=== PATIENT | male | born 1970 | race Caucasian/White ===

== ENCOUNTER 2018-03-04 00:03 | Outpatient (CLI) | payer MEDICAID, SELFPAY ==
[2018-03-04 11:41] LABS: ALT 20 U/L (12-78); AST 16 U/L (15-37); Albumin 3.7 g/dL (3.4-5.0); Alkaline Phosphatase 93 U/L (46-116); Anion Gap 6.9 mmol/L (3-11); BUN 12 mg/dL (7-18); Bilirubin, Total 0.3 mg/dL (0.2-1.0); CO2 29.1 mmol/L (21.0-32.0); CREATININE 0.86 mg/dL (0.70-1.30); Calcium 9.4 mg/dL (8.5-10.1); Chloride 101 mmol/L (98-107); Glucose 123 mg/dL (70-100); Potassium 4.3 mmol/L (3.5-5.1); Sodium 137 mmol/L (136-145); Total Protein 7.6 g/dL (6.4-8.2)
[2018-03-06 15:03] LABS: HCV RNA Detection Quantitative Detected (UNDECT)
== END 2018-03-04 00:23 ==
PROVIDERS: Visit Provider Nurse Practitioner Adult Health
DX: B18.2 Chronic viral hepatitis C (principal)
CPT/HCPCS: 36415; 80053; 87522

== ENCOUNTER 2018-04-06 07:09 | Emergency (ER) | payer MEDICAID, SELFPAY ==
[2018-04-06 07:16] VITALS: BP 149/85; PULSE 77; RESP 20; TEMP 36.5; O2SAT 96
--- NOTE | 2018-04-06 07:32 | ED.GENADUL_ITS ---
Discharge Plan Disposition Patient Disposition: HOME Condition: Stable Discharge Details Chief Complaint: Orthopedic Clinical Impression: Thoracic myofascial strain Primary Care Provider: Hong Villeda ED Provider: Pari Davis Home Meds and New Rx's Prescriptions: No Action pravastatin 10 MG tablet 20 mg PO DAILY RF: 0 buprenorphine-naloxone 1 TAB tablet, sublingual 1 ea Sublingual DAILY RF: 0 multivitamin [Daily Multi-Vitamin] 1 EACH tablet 1 ea PO RF: 0 acetaminophen [Acetaminophen Extra Strength] 500 MG tablet 500 - 1,000 mg PO Q6H PRN RF: 0 metformin [Glucophage] 1,000 MG tablet 1,000 mg PO DAILY RF: 0 polyethylene glycol 3350 17 GM powder in packet 17 gm PO DAILY RF: 0 lisinopril-hydrochlorothiazide 1 EACH tablet 1 tab PO DAILY RF: 0 Discharge Instructions Instructions: Muscle Strain (ED), Thoracic Back Strain (ED) Additional Instructions: Alternate ice and heat to the affected area several times daily for 20 minutes at a time. Alternate Tylenol and Motrin as needed and directed for pain. Use the back stretching and spasm exercises we discussed to help with pain and muscle relaxation. Follow-up with your primary care doctor in 1 week for reevaluation. Return immediately to the emergency department any worsening or new concerning symptoms. Discharge Data Discharge Physician: Pari Davis Medical Decision Making 47-year-old male presents with right thoracic pain for the past 5 days. 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 Pain worse with movement of his head and right arm. Tenderness to palpation R paraspinal thoracic region. No evidence of trauma, infection or rash. Normal heart and lung exam. Pain worse with movement of his head and right arm. Neurovascularly intact. No focal deficits. Discussed with patient that his symptoms appear consistent with thoracic strain due to frequent lifting and movement of his upper body. I do not see an indication for x-ray patient is agreeable. We will give a dose of ibuprofen here. Patient states he is on Suboxone. Upon review of medications, most muscle relaxers including Flexeril and Soma have a risk of serotonin syndrome with Suboxone. Patient states he last took his Suboxone yesterday. I discussed with patient my concern for this serious medication reaction, and if he plans to hold his Suboxone for several days, he can discuss with his primary care doctor if he needs a muscle relaxer. Discussed that the most important treatment would be continual anti-inflammatories, ice and heat, and using a exercise or tennis ball against a wall to put pressure on the muscle strain and spasm. Patient expressed concern that he was not being treated properly due to him being on the Suboxone. I explained to him again that it was due to the risk of serotonin syndrome, and my concern that if he holds his Suboxone, and takes Flexeril, and feels discomfort without Suboxone, I would be concerned if he took his Suboxone and had a serious reaction. Patient states he is concerned with holding Suboxone. He states he is agreeable with the plan at this time, and will follow up with his primary care doctor for reevaluation if needed. He is instructed to return here at any time for reevaluation if symptoms worsening. HPI General Mode of arrival: ambulatory . Date/Time Provider Initiated Documentation: 04/06/18 07:16 . Limitations to Documentation: no limitations . Information obtained by: patient . HPI Narrative: Pt is a 47yo M who presents to the ED with a complaint of right upper back pain for the past 5 days. 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 He denies any fall or direct blunt injury. Patient states he has been taking ibuprofen, alternating ice and heat without relief. Patient states he is on Suboxone. He denies any fever, chest pain, shortness of breath, abdominal pain, extremity weakness or numbness. He is admitting to occasional pain radiating down his right arm into his right elbow worse with movement of his arm. He also admits to worsening pain with movement of his head. Related Data Home Medications Medication Instructions Recorded Confirmed buprenorphine-naloxone 1 ea SUBLINGUAL DAILY 06/03/12 04/06/18 pravastatin 20 mg PO DAILY 06/03/12 04/06/18 multivitamin [Multi Vitamin Daily] 1 ea PO 07/06/12 12/10/13 acetaminophen [Acetaminophen Extra 500 - 1,000 mg PO Q6H PRN 12/10/13 12/10/13 Strength] lisinopril-hydrochlorothiazide 1 tab PO DAILY 12/10/13 04/06/18 metformin [Glucophage] 1,000 mg PO DAILY 12/10/13 04/06/18 polyethylene glycol 3350 17 gm PO DAILY 12/10/13 04/06/18 Allergies Allergy/AdvReac Type Severity Reaction Status Date / Time iso Allergy Uncoded 12/10/13 09:41 General Stated Complaint: Orthopedic ARMANDO: 3 Review of Systems Review of Systems All systems reviewed & are unremarkable except as noted in HPI and below Constitutional Reports as per HPI, Denies chills and Denies fever(s) Eyes Denies blurry vision ENT Denies dizziness, Denies sore throat and Denies throat swelling Cardiovascular Denies chest pain and Denies dyspnea Respiratory Denies cough and Denies dyspnea Gastrointestinal Denies abdominal pain, Denies diarrhea and Denies vomiting Genitourinary Denies hematuria and Denies dysuria Musculoskeletal Reports back pain and Denies numbness Integumentary/Breasts Denies lesions and Denies rash Neurologic Denies dizziness, Denies focal weakness and Denies numbness Allergic/Immunologic Denies throat swelling [facility] Medical History Anxiety (Chronic) Depression (Chronic) Diabetes (Chronic) HTN (hypertension) (Chronic) Hepatitis C (Chronic) Surgical History History of hernia repair (Chronic) Social History Smoking and Tabacco status: Current every day alcohol intake: never substance use type: former substance user Exam Const General: cooperative, healthy appearing and no acute distress HENMT Head: normal to inspection Face and sinus: normal facial exam Eyes General: appearance normal, both eyes and all related structures Neck Neck: normal visual inspection and No submandibular swelling Lymphatic: no lymphadenopathy noted Chest Chest: normal inspection of the chest and no tenderness Resp Effort & Inspection: normal respiratory effort and able to speak in complete sentences Auscultation: clear to auscultation bilaterally Cardio Rate: regular rate Rhythm: regular rhythm GI Inspection: normal to inspection Palpation: soft, not firm, not rigid and nontender Auscultation: normal bowel sounds Back/Spine/Pelvis Thoracic/Lumbar Spine: thoracic and lumbar spine normal to inspection Back/spine/pelvis image: 1. Localized area of tenderness to palpation and worsening pain with movement o f head and right arm. No edema, erythema, ecchymosis, rash or trauma. 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.) Sensory Exam: no sensory deficits noted DTR's: Rt Biceps: 2+, Lt Biceps: 2+, Rt Brachioradialis: 2+ and Lt Brachioradialis: 2+ Extrem General: normal to inspection, full ROM, normal capillary refill and no edema Psych Appearance: grossly normal Mental Status: mental status grossly normal Speech and Movement: speech and movement normal Affect: normal affect Course Vital Signs Temperature 97.7 F 04/06/18 07:16 Pulse 77 04/06/18 07:16 Respiratory Rate 20 04/06/18 07:16 Blood Pressure 149/85 H 04/06/18 07:16 Pulse Oximetry 96 04/06/18 07:16 Temperature 97.7 F 04/06/18 07:16 Temperature Source Temporal Artery Scan 04/06/18 07:16 Pulse 77 04/06/18 07:16 Respiratory Rate 20 04/06/18 07:16 Respiratory Effort 04/06/18 07:21 Blood Pressure 149/85 H 04/06/18 07:16 Blood Pressure Position Sitting 04/06/18 07:16 Pulse Oximetry 96 04/06/18 07:16 Oxygen Delivery Method Room Air 04/06/18 07:16 Oxygen Flow Rate 0 04/06/18 07:16 Pain Level 8 04/06/18 07:16
[2018-04-06] MEDS: Ibuprofen 600 MG TAB (07:35)
== END 2018-04-06 08:04 | disposition home or self-care (01) ==
LOC: ER 07:37
PROVIDERS: Emergency Provider Physician Assistant; PCP Internal Medicine
DX: S29.012A Strain of muscle and tendon of back wall of thorax, initial encounter (principal); X50.3XXA Overexertion from repetitive movements, initial encounter; E11.9 Type 2 diabetes mellitus without complications; Z79.84 Long term (current) use of oral hypoglycemic drugs; I10 Essential (primary) hypertension
CPT/HCPCS: 99283

== ENCOUNTER 2018-04-06 08:05 | Outpatient (CLI) | payer MEDICAID, SELFPAY ==
[2018-04-06 09:23] LABS: ALT 19 U/L (12-78); AST 14 U/L (15-37); Albumin 3.5 g/dL (3.4-5.0); Alkaline Phosphatase 82 U/L (46-116); Anion Gap 9.4 mmol/L (3-11); BUN 10 mg/dL (7-18); Bilirubin, Total 0.2 mg/dL (0.2-1.0); CO2 25.6 mmol/L (21.0-32.0); CREATININE 0.86 mg/dL (0.70-1.30); Calcium 8.9 mg/dL (8.5-10.1); Chloride 102 mmol/L (98-107); Glucose 147 mg/dL (70-100); Potassium 4.4 mmol/L (3.5-5.1); Sodium 137 mmol/L (136-145); Total Protein 7.8 g/dL (6.4-8.2)
[2018-04-09 14:14] LABS: HCV RNA Detection Quantitative Undetected IU/mL (UNDECT)
== END 2018-04-06 08:25 ==
LOC: NCHCN 08:07 → LBO 08:16
PROVIDERS: PCP Internal Medicine; Visit Provider Nurse Practitioner Adult Health
DX: B18.2 Chronic viral hepatitis C (principal)
CPT/HCPCS: 36415; 80053; 87522

== ENCOUNTER 2018-11-11 01:33 | Outpatient (CLI) | payer MEDICAID, SELFPAY ==
[2018-11-11 10:13] LABS: ALT 23 U/L (16-63); AST 12 U/L (15-37); Albumin 3.7 g/dL (3.4-5.0); Alkaline Phosphatase 90 U/L (46-116); BUN 13 mg/dL (7-18); Bilirubin, Total 0.4 mg/dL (0.2-1.0); CREATININE 0.87 mg/dL (0.70-1.30); Calcium 9.2 mg/dL (8.5-10.1); Chloride 99 mmol/L (98-107); Glucose 166 mg/dL (70-100); Potassium 4.4 mmol/L (3.5-5.1); Sodium 137 mmol/L (136-145); Total Protein 7.6 g/dL (6.4-8.2)
[2018-11-13 15:57] LABS: HCV RNA Detection Quantitative Undetected IU/mL (UNDECT)
== END 2018-11-11 01:53 ==
PROVIDERS: PCP Internal Medicine; Visit Provider Nurse Practitioner Adult Health
DX: B18.2 Chronic viral hepatitis C (principal)
CPT/HCPCS: 36415; 80053; 87522

== ENCOUNTER 2018-11-15 08:10 | Day surgery (SDC) | payer MEDICAID, SELFPAY ==
[2018-11-15 08:24] VITALS: BP 136/71; PULSE 83; RESP 16; TEMP 35.9; O2SAT 94
[2018-11-15] MEDS: Lactated Ringers 1,000 ML 80 ML IV (08:41)
--- NOTE | 2018-11-15 09:43 | W.COLOREPORT ---
Date of service: 11/15/18 Time of Service: 09:44 Colonoscopy Report Date of procedure: 11/15/18 Pre-op diagnosis general: CRC screening Post-op diagnosis procedure note: same Procedure: CE Surgeon: Magalis Fitzgerald Anesthesia proc note operative: GETA Estimated blood loss (mL): 0 Pathology: none sent Complications: None Disposition: same day Prep: Miralax/Dulcolax Retraction Time: 12 mins Procedure Description: After informed consent was obtained the patient was taken to the procedure room and placed in a left decubitous position. Monitors were applied and a time out was done. The patients name, date of , procedure, allergies to medications and metal in their body was reviewed. The patient was then sedated. Once sedated and comfortable a rectal exam was done. External exam was normal. Internal exam revealed a normal sphincter tone and no palpable masses. The prostate nl. The scope was then introduced and retrofelexed. No internal hemorrhoids were identified. The scope was then advanced to the cecum without difficulty. The TI and appendiceal orifice were identified. The prep was poor. The scope was then slowly retracted over 10 minutes back into the rectum. Lesions less than 5mm may have been missed secondary to poor prepp. There are no polyps AVMs or diverticula apparent. The scope was removed and the patient was woken up and taken back to Same day surgery in stable condition. The patient tolerated the procedure well and there were no immediate complications. Follow up: The patient should follow up in 10 years unless they develop changes in bowel habits or other new gastrointestinal complaints. Pt is on chronic suboxone therapy, and has problems w/ chronic constipation and needs to start fiber supplement.
--- NOTE | 2018-11-15 09:45 | W.PM.DSUDISC ---
Discharge Plan Disposition Patient Disposition: HOME Condition: Good Discharge Details Attending Provider: Magalis Fitzgerald Primary Care Provider: Hong Villeda Home Meds and New Rx's Prescriptions: Continued celecoxib [Celebrex] 400 mg capsule 400 mg PO DAILY PRNRF: 0 lisinopril 20 mg tablet 20 mg PO DAILY RF: 0 aspirin 81 mg tablet,delayed release (DR/EC) 81 mg PO DAILY RF: 0 pravastatin 10 MG tablet 20 mg PO DAILY RF: 0 buprenorphine-naloxone 1 TAB tablet, sublingual 1 ea Sublingual DAILY RF: 0 multivitamin [Daily Multi-Vitamin] 1 EACH tablet 1 ea PO RF: 0 acetaminophen [Acetaminophen Extra Strength] 500 MG tablet 500 - 1,000 mg PO Q6H PRN RF: 0 metformin [Glucophage] 1,000 MG tablet 1,000 mg PO DAILY RF: 0 polyethylene glycol 3350 17 gram powder in packet 17 gm PO DAILY PRNRF: 0 Discontinued polyethylene glycol 3350 17 gram/dose powder 238 g PO ONCE Qty: 238 RF: 0 bisacodyl [Dulcolax (bisacodyl)] 5 mg tablet,delayed release (DR/EC) 5 mg PO ONCE Qty: 4 RF: 0 Discharge Instructions Additional Instructions: Findings:normal *Start Fiber product (benefiber/metamucil/citracel) daily Follow up:repeat in 10 yrs Next C Scope- 2 day prep Please call if you develop: fevers >101.5 Nausea or Vomiting Abdominal pain that is not transient DAY SURGERY UNIT POST COLONOSCOPY INSTRUCTIONS 1. Because there will be medication in your system for the next 24 hours, you may feel a little sleepy. Your coordination will be affected. Therefore: a. Do not drive or operate dangerous equipment for 24 hours. b. Do not drink alcohol beverages for 24 hours (not even beer). c. Plan to go home and rest for the day. 2. Generally there are no restrictions on your activity after a day or so has gone by, but you may feel a bit fatigued for a few days. 3 After you arrive home you may have a light meal and return to a normal diet as you can tolerate it without feeling sick to your stomach. 4. After surgery, you may feel pain or discomfort. This should be only transient, but if it persists please contact your doctor. 5. If there are any questions regarding the findings of your procedure, please feel free to contact your doctor. 6. If you are unable to contact your doctor with a problem, contact the hospital at [phone]. 7. Continue all your regular medications unless directed otherwise. I understand the above instructions and have no questions. Signature of Patient or Responsible Adult Escort Date/Time Name of Responsible Adult Escort Signature of Nurse Date/Time Discharge Orders Discharge Orders: Discharge Order (Routine); Ordered 11/15/18 Ordered By: Magalis Fitzgerald DS: Diagnosis Discharge Diagnosis (1) Colon cancer screening: Status: Acute
[2018-11-15 10:10] VITALS: BP 123/80; PULSE 73; RESP 18; TEMP 36; O2SAT 93
== END 2018-11-15 10:20 | disposition home or self-care (01) ==
LOC: SUR 11-16 07:18
PROVIDERS: PCP Internal Medicine; Visit Provider Surgery
PROC: 0DJD8ZZ Inspection of Lower Intestinal Tract, Via Natural or Artificial Opening Endoscopic (ICD-10-PCS; CPT 45378; principal; 2018-11-15 09:30)
DX: Z12.11 Encounter for screening for malignant neoplasm of colon (principal)
CPT/HCPCS: 45378

== ENCOUNTER 2020-06-12 16:47 | Outpatient (REF) | payer MEDICAID, SELFPAY ==
[2020-06-12 21:02] LABS: Anion Gap 9.8 mmol/L (3-11); BUN 12 mg/dL (7-18); CO2 27.2 mmol/L (21.0-32.0); CREATININE 0.8 mg/dL (0.70-1.30); Calcium 8.9 mg/dL (8.5-10.1); Chloride 102 mmol/L (98-107); Glucose 128 mg/dL (74-106); Potassium 4.1 mmol/L (3.5-5.1); Sodium 139 mmol/L (136-145)
== END 2020-06-12 16:48 | disposition home or self-care (01) ==
LOC: NCHCN 16:47
PROVIDERS: PCP Internal Medicine; Visit Provider Internal Medicine
DX: I10 Essential (primary) hypertension (principal)
CPT/HCPCS: 80048

== ENCOUNTER 2021-02-17 15:27 | Outpatient (REF) | payer MEDICAID, SELFPAY ==
[2021-02-24 03:27] LABS: Fentanyl Interpretation Negative.; Fentanyl by LC-MS/MS Negative; Norfentanyl by LC-MS/MS Negative
== END 2021-02-17 15:28 | disposition home or self-care (01) ==
LOC: NCHCN 15:27
PROVIDERS: PCP Internal Medicine; Visit Provider Internal Medicine
DX: F11.21 Opioid dependence, in remission (principal)
CPT/HCPCS: 80354

== ENCOUNTER 2021-06-08 18:58 | Outpatient (REF) | payer MEDICAID, SELFPAY ==
[2021-06-08 20:37] LABS: HCT 45.2 % (40.0-50.0); HGB 14.6 g/dL (13.5-17.5); MCH 29.2 pg (27.0-33.0); MCHC 32.3 % (32.0-36.0); MCV 90.4 fL (80-95); MPV 11.8 fL (8.0-11.0); Platelet Count 270 10^3/uL (130-400); RDW 12.3 % (11.8-14.1); RDW-SD 40.9 fL
[2021-06-08 20:48] LABS: ALT 22 U/L (16-63); AST 18 U/L (15-37); Albumin 3.7 g/dL (3.4-5.0); Alkaline Phosphatase 94 U/L (46-116); Anion Gap 7.9 mmol/L (3-11); BUN 15 mg/dL (7-18); Bilirubin, Total 0.2 mg/dL (0.2-1.0); CO2 31.1 mmol/L (21.0-32.0); CREATININE 1.1 mg/dL (0.70-1.30); Chloride 103 mmol/L (98-107); Glucose 147 mg/dL (74-106); Potassium 4.3 mmol/L (3.5-5.1); Sodium 142 mmol/L (136-145); Total Protein 7.5 g/dL (6.4-8.2)
== END 2021-06-08 18:59 | disposition home or self-care (01) ==
LOC: NCHCN 18:58
PROVIDERS: PCP Internal Medicine; Visit Provider Internal Medicine
DX: I10 Essential (primary) hypertension (principal); E11.9 Type 2 diabetes mellitus without complications
CPT/HCPCS: 80053; 85027

== ENCOUNTER 2021-09-21 16:44 | Outpatient (REF) | payer MEDICAID, SELFPAY ==
[2021-09-28 05:37] LABS: Benzoylecgonine 68 ng/mL (Cutoff: 50); Cocaine Negative ng/mL (Cutoff: 50); Cocaine Interpretation Positive.
== END 2021-09-21 16:45 | disposition home or self-care (01) ==
LOC: NCHCN 16:44
PROVIDERS: PCP Internal Medicine; Visit Provider Internal Medicine
DX: F14.10 Cocaine abuse, uncomplicated (principal)
CPT/HCPCS: 80353

== ENCOUNTER 2021-10-14 12:23 | Outpatient (REF) | payer MEDICAID, SELFPAY ==
--- NOTE | 2021-10-14 09:45 | SKI_PTH ---
PATIENT: Zack Langley LOC: [facility]#:[id number] AGE/SX: 51/M ROOM: RE10/14/[address]: Hong Villeda : 1970 BED: DIS: 10/14/2021 SPEC #: [id number] RECD: 10/14/21 16:51 STATUS: HELADIO RAVI #: [id number] BERE: 10/14/21 09:[address]: Hong Villeda DEPT: Surgical Specimen RECD BY: Shari Zaragoza Tissues: 1 - SKIN BIOPSY(SHAVE/PUNCH) 2 - SKIN BIOPSY(SHAVE/PUNCH) Procedures: SKIN LEVEL 4 Comments: [id number]
== END 2021-10-14 12:24 | disposition home or self-care (01) ==
LOC: NCHCN 12:23
PROVIDERS: PCP Internal Medicine; Visit Provider Internal Medicine
DX: L28.1 Prurigo nodularis (principal)
CPT/HCPCS: 88305

== ENCOUNTER 2022-06-16 12:53 | Outpatient (REF) | payer MEDICAID, SELFPAY ==
[2022-06-16 14:43] LABS: HCT 41.6 % (40.0-50.0); HGB 14.2 g/dL (13.5-17.5); MCH 29.6 pg (27.0-33.0); MCHC 34.1 % (32.0-36.0); MCV 87 fL (80-95); MPV 10.8 fL (8.0-11.0); Platelet Count 230 10^3/uL (130-400); RDW 12.1 % (11.8-14.1); RDW-SD 38.7 fL; WBC 7.69 10^3/uL (4.4-10.8)
[2022-06-16 16:15] LABS: ALT 27 U/L (16-63); AST 15 U/L (15-37); Alkaline Phosphatase 78 U/L (46-116); Anion Gap 10.4 mmol/L (3-11); BUN 12 mg/dL (7-18); Bilirubin, Total 0.1 mg/dL (0.2-1.0); CO2 27.6 mmol/L (21.0-32.0); CREATININE 0.7 mg/dL (0.70-1.30); Calcium 9.2 mg/dL (8.5-10.1); Chloride 100 mmol/L (98-107); Estimated GFR 110.18 (mL/min/1.73m2); Glucose 111 mg/dL (74-106); Potassium 4.2 mmol/L (3.5-5.1); Sodium 138 mmol/L (136-145); Total Protein 7.8 g/dL (6.4-8.2)
== END 2022-06-16 12:54 | disposition home or self-care (01) ==
LOC: NCHCN 12:53
PROVIDERS: PCP Internal Medicine; Visit Provider Internal Medicine
DX: E11.9 Type 2 diabetes mellitus without complications (principal); I10 Essential (primary) hypertension; K75.81 Nonalcoholic steatohepatitis (NASH); F11.21 Opioid dependence, in remission; J44.9 Chronic obstructive pulmonary disease, unspecified
CPT/HCPCS: 80053; 85027

== ENCOUNTER 2022-08-10 10:09 | Outpatient (REF) | payer MEDICAID, SELFPAY ==
--- OUTSIDE RECORDS SUMMARY | 2022-08-10 10:14 | XMS_ITS ---
Author Name Clem Arevalo Address [address] [place] [address] Organization [facility] Address [address] [place] [address] Care Team Providers Care Vice President Sales And Marketing Name Role Phone Clem Arevalo Unavailable [phone] PROBLEMS Type Condition ICD9-CM Code CYF96-CO Code Onset Dates Condition Status SNOMED Code Problem Diabetes E11.9 Active 101977441 Problem Onychomycosis B35.1 Active 223577548 ALLERGIES Substance Reaction Event Type Date Status Isoniazid Unknown Drug Allergy Dec, Active ENCOUNTERS Encounter Location Date Diagnosis [facility] [address] Dec, Ingrown toenail L60.0 ; Onychomycosis B35.1 and Diabetes E11.9 [facility] [address] Nov, Ingrown toenail L60.0 ; Onychomycosis B35.1 ; Diabetes E11.9 and Tinea pedis of both feet B35.3 [facility] [address] June, Ingrown toenail L60.0 ; Onychomycosis B35.1 and Diabetes E11.9 [facility] [address] May, IMMUNIZATIONS No Known Immunizations SOCIAL HISTORY Qualifiers Date Current Smoker REASON FOR REFERRAL FUNCTIONAL STATUS PLAN OF CARE Activity Details VITAL SIGNS Height 71 in 2017-01-17 Height 71 in 2016-11-29 Height 71 in 2016-06-28 Weight 276.0 lbs 2017-01-17 Weight 288 lbs 2016-06-28 BMI 38.49 kg/m2 2017-01-17 BMI 40.16 kg/m2 2016-06-28 Temperature 98.5 degrees Fahrenheit Temperature 98.2 degrees Fahrenheit Temperature 97.9 degrees Fahrenheit Heart Rate 88 /min 2017-01-17 Heart Rate 95 /min 2016-11-29 Heart Rate 96 /min 2016-06-28 Respiratory Rate 18 /min 2017-01-17 Respiratory Rate 18 /min 2016-11-29 Respiratory Rate 18 /min 2016-06-28 Oximetry 93 % 2017-01-17 Oximetry 97 % 2016-11-29 Oximetry 97 % 2016-06-28 Blood pressure systolic 112 mm Hg Blood pressure diastolic 70 mm Hg 2016-12 MEDICATIONS Medication Instructions Dosage Frequency Start Date End Date Duration Status METFORMIN 500 mg orally daily 4 tab(s) 24h Active Suboxone 4 mg-1 mg sublingually once a day 1 ea 24h Active Chantix Continuing Month Laron 1 mg orally 2 times a day 1 tab(s) 12h Active Pravastatin Sodium 20 mg orally once a day 1 tab(s) 24h Active Triamcinolone Acetonide 0.1% applied topically 2 times a day as needed 1 cesia Active Lisinopril 20 mg orally once a day 1 tab(s) 24h Active Aspirin 81 mg orally once a day 1 tab(s) 24h Active ALEVE sodium 220 mg orally every 12 hours 1 cap(s) 12h Active PROCEDURES Procedure Date Ordered Result Body Site COBAN TAPE (61557) Jan 17, 2017 CONFORM,2in sterile,(53736) Jan 17, 2017 [facility] (25487) Jan 17, 2017 [facility] (28558) Jan 17, 2017 REMOVAL OF NAIL BED Jan 17, 2017 REMOVAL INGROWN TOENAIL Nov 29, 2016 RESULTS No Results REASON FOR VISIT 2 week f/u , P&A Right Great toenail, Referral Done, 4 mo f/u , Pt is here for f/u on chronic ingrown L great toenail, Pt states he spoke to his liver doctor and they stated he shouldNOT take fungal medication at this time, Pt states he thinks a P&A would be a good idea for himnext visit, ingrown toenail referral done requested date, Pt states he had ingrown left big toe until several days ago when he was able to pick it out once the pain had decreased enough to touch the toe., Got antibiotic from PCP; completed., Updated information Insurance Providers Health Insurance Type Health Plan Insurance Address Health Plan Insurance Phone Health Plan Insurance Name Health Plan Coverage Dates Member ID Patient Relationship to Subscriber Patient Address Patient Phone Patient Name Patient Date of Subscriber ID Subscriber Name Subscriber Date of Group No [place] [facility] [id number] [place] KALEY SOUSA [id number] SELF PAY NO INSURANCE [address] [facility] [id number] SELF PAY NO INSURANCE self KALEY SOUSA [id number]
[2022-08-18 11:43] LABS: Benzoylecgonine 144 ng/mL (Cutoff: 50); Cocaine Negative ng/mL (Cutoff: 50); Cocaine Interpretation Positive.
== END 2022-08-10 10:10 | disposition home or self-care (01) ==
LOC: NCHCN 10:09
PROVIDERS: PCP Internal Medicine; Visit Provider Internal Medicine
DX: F14.10 Cocaine abuse, uncomplicated (principal)
CPT/HCPCS: 80353

== ENCOUNTER 2023-02-16 16:00 | Outpatient (REF) | payer MEDICAID, SELFPAY ==
[2023-02-23 07:33] LABS: Cocaine Negative ng/mL (Cutoff: 50)
== END 2023-02-16 16:01 | disposition home or self-care (01) ==
LOC: NCHCN 16:00
PROVIDERS: PCP Internal Medicine; Visit Provider Internal Medicine
DX: F90.0 Attention-deficit hyperactivity disorder, predominantly inattentive type (principal); F14.10 Cocaine abuse, uncomplicated
CPT/HCPCS: 80353

== ENCOUNTER 2023-09-07 12:18 | Outpatient (REF) | payer MEDICAID, SELFPAY ==
--- OUTSIDE RECORDS SUMMARY | 2023-09-07 12:22 | XMS_ITS | Clinical Summary ---
Author Organization [facility] Address [facility] [place] [address] Care Team Providers Care Gut Snatcher Name Role Phone Wendi Singh MD Primary Care Provider [phone] Allergies Active Allergy Reactions Criticality Noted Date Comments Isoniazid High 07/02/2012 ? Rash... Medications Medication Sig Dispensed Refills Start Date End Date Status pravastatin (PRAVACHOL) 20 mg tablet Take 20 mg by mouth daily. Active PRINZIDE 20-12.5 mg Tablet 1 tablet daily. 01/07/2014 Active SUBOXONE 2-0.5 mg Film 4 mg daily. 01/10/2014 Active aspirin 81 mg Tablet, Delayed Release (E.C.) 1 tablet daily. 0 02/25/2014 Active lisinopril (PRINIVIL;ZESTRIL) 20 mg Tablet 20 mg daily. 0 10/28/2014 Active metFORMIN (GLUCOPHAGE-XR) 500 mg Tablet Sustained Release 24 hr 2,000 mg 3 times daily. 0 10/23/2014 Active SUBOXONE 4-1 mg Film DISSOLVE 1 FILM UNDER THE TONGUE ONCE A DAY 0 12/18/2015 Active glimepiride (AMARYL) 4 mg Tablet Take 4 mg by mouth every morning (before breakfast). Active Active Problems Problem Noted Date Diagnosed Date S/P Left total knee arthroplasty, 12/02/13. Spar ks 12/03/2013 Osteoarthritis of knee 09/18/2013 Abnormal laboratory test 07/27/2012 Overview (07/27/2012): RF + secondary to Hep C infection and neg CCP. 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 cryos negative. Depression 11/07/2011 Hepatitis C 11/07/2011 Hyperlipidemia 11/07/2011 Diabetes mellitus 11/07/2011 Resolved Problems Problem Noted Date Diagnosed Date Resolved Date S/P total knee arthroplasty, left 12/05/2013 12/12/2014 Knee pain 11/01/2011 12/12/2014 Family History Medical History Relation Comments Heart Failure Brother 7 High Cholesterol Brother 8 Hypertension Brother 9 Heart Failure Father High Cholesterol Father Hypertension Father Cancer Mother Relation Status Comments Brother 1 Alive age 64 Brother 2 Alive age 55, HCV Brother 3 Alive age 53, CABG Brother 4 Alive age 48, ?HCV Brother 5 Alive premature Brother 6 Alive ?premature twins Brother 7 Brother 8 Brother 9 Father (Age 56) MS Mother (Age 54) cancer Sister 1 Alive age 61 Sister 2 Alive age 45 Sister 3 Alive age 40, psychiat la illness Sister 4 (Age 3) fire Son 1 Alive age 2, healthy Son 2 Alive born 09/26/12, he althy Social History Tobacco Use Types Packs/Day Years Used Date Smoking Tobacco: Every Day Cigarettes 0.5 25 Smokeless Tobacco: Never Tobacco Cessation:Ready to Q uit: No; Counseling Given: Yes Alcohol Use Standard Drinks/Week Comments Yes 4 (1 standard drink = 0.6 oz pur e alcohol) Sex and Gender Information Value Date Recorded Sex Assigned at Not on file Gender Identity Not on file Sexual Orientation Not on file Last Filed Vital Signs Vital Sign Reading Time Taken Comments Blood Pressure 105/58 10/18/2018 9:59 AM EDT Pulse 75 10/18/2018 9:59 AM EDT Temperature 37.1 ??C (98.7 ??F) 01/02/2014 10:[address] Respiratory Rate 16 12/05/2013 2:34 PM EDT Oxygen Saturation 95% 12/05/2013 5:35 AM EDT Inhaled Oxygen Concentration - - Weight 128.4 kg (283 lb) 10/18/2018 9:59 AM EDT Height 181 cm (5' 11.26) 10/18/2018 9:59 AM EDT Body Mass Index 39.18 10/18/2018 9:59 AM EDT Plan of Treatment Health Maintenance Due Date Last Done Comments CT Colonography 1968 Colonoscopy 1968 Colorectal Cancer Screening 1968 FIT DNA 1968 FIT 1968 Sigmoidoscopy (10 year) with FIT yearly 1968 Sigmoidoscopy 1968 DM Opthalmology Exam 1978 DM Urine Microalbumin yearly 1978 Tdap adult 07/23/1987 Tetanus vaccine 07/23/1987 DM Hemoglobin A1c 03/06/2014 12/04/2013 Zoster vaccine (1 of 2) 2018 DM Creatinine yearly 11/12/2019 11/11/2018, 11/11/2018, 04/06/2018, Additional history exists Covid-19 Vaccine (1 - 2022-2 4 season) 2022 Influenza (Flu) vaccine (1 o f 1 - Influenza standard series) 10/29/2023 HIV screen Completed 03/18/2013 Goals Goal Patient Goal Type Associated Problems Recent Progress Patient-Stated? Author DH Home Medication Compliance and Understanding Patient Facing Action Plan No Yaquelin Hutton, [facility] Note: SVR12 through treatment with Mavyret. Medical Devices Implanted Type Area Apparatus Engineering Technologist Device Identifier Shelf Expiration Date Model / Serial / Lot Cement,Bne,Cmw 1,Gnta,40gm ([id number]) - [id number] Implanted:Qty: 1 on 12/02/2013 by Mihir Herrera MD at [facility] IMPLANTS Left: Knee DO NOT USE Depuy Occupational Therapy Program Director - 3527 05/27/2016 0 / / [id number] Tray,Felipa,Rp ,Tib,Base,Sz7 ([id number]) (Autoreq) - [id number] Implanted:Qty: 1 on 12/02/2013 by Mihir Herrera MD at [facility] IMPLANTS Left: Knee DO NOT USE Depuy Occupational Therapy Program Director - 3527 04/26/2022 7 / / [id number] Inser,Felipa,P s,Fem,Sz7,Lt ([id number]) (Autoreq) - [id number] Implanted:Qty: 1 on 12/02/2013 by Mihir Herrera MD at [facility] IMPLANTS Left: Knee DO NOT USE Depuy Occupational Therapy Program Director - 3527 06/27/2023 1503-12-07 / [id number] Felipa Almanza M dl,Augustina,41mm ([id number]) (Autoreq) - [id number] Implanted:Qty: 1 on 12/02/2013 by Mihir Herrera MD at [facility] IMPLANTS Left: Knee DO NOT USE Depuy Occupational Therapy Program Director - 3527 08/26/2016 1517-11-30 / [id number] Felipa Roy P s,Rp,Sz7,7mm ([id number]) (Autoreq) - [id number] Implanted:Qty: 1 on 12/02/2013 by Mihir Herrera MD at [facility] IMPLANTS Left: Knee DO NOT USE Depuy Occupational Therapy Program Director - 3527 06/26/2018 / [id number] Procedures Procedure Name Priority Date/Time Associated Diagnosis Comments EXTERNAL LAB CBC CMP THYROID RESULTS PANEL Routine 11/11/2018 HEMOGLOBIN A1C Routine 12/04/2013 3:54 AM EDT HIV SCREEN, 4TH GENERATION ([facility]/APD/[facility]) Routine 03/18/2013 9:31 AM EST Chronic hepatitis C from Last 3 Months or Most Recently Relevant to Health Maintenance Results * CBC / CMP / Thyroid External Results (11/11/2018) Sodium 137 Potassium 4.4 Chloride 99 CO2 27 BUN 13 Creatinine 0.87 Estimated GFR >60 Glucose Lvl 166 Calcium 9.2 Total Protein 7.6 Albumin 3.7 Total Bilirubin 0.4 Alk Phos 90 AST 12 ALT 23 Historical Provider POINT OF CARE JUAN T ORDERABLES * (ABNORMAL) Hemoglobin A1c (12/04/2013 3:54 AM EDT) Hemoglobin A1C 6.7(H) <=5.6 % NICOLAS Bradley [facility] Comment: Reference Range: 4.3 - 5.6% 5.7 - 6.4% - Increased Risk of Developing Diabetes Mellitus 6.5% - Consistent with diagnosis of Diabetes Mellitus In the absence of hyperglycemia (i.e. plasma glucose > 200 mg/dL) or classic symptoms of hyperglycemia a repeat measurement of HbA1c should be performed on a separate sample to confirm the diagnosis. Diagnosis and Classification of Diabetes Mellitus, Diabetes Care 2013; 36: Suppl. 1, S67-74 Est Avg Gluc 146 mg/dL RANDY [facility] Comment: eAG equivalents for HbA1c percentages: HbA1c(%) ?eAG(mg/dL) 6.0 ?126 6.5 ?140 7.0 ?154 7.5 ?169 8.0 ?183 8.5 ?197 9.0 ?212 9.5 ?226 10.0 ? 240 Limitations: The eAG calculation has not been validated on women, individuals below 18 years old and above 70 years old, and individuals with hemoglobinopathies. Additional resources are available on the ADA website: http://Maxcyte.com/DHMCadacalc lBake KENNEY, Charley J, Gian R, et al. ??Translating the A1C assay into estimated average glucose values. ??Diabetes Care 2008:31(8):2698-5713. Blood specimen (specimen) 12/04/2013 3:54 AM EDT 12/04/2013 10:05 AM EDT Narrative Resulting Agency Comment Spec In Lab Mihir Herrera MD CHEMISTRY ORDERABLES RANDY [facility] * HIV (03/18/2013 9:31 AM EST) HIV 1/2 Ab Negative Negative RANDY MORALES Blood specimen (specimen) 03/18/2013 9:31 AM EST 03/18/2013 9:38 AM EST Narrative Resulting Agency Comment Spec In Lab Mendez Peralta MD IMMUNOLOGY ORDERABL ES RANDY MORALES from Last 3 Months or Most Recently Relevant to Health Maintenance Advance Directives Documents on File Type Date Recorded Patient Fancy Needleworker Expl anation Advance Directives and Livin g Will 07/17/2015 10:05 AM 09/30/13 * Full Code (Latest Code Status on File) Date Activated Date Inactivated Comments 12/02/2013 10:13 AM 12/05/2013 7:37 PM Question Answer Comments Does patient have decision m aking capacity? Yes, order is based on Patient wishes. Care Teams Gut Snatcher Relationship Specialty Start Date End Date Wendi Singh MD [address] [place] [address] PCP - General Family Medicine 12/11/14
--- OUTSIDE RECORDS SUMMARY | 2023-09-07 12:22 | XMS_ITS | Encounter Summary ---
Author Organization [facility] [place] [address] Care Team Providers Care Floating Derrick Operator Name Role Phone Wendi Singh MD Primary Care Provider [phone] Encounter Details Date Type Department Care Team (Late st Contact Info) Description 02/12/2019 External Results [place] [address] Vera Clark MEDICARE SALES EXECUTIVE [facility] [place] [address] Social History Tobacco Use Types Packs/Day Years Used Date Smoking Tobacco: Every Day Cigarettes 0.5 25 Smokeless Tobacco: Never Alcohol Use Standard Drinks/Week Comments Yes 4 (1 standard drink = 0.6 oz pur e alcohol) Sex and Gender Information Value Date Recorded Sex Assigned at Not on file Gender Identity Not on file Sexual Orientation Not on file documented as of this encounter Plan of Treatment Not on file documented as of this encounter Goals Goal Patient Goal Type Associated Problems Recent Progress Patient-Stated? Author [facility] Medication Compliance and Understanding Patient Facing Action Plan Yaquelin Lau, [facility] Note: SVR12 through treatment with Mavyret. documented as of this encounter Procedures Procedure Name Priority Date/Time Associated Diagnosis Comments EXTERNAL LAB CBC CMP THYROID RESULTS PANEL Routine 11/11/2018 EXTERNAL LAB GI RESULTS PANEL Routine 11/11/2018 documented in this encounter Results * GI External Results (11/11/2018) HCV Viral Load <15 Comment:undetected Historical Provider POINT OF CARE JUAN T ORDERABLES * CBC / CMP / Thyroid External Results (11/11/2018) Sodium 137 Potassium 4.4 Chloride 99 CO2 27 BUN 13 Creatinine 0.87 Estimated GFR >60 Glucose Lvl 166 Calcium 9.2 Total Protein 7.6 Albumin 3.7 Total Bilirubin 0.4 Alk Phos 90 AST 12 ALT 23 Historical Provider POINT OF CARE JUAN T ORDERABLES documented in this encounter Visit Diagnoses Not on filedocumented in this encounter Care Teams Floating Derrick Operator Relationship Specialty Start Date End Date Wendi Singh MD [address] [place] [address] PCP - General Family Medicine 12/11/14 documented as of this encounter
--- OUTSIDE RECORDS SUMMARY | 2023-09-07 12:23 | XMS_ITS | Encounter Summary ---
Author Organization [facility] [place] [address] Care Team Providers Care Canal Boat Captain Name Role Phone Ashley Calixto MD Primary Care Provider [phone] Reason for Referral * Occupational Therapy (Routine) - Closed Specialty Diagnoses / Procedures Referred By Casey reyes Referred To Contact Occupational Therapy Diagnoses S/P total knee arthroplasty, left Mihir Herrera MD [facility] [place] [address] [facility] [place] [address] Referral ID Status Reason Start Date Expiration Date V isits Requested Visits Authorized [id number] Closed Evaluate and Treat 04/04/2014 04/04/2015 1 1 Reason for Visit * Reason Onset Date Comments Other 04/04/2014 Encounter Details Date Type Department Care Team (Late st Contact Info) Description 04/04/2014 Telephone [place] [address] Mihir Herrera MD [facility] [place] [address] Other Social History Tobacco Use Types Packs/Day Years Used Date Smoking Tobacco: Every Day Cigarettes 0.5 25 Smokeless Tobacco: Never Comments:stopped on the 8th, using a patch Alcohol Use Standard Drinks/Week Comments Yes 0 (1 standard drink = 0.6 oz pure alcohol) Not drinking at this time. VERY OCCASIONAL Sex and Gender Information Value Date Recorded Sex Assigned at Not on file Gender Identity Not on file Sexual Orientation Not on file documented as of this encounter Miscellaneous Notes * Telephone Encounter - Meghana Gleason RN - 04/04/2014 2:09 PM EST Referral to OT with direction re return to work placed. * Telephone Encounter - Marcelina Pandey - 04/04/2014 11:30 AM EST We received a work capabilities form from [employer] to complete for this patient. In order to proceed, the patient will need to complete a WRAP. Please place the referral so we may review the patient's work capabilities. documented in this encounter Plan of Treatment Scheduled Referrals Name Type Priority Associated Diagnoses Order Schedule Referral to Occupational Therapy Outpatient Referral Routine S/P total knee arthroplasty, left Ordered: 04/04/2014 documented as of this encounter Visit Diagnoses Diagnosis S/P total knee arthroplasty, left- Primary documented in this encounter Care Teams Canal Boat Captain Relationship Specialty Start Date End Date Ashley Calixto MD [address] [place] [address] PCP - General 12/21/11 12/10/14 documented as of this encounter
--- OUTSIDE RECORDS SUMMARY | 2023-09-07 12:23 | XMS_ITS | Encounter Summary ---
Author Organization [facility] Address [facility] [place] [address] Care Team Providers Care Pantograph Operator Name Role Phone Ashley Calixto MD Primary Care Provider [phone] Encounter Details Date Type Department Care Team (Latest Contact Info) Description 05/14/2014 11:58 AM EDT - 05/14/2014 11:59 PM EDT [place] [address] Mendez Peralta MD [facility] DR GASTROENTER[place] [address] Chronic viral hepatitis C; Chronic hepatitis C Discharge Disposition: Home Social History Tobacco Use Types Packs/Day Years Used Date Smoking Tobacco: Every Day Cigarettes 0.5 25 Smokeless Tobacco: Never Comments:stopped on the , using a patch Alcohol Use Standard Drinks/Week Comments Yes 0 (1 standard drink = 0.6 oz pure alcohol) Not drinking at this time. VERY OCCASIONAL Sex and Gender Information Value Date Recorded Sex Assigned at Not on file Gender Identity Not on file Sexual Orientation Not on file documented as of this encounter Medications at Time of Discharge Medication Sig Dispensed Refills Start Date End Date PRINZIDE 20-12.5 mg Tablet 1 tablet daily. 01/07/2014 SUBOXONE 2-0.5 mg Film 4 mg daily. 01/10/2014 aspirin 81 mg Tablet, Delayed Release (E.C.) 1 tablet daily. 0 02/25/2014 pravastatin (PRAVACHOL) 20 mg tablet Take 20 mg by mouth daily. ammonium lactate (LAC-HYDRIN) 12 % Lotion 0 01/09/201412/2014 NAPROXEN SODIUM (ALEVE ORAL) Take by mouth nightly. Takes pm 08/07/2014 METFORMIN HCL (METFORMIN ORAL) Take 4 tablets by mouth daily. 500mg 12/11/2014 documented as of this encounter Plan of Treatment Scheduled Orders Name Type Priority Associated Diagnoses Orde r Schedule CBC (with Diff) Lab Routine Chronic hepatitis C 1 Occurrences starting 05/14/2014 until 05/14/2014 Comprehensive metabolic panel (non-fasting) Lab Routine Chronic hepatitis C 1 Occurrences starting 05/14/2014 until 05/14/2014 documented as of this encounter Procedures Procedure Name Priority Date/Time Associated Diagnosis Comments HCV QUANT Routine 05/14/2014 12:17 PM EDT Chronic hepatitis C SCAN, PERIPHERAL BLOOD Routine 5 12:17 PM EDT NUCLEATED RED BLOOD CELLS Routine 05/14/2014 12:17 PM EDT HEMOGRAM Routine 05/14/2014 12:17 PM EDT Chronic viral hepatitis C DIFFERENTIAL, AUTOMATED Routine 05/14/2014 12:17 PM EDT Chronic viral hepatitis C HEPATITIS C RNA, QUANTITATIVE, PCR Routine 05/14/2014 12:17 PM EDT Chronic hepatitis C CBC (WITH DIFF) Routine 05/14/2014 12:17 PM EDT Chronic viral hepatitis C COMPREHENSIVE METABOLIC PANEL (NON-FASTING) Routine 05/14/2014 12:17 PM EDT Chronic viral hepatitis C documented in this encounter Results * Nucleated Red Blood Cells (05/14/2014 12:17 PM EDT) nRBC % Auto 0.0 % [facility]UM nRBC Abs Auto 0.000 0.000 - 0.012 x10(3)/mcL [facility] [employer] Blood specimen (specimen) 05/14/2014 12:17 PM EDT 05/14/2014 12:27 PM EDT Narrative Resulting Agency Comment Spec In Lab Mendez Peralta MD HEMATOLOGY ORDERABL ES Performing Organization Address [facility] Co de Phone Number [facility] * Scan, Peripheral Blood (05/14/2014 12:17 PM EDT) Pathologist [facility] Plat Estimate Normal [facility] RBC Morphology Normal [facility] Blood specimen (specimen) 05/14/2014 12:17 PM EDT 05/14/2014 12:27 PM EDT Narrative Resulting Agency Comment Spec In Lab Mendez Peralta MD HEMATOLOGY ORDERABL ES Performing Organization Address [facility] Phone Number [facility] * HCV Quant Devonte (05/14/2014 12:17 PM EDT) [facility] HCV Viral Load 1,011,586 IU/mL [facility] HCV Viral Load Result: [id number] IU/mL Indication for Study: Hepatitis C Infection Analysis: A quantitiative real time reverse transcriptase PCR assay was performed on extracted viral RNA for the purpose of quantification. Sample: plasma (1 mL minimum volume) Method: Devonte Jose TaqMAN 48 HCV Linear Range: 15 IU/mL - 100,000,000IU/mL (95% CI) Note: This assay is being performed in the [facility] Molecular Pathology Laboratory. Bertin Beach, Ph.D. Director, Molecular Pathology [facility] Comment: [VERIFIED DATE]05.19.14 Verified By:Michelle Ayala I (Electronic Signature) Blood specimen (specimen) 05/14/2014 12:17 PM EDT 05/16/2014 10:59 AM EDT Narrative Resulting Agency Comment Spec In Lab Mendez Peralta MD HEMATOLOGY ORDERABL ES Performing Organization Address [facility] Co de Phone Number [facility] * (ABNORMAL) Differential, Automated (05/14/2014 12:17 PM EDT) [facility] Neutrophils % 54.4 % [facility] Neutr Abs (ANC) 6.84(H) 1.50 - 6.30 x10(3)/mc L [facility] Lymphocytes % 36.8 % [facility] Lymphocytes Abs 4.6(H) 1.0 - 3.6 x10(3)/mc L [facility] Monocytes % 5.0 % [facility] Monocyte Abs 0.6 0.2 - 1.0 x10(3)/mc L [facility] Eosinophils % 3.2 % [facility]ENNI[facility] Eosinophils Abs 0.4 0.0 - 0.5 x10(3)/mc L [facility] MILLENNIUM Basophils % 0.4 % [facility]ILLENNIUM Basophils Abs 0.0 0.0 - 0.2 x10(3)/mc L [facility] Immature Gran % 0.20 % [facility] Comment: Immature granulocytes(IG's)percentage and absolute count will include metamyelocytes, myelocytes, and promyelocytes. Blood smears from CBCs yielding IG's will be scanned manually for concordance. If this scan disagrees with the automated IG or if promyelocytes are noted, a manual differential will be performed. Alexa Gran Abs 0.02 0.00 - 0.05 x10(3)/mc L [facility]NI[facility] Blood specimen (specimen) 05/14/2014 12:17 PM EDT 05/14/2014 12:27 PM EDT Narrative Resulting Agency Comment Spec In Lab Mendez Peralta MD HEMATOLOGY ORDERABL ES [facility] * (ABNORMAL) Hemogram (05/14/2014 12:17 PM EDT) WBC 12.6(H) 4.0 - 10.0 x10(3)/mcL [facility]NI[facility] RBC 4.88 4.63 - 6.08 x10(6)/mcL [facility] Hemoglobin 14.3 13.7 - 17.5 gm/dL [facility] Hematocrit 41.3 40.0 - 51.0 % [facility] MILLENNIUM MCV 84.6 79.0 - 92.0 fL [facility] MILLENNIUM MCH 29.3 25.6 - 32.2 pg CERNER MILLENNIUM MCHC 34.6 32.0 - 36.5 gm/dL [facility] Platelets 285 145 - 370 x10(3)/mcL [facility]NI[facility] RDWSD 39.7 35.0 - 46.0 fL [facility] MILLENNIUM RDWCV 13.0 10.9 - 14.4 % [facility] MILLENNIUM MPV 11.4 9.0 - 12.0 fL [facility] Blood specimen (specimen) 05/14/2014 12:17 PM EDT 05/14/2014 12:27 PM EDT Narrative Resulting Agency Comment Spec In Lab Mendez Peralta MD HEMATOLOGY ORDERABL ES [facility] * (ABNORMAL) Comprehensive metabolic panel (non-fasting) (05/14/2014 12:17 PM EDT) Glucose Lvl 89 60 - 199 mg/dL [facility] MILLENNIUM Comment:Diabetes: >=200 mg/d L plus symptoms BUN 13 10 - 20 mg/dL [facility] MILLENNIUM Creatinine 0.77(L) 0.80 - 1.50 mg/dL [facility] MILLENNIUM Comment: Please note that the pediatric reference intervals supplied above were not validated at [facility]. Results from pediatric patients should be interpreted in conjunction to the patient's age, height and muscle mass. Sodium 138 135 - 145 mmol/L CERNER MILLENNIUM Potassium 4.5 3.5 - 5.0 mmol/L [facility] MILLENNIUM Comment: Please note: ??Patients with WBC >100,000 may have falsely elevated Potassium levels. ??For accurate Potassium quantification in these patients send serum separator tube (gold top) for subsequent determinations. ??Contact the Clinical Chemistry Laboratory if there are any questions. Chloride 97(L) 98 - 107 mmol/L CERNER MILLENNIUM CO2 25 22 - 31 mmol/L [facility] MILLENNIUM Anion Gap 16(H) 5 - 15 mmol/L [facility]ERN[facility] MILLENNIUM Calcium 9.4 8.5 - 10.5 mg/dL [facility] MILLENNIUM Total Protein 8.0 6.1 - 8.0 gm/dL [facility] MILLENNIUM Albumin 4.2 3.2 - 5.2 gm/dL [facility] MILLENNIUM AST 20 0 - 39 unit/L [facility] MILLENNIUM ALT 27 0 - 55 unit/L [facility] MILLENNIUM Alk Phos 79 40 - 120 unit/L [facility] MILLENNIUM Total Bilirubin 0.2 0.2 - 1.3 mg/dL CERN[facility] MILLENNIUM Bili, Direct 0.1 0.0 - 0.3 mg/dL [facility]ERN[facility] MILLENNIUM Estimated GFR >60 >=60 [facility] MILLENNIUM Comment: This estimated GFR (eGFR) value was calculated using the MDRD equation which has been validated on patients between the ages of 18 and 70. The MDRD should not be used to assess kidney function in patients < 18 years of age or in patients with extremes of body mass, or in patients with acute kidney failure. This value should be multiplied by 1.2 for patients. For further information please copy and paste the following links into your internet browser. http://Viddler/DHnkdep [email or web address]/[email or web address] Blood specimen (specimen) 05/14/2014 12:17 PM EDT 05/14/2014 12:27 PM EDT Narrative Resulting Agency Comment Spec In Lab Mendez Peralta MD CHEMISTRY ORDERABLE S RANDY MORALES documented in this encounter Visit Diagnoses Diagnosis Chronic viral hepatitis C Chronic hepatitis C without mention of hepatic coma Chronic hepatitis C Chronic hepatitis C without mention of hepatic coma documented in this encounter Care Teams Pantograph Operator Relationship Specialty Start Date End Date Ashley Calixto MD [address] [place] [address] PCP - General 12/21/11 12/10/14 documented as of this encounter
--- OUTSIDE RECORDS SUMMARY | 2023-09-07 12:23 | XMS_ITS | Encounter Summary ---
Author Organization [facility] [place] [address] Care Team Providers Care Hydrogen Power Plant Manager Name Role Phone Ashley Calixto MD Primary Care Provider [phone] Reason for Visit * Reason Comments Aftercare Of Tjr L TKA 12/02/13 Encounter Details Date Type Department Care Team (Late st Contact Info) Description 08/07/2014 3:45 PM EDT Office [place] [address] Mihir Herrera MD [facility] [place] [address] Status post left knee replacement (Primary Dx) Discharge Disposition: Home Social History Tobacco Use Types Packs/Day Years Used Date Smoking Tobacco: Every Day Cigarettes 0.5 25 Smokeless Tobacco: Never Tobacco Cessation:Ready to Q uit: No; Counseling Given: Yes Alcohol Use Standard Drinks/Week Comments Yes 0 (1 standard drink = 0.6 oz pure alcohol) Not drinking at this time. VERY OCCASIONAL Sex and Gender Information Value Date Recorded Sex Assigned at Not on file Gender Identity Not on file Sexual Orientation Not on file documented as of this encounter Last Filed Vital Signs Vital Sign Reading Time Taken Comments Blood Pressure 120/69 08/07/2014 4:05 PM EDT Pulse 91 08/07/2014 4:05 PM EDT Temperature - - Respiratory Rate - - Oxygen Saturation - - Inhaled Oxygen Concentration - - Weight 121.4 kg (267 lb 9.6 oz) 08/07/2014 4:05 PM EDT Height 180.3 cm (5' 11) 08/07/2014 4:05 PM EDT Body Mass Index 37.32 08/07/2014 4:05 PM EDT documented in this encounter Progress Notes * Mihir Herrera MD - 08/07/2014 4:45 PM EDT Subjective: Patient ID: Zack Langley is a 44 y.o. male. Case Date: 12/02/2013 Procedure(s): LEFT TOTAL KNEE ARTHROPLASTY MODIFIER: ATTUNE STABILIZED ROTATING PLATFORM DEPUY HPI The patient is doing well overall. He recently moved into a home which he thinks is better for his children. He feels like the knee has dramatically helped him with pain. 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 He does not have any other training. No fever or chills. Sugars have been well controlled. Allergies Allergen Reactions ??? Isoniazid ? Rash... Current Outpatient Prescriptions on File Prior to Visit Medication Sig Dispense Refill ??? PRINZIDE 20-12.5 mg Tablet 1 tablet daily. ??? SUBOXONE 2-0.5 mg Film 2 mg daily. ??? aspirin 81 mg Tablet, Delayed Release (E.C.) 1 tablet daily. 0 ??? METFORMIN HCL (METFORMIN ORAL) Take 4 tablets by mouth daily. 500mg ??? pravastatin (PRAVACHOL) 20 mg tablet Take 20 mg by mouth daily. No current facility-administered medications on file prior to visit. Patient Active Problem List Diagnosis Code ??? Knee pain 719.46 ??? Depression 311 ??? Hepatitis C 070.70 ??? Hyperlipidemia 272.4 ??? Diabetes mellitus 250.00 ??? Neurodermatitis 698.3 ??? Abnormal laboratory test 796.4 ??? Alcohol abuse, in remission 305.03 ??? Narcotic abuse in remission 305.43 ??? Osteoarthritis of knee 715.96 ??? S/P Left total knee arthroplasty, 12/02/13. Javier V43.65 ??? S/P total knee arthroplasty, left V43.65 Review of Systems Objective: Physical Exam Blood pressure 120/69, pulse 91, height 180.3 cm (5' 11), weight 121.383 kg (267 lb 9.6 oz). I have made the following determinations: Post Op Left Knee Exam: Gait Abnormality: Normal Knee ROM: Extension:0 Flexion: 125 Alignment: 0-4 degrees Neutral Stability: A/P Translation <5mm Varus (lateral stability) <5mm Valgus (medial stability) <5mm Extension La degrees or less Patella Tracking: Normal Pulses Palpable: Left PT:Yes Left DP:Yes Motor/Sensory: Distal Motor: Normal Distal Sensory: Normal Quadriceps Strength:5 Assessment and Plan: S/P L TKA Discussed the findings with the patient. Clinically he is doing well from his knee. Discussed vocational rehab as I agree with him that priscilla is certainly more dangerous for him with an arthroplasty. We will see him back at the one year anniversary of his surgery with x-ray. Discussed usual precautions, He knows to call with any questions or concerns. documented in this encounter Plan of Treatment Not on file documented as of this encounter Results * XR knee diagnostic 1 or 2 view (12/11/2014 2:47 PM EDT) Anatomical Region Laterality Modality Knee N/A Digital Radiogra phy Impressions 12/11/2014 4:29 PM EDT IMPRESSION: Left total knee arthroplasty without radiographic complication. I have personally reviewed the image(s) and the residents interpretation and agree with the findings, ELVA ZUNIGA MD at 12/11/2014 4:29 PM Narrative 12/11/2014 4:29 PM EDT EXAMINATION: XR KNEE DIAGNOSTIC 1 OR 2 VIEW/LEFT CLINICAL HISTORY: s/p tka follow up TECHNIQUE: AP view bilateral knees, lateral view left knee COMPARISON: 01/02/2014 FINDINGS: Left total knee arthroplasty remains stable in appearance and alignment. No periprosthetic fracture or lucency is seen. No knee joint effusion. An enthesophyte arises from the superior patellar pole. Single AP view of the right knee is notable for mild medial compartment joint space narrowing, unchanged. Procedure Note Elva Zuniga MD - 12/11/2014 EXAMINATION: XR KNEE DIAGNOSTIC 1 OR 2 VIEW/LEFT CLINICAL HISTORY: s/p tka follow up TECHNIQUE: AP view bilateral knees, lateral view left knee COMPARISON: 01/02/2014 FINDINGS: Left total knee arthroplasty remains stable in appearance and alignment.No periprosthetic fracture or lucency is seen. No knee joint effusion. An enthesophyte arises from the superior patellar pole. Single AP view of the right knee is notable for mild medial compartmentjoint space narrowing, unchanged. IMPRESSION IMPRESSION: Left total knee arthroplasty without radiographic complication. I have personally reviewed the image(s) and the residents interpretationand agree with the findings, ELVA ZUNIGA MD at 12/11/2014 4:29 PM Mihir Herrera MD IMG DX ORDERABLES documented in this encounter Visit Diagnoses Diagnosis Status post left knee replacement- Primary Status post left knee replacement documented in this encounter Care Teams Hydrogen Power Plant Manager Relationship Specialty Start Date End Date Ashley Calixto MD [address] [place] [address] PCP - General 12/21/11 12/10/14 documented as of this encounter
--- OUTSIDE RECORDS SUMMARY | 2023-09-07 12:23 | XMS_ITS | Encounter Summary ---
Author Organization [facility] [place] [address] Care Team Providers Care Group Leader Name Role Phone Wendi Singh MD Primary Care Provider [phone] Reason for Visit * Reason Comments Follow-up Encounter Details Date Type Department Care Team (Late st Contact Info) Description 01/12/2018 10:00 AM EST Office [place] [address] Vera Clark APRN [facility] [place] [address] Chronic hepatitis C without hepatic coma Social History Tobacco Use Types Packs/Day Years Used Date Smoking Tobacco: Every Day Cigarettes 0.5 25 Smokeless Tobacco: Never Alcohol Use Standard Drinks/Week Comments Yes 0 (1 standard drink = 0.6 oz pure alcohol) Not drinking at this time. VERY OCCASIONAL Sex and Gender Information Value Date Recorded Sex Assigned at Not on file Gender Identity Not on file Sexual Orientation Not on file documented as of this encounter Last Filed Vital Signs Vital Sign Reading Time Taken Comments Blood Pressure 113/78 01/12/2018 10:52 AM EST Pulse 85 01/12/2018 10:52 AM EST Temperature - - Respiratory Rate - - Oxygen Saturation - - Inhaled Oxygen Concentration - - Weight 129.7 kg (286 lb) 01/12/2018 10:52 AM EST Height 180.3 cm (5' 11) 01/12/2018 10:52 AM EST Body Mass Index 39.89 01/12/2018 10:52 AM EST documented in this encounter Progress Notes * Vera Clark, OVERHEAD CRANE OPERATOR - 01/12/2018 10:00 AM EST Hepatology Follow Up Note Patient: Zack Langley Gender: male : 1970 Provider: Vera Clark NP Referring Physician: Wendi Singh MD Zack Langley is a 47 y.o. man with COELHO and Hepatitis C, GT 2b who is naive to treatment. I lastsaw him 1 year ago and at that time we did not pursue treatment because his insurance did not covertreatment for low fibrosis. He returns today for consideration of treatment. He has been feeling well. He is very interested in having his Hepatitis C treated. He was taking Chantix and broke out in a rash. He stopped it 2 months ago. Once he stopped taking Chantix and Glimepride, his rash went away. He is concerned about an allergic reaction to the Hepatitis C medications. His blood sugar has been okay that he knows of. He has lost some weight and his diabetes has improved. He plans to quit smoking if he takes medication for Hepatitis C. No jaundice, no blood in stools, has some constipation. Problem List: 1. Hepatitis C, genotype 2b - Liver Biopsy - 11/22/11 Stage 0-1/4 Fibrosis - Liver fibrosis panel:0.07/ F0/ no fibrosis - Fibroscan 05/2015: 4.9 kPa, 13%, 83%, F0-F1 - Liver biopsy 11/22/11: Chronic hepatitis, consistent with hepatitis C. Mild steatohepatitis (see Note). NOTE: The biopsy shows portal/periportal, predominantly lymphocytic, inflammation, grade 2/4; lobular inflammation, grade 1/4. Portal fibrosis is stage 0-1/4. Mild mixed steatosis centering on zone 3 with scattered ballooned hepatocytes is present. Very focal inflammatory infiltrate with satellitosis pattern is associated with steatosis. Iron stain is negative; trichrome stain is evaluated for the final diagnosis. CR-0 - Treatment naive. 2. COELHO - Metabolic risk factors: obesity, diabetes, hyperlipidemia 2. Class III Obesity 3. DM2 4. Hyperlipidemia 5. 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 Tobacco Abuse 7. Left Knee Pain 8. Hx of Substance Abuse - clean since 02/2011 9. Hx of Alcohol Abuse 10. S/P Left Knee Arthroscopy Preventative Health: 1. Colonoscopy - due at age 48 2. HAV/HBV: (-)/(-). He believes he has completed vaccine series through PCP Outside Labs 09/05/11: HCV genotype 2 Viral load 266,000 Cryoglobulins negative Current Outpatient Medications Medication Sig Dispense Refill ??? SUBOXONE 4-1 mg Film DISSOLVE 1 FILM UNDER THE TONGUE ONCE A DAY 0 ??? PRINZIDE 20-12.5 mg Tablet 1 tablet daily. ??? aspirin 81 mg Tablet, Delayed Release (E.C.) 1 tablet daily. 0 ??? pravastatin (PRAVACHOL) 20 mg tablet Take 20 mg by mouth daily. ??? glimepiride (AMARYL) 4 mg Tablet Take 4 mg by mouth every morning (before breakfast). ??? lisinopril (PRINIVIL;ZESTRIL) 20 mg Tablet 0 ??? metFORMIN (GLUCOPHAGE-XR) 500 mg Tablet Sustained Release 24 hr 0 ??? SUBOXONE 2-0.5 mg Film 4 mg daily. No current facility-administered medications for this visit. Allergies Allergen Reactions ??? Isoniazid ? Rash... Objective: Vitals: 01/12/18 1052 BP: 113/78 Pulse: 85 Weight: 129.7 kg (286 lb) Height: 180.3 cm (5' 11) Body mass index is 39.89 kg/m??. Physical Exam Constitutional: He is oriented to person, place, and time. He appears well- developed and well-nourished. HENT: Head: Normocephalic and atraumatic. Eyes: Pupils are equal, round, and reactive to light. No scleral icterus. Neck: Normal range of motion. Neck supple. No thyromegaly present. Abdominal: Soft, obese. Bowel sounds are normal. He exhibits no distension and no mass. There is notenderness. There is no guarding. Neurological: He is alert and oriented to person, place, and time. Skin: Skin is warm and dry. No rash. No stigmata of liver disease (palmar erythema, spider angiomata). Psychiatric: He has a normal mood and affect. His behavior is normal. Lab Results Component Value Date WBC 9.4 06/15/2015 HGB 14.7 06/15/2015 HCT 41.9 06/15/2015 MCV 84.1 06/15/2015 PLATELET 227 06/15/2015 No results for input(s): INR in the last 168 hours. Chemistry Component Value Date/Time NA 136 08/19/2016 1055 K 4.3 08/19/2016 1055 CL 97 (L) 08/19/2016 1055 CO2 25 08/19/2016 1055 BUN 9 (L) 08/19/2016 1055 CREATININE 0.73 (L) 08/19/2016 1055 Component Value Date/Time CALCIUM 9.2 08/19/2016 1055 ALKPHOS 82 08/19/2016 1055 AST 24 08/19/2016 1055 ALT 48 08/19/2016 1055 BILITOT <0.2 (L) 08/19/2016 1055 Fibroscan Results 08/19/16: Mean kPa: 4.4 kPa Mean IQR: (goal is <30 %) 27% Success rate: (goal is >60%) 91% Predicted fibrosis stage: F0-F1 Fibroscan Results 01/12/18: Median kPa: 3.5 kPa Mean IQR: 11% (goal is <30 %) Number of valid measurements: 11 (at least 10 required) Number of invalid measurements: 13 Predicted fibrosis stage: F0 CAP (dB/m): 348 Estimated steatosis grade: 3/3 % hepatocytes affected: > 66 % Ultrasound 05/14/17: 1. Mild hepatomegaly (19 cm) with increased echogenicity consistent with mild fatty infiltration. No hepatic mass. 2. Small 5 mm. hepatic cyst, seen on CT, but not seen on today's exam. Assessment and Plan: Mr. Langley is a 47 y.o. man with Hepatitis C and COELHO and minimal fibrosis (F0- F1). His fibroscan today again shows no fibrosis. His treatment has previously been deferred because his insurance did not cover treatment, however insurance rules have changed and are now covering treatment of Hepatitis C for low fibrosis. I would recommend treatment of his Hepatitis C with 8 weeks of Mavyret. This has greater than 95% success rates. There is an interaction between Pravastatin and Mavyret, and I would recommend that hedecrease his Pravastatin dose to 10mg for the 8 week course of treatment with Mavyret. Instructed patient to inform us if he starts any new medications while on treatment. Plan: - Recommend treatment of his Hepatitis C with 8 weeks of Mavyret. - Decrease Pravastatin dose to 10mg while on treatment. - Blood work today - Once blood work returns, submit PA for treatment with Mavyret - Labs at week 4, end of treatment, and 3 and 6 months post-treatment - He does not need follow up in liver clinic post-treatment. - He does have risk factors and evidence of steatosis on ultrasound and fibroscan. I would recommend weight loss and glycemic control, and statin treatment, which can be done through primary care office. Can consider repeat fibroscan in 2-3 years to assess for progression of fibrosis due to COELHO Vera Clark APRN [facility] [place] [address] 25 minutes of this 30 minute visit in face to face discussion regarding disease, prognosis and treatment documented in this encounter Plan of Treatment Not on file documented as of this encounter Procedures Procedure Name Priority Date/Time Associated Diagnosis Comments HEMOGRAM Routine 01/12/2018 11:54 AM EST Chronic hepatitis C without hepatic coma DIFFERENTIAL, AUTOMATED Routine 01/12/2018 11:54 AM EST Chronic hepatitis C without hepatic coma HEPATITIS C RNA, QUANTITATIVE, PCR Routine 01/12/2018 11:54 AM EST Chronic hepatitis C without hepatic coma CBC (WITH DIFF) Routine 01/12/2018 11:54 AM EST Chronic hepatitis C without hepatic coma COMPREHENSIVE METABOLIC PANEL (NON-FASTING) Routine 01/12/2018 11:54 AM EST Chronic hepatitis C without hepatic coma documented in this encounter Results * (ABNORMAL) Differential, Automated (01/12/2018 11:54 AM EST) Neutrophils % 43.6 % [facility] Neutr Abs (ANC) 3.84 1.70 - 6.10 x10(3)/[facility] Lymphocytes % 45.8 % [facility] Lymphocytes Abs 4.0(H) 0.9 - 3.2 x10(3)/[facility] Monocytes % 6.7 % [facility] Monocyte Abs 0.6 0.3 - 0.9 x10(3)/[facility] Eosinophils % 2.9 % [facility] Eosinophils Abs 0.3 0.0 - 0.4 x10(3)/[facility] Basophils % 0.8 % [facility] Basophils Abs 0.1 0.0 - 0.1 x10(3)/[facility] Immature Gran % 0.20 % [facility] Comment: Immature granulocytes(IG's)percentage and absolute count will include metamyelocytes, myelocytes, and promyelocytes. Blood smears from CBCs yielding IG's will be scanned manually for concordance. If this scan disagrees with the automated IG or if promyelocytes are noted, a manual differential will be performed. Alexa Gran Abs 0.02 0.00 - 0.04 x10(3)/[facility] Blood specimen (specimen) 01/12/2018 11:54 AM EST 01/12/2018 12:18 PM EST Narrative Resulting Agency Comment Spec In Lab Vera Clark APRN HEMATOLOGY ORDERAB LES [facility] [place] [address] * Hemogram (01/12/2018 11:54 AM EST) WBC 8.8 4.0 - 9.5 x10(3)/[facility] RBC 4.78 4.58 - 5.54 x10(6)/[facility] Hemoglobin 14.1 13.7 - 16.5 gm/dL [facility] Hematocrit 41.3 40.5 - 48.5 % [facility] MCV 86.4 82.9 - 93.1 fL [facility] MCH 29.5 27.5 - 32.1 pg [facility] MCHC 34.1 32.0 - 35.7 gm/dL [facility] Platelets 220 145 - 357 x10(3)/[facility] RDWSD 38.4 36.0 - 45.0 [facility] RDWCV 12.0 11.4 - 13.8 % [facility] MPV 11.3 7.6 - 12.9 fL [facility] nRBC % Auto 0.0 % [facility] nRBC Abs Auto 0.000 0.000 - 0.000 x10(3)/[facility] Blood specimen (specimen) 01/12/2018 11:54 AM EST 01/12/2018 12:18 PM EST Narrative Resulting Agency Comment Spec In Lab Vera Clark APRN HEMATOLOGY ORDERAB LES [facility] [place] [address] * Hepatitis C RNA, quantitative, PCR (01/12/2018 11:54 AM EST) HCV Viral Load 1,072,106 IU/mL [facility] HCV Viral Load Result: [id number] IU/mL Indication for Study: Hepatitis C Infection Analysis: The [employer] RealTime HCV assay is an in vitro reverse toll relief operator polymerase chain reaction (RT-PCR)for the quantitation of hepatitis C viral (HCV) RNA in human serum or plasma (EDTA) from HCV-infected individuals. Sample: plasma (0.7 mL minimum volume) Method: [employer] RealTime HCV Assay Linear Range: 12 IU/mL - 100,000,000IU/mL Note: The [employer] RealTime HCV Assay has been approved by the U.S. Food and Drug Administration. [facility] Comment: [VERIFIED DATE]01.16.18 Verified By:Charissa Bennett (Electronic Signature) Blood specimen (specimen) 01/12/2018 11:54 AM EST 01/15/2018 3:01 PM EST Narrative Resulting Agency Comment Spec In Lab Vera Clark OVERHEAD CRANE OPERATOR IMMUNOLOGY ORDERAB LES [facility] [place] [address] * (ABNORMAL) Comprehensive metabolic panel (non-fasting) (01/12/2018 11:54 AM EST) Glucose Lvl 116 65 - 199 mg/dL [facility] Comment:Diabetes: >=200 mg/d L plus symptoms BUN 10 10 - 20 mg/dL [facility] Creatinine 0.75(L) 0.80 - 1.50 mg/dL [facility] Sodium 137 135 - 145 mmol/L [facility] Potassium 4.4 3.5 - 5.0 mmol/L [facility] Comment: Please note: ??Patients with WBC >100,000 may have falsely elevated Potassium levels. ??For accurate Potassium quantification in these patients send serum separator tube (gold top) for subsequent determinations. ??Contact the Clinical Chemistry Laboratory if there are any questions. Chloride 98 98 - 107 mmol/L [facility] CO2 22 22 - 31 mmol/L [facility] Anion Gap 17(H) 5 - 15 mmol/L [facility] Calcium 9.2 8.5 - 10.5 mg/dL [facility] Total Protein 7.8 6.1 - 8.0 gm/dL [facility] Albumin 4.1 3.2 - 5.2 gm/dL [facility] AST 22 0 - 39 unit/L [facility] ALT 32 0 - 55 unit/L [facility] Alk Phos 68 40 - 120 unit/L [facility] Total Bilirubin <0.2(L) 0.2 - 1.3 mg/dL [facility] Estimated GFR 108 >=60 mL/min/1. 73 m?? [facility] Comment: The eGFR was calculated using the CKD-EPI equation. As with all creatinine based estimates of kidney function, eGFR values calculated with the CKD-EPI equation are not accurate in patients with acute kidney failure, extremes of body mass or the acutely ill. [email or web address] eGFR 125 >=60 mL/min/1. 73 m?? [facility] Comment: The eGFR was calculated using the CKD-EPI equation. As with all creatinine based estimates of kidney function, eGFR values calculated with the CKD-EPI equation are not accurate in patients with acute kidney failure, extremes of body mass or the acutely ill. [email or web address] Blood specimen (specimen) 01/12/2018 11:54 AM EST 01/12/2018 12:18 PM EST Narrative Resulting Agency Comment Spec In Lab Vera Clark APRN CHEMISTRY ORDERABL ES [facility] [place] [address] documented in this encounter Visit Diagnoses Diagnosis Chronic hepatitis C without hepatic coma documented in this encounter Care Teams Group Leader Relationship Specialty Start Date End Date Wendi Singh MD [address] [place] [address] PCP - General Family Medicine 12/11/14 documented as of this encounter
--- OUTSIDE RECORDS SUMMARY | 2023-09-07 12:23 | XMS_ITS | Encounter Summary ---
Author Organization [facility] Address [facility] [address] Care Team Providers Care Lab Tech Name Role Phone Wendi Singh MD Primary Care Provider [phone] Encounter Details Date Type Department Care Team (Latest Contact Info) Description 12/11/2014 2:10 PM EDT - 12/11/2014 11:59 PM EDT Hospital Encounter XRay at [address] [place] [address] Mihir Herrera MD [facility] [place] [address] Status post left knee replacement Discharge Disposition: Home Social History Tobacco Use [...] Sig Dispensed Refills Start Date End Date lisinopril (PRINIVIL;ZESTRIL) 20 mg Tablet 20 mg daily. 0 10/28/2014 metFORMIN (GLUCOPHAGE-XR) 500 mg Tablet Sustained Release 24 hr 2,000 mg 3 times daily. 0 10/23/2014 PRINZIDE 20-12.5 mg Tablet 1 tablet daily. 01/07/2014 SUBOXONE 2-0.5 mg Film 4 mg daily. 01/10/2014 aspirin 81 mg Tablet, Delayed Release (E.C.) 1 tablet daily. 0 02/25/2014 pravastatin (PRAVACHOL) 20 mg tablet Take 20 mg by mouth daily. documented as of this encounter Plan of Treatment Not on file documented as of this encounter Procedures Procedure Name Priority Date/Time Associated Diagnosis Comments XR KNEE DIAGNOSTIC 1 OR 2 VIEW Routine 12/11/2014 2:47 PM EDT Status post left knee replacement documented in this encounter Results * XR knee diagnostic [...] Visit Diagnoses Diagnosis Status post left knee replacement documented in this encounter Care Teams Lab Tech Relationship Specialty Start Date End Date Wendi Singh MD [address] [place] [address] PCP - General Family Medicine 12/11/14 documented as of this encounter
--- OUTSIDE RECORDS SUMMARY | 2023-09-07 12:23 | XMS_ITS | Encounter Summary ---
Author Organization Formerly [facility], [facility] Address [facility] [place] [address] Care Team Providers Care Spanish Speaking Babysitter Name Role Phone Wendi Singh MD Primary Care Provider [phone] Encounter Details Date Type Department Care Team (Latest Contact Info) Description 10/18/2018 9:25 AM EDT - 10/18/2018 11:59 PM EDT Hospital Encounter XRay at [address] [place] [address] Nahomi Arechiga MD [facility] [place] [address] Status post total left knee replacement Discharge Disposition: Home Social [...] Sig Dispensed Refills Start Date End Date glimepiride (AMARYL) 4 mg Tablet Take 4 mg by mouth every morning (before breakfast). SUBOXONE 4-1 mg Film DISSOLVE 1 FILM UNDER THE TONGUE ONCE A DAY 0 12/18/2015 lisinopril (PRINIVIL;ZESTRIL) 20 mg Tablet 20 mg [...] Type Associated Problems Recent Progress Patient-Stated? Author Home Medication Compliance and Understanding Patient Facing Action Plan No Yaquelin Hutton, [facility] Note: SVR12 through treatment with Mavyret. documented as of this encounter Procedures Procedure Name Priority Date/Time Associated Diagnosis Comments XR KNEE AP & LAT LEFT Routine 10/18/2018 9:42 AM EDT Status post total left knee replacement documented in this encounter Results * XR Knee 1-2 Views Left (Generic) (10/18/2018 9:42 AM EDT) Anatomical Region Laterality Modality Knee Left Digital Radiogra phy Impressions 10/18/2018 10:38 AM EDT Knee joint effusion, increased since 2016. No interval change in the appearance of the left TKA, as described in greater detail above. Thank you for letting us participate in the care of this patient. For questions regarding this report, please contact the number below. ? Narrative 10/18/2018 10:38 AM EDT EXAMINATION: XR KNEE 1-2 VIEWS LEFT (GENERIC) CLINICAL HISTORY: Status post left total knee arthroplasty TECHNIQUE: Nonweightbearing frontal and lateral radiographs of the left knee were obtained COMPARISON: Left knee radiographs ranging from 11/07/2011 through 12/17/2015 FINDINGS: Again noted is a left total knee arthroplasty. Nonspecific 2 mm periprosthetic lucency at the posterior aspect of the femoral component appears unchanged from 2016 though increased from 2015. No periprosthetic fracture is identified. There is a knee joint effusion, increased since 2016. Procedure Note Maryana Abraham MD - 10/18/2018 EXAMINATION: XR KNEE 1-2 VIEWS LEFT (GENERIC) CLINICAL HISTORY: Status post left total knee arthroplasty TECHNIQUE: Nonweightbearing frontal and lateral radiographs of the left knee wereobtained COMPARISON: Left knee radiographs ranging from 11/07/2011 through 12/17/2015 FINDINGS: Again noted is a left total knee arthroplasty. Nonspecific 2 mmperiprosthetic lucency at the posterior aspect of the femoral component appears unchangedfrom 2016 though increased from 2015. No periprosthetic fracture is identified.There is a knee joint effusion, increased since 2016. IMPRESSION Knee joint effusion, increased since 2016. No interval change in theappearance of the left TKA, as described in greater detail above. Thank you for letting us participate in the care of this patient. Forquestions regarding this report, please contact the number below. Electronically signed by: Maryana Abraham [facility] ([phone]),at 10/18/2018 10:38 AM Nahomi Arechiga MD IMG DX ORDERABLES documented in this encounter Visit Diagnoses Diagnosis Status post total left knee replacement documented in this encounter Care Teams Spanish Speaking Babysitter Relationship Specialty Start Date End Date Wendi Singh MD [address] [place] [id number] PCP - General Family Medicine 12/11/14 documented as of this encounter
--- OUTSIDE RECORDS SUMMARY | 2023-09-07 12:23 | XMS_ITS | Encounter Summary ---
Author Organization [facility] [place] [address] Care Team Providers Care Squeegee Tender Name Role Phone Wendi Singh MD Primary Care Provider [phone] Encounter Details Date Type Department Care Team (Late st Contact Info) Description 02/12/2018 Orders Only [place] [address] Vera Clark APRN [facility] [place] [address] Chronic hepatitis C without hepatic coma Social [...] Type Associated Problems Recent Progress Patient-Stated? Author [facility] Medication Compliance and Understanding Patient Facing Action Plan Yaquelin Lau, [facility] Note: SVR12 through treatment with Mavyret. documented as of this encounter Visit Diagnoses Diagnosis Chronic hepatitis C without hepatic coma documented in this encounter Care Teams Squeegee Tender Relationship Specialty Start Date End Date Wendi Singh MD [address] [place] [address] PCP - General Family Medicine 12/11/14 documented as of this encounter
--- OUTSIDE RECORDS SUMMARY | 2023-09-07 12:23 | XMS_ITS | Encounter Summary ---
Author Organization [facility] [place] [address] Care Team Providers Care Hydrochloric Area Supervisor Name Role Phone Wendi Singh MD Primary Care Provider [phone] Reason for Visit * Reason Comments Follow-up Encounter Details Date Type Department Care Team (Late st Contact Info) Description 08/19/2016 10:00 AM EDT Office [place] [address] Vera Hong APRN [facility] [place] [address] Chronic hepatitis C without hepatic coma; Alcohol abuse, in remission Social History Tobacco Use Types Packs/Day Years [...] Sign Reading Time Taken Comments Blood Pressure 120/73 08/19/2016 10:00 AM EDT Pulse 82 08/19/2016 10:00 AM EDT Temperature - - Respiratory Rate - - Oxygen Saturation - - Inhaled Oxygen Concentration - - Weight 133.4 kg (294 lb) 08/19/2016 10:00 AM EDT Height 180.3 cm (5' 11) 08/19/2016 10:00 AM EDT Body Mass Index 41 08/19/2016 10:00 AM EDT documented in this encounter Progress Notes * Vera Hong APRN - 08/19/2016 10:00 AM EDT Hepatology Follow Up Note Patient: Zack Langley Gender: male : 1970 Provider: Vera Hong NP Referring Physician: Wendi Singh MD Zack Langley is a 46 y.o. man with COELHO and Hepatitis C, GT 2b who is naive to treatment. I lastsaw him in 04/2015 and his fibroscan at that time showed minimal fibrosis. His insurance would not cover Hepatitis C treatment so we decided to continue to monitor with follow up in 1 year. He returns today for follow up. He has dry elbows but otherwise feels well. He has been working on losing weight, trying to get weight down. Blood sugar has bee high and he was started on Glimerpide recently. He walks 2x/week. Just brought up his stationary bike last night No blood in stool, no abdominal pain, no jaundice. Problem List: 1. Hepatitis C, genotype 2b [...] Viral load 266,000 Cryoglobulins negative Current Outpatient Prescriptions Medication Sig Dispense Refill ??? SUBOXONE 4-1 mg Film DISSOLVE 1 FILM UNDER THE TONGUE ONCE A DAY 0 ??? lisinopril (PRINIVIL;ZESTRIL) 20 mg Tablet 0 ??? metFORMIN (GLUCOPHAGE-XR) 500 mg Tablet Sustained Release 24 hr 0 ??? PRINZIDE 20-12.5 mg Tablet 1 tablet daily. ??? SUBOXONE 2-0.5 mg Film 4 mg daily. ??? aspirin 81 mg Tablet, Delayed Release (E.C.) 1 tablet daily. 0 ??? pravastatin (PRAVACHOL) 20 mg tablet Take 20 mg by mouth daily. No current facility-administered medications for this visit. Allergies Allergen Reactions ??? Isoniazid ? Rash... Objective: Vitals: 08/19/16 1000 BP: 120/73 Pulse: 82 Weight: (!) 133.4 kg (294 lb) Height: 180.3 cm (5' 11) Body mass index is 41 kg/(m^2). Physical Exam Constitutional: He is oriented to [...] input(s): INR in the last 168 hours. Lab Results Component Value Date ALT 42 06/15/2015 AST 23 06/15/2015 ALKPHOS 69 06/15/2015 BILITOT 0.2 06/15/2015 Chemistry Component Value Date/Time NA 136 06/15/2015 1135 K 4.4 06/15/2015 1135 CL 98 06/15/2015 1135 CO2 23 06/15/2015 1135 BUN 8 (L) 06/15/2015 1135 CREATININE 0.78 (L) 06/15/2015 1135 Component Value Date/Time CALCIUM 9.3 06/15/2015 1135 ALKPHOS 69 06/15/2015 1135 AST 23 06/15/2015 1135 ALT 42 06/15/2015 1135 BILITOT 0.2 06/15/2015 1135 Fibroscan Results 08/19/16: Mean kPa: 4.4 kPa Mean IQR: (goal is <30 %) 27% Success rate: (goal is >60%) 91% Predicted fibrosis stage: F0-F1 Assessment and Plan: Mr. Langley is a 46 y.o. man with Hepatitis C and COELHO and minimal fibrosis (F0- F1). We repeated a fibroscan today which again shows no fibrosis of his liver. His insurance ([place] medicaid) will not cover treatment for under stage 2 fibrosis, so plan to defer treatment at this time and follow up in 1 year to monitor fibrosis and consider treatment if insurance formularies have changed. Regarding hisNASH, his blood sugar has been more elevated recently prompting his PCP to start new antihyperglycemics. He states he realizes he needs to lose weight and has started walking twice a week and plans to start using the exercise bicycle. Plan: - Encouraged low carbohydrate, low sugar diet and exercise - Follow up in 1 year with labs prior, repeat fibroscan at that time and consider treatment of Hepatitis C. 3. Preventative Health: Hepatitis A and B vaccine series. He tells me that he completed vaccine series through PCP, will check serologies today. He is interested in cutting down on cigarettes and will discuss Chantix use with his PCP which he believes will help him, although he does have a hx of depression and suicidal thoughts years ago. Vera Hong APRN Section of Gastroenterology [place] [address] 25 minutes of this 30 minute visit in face to face discussion regarding disease, prognosis and treatment documented in this encounter Procedure Notes * Vera Hong APRN - 08/19/2016 10:00 AM EDTAssociated Order(s): FIBROSCAN Procedure(s): FIBROSCAN Pre-Procedure Diagnose(s): Chronic hepatitis C without hepatic coma [facility] Liver Fibrosis Assessment Report Indication: Hepatitis C Performed by: VERA HONG APRN Procedure: Vibration Controlled Transient Elastography (VCTE) or Fibroscan [place] Protocol: Patient's identity, procedure and site were verified, confirmatory pause performed. Discussed procedure including risks and potential complications. Questions answered. Patient verbalizes understanding and wishes to proceed with Fibroscan assessment. Patient was placed in the supine position with right arm in maximum abduction to allow optimal exposure of right lateral abdomen. Patient was briefly assessed. Testing was performed in the mid-axillary location. 50Hz Shear Wave pulses were applied and the resulting Shear Wave and Propagation Speed was detected with a 3.5MHz ultrasonic signal, using the Fibroscan probe. Skin to liver capsule distance and liver parenchyma were accessed during the entire examination with the Fibroscan probe. Patient was instructed to breathe normally and abstain from sudden movements during the procedure. At least ten Sheer Waves were produced; individual measurements of each Shear Wave were calculated. Patient tolerated the procedure well with no complications. Fibroscan Results: Mean kPa: 4.4 kPa Mean IQR: (goal is <30 %) 27% Success rate: (goal is >60%) 91% Predicted fibrosis stage: F0-F1 Interpretation: Based on this Fibroscan result, history, clinical examination and review of laboratory and radiological data, this patient likely has stage 0-1 liver fibrosis. documented in this encounter Plan of Treatment Not on file documented as of this encounter Procedures Procedure Name Priority Date/Time Associated Diagnosis Comments [id number] Routine 08/19/2016 3:39 PM EDT Chronic hepatitis C without hepatic coma COMPREHENSIVE METABOLIC PANEL (NON-FASTING) Routine 08/19/2016 10:55 AM EDT Chronic hepatitis C without hepatic coma documented in this encounter Results * [id number] (08/19/2016 3:39 PM EDT) Narrative Vera Hong APRN - 08/19/2016 3:39 PM EDT Vera Hong APRN ? 08/19/2016 ??3:39 PM [facility] Liver Fibrosis Assessment Report Indication: ??Hepatitis C Performed by: ??VERA HONG APRN ?? Procedure: Vibration Controlled Transient Elastography (VCTE) or Fibroscan [place] Protocol: Patient's identity, procedure and site were verified, confirmatory pause performed. Discussed procedure including risks and potential complications. Questions answered. Patient verbalizes understanding and wishes to proceed with Fibroscan assessment. Patient was placed in the supine position with right arm in maximum abduction to allow optimal exposure of right lateral abdomen. Patient was briefly assessed. Testing was performed in the mid-axillary location. 50Hz Shear Wave pulses were applied and the resulting Shear Wave and Propagation Speed was detected with a 3.5MHz ultrasonic signal, using the Fibroscan probe. Skin to liver capsule distance and liver parenchyma were accessed during the entire examination with the Fibroscan probe. Patient was instructed to breathe normally and abstain from sudden movements during the procedure. At least ten Sheer Waves were produced; individual measurements of each Shear Wave were calculated. Patient tolerated the procedure well with no complications. Fibroscan Results: Mean kPa: 4.4 kPa Mean IQR: (goal is <30 %) 27% Success rate: (goal is >60%) 91% Predicted fibrosis stage: F0-F1 Interpretation: Based on this Fibroscan result, history, clinical examination and review of laboratory and radiological data, this patient likely has stage 0-1 liver fibrosis. Vera Hong APRN PROCEDURE/MINOR PINEDA RGICAL ORDERABLES * (ABNORMAL) Comprehensive metabolic panel (non-fasting) (08/19/2016 10:55 AM EDT) Glucose Lvl 238(H) 65 - 199 mg/dL [facility] Comment:Diabetes: >=200 mg/d L plus symptoms BUN 9(L) 10 - 20 mg/dL [facility] Creatinine 0.73(L) 0.80 - 1.50 mg/dL [facility] Comment: Please note that the pediatric reference intervals supplied above were not validated at [facility]. Results from pediatric patients should be interpreted in conjunction to the patient's age, height and muscle mass. Sodium 136 135 - 145 mmol/L [facility] Potassium 4.3 3.5 - 5.0 mmol/L [facility] Comment: Please note: ??Patients with WBC >100,000 may have falsely elevated Potassium levels. ??For accurate Potassium quantification in these patients send serum separator tube (gold top) for subsequent determinations. ??Contact the Clinical Chemistry Laboratory if there are any questions. Chloride 97(L) 98 - 107 mmol/L [facility] CO2 25 22 - 31 mmol/L [facility] Anion Gap 14 5 - 15 mmol/L [facility] Calcium 9.2 8.5 - 10.5 mg/dL [facility] Total Protein 7.7 6.1 - 8.0 gm/dL [facility] Albumin 4.0 3.2 - 5.2 gm/dL [facility] AST 24 0 - 39 unit/L [facility] ALT 48 0 - 55 unit/L [facility] Alk Phos 82 40 - 120 unit/L [facility] Total Bilirubin <0.2(L) 0.2 - 1.3 mg/dL [facility] Bili, Direct 0.1 0.0 - 0.3 mg/dL [facility] Estimated GFR >60 >=60 [facility] Comment: This estimated GFR (eGFR) value was [...] the following links into your internet browser. [email or web address] [email or web address] Blood specimen (specimen) 08/19/2016 10:55 AM EDT 08/19/2016 11:03 AM EDT Narrative Resulting Agency Comment Spec In Lab Vera Hong APRN CHEMISTRY ORDERABL ES Performing Organization Address City/State/[facility] Co de Phone Number [facility] [place] [address] documented in this encounter Visit Diagnoses Diagnosis Chronic hepatitis C without hepatic coma Alcohol abuse, in remission Nondependent alcohol abuse, in remission documented in this encounter Care Teams Hydrochloric Area Supervisor Relationship Specialty Start Date End Date Wendi Singh MD [address] [place] [address] PCP - General Family Medicine 12/11/14 documented as of this encounter
--- OUTSIDE RECORDS SUMMARY | 2023-09-07 12:23 | XMS_ITS | Encounter Summary ---
Author Organization [facility] [place] [address] Care Team Providers Care National Coverage Specialist Name Role Phone Ashley Calixto MD Primary Care Provider [phone] Encounter Details Date Type Department Care Team (Late st Contact Info) Description 01/24/2014 Orders [place] [address] Judy Holman APRN [facility] GASTROENTER[place] [address] Chronic hepatitis C Social History Tobacco Use Types Packs/Day Years [...] documented as of this encounter Results * US abdomen complete (05/14/2014 11:42 AM EDT) Anatomical Region Laterality Modality Abdomen, Vascular Ultrasound 05/14/2014 11:4 2 AM EDT Narrative 05/14/2014 11:52 AM EDT Abdominal ?(Signed Final 05/14/2014 11:52 ? am) Patient Info ID #: ? [id number] ?: ??[birth year] (43 yrs) Name: ? ZACK LANGLEY ?Visit Date: 05/14/2014 11:39 am Performed By Performed By: ?Ashley Hassan RDMS Attending: ? Chava WEBSTER, Pablo Angel Referred By: ? JUDY HOLMAN CURTAIN ROLLER ASSEMBLER Service(s) Provided ??[facility] - Abdominal Complete Survey - [id number] ? [id number] Indications ??hepatitis c, please eval for cirrhosis and hsm ----- Liver ----- Right Lobe Length: ?? 16.6 ?? cm Echogenicity/Echotexture: ?? Increased echogenicity Gallbladder Cholelithiasis: ?No stones visualized Focal Tenderness: ?Negative sonographic Chen's sign Biliary Tract Intrahepatic Ducts: ?? Normal Extrahepatic Ducts: ?? Normal Common Duct Size: ? 2.0 ? mm -------- Pancreas -------- Head: ? Normal Tail: ? Poorly visualized due to overlying bowel Body: ? Normal ------ Spleen ------ Size (cm) ?L: ??9.8 Comment: ?Normal size and appearance Right Kidney Size (cm) ?L: ??10.8 Cortical Thickness: ?Normal Cortical Echogenicity: ?? Normal Hydronephrosis: ?No sonographic evidence Left Kidney Size (cm) ?L: ??12.3 Cortical Thickness: ?Normal Cortical Echogenicity: ?? Normal Hydronephrosis: ?No sonographic evidence ----- Aorta ----- Measurements (cm): Proximal ? AP: ?? 2.4 Comment: ?Normal in caliber where visualized --- IVC --- Normal in caliber where visualized Impression Ultrasound - Abdomen Complete - Summary 1. Mild hepatomegaly (19 cm) with increased echogenicity consistent with mild fatty infiltration. ??No hepatic mass. 2. Small 5 mm. hepatic cyst, seen on CT, but not seen on today's exam. I ??viewed the images and agree with the above interpretation. ? Pablo Larsen MD Electronically Signed Final Report ?? 05/14/2014 11:52 am Procedure Note Pablo Larsen MD - 05/14/2014 Abdominal (Signed Final 05/14/2014 11:52 am) Patient Info ID #: [id number] : [birth year] (43 yrs) Name: ZACK LANGLEY Visit Date: 05/14/2014 11:39 am Performed By Performed By: Ashley Hassan RDMS Attending: Pablo Larsen MD Referred By: JUDY HOLMAN APRN Service(s) Provided [facility] - Abdominal Complete Survey - [id number] Indications hepatitis c, please eval for cirrhosis and hsm ----- Liver ----- Right Lobe Length: 16.6 cm Echogenicity/Echotexture: Increased echogenicity Gallbladder Cholelithiasis: No stones visualized Focal Tenderness: Negative sonographic Chen's sign Biliary Tract Intrahepatic Ducts: Normal Extrahepatic Ducts: Normal Common Duct Size: 2.0 mm -------- Pancreas -------- Head: Normal Tail: Poorly visualized due to overlying bowel Body: Normal ------ Spleen ------ Size (cm) L: 9.8 Comment: Normal size and appearance Right Kidney Size (cm) L: 10.8 Cortical Thickness: Normal Cortical Echogenicity: Normal Hydronephrosis: No sonographic evidence Left Kidney Size (cm) L: 12.3 Cortical Thickness: Normal Cortical Echogenicity: Normal Hydronephrosis: No sonographic evidence ----- Aorta ----- Measurements (cm): Proximal AP: 2.4 Comment: Normal in caliber where visualized --- IVC --- Normal in caliber where visualized Impression Ultrasound - Abdomen Complete - Summary 1. Mild hepatomegaly (19 cm) with increased echogenicity consistent with mild fatty infiltration. No hepatic mass. 2. Small 5 mm. hepatic cyst, seen on CT, but not seen on today's exam. I viewed the images and agree with the above interpretation. Pablo Larsen MD Electronically Signed Final Report 05/14/2014 11:52 am Mendez Peralta MD IMG US GEN ORDERABL ES documented in this encounter Visit Diagnoses Diagnosis Chronic hepatitis C Chronic hepatitis C without mention of hepatic coma Chronic hepatitis C Chronic hepatitis C without mention of hepatic coma documented in this encounter Care Teams National Coverage Specialist Relationship Specialty Start Date End Date Ashley Calixto MD [address] [place] [address] PCP - General 12/21/11 12/10/14 documented as of this encounter
--- OUTSIDE RECORDS SUMMARY | 2023-09-07 12:23 | XMS_ITS | Encounter Summary ---
Author Organization [facility] [place] [address] Care Team Providers Care Apparel Embroidery Digitizer Name Role Phone Wendi Singh MD Primary Care Provider [phone] Reason for Visit * Reason Comments Procedure Encounter Details Date Type Department Care Team (Latest Contact Info) Description 06/15/2015 10:30 AM EDT Procedure [place] [address] Vera Clark APRN [facility] [place] [address] Chronic hepatitis C without hepatic coma Social [...] Sign Reading Time Taken Comments Blood Pressure 130/78 06/15/2015 4:13 PM EDT Pulse 90 06/15/2015 4:13 PM EDT Temperature - - Respiratory Rate - - Oxygen Saturation - - Inhaled Oxygen Concentration - - Weight 124.7 kg (275 lb) 06/15/2015 4:13 PM EDT Height 180.3 cm (5' 11) 06/15/2015 4:13 PM EDT Body Mass Index 38.35 06/15/2015 4:13 PM EDT documented in this encounter Progress Notes * Vera Clark APRN - 06/16/2015 8:13 AM EDT Procedure: Vibration Controlled Transient Elastography (VCTE) or Fibroscan [place] Protocol: Patient's identity, procedure and site were [...] with no complications. Fibroscan Results: Mean kPa: 4.9 kPa Mean IQR: (goal is <30 %) 13% Success rate: (goal is >60%) 83% Predicted fibrosis stage: F0- F1 documented in this encounter Plan of Treatment Not on file documented as of this encounter Visit Diagnoses Diagnosis Chronic hepatitis C without hepatic coma documented in this encounter Care Teams Apparel Embroidery Digitizer Relationship Specialty Start Date End Date Wendi Singh MD [address] [place] [address] PCP - General Family Medicine 12/11/14 documented as of this encounter
--- OUTSIDE RECORDS SUMMARY | 2023-09-07 12:23 | XMS_ITS | Encounter Summary ---
Author Organization [facility] [place] [address] Care Team Providers Care Pick Up Attendant Name Role Phone Wendi Singh MD Primary Care Provider [phone] Reason for Visit * Reason Comments Right Knee Pain R TKA 12/02/14 Encounter Details Date Type Department Care Team (Late st Contact Info) Description 12/11/2014 3:50 PM EDT Office [place] [address] Mihir Herrera MD [facility] [place] [address] Status post total left knee replacement Social History Tobacco Use Types Packs/Day Years [...] Sign Reading Time Taken Comments Blood Pressure 105/65 12/11/2014 4:21 PM EDT Pulse 87 12/11/2014 4:21 PM EDT Temperature - - Respiratory Rate - - Oxygen Saturation - - Inhaled Oxygen Concentration - - Weight 124.2 kg (273 lb 12. 8 oz) 12/11/2014 4:21 PM EDT Fully clothed Height 180.3 cm (5' 11) 12/11/2014 4:2 1 PM EDT Verbal Body Mass Index 38.19 12/11/2014 4:21 PM EDT documented in this encounter Progress Notes * Brock Colin PA - 12/11/2014 5:00 PM EDT Date of Injury: 12/30/2010 Case Date: 12/02/2013 Surgeon: Surgeon(s) and Role: * Mihir Herrera MD - Primary Procedure(s): @TOTAL KNEE ARTHROPLASTY MODIFIER: ATTUNE STABILIZED ROTATING PLATFORM DEPUY HPI: 44 yo male returns 1 year from his knee replacement. He has done well. There is no pain at baseline; he had increased his work around the house and yard which has resulted in some increased swelling and discomfort. ROM and stability are not limiting. He is pleased with the results of the operation. No complaints at this point. PE: Ambulatory without assist or antalgia. There is small effusion. No pain or laxity with varus and valgus stress. ROM from 0-120 today without pain or apprehension. Excellent quad strength. Calves soft and nontender without edema; peripheral pulses intact and equal. X-rays: Left total knee arthroplasty remains stable in appearance and alignment. No periprosthetic fracture or lucency is seen. No knee joint effusion. An enthesophyte arises from the superior patellar pole. Assessment: S/P Left TKA Plan: His knee looks very good. We reviewed joint precautions and infection management. Antibiotic prophylaxis was recommended. We discussed appropriate activities to prevent premature implant failure. I encouraged continued joint specific rehab exercises. We'll plan to f/u in 1 year(s) or sooner as needed. documented in this encounter Plan of Treatment Not on file documented as of this encounter Visit Diagnoses Diagnosis Status post total left knee replacement documented in this encounter Care Teams Pick Up Attendant Relationship Specialty Start Date End Date Wendi Singh MD [address] [place] [address] PCP - General Family Medicine 12/11/14 documented as of this encounter
--- OUTSIDE RECORDS SUMMARY | 2023-09-07 12:23 | XMS_ITS | Encounter Summary ---
Author Organization [facility] [place] [address] Care Team Providers Care Fiberglass Fabricator Name Role Phone Ashley Calixto MD Primary Care Provider [phone] Reason for Visit * Reason Comments Follow-up Encounter Details Date Type Department Care Team (Late st Contact Info) Description 05/14/2014 1:30 PM EDT [place] [id number] CLINIC, Rebecca Mishra APRN [facility] [place]STRO[place] [address] Chronic hepatitis C Discharge Disposition: Home Social [...] Sign Reading Time Taken Comments Blood Pressure 110/66 05/14/2014 1:18 PM EDT Pulse 112 05/14/2014 1:18 PM EDT Temperature - - Respiratory Rate - - Oxygen Saturation - - Inhaled Oxygen Concentration - - Weight 125.6 kg (277 lb) 05/14/2014 1:18 PM EDT with boots Height - - Body Mass Index 38.63 01/02/2014 10:58 AM EST documented in this encounter Progress Notes * Rebecca Borrero, ENGINE INSTALLER - 05/14/2014 1:28 PM EDT Subjective: Patient ID: Zack Langley is a 43 y.o. male. HPIProblem List: 1. Hepatitis C, genotype 2b A. Treatment - naive B. Liver Biopsy - 11/22/11 Stage 0-1/[address] Fibrosis [address] IL28B [address] CT 2. Class III Obesity 3. DM2 4. Hyperlipidemia 5. 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 Tobacco Abuse 7. Left Knee Pain 8. Hx of Substance Abuse - clean since 02/2011 9. Hx of Alcohol Abuse 10. S/P Left Knee Arthroscopy Preventative Health: 1. Colonoscopy - due at age 48 2. HAV/HBV: (-)/(-). He believes he has completed vaccine series through PCP Zack is seen today in follow up, nosymptoms referable to his liver. [place] with mild fibrosis. ammonium lactate (LAC-HYDRIN) 12 % Lotion; PRINZIDE 20-12.5 mg Tablet; SUBOXONE 2-0.5 mg Film; aspirin 81 mg Tablet, Delayed Release (E.C.); NAPROXEN SODIUM (ALEVE ORAL); METFORMIN HCL (METFORMIN ORAL); pravastatin (PRAVACHOL) 20 mg tablet Allergies Allergen Reactions ??? Isoniazid ? Rash... Family Status Relation Status Age ??? Mother 54 cancer ??? Father 56 [place] ??? Sister Alive age 61 ??? Sister Alive age 45 ??? Sister Alive age 40, psychiatric illness ??? Sister 3 fire ??? Brother Alive age 64 ??? Brother Alive age 55, HCV ??? Brother Alive age 53, CABG ??? Brother Alive age 48, ?HCV ??? Brother Alive 1 month premature ??? Brother Alive 1 month ?premature twins ??? Son Alive age 2, healthy ??? Son Alive born 09/26/12, healthy Outside Labs 09/05/11: HCV genotype 2 Viral load 266,000 Cryoglobulins negative T. Bili 0.14 AST 32 ALT 70 HgA1c 6.2 Skin Biopsy 10/28/11: ---Comment--- The findings are consistent with the clinical history of excoriation. An etiology forthe lesion is not evident in these slides. The eosinophils raise the possiblity of a hypersensitivity component. Folliculitis and PLEVA are NOT identified. Transepidermal elimination of collagen is NOT identified to favor a perforating disorder in this biopsy. Skin Biopsy 04/23/12: ---Pathologic Diagnosis--- A - Skin, upper abdomen, shave biopsy: Lentiginous compound dysplastic nevus with mild atypia, congenital features, and associated dermal fibrosis suggestive of scar, transected at a peripheral margin and at the deep margin. See Comment. B - Skin, left upper abdomen, shave biopsy: Nonspecific ulcer with impetiginized serum crust; numerous step levels reviewed. See Comment. CR-0 04/24/12 VMS 04/26/12 Verified by: Jose Martin WEBSTER, Laron Hayes Dermatopathologist (Electronic Signature) The attending pathologist whose signature appears on this report has reviewed all diagnostic slides and has edited the gross and/or microscopic portion of the report in rendering the final pathologic diagnosis. ---Comment--- A - The fibrosis could represent prior trauma or treatment at this site. Clinical correlation is recommended. If there is a previous specimen from this site, we would be happy to review it and correlate it if it is submitted. If the lesion recurs, additional sampling may be considered. Drs. Ponce and Rashaad concur with the diagnosis. B - The findings are consistent withexcoriation. An etiology for the ulcer is not apparent in the specimen. A rare eosinophil is noted and suggests the possibility of a hypersensitivity reaction. Folliculitis and PLEVA are not seen. Liver Biopsy 11/22/11: ---Pathologic Diagnosis--- Liver, percutaneous biopsy: Chronic hepatitis, consistent with hepatitisC. Mild steatohepatitis (see Note). NOTE: The biopsy shows portal/periportal, predominantly lymphocytic, inflammation, grade 2/4; lobular inflammation, grade 1/4. Portal fibrosis is stage 0-1/4. Mildmixed steatosis centering on zone 3 with scattered ballooned hepatocytes is present. Very focal inflammatory infiltrate with satellitosis pattern is associated with steatosis. Iron stain is negative;trichrome stain is evaluated for the final diagnosis. CR-[address] Scan 07/27/12: Impression No evidence of cirrhosis by imaging. 5 mm nonenhancing hypodensity in the posterior aspect of the right lobe, too small to characterize, without aggressive features. Abdominal Ultrasound 03/18/13: Impression Ultrasound - Abdomen Complete - Summary 1. Mild hepatomegaly with increased echogenicity consistent with fatty infiltration. No hepatic mass. 2. Small 5 mm. hepatic cyst, unchanged compare to prior CT. I viewed the images and agree with the above interpretation. Review of Systems Constitutional: Negative for fever, chills, diaphoresis (resolved), fatigue (energy level improved)and unexpected weight change. HENT: Negative for trouble swallowing. Respiratory: Negative for cough (resolved), shortness of breath (resolved) and wheezing. Chest infection - has had 2 rounds of Augmentin. Stopped 2 weeks ago Cardiovascular: Negative for chest pain, palpitations and leg swelling (swelling in feet resolved). Gastrointestinal: Positive for constipation. Negative for nausea, vomiting, abdominal pain, diarrhea, blood in stool and abdominal distention. Denies heartburn. BM once daily. Some constipation due Suboxone. Genitourinary: Negative for hematuria. Dark urine x 3 months. This has improved since discontinuing Isoniazid Musculoskeletal: Positive for back pain (Back pain improved now), joint swelling (left knee will swell intermittently) and arthralgias (Left knee pain). Skin: Negative for color change and rash (Isoniazid rash resolved). Open sores are healing; started to heal 4 days after stopping Isonizid Rash is healing Neurological: Negative for dizziness, tremors, syncope, weakness and light-headedness. Hematological: Does not bruise/bleed easily. Psychiatric/Behavioral: Negative for suicidal ideas, confusion, sleep disturbance (sleeping welll) and dysphoric mood. The patient is not nervous/anxious. Objective: Physical Exam Constitutional: He is oriented to person, place, and time. He appears well- developed and well-nourished. Body mass index is 40.88 kg/(m^2). HENT: Head: Normocephalic and atraumatic. Eyes: Pupils are equal, round, and reactive to light. No scleral icterus. Neck: Normal range of motion. Neck supple. No thyromegaly present. Cardiovascular: Normal rate, regular rhythm and normal heart sounds. No murmur heard. Pulmonary/Chest: Effort normal. He has wheezes (inspir and expir wheeze right base). He has no rales. Abdominal: Soft. Bowel sounds are normal. He exhibits no distension and no mass. There is no tenderness. There is no guarding. Exam limited due to body habitus Musculoskeletal: He exhibits edema (trace pitting edema BLE). Lymphadenopathy: He has no cervical adenopathy. Neurological: He is alert and oriented to person, place, and time. No asterixis Skin: Skin is warm and dry. No rash (open sores, healing) noted. There is erythema (Palmar erythema. no spider angiomata on chest). Psychiatric: He has a normal mood and affect. His behavior is normal. Assessment and Plan: Mr. Langley is a pleasant 43 year old white male seen in follow-up for hepatitis C, genotype 2b, stage 0-1 fibrosis. He has risk factors for hepatitis C dating back 20-25 years. He has been clean since February 2011 at which time he was started on suboxone. 1. Hepatitis C, genotype 2b, stage 0-1. Would require 12 weeks of sofosbuvir and ribavirin treatment, however we know that his insurance will not cover the medications based on low fibrosis stage. He could consider enrolling into a drug treatment trial in May and he is interested in hearing more about this. Will give his name to our research RN. 3. Class III obesity. This is significant risk factor for COELHO. He was noted to have steatosis on ultrasound in February which increases my concern that his liver disease is progressing due to combination of HCV and OCELHO. 4. Hepatitis A and B vaccine series. He tells me that he completed vaccine series through PCP. He will consider the clinical trial if not treated will return to clinic in one year. Recent Results (from the past 24 hour(s)) COMPREHENSIVE METABOLIC PANEL (NON-FASTING) Result Value Ref Range Glucose Lvl 89 60 - 199 mg/dL BUN 13 10 - 20 mg/dL Creatinine 0.77 (*) 0.80 - 1.50 mg/dL Sodium 138 135 - 145 mmol/L Potassium 4.5 3.5 - 5.0 mmol/L Chloride 97 (*) 98 - 107 mmol/L CO2 25 22 - 31 mmol/L Anion Gap 16 (*) 5 - 15 mmol/L Calcium 9.4 8.5 - 10.5 mg/dL Total Protein 8.0 6.1 - 8.0 gm/dL Albumin 4.2 3.2 - 5.2 gm/dL AST 20 0 - 39 unit/L ALT 27 0 - 55 unit/L Alk Phos 79 40 - 120 unit/L Total Bilirubin 0.2 0.2 - 1.3 mg/dL Bili, Direct 0.1 0.0 - 0.3 mg/dL Estimated GFR >60 >=60 HEMOGRAM Result Value Ref Range WBC 12.6 (*) 4.0 - 10.0 x10(3)/mcL RBC 4.88 4.63 - 6.08 x10(6)/mcL Hemoglobin 14.3 13.7 - 17.5 gm/dL Hematocrit 41.3 40.0 - 51.0 % MCV 84.6 79.0 - 92.0 fL MCH 29.3 25.6 - 32.2 pg MCHC 34.6 32.0 - 36.5 gm/dL Platelets 285 145 - 370 x10(3)/mcL RDWSD 39.7 35.0 - 46.0 fL RDWCV 13.0 10.9 - 14.4 % MPV 11.4 9.0 - 12.0 fL DIFFERENTIAL, AUTOMATED Result Value Ref Range Neutrophils % 54.4 Neutr Abs (ANC) 6.84 (*) 1.50 - 6.30 x10(3)/mcL Lymphocytes % 36.8 Lymphocytes Abs 4.6 (*) 1.0 - 3.6 x10(3)/mcL Monocytes % 5.0 Monocyte Abs 0.6 0.2 - 1.0 x10(3)/mcL Eosinophils % 3.2 Eosinophils Abs 0.4 0.0 - 0.5 x10(3)/mcL Basophils % 0.4 Basophils Abs 0.0 0.0 - 0.2 x10(3)/mcL Immature Gran % 0.20 Alexa Gran Abs 0.02 0.00 - 0.05 x10(3)/mcL SCAN, PERIPHERAL BLOOD Result Value Ref Range Plat Estimate Normal RBC Morphology Normal NUCLEATED RED BLOOD CELLS Result Value Ref Range nRBC % Auto 0.0 nRBC Abs Auto 0.000 0.000 - 0.012 x10(3)/mcL documented in this encounter Plan of Treatment Not on file documented as of this encounter Visit Diagnoses Diagnosis Chronic hepatitis C Chronic hepatitis C without mention of hepatic coma documented in this encounter Care Teams Fiberglass Fabricator Relationship Specialty Start Date End Date Ashley Calixto MD [address] [place] [address] PCP - General 12/21/11 12/10/14 documented as of this encounter
--- OUTSIDE RECORDS SUMMARY | 2023-09-07 12:23 | XMS_ITS | Encounter Summary ---
Author Organization [facility] Address [facility] [place] [address] Care Team Providers Care Shoe Cleaner Name Role Phone Ashley Calixto MD Primary Care Provider [phone] Encounter Details Date Type Department Care Team (Latest Contact Info) Description 05/14/2014 11:58 AM EDT - 05/14/2014 11:59 PM EDT [place] [address] Subha Ross MD [facility] [place] [address] Chronic hepatitis C Discharge Disposition: Home Social [...] as of this encounter Plan of Treatment Pending Results Name Type Priority Associated Diagnoses Date /Time Hepatitis C RNA, quantitative, PCR Lab Routine Chronic hepatitis C 05/14/2014 12:03 PM EDT Scheduled Orders Name Type Priority Associated Diagnoses Orde r Schedule Hepatitis C RNA, quantitative, PCR Lab Routine Chronic hepatitis C 1 Occurrences starting 05/14/2014 until 05/14/2014 documented as of this encounter Visit Diagnoses Diagnosis Chronic hepatitis C Chronic hepatitis C without mention of hepatic coma documented in this encounter Care Teams Shoe Cleaner Relationship Specialty Start Date End Date Ashley Calixto MD [address] [place] [address] PCP - General 12/21/11 12/10/14 documented as of this encounter
--- OUTSIDE RECORDS SUMMARY | 2023-09-07 12:23 | XMS_ITS | Encounter Summary ---
Author Organization [facility] Address [facility] [place] [address] Care Team Providers Care R And D Lab Technician Name Role Phone Wendi Singh MD Primary Care Provider [phone] Encounter Details Date Type Department Care Team (Late st Contact Info) Description 10/08/2018 [place] [address] Nahomi Arechiga MD [facility] [place] [address] Status post total left knee replacement Social [...] Type Associated Problems Recent Progress Patient-Stated? Author [facility] Medication Compliance and Understanding Patient Facing Action Plan Yaquelin Lau, [facility] Note: SVR12 through treatment with Mavyret. documented as of this encounter Results * XR Knee 1-2 [...] number below. Electronically signed by: Maryana Abraham [facility] ([phone]),at 10/18/2018 10:38 AM Nahomi Arechiga MD IMG DX ORDERABLES documented in this encounter Visit Diagnoses Diagnosis Status post total left knee replacement Status post total left knee replacement documented in this encounter Care Teams R And D Lab Technician Relationship Specialty Start Date End Date Wendi Singh MD [address] [place] [id number] PCP - General Family Medicine 12/11/14 documented as of this encounter
--- OUTSIDE RECORDS SUMMARY | 2023-09-07 12:23 | XMS_ITS | Encounter Summary ---
[place] [address] Care Team Providers Care Tire Recapping Machine Operator Name Role Phone Wendi Singh MD Primary Care Provider [phone] Encounter Details Date Type Department Care Team (Late st Contact Info) Description 04/12/2018 Abstract [place] [address] Toya Gongora, RN Social History Tobacco Use Types Packs/Day Years [...] Type Associated Problems Recent Progress Patient-Stated? Author [facility] Medication Compliance and Understanding Patient Facing Action Plan No Yaquelin Hutton, [facility] Note: SVR12 through treatment with Mavyret. documented as of this encounter Visit Diagnoses Not on filedocumented in this encounter Care Teams Tire Recapping Machine Operator Relationship Specialty Start Date End Date Wendi Singh MD [address] [place] [address] PCP - General Family Medicine 12/11/14 documented as of this encounter
--- OUTSIDE RECORDS SUMMARY | 2023-09-07 12:23 | XMS_ITS | Encounter Summary ---
[place] [address] Care Team Providers Care Dairy Laboratory Technician Name Role Phone Wendi Singh MD Primary Care Provider Reason for Visit * Reason Comments Patient Education Encounter Details Date Type Department Care Team (Late st Contact Info) Description 02/21/2018 Specialty [place] [id number] Sujey Johnson Del Social History Tobacco Use Types Packs/Day Years [...] on file documented as of this encounter Progress Notes * Sujey Johnson RPH - 02/21/2018 10:39 AM EST Specialty Pharmacy Consultation; Sujey Johnson RPH Comprehensive Medication Management (CMM) Zack Langley Diagnosis: HCV Therapy Start Date: 02/02/2018 Mr. Zack Langley is a 47 y.o. (1970) male who was contacted in regard to specialty medication. Spoke with patient regarding Mavyret. A review of the medication therapy was performed. The medication was Refilled as scheduled, and all medication related questions and concerns were addressed. The specialty pharmacy staff will follow up with the patient 5-7 days before treatment is complete. Is the patient willing to proceed with the Clinical Assessment? Yes Summary and Recommendations: Zack was contacted for 18 day follow-up regarding initiation of treatment with Mavyret. He reportsthat he takes the medication daily at 6:30am with toast. He reports he is tolerating the medicationwell thus far although he does note his mouth is still somewhat dry, but he has increasing his water intake to compensate for that. Zack does not report any problems with adherence. He seems pleasedwith the treatment at this point. We will be calling him again for an end of therapy assessment. Norecommendations at this time. Clinic Follow-up needed: Lab work 4 weeks after beginning treatment Allergies and Drug intolerance: Allergies Allergen Reactions ??? Isoniazid ? Rash... Special Dietary Requirements: no There is no height or weight on file to calculate BMI. Medication Reconciliation Discrepancies (compared to [facility] med list) - None Medication Adherence Patient reported X missed doses in the last month: 0 Any gaps in refill history greater than 2 weeks in the last 3 months: no Demonstrates understanding of importance of adherence: yes Informant: patient Reliability of informant: reliable Provider-estimated medication adherence level: 90-100% Reasons for non-adherence: no problems identified Adherence tools used: directed education Support network for adherence: healthcare provider Confirmed plan for next specialty medication refill: delivery by pharmacy Refills needed for supportive medications: not needed Medication List: Current Outpatient Medications Medication Sig Note Dispense Refill ??? glecaprevir-pibrentasvir (MAVYRET) 100-40 mg Tablet Take 3 tablets by mouth daily. 84 tablet 1 ??? glimepiride (AMARYL) 4 mg Tablet Take 4 mg by mouth every morning (before breakfast). 01/26/2018: Patient not taking. ??? SUBOXONE 4-1 mg Film DISSOLVE 1 FILM UNDER THE TONGUE ONCE A DAY 12/25/2015: Received from: External Pharmacy 0 ??? lisinopril (PRINIVIL;ZESTRIL) 20 mg Tablet 20 mg daily. 12/11/2014: Received from: External Pharmacy 0 ??? metFORMIN (GLUCOPHAGE-XR) 500 mg Tablet Sustained Release 24 hr 2,000 mg daily. 12/11/2014: Received from: External Pharmacy 0 ??? PRINZIDE 20-12.5 mg Tablet 1 tablet daily. 01/26/2018: Patient not taking. ??? SUBOXONE 2-0.5 mg Film 4 mg daily. 01/26/2018: Patient not taking. ??? aspirin 81 mg Tablet, Delayed Release (E.C.) 1 tablet daily. 04/03/2014: Received from: External Pharmacy Received Si ??? pravastatin (PRAVACHOL) 20 mg tablet Take 20 mg by mouth daily. 01/26/2018: Patient will decrease to 1/2 tablet while on Mavyret. No current facility-administered medications for this visit. Most Recent Vitals: Ht Readings from Last 1 Encounters: 01/12/18 180.3 cm (5' 11) Wt Readings from Last 3 Encounters: 01/12/18 129.7 kg (286 lb) 08/19/16 (!) 133.4 kg (294 lb) 12/25/15 (!) 124.7 kg (275 lb) Temp Readings from Last 3 Encounters: 01/02/14 37.1 ??C (98.7 ??F) 12/05/13 37.1 ??C (98.8 ??F) (Oral) 11/27/12 36.5 ??C (97.7 ??F) BP Readings from Last 3 Encounters: 01/12/18 113/78 08/19/16 120/73 12/25/15 130/73 Pulse Readings from Last 3 Encounters: 01/12/18 85 08/19/16 82 12/25/15 88 Pertinent Lab values: Lab Results Component Value Date NA 137 01/12/2018 K 4.4 01/12/2018 CL 98 01/12/2018 CO2 22 01/12/2018 BUN 10 01/12/2018 CREATININE 0.75 (L) 01/12/2018 GLUCOSE 116 01/12/2018 CALCIUM 9.2 01/12/2018 Lab Results Component Value Date ALT 32 01/12/2018 AST 22 01/12/2018 ALKPHOS 68 01/12/2018 BILITOT <0.2 (L) 01/12/2018 BILIDIR 0.1 08/19/2016 ALBUMIN 4.1 01/12/2018 PROT 7.8 01/12/2018 Lab Results Component Value Date WBC 8.8 01/12/2018 HGB 14.1 01/12/2018 HCT 41.3 01/12/2018 MCV 86.4 01/12/2018 PLATELET 220 01/12/2018 Lab Results Component Value Date HA1C 6.7 (H) 12/04/2013 There is no immunization history on file for this patient. Assessment and Recommendations: Title Type of Medication Management: chronic disease management, targeted medication review Referred By: provider Recipient: beneficiary Provider: plan sponsor pharmacist Visit Type: [facility] [place] Method of Contact: by telephone Cognitive Ability: good Cognitive Impairment Status Verified this Year: no Patient Counseling Counseled the patient on the following: medication safety precautions education provided, doses and administration discussed, safe handling, storage, and disposal discussed, possible adverse effects and management discussed, possible drug and prescription drug interactions discussed, possible drug and OTC drug and food interactions discussed, lab monitoring and follow-up discussed, cost of medications and cost implications discussed, adherence and missed doses discussed, pharmacy contact information discussed, health goals discussed, over the counter products discussed, preventative care discussed, reminder to refill or fruit picker medication discussed, self-monitoring discussed, start medication discussed Drug Medication Management Summary Topics discussed: medication safety precautions education provided, doses and administration discussed, safe handling, storage, and disposal discussed, possible adverse effects and management discussed, possible drug and prescription drug interactions discussed, possible drug and OTC drug and food interactions discussed, lab monitoring and follow-up discussed, cost of medications and cost implications discussed, adherence and missed doses discussed, pharmacy contact information discussed, health goals discussed, over the counter products discussed, preventative care discussed, reminder to refill or fruit picker medication discussed, self-monitoring discussed, start medication discussed Time spent: 16-30 min Treatment Outcomes No data found. Reviewed in detail with patient: Dose appropriateness based on recommended standard dosing Current medication list including OTC medications Medication and disease problems Allergies Comorbid conditions/ Problem List Past adverse events if any Special needs of the patient including physical and cognitive limitations Goals of therapy and management strategies Warnings, precautions, and contraindications Side effects Drug-drug and drug-food interactions Administration instructions including dose, frequency and method Handling, storage, and disposal of the medication Relevant lab data Patient verbalizes understanding and is able to read-back instructions on self-administration/injection, proper storage, drug stability, importance of adherence and management strategies, side effectavoidance and mitigation strategies, and interruptions in therapy: Yes Physical Assessment: Functional limitations identified: no Cognitive limitations identified: no Concern regarding orientation/memory: no Concern with reasoning/judgement: no Is patient a fall risk: no Other needed information: no Social Assessment: Does the patient have a primary housekeeper caregiver? no Patient has emergency contact on file: Yes Does patient need referral to director of social media marketing: No Does patient need referral to advocacy group: No Physical and Home Health Assessment: Is the patient able to store their medication as directed? Yes Is the patient in a safe home environment? Yes Do you have a support network? Yes Reviewed potential home safety hazards: Yes Economic Assessment: Patient is agreeable to medication copay: Yes Copay Amount: $ 0.00 Day Supply: 28 Date Needed: 03/02/2017 Copay assistance required: no Patient's Problems/Needs: Treatment of Hepatitis C- Zack will need to be adherent to the medication regimen and lab schedule. ? Therapy Assessment: Current Medication Dosing/Route/Frequency: Mavyret 3 tablets by mouth once daily Appropriate Therapy: Yes Genotype: 2 ?Treatment Naive/Experienced:??naive ?Fibrosis Score:??F0 fibroscan from 01/12/18 ?HX of liver transplant:??no ?HBV Coinfection:??no ?HIV Coinfection:??no?? Lab schedule reviewed: Yes Upcoming Lab Reminder Given: Yes Personal Hygiene Device Disposal Reminder Given: Yes Side Effects From Medication: no Side Effect Mitigation Strategies Discussed: Yes Proper Hydration: Yes Missed Doses: no Barriers to Adherence: no Adherence Tools Used by Patient: no Number of Days Supply Remaining from Prior Fill: 7 Recent Changes to Supplemental Medications: no Effectiveness: yes - TBD Most Recent HCV Viral Load: TBD Undetectable RVR4 Labs: TBD Educational information or adherence tools provided? Yes HCV therapy adherence: Yes HCV treatment response: Yes Patient experienced change in condition that affects treatment: no Patient's goals: Patient's specific desired goal:??SVR12 Measured by:??HepC viral load 12 weeks post-treatment Time-frame to meet goal:??8 weeks of treatment + 12 weeks post-treatment to assess?? Is the patient on track to achieve goals of therapy? Yes Expected Outcome: SVR12 Plan of Care Reviewed and Approved by Patient: Yes Did Care Plan Change? No Interventions (if applicable): No Monitoring requirements for prescribed medication: Monitor HepC viral load at week 4, end of treatment, 3 and 6 months post-treatment Monitor adherence, tolerability, and efficacy Additional care/services needed: no Pharmacist Follow-up needed: Yes Informed patient of specialty pharmacy services: Yes -Patient received welcome packet: Yes Date received: 02/01/2018 Delivery Method: Mail -Patient received and returned Rights & Responsibiliites: Yes Date received: 02/01/2018, confirmed receipt 02/07 Delivery Method: Mail -Patient is aware a licensed pharmacist is available 24 hours a day, 7 days a week to discuss medication-related questions or concerns: Yes -Patient verbalizes understanding of the common side effect profile of their medication. The patient is able to call 911 or seek urgent care if signs/symptoms of allergy or harmful adverse reactions occur: Yes Patient Satisfaction with Therapy: yes - He is satisfied with therapy thus far Patient understands no changes to current drug regimen were made at the appointment and that [facility] (summary located at top of note) for provider review and follow up. Sujey Johnson RPH 02/21/18 11:24 AM documented in this encounter Plan of Treatment Not on file documented as of this encounter Goals Goal Patient Goal Type Associated Problems Recent Progress Patient-Stated? Author [facility] Medication Compliance and Understanding Patient Facing Action Plan No Yaquelin Hutton [facility] Note: SVR12 through treatment with Mavyret. documented as of this encounter Visit Diagnoses Not on filedocumented in this encounter Care Teams Dairy Laboratory Technician Relationship Specialty Start Date End Date Wendi Singh MD [address] [place] [address] PCP - General Family Medicine 12/11/14 documented as of this encounter
--- OUTSIDE RECORDS SUMMARY | 2023-09-07 12:23 | XMS_ITS | Encounter Summary ---
Author Organization [facility] [place] [address] Care Team Providers Care Power System Dispatcher Name Role Phone Wendi Singh MD Primary Care Provider [phone] Encounter Details Date Type Department Care Team (Late st Contact Info) Description 03/07/2018 External [place] [address] Vera Clark POTABLE WATER TREATMENT OPERATOR [facility] [place] [address] Social History Tobacco Use Types Packs/Day Years [...] Type Associated Problems Recent Progress Patient-Stated? Author [facility] Medication Compliance and Understanding Patient Facing Action Plan Yaquelin Lau, [facility] Note: SVR12 through treatment with Mavyret. documented as of this encounter Procedures Procedure Name Priority Date/Time Associated Diagnosis Comments EXTERNAL LAB GI RESULTS PANEL Routine 03/04/2018 documented in this encounter Results * GI External Results (03/04/2018) HCV Viral Load <15 Comment:but detected Historical Provider POINT OF CARE JUAN T ORDERABLES documented in this encounter Visit Diagnoses Not on filedocumented in this encounter Care Teams Power System Dispatcher Relationship Specialty Start Date End Date Wendi Singh MD [address] [place] [address] PCP - General Family Medicine 12/11/14 documented as of this encounter
--- OUTSIDE RECORDS SUMMARY | 2023-09-07 12:23 | XMS_ITS | Encounter Summary ---
Author Organization [facility] [place] [address] Care Team Providers Care Stitcher Special Machine Name Role Phone Wendi Singh MD Primary Care Provider [phone] Encounter Details Date Type Department Care Team (Late st Contact Info) Description 04/11/2018 External Results [place]astro[place] [address] Vera Clark CLAIMS SPECIALIST [facility] [place] [address] Social History Tobacco Use Types Packs/Day Years [...] Type Associated Problems Recent Progress Patient-Stated? Author [facility] Medication Compliance and Understanding Patient Facing Action Plan Yaquelin Lau, [facility] Note: SVR12 through treatment with Mavyret. documented as of this encounter Procedures Procedure Name Priority Date/Time Associated Diagnosis Comments EXTERNAL LAB CBC CMP THYROID RESULTS PANEL Routine 04/06/2018 documented in this encounter Results * CBC / CMP / Thyroid External Results (04/06/2018) Sodium 137 Potassium 4.4 Chloride 102 CO2 26 BUN 10 Creatinine 0.86 Estimated GFR >60 Glucose Lvl 147 Calcium 8.9 Total Protein 7.8 Albumin 3.5 Total Bilirubin 0.2 Alk Phos 82 AST 14 ALT 19 Historical Provider POINT OF CARE JUAN T ORDERABLES documented in this encounter Visit Diagnoses Not on filedocumented in this encounter Care Teams Stitcher Special Machine Relationship Specialty Start Date End Date Wendi Singh MD [address] [place] [address] PCP - General Family Medicine 12/11/14 documented as of this encounter
--- OUTSIDE RECORDS SUMMARY | 2023-09-07 12:23 | XMS_ITS | Encounter Summary ---
Author Organization [facility] [place] [address] Care Team Providers Care Echo Vascular Tech Name Role Phone Wendi Singh MD Primary Care Provider Encounter Details Date Type Department Care Team (Late st Contact Info) Description 04/12/2018 External Results [place] [address] Vera Clark TECHNICAL PLANNER [facility] [place] [address] Social History Tobacco Use Types Packs/Day Years [...] Type Associated Problems Recent Progress Patient-Stated? Author [facility] Medication Compliance and Understanding Patient Facing Action Plan Yaquelin Lau, [facility] Note: SVR12 through treatment with Mavyret. documented as of this encounter Procedures Procedure Name Priority Date/Time Associated Diagnosis Comments EXTERNAL LAB GI RESULTS PANEL Routine 04/06/2018 documented in this encounter Results * GI External Results (04/06/2018) HCV Viral Load <15 Comment:undetected Historical Provider POINT OF CARE JUAN T ORDERABLES documented in this encounter Visit Diagnoses Not on filedocumented in this encounter Care Teams Echo Vascular Tech Relationship Specialty Start Date End Date Wendi Singh MD [address] [place] [address] PCP - General Family Medicine 12/11/14 documented as of this encounter
--- OUTSIDE RECORDS SUMMARY | 2023-09-07 12:23 | XMS_ITS | Encounter Summary ---
Author Organization [facility] [place] [address] Care Team Providers Care Breakfast Supervisor Name Role Phone Wendi Singh MD Primary Care Provider [phone] Reason for Visit * Reason Onset Date Comments Medication Refill 01/22/2018 Encounter Details Date Type Department Care Team (Late st Contact Info) Description 01/22/2018 Refill [place] [address] [facility] [place] [address] Chronic hepatitis C without hepatic coma Social [...] encounter Miscellaneous Notes * Telephone Encounter - Toya Gongora RN - 01/22/2018 8:27 AM EST 8 weeks of Mavyret. ??He is GT 2, non-cirrhotic, treatment naive. He is getting updated blood work today. He needs to decrease his pravastatin to 10mg while on treatment. documented in this encounter Plan of Treatment Not on file documented as of this encounter Visit Diagnoses Diagnosis Chronic hepatitis C without hepatic coma documented in this encounter Care Teams Breakfast Supervisor Relationship Specialty Start Date End Date Wendi Singh MD [address] [place] [address] PCP - General Family Medicine 12/11/14 documented as of this encounter
--- OUTSIDE RECORDS SUMMARY | 2023-09-07 12:23 | XMS_ITS | Encounter Summary ---
[place] [address] Care Team Providers Care Clam Grower Name Role Phone Ashley Calixto MD Primary Care Provider [phone] Encounter Details Date Type Department Care Team (Late st Contact Info) Description 02/10/2014 Telephone [place] [phone] Hoda Asher Social History Tobacco Use Types Packs/Day Years [...] encounter Miscellaneous Notes * Telephone Encounter - Hoda Blunt - 02/10/2014 3:41 PM EST letter sent 12/26/2013 03:25PM GERARD waiting on US/Lab orders 01/17/2014 10:26AM GERARD left message with family member 01/24/2014 04:15PM GERARD final letter 02/06/2014 02:48PM G[facility]u with Marcia Whitman w/labs and US documented in this encounter Plan of Treatment Not on file documented as of this encounter Visit Diagnoses Not on filedocumented in this encounter Care Teams Clam Grower Relationship Specialty Start Date End Date Ashley Calixto MD [address] [facility] [address] [place] [address] PCP - General 12/21/11 12/10/14 documented as of this encounter
--- OUTSIDE RECORDS SUMMARY | 2023-09-07 12:23 | XMS_ITS | Encounter Summary ---
[place] [address] Care Team Providers Care Hot Stick Worker Name Role Phone Wendi Singh MD Primary Care Provider [phone] Encounter Details Date Type Department Care Team (Latest Contact Info) Description 06/15/2015 11:00 AM EDT Laboratory Appointment Lab [address] [place] [address] Chronic hepatitis C without hepatic coma Social [...] Procedure Name Priority Date/Time Associated Diagnosis Comments LIVER FIBROSIS PANEL Routine 06/15/2015 11:35 AM EDT Chronic hepatitis C without hepatic coma HEMOGRAM Routine 06/15/2015 11:35 AM EDT Chronic hepatitis C without hepatic coma DIFFERENTIAL, AUTOMATED Routine 06/15/2015 11:35 AM EDT Chronic hepatitis C without hepatic coma HEPATITIS A ANTIBODY, TOTAL Routine 06/15/2015 11:35 AM EDT Chronic hepatitis C without hepatic coma HEPATITIS C RNA, QUANTITATIVE, PCR Routine 06/15/2015 11:35 AM EDT Chronic hepatitis C without hepatic coma HEPATITIS B SURFACE ANTIBODY Routine 06/15/2015 11:35 AM EDT Chronic hepatitis C without hepatic coma HEPATITIS B SURFACE ANTIGEN Routine 06/15/2015 11:35 AM EDT Chronic hepatitis C without hepatic coma PROTHROMBIN TIME Routine 06/15/2015 11:3 5 AM EDT Chronic hepatitis C without hepatic coma CBC (WITH DIFF) Routine 06/15/2015 11:35 AM EDT Chronic hepatitis C without hepatic coma COMPREHENSIVE METABOLIC PANEL (NON-FASTING) Routine 06/15/2015 11:35 AM EDT Chronic hepatitis C without hepatic coma documented in this encounter Results * (ABNORMAL) Differential, Automated (06/15/2015 11:35 AM EDT) Neutrophils % 44.1 % [facility] Neutr Abs (ANC) 4.13 1.50 - 6.30 x10(3)/mc L [facility] Lymphocytes % 44.3 % [facility] Lymphocytes Abs 4.2(H) 1.0 - 3.6 x10(3)/mc L [facility] Monocytes % 6.6 % [facility] Monocyte Abs 0.6 0.2 - 1.0 x10(3)/mc L [facility] Eosinophils % 4.3 % [facility] Eosinophils Abs 0.4 0.0 - 0.5 x10(3)/mc L [facility] Basophils % 0.6 % [facility] Basophils Abs 0.1 0.0 - 0.2 x10(3)/mc L [facility] Immature Gran % 0.10 % [facility] Comment: Immature granulocytes(IG's)percentage and absolute count will include metamyelocytes, myelocytes, and promyelocytes. Blood smears from CBCs yielding IG's will be scanned manually for concordance. If this scan disagrees with the automated IG or if promyelocytes are noted, a manual differential will be performed. Alexa Gran Abs 0.01 0.00 - 0.05 x10(3)/mc L [facility] Blood specimen (specimen) 06/15/2015 11:35 AM EDT 06/15/2015 11:46 AM EDT Narrative Resulting Agency Comment Spec In Lab Natasha Garcia MD HEMATOLOGY ORDERABLE S [facility] [place] [address] * Hemogram (06/15/2015 11:35 AM EDT) WBC 9.4 4.0 - 10.0 x10(3)/[facility] RBC 4.98 4.63 - 6.08 x10(6)/[facility] Hemoglobin 14.7 13.7 - 17.5 gm/dL [facility] Hematocrit 41.9 40.0 - 51.0 % [facility] MCV 84.1 79.0 - 92.0 fL [facility] MCH 29.5 25.6 - 32.2 pg [facility] MCHC 35.1 32.0 - 36.5 gm/dL [facility] Platelets 227 145 - 370 x10(3)/[facility] RDWSD 38.9 35.0 - 46.0 [facility] RDWCV 12.9 10.9 - 14.4 % [facility] MPV 11.9 9.0 - 12.0 fL [facility] Blood specimen (specimen) 06/15/2015 11:35 AM EDT 06/15/2015 11:46 AM EDT Narrative Resulting Agency Comment Spec In Lab Natasha Garcia MD HEMATOLOGY ORDERABLE S [facility] [place] [address] * (ABNORMAL) Liver Fibrosis Panel (06/15/2015 11:35 AM EDT) Liver Fibrosis Panel FLEXITEST 3(A) [facility] Comment: FLEXITEST 3 TESTS RESULTS--------UNITS--REF. RANGE--- Fibrosis Score ? 0.07 Fibrosis Stage ? F0 Fibrosis Interpretation ? SEE NOTE no fibrosis Fibro Test Score ?? Metavir Score 0.00-0.21 ?F0 ? no fibrosis 0.22-0.27 ?F0-F1 0.28-0.31 ?F1 ? minimal fibrosis 0.32-0.48 ?F1-F2 0.49-0.58 ?F2 ? moderate fibrosis 0.59-0.72 ?F3 ? advanced fibrosis 0.73-0.74 ?F3-F4 0.75-1.00 ?F4 ? severe fibrosis Necroinflammat Act Score ? 0.16 Necroinflammat Act Grade ? A0 Necroinflammat Interp ? SEE NOTE no activity ActiTest Score ? Metavir Score 0.00-0.17 ?A0 ? no activity 0.18-0.29 ?A0-A1 0.30-0.36 ?A1 ? minimal activity 0.37-0.52 ?A1-A2 0.53-0.60 ?A2 ? significant activity 0.61-0.62 ?A2-A3 0.63-1.00 ?A3 ? severe activity Lqkjx-4-Tkspirjbjabos ? 144 ?mg/dL ??106-279 Haptoglobin ? 225 H ?mg/dL ??43-212 Apolipoprotein A1 ? 134 ?mg/dL ??94-176 Total Bilirubin ? 0.3 ?mg/dL ??0.2-1.2 GGT ?27 ?U/L ??3- 95 ALT ?40 ?U/L ??9- 46 Reference ID ?[id number] Footnote ?SEE NOTE The reliability of results is dependent on compliance with the preanalytical and analytical conditions recommended by [employer]. The tests have to be deferred for: acute hemolysis, acute hepatitis, acute inflammation, extra hepatic cholestasis. The advice of a specialist should be sought for interpretation in chronic hemolysis and Gilbert's syndrome. The test interpretation is not validated in liver transplant patients. Isolated extreme values of one of the components should lead to caution in interpreting the results. In case of discordance between a biopsy result and a test, it is recommended to seek the advice of a specialist. The causes of these discordances could be due to a flaw of the test or to a flaw in the biopsy: i.e. a liver biopsy has a 33% variability rate for one fibrosis stage. FibroTest is interpretable for chronic hepatitis B and C, alcoholic and non alcoholic steatosis. ActiTest is interpretable for chronic hepatitis B and C. The performance characteristics have been determined by [email or web address], [place]. It has not been cleared or approved by the U.S. Food and Drug Administration. Performance characteristics refer to the analytical performance of the test. Enkia, the associated logo, Empiribox and all associated [employer] lopez are the registered trademarks of [employer]. All third libertarian lopez - (R) and (TM) - are the property of their respective owners. (C) [id number] [employer]. All rights reserved. Test performed by: ? [email or web address] ? [address] ? [place] [address] ? Phone: ??[phone] Director: ??Yordan Ocampo M.D. Test Reported by [email or web address], [address] [place] [address] Jacob Michelle M.D., Ph.D., Director of Laboratories , [place] [id number] Blood specimen (specimen) 06/15/2015 11:35 AM EDT 06/15/2015 1:37 PM EDT Narrative Resulting Agency Comment Spec In Lab Natasha Garcia MD CHEMISTRY ORDERABLES Performing Organization Address [facility] Co de Phone Number [facility] [place] [address] * Hepatitis B Surface Antigen (06/15/2015 11:35 AM EDT) HepB Surface Ag Negative Negative [facility] Blood specimen (specimen) 06/15/2015 11:35 AM EDT 06/15/2015 11:46 AM EDT Narrative Resulting Agency Comment Spec In Lab Natasha Garcia MD CHEMISTRY ORDERABLES Performing Organization Address [facility] de Phone Number [facility] [place] [address] * Hepatitis B Surface Antibody (06/15/2015 11:35 AM EDT) HepB Surface Ab Positive [facility] Comment: Expected Results: Vaccinated: Positive Unvaccinated: Negative Please note: A positive result for this assay is consistent with a concentration of anti-HBs antibodies >10mIU/ml, which indicates that anti-HBs antibodies have been detected at levels consistent with protective immunity against HBV infection. Blood specimen (specimen) 06/15/2015 11:35 AM EDT 06/15/2015 11:46 AM EDT Narrative Resulting Agency Comment Spec In Lab Natasha Garcia MD IMMUNOLOGY ORDERABLE S Performing Organization Address [facility] Co de Phone Number [facility] [place] [address] * (ABNORMAL) Hepatitis A Antibody, Total (06/15/2015 11:35 AM EDT) Hepatitis A Ab Total Positive(A ) Negative [facility] Blood specimen (specimen) 06/15/2015 11:35 AM EDT 06/15/2015 11:46 AM EDT Narrative Resulting Agency Comment Spec In Lab Natasha Garcia MD IMMUNOLOGY ORDERABLE S Performing Organization Address City/[facility]/ZIP Co de Phone Number [facility] [place] [address] * Hepatitis C RNA, quantitative, PCR (06/15/2015 11:35 AM EDT) HCV Viral Load 910,856 IU/mL [facility] HCV Viral Load Result: [id number] IU/mL Indication for Study: Hepatitis C Infection Analysis: A quantitiative real time reverse transcriptase PCR assay was performed on extracted viral RNA for the purpose of quantification. Sample: plasma (1 mL minimum volume) Method: Devonte Jose TaqMAN 48 HCV Linear Range: 15 IU/mL - 100,000,000IU/mL (95% CI) Note: This assay is being performed in the [facility]. Bertin Beach, Ph.D. Director, Molecular Pathology [facility] Comment: [VERIFIED DATE]06.18.15 Verified By:Mary Murphy (Electronic Signature) Blood specimen (specimen) 06/15/2015 11:35 AM EDT 06/16/2015 8:51 AM EDT Narrative Resulting Agency Comment Spec In Lab Natasha Garcia MD IMMUNOLOGY ORDERABLE S [facility] [address] * Prothrombin Time (06/15/2015 11:35 AM EDT) PT 12.6 12.0 - 15.0 sec [facility] Comment: An INR <2.0 indicates adequate procoagulant activity for hemostasis in most patients without underlying bleeding disorders, though the INR may not adequately reflect hemostatic capacity in patients with liver disease and synthetic impairment. The recommended target INR range for therapeutic anticoagulation is 2.0 ? 3.0 for most applications, though lower and higher ranges may be appropriate depending on clinical circumstances. INR 0.9 0.9 - 1.1 [facility] Blood specimen (specimen) 06/15/2015 11:35 AM EDT 06/15/2015 11:46 AM EDT Narrative Resulting Agency Comment Spec In Lab Natasha Garcia MD HEMATOLOGY ORDERABLE S [facility] [address] * (ABNORMAL) Comprehensive metabolic panel (non-fasting) (06/15/2015 11:35 AM EDT) Glucose Lvl 97 65 - 199 mg/dL [facility] Comment:Diabetes: >=200 mg/d L plus symptoms BUN 8(L) 10 - 20 mg/dL [facility] Creatinine 0.78(L) 0.80 - 1.50 mg/dL [facility] Comment: Please note that the pediatric reference intervals supplied above were not validated at [facility]. Results from pediatric patients should be interpreted in conjunction to the patient's age, height and muscle mass. Sodium 136 135 - 145 mmol/L [facility] Potassium 4.4 3.5 - 5.0 mmol/L [facility] Comment: Please note: ??Patients with WBC >100,000 may have falsely elevated Potassium levels. ??For accurate Potassium quantification in these patients send serum separator tube (gold top) for subsequent determinations. ??Contact the Clinical Chemistry Laboratory if there are any questions. Chloride 98 98 - 107 mmol/L [facility] CO2 23 22 - 31 mmol/L [facility] Anion Gap 15 5 - 15 mmol/L [facility] Calcium 9.3 8.5 - 10.5 mg/dL [facility] Total Protein 7.6 6.1 - 8.0 gm/dL [facility] Albumin 4.3 3.2 - 5.2 gm/dL [facility] AST 23 0 - 39 unit/L [facility] ALT 42 0 - 55 unit/L [facility] Alk Phos 69 40 - 120 unit/L [facility] Total Bilirubin 0.2 0.2 - 1.3 mg/dL [facility] Bili, Direct <0.1 0.0 - 0.3 mg/dL [facility] Estimated GFR >60 >=60 [facility] Comment: This estimated GFR (eGFR) value [...] the following links into your internet browser. [email or web address] Blood specimen (specimen) 06/15/2015 11:35 AM EDT 06/15/2015 11:46 AM EDT Narrative Resulting Agency Comment Spec In Lab Natasha Garcia MD CHEMISTRY ORDERABLES Performing Organization Address City/State/[facility] Co de Phone Number [facility] [place] [address] documented in this encounter Visit Diagnoses Diagnosis Chronic hepatitis C without hepatic coma documented in this encounter Care Teams Hot Stick Worker Relationship Specialty Start Date End Date Wendi Singh MD [address] [place] [address] PCP - General Family Medicine 12/11/14 documented as of this encounter
--- OUTSIDE RECORDS SUMMARY | 2023-09-07 12:23 | XMS_ITS | Encounter Summary ---
Author Organization [facility] [address] Care Team Providers Care City Director Name Role Phone Wendi Singh MD Primary Care Provider [phone] Encounter Details Date Type Department Care Team (Late st Contact Info) Description 03/05/2018 External Results [place] [address] Vera Clark HYDROMETEOROLOGIST [facility] [place] [address] Social History Tobacco Use Types Packs/Day Years [...] Type Associated Problems Recent Progress Patient-Stated? Author [facility] Medication Compliance and Understanding Patient Facing Action Plan Yaquelin Lau, [facility] Note: SVR12 through treatment with Mavyret. documented as of this encounter Procedures Procedure Name Priority Date/Time Associated Diagnosis Comments EXTERNAL LAB CBC CMP THYROID RESULTS PANEL Routine 03/04/2018 documented in this encounter Results * CBC / CMP / Thyroid External Results (03/04/2018) Sodium 137 Potassium 4.3 Chloride 101 CO2 29 BUN 12 Creatinine 0.86 Estimated GFR >60 Glucose Lvl 123 Calcium 9.4 Total Protein 7.6 Albumin 3.7 Total Bilirubin 0.3 Alk Phos 93 AST 16 ALT 20 Historical Provider POINT OF CARE JUAN T ORDERABLES documented in this encounter Visit Diagnoses Not on filedocumented in this encounter Care Teams City Director Relationship Specialty Start Date End Date Wendi Singh MD [address] [place] [address] PCP - General Family Medicine 12/11/14 documented as of this encounter
--- OUTSIDE RECORDS SUMMARY | 2023-09-07 12:23 | XMS_ITS | Encounter Summary ---
[facility] [place] [address] Care Team Providers Care Electronics Teacher Name Role Phone Ashley Calixto MD Primary Care Provider [phone] Reason for Visit * Reason Comments [facility] s/p left tka dos 12/02/13 wc doi 12/30/10 Encounter Details Date Type Department Care Team (Late st Contact Info) Description 04/03/2014 3:40 PM EST Office [place] [address] Mihir Herrera MD [facility] [place] [address] S/P total knee arthroplasty, left Discharge Disposition: Home Social History Tobacco Use [...] Sign Reading Time Taken Comments Blood Pressure 125/68 04/03/2014 4:31 PM EST Pulse 86 04/03/2014 4:31 PM EST Temperature - - Respiratory Rate - - Oxygen Saturation - - Inhaled Oxygen Concentration - - Weight - - Height - - Body Mass Index - - documented in this encounter Progress Notes * Michelle Kim, CROP DUSTER HELPER - 04/03/2014 4:40 PM EST PATIENT NAME: Zack Langley AGE: 43 y.o. MR#: [id number] DATE OF VISIT: 04/03/2014 DATE OF INJURY/ONSET: Case Date: 12/02/2013 Surgeon: Surgeon(s) and Role: * Mihir Herrera MD - Primary * Florencio Davenport PA - Physician Blue Line Trimmer Preoperative diagnosis: Left DJD Postoperative diagnosis: Left DJD Procedure(s): @TOTAL KNEE ARTHROPLASTY MODIFIER: ATTUNE STABILIZED ROTATING PLATFORM DEPUY STAFF: Today's covering physician is Dr. Herrera. HISTORY OF PRESENT ILLNESS Mr. Langley a 43 y.o. year old male comes into clinic today for his 4 month f/u of a left knee TKA. He states he has been doing very well since his last visit and has only minimal pain-4/10-that is well controlled with Advil. He has been ambulating, unassisted and continues with home PT exercises. He also states his swelling has greatly decreased. ROS: Negative for fever, chills, SOB, chest pain, nausea, vomiting, and diarrhea. Physical Exam Blood pressure 125/68, pulse 86. Constitutional: oriented to person, place, and time, and in no distress. Skin: Skin is warm and dry. Well approximated incision present on Left knee and proximal tibia. No erythema, edema or drainage. I have made the following determinations: Post Op Left Knee Exam: Gait Abnormality: Normal Knee ROM: Extension:0 Flexion: 120 Alignment: 0-4 degrees Neutral Stability: A/P Translation <5mm Varus (lateral stability) <5mm Valgus (medial stability) <5mm Extension La degrees or less Patella Tracking: Normal Pulses Palpable: Left PT:Yes Left DP:Yes Motor/Sensory: Distal Motor: Normal Distal Sensory: Normal Quadriceps Strength: 1 RADIOLOGICAL STUDIES: 4 XR images of the Left knees from December 2013 show the following findings: Impression Status post left total knee replacement, no postop complications noted. No significant left joint effusion. Mild to moderate right medial compartment narrowing. ASSESSMENT/PLAN: 4 mo s/p Left TKA, doing well post-operatively. Zack Langley is a 43 y.o. male who presents to the clinic 4 months s/p left TKA. He is doing very well post-operatively and has had a dramatic reduction in his pain. We discussed continuation of his home PT regimen for continued strengthening and regaining of ROM. 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 Then he will f/u at the 1 year post-operative elizabeth with imaging. We discussed the appropriate precautions surrounding dental prophylaxis. I stressed that she should avoid elective dental procedures for the first 6 months after surgery and then call the office for a prescription prior to any further dental work for the lifetime of the joint replacement. We also discussed maintaining good foot care and giving prompt attention to any source of infection throughout the body including foot ulcers and urinary tract infections.The patient is in agreement with this plan that was formulated in conjunction with Dr. Herrera. documented in this encounter Plan of Treatment Not on file documented as of this encounter Visit Diagnoses Diagnosis S/P total knee arthroplasty, left documented in this encounter Care Teams Electronics Teacher Relationship Specialty Start Date End Date Ashley Calixto MD [address] [place] [address] PCP - General 12/21/11 12/10/14 documented as of this encounter
--- OUTSIDE RECORDS SUMMARY | 2023-09-07 12:23 | XMS_ITS | Encounter Summary ---
Author Organization [facility] [place] [address] Care Team Providers Care Manager Express Name Role Phone Wendi Singh MD Primary Care Provider [phone] Encounter Details Date Type Department Care Team (Late st Contact Info) Description 12/06/2018 External Results [place] [address] Vera Clark STOCK CLIPPER [facility] [place] [address] Social History Tobacco Use Types Packs/Day Years [...] Type Associated Problems Recent Progress Patient-Stated? Author [facility] Medication Compliance and Understanding Patient Facing [...] on filedocumented in this encounter Care Teams Manager Express Relationship Specialty Start Date End Date Wendi Singh MD [address] [place] [address] PCP - General Family Medicine 12/11/14 documented as of this encounter
--- OUTSIDE RECORDS SUMMARY | 2023-09-07 12:23 | XMS_ITS | Encounter Summary ---
[place] [address] Care Team Providers Care Terrazzo Finisher Name Role Phone Wendi Singh MD Primary Care Provider [phone] Reason for Visit * Reason Comments Medication Management Encounter Details Date Type Department Care Team (Late st Contact Info) Description 01/26/2018 Specialty [place] [address] Yaquelin Hutton Del Social History Tobacco Use Types Packs/Day [...] as of this encounter Progress Notes * Yaquelin Lagunas RPH - 01/26/2018 3:18 PM EST Specialty Pharmacy Consultation; Yaquelin Lagunas RPH Comprehensive Medication Management (CMM) Zack Del Shivam Diagnosis: Hepatitis C Therapy Start Date: TBD Contact in person or via telephone:telephone Mr. Zack Langley is a 47 y.o. (1970) male who was contacted in regard to specialty medication. Spoke with patient regarding Mavyret . A review of the medication therapy was performed. The medication was Filled as scheduled, and all medication related questions and concerns were addressed. The specialty pharmacy staff will follow up with the patient 7-10 days prior to next refill. Is the patient willing to proceed with the Clinical Assessment? Yes Summary and Recommendations: Zack was contacted for initial pharmacist consultation regarding treatment with Mavyret. We reviewed the medication in detail. Zack understood to take three tablets by mouth once daily with food atthe same time each day. He plans on taking the Mavyret along with his other medications in the morning. Zack will cut his pravastatin 20mg in half during the treatment to account for interaction with Mavyret. He notes that he occasionally drinks a couple of beers but he states he can definitely avoid this during treatment. He seems very excited to start the treatment. We reviewed lab schedule and Zack would like orders sent to [facility] in [place], [place]. We will follow-up with Zack a few daysafter he starts. The medication is currently being mailed to him. No recommendations at this time. Clinic Follow-up needed: no Allergies and Drug intolerance: Allergies Allergen Reactions ??? Isoniazid ? Rash... Special Dietary or Hydration Requirements: no There is no height or weight on file to calculate BMI. Medication Reconciliation Discrepancies (compared to [facility] med list) -none Medication Adherence Demonstrates understanding of importance of adherence: yes [...] disease management, targeted medication review Referred By: pharmacist Recipient: beneficiary Provider: plan sponsor pharmacist Visit Type: [facility] Follow-up Method of Contact: by telephone Cognitive Ability: good Drug Interactions Provided the patient with educational material regarding drug interactions: yes Patient Counseling Counseled the patient on the following: reviewed medication changes since last visit, medication safety precautions education provided, drug interaction education provided to patient, doses and administration discussed, safe handling, storage, and disposal discussed, possible adverse effects and management discussed, possible drug and prescription drug interactions discussed, lab monitoring and follow-up discussed, therapeutic rationale discussed, cost of medications and cost implications discussed, adherence and missed doses discussed, pharmacy contact information discussed, health goals discussed, monitoring medication discussed, over the counter products discussed, preventative care discussed, self-monitoring discussed, start medication discussed, timing of medications discussed, lifestyle modification education Drug Medication Management Summary Topics discussed: reviewed medication changes since last visit, medication safety precautions education provided, drug interaction education provided to patient, doses and administration discussed, safe handling, storage, and disposal discussed, possible adverse effects and management discussed, possible drug and prescription drug interactions discussed, lab monitoring and follow-up discussed, therapeutic rationale discussed, cost of medications and cost implications discussed, adherence and missed doses discussed, pharmacy contact information discussed, health goals discussed, monitoring medication discussed, over the counter products discussed, preventative care discussed, self-monitoring discussed, start medication discussed, timing of medications discussed, lifestyle modification education Time spent: 16-30 min Treatment Outcomes No [...] and mitigation strategies, and interruptions in therapy: yes Physical Assessment: Functional limitations identified: no Cognitive limitations identified: no Concern regarding orientation/memory: no Concern with reasoning/judgement: no Is patient a fall risk: no Other needed information: no Social Assessment: Does the patient have a primary child care aide? no Patient has emergency contact on file: Yes Does patient need referral to social worker:no Does patient need referral to advocacy group:no Physical and Home Health Assessment: Is the patient able to store their medication as directed? Yes Is the patient in a safe home environment? Yes Do you have a support network? Yes Reviewed potential home safety hazards: Yes Economic Assessment: Patient is agreeable to medication copay: Yes Copay Amount: $3 Day Supply: 28 Date Needed: as soon as possible- new start Copay assistance required: no Therapy Assessment: Current Medication Dosing/Route/Frequency: Mavyret 3 tablets by mouth once daily Appropriate Therapy: Yes Genotype: 2 Treatment Naive/Experienced: naive Fibrosis Score: F0 fibroscan from 01/12/18 HX of liver transplant: no HBV Coinfection: no HIV Coinfection: no Lab schedule reviewed: Yes Educational information or adherence tools provided? Yes HCV therapy adherence: Yes HCV treatment response: Yes Verbalized understanding to call office before start: Yes Patient experienced change in condition that affects treatment: no Patient's Problems/Needs: Treatment of Hepatitis C- Zack will need to be adherent to the medication regimen and lab schedule. He seems very motivated. Patient's goals: Patient's specific desired goal: SVR12 Measured by: HepC viral load 12 weeks post-treatment Time-frame to meet goal: 8 weeks of treatment + 12 weeks post-treatment to assess Expected Outcome: SVR12 Plan of Care Reviewed and Approved by Pharmacist and Patient: Yes Monitoring requirements for prescribed medication: Monitor HepC viral load at week 4, end of treatment, 3 and 6 months post-treatment Monitor adherence, tolerability, and efficacy Interventions (if applicable): No n/a Additional care/services needed: no Pharmacist Follow-up needed: Yes Informed patient of specialty pharmacy services: Yes -Patient will be provided with welcome packet: Yes Date provided: 01/26/18 Delivery Method: mail -Patient will be provided with Rights & Responsibiliites: Yes Date provided: 01/26/18 Delivery Method: mail -Patient is aware a licensed pharmacist is available 24 hours a day, 7 days a week to discuss medication-related questions or concerns: Yes -Patient verbalizes understanding of the common side effect profile of their medication. The patient is able to call 911 or seek urgent care if signs/symptoms of allergy or harmful adverse reactions occur: Yes Patient Satisfaction with Therapy: yes - Zack seems very motivated to start treatment with Mavyret. He seems like a great candidate for treatment. Patient understands no changes to current drug regimen were made at the appointment and that [facility] (summary located at top of note) for provider review and follow up. Yaquelin Lagunas RPH 01/26/18 4:00PM documented in this encounter Plan of Treatment Not on file documented as of this encounter Goals Goal Patient Goal Type Associated Problems Recent Progress Patient-Stated? Author DH Home Medication Compliance and Understanding Patient Facing Action Plan No Yaquelin Hutton [facility] Note: SVR12 through treatment with Mavyret. documented as of this encounter Visit Diagnoses Not on filedocumented in this encounter Care Teams Terrazzo Finisher Relationship Specialty Start Date End Date Wendi Singh MD [address] [place] [id number] PCP - General Family Medicine 12/11/14 documented as of this encounter
--- OUTSIDE RECORDS SUMMARY | 2023-09-07 12:23 | XMS_ITS | Encounter Summary ---
Author Organization [facility] Address [facility] [place] [address] Care Team Providers Care Ballroom Dancer Name Role Phone Ashley Calixto MD Primary Care Provider [phone] Encounter Details Date Type Department Care Team (Latest Contact Info) Description 01/02/2014 9:42 AM EST - 01/02/2014 11:59 PM [facility] Hospital Encounter XRay at [address] [place] [address] Osteoarthritis of knee Social History Tobacco Use Types Packs/Day Years [...] Sig Dispensed Refills Start Date End Date pravastatin (PRAVACHOL) 20 mg tablet Take 20 mg by mouth daily. buprenorphine HCl (SUBUTEX) 2 mg Tablet, Sublingual Place 4 mg under the tongue daily. 04/03/2014 cloNIDine HCl (CATAPRES) 0.1 mg TabletIndications:S/P total knee arthroplasty, left Take 1 tablet by mouth daily. 30 tablet 0 01/02/2014 04/03/2014 METFORMIN HCL (METFORMIN ORAL) Take 4 tablets by mouth daily. 500mg 12/11/2014 documented as of this encounter Plan of Treatment Not on file documented as of this encounter Procedures Procedure Name Priority Date/Time Associated Diagnosis Comments XR KNEE 4 OR MORE VIEWS Routine 01/02/2014 9:59 AM EST Osteoarthritis of knee documented in this encounter Results * XR knee 4 or more views (01/02/2014 9:59 AM EST) Anatomical Region Laterality Modality Knee Radiographic Pamela ging 01/02/2014 9:59 AM EST Narrative 01/02/2014 10:10 AM EST Examination KNEE 4 OR MORE VIEWS/LEFT Clinical History KNEE PAIN Comparison 09/23/2013. Technique 4 views of the left knee Findings the patient is status post left total knee prosthesis. ??No sign of postop complication, although this is the 1st postoperative film obtained. ??No significant joint effusion. ??Patellofemoral joints are unremarkable. ??There is mild to moderate right medial compartment narrowing. Impression Status post left total knee replacement, no postop complications noted. No significant left joint effusion. ??Mild to moderate right medial compartment narrowing. Procedure Note Pablo Larsen MD - 01/02/2014 Examination KNEE 4 OR MORE VIEWS/LEFT Clinical History KNEE PAIN Comparison 09/23/2013. Technique 4 views of the left knee Findings the patient is status post left total knee prosthesis. No sign of postop complication, although this is the 1st postoperative film obtained. No significant joint effusion. Patellofemoral joints are unremarkable.There is mild to moderate right medial compartment narrowing. Impression Status post left total knee replacement, no postop complications noted. No significant left joint effusion. Mild to moderate right medialcompartment narrowing. Mihir Herrera MD IMG DX ORDERABLES documented in this encounter Visit Diagnoses Diagnosis Osteoarthritis of knee Osteoarthrosis, unspecified whether generalized or localized, lower leg documented in this encounter Care Teams Ballroom Dancer Relationship Specialty Start Date End Date Ashley Calixto MD [facility] [address] [place] [address] PCP - General 12/21/11 12/10/14 documented as of this encounter
--- OUTSIDE RECORDS SUMMARY | 2023-09-07 12:23 | XMS_ITS | Encounter Summary ---
Author Organization [facility] [place] [address] Care Team Providers Care Balloon Sander Name Role Phone Ashley Calixto MD Primary Care Provider [phone] Encounter Details Date Type Department Care Team (Latest Contact Info) Description 05/14/2014 10:59 AM EDT - 05/14/2014 11:57 AM EDT Hospital En[place] [address] Chronic hepatitis C Social History Tobacco Use [...] Procedure Name Priority Date/Time Associated Diagnosis Comments US ABDOMEN COMPLETE Routine 05/14/2014 1 1:42 AM EDT Chronic hepatitis C documented in this encounter Results * US abdomen complete (05/14/2014 11:42 AM EDT) Anatomical Region Laterality Modality Abdomen, Vascular Ultrasound 05/14/2014 11:4 2 AM EDT Narrative 05/14/2014 11:52 AM EDT Abdominal ?(Signed Final 05/14/2014 11:52 ? am) Patient Info ID #: ? [id number] ?: ??[birth year] (43 yrs) Name: ? ZACK LANGLEY ?Visit Date: 05/14/2014 11:39 am Performed By Performed By: ?Ashley Hassan RDMS Attending: ? Chava WEBSTER, Pablo Angel Referred By: ? JUDY HOLMAN ROPE RIDER Service(s) Provided ??[facility] - Abdominal Complete Survey - [id number] ? [id number] Indications ??hepatitis c, please eval for cirrhosis [...] 05/14/2014 11:52 am) Patient Info ID #: [id number] : [birth year] (43 yrs) Name: ZACK ALNGLEY Visit Date: 05/14/2014 11:39 am Performed By Performed By: Ashley Hassan RDMS Attending: Pablo Larsen MD Referred By: JUDY HOLMAN APRN Service(s) Provided [facility] - Abdominal Complete Survey - [phone] [id number] Indications hepatitis c, please eval for cirrhosis [...] coma documented in this encounter Care Teams Balloon Sander Relationship Specialty Start Date End Date Ashley Calixto MD [facility] [address] [place] [address] PCP - General 12/21/11 12/10/14 documented as of this encounter
--- OUTSIDE RECORDS SUMMARY | 2023-09-07 12:23 | XMS_ITS | Encounter Summary ---
Author Organization [facility] [place] [address] Care Team Providers Care Word Processing Operator Name Role Phone Ashley Calixto MD Primary Care Provider [phone] Reason for Referral * Physical Therapy (Routine) - Complete - Patient Will Schedule External Appt Specialty Diagnoses / Procedures Referred By Casey reyes Referred To Contact Physical Therapy Diagnoses S/P total knee arthroplasty, left Michelle Elder APRN [facility] [place] [address] Referral ID Status Reason Start Date Expiration Date Visits Requested Visits Authorized [id number] Complete - Patient Will Schedule External Appt Evaluate and Treat 01/02/2014 07/01/2014 2 2 Reason for Visit * Reason Comments [facility] S/P DOS 12/02/13 LEFT TKA W/C 12/30/10 DOI Encounter Details Date Type Department Care Team (Late st Contact Info) Description 01/02/2014 10:10 AM EST Office [place] [address] Mihir Herrera MD [facility] [place] [address] Michelle Elder APRN [facility] [place] [address] S/P total knee arthroplasty, left (Primary Dx) Discharge Disposition: Home Social History [...] Sign Reading Time Taken Comments Blood Pressure 128/86 01/02/2014 10:58 AM EST Pulse 127 01/02/2014 10:58 AM EST Temperature 37.1 ??C (98.7 ??F) 01/02/2014 10:[address] Respiratory Rate - - Oxygen Saturation - - Inhaled Oxygen Concentration - - Weight 126.6 kg (279 lb) 01/02/2014 10:58 AM EST Height 180.3 cm (5' 11) 01/02/2014 10:58 AM EST Body Mass Index 38.91 01/02/2014 10:58 AM EST documented in this encounter Progress Notes * Michelle Kim, MANAGER NON PROFIT - 01/02/2014 11:20 AM EST PATIENT NAME: Zack Langley AGE: 43 y.o. MR#: [id number] DATE OF VISIT: 01/02/2014 DATE OF INJURY/ONSET: Case Date: 12/02/2013 Surgeon: Surgeon(s) and Role: * Mihir Herrera MD - Primary * Florencio Davenport PA - Physician Voip Engineer Preoperative diagnosis: Left DJD Postoperative diagnosis: Left DJD Procedure(s): @TOTAL KNEE ARTHROPLASTY MODIFIER: ATTUNE STABILIZED ROTATING PLATFORM Vers[employer]UY STAFF: Today's covering physician is Dr. Herrera. CHIEF COMPLAINT: Left knee pain 1 mo s/p L TKA HISTORY OF PRESENT ILLNESS Mr. Langley a 43 y.o. year old male, with a prior history of narcotics abuse, comes into clinic today for his 1 month f/u of a left knee TKA. He states he had been doing well until yesterday when he was dropped down to 1 tab Oxycodone Q 4 hours from 2 Q 6 hours. He stateshis pain is unmanageable with the current regimen, especially in the morning. He was discharged by the home physical therapist, though states he is now unable to completed his exercises because of pain. He began taking his suboxone again today, as he states he did not want to become dope sick in front of his kids. He states his pain is globally located and achy to sharp. He has been taking aleve and tylenol without good effect. He states he is very frustrated with his pain management plan. ROS: Negative for fever, chills, SOB, chest pain, nausea, vomiting, and diarrhea. Physical Exam Blood pressure 128/86, pulse 127, temperature 37.1 ??C (98.7 ??F), height 180.3 cm (5' 11), .554 kg (279 lb). Constitutional: oriented to person, place, and time, obese, and in no distress. Psych: Appears anxious and agitated, mildly tremulous Skin: Skin is warm and dry. Healing, well approximated incision present on Left knee and proximal tibia. No erythema, edema or drainage. Left Knee Exam Comments: Comes in out antalgia. 1+ effusion. ROM 120 deg flexion on L, 130 deg on R, lacks 5 deg extension in comparison to contralateral side. No medial joint line tenderness. No lateral joint line tenderness Normal sensation and motor function distally. Neurologic Exam Mental Status Oriented to person, place, and time. RADIOLOGICAL STUDIES: I reviewed 4 images of the Left knees taken today, which show intact TKA components and the following findings: Impression Status post left total knee replacement, no postop complications noted. No significant left joint effusion. Mild to moderate right medial compartment narrowing. ASSESSMENT/PLAN: Pain s/p L TKA Zack Langley is a 43 y.o. male presents to the clinic with pain secondary to a history of narcotic abuse and Left TKA completed 1 month ago. Globally, his TKA is doing very well per clinical exam and imaging. However, he is struggling with pain issues and is not tolerating his pain medication taper. It is concerning that he states he will not continue his home exercises because of the pain. Ashley contacted our pain management team at [facility] during the visit to assist with management of his case. We have also contacted his pain clinic doctor who has been managing his post-operative pain care, Dr. Jo Alves at [facility], to come up with a plan. Dr. Alves visited the patient in the clinic today and we were able to reach Dr. Singh, who will be following the patient for pain care/suboxone management. Per Dr. Singh, the patient was given a script for 0.1 mg Clonidine Q Day to help the patient transition off of the medications. He will f/u withthis clinic in 2-3 weeks or sooner for worsening symptoms. The patient is in agreement with this plan that was formulated in conjunction with Dr. Herrera. documented in this encounter Plan of Treatment Scheduled Referrals Name Type Priority Associated Diagnoses Orde r Schedule Referral to Physical Therapy Outpatient Referral Routine S/P total knee arthroplasty, left Ordered: 01/02/2014 documented as of this encounter Visit Diagnoses Diagnosis S/P total knee arthroplasty, left- Primary documented in this encounter Care Teams Word Processing Operator Relationship Specialty Start Date End Date Ashley Calixto MD [address] [place] [address] PCP - General 12/21/11 12/10/14 documented as of this encounter
--- OUTSIDE RECORDS SUMMARY | 2023-09-07 12:23 | XMS_ITS | Encounter Summary ---
Author Organization Formerly [facility] [place] [address] Care Team Providers Care Finisher [employer] Name Role Phone Wendi Singh MD Primary Care Provider [phone] Encounter Details Date Type Department Care Team (Late st Contact Info) Description 05/24/2015 Orders [place] [address] Natasha Garcia MD [facility] DR GASTROENTEROLOGY DEPT. [place] [id number] Chronic hepatitis C without hepatic coma Social [...] documented as of this encounter Results * (ABNORMAL) Liver Fibrosis Panel (06/15/2015 11:35 AM EDT) Liver Fibrosis Panel FLEXITEST 3(A) [facility] Comment: FLEXITEST 3 TESTS RESULTS--------UNITS--REF. [...] 0.61-0.62 ?A2-A3 0.63-1.00 ?A3 ? severe activity Cvidw-5-Rnlfxyhpopvnt ? 144 ?mg/dL ??106-279 Haptoglobin ? 225 H ?mg/dL ??43-212 Apolipoprotein A1 ? 134 ?mg/dL ??94-176 Total Bilirubin ? 0.3 ?mg/dL ??0.2-1.2 GGT ?27 ?U/L ??3- 95 ALT ?40 ?U/L ??9- 46 Reference ID ?[id number] Footnote ?SEE NOTE The reliability of results is dependent on compliance with the preanalytical and analytical conditions recommended by [employer]. The tests have to be deferred for: [...] The performance characteristics have been determined by [facility]. It has not been cleared or approved by the U.S. Food and Drug Administration. Performance characteristics refer to the analytical performance of the test. [employer], the associated logo, [employer] and all associated [employer] lopez are the registered trademarks of [employer]. All third constitution party lopez - (R) and (TM) - are the property of their respective owners. (C) [id number] [employer]. All rights reserved. Test performed by: ? [facility] ? [address] [facility] ? [place] [address] ? Phone: ??[phone] Director: ??Yordan Ocampo M.D. Test Reported by [employer], [employer], [address] [place] [address] Jacob Michelle M.D., Ph.D., Director of Laboratories , [facility] [id number] Blood specimen (specimen) 06/15/2015 11:35 AM EDT 06/15/2015 1:37 PM EDT Narrative Resulting Agency Comment Spec In Lab Natasha Garcia MD CHEMISTRY ORDERABLES [facility] [place] [address] * Hepatitis B Surface Antigen (06/15/2015 11:35 AM EDT) HepB Surface Ag Negative Negative [facility] Blood specimen (specimen) 06/15/2015 11:35 AM EDT 06/15/2015 11:46 AM EDT Narrative Resulting Agency Comment Spec In Lab Natasha Garcia MD CHEMISTRY ORDERABLES Performing Organization Address [facility] Co de Phone Number [facility] [place] [address] * Hepatitis B Surface Antibody (06/15/2015 11:35 AM EDT) Pathologist [facility] HepB Surface Ab Positive [facility] Comment: Expected Results: Vaccinated: Positive [...] MD IMMUNOLOGY ORDERABLE S Performing Organization Address [facility] Co de Phone Number [facility] [place] [address] * (ABNORMAL) Hepatitis A Antibody, Total (06/15/2015 11:35 AM EDT) Pathologist [facility] Hepatitis A Ab Total Positive(A ) Negative [facility] Blood specimen (specimen) 06/15/2015 11:35 AM EDT 06/15/2015 11:46 AM EDT Narrative Resulting Agency Comment Spec In Lab Natasha Garcia MD IMMUNOLOGY ORDERABLE S Performing Organization Address [facility] Co de Phone Number [facility] [place] [address] * Hepatitis C RNA, quantitative, PCR (06/15/2015 11:35 AM EDT) Pathologist [facility] HCV Viral Load 910,856 IU/mL [facility] HCV Viral Load Result: [id number] IU/mL Indication for Study: Hepatitis C Infection Analysis: A quantitiative real time reverse transcriptase PCR assay was performed on extracted viral RNA for the purpose of quantification. Sample: plasma (1 mL minimum volume) Method: Devonte Jose TaqMAN 48 HCV Linear Range: 15 IU/mL - 100,000,000IU/mL (95% CI) Note: This assay is being performed in the [facility] Molecular Pathology Laboratory. Bertin [place], Ph.D. Director, Molecular Pathology [facility] Comment: [VERIFIED DATE]06.18.15 Verified By:Mary Murphy (Electronic Signature) Blood specimen (specimen) 06/15/2015 11:35 AM EDT 06/16/2015 8:51 AM EDT Narrative Resulting Agency Comment Spec In Lab Natasha Garcia MD IMMUNOLOGY ORDERABLE S Performing Organization Address [facility] Co de Phone Number [facility] [place] [address] * Prothrombin Time (06/15/2015 11:35 AM EDT) PT 12.6 12.0 - 15.[address] [facility] Comment: An INR <2.0 indicates [...] clinical circumstances. INR 0.9 0.9 - 1.1 [facility] Blood specimen (specimen) 06/15/2015 11:35 AM EDT 06/15/2015 11:46 AM EDT Narrative Resulting Agency Comment Spec In Lab Natasha Garcia MD HEMATOLOGY ORDERABLE S Performing Organization Address [facility] Co de Phone Number [facility] [place] [address] * (ABNORMAL) Comprehensive metabolic panel (non-fasting) (06/15/2015 11:35 AM EDT) Glucose Lvl 97 65 - 199 mg/dL [facility] Comment:Diabetes: >=200 mg/d L plus symptoms BUN 8(L) 10 - 20 mg/dL [facility] Creatinine 0.78(L) 0.80 - 1.50 mg/dL [facility] Comment: Please note that the pediatric reference intervals supplied above were not validated at [facility]. Results from pediatric patients should be interpreted in conjunction to the patient's age, height and muscle mass. Sodium 136 135 - 145 mmol/L [facility] Potassium 4.4 3.5 - 5.0 mmol/L [facility] Comment: Please note: ??Patients with WBC >100,000 may have falsely elevated Potassium levels. ??For accurate Potassium quantification in these patients send serum separator tube (gold top) for subsequent determinations. ??Contact the Clinical Chemistry Laboratory if there are any questions. Chloride 98 98 - 107 mmol/L [facility] CO2 23 22 - 31 mmol/L [facility] Anion Gap 15 5 - 15 mmol/L [facility] Calcium 9.3 8.5 - 10.5 mg/dL [facility] Total Protein 7.6 6.1 - 8.0 gm/dL [facility] Albumin 4.3 3.2 - 5.2 gm/dL [facility] AST 23 0 - 39 unit/L [facility] ALT 42 0 - 55 unit/L [facility] Alk Phos 69 40 - 120 unit/L [facility] Total Bilirubin 0.2 0.2 - 1.3 mg/dL [facility] Bili, Direct <0.1 0.0 - 0.3 mg/dL [facility] Estimated GFR >60 >=60 [facility] Comment: This estimated GFR (eGFR) [...] the following links into your internet browser. [email or web address] [email or web address] Blood specimen (specimen) 06/15/2015 11:35 AM EDT 06/15/2015 11:46 AM EDT Narrative Resulting Agency Comment Spec In Lab Natasha Garcia MD CHEMISTRY ORDERABLES [facility] [place] [address] documented in this encounter Visit Diagnoses Diagnosis Chronic hepatitis C without hepatic coma documented in this encounter Care Teams [employer]isher [employer] Relationship Specialty Start Date End Date Wendi Singh MD [address] [place] [address] PCP - General Family Medicine 12/11/14 documented as of this encounter
--- OUTSIDE RECORDS SUMMARY | 2023-09-07 12:23 | XMS_ITS | Encounter Summary ---
Author Organization Formerly [facility], Later [facility] Address [facility] [place] [address] Care Team Providers Care Rotary Swaging Machine Operator Name Role Phone Wendi Singh MD Primary Care Provider [phone] Reason for Visit * Reason Comments Aftercare Of Tjr Left TKA 12/02/13 Encounter Details Date Type Department Care Team (Late st Contact Info) Description 12/25/2015 5:00 PM EDT Office [place] [address] Brock Colin PA [facility] [place] [address] Status post total left knee replacement Social [...] Sign Reading Time Taken Comments Blood Pressure 130/73 12/25/2015 4:05 PM EDT Pulse 88 12/25/2015 4:05 PM EDT Temperature - - Respiratory Rate - - Oxygen Saturation - - Inhaled Oxygen Concentration - - Weight 124.7 kg (275 lb) 12/25/2015 4:05 PM EDT stated Height 180.3 cm (5' 11) 12/25/2015 4:05 PM EDT stated Body Mass Index 38.35 12/25/2015 4:05 PM EDT documented in this encounter Progress Notes * Brock Colin PA - 12/25/2015 5:00 PM EDT Date of Injury: 12/30/2010 Case Date: 12/02/2013 Surgeon: Surgeon(s) and Role: * Mihir Herrera MD - Primary Procedure(s): @TOTAL KNEE ARTHROPLASTY MODIFIER: ATTUNE STABILIZED ROTATING PLATFORM DEPUY HPI: 45 yo male returns, he is now 2 years from his knee replacement. He has done well. There is nolimiting pain. ROM and stability are not limiting. He has no complaints in regard to the knee. 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 He is pleased with the results of the operation. No complaints at this point. [facility] Surgical Followup Visit 12/25/2015 PROMIS-10 General Health Good PROMIS-10 Quality of Life Very Good PROMIS-10 Physical Health Good PROMIS-10 Mental Health Very Good PROMIS-10 Social Activity Good PROMIS-10 Everyday Activities Mostly PROMIS-10 Pain 5 PROMIS-10 Fatigue Moderate PROMIS-10 Social Roles Good PROMIS-10 Anxious or Depressed Sometimes PROMIS PHYSICAL HEALTH SCORE (range 16-68) 42.3 PROMIS MENTAL HEALTH SCORE (range 21-68) 48.3 KOOS-PS Scores 42 Gone to ER since surgery No Admitted to hospital since recent ortho surgery No Additional surgery on same body part No [facility] Response 12/25/2015 KOOS-PS Scores 42 [facility]ine [facility] Response 12/25/2015 KOOS-PS Scores 42 PE: Ambulatory without assist or antalgia. There is no effusion to the knee. No pain or laxity withvarus and valgus stress. ROM from full extension to 125 today. Excellent quad strength. Calves softand nontender without edema. X-rays: Cemented implants; no sign of loosening or subsidence. No wear or osteolysis. No evidence of complication. Assessment: S/P Left TKA Plan: He has done well. We reviewed ongoing considerations for his replacement. We reviewed joint precautions and infection management. We discussed appropriate activities to prevent premature implant failure. I encouraged continued joint specific rehab exercises. We'll plan to f/u in 5 year(s) or sooner as needed. documented in this encounter Plan of Treatment Not on file documented as of this encounter Visit Diagnoses Diagnosis Status post total left knee replacement documented in this encounter Care Teams Rotary Swaging Machine Operator Relationship Specialty Start Date End Date Wendi Singh MD [address] [place] [address] PCP - General Family Medicine 12/11/14 documented as of this encounter
--- OUTSIDE RECORDS SUMMARY | 2023-09-07 12:23 | XMS_ITS | Encounter Summary ---
Author Organization [facility] Address [facility] [place] [address] Care Team Providers Care Courtroom Reporter Name Role Phone Wendi Singh MD Primary Care Provider [phone] Encounter Details Date Type Department Care Team (Latest Contact Info) Description 12/25/2015 3:48 PM EDT - 12/25/2015 11:59 PM EDT Hospital Encounter XRay at [address] [place] [address] Mihir Herrera MD [facility] [place] [address] Presence of left artificial knee joint Discharge Disposition: Home Social History Tobacco Use [...] Sig Dispensed Refills Start Date End Date SUBOXONE 4-1 mg Film DISSOLVE 1 FILM [...] XR KNEE AP & LAT LEFT Routine 12/25/2015 3:57 PM EDT Presence of left artificial knee joint documented in this encounter Results * XR Knee 1-2 Views Left (Generic) (12/25/2015 3:57 PM EDT) Anatomical Region Laterality Modality Knee Left Digital Radiogra phy Narrative 12/25/2015 4:01 PM EDT EXAMINATION: XR KNEE 1-2 VIEWS LEFT (GENERIC) CLINICAL HISTORY: LEFT TKA ANNUAL CHECK TECHNIQUE: ? COMPARISON: Multiple examinations since December 2013 FINDINGS: A LEFT total knee arthroplasty is present. Alignment: The prosthesis is unchanged in alignment. Complication: There is no loosening or fracture. No large effusion. Soft tissues: Normal Impression Unchanged and Uncomplicated LEFT Total ??knee arthroplasty Procedure Note Elise Levi MD - 12/25/2015 EXAMINATION: XR KNEE 1-2 VIEWS LEFT (GENERIC) CLINICAL HISTORY: LEFT TKA ANNUAL CHECK TECHNIQUE: COMPARISON: Multiple examinations since December 2013 FINDINGS: A LEFT total knee arthroplasty is present. Alignment: The prosthesis is unchanged in alignment. Complication: There is no loosening or fracture. No large effusion. Soft tissues: Normal Impression Unchanged and Uncomplicated LEFT Total knee arthroplasty Mihir Herrera MD IMG DX ORDERABLES documented in this encounter Visit Diagnoses Diagnosis Presence of left artificial knee joint Knee joint replacement by other means documented in this encounter Care Teams Courtroom Reporter Relationship Specialty Start Date End Date Wendi Singh MD [address] [place] [address] PCP - General Family Medicine 12/11/14 documented as of this encounter
--- OUTSIDE RECORDS SUMMARY | 2023-09-07 12:23 | XMS_ITS | Encounter Summary ---
Author Organization [facility] Address [facility] [place] [address] Care Team Providers Care [facility] Name Role Phone Wendi Singh MD Primary Care Provider Reason for Visit * Reason Comments Follow-up L TKA DOS 12/02/13 Encounter Details Date Type Department Care Team (Late st Contact Info) Description 10/18/2018 10:15 AM EDT Office [place] [id number] Emmett, MARKO Bean [facility] DR [place] [address] Status post total left knee replacement Social [...] Pulse 75 10/18/2018 9:59 AM EDT Temperature - - Respiratory Rate - - Oxygen Saturation - - Inhaled Oxygen Concentration - - Weight 128.4 kg (283 lb) 10/18/2018 9:59 AM EDT Height 181 cm (5' 11.26) 10/18/2018 9:59 AM EDT Body Mass Index 39.18 10/18/2018 9:59 AM EDT documented in this encounter Progress Notes * Emmett, MARKO Bean - 10/18/2018 10:15 AM EDT Arthroplasty/Orthopaedic History: 1. Left TKA, Javier, 12/12/13 HPI: Zack Langley is a very pleasant 48 y.o. year-old male and is now 5 years post left total knee replacement The patient has been doing very well. Patient has occasional, intermittent pain for which he uses OTC analgesics. No fevers, chills, nausea, vomiting, or symptoms of infection. Zack has been ambulating with no assistive device. He is not taking narcotic pain medicine. ROS: Denies: fever, chills, night sweats, nausea, or vomiting BP 105/58 Pulse 75 Ht 181 cm (5' 11.26) Wt 128.4 kg (283 lb) BMI 39.18 kg/m?? Physical Exam: Well-appearing male in no acute distress. Alert and Oriented x 3 and answers all questions appropriately. The incision is well healed, with no signs of infection. Knee Exam: Left Knee ROM: Extension:0 Flexion: 120 Alignment: 0-4 degrees Neutral Stability: A/P Translation <5mm Varus <5mm Valgus <5mm Extension La degrees or less Patella Tracking: Normal Pulses Palpable: Left PT:Yes Left DP:Yes Motor/Sensory: Distal Motor: Normal Distal Sensory: Normal Quadriceps Strength: 5 X-RAYS: Multiple radiographic views were obtained at my request and reviewed with the patient. X-rays show a well-placed prosthesis with no evidence of fracture, subsidence, loosening, or periprosthetic complication. Questionnaire Responses: [facility] Surgical Postop Visit 10/18/2018 PROMIS-10 General Health Good PROMIS-10 Quality of Life Very Good PROMIS-10 Physical Health Very Good PROMIS-10 Mental Health Excellent PROMIS-10 Social Activity Excellent PROMIS-10 Everyday Activities Completely PROMIS-10 Pain 7 PROMIS-10 Fatigue Mild PROMIS-10 Social Roles Very Good PROMIS-10 Anxious or Depressed Sometimes PROMIS PHYSICAL HEALTH SCORE 47.7 PROMIS MENTAL HEALTH SCORE 56 KOOS JR Scores 63.78 Problems with surgical incision/wound after surgery No Gone to ER since knee surgery No Admitted to hospital since recent ortho surgery No Additional surgery on same body part No TKA Grade 9 Pain in other KNEE Moderate Back pain at this moment Very mild Satisfaction with Treatment Satisfied Choose Same Treatment Again Definitely yes [facility] Response 10/18/2018 KOOS JR Scores 63.78 Spine [facility] Response 10/18/2018 KOOS JR Scores 63.78 ASSESSMENT/PLAN: Mr. Langley is a 48 y.o. year old male status post left total knee replacement. Doing well postoperatively. Continue weightbearing as tolerated and working on range of motion. We will see him back in 3 years for repeat examination. X-rays will be needed at that time. Patient may return to normal activities as his pain and function allow. We discussed the appropriate precautions surrounding dental prophylaxis; according to the AAOS Appropriate Use Criteria we do not recommend antibiotic use prior to dental procedures for Zack. If Zack has any changes in health status we recommend he contact our office prior to dental procedures for updated recommendations All questions were answered. Signed: MARKO Talavera 10/18/2018 documented in this encounter Plan of Treatment Not on file documented as of this encounter Goals Goal Patient Goal Type Associated Problems Recent Progress Patient-Stated? Author DH Home Medication Compliance and Understanding Patient Facing Action Plan No Yaquelin Hutton, [facility] Note: SVR12 through treatment with Mavyret. documented as of this encounter Visit Diagnoses Diagnosis Status post total left knee replacement documented in this encounter Care Teams Hospital Cna Relationship Specialty Start Date End Date Wendi Singh MD [address] [place] [id number] PCP - General Family Medicine 12/11/14 documented as of this encounter
--- OUTSIDE RECORDS SUMMARY | 2023-09-07 12:23 | XMS_ITS | Encounter Summary ---
Author Organization [facility] [place] [address] Care Team Providers Care Information Services Vice President Name Role Phone Juani Singh MD Primary Care Provider [phone] Encounter Details Date Type Department Care Team (Late st Contact Info) Description 06/15/2015 10:00 AM EDT Office [place] [address] Vera Clark APRN [facility] [place] [address] Chronic hepatitis C without hepatic coma Social [...] Sign Reading Time Taken Comments Blood Pressure 139/78 06/15/2015 9:31 AM EDT Pulse 90 06/15/2015 9:31 AM EDT Temperature - - Respiratory Rate - - Oxygen Saturation - - Inhaled Oxygen Concentration - - Weight 124.7 kg (275 lb) 06/15/2015 9:31 AM EDT Height 180.3 cm (5' 11) 06/15/2015 9:31 AM EDT Body Mass Index 38.35 06/15/2015 9:31 AM EDT documented in this encounter Progress Notes * Vera Clakr, SHELLFISH PROCESSING MACHINE TENDER - 06/15/2015 10:10 AM EDT Hepatology Follow Up Note Patient: Zack Langley Gender: male : 1970 Provider: Vera Clark NP Referring Physician: JUANI SINGH MD Zack Langley is a 44 y.o. man with Hepatitis C, GT 2b who is naive to treatment. He has been followed by Marcia Whitman and Rebecca Borrero and had never had treatment of his HCV because of low fibrosis (F0-F1 based on biopsy in 2011). His risk factors for acquisition include IVDU, first used 25 years ago and he has been clean since 2011. He was last seen 1 year ago. He has been feeling well in the past year. Has some fatigue, has been hard to get going for the past 3-4months His weeight fluxuates, has been trying to lose weight unsuccessfully. No blood in stool, no abdominal pain. He takes suboxone which makes him occasionally constipatied. HPIProblem List: 1. Hepatitis C, genotype 2b [...] genotype 2 Viral load 266,000 Cryoglobulins negative Liver Biopsy 11/22/11: ---Pathologic Diagnosis--- Liver, percutaneous [...] evaluated for the final diagnosis. CR-0 Abdominal Ultrasound 03/18/13: Impression Ultrasound - Abdomen Complete - Summary 1. Mild hepatomegaly with increased echogenicity consistent with fatty infiltration. No hepatic mass. 2. Small 5 mm. hepatic cyst, unchanged compare to prior CT. I viewed the images and agree with the above interpretation. Current Outpatient Prescriptions Medication Sig Dispense Refill ??? lisinopril (PRINIVIL;ZESTRIL) 20 mg Tablet 0 [...] Allergen Reactions ??? Isoniazid ? Rash... Objective: Filed Vitals: 06/15/15 0931 BP: 139/78 Pulse: 90 Height: 180.3 cm (5' 11) Weight: 124.739 kg (275 lb) Body mass index is 38.37 kg/(m^2). Physical Exam Constitutional: He is oriented to person, place, and time. He appears well- developed and well-nourished. HENT: Head: Normocephalic and atraumatic. Eyes: Pupils are equal, round, and reactive to light. No scleral icterus. Neck: Normal range of motion. Neck supple. No thyromegaly present. Cardiovascular: Normal rate, regular rhythm and normal heart sounds. No murmur heard. Pulmonary/Chest: Effort normal. Wheezes present. He has no rales. Abdominal: Soft, obese. Bowel sounds are normal. [...] normal. Lab Results Component Value Date WBC 12.6* 05/14/2014 HGB 14.3 05/14/2014 HCT 41.3 05/14/2014 MCV 84.6 05/14/2014 PLATELET 285 05/14/2014 No results for input(s): INR in the last 168 hours. Lab Results Component Value Date ALT 27 05/14/2014 AST 20 05/14/2014 ALKPHOS 79 05/14/2014 BILITOT 0.2 05/14/2014 Chemistry Component Value Date/Time NA 138 05/14/2014 1217 K 4.5 05/14/2014 1217 CL 97* 05/14/2014 1217 CO2 25 05/14/2014 1217 BUN 13 05/14/2014 1217 CREATININE 0.77* 05/14/2014 1217 Component Value Date/Time CALCIUM 9.4 05/14/2014 1217 ALKPHOS 79 05/14/2014 1217 AST 20 05/14/2014 1217 ALT 27 05/14/2014 1217 BILITOT 0.2 05/14/2014 1217 Procedure: Vibration Controlled Transient Elastography (VCTE) or Fibroscan [place] Protocol: Patient's identity, procedure and site were [...] >60%) 83% Predicted fibrosis stage: F0- F1 Assessment and Plan: Mr. Langley is a pleasant 44 y.o. man seen in follow-up for hepatitis C, genotype 2b, stage 0-1 fibrosis. He has risk factors for hepatitis C dating back 20-25 years. He has been clean since February 2011 at which time he was started on suboxone. 1. Hepatitis C, genotype 2b, stage 0-1. Would require 12 weeks of sofosbuvir and ribavirin treatment or 12 weeks of sofosbuvir and daclatasvir, however we know that his insurance ([place] Medicaid) will not cover the medications based on low fibrosis stage and typically cover medication only with people with stage 3-4 fibrosis. Plan to check liver fibrosis panel today as well as updated CBC, CMP. If fibrosure shows any more advanced fibrosis we will pursue treatment. His fatigue may be related to hepatitis C, although this is difficult tosay for sure and other sources should be investigated. He also believes it may be related to the seasons. 2. Class III obesity. This is significant risk factor for COELHO. He was noted to have steatosis on ultrasound in February which increases my concern that his liver disease is progressing due to combination of HCV and COELHO. 3. Preventative Health: Hepatitis A and B vaccine series. He tells me that he completed vaccine series through PCP, will check serologies today. He is interested in cutting down on cigarettes and will discuss Chantix use with his PCP which he believes will help him, although he does have a hx of depression and suicidal thoughts years ago. Plan to follow up in 1 year to monitor fibrosis and consideration of treatment, sooner if fibrosureshows more advanced fibrosis. Vera Clark APRN Section of Gastroenterology [place] [address] 20 minutes of this 30 minute visit in face to face discussion regarding disease, prognosis and treatment ADDENDUM 06/19/15: Results for ZACK LANGLEY ( ) as of 06/19/2015 09:47 06/15/2015 11:35 Liver Fibrosis Panel FLEXITEST 3 (A) Alk Phos 69 AST 23 ALT 42 HCV Viral Load 957287 Hepatitis A Ab Positive (A) HepB Surface Ab Positive HepB Surface Ag Negative Liver fibrosis panel: 0.07/ F0/ no fibrosis He has been vaccinated against Hepatitis A and B and has no fibrosis on fibrosure. Plan to continueannual monitoring. documented in this encounter Plan of Treatment Not on file documented as of this encounter Visit Diagnoses Diagnosis Chronic hepatitis C without hepatic coma documented in this encounter Care Teams Information Services Vice President Relationship Specialty Start Date End Date Juani Singh MD [address] [place] [address] PCP - General Family Medicine 12/11/14 documented as of this encounter
--- OUTSIDE RECORDS SUMMARY | 2023-09-07 12:23 | XMS_ITS | Encounter Summary ---
[place] [address] Care Team Providers Care Photovoltaic Fabrication Technician Name Role Phone Wendi Singh MD Primary Care Provider [phone] Reason for Visit * Reason Onset Date Comments Prior Authorization 01/24/2018 Erica Encounter Details Date Type Department Care Team (Late st Contact Info) Description 01/24/2018 [place] [address] Charissa Dotson, [facility] Prior Authorization (Erica) Social History Tobacco Use Types Packs/Day Years [...] encounter Miscellaneous Notes * Telephone Encounter - Charissa Dotson - 01/24/2018 3:22 PM EST [facility], Prior Authorization Approval APPROVAL DATES: 01/24/18 - 03/26/18 SPECIFIC INS REQUIREMENT: Patient may fill through the Pharmacy with a $3.00 co-pay CASE/REFERENCE # [id number] APPROVAL NOTIFICATION RECEIVED VIA: Fax * Telephone Encounter - Charissa Dotson - 01/24/2018 12:45 PM EST [facility], Medication Prior Authorization Patient: Zack Langley Patient : 1970 Patient Address: [address] [facility] [address] (home) Medication: Mavyret Subscriber Insurance: [place] Medicaid Physician: Vera Clark Sent Via: Fax Guidry: N/A Ref/Case/PA#: N/A Medication Strength Frequency Requested: Mavyret 100-40mg: Take 3 tablets daily Qty/Day Supply: days New Start: Yes Diagnosis & ICD-10 Code: Chronic hepatitis C without hepatic coma, B18.2 documented in this encounter Plan of Treatment Not on file documented as of this encounter Visit Diagnoses Not on filedocumented in this encounter Care Teams Photovoltaic Fabrication Technician Relationship Specialty Start Date End Date Wendi Singh MD [address] [place] [address] PCP - General Family Medicine 12/11/14 documented as of this encounter
--- OUTSIDE RECORDS SUMMARY | 2023-09-07 12:23 | XMS_ITS | Encounter Summary ---
[place] [address] Care Team Providers Care Construction Technology Instructor Name Role Phone Wendi Singh MD Primary Care Provider [phone] Reason for Visit * Reason Onset Date Comments Hepatitis C 04/05/2018 Encounter Details Date Type Department Care Team (Late st Contact Info) Description 04/05/2018 Telephone [place] [id number] Toya Gongora, RN Hepatitis C Social History Tobacco Use Types Packs/Day [...] Miscellaneous Notes * Telephone Encounter - Toya Gongora, RN - 04/05/2018 3:35 PM EST Called patient to check in. He plans to have EOT blood draw at [facility] this weekend. Will anticipate results in about one week. documented in this encounter Plan of Treatment Not on file documented as of this encounter Goals Goal Patient Goal Type Associated Problems Recent Progress Patient-Stated? Author [facility] Medication Compliance and Understanding Patient Facing Action Plan Yaquelin Lau, [facility] Note: SVR12 through treatment with Mavyret. documented as of this encounter Visit Diagnoses Not on filedocumented in this encounter Care Teams Construction Technology Instructor Relationship Specialty Start Date End Date Wendi Singh MD [address] [place] [address] PCP - General Family Medicine 12/11/14 documented as of this encounter
--- OUTSIDE RECORDS SUMMARY | 2023-09-07 12:23 | XMS_ITS | Encounter Summary ---
[place] [address] Care Team Providers Care Living Advisor Name Role Phone Wendi Singh MD Primary Care Provider [phone] Reason for Visit * Reason Comments Medication Management Encounter Details Date Type Department Care Team (Late st Contact Info) Description 02/07/2018 Specialty Pharm[place] [address] Yaquelin Hutton [facility] Social History Tobacco Use Types Packs/Day Years [...] Progress Notes * Yaquelin Lagunas RPH - 02/07/2018 4:30 PM EST Specialty Pharmacy Consultation; Yaquelin Lagunas RPH Comprehensive Medication Management (CMM) Zack Langley Diagnosis: Hepatitis C Therapy Start Date: patient states he started as soon as he received it - 02/02/18 Mr. Zack Langley is a 47 y.o. (1970) male who was contacted in regard to specialty medication. Spoke with patient regarding Mavyret. A review of the medication therapy was performed. All medication related questions and concerns were addressed. The specialty pharmacy staff will follow up with the patient 10 days prior to next refill. Is the patient willing to proceed with the Clinical Assessment? Yes Summary and Recommendations: Zack was contacted for early follow-up regarding initiation of treatment with Mavyret. He reports that he takes the medication daily at 6:30am with toast and he started as soon as he received it on 02/02/18. He reports he is tolerating the medication well thus far although he does note he feels a little dehydrated and his mouth is a little dry. He has been trying to stay well hydrated also. Zack does not report any problems with adherence. He seems pleased with the treatment at this point. We will be calling him again for a refill reminder about 10 days prior to when his first refill will bedue. No recommendations at this time. Clinic Follow-up needed: no Allergies and Drug intolerance: Allergies Allergen Reactions ??? Isoniazid ? Rash... Special Dietary Requirements: no There is no height or weight on file to calculate BMI. Medication Reconciliation Discrepancies (compared to [facility] med list) -none Medication Adherence Patient reported X missed doses [...] beneficiary Provider: plan sponsor pharmacist [place] [facility] [place] Method of Contact: by telephone Cognitive [...] medications discussed, lifestyle modification education Time spent: 1-15 min Treatment Outcomes No data found. Reviewed [...] Assessment: Does the patient have a primary customer care professional? no Patient has emergency contact on file: Yes Does patient need referral to social media intern: No Does patient need referral to advocacy [...] Amount: $3 Day Supply: 28 Date Needed: next refill will be needed for 03/02/17 Copay assistance required: no Patient's Problems/Needs: Treatment of Hepatitis C- Zack will need to be adherent to the medication regimen and lab schedule. Therapy Assessment: Current Medication Dosing/Route/Frequency: Mavyret 3 tablets by mouth once daily Appropriate Therapy: Yes Genotype: 2 Treatment Naive/Experienced: naive Fibrosis Score: F0 fibroscan from 01/12/18 HX of liver transplant: no HBV Coinfection: no HIV Coinfection: no Lab schedule reviewed: Yes Upcoming Lab Reminder Given: Yes Personal Hygiene Device Disposal Reminder Given: Yes Side Effects From Medication: no Side Effect Mitigation Strategies Discussed: Yes Proper Hydration: Yes Missed Doses: no Barriers to Adherence: no Adherence Tools Used by Patient: no Number of Days Supply Remaining from Prior Fill: 22 Recent Changes to Supplemental Medications: no Effectiveness: TBD Most Recent HCV Viral Load: TBD Undetectable RVR4 Labs: TBD Educational information or adherence tools provided? Yes HCV therapy adherence: Yes HCV treatment response: Yes Patient experienced change in condition that affects treatment: no Patient's goals: Patient's specific desired goal: SVR12 Measured by: HepC viral load 12 weeks post-treatment Time-frame to meet goal: 8 weeks of treatment + 12 weeks post-treatment to assess Is the patient on track to achieve goals of therapy? Yes Expected Outcome: SVR12 Plan of Care Reviewed and Approved by Patient: Yes Did Care Plan Change? No Monitoring requirements for prescribed medication: Monitor HepC viral load at week 4, end of treatment, 3 and 6 months post-treatment Monitor adherence, tolerability, and efficacy Interventions (if applicable): No n/a Additional care/services needed: no Pharmacist Follow-up needed: Yes Informed patient of specialty pharmacy services: Yes -Patient received welcome packet: Yes Date received: 02/01/18 Delivery Method: mail -Patient received and returned Rights & Responsibiliites: Yes received, not returned Date received: 02/01/18 pt received, he confirmed receipt on 02/07 Delivery Method: mail -Patient is aware a [...] Patient Satisfaction with Therapy: yes - Zack is satisfied with the treatment thus far. Patient understands no changes to current drug regimen were made at the appointment and that [facility] isproviding recommendations (summary located at top of note) for provider review and follow up. Yaquelin Lagunas RPH 02/07/18 4:33 PM documented in this encounter Plan of Treatment Not on file documented as of this encounter Goals Goal Patient Goal Type Associated Problems Recent Progress Patient-Stated? Author [facility] Medication Compliance and Understanding Patient Facing Action Plan No Yaquelin Hutton RPH Note: SVR12 through treatment with Mavyret. documented as of this encounter Visit Diagnoses Not on filedocumented in this encounter Care Teams Living Advisor Relationship Specialty Start Date End Date Wendi Singh MD [address] [place] [id number] PCP - General Family Medicine 12/11/14 documented as of this encounter
--- OUTSIDE RECORDS SUMMARY | 2023-09-07 12:23 | XMS_ITS | Encounter Summary ---
[place] [address] Care Team Providers Care Facilities Technician Name Role Phone Wendi Singh MD Primary Care Provider [phone] Reason for Visit * Reason Comments Medication Management Encounter Details Date Type Department Care Team (Late st Contact Info) Description 03/23/2018 Specialty [place] [address] Yaquelin Hutton Del Social History Tobacco Use [...] Progress Notes * Yaquelin Lagunas RPH - 03/23/2018 2:45 PM EST Clinical Management Plan: Transfer of Care/Discharge Specialty Services Specialty Pharmacy Consultation; Yaquelin Lagunas Del Comprehensive Medication Management (CMM) Zack Langley [address] [facility] [address] Telephone Information: Work Phone Not on file. Summary: Zack was contacted for end of treatment follow-up regarding treatment with Mavyret. He reports he has one week of doses left which corresponds with perfect adherence. He does not report any changes in medications, allergies, or medical conditions. He has been swapping out his razor, toothbrush, and nail clippers throughout the treatment. He was happy that his viral load had decreased to <15IU/ml although still detected. He knows to get labs drawn again after he takes his last dose and 3 and6 months post-treatment. This concludes the specialty pharmacy's clinical follow-up schedule with the patient. Is the patient transferring services to a different Specialty Pharmacy or discontinuing the medication? Discontinuing medication completion of treatment Medication: Mavyret Reason for discontinuation or transfer: completion of treatment Approximate date of discontinuation or transfer: 03/23/18 discontinued from Specialty Pharmacy services; Patient will finish treatment 03/30/18 Patient's response to therapy: detectable but <15IU/ml at week 4 labs; EOT labs to follow Summary of services provided by [facility]: initial pharmacist consult, day 3 follow-up, refill reminder and follow-up, end of treatment follow-up Summary of on-going needs: Patient will need to have labs repeated as directed by clinic. Referral for additional services (if applicable): no, n/a Instructions provided to patient about discharge/transfer: yes - patient aware this concludes our follow-up with him Provider aware of discontinuation or transfer: yes Patient understands no changes to current drug regimen were made at the appointment and that [facility] isproviding recommendations (summary located at top of note) for provider review and follow up. Yaquelin Lagunas RPH 03/23/18 2:45 PM documented in this encounter Plan of Treatment Not on file documented as of this encounter Goals Goal Patient Goal Type Associated Problems Recent Progress Patient-Stated? Author Home Medication Compliance and Understanding Patient Facing Action Plan No Yaquelin Hutton RPH Note: SVR12 through treatment with Mavyret. documented as of this encounter Visit Diagnoses Not on filedocumented in this encounter Care Teams Facilities Technician Relationship Specialty Start Date End Date Wendi Singh MD [address] [place] [id number] PCP - General Family Medicine 12/11/14 documented as of this encounter
--- OUTSIDE RECORDS SUMMARY | 2023-09-07 12:23 | XMS_ITS | Encounter Summary ---
[facility] Organization [facility] [place] [address] Care Team Providers Care Gaming Cage Cashier Name Role Phone Ashley Calixto MD Primary Care Provider [phone] Encounter Details Date Type Department Care Team (Late st Contact Info) Description 06/05/2014 12:30 PM EDT Follow-Up Occupational Therapy at [address] [id number] Bertin Gamez, [facility] [place] [address] Mihir Herrera MD [facility] ORTHOPAEDIC SURGERY [place] [address] S/P total knee arthroplasty, left Discharge Disposition: [...] as of this encounter Progress Notes * Bertin Gamez, OT - 06/06/2014 5:34 PM EDT Images from the original note were not included. FUNCTIONAL CAPACITY EVALUATION of Mr. Zack Langley REQUESTED BY Dr. Mihir Herrera [facility] department of o [address] [place] [address] PREPARED BY Bertin Gamez [id number] [place] [address] P: [phone] ASSESSED 06/05/2014 TABLE OF CONTENTS Summary Report 1 Client Profile 1 Standardized Testing 1 Physical Effort Testing 1 Reliability of Pain And Disability Reports Testing 1 Dexterity Testing 1 Recreation Clerk Strength and Handling Testing 1 Fitness Testing 1 Mobility Testing 1 Strength Testing 1 Sustained Activity and Positional Tolerances 1 Musculoskeletal Evaluation 1 Additional Information 1 FUNCTIONAL CAPACITY EVALUATION Summary ReportSUMMARY REPORT Client: Mr. Zack Langley Date of service: 06/05/2014 Evaluation Time 3 hours 54 minutes 16 units physical performance tests and measures Diagnosis: left knee osteoarthritic pain s/p arthroplasty ICD9 719.46 Age at time of evaluation: 43 Referred by: Dr. Mihir Herrera Reasons for Referral Mr. Langley was referred to this facility to answer the following questions about his current work/functional ability: 1. Did Mr. Langley provide high levels of physical effort through-out the testing day? 2. Are Mr. Antonios reports of pain and disability reliable? If not reliable, is there a pattern to lifj-ozvr-qnhvlnel reports? 3. What are Mr. Antonios physical work tolerances in Department of Labor terminology to assist with employment planning? Mr. Langley underwent a functional capacity evaluation on 06/05/2014. Following an intake interview, a series of standardized tests was conducted to ensure the client's safety for testing, to determine his level of participation in the testing process and to answer the referral questions. A summaryof the findings of this evaluation is presented here; details of the evaluation follow in the body of the report. Physical Effort Findings Overall test findings, in combination with clinical observations, suggest the presence of high levels of physical effort on Mr. Langley's behalf. Reliability of Pain and Disability Reports Findings Overall test findings, in combination with clinical observations, suggest that considerable question should be drawn to the reliability and accuracy of Mr. Langley's reports of disability. He underestimated all his abilities reporting later in the assessment I am surprised at how poorly I am doing. I thought I would have the ability to lift a full bundle of shingles. He was reliable in his reports of pain. Physical Abilities Demonstrated Functional Tolerance Position Static Standing 26 minutes at most Dynamic Standing 37 minutes at most Walking completed 7 minutes of walking at 1.7 MPH Sitting 1 hour 15 minutes consecutive Weight/Force Lifting Occasional floor to knuckle 43 lbs Lifting Occasional knuckle to shoulder 33 lbs Lifting occasional shoulder to overhead 43 lbs Carrying Occasional carry 30 feet 43 lbs Pushing Occasional initial push force 44 lbs with sustained force 38 lbs Pulling Occasional initial pull force 40 lbs with sustained force 37 lbs Agility Climbing climbed one flight of stairs but was fatigued by this point in the assessment such that heimmediately exceeded safe heart rate Balancing no balance deficits observed Stooping Initially tolerated 26 minutes but this declined to 5 minutes after multiple attempts Crouching can attain but unable to sustain this position Crawling Was able to get onto knees but unable to bear substantial weight through left knee enough to crawl or shift his weight Twisting/Spinal Rotation no deficits observed Prolonged Neck Positioning no deficits observed Dexterity Reaching Forward Limited to 26 minutes at most decreasing to 5 minutes after multiple attempts Handling functional as seen with material handling Fingering Below first percentile for all coordination testing Above-shoulder Work tolerated 6 minutes at most Potential: Mr. Dowell has the potential of increasing his endurance to a light physical demand level into the medium range with a work conditioning type program and guidance for increasing his home activities. Summary of Findings The below findings were based on an assessment of the level of physical activity Mr. Langley performed, the way he performed them, statements made during the evaluation, and observations made. It needs to be remembered that the evaluation occurs over a relatively short period of time and is a snapshot of the person's abilities. Mr. Langley's lifting performance is at a light demand level into the medium range occasionally lifting 43 lbs floor to knuckle, 33lbs knuckle to shoulder, 43 lbs overhead, and carrying 43 lbs 30 ft.His endurance was limited needing to pace all material handling activity to limit his heart rate from exceeding a safe maximum. The Modified Domenico Treadmill protocol was attempted for which predictions could not be made considering his heart rate again exceeded safe levels. Stairs needed to be stopped for this same reason. Positional tolerances were affected by endurance issues and back pain withstooping limited to 26 minutes declining to 5 minutes after multiple attempts. His coordination while attempting to sustain these positions was below first percentile. As future employment is considered he will need to be limited to sedentary into the light physical demand level range work where hecan ideally change positions as needed. 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 4 Mr. Langley would benefit from a work conditioning program similar to the one at [facility] two hours per day three days per week. 5 Mr. Langley would benefit from Vocational Rehabilitation services. The results of this evaluation were reviewed with Mr. Langley at the conclusion of the evaluation. This concludes a summary of the findings of the evaluation of Mr. Langley. Details of test results and other supporting documentation may be found on the following pages. Thank you for your referral of Mr. Langley. Signed, Bertin Gamez , OT/L [facility] [id number] [place] [address] P: [phone] FUNCTIONAL CAPACITY EVALUATION SUPPORTING DOCUMENTATION Client ProfileCLIENT PROFILE The client, Mr. Langley, signed the Consent to Evaluate form prior to participating in the evaluation. The following information was obtained during the interview: Date of 1970 Height 71 in Weight 277 lb Hand Dominance Right Mr. Langley's sitting resting heart rate was 108 beats per minute. Medical History Mr. Langley indicates the following medical history: ??? Wear Glasses: Reading ??? Joint Injury/Pain ??? Blood Diseases ??? Diabetes ??? Drink Alcohol: 1 Drinks Per Week ??? Trouble Sleeping ??? Smoker/Ex-Smoker: 1/2 Pack(s) of Cigarettes/Day Mr. Langley also provides the following medical history and medication information: Area Description Prescription Medications metformin, pravastatin, saboxone, prinzide Worker's Narrative average day He wakes up at 5:30 and gets to bed by 11PM He spends his day watching his one and three year old boys and playing with them. He spends 50% of his day sitting as he watches them. Home Environment Mr. Langley's home environment is as follows: Resides With Partner, 2 children Type of Residence Apartment, Multi Level Education Completed GED Mr. Langley enjoys/enjoyed the following hobbies: fishing and hunting He has worked alot of hours all his life my side jobs were my fun Reported Functional Tolerances Mr. Langley reports his functional tolerances as follows: Client's Estimate of Maximum Tolerance Limited By Position Static Standing None Reported No reported limitation Dynamic Standing 2 hours left knee pain Walking no deficits on flat ground I really have not done alot of walking because its winter now Weight/Force Lifting floor to knuckle 80 lbs swelling and low pain level in left knee Lifting no limitations with waist to overhead Carrying 80 lbs swelling and low pain level in left knee Pushing no limitations for a short period of time Pulling no limitations to be honest with you I have only been exercising and have not really done a lot functionally with my knee Agility Climbing can do 3-4 flights in a day When I do this much though my knee hurts at night Balancing None Reported No reported limitation Stooping None Reported No reported limitation Crouching can attain this position but unable to sustain it Knee pain and weakness Crawling can crawl but knee cap hurts so avoids this Knee pain and weakness Twisting/Spinal Rotation None Reported No reported limitation Low-Level Work limited if kneeling I would be slow and need knee pads. Unsure if he can bend to thefloor from standing for any length of time. Prolonged Neck Positioning None Reported No reported limitation Exposure Impact/Jarring has some difficulty tolerating car vibrations I road in the back seat on the way home from [place] because I needed to keep my knee straight and could not tolerate the bumps?? Client's Description of Injury He was carrying a metal plank with 4 other guys while at work and he heard a pop in his back and knee. Pain increased for a week???s period to the extent he could not walk. He kept working for a weekand then was out for a month as he worked with physical therapy. He returned to work, lasted two weeks, and he was unable to tolerate pain any longer with going up and down ladders. He has not been back to work since then. He had arthroscopic surgery on his left meniscal tear back in 2011 and a left total knee replacement 12/02/13. He had physical therapy after each surgery but is now continuing with his home exercise program on his own. He is here today for the purposes of assisting with employment planning. He reports injuring his back at the same time which has acted up some recently as he is trying to increase his activity level. Client's Work-Related Goals Mr. 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 This type of testing is used to evaluate whether or not evaluation results accurately represent a client's physical abilities. If a client does not partake in his testing day with high levels of physical effort, an frame and scrap crusher cannot be confident that observed performances represent current abilities. Five-Position Recreation Clerk Testing Mr. Langley underwent a formal screening procedure to query maximum voluntary effort during testing. This test uses the hand dynamometer to measure isometric force generated by the hand. The hand dynamometer is used to present ten maximum gripping measurements, each repeated three times. Studies indicate that out of 10 coefficients of variation calculated, no more than two will exceed experimentally derived cut-points if the individual is demonstrating maximum voluntary effort. The results (in pounds) of Mr. Langley's testing are presented below: Recreation Clerk Span Test 1 Test 2 Test 3 Dom Non Dom Non Dom Non 1 54 37 33 38 39 53 2 110 79 93 84 90 84 3 105 92 95 84 98 98 4 98 67 98 72 98 75 5 78 66 79 65 76 65 Recreation Clerk Span Coefficient of Variation Exceed Cut Point? Dom Non Dom Non 1 21.03 17.15 Yes Yes 2 9.02 2.86 No No 3 4.22 6.28 No No 4 0 4.63 No No 5 1.61 0.72 No No Un-Impaired Dominant Upper Extremity Chart Un-Impaired Non-Dominant Upper Extremity Chart Analysis of the client's scores demonstrates 2 coefficients of variation above the permissible cut-points. As a total of two scores are allowed above the cut- points, this is suggestive of maximum voluntary effort during testing. During the cargo tank mechanic strength test, the client was noted to show no signs of physical discomfort. Mr. Langley was observed to demonstrate the following signs of competitive test performance during cargo tank mechanic strength testing: Muscular recruitment; Requesting to continue when advised to stop; Increased compensatory postures to improve force Recreation Clerk Curve Analysis A second method of screening for the presence of maximum voluntary effort relates to the analysis of score distribution. If an evaluee is providing maximum effort on the hand dynamometer, a gonzalez curve pattern of score distribution is expected. Such a gonzalez curve pattern was observed in Mr. Langley'she case for his right hand and was present forhis left hand. This is suggestive of maximum voluntary effort on the right and of maximum voluntaryeffort on the left. A second method of using gonzalez curve analysis to gauge a client's level of physical effort relates to analysis of standard deviation. Clinical studies indicate that if a person is partaking in testingwith full physical effort, a specific pattern of score distribution is expected. Right Upper Extremity: Mr. Maurer right hand cargo tank mechanic scores, produced a well distributed gonzalez curve(S.D. = 21.98). Clinical studies suggest this standard deviation to be indicative of a high level of effort. Left Upper Extremity: Mr. Maurer left hand cargo tank mechanic scores, produced a well distributed gonzalez curve (S.D. = 16.59). Clinical studies suggest this standard deviation to be indicative of a high level of effort. Competitive Test Performance?? [place]-trained functional capacity evaluators are trained to look for examples of competitive test performance (CTP) in persons who participate in tests which entail high levels of physical effort.Such examples may include (but are not exclusive to): starting tests prior to the uttered START command, continuing to work after the uttered STOP command, asking for extra practice time, asking to repeat a slow trial, postural accommodation to improve performance, etc. In Mr. Langley'she case, such examples were abundant throughout his testing day. Heart Rate Analysis To further gauge Mr. Antonios overall level of physical effort, clinical heart rate analysis was used throughout his testing day. [place]-trained work capacity evaluators are trained to look for heart rate measures nearing or exceeding aerobic target levels in individuals providing high levels ofeffort on repetitive, large muscle group activity. Test Standing Resting HR Maximum HR % ? Isoinertial Lift 102 bpm 156 bpm 53% PILE Lumbar 102 bpm 155 bpm 52% Carrying 102 bpm 148 bpm 45% Pushing 102 bpm 156 bpm 53% Pulling 102 bpm 156 bpm 53% Modified Domenico Treadmill 102 bpm Overall heart rate analysis suggest full effort on Mr. Langley's behalf. Clinical Consistency Richelle-trained functional capacity evaluators are trained to look for high levels of clinical consistency in clients who partake in testing which entails full physical effort. Persons providing full physical effort should remain consistent in functional presentation despite multi-hour tests underdistraction- based clinical testing situations. During 3 hours 54 minutes 49 seconds of constant distraction-based clinical testing, Mr. Langley's performance remained clinically consistent, suggestive of good consistent effort on his behalf. Reliability of Pain And Disability Reports TestingRELIABILITY OF PAIN AND DISABILITY REPORTS TESTING Reliability of Pain and Disability Report testing is comprised of a battery of tests designed to better assess the dependability and accuracy of the client's subjective reports of pain and/or disability. The battery includes tests which evaluate the presence or absence of non-organic findings (findings that have more to do with illness behavior than underlying physical disease) as well as tests which compare a client's subjective reports to what he is actually capable of doing through the use of distraction based testing and observations of ability/disability. Pain Scales Various pain scales were implemented with Mr. Langley to evaluate both the consistency and reliability of his subjective (verbal) reports. Subjective ratings of pain matched well with distraction-based clinical observations. Subjective Pain Levels Mr. Langley states that he is experiencing pain in the areas indicated in the following table (these are based on the 0-10+ Functional Pain Rating Scale where 0 represents no pain and 10+ represents emergency pain warranting immediate emergency department care or hospitalization): Pre-Test Pain Post-Test Pain Left knee under the knee cap 2 3 lower back into sacrum 0 4 Pain Assessment/Questionnaires Mr. Langley completed a number of standard assessment questionnaires to assess the presence and impact of Chronic Pain Syndrome. These questionnaires have been published in peer-reviewed journals andare widely used in the industrial rehabilitation field. Questionnaire/Assessment Score Interpretation Oswestry Low Back Disability Questionnaire 26 % Moderate disability The Lower extremity Functional Scale He is performing at 66% of his maximum due to his lower extremity issue The Knee and Osteoarthritis Outcome Score pain 61, symptoms 64, ADLs 69, sports 35, quality of life31 percent of his maximum PACT Spinal Function Sort The PACT Spinal Function Sort is used to quantify an individual's perception of his ability to perform work tasks. The responses on this instrument can be used to test the reliability/accuracy of a client's subjective reports of ability and limitation. Mr. Antonios ratings on the Spinal Function Sort were as follows: Rating of Perceived Capacity (RPC) 155 Perceived DOL Rating Light Norm vs. Healthy Employed 25%, Below Average Norm vs. Injured Unemployed 85%, Superior Results of reliability check testing indicated a reliable profile. The client perceives himself as meeting the physical requirements for Light strength work, according to Department of Labor standards. Dexterity TestingDEXTERITY TESTING Purdue Pegboard Test The Purdue Pegboard Test was used to assess Mr. Antonios ability to use his hands in a coordinatedand efficient manner. The following results were found: Score Percentile Right Hand (30 Seconds) 11 1 Left Hand (30 Seconds) 11 1 Both Hands (30 Seconds) 8 < 1 Assembly (60 Seconds) 22 1 Mr. Langley demonstrated the following signs of competitive test performance during the Purdue Pegboard Test: Attempting to start prior to start command Khoury Small Parts Dexterity Test The [employer] Dexterity Test was used to measure Mr. Antonios fine eye-hand coordination and ability to use his hands to perform assembly tasks using small tools and small parts. The following results were found: Time in Seconds Percentile Part Two - Screws 537 40 The client exhibited the following signs of physical discomfort during the [employer] Dexterity Test: Shifting within chair Mr. Langley demonstrated the following signs of competitive test performance during the [employer] Dexterity Test: Quick correction following error; Voiced exasperation reported need to stand up due to knee stiffness. Complete [place] Dexterity Test The Complete [place] Dexterity Test was used to assess Mr. Antonios ability to use his hands in a coordinated and efficient manner and to assess medium arm and hand dexterity. The following results were found: Score Total Seconds Percentile Placing 219 1 Turning 169 3-5 One Hand Turning and Placing 293 1 Two Hand Turning and Placing 187 1 Non-Dominant Placing 223 Non-Dominant One Hand Turning and Placing 334 The client exhibited the following signs of physical discomfort during the Complete [place] Dexterity Test: Increased lean on table; Stretching low back after 21 minutes of stooping needed to sit due to back pain 7/10 sweating observed started the Valpar 8 Simulated assembly immediately after MRM to further challenge stooping with medium level dexterity 5 minutes: 43 pieces 10 minutes 81 pieces 15 minutes 108 pieces 20 minutes 147 pieces comments: stopped at 8 minutes in reporting lower back pain again and need to sit for about 1 minute. Needed to continue leaning on the Valpar with one hand intermittently while using the other hand for assembly. Stopped every 3-4 minutes and leaned forward with both arms supporting him for about a10 second period to manage back pain. By the end needing to intermittently stop every minute to straighten up He head sweat dripping off his nose by the end of this. At this point I thought I was doing better than I am. It makes me mad Results for Valpar 8: below first percentile compared to air force norms Recreation Clerk Strength and Handling TestingGRIP STRENGTH AND HANDLING TESTING Five-Position Recreation Clerk Testing As a function of hand dynamometer testing, information about the client's cargo tank mechanic strength was collected. Dominant Non-Dominant Client Norm Group Client Norm Group 97.67 109.9 82.33 100.8 Results are in pounds. As can be seen from this table, the client demonstrates the dominant hand asbeing similar to the normative group. His non-dominant hand demonstrates as being similar to the normative group. During the cargo tank mechanic strength test, the client was noted to show no signs of physical discomfort. Mr. Langley was observed to demonstrate the following signs of competitive test performance during cargo tank mechanic strength testing: Muscular recruitment; Requesting to continue when advised to stop; Increased compensatory postures to improve force Fitness TestingFITNESS TESTING Cardiovascular Testing Cardiovascular endurance is the ability of the heart, lungs and blood vessels to deliver oxygen to working muscles and tissues, as well as the ability of those muscles and tissues to utilize that oxygen. Cardiovascular endurance is also frequently called cardio-respiratory endurance, cardiovascularfitness, aerobic capacity, aerobic fitness or is sometimes more broadly termed endurance, although endurance may also refer to the ability of the muscle to do repeated work without fatigue. The following tests have been administered with the objective of finding Mr. Langley's full-day METlevel. A MET is the resting metabolic rate expressed in oxygen uptake or energy expenditure. If we say a physical activity has an equivalent of 6 METs, we mean that the energy demands of the activity are 6 times that of the resting state energy demands. The MET is very useful as it accounts for differences in body weight without special computations. Prior to testing, the client's maximum safe heart rate (220 - age x 85%) was calculated. Mr. Langley'she heart rate was closely monitored throughout cardio testing to ensure that he did not exceed thismaximum safe heart rate. Modified Domenico Treadmill Test Richelle-trained evaluators use the Modified Domenico protocol as a sub-max exercise test, meaning they do not take the client to the maximum point of exhaustion. The Modified Domenico protocol uses nine specific exercise levels that combine treadmill speed and incline to yield nine corresponding MET levels. The object of this exercise is to have the client achieve a steady state heart rate (SSHR) while exercising at a predetermined workload. (The moment a subject starts to work, the heart rate immediately increases. At the end of a minute of work, the heart rate is still increasing. Assuming that workload does not increase, it takes about 3 minutes of work before the heart rate stabilizes. This plateau is called the steady-state heart rate.) Prior to commencing the test, the client's standing resting heart rate was 102 beats per minute. His results are presented below: Performance Results: 1st Acceptable Administration 2nd Acceptable Administration Stage 0 0.5 Speed miles/hr 1.7 1.7 Grade (%) 0 5 Duration (minutes) 3 3 MET Level 1.7 2.9 VO2 (mL kg-1 min-1) 5.95 Two-Minute Heart Rate 148 151 Three-Minute Heart Rate 138 Four-Minute Heart Rate 138 Steady State Heart Rate? Yes Projected MET Level Results: needed to stop this test due to HR increasing beyond safe level after 7 minutes of treadmill mobility ending at 1.7 mph 5% grade. He did not complete .5 stage of this test. Mobility TestingMOBILITY TESTING Climbing and Descending Stairs Mr. Langley was observed to climb and descend 1 floor of 12 steps. He completed this without a break. The client demonstrated no signs of physical discomfort during the stairs test. Mr. Langley demonstrated the following signs of competitive test performance: Voiced frustration at poor performance, dyspnea, sweating At the top of first flight he was at 156 BPM and despite standing in place for 2 minutes leaning against the rail his heart rate decreased to 148 BPM so this activity was discontinued. Strength TestingSTRENGTH TESTING Pushing Mr. Langley was observed to push a sled with 100lbs over a level terrain. The results are presentedbelow: Handle Height Distance Force Percentile Rating Initial 37(in) 25(ft) 49(lbsf) <10 Below Average Sustained 37(in) 25(ft) 41(lbsf) 10 Below Average Mr. Langley's pain rating for this test was 3/ 10. The client was noted to show no signs of physical discomfort. The client exhibited the following signs of competitive test performance during the test: Requesting to continue when advised to stop, sweating Standing Resting Heart Rate 102 bpm Maximum Heart Rate 156 bpm The test was terminated due to: heart rate increased over safe level despite assisting him with pacing activity Pulling Mr. Langley was observed to pull a sled with 100lbs over a level terrain. The results are presentedbelow: Handle Height Distance Force Percentile Rating Initial 37(in) 25(ft) 42(lbsf) <10 Below Average Sustained 37(in) 25(ft) 39(lbsf) 10 Below Average Mr. Maurer pain rating for this test was 3/ 10. The client was noted to show no signs of physical discomfort. The client exhibited the following signs of competitive test performance during the test: Requesting to continue when advised to stop Standing Resting Heart Rate 102 bpm Maximum Heart Rate 156 bpm The test was terminated due to: limited cardiovascular status exceeding safe heart rate Carrying Mr. Langley was observed to carry a loaded box weighing 53lbs over a level terrain. The results arepresented below: Handle Height Distance Weight Percentile Rating 31(in) 28(ft) 53(lbs) 10 Below Average The client demonstrated the following signs of physical discomfort: Stretching low back; Facial grimace; slight antalgic gait with increased weight. He was observed tohave biomechanical changes hyperextending his back with carrying heavier weights Standing Resting Heart Rate 102 bpm Maximum Heart Rate 148 bpm Lifting Isoinertial Lifting Evaluation Mr. Langley completed the Maximum Isoinertial Lifting Evaluation during the evaluation process. Prior to testing, the client's heart rate was found to be 102 bpm and his blood pressure was / mm Hg. His functional pain rating was 3/10. The results for the 13 inch width (center of body to hands) of this evaluation are as follows: Test Max. Wt Safe Wt Heart Rate Pain Reason for Stopping Body Mechanics %ile Floor to Knuckle 53 43 156 4 left knee week coming out Good 10 Knuckle to Shoulder 43 33 148 4 upper extremity strength Good < 10 Shoulder to Overhead 53 43 148 4 lower back pain Good 18 Comments Knuckle to Shoulder: dyspnea and hyperextension of back The client's post-test heart rate was 120 bpm, his post-test blood pressure was 105/75 mm Hg and his post-test pain rating was 4/10. The client demonstrated the following signs of physical discomfort during the test: Holding and massaging low back; Stretching low back; Requesting to sit; Facial grimace The client exhibited the following signs of competitive test performance during the test: Requesting to continue when advised to stop; Holding breath; Wiping hands/requesting towel, dyspnea, sweating The test was terminated due to: Limited strength and pain and exceeding safe HR at some points Progressive Isoinertial Lifting Evaluation (P.I.L.E.) Mr. Maurer frequent lifting ability was tested by means of the Progressive Isoinertial Lifting Evaluation (PILE) (Jordan et al, 1988). The results of this evaluation are a reflection of the amount of weight the client will be able to lift on a frequent basis, that is between 34% and 66% of the work shift. The evaluation involves the lifting of a progressively weighted box through four lifts in a period of 20 seconds. There are two components to the test, namely Lumbar (lifting from 6 inches to 36 inches and back to 6 inches) and Cervical (lifting from 36 inches to 60 inches and back to 36 inches). The results are presented in three forms: Maximum acceptable weight that the client demonstrated he could lift. Total Work expended during the lift test (ft. lbs.). Total Power expended during the lift test (ft. lbs.sec-1). Lift Test Max. Wt(lbs.) Max. Accept. Wt (lbs.) Total Work (ft lbs.) Total Power (ft.lbs/sec-1) Max Heart Rate % Normal vs. Normal Workers % Normal vs. Injured Work Lumbar (6-36-6) 33 23 720 12.2 155 8.8 17.5 Cervical (36-60-36) 33 23 576 9.76 138 13 25.4 Lumbar Component The following observations were made regarding the client's body mechanics: Fair. The client demonstrated the following signs of physical discomfort during the test: Increased lean on nearby surfaces; Holding and massaging low back; Stretching low back; Facial grimace The test was terminated due to: Heart rate exceeds maximum allowable aerobic target Cervical Component The client demonstrated the following signs of physical discomfort during the test: Holding and massaging low back; Stretching low back The client exhibited the following signs of competitive test performance during the test: attempting using momentum at heaviest weight Sustained Activity and Positional TolerancesSUSTAINED ACTIVITY AND POSITIONAL TOLERANCES During a total evaluation time of 3 hours 54 minutes 49 seconds, Mr. Langley's total sitting, standing, walking, and other position and combinations of positions time was recorded. His results from this continuous observation and recording are presented as follows: Total Time (Hrs. and Min.) Longest Duration Sitting 01:55:16 01:15:40 Standing 01:53:06 00:37:15 Reaching Above Shoulder 00:06:49 00:06:49 Total Time for Evaluation 03:54:49 Musculoskeletal EvaluationMUSCULOSKELETAL EVALUATION Upper extremity, neck, and trunk mobility is WFL. He was able to complete a full squat with extensive need for external surface to weight bear on with his hand to stand back up. He was able to complete a straight knee bend 5 inches from floor, walk on heels and toes without deficit Lower Extremities Hip Flexion Left Side Right Side FPS Resisted Within Functional Limits Within Functional Limits Abduction Left Side Right Side FPS Resisted Within Functional Limits Within Functional Limits Knee Flexion Left Side Right Side FPS Active [id number] Limited Ability: 130 Limited Ability: 130 Left Side Right Side FPS Resisted Painful and Weak Ability: 4-/5 Within Functional Limits Extension Left Side Right Side FPS Active [id number] Limited Ability: -2 Limited Ability: 0 Left Side Right Side FPS Resisted Weak Ability: 4-/5 Within Functional Limits Spine A musculoskeletal spine assessment was performed on Mr. Langley prior to any functional testing. The assessment results are as follows: Trunk Distance (cm) Pain Present? Comment Trunk Flexion 10 cm Left Side Right Side Rotation Within Functional Limits Within Functional Limits Lumbar Backward Bending Results FPS Trunk Backward Bending Within Functional Limits Circumference/Volumetric Measurements Measurements were taken to assess swelling in the extremities. This was performed on Mr. Langley prior to any functional testing. The assessment results are as follows: Circumferential Measurements Knee Results Location Right Left 5 cm Above Knee Crease 48 46 At Knee Crease 47 42 5 cm Below Knee Crease 41 39 Comments: at end left knee same measurements as beginning. Additional InformationADDITIONAL INFORMATION The Physical Demand Characteristics of Work chart is appended here for your reference. PHYSICAL DEMAND CHARACTERISTICS OF WORK 1992 Selwyn Peoples, PhD PHYSICAL DEMAND LEVEL OCCASIONAL 0 - 33% of the workday FREQUENT 34 - 66% of the workday CONSTANT 67 - 100% of the workday Typical Energy Required SEDENTARY 10 lbs. Negligible Negligible 1.5 - 2.1 METS LIGHT 20lbs. 10 lbs Negligible 2.2 - 3.5 METS MEDIUM 20 to 50 lbs. 10 to 25 lbs. 10 lbs 3.6 - 6.3 METS HEAVY 50 to 100 lbs. 25 to 50 lbs. 10 to 20 lbs 6.4 - 7.5 METS VERY HEAVY Over 100 lbs. Over 50 lbs. Over 20 lbs Over 7.5 METS --- End Of Client Evaluation Report for Mr. Zack Langley --- Version 09/26/2013 - v3.5 Richelle [employer]GU[employer] Software Copyright?? 2013 documented in this encounter Plan of Treatment Not on file documented as of this encounter Visit Diagnoses Diagnosis S/P total knee arthroplasty, left documented in this encounter Care Teams Gaming Cage Cashier Relationship Specialty Start Date End Date Ashley Calixto MD [address] [place] [address] PCP - General 12/21/11 12/10/14 documented as of this encounter
--- OUTSIDE RECORDS SUMMARY | 2023-09-07 12:24 | XMS_ITS | Encounter Summary ---
Author Organization [facility] [place] [address] Care Team Providers Care Therapeutic Sales Specialist Name Role Phone Ashley Calixto MD Primary Care Provider [phone] Reason for Visit * Reason Onset Date Comments Medication Refill 12/10/2013 Encounter Details Date Type Department Care Team (Late st Contact Info) Description 12/10/2013 Refill [place] [address] Mihir Herrera MD [facility] [place] [address] Knee joint replacement by other means (Primary Dx) Social History Tobacco Use Types Packs/Day Years Used Date Smoking Tobacco: Former Cigarettes 0 11/04/1988 - 11/04/2013 Smokeless Tobacco: Never Comments:stopped on the , [...] Telephone Encounter - Meghana Gleason RN - 12/10/2013 1:14 PM EDT Prescription for first leg of Mr. Dowell's taper overnight mailed to him per request. * Telephone Encounter - Meghana Gleason RN - 12/10/2013 12:55 PM EDT Phone call for refill of pain medication oxycodone 10 mg tablets --he is currently using 3 tablets every four hours. He visited the pain clinic at [facility] to discuss pain management in this post operative period. Pain Management would like oxycodone 10 mg tablets - currently using three up to five times daily. She would like him to have a prescription for amitriptyline 10-20 mg po at for sleep. Continue for one week. Plan will be to then decrease to 20 mg five times daily x 7 days. Next taper is to 20 mg 4 times daily for 6 days. Following taper is to 10 mg 4x daily for 6 days. * Telephone Encounter - Meghana Gleason RN - 12/10/2013 12:30 PM EDT Phone call to Ms. Maurer - no answer at this time - message left requesting call back. * Telephone Encounter - Charla Rodarte - 12/10/2013 11:40 AM EDT Person calling? Kathya Ingram What medication are you refilling? Oxycodone and amitriptyline Would you like this called into a pharmacy? If so, which one? [facility] in [place] If not, are you coming to pick this up? Or, would you like this mailed to your home. Best number to reach person calling? [phone] patient went to pain management this am, there was confusion on whose to prescribe pain meds, heis in between drs right now, and wont meet new dr till 12/18/2013. Patient only has 8 hr supply left. The nurse will call you when your prescription is ready, please allow up to 72 hrs for processing. documented in this encounter Plan of Treatment Not on file documented as of this encounter Visit Diagnoses Diagnosis Knee joint replacement by other means- Primary documented in this encounter Care Teams Therapeutic Sales Specialist Relationship Specialty Start Date End Date Ashley Calixto MD [address] [place] [address] PCP - General 12/21/11 12/10/14 documented as of this encounter
--- OUTSIDE RECORDS SUMMARY | 2023-09-07 12:24 | XMS_ITS | Encounter Summary ---
[place] [address] Care Team Providers Care Construction Project Assistant Name Role Phone Ashley Calixto MD Primary Care Provider [phone] Encounter Details Date Type Department Care Team (Latest Contact Info) Description 12/16/2013 Anti-Coag Telephone Visit [place] [id number] Meghana Gleason, RN S/P total knee arthroplasty, left Social History Tobacco Use Types Packs/Day Years [...] as of this encounter Progress Notes * Meghana Gleason RN - 12/16/2013 10:54 AM EDT Anticoagulation Therapy Nurse Visit Zack Dowell 1970 Dr. Herrera Indication: DVT Prophylaxis S/P Joint Replacement Duration of Treatment: 28 days ends: 12/30/13 Therapeutic Range: 2.0-3.0 INR: 2.2 Drawn by: [facility] Patient presents with no signs of bleeding or bruising or signs of thromboembolic events related toprimary diagnosis above. Follow-up for re- evaluation and safety of continuing anticoagulation. Bleeding: Epistaxis Black tarry stools Gingival bleeding Increased bruising Hematuria Other: Hemoptysis x No bleeding / bruising noted Comments: Symptoms of recurring primary event: Chest pain Dyspnea Palpitations Headache Dizziness Edema Confusion Slurred speech Weakness Visual changes Tender/Red/Swollen extremities x No symptoms reported Other: Comments: Recent Medication Changes: no Comments: Have you missed any dose of Coumadin this past week? No Comments: Dietary Changes: No Comments: documented in this encounter Plan of Treatment Not on file documented as of this encounter Procedures Procedure Name Priority Date/Time Associated Diagnosis Comments EXTERNAL LAB RESULTS Routine 12/16/2013 documented in this encounter Results * (ABNORMAL) External Lab Results (12/16/2013) POC INR 2.2(Externa l Lab) 0.9 - 1.1 12/16/2013 Historical Provider CHEMISTRY ORDERAB LES documented in this encounter Visit Diagnoses Diagnosis S/P total knee arthroplasty, left documented in this encounter Care Teams Construction Project Assistant Relationship Specialty Start Date End Date Ashley Calixto MD [address] [place] [address] PCP - General 12/21/11 12/10/14 documented as of this encounter
--- OUTSIDE RECORDS SUMMARY | 2023-09-07 12:24 | XMS_ITS | Encounter Summary ---
Author Organization [facility] [place] [address] Care Team Providers Care Water Pump Operator Name Role Phone Ashley Calixto MD Primary Care Provider Reason for Visit * Reason Onset Date Comments Medication Refill 12/23/2013 Encounter Details Date Type Department Care Team (Late st Contact Info) Description 12/23/2013 Telephone [place] [address] Mihir Herrera MD [facility] [place] [address] Medication Refill Social History Tobacco Use Types Packs/Day Years [...] encounter Miscellaneous Notes * Telephone Encounter - Erica Castro RN - 12/25/2013 8:46 AM EDT To be addressed when he returns the call for the other open refill encounter related to his Oxycodone. * Telephone Encounter - Adrienne Grider - 12/23/2013 1:33 PM EDT Person calling? Ana Luisa - Patient's fiancee What medication are you refilling? WOULD LIKE TO GO BACK TO TAKING THE VALIUM, AND D/C THE AMITRIPTYLINE. SHE STATES THAT HE HAS HARDLY SLEPT IN SEVERAL DAYS, AND DID MUCH BETTER ON THE VALIUM. Would you like this called into a pharmacy? If so, which one? [facility] Best number to reach person calling? ANA LUISA IS AT WORK, BUT REQUESTED THAT WE CALL ZACK DIRECTLY [phone] The nurse will call you when your prescription is ready, please allow up to 72 hrs for processing. documented in this encounter Plan of Treatment Not on file documented as of this encounter Visit Diagnoses Not on filedocumented in this encounter Care Teams Water Pump Operator Relationship Specialty Start Date End Date Ashley Calixto MD [address] [place] [address] PCP - General 12/21/11 12/10/14 documented as of this encounter
--- OUTSIDE RECORDS SUMMARY | 2023-09-07 12:24 | XMS_ITS | Encounter Summary ---
[place] [address] Care Team Providers Care Corporate Wellness Coordinator Name Role Phone Ashley Calixto MD Primary Care Provider [phone] Encounter Details Date Type Department Care Team (Late st Contact Info) Description 12/11/2013 Orders Only [place] [address] Meghana Gleason, RN Knee joint replacement by other means (Primary [...] Primary documented in this encounter Care Teams Corporate Wellness Coordinator Relationship Specialty Start Date End Date Ashley Calixto MD [address] [place] [address] PCP - General 12/21/11 12/10/14 documented as of this encounter
--- OUTSIDE RECORDS SUMMARY | 2023-09-07 12:24 | XMS_ITS | Encounter Summary ---
Author Organization [facility] [place] [address] Care Team Providers Care Laborer Powerhouse Name Role Phone Ashley Calixto MD Primary Care Provider [phone] Encounter Details Date Type Department Care Team (Late st Contact Info) Description 11/21/2013 Orders [place] [address] Mihir Herrera MD [facility] [place] [address] Social History Tobacco Use Types Packs/Day Years [...] Procedure Name Priority Date/Time Associated Diagnosis Comments ABO/RH TYPING Routine 11/21/2013 11:50 AM EDT ANTIBODY SCREEN Routine 11/21/2013 11:50 AM EDT documented in this encounter Results * Antibody screen (11/21/2013 11:50 AM EDT) Ab Screen Interp Negative CERJERE KNAPPENNIUM Expires at [id number] on: [id number] CERJERE KNAPPENNIUM Blood specimen (specimen) 11/21/2013 11:50 AM EDT 11/21/2013 11:52 AM EDT Narrative Resulting Agency Comment Spec In Lab Mihir Herrera MD [facility]LO[facility]ANK LAB ORDER JACKIE RANDY LOVEIUM * ABO/Rh Typing (11/21/2013 11:50 AM EDT) ABORH Type O Neg RANDY LOVEIUM Blood specimen (specimen) 11/21/2013 11:50 AM EDT 11/21/2013 11:52 AM EDT Narrative Resulting Agency Comment Spec In Lab Mihir Herrera MD BLOOD BANK LAB ORDER JACKIE Performing Organization Address [facility] Co de Phone Number RANDY MORALES documented in this encounter Visit Diagnoses Not on filedocumented in this encounter Care Teams Laborer Powerhouse Relationship Specialty Start Date End Date Ashley Calixto MD [facility] [address] [place] [address] PCP - General 12/21/11 12/10/14 documented as of this encounter
--- OUTSIDE RECORDS SUMMARY | 2023-09-07 12:24 | XMS_ITS | Encounter Summary ---
Author Organization [facility] [place] [address] Care Team Providers Care Glass Lathe Operator Name Role Phone Ashley Calixto MD Primary Care Provider [phone] Reason for Visit * Reason Onset Date Comments Post Procedure Call 12/19/2013 Encounter Details Date Type Department Care Team (Late st Contact Info) Description 12/19/2013 Telephone [place] [address] Mihir Herrera MD [facility] [place] [address] Post Procedure Call Social History Tobacco Use Types Packs/Day Years [...] Telephone Encounter - Erica Castro RN - 12/19/2013 3:29 PM EDT Ok to start back on Celebrex. Discussed during anticoagulation encounter earlier today. * Telephone Encounter - Wendi Bustos - 12/19/2013 2:27 PM EDT When was your procedure? l tka Who was your surgeon? Dr Herrera What procedure did you have done? 12/02/13 What is the question you would like to ask the nurse? He has a medication question Best number to reach you # [phone] Kathya The nurse continuously monitors all messages and will return your call before the end of the day. The nurse may need to consult the surgeon about your question which may delay the return call by 24hrs. documented in this encounter Plan of Treatment Not on file documented as of this encounter Visit Diagnoses Not on filedocumented in this encounter Care Teams Glass Lathe Operator Relationship Specialty Start Date End Date Ashley Calixto MD [address] [place] [address] PCP - General 12/21/11 12/10/14 documented as of this encounter
--- OUTSIDE RECORDS SUMMARY | 2023-09-07 12:24 | XMS_ITS | Encounter Summary ---
[place] [address] Care Team Providers Care Store Stocker Name Role Phone Ashley Calixto MD Primary Care Provider [phone] Encounter Details Date Type Department Care Team (Latest Contact Info) Description 12/09/2013 Anti-Coag Telephone [place] [phone] Meghana Gleason, RN S/P total knee arthroplasty, [...] of this encounter Progress Notes * Meghana Gleason, RN - 12/09/2013 3:49 PM EDT Anticoagulation Therapy Nurse Visit Zack Dowell 1970 Dr[address] Herrera Indication: DVT Prophylaxis S/P Joint Replacement Duration of Treatment: 28 days ends: 12/30/13 Therapeutic Range: 2.0-3.0 INR: 2.1 Drawn by: [facility] Patient presents with no signs of bleeding [...] Associated Diagnosis Comments EXTERNAL LAB RESULTS Routine 12/09/2013 documented in this encounter Results * (ABNORMAL) External Lab Results (12/09/2013) POC INR 2.1(Externa l Lab) 0.9 - 1.1 12/09/2013 Historical Provider CHEMISTRY ORDERAB LES documented in this encounter Visit Diagnoses Diagnosis S/P total knee arthroplasty, left documented in this encounter Care Teams Store Stocker Relationship Specialty Start Date End Date Ashley Calixto MD [address] [place] [address] PCP - General 12/21/11 12/10/14 documented as of this encounter
--- OUTSIDE RECORDS SUMMARY | 2023-09-07 12:24 | XMS_ITS | Encounter Summary ---
[place] [address] Care Team Providers Care Caustic Strength Inspector Name Role Phone Ashley Calixto MD Primary Care Provider Encounter Details Date Type Department Care Team (Late st Contact Info) Description 11/21/2013 8:30 AM EDT Office Visit [place] [address] Social History Tobacco Use Types Packs/Day Years [...] on filedocumented in this encounter Care Teams Caustic Strength Inspector Relationship Specialty Start Date End Date Ashley Calixto MD [facility] [address] [place], [place] [id number] PCP - General 12/21/11 12/10/14 documented as of this encounter
--- OUTSIDE RECORDS SUMMARY | 2023-09-07 12:24 | XMS_ITS | Encounter Summary ---
[place] [address] Care Team Providers Care Product Controller Name Role Phone Ashley Calixto MD Primary Care Provider [phone] Encounter Details Date Type Department Care Team (Latest Contact Info) Description 12/23/2013 Anti-Coag Telephone [place] [phone] Meghana Gleason, RN S/P total knee arthroplasty, [...] Progress Notes * Meghana Gleason RN - 12/23/2013 2:01 PM EDT Anticoagulation Therapy Nurse Visit Zack Dowell 1970 Dr[address] Herrera Indication: DVT Prophylaxis S/P Joint Replacement Duration of Treatment: 28 days ends: 12/30/13 Therapeutic Range: 2.0-3.0 INR: 2.3 Drawn by: [facility] Patient presents with no signs of bleeding [...] symptoms reported Other: Comments: Recent Medication Changes: Yes Comments: Started back on his Celebrex Have you missed any dose of Coumadin this past week? No Comments: Dietary Changes: No Comments: documented in this encounter Plan of Treatment Not on file documented as of this encounter Procedures Procedure Name Priority Date/Time Associated Diagnosis Comments EXTERNAL LAB RESULTS Routine 12/23/2013 documented in this encounter Results * (ABNORMAL) External Lab Results (12/23/2013) POC INR 2.3(Externa l Lab) 0.9 - 1.1 12/23/2013 Historical Provider CHEMISTRY ORDERAB LES documented in this encounter Visit Diagnoses Diagnosis S/P total knee arthroplasty, left documented in this encounter Care Teams Product Controller Relationship Specialty Start Date End Date Ashley Calixto MD [address] [place] [address] PCP - General 12/21/11 12/10/14 documented as of this encounter
--- OUTSIDE RECORDS SUMMARY | 2023-09-07 12:24 | XMS_ITS | Encounter Summary ---
[place] [address] Care Team Providers Care Wool Washing Machine Operator Name Role Phone Ashley Calixto MD Primary Care Provider [phone] Encounter Details Date Type Department Care Team (Latest Contact Info) Description 12/06/2013 Anti-Coag Telephone [place] [phone] Erica Park RN S/P total knee arthroplasty, left Social [...] as of this encounter Progress Notes * Erica Castro RN - 12/06/2013 4:58 PM EDT Anticoagulation Therapy Nurse Visit Zack Langley 1970 Surgeon: Mihir Herrera MD Indication: DVT Prophylaxis S/P Joint Replacement Duration of Treatment: 28 days ends: 12/30/13 Therapeutic Range: 2.0-3.0 INR: 1.3 Continue Lovenox Drawn by: Renae Patient presents with no signs of bleeding [...] Associated Diagnosis Comments EXTERNAL LAB RESULTS Routine 12/06/2013 documented in this encounter Results * (ABNORMAL) External Lab Results (12/06/2013) POC INR 1.3([facility]) 0.9 - 1.1 Comment:Renae Historical Provider CHEMISTRY ORDERAB LES documented in this encounter Visit Diagnoses Diagnosis S/P total knee arthroplasty, left documented in this encounter Care Teams Wool Washing Machine Operator Relationship Specialty Start Date End Date Ashley Calixto MD [address] [place] [address] PCP - General 12/21/11 12/10/14 documented as of this encounter
--- OUTSIDE RECORDS SUMMARY | 2023-09-07 12:24 | XMS_ITS | Encounter Summary ---
[place] [address] Care Team Providers Care Director Nursing Service Name Role Phone Ashley Calixto MD Primary Care Provider [phone] Encounter Details Date Type Department Care Team (Latest Contact Info) Description 12/19/2013 Anti-Coag Telephone [place] [phone] Erica Park RN S/P total knee arthroplasty, [...] Progress Notes * Erica Castro RN - 12/19/2013 3:28 PM EDT Anticoagulation Therapy Nurse Visit Zack Dowell 1970 Dr[address] Herrera Indication: DVT Prophylaxis S/P Joint Replacement Duration of Treatment: 28 days ends: 12/30/13 Therapeutic Range: 2.0-3.0 INR: 2.0 Drawn by: [facility] Patient presents with no signs of bleeding [...] Associated Diagnosis Comments EXTERNAL LAB RESULTS Routine 12/19/2013 documented in this encounter Results * (ABNORMAL) External Lab Results (12/19/2013) POC INR 2.0([facility]) 0.9 - 1.1 Comment:Renae ROSE Historical Provider CHEMISTRY ORDERAB LES documented in this encounter Visit Diagnoses Diagnosis S/P total knee arthroplasty, left documented in this encounter Care Teams Director Nursing Service Relationship Specialty Start Date End Date Ashley Calixto MD [address] [place] [address] PCP - General 12/21/11 12/10/14 documented as of this encounter
--- OUTSIDE RECORDS SUMMARY | 2023-09-07 12:24 | XMS_ITS | Encounter Summary ---
Author Organization [facility] Address [facility] [place] [place] [address] Care Team Providers [facility] Consultant Name Role Phone Ashley Calixto MD Primary Care Provider [phone] Encounter Details Date Type Department Care Team (Late st Contact Info) Description 12/02/2013 7:31 AM EDT Anesthesia [place] [address] Sachi Fontanez MD [facility] [place] [address] Anesthesia Record Procedure Summary Procedure Name Responsible Anesthesiologist Anesthesia Start Time Anesthesia Stop Time TOTAL KNEE ARTHROPLASTY (WRVU 19.6) (Left: Knee) Sachi Fontanez MD 12/02/13 0731 12/02/13 1003 Events Date Time Event Comment 12/02/2013 0627 0731 Start 0732 AN Verify 0735 An Start Data 0740 Spinal Spinal anesthet ic + dexmedetomidine gtt. SAB 2mL 0.75% bupivacaine c dextrose +25mch fentanyl, see neuraxial procedure note. 0747 Anesthesia Ready 0810 Procedure Start Delay with f oley insertion 0810 An Tourn Inflated LLE @ 275m mHg 0850 Break/Relief In FOWLER C GREE NWAY, INSURANCE ACCOUNT ASSISTANT 0908 An Tourn Deflated 0913 Break/Relief Out 0940 Procedure Stop 0947 an stop data 1003 Stop Arrived to linda very, Monitors attached, VSS, O2 via FM, ventilating well, +snore. Reported SBAR to nurse. Pt awakes to voice but sleeping, denies discomfort. Meds Name Total Midazolam 1 mg fentaNYL 25 mcg propofol 20 mg propofol INF 169 mg Dexmedetomidine 50 mcg Dexmedetomidine INF 118.5 mcg ceFAZolin (ANCEF) 3g in dextrose 5% 100 mL 3 g dexAMETHasone 4 mg ondansetron 8 mg PHENYLephrine 160 mcg lactated ringers infusion 1,000 mL 2,000 mL * Agents Name O2 Air * Blood No blood administrations on file. Lines, Drains, and Airways Type Details Placement Removal Urethral Catheter 12/02/13; indwelling double lumen catheter; 100% silicone; 10; inserted at this facility (by Charisse Baer, [facility]); 3; 3; 5; none; drainage bag to dependent drainage; urethral catheter removed, tubing intact, per protocol/policy; resistance meet with 16 fr and 14 fr catheters; 12/03/13; 0602 12/02/13 0000 by Margaret Álvarez RN 12/03/13 0602 by Eli Adames RN Incision 12/02/13; knee; 09/28 11/18 (LDA cleanup utility RA#[id number]); 1715 (LDA cleanup utility RA#[id number]) 12/02/13 0000 by Margaret Álvarez RN 10/25/21 1715 by Shaye David Drain/Device Site 12/02/13; Left; knee ; autotransfusion system; 12/03/13; 0926 12/02/13 0000 by Margaret Álvarez RN 12/03/13 0926 by Devi Davis APRN (RETIRED) Peripheral IV Line - Single Lumen 12/02/13; 0634; metacarpal vein left (top of hand); iwnv-[id number]-pzrytm catheter system; 18 gauge, 1 in length; trinh johnson; distraction, intradermal injection, tolerated well, appears comfortable; 12/03/13; 2241 12/02/13 0634 by Trinh Johnson RN 12/03/13 224 by Janie Thornton RN (RETIRED) Peripheral IV Line - Single Lumen 12/02/13; 1015; metacarpal vein right (top of hand); 18 gauge; tolerated well; 12/03/13; 0725 12/02/13 1015 by Iraida De León RN 12/03/13 0725 by Deya Adames LNA documented in this encounter Social History Tobacco Use Types Packs/Day Years Used Date Smoking Tobacco: Former Cigarettes 0 11/04/1988 - 11/04/2013 Smokeless Tobacco: Never Comments:stopped on the 8th, using a patch Alcohol Use Standard Drinks/Week Comments Yes 0 (1 standard drink = 0.6 oz pure alcohol) Not drinking at this time. VERY OCCASIONAL Sex and Gender Information Value Date Recorded Sex Assigned at Not on file Gender Identity Not on file Sexual Orientation Not on file documented as of this encounter OR Notes * Anesthesia Postprocedure Evaluation - Sachi Fontanez MD - 12/02/2013 2:43 PM EDT Patient: Zack Langley Procedure(s) Performed: Procedure(s): @TOTAL KNEE ARTHROPLASTY MODIFIER: ATTUNE STABILIZED ROTATING PLATFORM DEPUY Actual Anesthetic: regional Patient location: PACU Post-op pain: Adequate analgesia Spinal still in place Post-op nausea: no nausea or vomiting Last Vitals: Filed Vitals: 12/02/13 1414 BP: 118/69 Pulse: 77 Temp: 36.7 ??C (98.1 ??F) Resp: 16 Post-op cardiovascular and respiratory status: is stable Level of consciousness: awake, alert and oriented Complications: no apparent complications and tolerated the procedure well Fluid Status: normal * Anesthesia Procedure Notes - Marcelina Rothman CRNA - 12/02/2013 7:34 AM EDT Associated Order(s): ANESTHESIA BLOCK; ANE NEURAXIAL UPDATED; ANE NEURAXIAL UPDATED Procedure: Anesthesia Block Block: Post-op Pain Control, femoral nerve block Post-op pain management at the request of surgeon. Start time: 12/02/2013 6:50 AM End time: 12/02/2013 7:00 AM This patient was greeted in the block room and the risks and benefits of the anesthetic block were reviewed. The risks of infection, bleeding, local anesthetic toxicity, and nerve injury were discussed. Specifically, the approximate risk of nerve injury (02/2999-02/4999) including neuropathy, loss of sensation and motor function, whether permanent or temporary, was discussed as well as the fact that post-surgical nerve injury can be unrelated to the actual injection and may be related to intra-operative issues such as positioning and tourniquet usage. The anesthetic consent was obtained. The timeout was performed prior to procedure start. Standard ASA monitors were applied. Indication/Prep Position: supine Prep: chlorhexidine Laterality: left Ultrasound Guidance: live and kbm-uh-fimnm Skin Medication lidocaine 1% 5 ml Injection Injection technique:continuous Needle Length: 5 cm Gauge: 18 Catheter threaded in: 18 cm Needle Type: tuohy Medication injection made incrementally with aspirations. Nerve infiltration solution through a catheter Ropivicaine 0.375% 20 mL Resident: Fellow: Lydia Attending Physician: Huseyin ~~~~~~~~~~~~~~~~~~~~~~~~~~~~~~~~~~~~~~~~~~~~~~~~~~~~~~~~~~~~ Procedure: Neuraxial Block Primary Anesthetic Type: Spinal The patient was greeted; the risks and benefits were reviewed. The anesthetic consent was obtained.The medical history and chart were reviewed. The timeout was performed. Start time: 12/02/2013 7:33 AM End time: 12/02/2013 7:44 AM Patient Location: Operating Room Patient Prep Position: Sitting Prep: Hand Hygiene, Hat, Mask, Sterile Gloves, Povidone-Iodine and Patient Draped Injection technique: single-shot Skin Anesthetic Lidocaine 1% 3 ml Procedure Technique Level of needle insertion: L2-3 Needle approach: midline Needle Type: Libbyottmalcolm Number of attempts: 1 Intrathecal Injection The patient received the following medication/s as an intrathecal injection: Bupivacaine 0.75% w dextrose 2 ml Fentanyl 25 mcg Events/Notes Events: None Additional Notes: +Clear CSF Resident/MINNA: Nataly Rothman Fellow: Attending Physician: Juli Fontanez ~~~~~~~~~~~~~~~~~~~~~~~~~~~~~~~~~~~~~~~~~~~~~~~~~~~~~~~~~~~~ * Anesthesia Preprocedure Evaluation - Jose Juan Freeman MD - 11/29/2013 2:14 PM EDT Pre-Anesthesia Evaluation for: Zack pereira 43 y.o. male. Procedure(s): @TOTAL KNEE ARTHROPLASTY MODIFIER: ATTUNE STABILIZED ROTATING PLATFORM DEPUY Patient Active Problem List Diagnosis ??? Osteoarthritis of knee ??? Abnormal laboratory test RF + secondary to Hep C infection and neg CCP. ??? Alcohol abuse, in remission ??? Narcotic abuse in remission ??? Neurodermatitis Multiple skin bx with lichen sclerosis chronicus and excoriations without other findings. cryos negative. ??? Depression ??? Hepatitis C ??? Hyperlipidemia ??? Diabetes mellitus ??? Knee pain morbid obesity Elevated Liver enzymes - normal platelets No coags ekg NSR Past Surgical History Procedure Date ??? Knee arthroscopy 02/27/11 left knee - work-related injury ??? Needle biopsy liver 11/22/2011 History Substance Use Topics ??? Smoking status: Former Smoker -- 25 years Types: Cigarettes Quit date: 11/04/2013 ??? Smokeless tobacco: Never Used Comment: stopped on the , using a patch ??? Alcohol Use: Yes Comment: Not drinking at this time. VERY OCCASIONAL History Drug Use No Comment: Clean and sober since 03/10. Hx IV drugs [id number]. Hx intranasal drugs [id number]. Allergies Allergen Reactions ??? Isoniazid ? Rash... Medications: MAR and/or home medications have been reviewed. Physical Exam: There were no vitals filed for this visit. There is no height or weight on file to calculate BMI. Airway Assessment: Mallampati: II TM distance: >3 FB Neck ROM: full Cardiovascular Assessment: cardiovascular exam normal Pulmonary Assessment: pulmonary exam normal Dental Assessment: (+) upper dentures Misc Assessment: Patient is wearing No contact(s). IV access: Peripheral line Anesthesia Plan: ASA 3 regional and general, with a(n) intravenous induction 43 y/o with OA Left knee here for TKA Left PMH: Obesity H/o of narcotic dependence (on suboxone- last dose 3 days ago) DM HLD DANIKA - unable to tolerate CPAP Denies cardiac symptoms Stress test 2013 normal per patient HGB 13.9 11/21/2013 PLATELET 199 11/21/2013 NA 136 11/21/2013 K 3.9 11/21/2013 CREATININE 0.71 11/21/2013 Plan : SAB Femoral nerve catheter ( chronic pain, on suboxone) Region - Other Informed Consent: Anesthetic plan and risks discussed with patient. Use of blood products discussed with patient whom. Plan discussed with INSURANCE ACCOUNT ASSISTANT. [facility] [place]. Assessment: documented in this encounter Plan of Treatment Not on file documented as of this encounter Procedures Procedure Name Priority Date/Time Associated Diagnosis Comments ANESTHESIA BLOCK Routine 12/02/2013 8:30 AM EDT documented in this encounter Results * ANE NEURAXIAL UPDATED (12/02/2013 8:30 AM EDT) Narrative Marcelina Rothman CRNA - 12/02/2013 8:30 AM EDT Marcelina Rothman CRNA ? 12/02/2013 ??8:30 AM Procedure: ??Anesthesia Block Block: Post-op Pain Control, femoral nerve block Post-op pain management at the request of surgeon. Start time: 12/02/2013 6:50 AM End time: 12/02/2013 7:00 AM This patient was greeted in the block room and the risks and benefits of the anesthetic block were reviewed. ??The risks of infection, bleeding, local anesthetic toxicity, and nerve injury were discussed. ??Specifically, the approximate risk of nerve injury (02/2999-02/4999) including neuropathy, loss of sensation and motor function, whether permanent or temporary, was discussed as well as the fact that post-surgical nerve injury can be unrelated to the actual injection and may be related to intra-operative issues such as positioning and tourniquet usage. ?? The anesthetic consent was obtained. The timeout was performed prior to procedure start. ??Standard ASA monitors were applied. Indication/Prep Position: supine Prep: chlorhexidine Laterality: left Ultrasound Guidance: live and erb-ek-airhg Skin Medication lidocaine 1% 5 ml Injection Injection technique:continuous Needle Length: 5 cm Gauge: 18 Catheter threaded in: 18 cm Needle Type: tuohy Medication injection made incrementally with aspirations. Nerve infiltration solution through a catheter Ropivicaine 0.375% 20 mL Resident: Fellow: Lydia Attending Physician: ??Huseyin ~~~~~~~~~~~~~~~~~~~~~~~~~~~~~~~~~~~~~~~~~~~~~~~~~~~~~~~~~~~~ Procedure: ?? Neuraxial Block Primary Anesthetic Type: Spinal The patient was greeted; the risks and benefits were reviewed. ?? The anesthetic consent was obtained. ??The medical history and chart were reviewed. ??The timeout was performed. Start time: 12/02/2013 7:33 AM End time: 12/02/2013 7:44 AM Patient Location: Operating Room Patient Prep Position: Sitting Prep: Hand Hygiene, Hat, Mask, Sterile Gloves, Povidone-Iodine and Patient Draped Injection technique: single-shot Skin Anesthetic Lidocaine 1% ??3 ml Procedure Technique Level of needle insertion: L2-3 Needle approach: midline Needle Type: Sprotte Number of attempts: 1 Intrathecal Injection The patient received the following medication/s as an intrathecal injection: Bupivacaine 0.75% w dextrose 2 ml Fentanyl ??25 mcg Events/Notes Events: ??None Additional Notes: ??+Clear CSF Resident/MINNA: Nataly Rothman Fellow: Attending Physician: ??Juli Fontanez ~~~~~~~~~~~~~~~~~~~~~~~~~~~~~~~~~~~~~~~~~~~~~~~~~~~~~~~~~~~~ Procedure Note Marcelina Rothman CRNA - 12/02/2013 7:34 AM EDT Procedure: Anesthesia Block Block: Post-op Pain Control, femoral nerve block Post-op pain management at the request of surgeon. Start time: 12/02/2013 6:50 AM End time: 12/02/2013 7:00 AM This patient was greeted in the block room and the risks and benefits ofthe anesthetic block were reviewed. The risks of infection, bleeding,local anesthetic toxicity, and nerve injury were discussed. Specifically,the approximate risk of nerve injury (02/2999-02/4999) including neuropathy,loss of sensation and motor function, whether permanent or temporary, wasdiscussed as well as the fact that post- surgical nerve injury can beunrelated to the actual injection and may be related to intra-operativeissues such as positioning and tourniquet usage. The anesthetic consentwas obtained. The timeout was performed prior to procedure start.Standard ASA monitors were applied. Indication/Prep Position: supine Prep: chlorhexidine Laterality: left Ultrasound Guidance: live and mbb-cq-yhtvz Skin Medication lidocaine 1% 5 ml Injection Injection technique:continuous Needle Length: 5 cm Gauge: 18 Catheter threaded in: 18 cm Needle Type: tuohy Medication injection made incrementally with aspirations. Nerve infiltration solution through a catheter Ropivicaine 0.375% 20 mL Resident: Fellow: Lydia Attending Physician: Huseyin ~~~~~~~~~~~~~~~~~~~~~~~~~~~~~~~~~~~~~~~~~~~~~~~~~~~~~~~~~~~~ Procedure: Neuraxial Block Primary Anesthetic Type: Spinal The patient was greeted; the risks and benefits were reviewed. Theanesthetic consent was obtained. The medical history and chart werereviewed. The timeout was performed. Start time: 12/02/2013 7:33 AM End time: 12/02/2013 7:44 AM Patient Location: Operating Room Patient Prep Position: Sitting Prep: Hand Hygiene, Hat, Mask, Sterile Gloves, Povidone-Iodine and PatientDraped Injection technique: single-shot Skin Anesthetic Lidocaine 1% 3 ml Procedure Technique Level of needle insertion: L2-3 Needle approach: midline Needle Type: Phil Number of attempts: 1 Intrathecal Injection The patient received the following medication/s as an intrathecalinjection: Bupivacaine 0.75% w dextrose 2 ml Fentanyl 25 mcg Events/Notes Events: None Additional Notes: +Clear CSF Resident/INSURANCE ACCOUNT ASSISTANT: Nataly Rothman Fellow: Attending Physician: Juli Fontanez ~~~~~~~~~~~~~~~~~~~~~~~~~~~~~~~~~~~~~~~~~~~~~~~~~~~~~~~~~~~~ Marcelina Rothman INSURANCE ACCOUNT ASSISTANT CONSTRUCTION ACCOUNTANT [facility] * ANE NEURAXIAL UPDATED (12/02/2013 8:30 AM EDT) Narrative Marcelina Rothman CRNA - 12/02/2013 8:30 AM EDT Marcelina Rothman CRNA ? 12/02/2013 ??8:30 AM Procedure: ??Anesthesia Block Block: Post-op Pain Control, femoral nerve block Post-op pain management at the request of surgeon. Start time: 12/02/2013 6:50 AM End time: 12/02/2013 7:00 AM This patient was greeted in the block room and the risks and benefits of the anesthetic block were reviewed. ??The risks of infection, bleeding, local anesthetic toxicity, and nerve injury were discussed. ??Specifically, the approximate risk of nerve injury (02/2999-02/4999) including neuropathy, loss of sensation and motor function, whether permanent or temporary, was discussed as well as the fact that post-surgical nerve injury can be unrelated to the actual injection and may be related to intra-operative issues such as positioning and tourniquet usage. ?? The anesthetic consent was obtained. The timeout was performed prior to procedure start. ??Standard ASA monitors were applied. Indication/Prep Position: supine Prep: chlorhexidine Laterality: left Ultrasound Guidance: live and yjn-cu-locqu Skin Medication lidocaine 1% 5 ml Injection Injection technique:continuous Needle Length: 5 cm Gauge: 18 Catheter threaded in: 18 cm Needle Type: tuohy Medication injection made incrementally with aspirations. Nerve infiltration solution through a catheter Ropivicaine 0.375% 20 mL Resident: Fellow: Lydia Attending Physician: ??Fontanez ~~~~~~~~~~~~~~~~~~~~~~~~~~~~~~~~~~~~~~~~~~~~~~~~~~~~~~~~~~~~ Procedure: ?? Neuraxial Block Primary Anesthetic Type: Spinal The patient was greeted; the risks and benefits were reviewed. ?? The anesthetic consent was obtained. ??The medical history and chart were reviewed. ??The timeout was performed. Start time: 12/02/2013 7:33 AM End time: 12/02/2013 7:44 AM Patient Location: Operating Room Patient Prep Position: Sitting Prep: Hand Hygiene, Hat, Mask, Sterile Gloves, Povidone-Iodine and Patient Draped Injection technique: single-shot Skin Anesthetic Lidocaine 1% ??3 ml Procedure Technique Level of needle insertion: L2-3 Needle approach: midline Needle Type: Phil Number of attempts: 1 Intrathecal Injection The patient received the following medication/s as an intrathecal injection: Bupivacaine 0.75% w dextrose 2 ml Fentanyl ??25 mcg Events/Notes Events: ??None Additional Notes: ??+Clear CSF Resident/INSURANCE ACCOUNT ASSISTANT: Nataly Rothman Fellow: Attending Physician: ??Juli Fontanez ~~~~~~~~~~~~~~~~~~~~~~~~~~~~~~~~~~~~~~~~~~~~~~~~~~~~~~~~~~~~ Procedure Note Marcelina Rothman CRNA - 12/02/2013 7:34 AM EDT Procedure: Anesthesia Block Block: Post-op Pain Control, femoral nerve block Post-op pain management at the request of surgeon. Start time: 12/02/2013 6:50 AM End time: 12/02/2013 7:00 AM This patient was greeted in the block room and the risks and benefits ofthe anesthetic block were reviewed. The risks of infection, bleeding,local anesthetic toxicity, and nerve injury were discussed. Specifically,the approximate risk of nerve injury (02/2999-02/4999) including neuropathy,loss of sensation and motor function, whether permanent or temporary, wasdiscussed as well as the fact that post- surgical nerve injury can beunrelated to the actual injection and may be related to intra-operativeissues such as positioning and tourniquet usage. The anesthetic consentwas obtained. The timeout was performed prior to procedure start.Standard ASA monitors were applied. Indication/Prep Position: supine Prep: chlorhexidine Laterality: left Ultrasound Guidance: live and moa-eu-hbvqj Skin Medication lidocaine 1% 5 ml Injection Injection technique:continuous Needle Length: 5 cm Gauge: 18 Catheter threaded in: 18 cm Needle Type: tuohy Medication injection made incrementally with aspirations. Nerve infiltration solution through a catheter Ropivicaine 0.375% 20 mL Resident: Fellow: Lydia Attending Physician: Huseyin ~~~~~~~~~~~~~~~~~~~~~~~~~~~~~~~~~~~~~~~~~~~~~~~~~~~~~~~~~~~~ Procedure: Neuraxial Block Primary Anesthetic Type: Spinal The patient was greeted; the risks and benefits were reviewed. Theanesthetic consent was obtained. The medical history and chart werereviewed. The timeout was performed. Start time: 12/02/2013 7:33 AM End time: 12/02/2013 7:44 AM Patient Location: Operating Room Patient Prep Position: Sitting Prep: Hand Hygiene, Hat, Mask, Sterile Gloves, Povidone-Iodine and PatientDraped Injection technique: single-shot Skin Anesthetic Lidocaine 1% 3 ml Procedure Technique Level of needle insertion: L2-3 Needle approach: midline Needle Type: Sprotte Number of attempts: 1 Intrathecal Injection The patient received the following medication/s as an intrathecalinjection: Bupivacaine 0.75% w dextrose 2 ml Fentanyl 25 mcg Events/Notes Events: None Additional Notes: +Clear CSF Resident/INSURANCE ACCOUNT ASSISTANT: Nataly Rothman Fellow: Attending Physician: Juli Fontanez ~~~~~~~~~~~~~~~~~~~~~~~~~~~~~~~~~~~~~~~~~~~~~~~~~~~~~~~~~~~~ Marcelina Rothman CRNA CONSTRUCTION ACCOUNTANT [facility] * Anesthesia Block (12/02/2013 8:30 AM EDT) Narrative Marcelina Rothman CRNA - 12/02/2013 8:30 AM EDT Marcelina Rothman CRNA ? 12/02/2013 ??8:30 AM Procedure: ??Anesthesia Block Block: Post-op Pain Control, femoral nerve block Post-op pain management at the request of surgeon. Start time: 12/02/2013 6:50 AM End time: 12/02/2013 7:00 AM This patient was greeted in the block room and the risks and benefits of the anesthetic block were reviewed. ??The risks of infection, bleeding, local anesthetic toxicity, and nerve injury were discussed. ??Specifically, the approximate risk of nerve injury (02/2999-02/4999) including neuropathy, loss of sensation and motor function, whether permanent or temporary, was discussed as well as the fact that post-surgical nerve injury can be unrelated to the actual injection and may be related to intra-operative issues such as positioning and tourniquet usage. ?? The anesthetic consent was obtained. The timeout was performed prior to procedure start. ??Standard ASA monitors were applied. Indication/Prep Position: supine Prep: chlorhexidine Laterality: left Ultrasound Guidance: live and azw-xi-hbdvo Skin Medication lidocaine 1% 5 ml Injection Injection technique:continuous Needle Length: 5 cm Gauge: 18 Catheter threaded in: 18 cm Needle Type: tuohy Medication injection made incrementally with aspirations. Nerve infiltration solution through a catheter Ropivicaine 0.375% 20 mL Resident: Fellow: Lydia Attending Physician: ??Huseyin ~~~~~~~~~~~~~~~~~~~~~~~~~~~~~~~~~~~~~~~~~~~~~~~~~~~~~~~~~~~~ Procedure: ?? Neuraxial Block Primary Anesthetic Type: Spinal The patient was greeted; the risks and benefits were reviewed. ?? The anesthetic consent was obtained. ??The medical history and chart were reviewed. ??The timeout was performed. Start time: 12/02/2013 7:33 AM End time: 12/02/2013 7:44 AM Patient Location: Operating Room Patient Prep Position: Sitting Prep: Hand Hygiene, Hat, Mask, Sterile Gloves, Povidone-Iodine and Patient Draped Injection technique: single-shot Skin Anesthetic Lidocaine 1% ??3 ml Procedure Technique Level of needle insertion: L2-3 Needle approach: midline Needle Type: Phil Number of attempts: 1 Intrathecal Injection The patient received the following medication/s as an intrathecal injection: Bupivacaine 0.75% w dextrose 2 ml Fentanyl ??25 mcg Events/Notes Events: ??None Additional Notes: ??+Clear CSF Resident/MINNA: Nataly Rothman Fellow: Attending Physician: ??Juli Fontanez ~~~~~~~~~~~~~~~~~~~~~~~~~~~~~~~~~~~~~~~~~~~~~~~~~~~~~~~~~~~~ Procedure Note Marcelina Rothman CRNA - 12/02/2013 7:34 AM EDT Procedure: Anesthesia Block Block: Post-op Pain Control, femoral nerve block Post-op pain management at the request of surgeon. Start time: 12/02/2013 6:50 AM End time: 12/02/2013 7:00 AM This patient was greeted in the block room and the risks and benefits ofthe anesthetic block were reviewed. The risks of infection, bleeding,local anesthetic toxicity, and nerve injury were discussed. Specifically,the approximate risk of nerve injury (02/2999-02/4999) including neuropathy,loss of sensation and motor function, whether permanent or temporary, wasdiscussed as well as the fact that post- surgical nerve injury can beunrelated to the actual injection and may be related to intra-operativeissues such as positioning and tourniquet usage. The anesthetic consentwas obtained. The timeout was performed prior to procedure start.Standard ASA monitors were applied. Indication/Prep Position: supine Prep: chlorhexidine Laterality: left Ultrasound Guidance: live and wqy-za-vjcdt Skin Medication lidocaine 1% 5 ml Injection Injection technique:continuous Needle Length: 5 cm Gauge: 18 Catheter threaded in: 18 cm Needle Type: tuohy Medication injection made incrementally with aspirations. Nerve infiltration solution through a catheter Ropivicaine 0.375% 20 mL Resident: Fellow: Lydia Attending Physician: Huseyin ~~~~~~~~~~~~~~~~~~~~~~~~~~~~~~~~~~~~~~~~~~~~~~~~~~~~~~~~~~~~ Procedure: Neuraxial Block Primary Anesthetic Type: Spinal The patient was greeted; the risks and benefits were reviewed. Theanesthetic consent was obtained. The medical history and chart werereviewed. The timeout was performed. Start time: 12/02/2013 7:33 AM End time: 12/02/2013 7:44 AM Patient Location: Operating Room Patient Prep Position: Sitting Prep: Hand Hygiene, Hat, Mask, Sterile Gloves, Povidone-Iodine and PatientDraped Injection technique: single-shot Skin Anesthetic Lidocaine 1% 3 ml Procedure Technique Level of needle insertion: L2-3 Needle approach: midline Needle Type: Libbyottmalcolm Number of attempts: 1 Intrathecal Injection The patient received the following medication/s as an intrathecalinjection: Bupivacaine 0.75% w dextrose 2 ml Fentanyl 25 mcg Events/Notes Events: None Additional Notes: +Clear CSF Resident/INSURANCE ACCOUNT ASSISTANT: Nataly Rothman Fellow: Attending Physician: Juli Fontanez ~~~~~~~~~~~~~~~~~~~~~~~~~~~~~~~~~~~~~~~~~~~~~~~~~~~~~~~~~~~~ Jose Juan Freeman MD CONSTRUCTION ACCOUNTANT [facility] documented in this encounter Visit Diagnoses Not on filedocumented in this encounter Administered Medications Inactive Administered Medications - up to 3 most recent administrations Medication Order MAR Action Action Date Dose Rate Site ceFAZolin (ANCEF) 3g in dextrose 5% 100 mL 3 g, Intravenous, EVERY 3 HOURS, 1 dose, First dose on Mon12/02/13 at 0800, Administer over 30 Minutes, Redose after 3 hours., Intra-Operative (Intra-Procedure), Indication for (Active or Suspected): Prophylaxis Given 12/02/2013 7:52 AM EDT 3 g dexamethasone (DECADRON) injection PRN, Starting on Mon12/02/13 at 0802, Until Mon12/02/13 at 1003, Anesthesia Intra-op, Routine Given 12/02/2013 8:02 AM EDT 4 mg dexmedetomidine (PRECEDEX) injection PRN, Starting on Mon12/02/13 at 0747, Until Mon12/02/13 at 1003, Anesthesia Intra-op, Routine Given 12/02/2013 7:47 AM EDT 50 mcg dexmedetomidine (PRECEDEX) IV infusion (Anesthesia CONTINUOUS PRN, Starting on Mon12/02/13 at 0745, Until Mon12/02/13 at 1003, Anesthesia Intra-op Rate/Dose Change 12/02/2013 8:48 AM EDT 0.7 mcg/kg/hr 17.5 mL/hr Rate/Dose Change 12/02/2013 8:35 AM EDT 0.8 mcg/kg/hr 20 m L/hr Rate/Dose Change 12/02/2013 8:26 AM EDT 0.7 mcg/kg/hr 17.5 mL/hr fentaNYL 50mcg/mL injection PRN, Starting on Mon12/02/13 at 0740, Until Mon12/02/13 at 1003, Pain, Anesthesia Intra-op, Routine Given 12/02/2013 7:40 AM EDT 25 mcg lactated ringers infusion 1,000 mL 1,000 mL, at 100 mL/hr, Intravenous, CONTINUOUS, Starting on Mon12/02/13 at 0615, Until Mon12/02/13 at 1409, PACU Recovery New Bag 12/02/2013 10:00 AM EDT mL New Bag 12/02/2013 8:30 AM EDT mL New Bag 12/02/2013 7:31 AM EDT mL midazolam (PF) (VERSED) 1 mg/mL injection PRN, Starting on Mon12/02/13 at 0737, Until Mon12/02/13 at 1003, Sleep, Anesthesia Intra-op, Routine Given 12/02/2013 7:37 AM EDT 1 mg ondansetron (ZOFRAN) injection PRN, Starting on Mon12/02/13 at 0815, Until Mon12/02/13 at 1003, Nausea, Anesthesia Intra-op, Routine Given 12/02/2013 8:15 AM EDT 8 mg PHENYLephrine HCl in NS (PF) (LISA-SYNEPHRINE) 0.8 mg/10 mL (80 mcg/mL) injection Syrg PRN, Starting on Mon12/02/13 at 0746, Until Mon12/02/13 at 1003, Anesthesia Intra-op, Routine Given 12/02/2013 9:27 AM EDT 80 mcg Given 12/02/2013 7:46 AM EDT 80 mcg propofol (DIPRIVAN) 10 mg/mL bolus injection (Anesthesia) PRN, Starting on Mon12/02/13 at 0835, Until Mon12/02/13 at 1003, Anesthesia Intra-op Given 12/02/2013 8:35 AM EDT 20 mg propofol (DIPRIVAN) infusion CONTINUOUS PRN, Starting on Mon12/02/13 at 0835, Until Mon12/02/13 at 1003, Anesthesia Intra-op, Routine New Bag 12/02/2013 8:35 AM EDT 20 mcg/kg/min 15.6 mL/hr documented in this encounter Care Teams [facility] Consultant Relationship Specialty Start Date End Date Ashley Calixto MD [facility] [address] [place] [address] PCP - General 12/21/11 12/10/14 documented as of this encounter
--- OUTSIDE RECORDS SUMMARY | 2023-09-07 12:24 | XMS_ITS | Encounter Summary ---
[place] [address] Care Team Providers Care Flame Channeler Name Role Phone Ashley Calixto MD Primary Care Provider [phone] Encounter Details Date Type Department Care Team (Latest Contact Info) Description 12/26/2013 Anti-Coag Telephone [place] [id number] Yajaira Angel RN S/P total knee arthroplasty, left Social [...] as of this encounter Progress Notes * Yajaira Angel RN - 12/26/2013 3:09 PM EDT Anticoagulation Therapy Nurse Visit Zack Dowell [address] Dr[address] Herrera Indication: DVT Prophylaxis S/P Joint Replacement Duration of Treatment: 28 days ends: 12/30/13, instructed to then start ASA 324 mg BID x 2 weeks. Therapeutic Range: 2.0-3.0 INR: 3.2 Drawn by: [facility] Patient presents with no signs of bleeding [...] Associated Diagnosis Comments EXTERNAL LAB RESULTS Routine 12/26/2013 documented in this encounter Results * (ABNORMAL) External Lab Results (12/26/2013) POC INR 3.2(Externa l Lab) 0.9 - 1.1 12/26/2013 Historical Provider CHEMISTRY ORDERAB LES documented in this encounter Visit Diagnoses Diagnosis S/P total knee arthroplasty, left documented in this encounter Care Teams Flame Channeler Relationship Specialty Start Date End Date Ashley Calixto MD [facility] [address] [place] [address] PCP - General 12/21/11 12/10/14 documented as of this encounter
--- OUTSIDE RECORDS SUMMARY | 2023-09-07 12:24 | XMS_ITS | Encounter Summary ---
Author Organization [facility] [place] [address] Care Team Providers Care Floor Trader Name Role Phone Reece Calixto MD Primary Care Provider [phone] Reason for Referral * Consultation (Routine) - Closed by system - Referral Specialty Diagnoses / Procedures Referred By Casey reyes Referred To Contact Orthopaedic Surgery Diagnoses S/P total knee arthroplasty, left Malika Marlow PA [facility] [place] [address] Referral ID Status Reason Start Date Expiration Date Visits Requested Visits Authorized [id number] Closed by system - Referral Assume Subset of Care 12/05/2013 06/03/2014 1 1 Encounter Details Date Type Department Care Team (Latest Contact Info) Description 12/02/2013 5:43 AM EDT - 12/05/2013 5:37 PM EDT Hospital Encounter [address] [place] [address] Charis Herrera MD [facility] [place] [address] S/P total knee arthroplasty, left Discharge Disposition: Home with VNA Social History Tobacco Use Types Packs/Day Years [...] Sign Reading Time Taken Comments Blood Pressure 129/65 12/05/2013 2:34 PM EDT Pulse 97 12/05/2013 2:34 PM EDT Temperature 37.1 ??C (98.8 ??F) 12/05/2013 2:34 PM ED T Respiratory Rate 16 12/05/2013 2:34 PM EDT Oxygen Saturation 95% 12/05/2013 5:35 AM EDT Inhaled Oxygen Concentration - - Weight 128.4 kg (283 lb) 12/02/2013 2:14 PM EDT Height 180.3 cm (5' 10.98) 12/02/2013 2:14 PM E DT Body Mass Index 39.49 12/02/2013 2:14 PM EDT documented in this encounter Discharge Instructions * Discharge Instructions* Malika Marlow PA - 12/05/2013 4:15 PM EDT Activity: You can weight bearing as tolerated on your Left leg remembering to use a walker or crutches at all times for balance and protection. Flexion AND extension are important to work on at home.You should NOT place a pillow under your knee. To help with extension you can place a pillow under your heel or lower leg or placed lengthwise along the leg. Again DO NOT place a pillow under the operated knee for comfort. You should wear the HALEY hose to knee bilaterally until you are seen in followup. Remove these at least once per day to inspect your skin. Coumadin flow sheet: Date Notes INR Coumadin dose (mg) 12/02 day of operation 0.9 5 12/03 POD 1 1.0 5 12/04 POD 2 0.9 7.5 12/05 D/C POD 3 1.1 Anti-coagulation follow up: (for home bound pts) 1. You should take 7.5 mg (one and one half of the 5mg pills) of Coumadin today. Take this medication at the same time each day - usually 5pm. 2. Your coumadin level or INR target range is 2-3 and this will need to be checked by the Visiting Nurse on the day after discharge and at least twice per week thereafter (usually every Monday and ). The INR should be reported to the [facility] Orth[facility] clinic at [phone], and you will be informed of any needed changes in your Coumadin dose. 3. If your INR level is ever above 3.5 you should not participate in aggressive Physical therapy exercises - you can mobilize/ambulate. This will decrease the possibility of more bleeding into your joint. Once your INR is less than 3.5 you can resume Physical therapy. One of the Orthopedic nurses will call you with further instructions as needed. 4. You will be on Coumadin for 4 weeks. On December 30, STOP the Coumadin and on December 31 begin enteric coated Aspirin 325mg twice a day until you are seen in followup with your orthopedic surgeon. Lovenox injections: Your INR level did not increase as much as expected after surgery so you have been discharged on Lovenox AND coumadin. You will be on the Lovenox injections (40mg daily) until your INR level is greater than 1.4. Once that happens, stop the Lovenox and continue just the coumadin as instructed above. Diet: Resume usual diet, but increase your intake of fluids and fiber while you are on narcotic pain meds to prevent constipation Driving: No, not until you are cleared to do so by your Orthopedic surgeon. Ideally you should not drive if you are on narcotic pain meds as these can affect your judgement and reaction time. Call your surgeon with any questions. Medication: 1. The pain medication that you are using can cause constipation, so make sure you increase your intake of fluids and fiber while you are on them. You should also take the stool softener that was ordered, sennakot, to factilitate a bowel movement. An uqoz-ngd-zccrfre medication, miralax can also beused if needed to combat constipation 2. If you need a renewal on your narcotic pain medication, you need to give the Orthopedic clinic enough time to process your request. This can take up to three days, so plan accordingly. Your renewal for pain medicine should be through your primary care doctor and Dr. Alves of pain management. You should also consult your physician who prescribes your suboxone 3. You have been discharged on a long (fentanyl patch) and short (Oxycodone) acting narcotic. You will be on these medications for a limited period of time only. Taper off these medications as indicated on your prescription. 4. Continue the tylenol 1000 mg every 8 hours around the clock for the next 10 days (December 12) - it can be effective in controlling pain along with your other medications. After December 12, youcan continue to take tylenol as needed. DO NOT EXCEED 3000 mg tylenol in a 24 hour period. Shower: 1. You can shower but remember your activity limitations and always have a chair available for balance and protection. DO NOT submerge the dressing/incision. 2. (Mepilex) Do not let water run over the operative dressing. If it becomes wet lightly pat the dressing dry. DO NOT submerge the incision. 3. If you have chance/sutures always cover them with a waterproof dressing or plastic bag when showering until they are removed. 4. After chance/sutures are removed you can let water run gently over the incision. Wound (Mepilex): 1. Sutures/chance: Staple/suture removal 11-14 days after surgery (approximately December 16). 2. Remove your operative dressing 7 days from your surgery (December 09). When it is removed you can leave the incision open to air or cover it with a light dressing. Do not peel dressing back to look at incision unless there is a problem. It will not re adhere to your skin. 3. If you have lots of drainage when you get home (and it is before December 09), remove this operative dressing and replace it with dry sterile gauze. Continue with daily dressing changes (and as needed) until the drainage stops, then remove the dressing and leave the incision open to air or lightly covered. FOLLOWUP APPOINTMENTS: 1. You will have followup appointments at [facility] as indicated in Future Appointments and Orders. You will have an xray prior to those appointments so please come to Radiology, desk 3T, 1 hour BEFORE your appointment for those x- rays. (at 9:10 am on Jan 02) Future Appointments Date Time [facility] Department Center 01/02/2014 10:10 AM Charis Herrera MD [facility] None If you have questions or concerns: Monday through Monday, 8 AM- 5 PM, please call Dr. Herrera's office at . If it is after 5 PM or on the weekend, please call and ask for orthopedic resident on-call to be paged. 2. You have an appointment with Dr. Alves on December 10 at 9:15 at [facility]. 3. Keep you appointment with you physician who prescribes your suboxone on December 16. He will direct your restart. documented in this encounter Medications at Time of Discharge Medication Sig Dispensed Refills Start Date End Date pravastatin (PRAVACHOL) 20 mg tablet Take 20 mg by mouth daily. fentaNYL (DURAGESIC) 25 mcg/hr Patch [address] 1 patch onto the skin once for 1 dose. Keep the 50 mcg patch on for one more day and then remove and place 25 mcg patch. Leave that in place for 3 days and then remove 1 patch 0 12/05/2013 12/05/2013 warfarin (COUMADIN) 5 mg Tablet Take 1.5 tablets by mouth daily for 25 days. Take the smallest dose possible to control your pain. As your pain improves, take smaller doses and increase the time between doses. You may break the tablet to achieve a smaller dose. 38 tablet 0 12/05/2013 12/30/2013 bisacodyl (DULCOLAX) [address] 1 suppository rectally daily as needed. 12/05/2013 01/02/2014 diaZEPam (VALIUM) 5 mg Tablet Take 1 tablet by mouth every 6 hours as needed (muscle spasms). 20 tablet 0 12/05/2013 01/02/2014 polyethylene glycol (MIRALAX) 17 gram Powder in Packet Take 17 g by mouth daily as needed. 12/05/2013 01/02/2014 senna-docusate (PERICOLACE) 8.6-50 mg Tablet Take 1-4 tablets by mouth 2 times daily. 60 tablet 2 12/05/2013 01/02/2014 enoxaparin (LOVENOX) 40 mg/0.4 mL Syringe Inject 0.4 mLs subcutaneously daily. Administer only if INR is less than 1.4 2 Syringe 1 12/05/2013 01/02/2014 oxyCODONE 10 mg Tablet Take 1-3 tablets by mouth every 4 hours. Take the smallest dose possible to control your pain. As your pain improves, take smaller doses and increase the time between doses. You may break the tablet to achieve a smaller dose. 84 tablet 0 12/05/2013 12/10/2013 lisinopril-hydrochlo rothiazide (PRINZIDE;ZESTORETIC ) 20-12.5 mg Tablet Take 2 tablets by mouth daily. 01/02/2014 glipiZIDE (GLUCOTROL) 10 mg Tablet Extended Rel 24 hr Take 10 mg by mouth daily. 01/02/2014 METFORMIN HCL (METFORMIN ORAL) Take 4 tablets by mouth daily. 500mg 12/11/2014 documented as of this encounter Progress Notes * Marcelina Sims, RN - 12/05/2013 5:21 PM EDT Patient discharged home with driving. IV removed, site benign. My assessment remains unchangedfrom my previous assessment. Patient denies chest pain and shortness of breath. RN discussed pain management with patient, pain tolerable. Patient medicated with 30mg of Oxycodone prior to discharge.Patient has all belongings. Patient received After Visit Summary. These were reviewed. All questions answered. Patient received Lovenox teaching via video, in person demonstration and return demonstration. Patient was encouraged to call with questions or concerns. Discharge packet and prescriptionsgiven to patient. Patient discharged home with A services from [facility]. Paperwork faxed to [facility]. * Chu Castro RN - 12/05/2013 3:19 PM EDT Chart reviewed and met with pt who is ready for d/c home. Pt requests [facility] for services. I explained to pt that his WC info was mad available by EVARISTO Ha in OCM at [facility] and I would give this info to [facility] to see if they can get payment but since he wants to d/c homenow his Medicaid should cover services. He is on Coumadin and will nee PT/INR Fri, then q M&TH,SR in - 14 days, and Home PT 3xwk. Pt has the DME he needs. * Abran Chun MD - 12/05/2013 1:50 PM EDT Acute Pain Service - Daily Visit Note Patient Name: Zack Sousa The pt was seen this AM sitting in a chair comfortably. 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 His pain is under better control. He stateshaving 4/10 pain and endorses having better control. He denies any changes with constipation, denies fever, chills, N/V or diarrhea. Problem List: Active Hospital Problems Diagnosis ??? S/P Left total knee arthroplasty, 12/02/13. Herrera Resolved Hospital Problems Diagnosis Date Resolved No resolved problems to display. Active Non-Hospital Problems Diagnosis ??? Osteoarthritis of knee ??? Abnormal laboratory test ??? Alcohol abuse, in remission ??? Narcotic abuse in remission ??? Neurodermatitis ??? Depression ??? Hepatitis C ??? Hyperlipidemia ??? Diabetes mellitus ??? Knee pain Review of Systems: Sedation Level: none Pruritis/Skin: none GI/Bowels/Nausea; See above Vital Signs: Last Set of Vitals BP 141/68 Pulse 106 Temp 37.3 ??C (99.1 ??F) (Oral) Resp 16 Ht 180.3 cm (5' 10.98) Wt 128.368 kg (283 lb) BMI 39.49 kg/m2 SpO2 95% Physical Exam: Affect: Brighter today Pain Behaviors: minimal Analgesics: Fentanyl duragesic patch 50mcg/hr 72 hrs Oxycodone 5-15mg Q3-4 hours Assessment: 43 yo M POD 3 left TKA on suboxone for narcotic abuse Plan: 1. The pt has one more day on the 50mcg fentanyl patch, please prescribe him a 25mcg/hr patch for the following 72 hours, and then discontinue the patch 2. Please prescribe the current oxycodone dose 5-15mg every 3-4 hours, once the pain begins to subside he can taper down on his own, please write for enough medication for the next two weeks 3. He has a follow up appointment with Dr. Jo Alves at [facility] on 12/10/13 at 0915 4. We will be signing off Plan was discussed with primary team. Please call with any questions or concerns. Consult service will continue to follow patient . Recommendations as above. Please page if further consultation required. HECTOR ATKINSON MD 12/05/2013 Acute Pain Service Pager: [phone] I have seen and examined the patient, providing arceo components as outlined below. I have reviewed the resident???s above note; my evaluation of the patient is below: I was presnt through the fellows evaluation and plans and agree with them. * Ihsan Islas, STEEL DIVISION SUPERVISOR - 12/05/2013 12:35 PM EDT Physical Therapy Note Total Knee Arthroplasty Treatment # 3 Patient Profile: Pt. is a 43 y.o. male admitted on 12/02/2013 by Charis Rodríguez MD for L TKA. PMH: Past Medical History Diagnosis Date ??? History of substance abuse ??? Insomnia ??? Depression ??? Diabetes mellitus PSH: Past Surgical History Procedure Date ??? Knee arthroscopy 02/27/11 left knee - work-related injury ??? Needle biopsy liver 11/22/2011 ??? Total knee arthroplasty 12/02/2013 @TOTAL KNEE ARTHROPLASTY performed by Charis Herrera MD at [facility] MAIN OR Social History: Patient lives with his GF and 2 young boys and 2 teenagers. 1 flight of stairs to enter. 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 Objective: Vitals: SpO2: WNL, HR WNL Most recent Hgb value: 11.1 Pain: 5/10 with activity, premedicated prior to PT. Strength: 3/5, LAQ Functional Mobility: Supine><Sit with HOB flat, independent. Sit><Stand to and from a FWW, independent. Gait: Ambulated approx 150 ft with FWW independent. Gait pattern: Step-to gait, slowly making progress towards step through. Pt. to utilize FWW. Stair training: Pt ascended/descended 16 seven inch steps with 1 hand rail and 1 crutch, independently following VC for technique. Today???s Treatment: 1. Therapeutic functional. 2. Performed 10 reps each ankle pumps, quad sets, short and long quads and seated heel slides. 3. Nu-Step UE & LE ROM exercise for 5 minutes. Education: patient educated on Transfers, Assistive device/technique, Exercise, Safety , Precautions/protocol,Gait , Role of therapy and Discharge planning and verbalizes understanding. Patient status, treatment, and mobility recommendations discussed with nursing staff. Assessment: Pt is POD#3 L TKA. Pt demonstrated increase progress with functional mobility transfers, gait, stair training and exercises. Pt has met hospital PT goals to home when medically ready for d/c. Range of Motion: AROM L knee extension = approx -5 deg, flexion = approx 95 deg Ambulation distance: 150 feet Goals: (to be achieved by 12/04/13) Goal met? Yes No Pt will be knowledgeable of prescribed exercises. x Pt will demonstrate AROM knee extension 0-15 degrees and flexion 80-90 degrees x Pt will move supine<>sit ind. x Pt will move sit<>stand ind. x Pt will ambulate 150 feet using FWW ind x Pt will negotiate 1 flight stairs using 1 railing and 1 crutch, ind. x Discharge Recommendations: Patient would benefit from continued therapeutic interventions 2-3 times a week as provided in a home environment to progress toward functional goals. Physical Therapist recommends: No other consults recommended at this time Plan: Pt has met hospital PT goals to home with family supervision assist and VNA/PT services when medically ready for d/c. Equipment needs: Patient has all necessary equipment. Activity plan w/nursing assist (discussed with nursing staff): PT goals met. Total treatment time: 30 minutes Total timed treatment: 30 minutes for therapeutic functional IHSAN ISLAS PTA Pager: [phone] * Florencio Davenport, PA - 12/05/2013 7:30 AM EDT Orthopaedic Surgery Inpatient Note Attending: Dr. Herrera Patient Name: Zack Sousa Age: 43 y.o. Surgery: Left Total Knee Arthroplasty Date of Surgery: 12/02/2013 Past Medical: Patient Active Problem List Diagnosis Code ??? Knee pain 719.46 ??? Depression 311 ??? Hepatitis C 070.70 ??? Hyperlipidemia 272.4 ??? Diabetes mellitus 250.00 ??? Neurodermatitis 698.3 ??? Abnormal laboratory test 796.4 ??? Alcohol abuse, in remission 305.03 ??? Narcotic abuse in remission 305.43 ??? Osteoarthritis of knee 715.96 ??? S/P Left total knee arthroplasty, 12/02/13. Herrera V43.65 Interim/Subjective: Pt. With improved with pain control, he was seen by Acute Pain Service yestedary. Denies cp/sob/n/v. Vitals: Temp: [36.7 ??C (98.1 ??F)-37.7 ??C (99.9 ??F)] Heart Rate: [85-105] Resp: [18-19] BP: (112-154)/(66-84) SpO2: [95 %-100 %] Gen: awake, alert and appr, NAD Left LE: SCDs, and cryocuff in place Dressing: clean, dry, and intact calves and thigh soft, appropriately tender Sensation intact SP/DP/T/S distr. Motor intact TA/GSC/EHL 5/5 2+DP pulse, regular rhythm Labs: Recent Results (from the past 24 hour(s)) POCT GLUCOSE Component Value Range POC Glucose 136 60 - 199 mg/dL POCT GLUCOSE Component Value Range POC Glucose 108 60 - 199 mg/dL POCT GLUCOSE Component Value Range POC Glucose 120 60 - 199 mg/dL POCT GLUCOSE Component Value Range POC Glucose 94 60 - 199 mg/dL POCT GLUCOSE Component Value Range POC Glucose 104 60 - 199 mg/dL BASIC METABOLIC PANEL (NON-FASTING) Component Value Range Glucose Lvl 96 60 - 199 mg/dL BUN 11 10 - 20 mg/dL Creatinine 0.72 (*) 0.80 - 1.50 mg/dL Sodium 135 135 - 145 mmol/L Potassium 3.9 3.5 - 5.0 mmol/L Chloride 93 (*) 98 - 107 mmol/L CO2 27 22 - 31 mmol/L Anion Gap 15 5 - 15 mmol/L Calcium 8.9 8.5 - 10.5 mg/dL Estimated GFR >60 >=60 PROTHROMBIN TIME Component Value Range PT 14.7 12.5 - 15.5 sec INR 1.1 0.9 - 1.1 HEMOGRAM Component Value Range WBC 13.3 (*) 4.0 - 10.0 x10(3)/mcL RBC 3.72 (*) 4.63 - 6.08 x10(6)/mcL Hemoglobin 11.1 (*) 13.7 - 17.5 gm/dL Hematocrit 32.2 (*) 40.0 - 51.0 % MCV 86.6 79.0 - 92.0 fL MCH 29.8 25.6 - 32.2 pg MCHC 34.5 32.0 - 36.5 gm/dL Platelets 221 145 - 370 x10(3)/mcL RDWSD 39.5 35.0 - 46.0 fL RDWCV 12.5 10.9 - 14.4 % MPV 11.2 9.0 - 12.0 fL DIFFERENTIAL, AUTOMATED Component Value Range Neutrophils % 54.5 Neutr Abs (ANC) 7.23 (*) 1.50 - 6.30 x10(3)/mcL Lymphocytes % 35.0 Lymphocytes Abs 4.6 (*) 1.0 - 3.6 x10(3)/mcL Monocytes % 8.2 Monocyte Abs 1.1 (*) 0.2 - 1.0 x10(3)/mcL Eosinophils % 1.6 Eosinophils Abs 0.2 0.0 - 0.5 x10(3)/mcL Basophils % 0.4 Basophils Abs 0.0 0.0 - 0.2 x10(3)/mcL Immature Gran % 0.30 Alexa Gran Abs 0.04 0.00 - 0.05 x10(3)/mcL POCT GLUCOSE Component Value Range POC Glucose 105 60 - 199 mg/dL x-rays: none new. Assessment: Zack Sousa 43 y.o. male, s/p Left TKA, post op day #2. He has a history of narcotic abuse on suboxone, and has had post-op pain control issues. He was seen by the Acute Pain Service yesterday, pain is better controlled. Anticipate d/c home today. Recommendations: Will follow APS recommendations Weight bearing status of operative extremity: Weight bearing as tolerated Wound closure: [place] (remove 10-14 days) Dressing changes: Mepilex Silver (Do not remove for 7 days. Dry Dressings PRN after that) Follow-up Plan: As scheduled prior to surgery Anticoagulation: Coumadin 28 days folllowed by 2 weeks of Aspirin 325mg twice daily Antibiotics x 24h felix-operatively Any possible barriers to discharge: None Plan for hospital stay: Standard Future Appointments Date Time Provider Department Center 01/02/2014 10:10 AM Charis Herrera MD [facility] None * Elfego Garcia RN - 12/04/2013 9:49 PM EDT I agree with previous assessment. See doc flow sheet for full assessment. * Saadia Henson MSW - 12/04/2013 3:33 PM EDT Workers??? Compensation Inpatient Demographics Name: Zack Sousa : 1970 DOI: 12/30/2010 To: L Knee/Low Back Employer: [employer] Ins. Co.: [place] Claim: [id number] Hydrometer Tester: Idalia Chauhan NCM: No NCM as of 12/04/2013 * Tri Briceño RN - 12/04/2013 2:44 PM EDT This is a 43 yo gentleman who underwent L TKA with Dr Herrera on 12/03/13. Pt has [place] [employer] insurance listed however pt explains this is workers comp thru [place]. CRC confirming information. Met with pt his SO and 2 young children this afternoon. He is OOB and has IV in place at this time. Pain reports mod at this time. Patient lives with his GF and 2 young boys and 2 teenagers. 1 flight of stairs to enter. 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 We discussed need for FWW for use at home and he has no preference for vendor although IF WC- they may have specific vendors they prefer. Will await confirmation of WC before completing VNA and DME orders. ADDENDUM: Received confirmation WC. Tel Call to brake adjuster Hydrometer Tester: Idalia Chauhan We discussed she has approved securing FWW and 3 in 1 commode from [facility] facility to avoid delay in d/c. She will confirm appropriate in network VNA services. Provided WC with contact info for Chu Castro RN who will be following pt tomorrow. Will secure DME VNA orders still need to be completed once agency finalized. * Ihsan Islas, STEEL DIVISION SUPERVISOR - 12/04/2013 1:18 PM EDT Physical Therapy Note Total Knee Arthroplasty Treatment # 2 Patient Profile: Pt. is a 43 y.o. male admitted on 12/02/2013 by Charis Rodríguez MD for L TKA. PMH: Past Medical History Diagnosis Date ??? History of substance abuse ??? Insomnia ??? Depression ??? Diabetes mellitus PSH: Past Surgical History Procedure Date ??? Knee arthroscopy 02/27/11 left knee - work-related injury ??? Needle biopsy liver 11/22/2011 ??? Total knee arthroplasty 12/02/2013 @TOTAL KNEE ARTHROPLASTY performed by Charis Herrera MD at [facility] MAIN OR Social History: Patient lives with his GF and 2 young boys and 2 teenagers. 1 flight of stairs to enter. 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 Objective: Vitals: SpO2: WNL, HR WNL Most recent Hgb value: 10.3 Pain: Moderate to severe with exercises, moderate with ambulation, SALES WAREHOUSE DRIVER x 2 Strength: 3/5, LAQ Functional Mobility: Supine->sit N/E, pt received in CC Sit->supine N/E Sit><Stand to and from a FWW, supervision assist, VC for technique. Gait: Ambulated approx 150 ft with FWW contact guard/supervision assist, VC for technique Gait pattern: Step-to gait. Pt. to utilize FWW and 1 to ambulate with nursing staff. Today???s Treatment: 1. Therapeutic functional. 2. Performed 10 reps each ankle pumps, quad sets, long quads and seated heel slides. Pt in possession of handout illustrating the exercises and was instructed to perform them as able 3x per day. Education: patient educated on Transfers, Assistive device/technique, Exercise, Safety , Precautions/protocol,Gait , Role of therapy and Discharge planning and verbalizes understanding. Patient status, treatment, and mobility recommendations discussed with nursing staff. Assessment: Pt is POD#2 L TKA. Pt demonstrated increase progress with functional mobility transfers, gait and exercises. Pt presents with pain, decreased ROM, strength, functional mobility, and gait skills. Pt will benefit from PT to address his/her functional deficits to restore prior level of function. Anticipate pt will progress well and be able to d/c to home. Range of Motion: AROM L knee extension = approx -10 deg, flexion = approx 90 deg Ambulation distance: 150 feet Goals: (to be achieved by 12/04/13) Goal met? Yes No Pt will be knowledgeable of prescribed exercises. x Pt will demonstrate AROM knee extension 0-15 degrees and flexion 80-90 degrees x Pt will move supine<>sit ind. Pt will move sit<>stand ind. Pt will ambulate 150 feet using FWW ind Pt will negotiate 1 flight stairs using 1 railing and 1 crutch, ind. Discharge Recommendations: Patient would benefit from continued therapeutic interventions 2-3 times a week as provided in a home environment to progress toward functional goals. Physical Therapist recommends: No other consults recommended at this time Plan: Patient to be seen daily for physical therapy to include Therapeutic exercises, Therapeutic functional activities and Gait training. Patient agrees to the plan as stated. Equipment needs: Patient has all necessary equipment. Activity plan w/nursing assist (discussed with nursing staff): amb with FWW and 1 assist. Total treatment time: 30 minutes Total timed treatment: 25 minutes for therapeutic functional IHSAN ISLAS PTA Pager: [phone] * Florencio Davenport, PA - 12/04/2013 6:56 AM EDT Orthopaedic Surgery Inpatient Note Attending: Dr. Herrera Patient Name: Zack Sousa Age: 43 y.o. Surgery: Left Total Knee Arthroplasty Date of Surgery: 12/02/2013 Past Medical: Patient Active Problem List Diagnosis Code ??? Knee pain 719.46 ??? Depression 311 ??? Hepatitis C 070.70 ??? Hyperlipidemia 272.4 ??? Diabetes mellitus 250.00 ??? Neurodermatitis 698.3 ??? Abnormal laboratory test 796.4 ??? Alcohol abuse, in remission 305.03 ??? Narcotic abuse in remission 305.43 ??? Osteoarthritis of knee 715.96 ??? S/P Left total knee arthroplasty, 12/02/13. Javier V43.65 Interim/Subjective: Pt. With difficulties with pain control overnight. He was given boluses of fentanyl and placed on a fentanyl SALES WAREHOUSE DRIVER with improved control. He has a history of narcotic abuse on suboxone, which he discontinued 3 days prior to surgery. Denies cp/sob/n/v. Vitals: Temp: [36.7 ??C (98.1 ??F)-37.6 ??C (99.7 ??F)] Heart Rate: [85-96] Resp: [17-18] BP: (114-148)/(61-85) SpO2: [95 %-97 %] Gen: awake, alert and appr, NAD Left LE: SCDs, and cryocuff in place Dressing: clean, dry, and intact calves and thigh soft, appropriately tender Sensation intact SP/DP/T/S distr. Motor intact TA/GSC/EHL 5/5 2+DP pulse, regular rhythm Labs: Recent Results (from the past 24 hour(s)) POCT GLUCOSE Component Value Range POC Glucose 139 60 - 199 mg/dL POCT GLUCOSE Component Value Range POC Glucose 119 60 - 199 mg/dL POCT GLUCOSE Component Value Range POC Glucose 70 60 - 199 mg/dL POCT GLUCOSE Component Value Range POC Glucose 81 60 - 199 mg/dL POCT GLUCOSE Component Value Range POC Glucose 115 60 - 199 mg/dL POCT GLUCOSE Component Value Range POC Glucose 102 60 - 199 mg/dL POCT GLUCOSE Component Value Range POC Glucose 115 60 - 199 mg/dL POCT GLUCOSE Component Value Range POC Glucose 115 60 - 199 mg/dL BASIC METABOLIC PANEL (NON-FASTING) Component Value Range Glucose Lvl 105 60 - 199 mg/dL BUN 10 10 - 20 mg/dL Creatinine 0.80 0.80 - 1.50 mg/dL Sodium 133 (*) 135 - 145 mmol/L Potassium 3.6 3.5 - 5.0 mmol/L Chloride 93 (*) 98 - 107 mmol/L CO2 30 22 - 31 mmol/L Anion Gap 10 5 - 15 mmol/L Calcium 8.6 8.5 - 10.5 mg/dL Estimated GFR >60 >=60 PROTHROMBIN TIME Component Value Range PT 13.2 12.5 - 15.5 sec INR 0.9 0.9 - 1.1 HEMOGRAM Component Value Range WBC 15.0 (*) 4.0 - 10.0 x10(3)/mcL RBC 3.50 (*) 4.63 - 6.08 x10(6)/mcL Hemoglobin 10.3 (*) 13.7 - 17.5 gm/dL Hematocrit 30.2 (*) 40.0 - 51.0 % MCV 86.3 79.0 - 92.0 fL MCH 29.4 25.6 - 32.2 pg MCHC 34.1 32.0 - 36.5 gm/dL Platelets 212 145 - 370 x10(3)/mcL RDWSD 39.2 35.0 - 46.0 fL RDWCV 12.5 10.9 - 14.4 % MPV 11.4 9.0 - 12.0 fL DIFFERENTIAL, AUTOMATED Component Value Range Neutrophils % 56.6 Neutr Abs (ANC) 8.51 (*) 1.50 - 6.30 x10(3)/mcL Lymphocytes % 35.0 Lymphocytes Abs 5.3 (*) 1.0 - 3.6 x10(3)/mcL Monocytes % 7.4 Monocyte Abs 1.1 (*) 0.2 - 1.0 x10(3)/mcL Eosinophils % 0.6 Eosinophils Abs 0.1 0.0 - 0.5 x10(3)/mcL Basophils % 0.2 Basophils Abs 0.0 0.0 - 0.2 x10(3)/mcL Immature Gran % 0.20 Alexa Gran Abs 0.03 0.00 - 0.05 x10(3)/mcL x-rays: none new. Assessment: Zack Sousa 43 y.o. male, s/p Left TKA, post op day #2. He has a history of narcotic abuse on suboxone, which he discontinued 3 days prior to surgery. Last night he had difficulties with pain control overnight. He was given boluses of fentanyl and placed on a fentanyl SALES WAREHOUSE DRIVER with improved control now. Recommendations: Pending APS consult Weight bearing status of operative extremity: Weight bearing as tolerated Wound closure: Chance (remove 10-14 days) Dressing changes: Mepilex Silver (Do not remove for 7 days. Dry Dressings PRN after that) Follow-up Plan: As scheduled prior to surgery Anticoagulation: Coumadin 28 days folllowed by 2 weeks of Aspirin 325mg twice daily Antibiotics x 24h felix-operatively Any possible barriers to discharge: None Plan for hospital stay: Standard Anticipated Length of Stay: 2-3 days Future Appointments Date Time Provider Department Center 01/02/2014 10:10 AM Charis Herrera MD [facility] None * Naresh Rojo RN - 12/04/2013 1:50 AM EDT Pt reported pain throughout shift as 10/10. MD notified and one time dose of fentanyl ordered around 1900 and dilaudid PO dose increased. MD notified later throughout shift and 2 doses of fentanyl 50mcg administered and SALES WAREHOUSE DRIVER of dilaudid started. Pt stated SALES WAREHOUSE DRIVER of dilaudid was ineffective. MD notified and SALES WAREHOUSE DRIVER switched to fentanyl and one time 75 mcg of fentanyl administered around 0100. Pt states pain is 6/10 and manageable. Will continue to monitor. * Orlando Acevedo MD - 12/04/2013 1:20 AM EDT ORTHOPEDIC SURGERY SERVICE OVERNIGHT COVERAGE INTERVAL PROGRESS NOTE Patient ID: Zack Sousa is a 43 y.o. male s/p L TKA. Interval Events: Difficulties with pain control overnight. In brief, this is a 43 yo M now POD#1 s/p L TKA with a history of chronic opioid use on suboxone maintenance for cocaine addiction who has had difficulty with post-operative pain control. The night of POD#0 he required multiple bolus doses of fentanyl and a dilaudid SALES WAREHOUSE DRIVER with essentially maximum settings for pain control. This morning his SALES WAREHOUSE DRIVER was d/c'd and his femoral nerve catheter was also removed. He did relatively well during the dayon oxycodone and was switched to PO dilaudid for reasons that are unclear. He mobilized with PT late in the afternoon and immediately afterwards had increasing pain, for which I was called around 7pm. His pain regimen was gradually escalated throughout the evening and was eventually controlled around 1am. Initially, his PO dosing of dilaudid was doubled to 4/8/12 q4h PRN with fentanyl boluses forbreakthrough, however, when it became clear that his pain was still not well controlled after 24mg oral dilaudid and multiple fentanyl boluses he was put back on the dilaudid SALES WAREHOUSE DRIVER. He continued to complain of extreme pain and appeared uncomfortable and his SALES WAREHOUSE DRIVER settings were adjusted multiple times until he was on maximum dilaudid SALES WAREHOUSE DRIVER settings. He received a 75mcg bolus of fentanyl, which provided some relief. His diluadid SALES WAREHOUSE DRIVER was d/c'd and he was placed on a fentanyl SALES WAREHOUSE DRIVER with a 25mcg demand dosewhich finally controlled his pain. Vitals: Last value Range last 8 hrs Temperature Temp: 37.1 ??C (98.8 ??F) Temp: [37.1 ??C (98.8 ??F)-37.6 ??C (99.7 ??F)] Heart Rate Heart Rate: 96 Heart Rate: [87-96] Blood Pressure BP: 147/85 mmHg BP: (147-148)/(73-85) Respiratory Rate Resp: 18 Resp: [17-18] SpO2 SpO2: 97 % SpO2: [97 %] I/O Current Shift: 12/03 1901 - 12/04 0700 In: - Out: 1150 [Urine:1150] Physical Exam: Wt: 128kg General: laying in bed in obvious distress. Neuro: Awake, alert, responds to questions appropriately, CN II-XII grossly intact, moving all fourextremities spontaneously. CV: RRR. Pulm: Normal effort. Abd: Non-distended. Skin: warm, diaphoretic. LLE: natalee bandage was taken down, mepelex over incision sites clean/dry/intact. Limb warm and well perfused, 2+ DP pulse palpable. 5/5 strength to FHL/EHL/TA, sensory intact no parathesias. Compartments soft throughout. Tenderness to palpation on anterior and medial knee. Natalee replaced. Assessment: Zack Sousa is a 43 y.o. male with a history of chronic opioid use now POD#1 s/p L TKA who has had difficulty with post-operative pain control and now having acute pain control issues this evening after working with PT. Physical exam was reassuring and there were no signs of compartment syndrome or other operative complication. Pain control was eventually achieved with a fentanyl SALES WAREHOUSE DRIVER with high settings. Plan: - APS consult in the morning - continue fentanyl SALES WAREHOUSE DRIVER until adequate PO regimen is established - discussed with orthopedic surgery senior resident Melany Acevedo MD PGY-1 Pager #[phone] 12/04/2013 1:21 AM * Jose Juan Moon MD - 12/03/2013 10:22 AM EDT Regional Anesthesia Catheter Progress Note Date of Encounter: 12/03/2013 Responsible Attending: Hernan Burnham Staff / Associate Provider: JOSE JUAN MOON MD ID: Patient is POD# 1 s/p knee arthroplasty for which the patient received a left femoral nerve catheter for post-operative pain control. Patient has not used bolus feature on Fem CPNB pump. Subjective: Today the patient has good pain control and at present states pain is 4 out of 10. Patient has been using the bolus feature. Patient has been able to tolerate PO analgesics and an oral diet without nausea or vomiting. Patient is without any complaints this morning. Objective: Temp: [36.2 ??C (97.2 ??F)-36.9 ??C (98.4 ??F)] Heart Rate: [68-103] Resp: [14-20] BP: (92-137)/(51-87) SpO2: [97 %-100 %] Gen: Patient resting comfortably Nerve catheter is running 0.2% ropivacaine at 6 ml/hr Patient controled bolus of 4 ml with a lockout of 60 min Catheter dressing is clean, dry, and intact. No bruising, erythema, swelling or discharge at insertion site. Sensory: Sensation is intact to cold over anterior thigh Motor: Patient is able to perform straight leg raise with mild weakness No evidence of local anesthetic toxicity Coags: Lab Results Component Value Date INR 1.0 12/03/2013 PT 13.8 12/03/2013 Meds: Medication list reviewed Assessment: Peripheral nerve catheter and SALES WAREHOUSE DRIVER for post-operative pain control, currently with good pain control. Patient being transitioned to oral pain medications. Patient requests d/c of FNC. Plan: ?? Peripheral nerve catheter was removed. Tip was intact. No bleeding, hematoma or erythema at the insertion site. ?? Patient was instructed to contact Regional Anesthesia Team ([id number]) for any unresolved sensory or motor deficits. ?? Thank you for the opportunity to have participated in the care of this patient. JOSE JUAN MOON MD Regional Team pager [phone] * Charis Herrera MD - 12/03/2013 6:54 AM EDT Orthopaedic Surgery Inpatient Note Attending: Dr. Herrera Patient Name: Zack Sousa Age: 43 y.o. Surgery: Left Total Knee Arthroplasty Date of Surgery: 12/02/2013 Past Medical: Patient Active Problem List Diagnosis Code ??? Knee pain 719.46 ??? Depression 311 ??? Hepatitis C 070.70 ??? Hyperlipidemia 272.4 ??? Diabetes mellitus 250.00 ??? Neurodermatitis 698.3 ??? Abnormal laboratory test 796.4 ??? Alcohol abuse, in remission 305.03 ??? Narcotic abuse in remission 305.43 ??? Osteoarthritis of knee 715.96 Interim/Subjective: Pt. doing well this morning. He had a rough day yesterday due to pain, but now improving. He has a history of narcotic abuse on suboxone, which he discontinued 3 days prior to surgery. Denies cp/sob/n/v. Vitals: Temp: [36.1 ??C (97 ??F)-36.9 ??C (98.4 ??F)] Heart Rate: [60-103] Resp: [14-20] BP: (77-159)/(41-87) SpO2: [96 %-100 %] Gen: awake, alert and appr, NAD Left LE: SCDs, and cryocuff in place Dressing: clean, dry, and intact calves and thigh soft, appropriately tender Sensation intact SP/DP/T/S distr. Motor intact TA/GSC/EHL 5/5 2+DP pulse, regular rhythm Drain removed intact to 10 holes at tip Labs: Recent Results (from the past 24 hour(s)) PROTHROMBIN TIME Component Value Range PT 12.7 12.5 - 15.5 sec INR 0.9 0.9 - 1.1 APTT Component Value Range PTT 29 25 - 35 sec POCT GLUCOSE Component Value Range POC Glucose 139 60 - 199 mg/dL POCT GLUCOSE Component Value Range POC Glucose 165 60 - 199 mg/dL POCT GLUCOSE Component Value Range POC Glucose 207 (*) 60 - 199 mg/dL PROTHROMBIN TIME Component Value Range PT 13.0 12.5 - 15.5 sec INR 0.9 0.9 - 1.1 POCT GLUCOSE Component Value Range POC Glucose 226 (*) 60 - 199 mg/dL POCT GLUCOSE Component Value Range POC Glucose 164 60 - 199 mg/dL POCT GLUCOSE Component Value Range POC Glucose 154 60 - 199 mg/dL POCT GLUCOSE Component Value Range POC Glucose 185 60 - 199 mg/dL BASIC METABOLIC PANEL (NON-FASTING) Component Value Range Glucose Lvl 169 60 - 199 mg/dL BUN 13 10 - 20 mg/dL Creatinine 0.81 0.80 - 1.50 mg/dL Sodium 135 135 - 145 mmol/L Potassium 4.5 3.5 - 5.0 mmol/L Chloride 97 (*) 98 - 107 mmol/L CO2 24 22 - 31 mmol/L Anion Gap 14 5 - 15 mmol/L Calcium 8.6 8.5 - 10.5 mg/dL Estimated GFR >60 >=60 PROTHROMBIN TIME Component Value Range PT 13.8 12.5 - 15.5 sec INR 1.0 0.9 - 1.1 HEMOGRAM Component Value Range WBC 13.0 (*) 4.0 - 10.0 x10(3)/mcL RBC 3.59 (*) 4.63 - 6.08 x10(6)/mcL Hemoglobin 10.5 (*) 13.7 - 17.5 gm/dL Hematocrit 30.7 (*) 40.0 - 51.0 % MCV 85.5 79.0 - 92.0 fL MCH 29.2 25.6 - 32.2 pg MCHC 34.2 32.0 - 36.5 gm/dL Platelets 232 145 - 370 x10(3)/mcL RDWSD 38.7 35.0 - 46.0 fL RDWCV 12.4 10.9 - 14.4 % MPV 10.9 9.0 - 12.0 fL DIFFERENTIAL, AUTOMATED Component Value Range Neutrophils % 72.1 (*) 34.0 - 71.0 % Neutr Abs (ANC) 9.42 (*) 1.50 - 6.30 x10(3)/mcL Lymphocytes % 21.5 19.0 - 53.0 % Lymphocytes Abs 2.8 1.0 - 3.6 x10(3)/mcL Monocytes % 6.1 4.0 - 13.0 % Monocyte Abs 0.8 0.2 - 1.0 x10(3)/mcL Eosinophils % 0.0 0.0 - 7.0 % Eosinophils Abs 0.0 0.0 - 0.5 x10(3)/mcL Basophils % 0.1 0.0 - 2.0 % Basophils Abs 0.0 0.0 - 0.2 x10(3)/mcL Immature Gran % 0.20 0.00 - 0.66 % Alexa Gran Abs 0.02 0.00 - 0.05 x10(3)/mcL x-rays: none new. Assessment: Zack Sousa 43 y.o. male, s/p Left TKA, post op day #1 He has a history of narcoticabuse on suboxone, which he discontinued 3 days prior to surgery, making immediate post-op pain control difficulty, the patient with improved pain control now. Will mobilize today. Recommendations: The patient may need switch from oral oxycodone to dilaudid and will maintain SALES WAREHOUSE DRIVER for now until good pain control achieved with oral meds. The patient may need switch from oral oxycodone to dilaudid and will maintain SALES WAREHOUSE DRIVER for now until good pain control achieved with oral meds. Drain was removed, with discontinue IVF and Laurent catheter Weight bearing status of operative extremity: Weight bearing as tolerated Wound closure: [place] (remove 10-14 days) Dressing changes: Mepilex Silver (Do not remove for 7 days. Dry Dressings PRN after that) Follow-up Plan: As scheduled prior to surgery Anticoagulation: Coumadin 28 days folllowed by 2 weeks of Aspirin 325mg twice daily Antibiotics x 24h felix-operatively Any possible barriers to discharge: None Plan for hospital stay: Standard Anticipated Length of Stay: 2-3 days Future Appointments Date Time Provider Department Center 01/02/2014 10:10 AM Charis Herrera MD [facility] None I saw and evaluated the patient. I was integral in formulating the plan as outlined. CHARIS HERRERA MD * Ric Newton James - 12/02/2013 4:33 PM EDT Orthopaedic Surgery Post-Operative Progress Note Patient: Zack Sousa s/p Surgery: 12/02/2013 [id number] Procedure(s) (LRB): @TOTAL KNEE ARTHROPLASTY (Left) MODIFIER: ATTUNE STABILIZED ROTATING PLATFORM DEPUY (Left) Surgeon(s) and Role: * Charis Herrera MD - Primary * Florencio Davenport PA - Physician Chain Builder: 2 Hr 16 Min 40 Sec * No complications entered in OR log * Short History: Awakened from anesthesia, extubated and taken to the recovery room in a stable condition, having suffered no apparent untoward event. Patient reports feeling well after his surgery with minimal pain.No acute concerns or complaints at this time. Patient location: Med/Surg floor Post-op Consciousness awake, alert and oriented Post-op pain: Adequate analgesia ROS: Patient denies chest pain, shortness of breath, dizziness, headache, abdominal pain, nausea, vomiting. Objective: Vitals: Temp: [36.1 ??C (97 ??F)-36.8 ??C (98.2 ??F)] Heart Rate: [60-79] Resp: [14-20] BP: (77-118)/(41-69) SpO2: [97 %-100 %] Intake/Output Summary (Last 24 hours) at 12/02/13 1634 Last data filed at 12/02/13 1517 Gross per 24 hour Intake 4286 ml Output 1460 ml Net 2826 ml Exam: General: NAD, awake/alert, responds to questions HEENT: Normocephalic, atraumatic Cardiac: RRR, S1/S2, No M/R/G Resp: Breathing comfortably, CTAB Ext: WWP. Moving all 4 spontaneously LLE: Knee Dressing c/d/i, NATALEE wrap, drain in place Sensory intact to light touch in: Lat fem cut (ant thigh - L2/L3) Femoral (ant thigh, medial leg, post foot - L2-L4), Sural (post/lat leg, lat ankle/foot - S1/S2) Sup peroneal (Dorsum foot - L4-S1) Deep peroneal (1st web space - L4/L5) Saphenous (medial leg - L3/L4) Motor intact to FHL/EHL/TA, knee extension/flexion, hip extension/flexion Brisk capillary refill distally, foot warm/well-perfused, DP and PT pulses palpable Neuro: No focal deficits. CN II-XII grossly intact. Radiology: No post-operative imaging available at this time. A/P: 43 y.o. year old male POD#0 s/p above procedure. he is having the following post op complications: none - Vitals stable. Pain controlled. - Continue all post-operative care. RIC NEWTON MD 12/02/2013 4:34 PM * Elfego Garcia RN - 12/02/2013 4:10 PM EDT Patient s/p L TKA. Patient AOx 4, HR regular, lung sounds clear, positive bs, lbm 12/02/13, laurent draining clear, yellow urine. +csmt to all extremities. Dressing clean dry and intact. Pain 5/10 at this time, dilaudid SALES WAREHOUSE DRIVER controlling pain. Pt has dangled on edge of bed. Patient oriented to room, call gonzalez to bedside. I agree with previous nurse assessment, please see flowsheet for full assessment.Will continue to monitor ELFEGO GARCIA RN * Shanice Spann RN - 12/02/2013 3:00 PM EDT Patient [facility] via bed from pacu s/p L TKA. Patient AOx 4, HRR, , lung sounds diminished, hypoactive bs, lbm 12/01/13, laurent draining clear yellow urine. +csmt to all extremities. Dressing clean dry and intact. Constavac infusing on arrival. Pain 7/10 at this time, 1x block and dilaudid SALES WAREHOUSE DRIVER controlling pain. Patient oriented to room, call gonzalez to bedside, please see flowsheet for full assessment. Orders were not reviewed on arrival- NAKITA Cameron notified. Will continue to monitor SHANICE SPANN RN * Shwetha Lopez RN - 12/02/2013 12:08 PM EDT 1205- Pt. vanessa sips of H2O. * Shwetha Lopez RN - 12/02/2013 11:47 AM EDT 1145- Break relief. * Iraida Noonan RN - 12/02/2013 10:06 AM EDT 0950) Into PACU from OR. Attached to monitors, alarms on and appropriate for patient. Blood pressure low. Doyle push given by anesthesia. No second site IV present. Anesthesia PACU resident assisting in settling patient. Pulses, dressing checks, spinal and block assessments done per PACU Protocol throughout entire PACU stay. Guille WILLS 1200) Meets PACU dc criteria, but no room available. Guille WILLS 1330) Handoff accepted. Constavac blood started per receiving RN request. Guille WILLS 1400) Transportation requested. Guille WILLS documented in this encounter H&P Notes * Charis Herrera MD - 12/02/2013 6:43 AM EDT SEE H&P DONE TODAY AND PCP'S FROM 11/18. The patient's history and physical exam have been reviewed and completed. There has been no interval change from that of the pre-operative history and physical exam done within the last 30 days. * Charis Herrera MD - 12/02/2013 6:40 AM EDT Patient Name: Zack Sousa Patient Age: 43 y.o. Birthdate: 1970 Admit date: 12/02/2013 Attending Physician: Charis Herrera MD See H&P from his primary done on 11/18/2013. No new illnesses. Feels well. Allergies Allergen Reactions ??? Isoniazid ? Rash... No current facility-administered medications on file prior to encounter. Current Outpatient Prescriptions on File Prior to Encounter Medication Sig Dispense Refill ??? BUPRENORPHINE HCL/NALOXONE HCL (SUBOXONE SL) Place 3 mg under the tongue daily. ??? METFORMIN HCL (METFORMIN ORAL) Take 4 tablets by mouth daily. 500mg ??? pravastatin (PRAVACHOL) 20 mg tablet Take 20 mg by mouth daily. EXAM: PULM: CTA WITH SOME CRACKLES ON THE RIGHT SIDE. CAR: RRR NECK: NO BRUITS ABD: NABS A/P: STABLE FOR SURGERY ACCORDING TO HIS PCP WITH RISKS ASSOCIATED WITH HIS DIABETES AND HEP C. WILL PROCEED WITH LEFT TKA. documented in this encounter Miscellaneous Notes * Miscellaneous - Provider, Scanning - 12/06/2013 8:48 AM EDT * Discharge Summary - Malika Marlow PA - 12/05/2013 4:03 PM EDT Discharge Summary Patient Name: Zack Sousa Patient Age: 43 y.o. Language: Romansh Race: White Ethnicity: Not nor Admit date: 12/02/2013 Discharge date and time: 12/05/2013 Attending Physician: Charis Herrera MD Discharge Physician: Charis Herrera MD Follow-up Recommendations for Providers: Please see patient discharge instructions for additional details. Future Appointments Date Time Provider Department Center 01/02/2014 10:10 AM Charis Herrera MD [facility] None Inpatient Provider Contact Information: Charis Herrera MD Joints: [phone] After hours and weekends, call [facility] [facility] Reporter, , and have Orthopedic resident paged. Discharge Diagnoses (Hospital Problems) and Secondary Diagnoses (Chronic Problems): Active Hospital Problems Diagnosis ??? S/P Left total knee arthroplasty, 12/02/13. Javier Resolved Hospital Problems Diagnosis Date Resolved No resolved problems to display. Active Non-Hospital Problems Diagnosis ??? S/P total knee arthroplasty, left ??? Osteoarthritis of knee ??? Abnormal laboratory test ??? Alcohol abuse, in remission ??? Narcotic abuse in remission ??? Neurodermatitis ??? Depression ??? Hepatitis C ??? Hyperlipidemia ??? Diabetes mellitus ??? Knee pain Operations/Major Procedures: 12/02/2013 LEFT TOTAL KNEE ARTHROPLASTY Surgeon(s) and Role: * Charis Herrera MD - Primary * Florencio Davenport PA - Physician Chain Builder History of Presentation: The patient presented to the orthopaedic surgery clinic with severe left knee pain. The x-ray and exam findings are consistent with osteoarthritis of theleft knee. The risks and benefits of operativetreatment including bleeding, infection, need for revision, fracture, damage to nerves and blood vessels, hematoma, DVT, PE, and cardiopulmonary complications, and the patient elected to proceed withsurgery. I met with the patient prior to surgery in the pre-op holding area and all questions were answered. Informed consent was signed in the clinic during the pre-op visit and the surgical site was marked with a green caddo in the pre-op area Hospital Course: The patient was admitted via Same Day Surgery for the above operation. DVT prophylaxis: Coumadin with Lovenox bridge. Patient began rehab on POD#1 w/ weight bearing as tolerated of left leg remembering to use protection at all times for balance and protection. Drains were removed POD# 1. Laurent was removed POD#1 and patient was voiding spontaneously. Mepilex dressing was inspectedPOD#3 and found to be benign. Patient did not have a bowel movement prior to discharge but was passing flatus . By POD#3 the patient was medically stable and was cleared for safe discharge to home. Of note: Patient is on Suboxone Prior to admission. He stopped the medication prior to surgery as directed by the prescribing doctor. He was seen in consultation by [facility] on 12/04. On dayof discharge patient he was seen by the service. Assessment: 43 yo M POD 3 left TKA on suboxone for narcotic abuse Plan: 1. The pt has one more day on the 50mcg fentanyl patch, please prescribe him a 25mcg/hr patch for the following 72 hours, and then discontinue the patch 2. Please prescribe the current oxycodone dose 5-15mg every 3-4 hours, once the pain begins to subside he can taper down on his own, please write for enough medication for the next two weeks 3. He has a follow up appointment with Dr. Jo Alves at [facility] on 12/10/13 at 0915 4. We will be signing off Plan was discussed with primary team Vital Signs at Discharge: Weight: Wt Readings from Last 1 Encounters: 12/02/13 128.368 kg (283 lb) Height: Ht Readings from Last 1 Encounters: 12/02/13 180.3 cm (5' 10.98) HC: HC Readings from Last 1 Encounters: No data found for HC BMI: Body mass index is 39.49 kg/(m^2). Last value Range last 24 hrs Temperature Temp: 37.1 ??C (98.8 ??F) Temp: [37.1 ??C (98.8 ??F)-37.4 ??C (99.3 ??F)] Heart Rate Heart Rate: 97 Heart Rate: [95-106] Blood Pressure BP: 129/65 mmHg @coofnvu90@ Respiratory Rate Resp: 16 Resp: [16-19] SpO2 SpO2: 95 % @ienlbnxi37@ Art BP BP (Arterial Line): -- Functional and Cognitive Status: Patient ambulating with assistive device. Cognitively intact. Important Studies and Lab Data: Labs: Last 3 wbc, hgb, hct plt Recent Labs Basename 12/05/1343412/04/134 12/03/13420 WBC 13.3* 15.0* 13.0* HGB 11.1* 10.3* 10.5* HCT 32.2* 30.2* 30.7* PLATELET 221 212 232 Last 3 Lytes Recent Labs Basename 12/05/1343412/04/1335312/03/13420 NA 135 133* 135 K 3.9 3.6 4.5 CL 93* 93* 97* CO2 27 30 24 BUN 11 10 13 CREATININE 0.72* 0.80 0.81 Last 3 Coags Recent Labs Basename 12/05/1343412/04/1335312/03/1342012/02/13 0725 PT 14.7 13.2 13.8 -- INR 1.1 0.9 1.0 -- PTT -- -- -- 29 Transfusions: No Studies: No results found. Discharge Conditions/Prognosis: Stable, awake, and alert. Mobilizing with walker/crutches, pain controlled on oral medications. Discharge to: Home with VNA. Updated Allergies/ADRs: Allergies Allergen Reactions ??? Isoniazid ? Rash... Immunizations Given this Hospitalization: There is no immunization history on file for this patient. Discharge Medications: Your Medications As of 12/05/2013 4:42 PM New Medications Dose Details bisacodyl 10 mg Supp Commonly known as: DULCOLAX Place 1 suppository rectally daily as needed. 10 mg Refills: 0 diaZEPam 5 mg Tab Commonly known as: VALIUM Take 1 tablet by mouth every 6 hours as needed (muscle spasms). 5 mg Quantity: 20 tablet Refills: 0 enoxaparin 40 mg/0.4 mL Syrg Commonly known as: LOVENOX Inject 0.4 mLs subcutaneously daily. Administer only if INR is less than 1.4 40 mg Quantity: 2 Syringe Refills: 1 fentaNYL 25 mcg/hr Pt72 Commonly known as: DURAGESIC Place 1 patch onto the skin once for 1 dose. Keep the 50 mcg patch on for one more day and then remove and place 25 mcg patch. Leave that in place for 3 days and then remove 1 patch Quantity: 1 patch Refills: 0 oxyCODONE 10 mg Tab Take 1-3 tablets by mouth every 4 hours. Take the smallest dose possible to control your pain. As your pain improves, take smaller doses and increase the time between doses. You may break the tablet to achieve a smaller dose. 10-30 mg Quantity: 84 tablet Refills: 0 polyethylene glycol 17 gram Pwpk Commonly known as: MIRALAX Take 17 g by mouth daily as needed. 17 g Refills: 0 senna-docusate 8.6-50 mg Tab Commonly known as: PERICOLACE Take 1-4 tablets by mouth 2 times daily. 1-4 tablet Quantity: 60 tablet Refills: 2 warfarin 5 mg Tab Commonly known as: COUMADIN Take 1.5 tablets by mouth daily for 25 days. Take the smallest dose possible to control your pain. As your pain improves, take smaller doses and increase the time between doses. You may break the tablet to achieve a smaller dose. 7.5 mg Quantity: 38 tablet Refills: 0 Continued medications, unchanged Dose Details glipiZIDE 10 mg Tr24 Commonly known as: GLUCOTROL Take 10 mg by mouth daily. 10 mg Refills: 0 lisinopril-hydrochlorothiazide 20-12.5 mg Tab Commonly known as: PRINZIDE;ZESTORETIC Take 2 tablets by mouth daily. 2 tablet Refills: 0 METFORMIN ORAL Take 4 tablets by mouth daily. 500mg 4 tablet Refills: 0 PRAVACHOL 20 mg Tab Take 20 mg by mouth daily. Generic drug: pravastatin 20 mg Refills: 0 STOPPED Medications aspirin 81 mg Tbec SUBOXONE SL Smoking Status at Discharge: History Smoking status ??? Former Smoker -- 25 years ??? Types: Cigarettes ??? Quit date: 11/04/2013 Smokeless tobacco ??? Never Used Comment: stopped on the 8th, using a patch Instructions Given to Patient at Discharge: There are no Patient Instructions on file for this visit. General Instructions Activity: You can weight bearing as tolerated on your Left leg remembering to use a walker or crutches at all times for balance and protection. Flexion AND extension are important to work on at home.You should NOT place a pillow under your knee. To help with extension you can place a pillow under your heel or lower leg or placed lengthwise along the leg. Again DO NOT place a pillow under the operated knee for comfort. You should wear the HALEY hose to knee bilaterally until you are seen in followup. Remove these at least once per day to inspect your skin. Coumadin flow sheet: Date Notes INR Coumadin dose (mg) 12/02 day of operation 0.9 5 12/03 POD 1 1.0 5 12/04 POD 2 0.9 7.5 12/05 D/C POD 3 1.1 7.5 Anti-coagulation follow up: (for home bound pts) 1. You should take 7.5 mg (one and one half of the 5mg pills) of Coumadin today. Take this medication at the same time each day - usually 5pm. 2. Your coumadin level or INR target range is 2-3 and this will need to be checked by the Visiting Nurse on the day after discharge and at least twice per week thereafter (usually every Monday and ). The INR should be reported to the [facility] Ortho clinic at [phone], and you will be informed of any needed changes in your Coumadin dose. 3. If your INR level is ever above 3.5 you should not participate in aggressive Physical therapy exercises - you can mobilize/ambulate. This will decrease the possibility of more bleeding into your joint. Once your INR is less than 3.5 you can resume Physical therapy. One of the Orthopedic nurses will call you with further instructions as needed. 4. You will be on Coumadin for 4 weeks. On December 30, STOP the Coumadin and on December 31 begin enteric coated Aspirin 325mg twice a day until you are seen in followup with your orthopedic surgeon. Lovenox injections: Your INR level did not increase as much as expected after surgery so you have been discharged on Lovenox AND coumadin. You will be on the Lovenox injections (40mg daily) until your INR level is greater than 1.4. Once that happens, stop the Lovenox and continue just the coumadin as instructed above. Diet: Resume usual diet, but increase your intake of fluids and fiber while you are on narcotic pain meds to prevent constipation Driving: No, not until you are cleared to do so by your Orthopedic surgeon. Ideally you should not drive if you are on narcotic pain meds as these can affect your judgement and reaction time. Call your surgeon with any questions. Medication: 1. The pain medication that you are using can cause constipation, so make sure you increase your intake of fluids and fiber while you are on them. You should also take the stool softener that was ordered, sennakot, to factilitate a bowel movement. An sijg-aaw-isjpjsg medication, miralax can also beused if needed to combat constipation 2. If you need a renewal on your narcotic pain medication, you need to give the Orthopedic clinic enough time to process your request. This can take up to three days, so plan accordingly. Your renewal for pain medicine should be through your primary care doctor and Dr. Alves of pain management. You should also consult your physician who prescribes your suboxone 3. You have been discharged on a long (fentanyl patch) and short (Oxycodone) acting narcotic. You will be on these medications for a limited period of time only. Taper off these medications as indicated on your prescription. 4. Continue the tylenol 1000 mg every 8 hours around the clock for the next 10 days (December 12) - it can be effective in controlling pain along with your other medications. After December 12, youcan continue to take tylenol as needed. DO NOT EXCEED 3000 mg tylenol in a 24 hour period. Shower: 1. You can shower but remember your activity limitations and always have a chair available for balance and protection. DO NOT submerge the dressing/incision. 2. (Mepilex) Do not let water run over the operative dressing. If it becomes wet lightly pat the dressing dry. DO NOT submerge the incision. 3. If you have chance/sutures always cover them with a waterproof dressing or plastic bag when showering until they are removed. 4. After chance/sutures are removed you can let water run gently over the incision. Wound (Mepilex): 1. Sutures/chance: Staple/suture removal 11-14 days after surgery (approximately December 16). 2. Remove your operative dressing 7 days from your surgery (December 09). When it is removed you can leave the incision open to air or cover it with a light dressing. Do not peel dressing back to look at incision unless there is a problem. It will not re adhere to your skin. 3. If you have lots of drainage when you get home (and it is before December 09), remove this operative dressing and replace it with dry sterile gauze. Continue with daily dressing changes (and as needed) until the drainage stops, then remove the dressing and leave the incision open to air or lightly covered. FOLLOWUP APPOINTMENTS: 1. You will have followup appointments at [facility] as indicated in Future Appointments and Orders. You will have an xray prior to those appointments so please come to Radiology, desk 3T, 1 hour BEFORE your appointment for those x- rays. (at 9:10 am on Jan 02) Future Appointments Date Time Provider Department Center 01/02/2014 10:10 AM Charis Herrera MD [facility] None If you have questions or concerns: Monday through Monday, 8 AM- 5 PM, please call Dr. Herrera's office at . If it is after 5 PM or on the weekend, please call and ask for orthopedic resident on-call to be paged. 2. You have an appointment with Dr. Alves on December 10 at 9:15 at [facility]. 3. Keep you appointment with you physician who prescribes your suboxone on December 16. He will direct your restart. Future Appointments and Orders Future Appointments: Provider: Department: Dept Phone: Center: 01/02/2014 10:10 AM Charis Herrera MD Orthopaedics [phone] None Joint Appt Questionnaire [facility] [phone] None Future Orders Please Complete By Expires Referral for Anticoagulation Monitoring [GSA933 Custom] Process Instructions: If no progress note charted, please enter Clinical details in comments. Scheduling Instructions: Comments: Questions: Responses: My question or request is: patient going with lovenox bridge. Risk Factors: Responsible Group [facility]TICO[facility] Next due INR 12/06/2013 INR Goal Target End Date 12/30/2013 Referral to Home Health - at DISCHARGE [EFB1849 CPT(R)] Process Instructions: Scheduling Instructions: Comments: [facility] PHONE: [phone] FAX: [phone] DISCHARGE DOCUMENTATION FOR VNA SERVICES (INCLUDING THOSE PATIENTS WITH MEDICARE COVERAGE BEING DISCHARGED HOME WITH VNA SERVICES AND THOSE PATIENTS WITH MEDICARE COVERAGE WHO ARE BEING DISCHARGED HOME WITH HOSPICE SERVICES) Zack Sousa [address] [facility] [phone] (home) Telephone Information: Framework Developer: In discussion with the attending physician, it is certified that this patient is under their care and that they, or a nurse practitioner, clinical nurse specialist or physician's elementary assistant teacher who is working directly with them, had a face to face encounter that meets the physician face to face encounter requirements with this patient on 12/05/2013 The encounter with the patient was in whole, or in part, for the following medical condition, whichis the primary reason for home health care services: [ Left Total Knee Arthroplasty ] In discussion with the primary medical team, it is certified that, based on their findings, the indicated services are medically necessary and appropriate for home health services. HOME HEALTH AGENCY: [facility] Home care orders for Total KneeArthroplasty: 1.RN: Draw PT/INR as follows: PER MD ORDERS. Please draw INR daily until INR is 1.4 or greater. Patient will need lovenox injection if INR is less than 1.4 Thereafter, PT/INR: every Monday and PT/INR results to be called and faxed as follows Mon-Mon Ortho anticoagulation (Coumadin) clinic @ [facility]: ; Sat/Sun: if the PT/INR is drawn on the weekend, call the results to the Orthopedic Resident on callat [phone] for Coumadin dose Point of care testing is acceptable Assess wound , med management, nutrition, and elimination Do not lift the edge of the mepilex dressing to observe the incision; this dressing needs to stay in place until 7 days after surgery. (December 09) Suture or Staple removal in 10-14 days - PER MD ORDERS (approx December 16) 2. PT: Continue PT rehab for balance, endurance, joint mobility, ROM, Strength, TKA protocol Please note that any additional orders needs or changes will need to be obtained from this patient's PCP: REECE CALIXTO MD [facility] [address] [place] [address] All A agencies which cover the area of patient's residence have been reviewed, either verbally tamir writing, and patient/family have chosen the indicated home health care agency for home services. Questions: Responses: Agency name and contact information [facility] Patient location post discharge home What services are requested Registered Nurse Physical Therapy Start date Responsible MD post discharge contact info Primary Care Provider: REECE CALIXTO MD [phone] * Initial Assessments - Omega Orellana, OT - 12/05/2013 12:20 PM EDT Occupational Therapy Evaluation Patient profile: Zack Sousa is a 43 y.o. male patient of Charis Rodríguez MD, admitted on 12/02/2013 for L TKA day of admission 2' OA. Pt with pain issues post op. Past Medical History Diagnosis Date ??? History of substance abuse ??? Insomnia ??? Depression ??? Diabetes mellitus Past Surgical History Procedure Date ??? Knee arthroscopy 02/27/11 left knee - work-related injury ??? Needle biopsy liver 11/22/2011 ??? Total knee arthroplasty 12/02/2013 @TOTAL KNEE ARTHROPLASTY performed by Charis Herrera MD at [facility] MAIN OR Social History: Social History: Patient lives with his GF and 2 young boys and 2 teenagers. Home Setup: 1 flight of stairs to enter home and then home one level DME: none; has walk in shower in the home. Regular height toilet with only leverage points on one side Baseline ADL/Mobility: Independent with ADL???s and IADL???s (shared with GF); hasn't worked in 2 years Code Status: Full Code Activity Orders:change activity as tolerated Precautions: WBAT Objective: Seen today for OT evaluation. Cognitive Status/Behavior: alert, oriented to person, place, and time and affect appropriate to mood Communication: Intact Vision & Perception: WFL Range of motion, strength, coordination: Hand dominance: right Bilateral UEs are within functional limitations Decreased L knee ROM- s/p TKA, and with decreased strength. Activities of Daily Living: Self-feeding: Independent Hygiene grooming: independent with set-up, standing inside the walker. Upper and lower body dressing and bathing: ?? Pt was able to don sock on R foot, but not L. Plans to have girlfriend assist him with task- including HALEY hose mgmt. ?? Pt was able to don shorts modified independent, and appropriately dressed operated leg 1st. ?? Pt has walk in shower and no seat. Discussed using 3 in 1 commode as shower seat, and over toilet as a safety frame. ?? Pt demonstrated ability to transfer in and out of walk in shower with supervision using walker (by back stepping in and then stepping out) /p instruction. Toileting: Toilet Transfer: modified independent using leverage points and from handicap height. (Discussed getting commode to use over toilet at home). Toilet Hygiene: Independent Functional Mobility: Supine to sit: already up in the chair. Sit to stand: modified independent, and appropriately pushing from chair. Ambulation: modified independent with ambulating in room for ADLs with walker. Discussed getting walker bag for walker to improve his ability for transport. Stand to sit: modified independent Balance: sitting independently, standing with support of walker, and able to let go with one hand for carry out ADL tasks with no LOB. IADL???s: Assistance available to patient. Endurance: Information taken from last recorded vitals in flowsheet. Last value Range last 8 hrs Heart Rate Heart Rate: 106 Heart Rate: [102-106] Blood Pressure BP: 141/68 mmHg BP: (108-141)/(68-77) SpO2 SpO2: 95 % SpO2: [95 %] Pt on room air. Pt without adverse effects while up. Pain: Tolerable today, but reports issues earlier in his stay. Skin: previous scars around knee dresssing Informed Consent: The patient agrees to and understands the OT treatment plan and goals. Education: patient educated on Role of occupational therapy/rehabilitation, Transfers, Assistive device/technique, ADL, Precautions/Protocol, Functional Mobility, Home Management, Recommendations, Discharge planning and DME needs and verbalizes and demonstrates understanding. Patient status, treatment, and mobility recommendations discussed with nursing. Assessment: Pt has been seen by OT for evaluation, and he presents with ability to perform daily activities with modifications or will have assistance from his . Pt is mobilizing on his own with use of a walker. Pt is working with [facility] on obtaining walker and 3 in 1 commode for home. has planned to take some time off and will be available at least through Monday. Anticipate d/c today with , and home safety check by VNA therapy. Recommendations: Equipment needs at discharge: Rolling walker and Commode (3 in 1) Discharge Recommendations: Home with , and home safety check by PT/OT Total time spent with patient: 17 minutes Total timed interventions: 0 minutes Pager: [phone] OMEGA ORELLANA OT 12/05/2013 Occupational Therapy Rehabilitation Department * Consult Note - Abran Chun MD - 12/04/2013 11:05 AM EDT Acute Pain Service Consultation Pt Age: 43 y.o. Date of Consultation: 12/04/2013 Consult Service: Orthopedics Place of Service: [facility] Responsible Attending: Javier Espinozataff/Associate Provider: Lamar Consultation Reason: I am seeing Zack Sousa in consultation at the requests of Dr. Herrera for my opinion regarding post-operative pain control. History of Present Illness: HPI: 43 yo M with a history of narcotic abuse (cocaine and opioid pills as stated by the patient) who is currently on suboxone therapy at 3mg per day. His suboxone was stopped 3 days prior to surgery. He is POD 2 from a left TKA and his pain has not been well controlled despite a femoral block (catheter removed 12/03) and oral pain meds along with a dilaudid SALES WAREHOUSE [employer]IVER. He was placed on a fentanyl SALES WAREHOUSE DRIVER the morning of 12/04 and has since stopped requesting oral dilaudid. He received 700mcg of fentanyl within 4 hours. He states that his pain is a constant aching pain located at the anterior left knee. Hehas been ambulating with PT. The intensity of the pain currently is 5/10 on VAS. He states that this is tolerable but that he had better pain control the previous day; his pain intensity then was 3/10. In the past he has had a knee arthroscopy and had adequate pain control with oxycodone. Review of Systems: Review of Systems denies CP, SOB, fever, chills, cough, diarrhea, nausea, vomiting, dizziness. He endorses constipation but this a chronic condition that has not changed since he was admitted. Past Medical and Surgical History: Past Medical History Diagnosis Date ??? History of substance abuse ??? Insomnia ??? Depression ??? Diabetes mellitus Past Surgical History Procedure Date ??? Knee arthroscopy 02/27/11 left knee - work-related injury ??? Needle biopsy liver 11/22/2011 ??? Total knee arthroplasty 12/02/2013 @TOTAL KNEE ARTHROPLASTY performed by Charis Herrera MD at [facility] MAIN OR ADR/Allergies: Allergies Allergen Reactions ??? Isoniazid ? Rash... Pertinent Medications: Current facility-administered medications:[COMPLETED] diaZEPam (VALIUM) tablet 5 mg, 5 mg, Oral, Once, Orlando Acevedo MD, 5 mg at 12/04/13 0019; diphenhydrAMINE (BENADRYL) injection 25 mg, 25 mg, Intravenous, Q30 Min PRN, Orlando Acevedo MD; prochlorperazine (COMPAZINE) injection 5 mg, 5 mg, Intr avenous, Q30 Min PRN, Orlando Acevedo MD; ondansetron (ZOFRAN) injection 4 mg, 4 mg, Intravenous, Q30 Min PRN, Orlando Acevedo MD nalOXone (NARCAN) injection 0.2 mg, 0.2 mg, Intravenous, Q1 Min PRN, Orlando Acveedo MD; SALES WAREHOUSE DRIVER arceo, , Intravenous, Continuous PRN, Orlando Acevedo MD; fentaNYL 50 mcg/mL SALES WAREHOUSE DRIVER 30 mL, , Intravenous, PCAOnly, Orlando Acevedo MD; warfarin (COUMADIN) tablet 7.5 mg, 7.5 mg, Oral, Once, Lis Cameron,AUTOMOBILE TRAVEL CLUB COUNSELOR; [COMPLETED] enoxaparin (LOVENOX) injection 40 mg, 40 mg, Subcutaneous, Once, Lis Cameron APRN, 40 mg at 12/04/13 1055 diaZEPam (VALIUM) tablet 5 mg, 5 mg, Oral, Q6H PRN, Lis Cameron APRN; [DISCONTINUED] HYDROmorphone (DILAUDID) 1 mg/mL SALES WAREHOUSE DRIVER 30 mL, , Intravenous, SALES WAREHOUSE DRIVER Only, Orlando Acevedo MD; [DISCONTINUED] fentaNYL 50 mcg/mL SALES WAREHOUSE DRIVER 30 mL, , Intravenous, SALES WAREHOUSE DRIVER Only, Orlando Acevedo MD, 1,500 mcg at 12/04/13 0050; [COMPLETED] warfarin (COUMADIN) tablet 5 mg, 5 mg, Oral, Once, Florencio Davenport PA, 5 mg at 12/03/13 1719 [COMPLETED] HYDROmorphone (DILAUDID) injection 0.5 mg, 0.5 mg, Intravenous, Once, Lis Cameron APRN, 0.5 mg at 12/03/13 1419; [COMPLETED] fentaNYL 50mcg/mL injection, 50 mcg, Intravenous, Once, Orlando Acevedo MD, 50 mcg at 12/03/13 1857; HYDROmorphone (DILAUDID) tablet 4 mg, 4 mg, Oral, Q3H PRN, Orlando Acevedo MD, 6 mg at 12/03/13 1908; HYDROmorphone (DILAUDID) tablet 8 mg, 8 mg, Oral, Q3H PRN, Orlando Acevedo MD HYDROmorphone (DILAUDID) tablet 12 mg, 12 mg, Oral, Q3H PRN, Orlando Acevedo MD, 12 mg at 247; [COMPLETED] fentaNYL 50mcg/mL injection, 50 mcg, Intravenous, Once, Orlando Acevedo MD, 50 mcg at 12/03/132001; [COMPLETED] fentaNYL 50mcg/mL injection, 50 mcg, Intravenous, Once, Orlando Acevedo MD, 50 mcg at 12/03/132116; [COMPLETED] fentaNYL 50mcg/mL injection, 75 mcg, Intravenous, Once, Orlando Acevedo MD, 75 mcg at 12/04/13 0011 [DISCONTINUED] oxyCODONE (ROXICODONE) immediate release tablet 5 mg, 5 mg, Oral, Q3H PRN, Nisha, Lis P, AUTOMOBILE TRAVEL CLUB COUNSELOR; [DISCONTINUED] oxyCODONE (ROXICODONE) immediate release tablet 10 mg, 10 mg, Oral, Q3H PRN, Nisha, Lis P, AUTOMOBILE TRAVEL CLUB COUNSELOR; [DISCONTINUED] oxyCODONE (ROXICODONE) immediate release tablet 15 mg,15 mg, Oral, Q3H PRN, Nisha, Lis P, AUTOMOBILE TRAVEL CLUB COUNSELOR, 15 mg at 12/03/13 1125 [DISCONTINUED] HYDROmorphone (DILAUDID) injection 0.5 mg, 0.5 mg, Intravenous, Once, Nisha, KarenP, AUTOMOBILE TRAVEL CLUB COUNSELOR; [DISCONTINUED] HYDROmorphone (DILAUDID) tablet 2-6 mg, 2-6 mg, Oral, Q3H PRN, Nisha, Lis P, AUTOMOBILE TRAVEL CLUB COUNSELOR, 6 mg at 12/03/13 1751; [DISCONTINUED] HYDROmorphone (DILAUDID) 1 mg/mL SALES WAREHOUSE DRIVER 30 mL, , Intravenous, SALES WAREHOUSE DRIVER Only, Orlando Acevedo MD, 30 mg at 12/03/13 2130 [DISCONTINUED] diphenhydrAMINE (BENADRYL) injection 25 mg, 25 mg, Intravenous, Q30 Min PRN, Orlando Acevedo MD; [DISCONTINUED] prochlorperazine (COMPAZINE) injection 5 mg, 5 mg, Intravenous, Q30 MinPRN, Orlando Acevedo MD; [DISCONTINUED] nalOXone (NARCAN) injection 0.2 mg, 0.2 mg, Intravenous, Q1 Min PRN, Orlando Acevedo MD; [DISCONTINUED] SALES WAREHOUSE DRIVER arceo, , Intravenous, Continuous PRN, Tiny Acevedo MD [DISCONTINUED] HYDROmorphone (DILAUDID) 1 mg/mL SALES WAREHOUSE DRIVER 30 mL, , Intravenous, SALES WAREHOUSE DRIVER Only, Orlando Acevedo MD; ROpivacaine (NAROPIN) 2 mg/mL for AmbIT, , Perineural, Continuous, Jose Juan Moon MD, Last Rate: 2 mL/hr at 12/02/13 1042, 2 mL at 12/02/13 1042; glipiZIDE (GLUCOTROL) CR tablet 10 mg, 10 mg, Oral, Daily, Florencio Davenport PA, 10 mg at 12/04/13818 metFORMIN (GLUCOPHAGE) tablet 1,000 mg, 1,000 mg, Oral, BID WC, EthelFlorencio, PA, 1,000 mg at 12/04/13818; lisinopril (PRINIVIL;ZESTRIL) tablet 40 mg, 40 mg, Oral, Daily, Ethel, Florencio Dobbins, PA, 40 mg at 12/04/13818; hydrochlorothiazide (HYDRODIURIL) tablet 25 mg, 25 mg, Oral, Daily, Ethel, Florencio Dobbins, PA, 25 mg at 12/04/13818; dextrose 50% injection 25-50 mL, 12.5-25 g, Intravenous, Q1H PRN, Florencio Davenport PA glucagon (human recombinant) injection 1 mg, 1 mg, Intramuscular, Q1H PRN, Florencio Davenport, PA; sodium chloride 0.9 % flush 5 mL, 5 mL, Intravenous, BID, Florencio Davenport, PA, 5 mL at 12/04/13819; sodium chloride 0.9 % flush 5-20 mL, 5-20 mL, Intravenous, Q1 Min PRN, Florencio Davenport PA; lidocaine (XYLOCAINE) 10 mg/mL (1 %) injection 3 mg, 0.3 mL, Subcutaneous, Once PRN, Florencio DavenportPA polyethylene glycol (MIRALAX) packet 17 g, 17 g, Oral, BID, Florencio Davenport, PA, 17 g at ; senna-docusate (PERICOLACE) 8.6-50 mg per tablet 1-4 tablet, 1-4 tablet, Oral, BID, Florencio Davenport, PA, 2 tablet at 12/04/13818; lactulose (CHRONULAC) 20 gram/30 mL oral solution 20-40 g, 30-60 mL, Oral, Daily PRN, Florencio Davenport PA; bisacodyl (DULCOLAX) EC tablet 10 mg, 10 mg, Oral,BID PRN, Florencio Davenport PA bisacodyl (DULCOLAX) suppository 10 mg, 10 mg, Rectal, Daily PRN, Florencio Davenport PA; multivitamin Rdns-Xd-IW-Min (THERAPEUTIC-M) 27-0.4 mg tablet 1 tablet, 1 tablet, Oral, Daily, Florencio Davenport, PA, 1 tablet at 12/04/13 0819; ondansetron (ZOFRAN) tablet 4 mg, 4 mg, Oral, Q8H PRN, Florencio Davenport PA; ondansetron (ZOFRAN) injection 4 mg, 4 mg, Intravenous, Q8H PRN, Florencio Davenport PA insulin aspart (novoLOG) VIAL injection 1-4 Units, 1-4 Units, Subcutaneous, Q4H RUBIA, Florencio Davenport, PA, 2 Units at 12/03/13 0424; esomeprazole (NexIUM) capsule 40 mg, 40 mg, Oral, Daily, Florencio Davenport, PA, 40 mg at 12/04/13 0819; warfarin (COUMADIN) daily order reminder, , Oral, Q24H, Florencio Davenport, PA; atorvastatin (LIPITOR) tablet 10 mg, 10 mg, Oral, QPM, Charis Herrera MD, 10 mg at 12/03/13 1719 [DISCONTINUED] acetaminophen (TYLENOL) tablet 1,000 mg, 1,000 mg, Oral, Q8H RUBIA, Florencio DavenportPA, 1,000 mg at 12/04/13 0605 Family History: Family History Problem Relation Age of Onset ??? Cancer Mother ??? Heart Failure Father ??? High Cholesterol Father ??? Hypertension Father ??? Heart Failure Brother ??? High Cholesterol Brother ??? Hypertension Brother Social History: History Social History ??? Marital Status: Single Spouse Name: N/A Number of Children: N/A ??? Years of Education: N/A Occupational History ??? Not on file. Social History Main Topics ??? Smoking status: Former Smoker -- 25 years Types: Cigarettes Quit date: 11/04/2013 ??? Smokeless tobacco: Never Used Comment: stopped on the , using a patch ??? Alcohol Use: Yes Comment: Not drinking at this time. VERY OCCASIONAL ??? Drug Use: No Comment: Clean and sober since 03/10. Hx IV drugs [id number]. Hx intranasal drugs [id number]. ??? Sexually Active: Yes -- Female, Male partner(s) Other Topics Concern ??? Service No ??? Blood Transfusions No Social History Narrative Pt is . Currently living with significant other, their 10-month old son and 14 year old (daughter of significant other). Together they have a 10 month old boy and is expecting their 2nd child.. 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 He injured left knee and underwent arthroscopy in February. Knee is not getting better. He continues to be out on worker's compensation.He has hx of IVDU [id number] 2012Hx of intranasal drug use 1986-1999Has 2 tat[place] in [facility] 1989 and 1999.Pierced ear in 1992 at home, shared needles.He sees psychiatrist, Dr. Baron, in [facility].He sees drug counselor Yanira Chahal x 7 years.He started suboxone x 7 months ago and has been cleanand sober since.Hx of heavy ETOH x 3 year drinking 12 pack daily when [age]. Now social drinker has2 beers once every 2 months.Working on cutting down with tobacco in attempt to quit. Incarcerated Never Drug-related offense Physical Exam: Last Set of Vitals: BP 127/76 Pulse 95 Temp 36.7 ??C (98.1 ??F) (Oral) Resp 18 Ht 180.3 cm (5' 10.98) Wt 128.368 kg (283 lb) BMI 39.49 kg/m2 SpO2 99% Physical Exam Gen: Pt is in NAD, appears comfortable HEENT: sclera non-icteric, NC/AT Resp: CTAB Cardio: RRR Musculoskel: motor strength 5/5 throughout on RLE, 4/5 quads on LLE Skin: no jaundice, surgical dressing intact, clean and dry Labs: Most recent labs viewed Assessment: 43 yo M on suboxone for narcotic abuse who is POD 2 from a left TKA with severe post-operative pain. Recommendation: Buprenorphine has a half life of 24-42 hours and can take a week to be cleared. It has a strong affinity to the mu opioid receptor which blocks the binding of other opioid medications. 1. Monitor patient for sedation as the buprenorphine continues to be cleared 2. Start a fentanyl patch 100mcg/hr (takes 12-15 hours to take full effect) 3. Stop the fentayl SALES WAREHOUSE DRIVER 6 hours after applying the patch 4. Start oxycodone 5-15mg every 3-4 hours I have discussed with the pt the risks and side effects of opioid medications that include, but arenot limited to: long term acute care registered nurse abuse potential, constipation and sexual dysfunction. Consult service will continue to follow patient. Recommendations are above, please page if further consultation required. HECTOR ATKINSON MD 12/04/2013 # [id number] beeper # [phone]- APS I have seen and examined the patient, providing arceo components as outlined below. I have reviewed the resident???s above note; my evaluation of the patient is below: Patient has better pain control today with equivalent 187 mcg/hr fentanyl. Will decrease the patch to 100 mcg/hr and use short acting oxycodone for breakthrough. Pharmacy uncomfortable and requestingonly 50 mcg/hr patch with extra oxycodone because suboxone effext / block will be wearing off in a few more days. Orders changed. * Plan of Care - Elfego Garcia RN - 12/04/2013 10:44 AM EDT Problem: Fall/Trauma/Injury Risk (Adult, Obstetrics) Goal: Absence of Trauma/Injury/Falls Patient will demonstrate the desired outcomes. Outcome: Absent and monitoring Patient ambulating with walker and 1 assist. Patient's bed in low position, call light/ phone within reach, side rails up x 2, and wearing non-slip socks on feet. Will continue to monitor. Problem: Skin Integrity Impairment, Risk/Actual (Adult, Obstetrics) Goal: Skin Integrity/Wound Healing Patient will demonstrate the desired outcomes. Outcome: Present (see interventions, notes) Patient has no apparent skin issues, except incision which is C/D/I. Patient is ambulating with walker and 1 assist. Will continue to monitor. Problem: Pain, Acute (Adult, Obstetrics) Goal: Acceptable Pain Control/Comfort Level Patient will demonstrate the desired outcomes. Outcome: Present (see interventions, notes) Patient states pain is a 6/10. Administered fentanyl SALES WAREHOUSE DRIVER. Will continue to monitor. * Plan of Care - Naresh Rojo RN - 12/04/2013 2:00 AM EDT Problem: Fall/Trauma/Injury Risk (Adult, Obstetrics) Goal: Identify Signs and Symptoms and Related Risk Factors Signs and symptoms and related risk factors are identified upon initiation of Human Response Clinical Practice Guideline (CPG) Patient ambulating with 1 assist with a walker. Patient remains free of falls during this hospitalization. Patient has a call gonzalez within reach, and aware to alert RN when they are wanting to mobilize. Problem: Skin Integrity Impairment, Risk/Actual (Adult, Obstetrics) Goal: Identify Signs and Symptoms and Related Risk Factors Signs and symptoms and related risk factors are identified upon initiation of Human Response Clinical Practice Guideline (CPG) Patients skin to be intact at this time. Patient aware to reposition themselves every 2 hours. RN will monitor patients skin. Problem: Pain, Acute (Adult, Obstetrics) Goal: Identify Signs and Symptoms and Related Risk Factors Signs and symptoms and related risk factors are identified upon initiation of Human Response Clinical Practice Guideline (CPG) Patient tolerating fentanyl SALES WAREHOUSE DRIVER well with settlings 25 mcg/7 min/1500 mcg. Patient states pain is 6/10. Patient aware to alert RN if pain is not well controlled with current pain medication. RN will monitor patient. * Initial Assessments - Bridgett Wu, PT - 12/03/2013 1:39 PM EDT Physical Therapy Evaluation Total Knee Arthroplasty Patient Profile: Pt. is a 43 y.o. male admitted on 12/02/2013 by Charis Rodríguez MD for L TKA. PMH: Past Medical History Diagnosis Date ??? History of substance abuse ??? Insomnia ??? Depression ??? Diabetes mellitus PSH: Past Surgical History Procedure Date ??? Knee arthroscopy 02/27/11 left knee - work-related injury ??? Needle biopsy liver 11/22/2011 ??? Total knee arthroplasty 12/02/2013 @TOTAL KNEE ARTHROPLASTY performed by Charis Herrera MD at [facility] MAIN OR Social History: Patient lives with his GF and 2 young boys and 2 teenagers. 1 flight of stairs to enter. 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 . The pain was terrible last night but it's better now?? Objective: Vitals: SpO2: WNL, HR WNL Most recent Hgb value: 10.5 Pain: 4/10 at rest , 5/10 with mobilizing Strength: 2/5 quads, -SAQ,-LAQ, -SLR Functional Mobility: Supine->sit N/E, pt received in CC Sit->supine N/E Sit->stand With 1 min assist to FWW Stand->sit With CG and VC s for technique Gait: Ambulated approx 60 ft with FWW and CG x2. Gait pattern: Step-to gait, VC s to keep knee locked in extension and PWB because the knee was buckling Pt. to utilize FWW and 2 to ambulate with nursing staff. Today???s Treatment: 1. Evaluation 2. Performed 10 reps each ankle pumps, quad sets, short arc quads and seated heel slides. Pt in possession of handout illustrating the exercises and was instructed to perform them as able 3x per day. Informed Consent: The patient agrees to and understands the PT treatment plan and goals. Education: patient educated on Transfers, Assistive device/technique, Exercise, Safety , Precautions/protocol,Gait , Role of therapy and Discharge planning and verbalizes understanding. Patient status, treatment, and mobility recommendations discussed with nursing staff. Assessment: Pt is POD#1 L TKA. Pt. tolerated today???s session well but is limited by weak quads. Pt presents with pain, decreased ROM, strength, functional mobility, and gait skills. Pt will benefit from PT to address his/her functional deficits to restore prior level of function. Anticipate pt will progress well and be able to d/c to home. Range of Motion: AROM L knee extension = approx -20 deg, flexion = approx 90 deg Ambulation distance: 60 feet Goals: (to be achieved by 12/04/13) Goal met? Yes No Pt will be knowledgeable of prescribed exercises. Pt will demonstrate AROM knee extension 0-15 degrees and flexion 80-90 degrees Pt will move supine<>sit ind. Pt will move sit<>stand ind. Pt will ambulate 150 feet using FWW ind Pt will negotiate 1 flight stairs using 1 railing and 1 crutch, ind. Discharge Recommendations: Patient would benefit from continued therapeutic interventions 2-3 times a week as provided in a home environment to progress toward functional goals. Physical Therapist recommends: No other consults recommended at this time Plan: Patient to be seen daily for physical therapy to include Therapeutic exercises, Therapeutic functional activities and Gait training. Patient agrees to the plan as stated. Equipment needs: Patient has all necessary equipment. Activity plan w/nursing assist (discussed with nursing staff): amb with FWW and 1-2 assist, cautiously given weak quads on the L Total treatment time: 32 minutes Total timed treatment: 0 minutes nathaliaal BRIDGETT WU, PT Pager: [phone] * Plan of Care - Elfego Garcia RN - 12/03/2013 9:31 AM EDT Problem: Fall/Trauma/Injury Risk (Adult, Obstetrics) Goal: Absence of Trauma/Injury/Falls Patient will demonstrate the desired outcomes. Outcome: Absent and monitoring Patient ambulating with walker and 1 assist. Patient's bed in low position, call light/ phone within reach, side rails up x 2, and wearing non-slip socks on feet. Will continue to monitor. Problem: Skin Integrity Impairment, Risk/Actual (Adult, Obstetrics) Goal: Skin Integrity/Wound Healing Patient will demonstrate the desired outcomes. Outcome: Present (see interventions, notes) Patient has no apparent skin issues, except incision which is is C/D/I. Patient is ambulating with walker and 1 assist. Will continue to monitor. Problem: Pain, Acute (Adult, Obstetrics) Goal: Acceptable Pain Control/Comfort Level Patient will demonstrate the desired outcomes. Outcome: Present (see interventions, notes) Patient states pain is a 3/10. Administered dilaudid SALES WAREHOUSE DRIVER and oral oxycodone. Will continue to monitor. * Plan of Care - Eli Adames RN - 12/03/2013 7:03 AM EDT Problem: Fall/Trauma/Injury Risk (Adult, Obstetrics) Goal: Absence of Trauma/Injury/Falls Patient will demonstrate the desired outcomes. Outcome: Absent and monitoring Patient safety physically maintained through environment. Call light in reach at all times. Pt rings appropriately for assistance. Bed in low position. Fall risk assessment completed during this shift. See Doc flow sheet for full intervention and prevention. Problem: Skin Integrity Impairment, Risk/Actual (Adult, Obstetrics) Goal: Skin Integrity/Wound Healing Patient will demonstrate the desired outcomes. Outcome: Present (see interventions, notes) Skin integrity maintained. Dressing to surgical site with natalee wrap remains c/d/i. Drain has minimaloutput. Laurent catheter discontinued at 0600 this am. No signs of skin breakdown noted this shift. See Doc Flow sheets for additional interventions. Problem: Pain, Acute (Adult, Obstetrics) Goal: Identify Signs and Symptoms and Related Risk Factors Signs and symptoms and related risk factors are identified upon initiation of Human Response Clinical Practice Guideline (CPG) Outcome: Present (see interventions, notes) Pt has uncontrolled pain 10/10 at start of the shift. He reports no relief from scheduled tylenol, dilaudid SALES WAREHOUSE DRIVER and oxycodone 15mg. paged, in to see pt and new orders given. Dilaudid SALES WAREHOUSE DRIVER dose increased and one time order for fentanyl 50mcg given with good effect. Pt is able to rest comfortably for a few hours. He continues on scheduled tylenol and requires oxycodone 15mg q4h in addition to thePCA but reports his pain to be between 3/10-5/10 for the remainder of the night. Will continue to monitor. * Miscellaneous - Hussein Bain - 12/02/2013 2:54 PM EDT * OR Attestation - Charis Herrera MD - 12/02/2013 9:42 AM EDT Attestation: Case Date: 12/02/2013 I performed this procedure without the involvement of a resident, no qualified resident was available. CHARIS HERRERA MD 12/02/2013 * Op Note - Charis Herrera MD - 12/02/2013 9:39 AM EDT [facility] [place] Patient Name: Zack Sousa : [id number] MR#: [id number] Case Date: 12/02/2013 Surgeon: Surgeon(s) and Role: * Charis Herrera MD - Primary * Florencio Davenport PA - Physician Chain Builder Preoperative diagnosis: Left DJD Postoperative diagnosis: Left DJD Procedure(s): @TOTAL KNEE ARTHROPLASTY MODIFIER: ATTUNE STABILIZED ROTATING PLATFORM DEPUY Spinal with FNB Estimated Blood Loss: 200 cc Fluids:1600 cc crystalloid Drains: constavac Urine Output: 240 mL Tourniquet Time: 57 minutes. Left TKR Post OP LT Intra Op Knee Flexion (degrees): 120 LT Intra Op Knee Extension (degrees): 0 LT Intra Op Stability Ap Translation: <5mm LT Intra Op Stability Varus: <5mm LT Intra Op Stability Valgus: <5mm LT Lateral Release Performed: No LT Intra Op Bone Cement : Antibiotic LT Intra Op Surgical Approach: Midvastus LT Intra Op FX at Index Surgery: No LT Patient Specific Instrument Used: No LT Computer Assisted Case: No Implant Name Type Inv. Item Serial No. Teacher Advisor Lot No. LRB No. Used Action CEMENT,BNE,CMW 1,GNTA,40GM ([id number]) - [id number] IMPLANTS CEMENT,BNE,CMW 1,GNTA,40GM ([id number]) Depuy Stroboroma Operator - [id number] Left 1 Implanted TRAY,ATTUNE,RP,TIB,BASE,SZ7 ([id number]) (AUTOREQ) - [id number] IMPLANTS TRAY,ATTUNE,RP,TIB,BASE,SZ7 ([id number]) (AUTOREQ) Depuy Stroboroma Operator - [id number] Left 1 Implanted INSER,ATTUNE,PS,FEM,SZ7,LT ([id number]) (AUTOREQ) - [id number] IMPLANTS INSER,ATTUNE,PS,FEM,SZ7,LT ([id number]) (AUTOREQ) Depuy Stroboroma Operator - [id number] Left 1 Implanted DIXON,ATTPIPER,MDL,KOKO,41MM ([id number]) (AUTOREQ) - [id number] IMPLANTS DIXON,ATTUNE,MDL,KOKO,41MM ([id number]) (AUTOREQ) Depuy Stroboroma Operator - [id number] Left 1 Implanted INSER,ATTUNE,PS,RP,SZ7,7MM ([id number]) (AUTOREQ) - [id number] IMPLANTS INSER,ATTUNE,PS,RP,SZ7,7MM ([id number]) (AUTOREQ) Depuy Stroboroma Operator - [id number] Left 1 Implanted COMPLICATIONS: None. SPECIMENS: Bone cuts were sent for gross pathology. INDICATIONS: The patient presented to the orthopaedic surgery clinic with severe left knee pain. The x-ray and exam findings are consistent with osteoarthritis of theleft knee. The risks and benefitsof operative treatment including bleeding, infection, need for revision, fracture, damage to nervesand blood vessels, hematoma, DVT, PE, and cardiopulmonary complications, and the patient elected toproceed with surgery. I met with the patient prior to surgery in the pre-op holding area and all questions were answered. Informed consent was signed in the clinic during the pre-op visit and the surgical site was marked with a green caddo in the pre-op area. DESCRIPTION OF PROCEDURE: After careful identification of the patient in the holding area and confirmation of the procedure, the patient was transferred to the operating room. General endotracheal anesthesia was administered by the anesthesiology staff. Femoral nerve blocks had previously been placed in the holding area. Antibiotic prophylaxis was given and a Laurent catheter was placed. The lower extremities were then prepped and draped in the usual sterile fashion. Time-out for safe surgery wasundertaken and all agreed that the site was correct and we should proceed. The limbs were exsanguinated and tourniquet inflated. Using a #10 blade, a midline skin incision was then carried out. Dissection was carried down to the level of the extensor mechanism. Using a medial parapatellar arthrotomy, the knee joint was then entered. The patient was found to have significant osteoarthritis of all three compartments. The anterior horn of the medial meniscus was divided. Amedial subperiosteal peel was then undertaken using Bovie electrocautery. A portion of the patellarfat pad was taken down. The lateral patellofemoral ligaments were released with scissors. The soft tissue was released circumferentially around the patella to allow for easier eversion. Care was taken to protect the extensor mechanism during this release. The knee was then carefully flexed up. Careful attention was paid to the tibial tubercle to be sure that there was no violation of the patellartendon insertion as we flexed. The anterior and posterior cruciate ligaments were then released as well as the anterior horn of the lateral meniscus. The tibia was subluxated forward using a blunt Hohmann and attention was turned to tibial cut. The extramedullary tibial alignment guide was placed and set for a 9 mm resection off the less involved compartment. The alignment noam was set in the center of the ankle joint. Appropriate posterior slope was then set. The guide was then pinned into position. Proximal tibial resection was undertaken using an oscillating saw. Care was taken to protect the medial and lateral collateral ligaments during the cut. The bone was removed and alignment guide was placed with a drop noam. We had excellent alignment. Attention was then turned to the femur. The femoral canal was opened using a starting drill just anterior to the PCL insertion. The canal was irrigated and suctioned prior to insertion of the intramedullary guide noam. This was then placed and set for the appropriate valgus angle of 5 degrees. The distal femoral cut guide was then placed and set for a 9 mm resection. This was then pinned into position. The cut depth was checked with an isreal wing. The oscillating saw was then used to perform thedistal femoral cut. The posterior referencing sizing guide was then placed and pins were set in 3 degrees of external rotation from posterior condyles in line with the transepicondylar axis. The sizing guide was placed and the size chosen that would provide the best fit and avoid anterior notching.Threaded pins were placed and the sizer removed. The cut block was then pinned into position. The anterior cut was performed followed by the posterior cuts. The anterior and posterior chamfer cuts were then performed. Appropriate soft tissue releases were used where necessary to balance them. The notch cutting guidewas then placed taking care to lateralize the femoral component appropriately. It was pinned into position. The notch cut was carried out with reciprocating saw. We then placed the trial femoral component followed by the trial tibia and polyethylene. The knee was brought up to full extension. It was found to have good stability to varus and valgus stresses in both flexion and extension. We then proceeded with the patellar preparation. The patellar thickness was then measured with caliper. We then used freehand technique to remove the articular surface. The patella was measured and the appropriate-sized jig used to prepare the drill holes. Patellar trial was placed and caliper measurement reconfirmed to assure that there was no over-stuffing of the patellofemoral joint. The patellar trial was placed and taken through range of motion. It was found to track well withoutany evidence of liftoff. The trial components were then removed and the final preparation of the tibia was undertaken. The tibia was exposed and the trial placed. It was pinned into position taking care to maintain the appropriate external rotation and adequate tibial coverage. This was then completed using the step drill and broach. All bony surfaces were then thoroughly irrigated using normal saline pulsatile lavage. The components were opened onto the field except for the final polyethylene. Cement mixing was begun on the backtable using vacuum technique. We then placed cement onto the tibial plateau and digitally pressurized it into the bone. We then placed the tibial component and impacted into position using an impactor and mallet. Excess cement was removed with a [place]. We then placed the cement onto the anterior and distal aspects of the femur. The cement was placed on the posterior aspect of the prosthetic condyles. The femoral component was then placed and impacted into position. Excess cement was removed with a [place]. The polyethylene trial was then placed and the knee brought out to full extension where it was held for the entire polymerization time. Cement was then pressurized into the patellar bone and the patellar component placed. The patella was clamped. Excess cement was removed with a [place]. After all cement had hardened, the knee was flexed up and the trial polyethylene removed. We checked the posterior femoral condyles for cement. We also subluxated the tibia forward and checked for any remaining cement. It was removed with an osteotome and rongeurs where necessary. The knee was thoroughly irrigated using normal saline pulsatile lavage. We then placed our trial polyethylene and went through ligament testing both in flexion and extension. We decided on the appropriate polyethylene, it was opened onto the field. It was then inserted and the knee brought out to full extension. It wastaken through a full range of motion and had excellent stability to varus and valgus testing in both flexion and extension. The final alignment was excellent. The patella tracked well without liftoffusing the no thumbs technique. The wound was irrigated once again. A drain was placed through a separate superolateral stab incision and hooked into the suction system. The arthrotomy was then closed using #2 Quill. The deep fat layer was closed with 0 Vicryl. The deep dermal layers were closed using 2-0 vicryl. The skin was then closed using chance. The wound was cleansed, dried, and dressing consisting of Mepilex silver wasapplied. This was then secured with Natalee bandages. The patient was awakened by the anesthesiology staff and transferred to the [facility]. Sequential compression devices were placed. The patient was taken to the postanesthesia care unit in stable condition. There appeared to be no intraoperative complications. Weight bearing status of operative extremity: Weight bearing as tolerated Wound closure: Macon (remove 10-14 days) Dressing changes: Mepilex Silver (Do not remove for 7 days. Dry Dressings PRN after that) Follow-up Plan: As scheduled prior to surgery Anticoagulation: Coumadin 28 days followed by 2 weeks of Aspirin 325mg twice daily Any possible barriers to discharge: Pain management Plan for hospital stay: Standard Anticipated Length of Stay: 2-3 days. Disposition: aroused from sedation, and taken to the recovery room in a stable condition Condition: doing well without problems documented in this encounter Plan of Treatment Scheduled Referrals Name Type Priority Associated Diagnoses Order Schedule Referral for Anticoagulation Monitoring Outpatient Referral Routine S/P total knee arthroplasty, left Ordered: 12/05/2013 documented as of this encounter Procedures Procedure Name Priority Date/Time Associated Diagnosis Comments POCT GLUCOSE Routine 12/05/2013 4:18 PM EDT POCT GLUCOSE Routine 12/05/2013 11:35 AM EDT POCT GLUCOSE Routine 12/05/2013 7:07 AM EDT HEMOGRAM Routine 12/05/2013 4:35 AM EDT DIFFERENTIAL, AUTOMATED Routine 12/05/2013 4:35 AM EDT PROTHROMBIN TIME Routine 12/05/2013 4:35 AM EDT CBC (WITH DIFF) Routine 12/05/2013 4:35 AM EDT BASIC METABOLIC PANEL (NON-FASTING) Routine 12/05/2013 4:35 AM EDT POCT GLUCOSE Routine 12/05/2013 3:55 AM EDT POCT GLUCOSE Routine 12/04/2013 11:43 PM EDT POCT GLUCOSE Routine 12/04/2013 7:29 PM EDT POCT GLUCOSE Routine 12/04/2013 4:12 PM EDT POCT GLUCOSE Routine 12/04/2013 11:41 AM EDT POCT GLUCOSE Routine 12/04/2013 7:07 AM EDT HEMOGRAM Routine 12/04/2013 3:54 AM EDT DIFFERENTIAL, AUTOMATED Routine 12/04/2013 3:54 AM EDT PROTHROMBIN TIME Routine 12/04/2013 3:54 AM EDT CBC (WITH DIFF) Routine 12/04/2013 3:54 AM EDT HEMOGLOBIN A1C Routine 12/04/2013 3:54 AM EDT BASIC METABOLIC PANEL (NON-FASTING) Routine 12/04/2013 3:54 AM EDT POCT GLUCOSE Routine 12/04/2013 3:45 AM EDT POCT GLUCOSE Routine 12/03/2013 11:42 PM EDT POCT GLUCOSE Routine 12/03/2013 7:22 PM EDT POCT GLUCOSE Routine 12/03/2013 5:20 PM EDT POCT GLUCOSE Routine 12/03/2013 4:37 PM EDT POCT GLUCOSE Routine 12/03/2013 4:21 PM EDT POCT GLUCOSE Routine 12/03/2013 11:58 AM EDT POCT GLUCOSE Routine 12/03/2013 7:19 AM EDT HEMOGRAM Routine 12/03/2013 4:21 AM EDT DIFFERENTIAL, AUTOMATED Routine 12/03/2013 4:21 AM EDT PROTHROMBIN TIME Routine 12/03/2013 4:21 AM EDT CBC (WITH DIFF) Routine 12/03/2013 4:21 AM EDT BASIC METABOLIC PANEL (NON-FASTING) Routine 12/03/2013 4:21 AM EDT POCT GLUCOSE Routine 12/03/2013 3:54 AM EDT POCT GLUCOSE Routine 12/03/2013 12:06 AM EDT POCT GLUCOSE Routine 12/02/2013 8:51 PM EDT POCT GLUCOSE Routine 12/02/2013 7:09 PM EDT PROTHROMBIN TIME Routine 12/02/2013 4:46 PM EDT POCT GLUCOSE Routine 12/02/2013 4:11 PM EDT POCT GLUCOSE Routine 12/02/2013 10:06 AM EDT SURGICAL PATHOLOGY REPORT Routine 12/02/2013 9:56 AM EDT SPECIMEN TO PATHOLOGY Routine 12/02/2013 9:31 AM EDT MODIFIER: ATTUNE STABILIZED ROTATING PLATFORM DEPUY 12/02/2013 7:31 AM EDT Osteoarthritis of knee TOTAL KNEE ARTHROPLASTY (WRVU 19.6) 12/02/2013 7:31 AM EDT Osteoarthritis of knee POCT GLUCOSE Routine 12/02/2013 7:26 AM EDT APTT STAT 12/02/2013 7:25 AM EDT PROTHROMBIN TIME STAT 12/02/2013 7:25 AM EDT documented in this encounter Results * POCT Glucose (12/05/2013 4:18 PM EDT) POC Glucose 89 60 - 199 mg/dL [facility] Comment: Supplemental ranges: <140 mg/dL before meals <180 mg/dL all other times of the day Blood specimen (specimen) 12/05/2013 4:18 PM EDT 12/05/2013 4:18 PM EDT Charis Herrera MD POINT OF CARE TEST O HARINDER Performing Organization Address [facility] de Phone Number [facility] * POCT Glucose (12/05/2013 11:35 AM EDT) POC Glucose 100 60 - 199 mg/dL [facility] Comment: Supplemental ranges: <140 mg/dL before meals <180 mg/dL all other times of the day Blood specimen (specimen) 12/05/2013 11:35 AM EDT 12/05/2013 11:35 AM EDT Charis Herrera MD POINT OF CARE TEST O HARINDER Performing Organization Address [facility] Co de Phone Number [facility] * POCT Glucose (12/05/2013 7:07 AM EDT) POC Glucose 105 60 - 199 mg/dL [facility] Comment: Supplemental ranges: <140 mg/dL before meals <180 mg/dL all other times of the day Blood specimen (specimen) 12/05/2013 7:07 AM EDT 12/05/2013 7:07 AM EDT Charis Herrera MD POINT OF CARE TEST O RDERABLES [facility] * (ABNORMAL) Differential, Automated (12/05/2013 4:35 AM EDT) Neutrophils % 54.5 % [facility]ILL[facility]NI[facility] Neutr Abs (ANC) 7.23(H) 1.50 - 6.30 x10(3)/mc L [facility] Lymphocytes % 35.0 % [facility]ILLENNI[facility] Lymphocytes Abs 4.6(H) 1.0 - 3.6 x10(3)/mc L [facility]ILLENNI[facility] Monocytes % 8.2 % [facility]ILLENNI[facility] Monocyte Abs 1.1(H) 0.2 - 1.0 x10(3)/mc L [facility]ILL[facility]NI[facility] Eosinophils % 1.6 % [facility]ILL[facility]NI[facility] Eosinophils Abs 0.2 0.0 - 0.5 x10(3)/mc L [facility]ILLENNI[facility] Basophils % 0.4 % [facility] MILLENNI[facility] Basophils Abs 0.0 0.0 - 0.2 x10(3)/mc L [facility]ILLENNI[facility] Immature Gran % 0.30 % [facility] Comment: Immature granulocytes(IG's)percentage and absolute count will include metamyelocytes, myelocytes, and promyelocytes. Blood smears from CBCs yielding IG's will be scanned manually for concordance. If this scan disagrees with the automated IG or if promyelocytes are noted, a manual differential will be performed. Alexa Gran Abs 0.04 0.00 - 0.05 x10(3)/mc L [facility] Blood specimen (specimen) 12/05/2013 4:35 AM EDT 12/05/2013 4:43 AM EDT Narrative Resulting Agency Comment Spec In Lab Charis Herrera MD HEMATOLOGY ORDERABLE S [facility] * (ABNORMAL) Hemogram (12/05/2013 4:35 AM EDT) WBC 13.3(H) 4.0 - 10.0 x10(3)/mcL [facility]ILLENNIUM RBC 3.72(L) 4.63 - 6.08 x10(6)/mcL [facility]ILLENNI[facility] Hemoglobin 11.1(L) 13.7 - 17.5 gm/dL [facility] Hematocrit 32.2(L) 40.0 - 51.0 % [facility] MILLENNIUM MCV 86.6 79.0 - 92.0 fL [facility]ILLENNI[facility] MCH 29.8 25.6 - 32.2 pg C[facility] MILLENNIUM MCHC 34.5 32.0 - 36.5 gm/dL [facility] Platelets 221 145 - 370 x10(3)/mcL [facility] MILLENNIUM RDWSD 39.5 35.0 - 46.0 fL [facility] MILLENNIUM RDWCV 12.5 10.9 - 14.4 % [facility] MILLENNIUM MPV 11.2 9.0 - 12.0 fL [facility]ILL[facility]NI[facility] Blood specimen (specimen) 12/05/2013 4:35 AM EDT 12/05/2013 4:43 AM EDT Narrative Resulting Agency Comment Spec In Lab Charis Herrera MD HEMATOLOGY ORDERABLE S [facility] * Prothrombin Time (12/05/2013 4:35 AM EDT) PT 14.7 12.5 - 15.5 sec [facility]ERN[facility] MILLENNIUM Comment: [facility] Transfusion Committee Guidelines: INR less than 2.0, PTT less than OR equal to 43.5 seconds, or Fibrinogen greater than or equal to 100 mg/dl indicate adequate procoagulant activity for hemostasis in patients without underlying bleeding disorders. INR 1.1 0.9 - 1.1 [facility] MILLENNIUM Blood specimen (specimen) 12/05/2013 4:35 AM EDT 12/05/2013 4:43 AM EDT Narrative Resulting Agency Comment Spec In Lab Charis Herrera MD HEMATOLOGY ORDERABLE S [facility] LOVEI[facility] * (ABNORMAL) Basic Metabolic Panel (non-fasting) (12/05/2013 4:35 AM EDT) Glucose Lvl 96 60 - 199 mg/dL [facility] Comment:Diabetes: >=200 mg/d L plus symptoms BUN 11 10 - 20 mg/dL [facility]ILLENNI[facility] Creatinine 0.72(L) 0.80 - 1.50 mg/dL [facility]ILLENNI[facility] Comment: Please note that the pediatric reference intervals supplied above were not validated at [facility]. Results from pediatric patients should be interpreted in conjunction to the patient's age, height and muscle mass. Sodium 135 135 - 145 mmol/L [facility] MILLENNIUM Potassium 3.9 3.5 - 5.0 mmol/L [facility] MILLENNIUM Comment: Please note: ??Patients with WBC >100,000 may have falsely elevated Potassium levels. ??For accurate Potassium quantification in these patients send serum separator tube (gold top) for subsequent determinations. ??Contact the Clinical Chemistry Laboratory if there are any questions. Chloride 93(L) 98 - 107 mmol/L [facility] MILLENNIUM CO2 27 22 - 31 mmol/L [facility] MILLENNI[facility] Anion Gap 15 5 - 15 mmol/L [facility] MILLENNIUM Calcium 8.9 8.5 - 10.5 mg/dL [facility] MILLENNIUM Estimated GFR >60 >=60 [...] the following links into your internet browser. [email or web address] Blood specimen (specimen) 12/05/2013 4:35 AM EDT 12/05/2013 4:43 AM EDT Narrative Resulting Agency Comment Spec In Lab Charis Herrera MD CHEMISTRY ORDERABLES Performing Organization Address [facility] de Phone Number [facility] * POCT Glucose (12/05/2013 3:55 AM EDT) POC Glucose 104 60 - 199 mg/dL [facility] Comment: Supplemental ranges: <140 mg/dL before meals <180 mg/dL all other times of the day Blood specimen (specimen) 12/05/2013 3:55 AM EDT 12/05/2013 3:55 AM EDT Charis Herrera MD POINT OF CARE TEST O RDERABLES Performing Organization Address [facility] Phone Number [facility] * POCT Glucose (12/04/2013 11:43 PM EDT) POC Glucose 94 60 - 199 mg/dL [facility] Comment: Supplemental ranges: <140 mg/dL before meals <180 mg/dL all other times of the day Blood specimen (specimen) 12/04/2013 11:43 PM EDT 12/04/2013 11:43 PM EDT Charis Herrera MD POINT OF CARE TEST O RDERABLES Performing Organization Address [facility] de Phone Number [facility] * POCT Glucose (12/04/2013 7:29 PM EDT) POC Glucose 120 60 - 199 mg/dL [facility] Comment: Supplemental ranges: <140 mg/dL before meals <180 mg/dL all other times of the day Blood specimen (specimen) 12/04/2013 7:29 PM EDT 12/04/2013 7:29 PM EDT Charis Herrera MD POINT OF CARE TEST O RDERABLES Performing Organization Address [facility] Co de Phone Number [facility] * POCT Glucose (12/04/2013 4:12 PM EDT) POC Glucose 108 60 - 199 mg/dL [facility] Comment: Supplemental ranges: <140 mg/dL before meals <180 mg/dL all other times of the day Blood specimen (specimen) 12/04/2013 4:12 PM EDT 12/04/2013 4:12 PM EDT Charis Herrera MD POINT OF CARE TEST O RDERATESSA Performing Organization Address [facility] de Phone Number [facility] * POCT Glucose (12/04/2013 11:41 AM EDT) POC Glucose 136 60 - 199 mg/dL [facility] Comment: Supplemental ranges: <140 mg/dL before meals <180 mg/dL all other times of the day Blood specimen (specimen) 12/04/2013 11:41 AM EDT 12/04/2013 11:41 AM EDT Narrative Authorizing Provider Result Daniela Herrera MD POINT OF CARE TEST O HARINDER Performing Organization Address [facility] de Phone Number [facility] * POCT Glucose (12/04/2013 7:07 AM EDT) POC Glucose 126 60 - 199 mg/dL [facility] Comment: Supplemental ranges: <140 mg/dL before meals <180 mg/dL all other times of the day Blood specimen (specimen) 12/04/2013 7:07 AM EDT 12/04/2013 7:07 AM EDT Narrative Authorizing Provider Result Daniela Herrera MD POINT OF CARE TEST O RDERATESSA Performing Organization Address [facility] de Phone Number [facility] * (ABNORMAL) Hemoglobin A1c (12/04/2013 3:54 AM EDT) Hemoglobin A1C 6.7(H) <=5.6 % NICOLAS Bradley [facility] Comment: Reference Range: 4.3 - 5.6% 5.7 [...] Mellitus, Diabetes Care 2013; 36: Suppl. 1, S67-58 Est Avg Gluc 146 mg/dL [facility] Comment: eAG equivalents for HbA1c percentages: HbA1c(%) ?eAG(mg/dL) 6.0 ?126 6.5 ?140 7.0 ?154 7.5 ?169 8.0 ?183 8.5 ?197 9.0 ?212 9.5 ?226 10.0 ? 240 Limitations: The eAG calculation has not been validated on women, individuals below 18 years old and above 70 years old, and individuals with hemoglobinopathies. Additional resources are available on the ADA website: [email or web address] Blake KENNEY, Charley J, Gian R, et al. ??Translating the A1C assay into estimated average glucose values. ??Diabetes Care 2008:31(8):8167-5350. Blood specimen (specimen) 12/04/2013 3:54 AM EDT 12/04/2013 10:05 AM EDT Narrative Resulting Agency Comment Spec In Lab Charis Herrera MD CHEMISTRY ORDERABLES [facility] * (ABNORMAL) Differential, Automated (12/04/2013 3:54 AM EDT) Neutrophils % 56.6 % CERNER MILLENNIUM Neutr Abs (ANC) 8.51(H) 1.50 - 6.30 x10(3)/mc L [facility] MILLENNIUM Lymphocytes % 35.0 % [facility] MILLENNIUM Lymphocytes Abs 5.3(H) 1.0 - 3.6 x10(3)/mc L [facility] MILLENNIUM Monocytes % 7.4 % [facility] MILLENNIUM Monocyte Abs 1.1(H) 0.2 - 1.0 x10(3)/mc L [facility] MILLENNIUM Eosinophils % 0.6 % [facility] MILLENNIUM Eosinophils Abs 0.1 0.0 - 0.5 x10(3)/mc L [facility] MILLENNIUM Basophils % 0.2 % [facility]ERN[facility] MILLENNIUM Basophils Abs 0.0 0.0 [...] differential will be performed. Alexa Gran Abs 0.03 0.00 - 0.05 x10(3)/mc L [facility] MILLENNIUM Blood specimen (specimen) 12/04/2013 3:54 AM EDT 12/04/2013 4:27 AM EDT Narrative Resulting Agency Comment Spec In Lab Charis Herrera MD HEMATOLOGY ORDERABLE S [facility]ILLENNIUM * (ABNORMAL) Hemogram (12/04/2013 3:54 AM EDT) WBC 15.0(H) 4.0 - 10.0 x10(3)/mcL [facility] MILLENNIUM RBC 3.50(L) 4.63 - 6.08 x10(6)/mcL [facility] MILLENNIUM Hemoglobin 10.3(L) 13.7 - 17.5 gm/dL [facility] MILLENNIUM Hematocrit 30.2(L) 40.0 - 51.0 % [facility] MILLENNIUM MCV 86.3 79.0 - 92.0 fL [facility] MILLENNIUM MCH 29.4 25.6 - 32.2 pg CERNER MILLENNIUM MCHC 34.1 32.0 - 36.5 gm/dL [facility]ERN[facility] MILLENNIUM Platelets 212 145 - 370 x10(3)/mcL CERNER MILLENNIUM RDWSD 39.2 35.0 - 46.0 fL [facility] MILLENNIUM RDWCV 12.5 10.9 - 14.4 % CERNER MILLENNIUM MPV 11.4 9.0 - 12.0 fL [facility] Blood specimen (specimen) 12/04/2013 3:54 AM EDT 12/04/2013 4:27 AM EDT Narrative Resulting Agency Comment Spec In Lab Charis Herrera MD HEMATOLOGY ORDERABLE S Performing Organization Address [facility] de Phone Number [facility] RAENNIUM * Prothrombin Time (12/04/2013 3:54 AM EDT) PT 13.2 12.5 - 15.5 sec [facility] MILLENNIUM Comment: [facility] Transfusion Committee Guidelines: INR less than 2.0, PTT less than OR equal to 43.5 seconds, or Fibrinogen greater than or equal to 100 mg/dl indicate adequate procoagulant activity for hemostasis in patients without underlying bleeding disorders. INR 0.9 0.9 - 1.1 [facility] MILLENNIUM Blood specimen (specimen) 12/04/2013 3:54 AM EDT 12/04/2013 4:27 AM EDT Narrative Resulting Agency Comment Spec In Lab Charis Herrera MD HEMATOLOGY ORDERABLE S Performing Organization Address [facility] Co de Phone Number [facility] * (ABNORMAL) Basic Metabolic Panel (non-fasting) (12/04/2013 3:54 AM EDT) Glucose Lvl 105 60 - 199 mg/dL [facility] MILLENNIUM Comment:Diabetes: >=200 mg/d L plus symptoms BUN 10 10 - 20 mg/dL [facility] MILLENNIUM Creatinine 0.80 0.80 - 1.50 mg/dL [facility] MILLENNIUM Comment: Please note that the pediatric reference intervals supplied above were not validated at [facility]. Results from pediatric patients should be interpreted in conjunction to the patient's age, height and muscle mass. Sodium 133(L) 135 - 145 mmol/L C[facility] MILLENNIUM Potassium 3.6 3.5 - 5.0 mmol/L [facility] MILLENNIUM Comment: Please note: ??Patients with WBC >100,000 may have falsely elevated Potassium levels. ??For accurate Potassium quantification in these patients send serum separator tube (gold top) for subsequent determinations. ??Contact the Clinical Chemistry Laboratory if there are any questions. Chloride 93(L) 98 - 107 mmol/L [facility] MILLENNIUM CO2 30 22 - 31 mmol/L [facility] MILLENNIUM Anion Gap 10 5 - 15 mmol/L [facility] MILLENNIUM Calcium 8.6 8.5 - 10.5 mg/dL [facility] MILLENNIUM Estimated GFR >60 >=60 [...] the following links into your internet browser. [email or web address] Blood specimen (specimen) 12/04/2013 3:54 AM EDT 12/04/2013 4:27 AM EDT Narrative Resulting Agency Comment Spec In Lab Charis Herrera MD CHEMISTRY ORDERABLES [facility] * POCT Glucose (12/04/2013 3:45 AM EDT) POC Glucose 115 60 - 199 mg/dL [facility] MILLENNIUM Comment: Supplemental ranges: <140 mg/dL before meals <180 mg/dL all other times of the day Blood specimen (specimen) 12/04/2013 3:45 AM EDT 12/04/2013 3:45 AM EDT Charis Herrera MD POINT OF CARE TEST O RDERATESSA Performing Organization Address [facility] Co de Phone Number [facility] * POCT Glucose (12/03/2013 11:42 PM EDT) POC Glucose 115 60 - 199 mg/dL [facility] Comment: Supplemental ranges: <140 mg/dL before meals <180 mg/dL all other times of the day Blood specimen (specimen) 12/03/2013 11:42 PM EDT 12/03/2013 11:42 PM EDT Charis Herrera MD POINT OF CARE TEST O RDERATESSA Performing Organization Address [facility] de Phone Number [facility] * POCT Glucose (12/03/2013 7:22 PM EDT) POC Glucose 102 60 - 199 mg/dL [facility] Comment: Supplemental ranges: <140 mg/dL before meals <180 mg/dL all other times of the day Blood specimen (specimen) 12/03/2013 7:22 PM EDT 12/03/2013 7:22 PM EDT Charis Herrera MD POINT OF CARE TEST O RDERATESSA Performing Organization Address [facility] de Phone Number [facility] * POCT Glucose (12/03/2013 5:20 PM EDT) POC Glucose 115 60 - 199 mg/dL [facility] Comment: Supplemental ranges: <140 mg/dL before meals <180 mg/dL all other times of the day Blood specimen (specimen) 12/03/2013 5:20 PM EDT 12/03/2013 5:20 PM EDT Charis Herrera MD POINT OF CARE TEST O RDERABLES Performing Organization Address [facility] Co de Phone Number [facility] * POCT Glucose (12/03/2013 4:37 PM EDT) POC Glucose 81 60 - 199 mg/dL [facility] Comment: Supplemental ranges: <140 mg/dL before meals <180 mg/dL all other times of the day Blood specimen (specimen) 12/03/2013 4:37 PM EDT 12/03/2013 4:37 PM EDT Charis Herrera MD POINT OF CARE TEST O HARINDER Performing Organization Address [facility] de Phone Number [facility] * POCT Glucose (12/03/2013 4:21 PM EDT) POC Glucose 70 60 - 199 mg/dL [facility] Comment: Supplemental ranges: <140 mg/dL before meals <180 mg/dL all other times of the day Blood specimen (specimen) 12/03/2013 4:21 PM EDT 12/03/2013 4:21 PM EDT Charis Herrera MD POINT OF CARE TEST O HARINDER Performing Organization Address [facility] de Phone Number [facility] * POCT Glucose (12/03/2013 11:58 AM EDT) POC Glucose 119 60 - 199 mg/dL [facility] Comment: Supplemental ranges: <140 mg/dL before meals <180 mg/dL all other times of the day Blood specimen (specimen) 12/03/2013 11:58 AM EDT 12/03/2013 11:58 AM EDT Charis Herrera MD POINT OF CARE TEST O RDERATESSA Performing Organization Address [facility] de Phone Number [facility] * POCT Glucose (12/03/2013 7:19 AM EDT) POC Glucose 139 60 - 199 mg/dL [facility] Comment: Supplemental ranges: <140 mg/dL before meals <180 mg/dL all other times of the day Blood specimen (specimen) 12/03/2013 7:19 AM EDT 12/03/2013 7:19 AM EDT Charis Herrera MD POINT OF CARE TEST O RDERABLES [facility] * (ABNORMAL) Differential, Automated (12/03/2013 4:21 AM EDT) Neutrophils % 72.1(H) 34.0 - 71.0 % [facility] MILLENNIUM Neutr Abs (ANC) 9.42(H) 1.50 - 6.30 x10(3)/mc L [facility] MILLENNIUM Lymphocytes % 21.5 19.0 - 53.0 % C[facility]ER MILLENNIUM Lymphocytes Abs 2.8 1.0 - 3.6 x10(3)/mc L [facility] MILLENNIUM Monocytes % 6.1 4.0 - 13.0 % CERNER MILLENNIUM Monocyte Abs 0.8 0.2 - 1.0 x10(3)/mc L [facility] MILLENNIUM Eosinophils % 0.0 0.0 - 7.0 % C[facility]ER MILLENNIUM Eosinophils Abs 0.0 0.0 - 0.5 x10(3)/mc L [facility] MILLENNIUM Basophils % 0.1 0.0 - 2.0 % [facility]ERNER MILLENNIUM Basophils Abs 0.0 0.0 - 0.2 x10(3)/mc L [facility] MILLENNIUM Immature Gran % 0.20 0.00 - 0.66 % [facility] MILLENNIUM Comment: Immature granulocytes(IG's)percentage and absolute count will include metamyelocytes, myelocytes, and promyelocytes. Blood smears from CBCs yielding IG's will be scanned manually for concordance. If this scan disagrees with the automated IG or if promyelocytes are noted, a manual differential will be performed. Alexa Gran Abs 0.02 0.00 - 0.05 x10(3)/mc L [facility] MILLENNIUM Blood specimen (specimen) 12/03/2013 4:21 AM EDT 12/03/2013 4:27 AM EDT Narrative Resulting Agency Comment Spec In Lab Chairs Herrera MD HEMATOLOGY ORDERABLE S Performing Organization Address [facility]/ZIP Co de Phone Number [facility] * (ABNORMAL) Hemogram (12/03/2013 4:21 AM EDT) WBC 13.0(H) 4.0 - 10.0 x10(3)/mcL [facility]ERNER MILLENNIUM RBC 3.59(L) 4.63 - 6.08 x10(6)/mcL [facility] MILLENNIUM Hemoglobin 10.5(L) 13.7 - 17.5 gm/dL [facility] MILLENNIUM Hematocrit 30.7(L) 40.0 - 51.0 % CERNER MILLENNIUM MCV 85.5 79.0 - 92.0 fL CERNER MILLENNIUM MCH 29.2 25.6 - 32.2 pg CERNER MILLENNIUM MCHC 34.2 32.0 - 36.5 gm/dL [facility] MILLENNIUM Platelets 232 145 - 370 x10(3)/mcL CERNER MILLENNIUM RDWSD 38.7 35.0 - 46.0 fL CERNER MILLENNIUM RDWCV 12.4 10.9 - 14.4 % CERNER MILLENNIUM MPV 10.9 9.0 - 12.0 fL [facility] MILLENNIUM Blood specimen (specimen) 12/03/2013 4:21 AM EDT 12/03/2013 4:27 AM EDT Narrative Resulting Agency Comment Spec In Lab Charis Herrera MD HEMATOLOGY ORDERABLE S Performing Organization Address [facility] Co de Phone Number [facility] * Prothrombin Time (12/03/2013 4:21 AM EDT) PT 13.8 12.5 - 15.5 sec CERNER MILLENNIUM Comment: [facility] Transfusion Committee Guidelines: INR less than 2.0, PTT less than OR equal to 43.5 seconds, or Fibrinogen greater than or equal to 100 mg/dl indicate adequate procoagulant activity for hemostasis in patients without underlying bleeding disorders. INR 1.0 0.9 - 1.1 CERNER MILLENNIUM Blood specimen (specimen) 12/03/2013 4:21 AM EDT 12/03/2013 4:27 AM EDT Narrative Resulting Agency Comment Spec In Lab Charis Herrera MD HEMATOLOGY ORDERABLE S CERJERE LOVEIUM * (ABNORMAL) Basic Metabolic Panel (non-fasting) (12/03/2013 4:21 AM EDT) Glucose Lvl 169 60 - 199 mg/dL CERNER MILLENNIUM Comment:Diabetes: >=200 mg/d L plus symptoms BUN 13 10 - 20 mg/dL CERNER MILLENNIUM Creatinine 0.81 0.80 - 1.50 mg/dL CERNER MILLENNIUM Comment: Please note that the pediatric reference intervals supplied above were not validated at [facility] [place]. Results from pediatric patients should be interpreted in conjunction to the patient's age, height and muscle mass. Sodium 135 135 - 145 mmol/L CERNER MILLENNIUM Potassium 4.5 3.5 - 5.0 mmol/L CERNER MILLENNIUM Comment: Please note: ??Patients with WBC >100,000 may have falsely elevated Potassium levels. ??For accurate Potassium quantification in these patients send serum separator tube (gold top) for subsequent determinations. ??Contact the Clinical Chemistry Laboratory if there are any questions. Chloride 97(L) 98 - 107 mmol/L CERNER MILLENNIUM CO2 24 22 - 31 mmol/L CERNER MILLENNIUM Anion Gap 14 5 - 15 mmol/L CERNER MILLENNIUM Calcium 8.6 8.5 - 10.5 mg/dL CERNER MILLENNIUM Estimated GFR >60 >=60 [...] the following links into your internet browser. [email or web address] Blood specimen (specimen) 12/03/2013 4:21 AM EDT 12/03/2013 4:27 AM EDT Narrative Resulting Agency Comment Spec In Lab Charis Herrera MD CHEMISTRY ORDERABLES Performing Organization Address [facility] de Phone Number [facility] * POCT Glucose (12/03/2013 3:54 AM EDT) POC Glucose 185 60 - 199 mg/dL [facility] Comment: Supplemental ranges: <140 mg/dL before meals <180 mg/dL all other times of the day Blood specimen (specimen) 12/03/2013 3:54 AM EDT 12/03/2013 3:54 AM EDT Charis Herrera MD POINT OF CARE TEST O RDERABLES Performing Organization Address [facility] [place] Phone Number [facility] * POCT Glucose (12/03/2013 12:06 AM EDT) POC Glucose 154 60 - 199 mg/dL [facility] Comment: Supplemental ranges: <140 mg/dL before meals <180 mg/dL all other times of the day Blood specimen (specimen) 12/03/2013 12:06 AM EDT 12/03/2013 12:06 AM EDT Charis Herrera MD POINT OF CARE TEST O RDERABLES Performing Organization Address [facility] de Phone Number [facility] * POCT Glucose (12/02/2013 8:51 PM EDT) POC Glucose 164 60 - 199 mg/dL [facility] Comment: Supplemental ranges: <140 mg/dL before meals <180 mg/dL all other times of the day Blood specimen (specimen) 12/02/2013 8:51 PM EDT 12/02/2013 8:51 PM EDT Charis Herrera MD POINT OF CARE TEST O RDERABLES Performing Organization Address [facility] Co de Phone Number [facility] * (ABNORMAL) POCT Glucose (12/02/2013 7:09 PM EDT) POC Glucose 226(H) 60 - 199 mg/dL [facility] Comment: Supplemental ranges: <140 mg/dL before meals <180 mg/dL all other times of the day Blood specimen (specimen) 12/02/2013 7:09 PM EDT 12/02/2013 7:09 PM EDT Charis Herrera MD POINT OF CARE TEST O HARINDER Performing Organization Address [facility] de Phone Number [facility] * Prothrombin Time (12/02/2013 4:46 PM EDT) PT 13.0 12.5 - 15.5 sec [facility] Comment: [facility] Transfusion Committee Guidelines: INR less than 2.0, PTT less than OR equal to 43.5 seconds, or Fibrinogen greater than or equal to 100 mg/dl indicate adequate procoagulant activity for hemostasis in patients without underlying bleeding disorders. INR 0.9 0.9 - 1.1 [facility] Blood specimen (specimen) 12/02/2013 4:46 PM EDT 12/02/2013 4:53 PM EDT Narrative Resulting Agency Comment Spec In Lab Charis Herrera MD HEMATOLOGY ORDERABLE S Performing Organization Address [facility] de Phone Number [facility] * (ABNORMAL) POCT Glucose (12/02/2013 4:11 PM EDT) POC Glucose 207(H) 60 - 199 mg/dL [facility] Comment: Supplemental ranges: <140 mg/dL before meals <180 mg/dL all other times of the day Blood specimen (specimen) 12/02/2013 4:11 PM EDT 12/02/2013 4:11 PM EDT Charis Herrera MD POINT OF CARE TEST O RDERATESSA Performing Organization Address [facility] de Phone Number [facility] * POCT Glucose (12/02/2013 10:06 AM EDT) POC Glucose 165 60 - 199 mg/dL [facility] Comment: Supplemental ranges: <140 mg/dL before meals <180 mg/dL all other times of the day Blood specimen (specimen) 12/02/2013 10:06 AM EDT 12/02/2013 10:06 AM EDT Charis Herrera MD POINT OF CARE TEST O RDERABLES [facility] * Surgical Pathology Report (12/02/2013 9:56 AM EDT) Pathologist [facility] Surgical Pathology Report ? [facility] ? Provider: ?? CHARIS HERRERA ?? Pt. Name: ?? ZACK SOUSA ? Acc #: ?[id number] ?Pt. ? Col Date: ?? 12/02/2013 ? /Sex: ?1970,(43 years),Male ? Rec Date: ?? 12/02/2013 ? LOC: ?3WST ? SURGICAL PATHOLOGY ? ---Pathologic Diagnosis--- ? A - Articular bone and soft tissue consistent with osteoarthritis, left ? knee bone and soft tissue. ?Gross surgical pathology examination. ? CR-0 ? 12/02/13 ? PPS ? 12/03/13 Verified by: ? Aleida Bonilla DO ? Pathologist ? (Electronic Signature) ? The attending pathologist whose signature appears on this report has ? reviewed all diagnostic slides and has edited the gross and/or ? microscopic portion of the report in rendering the final pathologic ? diagnosis. ? ---Gross Description--- ? A - Labeled/Fixativ e: Left knee bone and tissue, fresh. ? Quantity/Size: Multiple, 10.3 x 9.3 x 3.7 cm in aggregate. ? Tissue Description: Fragments of yellow-white, hard, irregular bone, ? cartilage and soft tissue. ? Articular Surface: Granular, hodge-pink. ? Eburnation: Present. ? Osteophytes: Present. ? Sections/Proces sing: No sections are submitted. ??pps ? ---Clinical Information--- ? Specimen Submitted: ? A - Left knee bone and tissue ? Clinical History: ? Left DJD ? Clinical Diagnosis: ? Left DJD RANDY RARIP 12/02/2013 9:56 AM EDT Charis Herrera MD PATHOLOGY/CYTOLOGY O HARINDER Performing Organization Address [facility] de Phone Number [facility] * Specimen to Pathology (surgical or derm) (12/02/2013 9:31 AM EDT) AP Specimen 12/02/2013 9:31 AM EDT 12/02/2013 9:31 AM EDT Narrative RANDY RACLARICEIUM - 12/02/2013 9:31 AM EDT Specimen requisition ordered. ??Separate Pathology report to follow Charis Herrera MD PATHOLOGY/CYTOLOGY O HARINDER Performing Organization Address [facility] de Phone Number [facility] * POCT Glucose (12/02/2013 7:26 AM EDT) POC Glucose 139 60 - 199 mg/dL RANDY MORALES Comment: Supplemental ranges: <140 mg/dL before meals <180 mg/dL all other times of the day Blood specimen (specimen) 12/02/2013 7:26 AM EDT 12/02/2013 7:26 AM EDT Charsi Herrera MD POINT OF CARE TEST O RDERABLES Performing Organization Address [facility] Co de Phone Number RANDY MORALES * APTT (12/02/2013 7:25 AM EDT) PTT 29 25 - 35 sec CERJERE KNAPPENNIUM Comment: Recommended therapeutic PTT range for full dose unfractionated heparin is 80-114 seconds. Blood specimen (specimen) 12/02/2013 7:25 AM EDT 12/02/2013 7:27 AM EDT Narrative Resulting Agency Comment Spec In Lab Sachi Fontanez MD HEMATOLOGY ORDERABLE S Performing Organization Address [facility] Co de Phone Number RANDY MORALES * Prothrombin Time (12/02/2013 7:25 AM EDT) PT 12.7 12.5 - 15.5 sec RANDY MILLENNIUM Comment: [facility] Transfusion Committee Guidelines: INR less than 2.0, PTT less than OR equal to 43.5 seconds, or Fibrinogen greater than or equal to 100 mg/dl indicate adequate procoagulant activity for hemostasis in patients without underlying bleeding disorders. INR 0.9 0.9 - 1.1 RANDY RAENNIUM Blood specimen (specimen) 12/02/2013 7:25 AM EDT 12/02/2013 7:27 AM EDT Narrative Resulting Agency Comment Spec In Lab Sachi Fontanez MD HEMATOLOGY ORDERABLE S Performing Organization Address [facility] Co de Phone Number RANDY MORALES documented in this encounter Visit Diagnoses Diagnosis S/P Left total knee arthroplasty, 12/02/13. Javier- Primary Knee joint replacement by other means S/P total knee arthroplasty, left documented in this encounter Administered Medications Inactive Administered Medications - up to 3 most recent administrations Medication Order MAR Action Action Date Dose Rate Site acetaminophen (TYLENOL) tablet 1,000 mg 1,000 mg, Oral, EVERY 8 HOURS SCHEDULED, First dose on Mon12/02/13 at 1400, Until Discontinued, Maximum dose of acetaminophen is 4000 mg from all sources in 24 hours., Routine Given 12/04/2013 6:05 AM EDT 1,000 mg Given 12/03/2013 9:18 PM EDT 1,000 mg Given 12/03/2013 1:22 PM EDT 1,000 mg atorvastatin (LIPITOR) tablet 10 mg 10 mg, Oral, EVERY EVENING, First dose on Mon12/02/13 at 1900, Until Discontinued, Interchanged for pravastatin 20mg daily per Pharmacy and Therapeutics (P&T) Committee therapeutic interchange policy., Routine Given 12/05/2013 5:03 PM EDT 10 mg Given 12/04/2013 4:55 PM EDT 10 mg Given 12/03/2013 5:19 PM EDT 10 mg bisacodyl (DULCOLAX) EC tablet 10 mg 10 mg, Oral, 2 TIMES DAILY PRN, Starting on Mon12/02/13 at 1613, Until Mon12/05/13 at 1937, Constipation, Administer if needed per patient's routine or if no bowel movement within 48 hours, Routine Given 12/05/2013 11:47 AM EDT 10 mg ceFAZolin (ANCEF) 1g in dextrose 5% 50mL 1,000 mg (1 g), Intravenous, EVERY 8 HOURS, 3 doses, First dose on Mon12/02/13 at 1030, Last dose on Mon12/03/13 at 0230, Administer over 30 Minutes, Adjust to 4 hours from intraoperative dose. * Beta-lactam based antibiotics (eg. Ampicillin, Cefazolin, Aztreonam) should be administered within 4 hours of the preceding intraoperative dose. * Vancomycin, Flouroquinolones, Clindamycin, Gentamicin, and Metronidazole should be administered within 8 hours of the preceding intraoperative dose., Recovery (Recovery-Hospital Unit), Indication for (Active or Suspected): Prophylaxis Given 12/03/2013 2:28 AM EDT 1,000 mg 100 mL/ hr Given 12/02/2013 6:10 PM EDT 1,000 mg 100 mL/hr Given 12/02/2013 10:51 AM EDT 1,000 mg 100 mL/hr diaZEPam (VALIUM) tablet 5 mg 5 mg, Oral, ONCE, 1 dose, On Mon12/04/13 at 0030, Routine Given 12/04/2013 12:19 AM EDT 5 mg diaZEPam (VALIUM) tablet 5 mg 5 mg, Oral, EVERY 6 HOURS PRN, Starting on Mon12/04/13 at 0940, Until Henny 12/05/13 at 1937, Anxiety, muscle spasms, Routine Given 12/05/2013 8:08 AM EDT 5 mg Given 12/04/2013 6:22 PM EDT 5 mg enoxaparin (LOVENOX) injection 40 mg 40 mg, Subcutaneous, ONCE, 1 dose, On Mon12/04/13 at 1000, Routine Given 12/04/2013 10:55 AM EDT 40 mg enoxaparin (LOVENOX) injection 40 mg 40 mg, Subcutaneous, ONCE, 1 dose, On Mon12/05/13 at 1000, Routine Given 12/05/2013 10:40 AM EDT 40 mg esomeprazole (NexIUM) capsule 40 mg 40 mg, Oral, DAILY, First dose on Mon12/02/13 at 1630, Until Discontinued, Routine Given 12/05/2013 8:07 AM EDT 40 mg Given 12/04/2013 8:19 AM EDT 40 mg Given 12/03/2013 8:19 AM EDT 40 mg fentaNYL (DURAGESIC) 50 mcg/hr patch 1 patch 1 patch, Transdermal, EVERY 72 HOURS, First dose on Mon12/04/13 at 1500, Until Discontinued, Place fentaNYL patch, Routine Patch Applied 12/04/2013 2:34 PM EDT 1 patch 15- Thigh Anterior (Left) fentaNYL (PF) 50 mcg/mL injection 1 dose, Starting on Mon12/04/13 at 0001, Until Mon12/04/13 at 0011, NARESH COER: cabinet override fentaNYL 50 mcg/mL [employer] 30 mL Intravenous, [employer] ONLY, Starting on Mon12/04/13 at 0045, Until Mon12/04/13 at 0200 New Syringe/Cartridge 12/04/2013 12:50 AM EDT 1,500 mcg fentaNYL 50 mcg/mL [employer] 30 mL Intravenous, [employer] ONLY, Starting on Mon12/04/13 at 0230, Until Henny 12/05/13 at 0759 New Syringe/Cartridge 12/04/2013 10:00 PM EDT 1,500 mcg New Syringe/Cartridge 12/04/2013 11:29 AM EDT 1,500 mcg Rate/Dose Change 12/04/2013 11:25 AM EDT 1,500 mcg fentaNYL 50mcg/mL injection 50 mcg, Intravenous, ONCE, 1 dose, On Mon12/02/13 at 2200, Routine Given 12/02/2013 9:51 PM EDT 50 mcg fentaNYL 50mcg/mL injection 50 mcg, Intravenous, ONCE, 1 dose, On Mon12/03/13 at 1915, Routine Given 12/03/2013 6:57 PM EDT 50 mcg fentaNYL 50mcg/mL injection 50 mcg, Intravenous, ONCE, 1 dose, On Mon12/03/13 at 2015, Routine Given 12/03/2013 8:02 PM EDT 50 mcg fentaNYL 50mcg/mL injection 50 mcg, Intravenous, ONCE, 1 dose, On Mon12/03/13 at 2130, Routine Given 12/03/2013 9:17 PM EDT 50 mcg fentaNYL 50mcg/mL injection 75 mcg, Intravenous, ONCE, 1 dose, On Mon12/04/13 at 0015, Routine Given 12/04/2013 12:11 AM EDT 75 mcg glipiZIDE (GLUCOTROL) CR tablet 10 mg 10 mg, Oral, DAILY, First dose on Mon12/02/13 at 1900, Until Discontinued, Routine Given 12/05/2013 8:07 AM EDT 10 mg Given 12/04/2013 8:19 AM EDT 10 mg Given 12/03/2013 8:21 AM EDT 10 mg hydrochlorothiazide (HYDRODIURIL) tablet 25 mg 25 mg, Oral, DAILY, First dose on Mon12/03/13 at 0900, Until Discontinued, Routine Given 12/05/2013 8:07 AM EDT 25 mg Given 12/04/2013 8:19 AM EDT 25 mg Given 12/03/2013 8:19 AM EDT 25 mg HYDROmorphone (DILAUDID) 1 mg/mL [employer] 30 mL Intravenous, SAL[employer] ONLY, Starting on Mon12/02/13 at 1030, Until Mon12/02/13 at 2038, Recovery (Recovery-Hospital Unit) New Syringe/Cartridge 12/02/2013 10:20 AM EDT 30 mg HYDROmorphone (DILAUDID) 1 mg/mL [employer] 30 mL Intravenous, SAL[employer] ONLY, Starting on Mon12/02/13 at 2100, Until Mon12/02/13 at 2149, Recovery (Recovery-Hospital Unit) Rate/Dose Change 12/02/2013 8:48 PM EDT 30 mg HYDROmorphone (DILAUDID) 1 mg/mL [employer] 30 mL Intravenous, SALES [employer] ONLY, Starting on Mon12/02/13 at 2215, Until Mon12/03/13 at 1013, Recovery (Recovery-Hospital Unit) Rate/Dose Change 12/02/2013 9:56 PM EDT 30 mg HYDROmorphone (DILAUDID) 1 mg/mL [employer] 30 mL Intravenous, SAL[employer] ONLY, Starting on Mon12/03/13 at 2100, Until Mon12/03/13 at 2321 New Syringe/Cartridge 12/03/2013 9:30 PM EDT 30 mg HYDROmorphone (DILAUDID) 1 mg/mL [employer] 30 mL Intravenous, SALES [employer] ONLY, Starting on Mon12/03/13 at 2345, Until Mon12/04/13 at 0004 Rate/Dose Change 12/03/2013 11:45 PM EDT HYDROmorphone (DILAUDID) injection 0.5 mg 0.5 mg, Intravenous, ONCE, 1 dose, On Mon12/03/13 at 1430, STAT Given 12/03/2013 2:19 PM EDT 0.5 mg HYDROmorphone (DILAUDID) tablet 12 mg 12 mg, Oral, EVERY 3 HOURS PRN, Starting on Mon12/03/13 at 1849, Until Mon12/04/13 at 1121, Pain, for severe pain, May give an additional 4 mg one time if pain not relieved in 30-60 minutes., Routine Given 12/03/2013 10:47 PM EDT 12 mg HYDROmorphone (DILAUDID) tablet 2-6 mg 2-6 mg, Oral, EVERY 3 HOURS PRN, Starting on Mon12/03/13 at 1440, Until Mon12/03/13 at 1848, Pain, Routine Given 12/03/2013 5:51 PM EDT 6 mg Given 12/03/2013 2:50 PM EDT 4 mg HYDROmorphone (DILAUDID) tablet 4 mg 4 mg, Oral, EVERY 3 HOURS PRN, Starting on Mon12/03/13 at 1849, Until Mon12/04/13 at 1121, Pain, for mild pain, May give an additional 4 mg one time if pain not relieved in 30-60 minutes., Routine Given 12/03/2013 7:08 PM EDT 6 mg insulin aspart (novoLOG) VIAL injection 1-4 Units 1-4 Units, Subcutaneous, EVERY 4 HOURS SCHEDULED, First dose on Mon12/02/13 at 1900, Until Discontinued, CORRECTION BOLUS Sensitive to insulin lean patient or total daily dose of all insulin needed to achieve glycemic control less than 30 units BG 140 - 160 Give 1 unit BG 161 - 200 Give 2 units BG 201 - 240 Give 3 units BG greater than 240, give 4 units and recheck BG in 2 hours. If BG remains greater than 240, repeat 4 units (no more than three times) & call for new basal insulin orders. If less than 240 after two hours, give no insulin and resume prior schedule. Given 12/03/2013 4:24 AM EDT 2 Units Given 12/03/2013 12:08 AM EDT 1 Units lactated ringers infusion 100 mL/hr, Intravenous, CONTINUOUS, Starting on Mon12/02/13 at 0615, Until Mon12/02/13 at 1409, PACU Recovery New Bag 12/02/2013 6:35 AM EDT 100 mL/hr 100 mL/hr lactated ringers infusion 100 mL/hr, Intravenous, CONTINUOUS, Starting on Mon12/02/13 at 1030, Until Mon12/03/13 at 1014, Recovery (Recovery-Hospital Unit) New Bag 12/02/2013 10:04 PM EDT 100 mL/hr 100 m L/hr New Bag 12/02/2013 10:25 AM EDT 100 mL/hr 100 mL/hr lisinopril (PRINIVIL;ZESTRIL) tablet 40 mg 40 mg, Oral, DAILY, First dose on Mon12/03/13 at 0900, Until Discontinued, Routine Given 12/05/2013 8:11 AM EDT 40 mg Given 12/04/2013 8:19 AM EDT 40 mg Given 12/03/2013 8:19 AM EDT 40 mg metFORMIN (GLUCOPHAGE) tablet 1,000 mg 1,000 mg, Oral, 2 TIMES DAILY WITH MEALS, First dose on Mon12/02/13 at 1900, Until Discontinued Given 12/05/2013 5:03 PM EDT 1,000 mg Given 12/05/2013 8:07 AM EDT 1,000 mg Given 12/04/2013 8:19 AM EDT 1,000 mg multivitamin Vzxx-Cy-FC-Min (THERAPEUTIC-M) 27-0.4 mg tablet 1 tablet 1 tablet, Oral, DAILY, First dose on Mon12/02/13 at 1630, Until Discontinued Given 12/05/2013 8:07 AM EDT 1 tablet Given 12/04/2013 8:19 AM EDT 1 tablet Given 12/03/2013 8:19 AM EDT 1 tablet oxyCODONE (ROXICODONE) immediate release tablet 10 mg 10 mg, Oral, EVERY 4 HOURS PRN, Starting on Mon12/02/13 at 1014, Until Mon12/03/13 at 1013, Pain, moderate pain, For Moderate pain. Do not exceed 15 mg in 4 hours. If pain not relieved, call provider., Routine Given 12/02/2013 6:15 PM EDT 10 mg oxyCODONE (ROXICODONE) immediate release tablet 10 mg 10 mg, Oral, EVERY 3 HOURS PRN, Starting on Mon12/04/13 at 2003, Until Hneny 12/05/13 at 1937, Pain, mild pain, May give additional 5 mg in 30 minutes times 1 if pain not relieved., Routine Given 12/05/2013 12:56 PM EDT 10 mg oxyCODONE (ROXICODONE) immediate release tablet 15 mg 15 mg, Oral, EVERY 4 HOURS PRN, Starting on Mon12/02/13 at 1014, Until Mon12/03/13 at 1013, Pain, severe pain, For severe pain. Do not exceed 15 mg in 4 hours. If pain not relieved, call provider., Routine Given 12/03/2013 8:32 AM EDT 15 mg Given 12/03/2013 4:27 AM EDT 15 mg Given 12/03/2013 12:05 AM EDT 15 mg oxyCODONE (ROXICODONE) immediate release tablet 15 mg 15 mg, Oral, EVERY 3 HOURS PRN, Starting on Mon12/03/13 at 1015, Until Mon12/03/13 at 1439, Pain, severe pain, For severe pain. If pain not relieved, call provider., Routine Given 12/03/2013 11:25 AM EDT 15 mg oxyCODONE (ROXICODONE) immediate release tablet 15 mg 15 mg, Oral, EVERY 3 HOURS PRN, Starting on Mon12/04/13 at 1120, Until Mon12/04/13 at 2004, Pain, severe pain or opiate tolerant patient, Do not start patient with 15 mg dose. Do not give if patient is opiate niave., Routine Given 12/04/2013 5:34 PM EDT 15 mg Given 12/04/2013 2:34 PM EDT 15 mg Given 12/04/2013 11:35 AM EDT 15 mg oxyCODONE (ROXICODONE) immediate release tablet 20 mg 20 mg, Oral, EVERY 3 HOURS PRN, Starting on Mon12/04/13 at 2003, Until Mon12/05/13 at 1937, Pain, moderate pain, May give additional 5 mg in 30 minutes times 1 if pain not relieved., Routine Given 12/05/2013 11:55 AM EDT 20 mg Given 12/05/2013 8:55 AM EDT 20 mg Given 12/05/2013 5:55 AM EDT 20 mg oxyCODONE (ROXICODONE) immediate release tablet 30 mg 30 mg, Oral, EVERY 3 HOURS PRN, Starting on Mon12/04/13 at 2003, Until Henny 12/05/13 at 1937, Pain, severe pain or opiate tolerant patient, Do not start patient with 15 mg dose. Do not give if patient is opiate niave., Routine Given 12/05/2013 4:33 PM EDT 30 mg Given 12/05/2013 2:53 AM EDT 20 mg oxyCODONE (ROXICODONE) immediate release tablet 5 mg 5 mg, Oral, EVERY 4 HOURS PRN, Starting on Mon12/02/13 at 1014, Until Mon12/03/13 at 1013, Pain, mild pain, For Mild pain. Do not exceed 15 mg in 4 hours. If pain not relieved, call provider, Routine Given 12/02/2013 7:39 PM EDT 5 mg PHENYLephrine HCl in NS (PF) (DOYLE-SYNEPHRINE) 0.8 mg/10 mL (80 mcg/mL) injection Syrg 1 dose, Starting on Mon12/02/13 at 0949, Until Mon12/02/13 at 1040, IRAIDA NOONAN: cabinet override Given 12/02/2013 10:40 AM EDT 0.16 mg polyethylene glycol (MIRALAX) packet 17 g 17 g, Oral, 2 TIMES DAILY, First dose on Mon12/02/13 at 2100, Until Discontinued, Administer if needed per patient's routine or if no bowel movement within 48 hours, Routine Given 12/05/2013 8:07 AM EDT 17 g Given 12/04/2013 8:38 PM EDT 17 g Given 12/04/2013 8:19 AM EDT 17 g ROpivacaine (NAROPIN) 2 mg/mL for AmbIT Perineural, CONTINUOUS, Starting on Mon12/02/13 at 0900, Until Henny 12/05/13 at 1937 New Bag 12/02/2013 10:42 AM EDT 2 mLs 2 mL/hr senna-docusate (PERICOLACE) 8.6-50 mg per tablet 1-4 tablet 1-4 tablet, Oral, 2 TIMES DAILY, First dose on Mon12/02/13 at 2100, Until Discontinued, Start with 1 tablet or liquid equivalent orally twice daily and titrate up to achieve: 1. One bowel movement at least every 48 hours, AND 2. Without straining, Routine Given 12/05/2013 8:08 AM EDT 3 tablets Given 12/04/2013 8:38 PM EDT 4 tablets Given 12/04/2013 8:19 AM EDT 2 tablets sodium chloride 0.9 % flush 5 mL 5 mL, Intravenous, 2 TIMES DAILY, First dose on Mon12/02/13 at 1030, Until Discontinued, Recovery (Recovery-Hospital Unit), Routine Given 12/05/2013 8:08 AM EDT 5 mLs Given 12/04/2013 8:39 PM EDT 5 mLs Given 12/04/2013 8:20 AM EDT 5 mLs warfarin (COUMADIN) tablet 5 mg 5 mg, Oral, ONCE, 1 dose, On Mon12/02/13 at 1700, Routine Given 12/02/2013 6:53 PM EDT 5 mg warfarin (COUMADIN) tablet 5 mg 5 mg, Oral, ONCE, 1 dose, On Mon12/03/13 at 1700, Routine Given 12/03/2013 5:19 PM EDT 5 mg warfarin (COUMADIN) tablet 7.5 mg 7.5 mg, Oral, ONCE, 1 dose, On Mon12/04/13 at 1700, Routine Given 12/04/2013 4:56 PM EDT 7.5 mg warfarin (COUMADIN) tablet 7.5 mg 7.5 mg, Oral, ONCE, 1 dose, On Henny 12/05/13 at 1700, Routine Given 12/05/2013 5:04 PM EDT 7.5 mg documented in this encounter Active and Recently Administered Medications Times are shown in EDT. Scheduled Medication Order 12/03/2013 12/04/2013 12/05/2013 acetaminophen (TYLENOL) tablet 1,000 mg (CANCELED) 1,000 mg, Oral, EVERY 8 HOURS SCHEDULED, First dose on Mon12/02/13 at 1400, Until Discontinued, Maximum dose of acetaminophen is 4000 mg from all sources in 24 hours., Routine 0556 (Given - Provider: Eli Adames RN)1322 (Given - Provider: Elfego Garcia RN)2118 (Given - Provider: Naresh Rojo RN) 0605 (Given - Provider: Naresh Rojo RN) atorvastatin (LIPITOR) tablet 10 mg (CANCELED) 10 mg, Oral, EVERY EVENING, First dose on Mon12/02/13 at 1900, Until Discontinued, Interchanged for pravastatin 20mg daily per Pharmacy and Therapeutics (P&T) Committee therapeutic interchange policy., Routine 1719 (Given - Provider: Elfego Garcia RN) 1655 (Given - Provider: Elfego Garcia RN) 1703 (Given - Provider: Marcelina Sims RN) ceFAZolin (ANCEF) 1g in dextrose 5% 50mL (COMPLETED) 1,000 mg (1 g), Intravenous, EVERY 8 HOURS, 3 doses, First dose on Mon12/02/13 at 1030, Last dose on Mon12/03/13 at 0230, Administer over 30 Minutes, Adjust to 4 hours from intraoperative dose. * Beta-lactam based antibiotics (eg. Ampicillin, Cefazolin, Aztreonam) should be administered within 4 hours of the preceding intraoperative dose. * Vancomycin, Flouroquinolones, Clindamycin, Gentamicin, and Metronidazole should be administered within 8 hours of the preceding intraoperative dose., Recovery (Recovery-Hospital Unit), Indication for (Active or Suspected): Prophylaxis 227 (Given - Provider: Eli Adames RN) diaZEPam (VALIUM) tablet 5 mg (COMPLETED) 5 mg, Oral, ONCE, 1 dose, On Mon12/04/13 at 0030, Routine 0019 (Given - Provider: Naresh Rojo, ELMA) enoxaparin (LOVENOX) injection 40 mg (COMPLETED) 40 mg, Subcutaneous, ONCE, 1 dose, On Mon12/04/13 at 1000, Routine 1055 (Given - Provider: Elfego Garcia RN) enoxaparin (LOVENOX) injection 40 mg (COMPLETED) 40 mg, Subcutaneous, ONCE, 1 dose, On Henny 12/05/13 at 1000, Routine 1040 (Given - Provid er: Marcelina Sims, ELMA) esomeprazole (NexIUM) capsule 40 mg (CANCELED) 40 mg, Oral, DAILY, First dose on 12/02/13 at 1630, Until Discontinued, Routine 0819 (Given - Provider: Elfego Garcia RN) 0819 (Given - Provider: Elfego Garcia RN) 0807 (Given - Provider: Marcelina Sims, ELMA) fentaNYL (DURAGESIC) 50 mcg/hr patch 1 patch (CANCELED)(Linked Group 1) 1 patch, Transdermal, EVERY 72 HOURS, First dose on Mon12/04/13 at 1500, Until Discontinued, Place fentaNYL patch, Routine 1434 (Patch Applied - Provider: Elfego Garcia RN) fentaNYL 50mcg/mL injection (COMPLETED) 50 mcg, Intravenous, ONCE, 1 dose, On Mon12/03/13 at 1915, Routine 1857 (Given - Provider: Elfego Garcia RN) fentaNYL 50mcg/mL injection (COMPLETED) 50 mcg, Intravenous, ONCE, 1 dose, On Mon12/03/13 at 2015, Routine 2002 (Given - Provider: Naresh Rojo, RN) fentaNYL 50mcg/mL injection (COMPLETED) 50 mcg, Intravenous, ONCE, 1 dose, On Mon12/03/13 at 2130, Routine 2117 (Given - Provider: Naresh Rojo, RN) fentaNYL 50mcg/mL injection (COMPLETED) 75 mcg, Intravenous, ONCE, 1 dose, On Mon12/04/13 at 0015, Routine 0011 (Given - Provider: Naresh Rojo, RN) glipiZIDE (GLUCOTROL) CR tablet 10 mg (CANCELED) 10 mg, Oral, DAILY, First dose on Mon12/02/13 at 1900, Until Discontinued, Routine 0821 (Given - Provider: Elfego Garcia RN) 08 (Given - Provider: Elfego Garcia RN) 08 (Given - Provider: Marcelina Sims, ELMA) hydrochlorothiazide (HYDRODIURIL) tablet 25 mg (CANCELED) 25 mg, Oral, DAILY, First dose on Mon12/03/13 at 0900, Until Discontinued, Routine 08 (Given - Provider: Elfego Garcia RN) 08 (Given - Provider: Elfego Garcia RN) 08 (Given - Provider: Marcelina Sims, ELMA) HYDROmorphone (DILAUDID) injection 0.5 mg (COMPLETED) 0.5 mg, Intravenous, ONCE, 1 dose, On Mon12/03/13 at 1430, STAT 1419 (Given - Provider: Elfego Garcia RN) insulin aspart (novoLOG) VIAL injection 1-4 Units (CANCELED) 1-4 Units, Subcutaneous, EVERY 4 HOURS SCHEDULED, First dose on Mon12/02/13 at 1900, Until Discontinued, CORRECTION BOLUS Sensitive to insulin lean patient or total daily dose of all insulin needed to achieve glycemic control less than 30 units BG 140 - 160 Give 1 unit BG 161 - 200 Give 2 units BG 201 - 240 Give 3 units BG greater than 240, give 4 units and recheck BG in 2 hours. If BG remains greater than 240, repeat 4 units (no more than three times) & call for new basal insulin orders. If less than 240 after two hours, give no insulin and resume prior schedule. 0008 (Given - Provider: Eli Adames RN)0424 (Given - Provider: Eli Adames RN)0800 (Not Given - Provider: Eli Adames RN - Reason: Order parameters not met)1155 (Not Given - Provider: Elfego Garcia RN - Reason: Order parameters not met - Comment: BG [phone] (Not Given - Provider: Elfego Garcia RN - Reason: Order parameters not met)1999 (Not Given - Provider: Naresh Rojo RN - Reason: Order parameters not met) 0000 (Not Given - Provider: Naresh Rojo RN - Reason: Order parameters not met)0400 (Not Given - Provider: Naresh Rojo RN - Reason: Order parameters not met)0800 (Not Given - Provider: Naresh Rojo RN - Reason: Order parameters not met)1202 (Not Given - Provider: Elfego Garcia RN - Reason: See comment - Comment: BG 136)1622 (Not Given - Provider: Elfego Garcia RN - Reason: Order parameters not met)1938 (Not Given - Provider: Elfego Garcia RN - Reason: Order parameters not met) 0000 (Not Given - Provider: Yaquelin Martines RN - Reason: Contraindicated)0356 (Not Given - Provider: Yaquelin Martines RN - Reason: Contraindicated - Comment: BG [phone] (Not Given - Provider: Marcelina Sims RN - Reason: Order parameters not met)1137 (Not Given - Provider: Marcelina Sims RN - Reason: Order parameters not met)1600 (Not Given - Provider: Marcelina Sims RN - Reason: Order parameters not met) lisinopril (PRINIVIL;ZESTRIL) tablet 40 mg (CANCELED) 40 mg, Oral, DAILY, First dose on Mon12/03/13 at 0900, Until Discontinued, Routine 0819 (Given - Provider: Elfego Garcia RN) 0819 (Given - Provider: Elfego Garcia RN) 0811 (Given - Provider: Marcelina Sims RN) metFORMIN (GLUCOPHAGE) tablet 1,000 mg (CANCELED) 1,000 mg, Oral, 2 TIMES DAILY WITH MEALS, First dose on Mon12/02/13 at 1900, Until Discontinued 0819 (Given - Provider: Elfego Garcia RN)1712 (Not Given - Provider: Elfego Garcia RN - Reason: See comment - Comment: BG 81) 0819 (Given - Provider: Elfego Garcia RN)1655 (Not Given - Provider: Elfego Garcia RN - Reason: Order parameters not met - Comment: BG 108) 0807 (Given - Provider: Marcelina Sims RN)1703 (Given - Provider: Marcelina Sims RN) multivitamin Uzik-Bl-QK-Min (THERAPEUTIC-M) 27-0.4 mg tablet 1 tablet (CANCELED) 1 tablet, Oral, DAILY, First dose on Mon12/02/13 at 1630, Until Discontinued 08 (Given - Provider: Elfego Garcia RN) 818 (Given - Provider: Elfego Garcia RN) 0807 (Given - Provider: Marcelina Sims RN) polyethylene glycol (MIRALAX) packet 17 g 17 g, Oral, 2 TIMES DAILY, First dose on Mon12/02/13 at 2100, Until Discontinued, Administer if needed per patient's routine or if no bowel movement within 48 hours, Routine 820 (Given - Provider: Elfego Garcia RN)2117 (Given - Provider: Naresh Rojo RN) 818 (Given - Provider: Elfego Garcia RN)2037 (Given - Provider: Elfego Garcia RN) 0807 (Given - Provider: Marcelina Sims RN) senna-docusate (PERICOLACE) 8.6-50 mg per tablet 1-4 tablet 1-4 tablet, Oral, 2 TIMES DAILY, First dose on Mon12/02/13 at 2100, Until Discontinued, Start with 1 tablet or liquid equivalent orally twice daily and titrate up to achieve: 1. One bowel movement at least every 48 hours, AND 2. Without straining, Routine 818 (Given - Provider: Elfego Garcia RN)2117 (Given - Provider: Naresh Rojo RN) 818 (Given - Provider: Elfego Garcia RN)2037 (Given - Provider: Elfego Garcia RN) 0808 (Given - Provider: Marcelina Sims RN) sodium chloride 0.9 % flush 5 mL (CANCELED) 5 mL, Intravenous, 2 TIMES DAILY, First dose on Mon12/02/13 at 1030, Until Discontinued, Recovery (Recovery-Hospital Unit), Routine 0823 (Given - Provider: Elfego Garcia RN)2005 (Given - Provider: Naresh Rojo, ELMA) 819 (Given - Provider: Elfego Garcia RN)2038 (Given - Provider: Elfego Garcia RN) 0808 (Given - Provider: Marcelina Sims RN) warfarin (COUMADIN) tablet 5 mg (COMPLETED) 5 mg, Oral, ONCE, 1 dose, On Mon12/03/13 at 1700, Routine 1719 (Given - Provider: Elfego Garcia RN) warfarin (COUMADIN) tablet 7.5 mg (COMPLETED) 7.5 mg, Oral, ONCE, 1 dose, On Mon12/04/13 at 1700, Routine 1656 (Given - Provider: Elfego Garcia RN) warfarin (COUMADIN) tablet 7.5 mg 7.5 mg, Oral, ONCE, 1 dose, On Henny 12/05/13 at 1700, Routine 1704 (Given - Provid er: Marcelina Sims RN) Continuous Medication Order 12/03/2013 12/04/2013 12/05/2013 fentaNYL 50 mcg/mL [employer]ES WAREHOUSE [employer]IVER 30 mL (CANCELED) Intravenous, SALES WAREHOUSE DRIVER ONLY, Starting on Mon12/04/13 at 0045, Until Mon12/04/13 at 0200 0050 (New Syringe/Cartridge - Provider: Naresh Rojo RN) fentaNYL 50 mcg/mL SALES W[employer]HOUSE DRIVER 30 mL (CANCELED) Intravenous, SALES WAREHOUSE DRIVER ONLY, Starting on Mon12/04/13 at 0230, Until Mon12/05/13 at 0759 0230 (Rate/Dose Change - Provider: Naresh Rojo RN)1125 (Rate/Dose Change - Provider: Elfego Garcia RN)1129 (New Syringe/Cartridge - Provider: Elfego Garcia RN)2200 (New Syringe/Cartridge - Provider: Elfego Garcia RN) 0850 (Stopped - Provider: Marcelina Sims RN) HYDROmorphone (DILAUDID) 1 mg/mL SALES WAREHOUSE DRIVER 30 mL (CANCELED) Intravenous, SALES WAREHOUSE DRIVER ONLY, Starting on Mon12/03/13 at 2100, Until Mon12/03/13 at 2321 2130 (New Syringe/Cartridge - Provider: Naresh Rojo, ELMA) HYDROmorphone (DILAUDID) 1 mg/mL SALES WAREHOUSE DRIVER 30 mL (CANCELED) Intravenous, SALES WAREHOUSE DRIVER ONLY, Starting on Mon12/03/13 at 2345, Until Mon12/04/13 at 0004 2345 (Rate/Dose Change - Provider: Naresh Rojo, ELMA) PRN Medication Order 12/03/2013 12/04/2013 12/05/2013 bisacodyl (DULCOLAX) EC tablet 10 mg (CANCELED) 10 mg, Oral, 2 TIMES DAILY PRN, Starting on Mon12/02/13 at 1613, Until Henny 12/05/13 at 1937, Constipation, Administer if needed per patient's routine or if no bowel movement within 48 hours, Routine 1147 (Given - Provider: Marcelina Sims, ELMA) bisacodyl (DULCOLAX) suppository 10 mg 10 mg, Rectal, DAILY PRN, Starting on Mon12/02/13 at 1613, Until Henny 12/05/13 at 1937, Constipation, Administer if needed per patient's routine or if no bowel movement within 48 hours, Routine diaZEPam (VALIUM) tablet 5 mg 5 mg, Oral, EVERY 6 HOURS PRN, Starting on Mon12/04/13 at 0940, Until Henny 12/05/13 at 1937, Anxiety, muscle spasms, Routine 1822 (Given - Provider: Elfego Garcia RN) 0808 (Given - Provider: Marcelian Sims, ELMA) HYDROmorphone (DILAUDID) tablet 12 mg (CANCELED)(Linked Group 2) 12 mg, Oral, EVERY 3 HOURS PRN, Starting on Mon12/03/13 at 1849, Until Mon12/04/13 at 1121, Pain, for severe pain, May give an additional 4 mg one time if pain not relieved in 30-60 minutes., Routine 1908 (See Alternative - Provider: Elfego Garcia RN)2247 (Given - Provider: Naresh Rojo, RN) HYDROmorphone (DILAUDID) tablet 2-6 mg (CANCELED) 2-6 mg, Oral, EVERY 3 HOURS PRN, Starting on Mon12/03/13 at 1440, Until Mon12/03/13 at 1848, Pain, Routine 1450 (Given - Provider: Elfego Garcia RN)1751 (Given - Provider: Elfego Garcia RN) HYDROmorphone (DILAUDID) tablet 4 mg (CANCELED)(Linked Group 2) 4 mg, Oral, EVERY 3 HOURS PRN, Starting on Mon12/03/13 at 1849, Until Mon12/04/13 at 1121, Pain, for mild pain, May give an additional 4 mg one time if pain not relieved in 30-60 minutes., Routine 1908 (Given - Provider: Elfego Garcia RN - Comment: 6mg per MD)2247 (See Alternative - Provider: Naresh Rojo RN) oxyCODONE (ROXICODONE) immediate release tablet 10 mg 10 mg, Oral, EVERY 3 HOURS PRN, Starting on Mon12/04/13 at 2003, Until Henny 12/05/13 at 1937, Pain, mild pain, May give additional 5 mg in 30 minutes times 1 if pain not relieved., Routine 2037 (See Alternative - Provider: Elfego Garcia RN)2345 (See Alternative - Provider: Yaquelin Martines RN) 0253 (See Alternative - Provider: Yaquelin Martines RN)0555 (See Alternative - Provider: Yaquelin Martines RN)0855 (See Alternative - Provider: Marcelina Sims RN)1155 (See Alternative - Provider: Marcelina Sims RN)1256 (Given - Provider: Marcelina Sims RN)1633 (See Alternative - Provider: Marcelina Sims RN) oxyCODONE (ROXICODONE) immediate release tablet 15 mg (CANCELED) 15 mg, Oral, EVERY 4 HOURS PRN, Starting on Mon12/02/13 at 1014, Until Mon12/03/13 at 1013, Pain, severe pain, For severe pain. Do not exceed 15 mg in 4 hours. If pain not relieved, call provider., Routine 0005 (Given - Provider: Eli Adames RN)0427 (Given - Provider: Eli Adames RN)0832 (Given - Provider: Elfego Garcia RN) oxyCODONE (ROXICODONE) immediate release tablet 15 mg (CANCELED)(Linked Group 3) 15 mg, Oral, EVERY 3 HOURS PRN, Starting on Mon12/03/13 at 1015, Until Mon12/03/13 at 1439, Pain, severe pain, For severe pain. If pain not relieved, call provider., Routine 1125 (Given - Provider: Elfego Garcia RN) oxyCODONE (ROXICODONE) immediate release tablet 15 mg (CANCELED)(Linked Group 4) 15 mg, Oral, EVERY 3 HOURS PRN, Starting on Mon12/04/13 at 1120, Until Mon12/04/13 at 2004, Pain, severe pain or opiate tolerant patient, Do not start patient with 15 mg dose. Do not give if patient is opiate niave., Routine 1135 (Given - Provider: Elfego Garcia RN)1434 (Given - Provider: Elfego Garcia RN)1734 (Given - Provider: Elfego Garcia RN) oxyCODONE (ROXICODONE) immediate release tablet 20 mg (CANCELED) 20 mg, Oral, EVERY 3 HOURS PRN, Starting on Mon12/04/13 at 2002, Until Henny 12/05/13 at 1937, Pain, moderate pain, May give additional 5 mg in 30 minutes times 1 if pain not relieved., Routine 2037 (Given - Provider: Elfego Garcia RN)2345 (Given - Provider: Yaquelin Martines RN) 0253 (See Alternative - Provider: Yaquelin Martines RN)0555 (Given - Provider: Yaquelin Martines RN)0855 (Given - Provider: Marcelina Sims RN)1155 (Given - Provider: Marcelina Sims RN)1256 (See Alternative - Provider: Marcelina Sims RN)1633 (See Alternative - Provider: Marcelina Sims, ELMA) oxyCODONE (ROXICODONE) immediate release tablet 30 mg (CANCELED) 30 mg, Oral, EVERY 3 HOURS PRN, Starting on Mon12/04/13 at 2002, Until Henny 12/05/13 at 1937, Pain, severe pain or opiate tolerant patient, Do not start patient with 15 mg dose. Do not give if patient is opiate niave., Routine 2037 (See Alternative - Provider: Elfego Garcia RN)2345 (See Alternative - Provider: Yaquelin Martines RN) 0253 (Given - Provider: Yaquelin Martines RN)0555 (See Alternative - Provider: Yaquelin Martines RN)0855 (See Alternative - Provider: Marcelina Sims, RN)1155 (See Alternative - Provider: Marcelina Sims, RN)1256 (See Alternative - Provider: Marcelina Sims, RN)1633 (Given - Provider: Marcelina Sims RN) Linked Groups Order Group 1: fentaNYL (DURAGESIC) 50 mcg/hr patch 1 patch (CANCELED)Jump to med 1 patch, Transdermal, EVERY 72 HOURS, First dose on Mon12/04/13 at 1500, Until Discontinued, Place fentaNYL patch, Routine And fentaNYL (DURAGESIC) patch REMOVAL (CANCELED) Transdermal, EVERY 72 HOURS, First dose on 12/07/13 at 1500, Until Discontinued, Remove Fentanyl Patch And Patch Verification (CANCELED) Transdermal, EVERY 12 HOURS, First dose on Henny 12/05/13 at 0000, Until Discontinued, Verify patch Group 2: HYDROmorphone (DILAUDID) tablet 4 mg (CANCELED)Jump to med 4 mg, Oral, EVERY 3 HOURS PRN, Starting on Mon12/03/13 at 1849, Until Mon12/04/13 at 1121, Pain, for mild pain, May give an additional 4 mg one time if pain not relieved in 30-60 minutes., Routine Or HYDROmorphone (DILAUDID) tablet 8 mg (CANCELED) 8 mg, Oral, EVERY 3 HOURS PRN, Starting on Mon12/03/13 at 1849, Until Mon12/04/13 at 1121, Pain, for moderate pain, May give an additional 4 mg one time if pain not relieved in 30-60 minutes., Routine Or HYDROmorphone (DILAUDID) tablet 12 mg (CANCELED)Jump to med 12 mg, Oral, EVERY 3 HOURS PRN, Starting on Mon12/03/13 at 1849, Until Mon12/04/13 at 1121, Pain, for severe pain, May give an additional 4 mg one time if pain not relieved in 30-60 minutes., Routine Group 3: oxyCODONE (ROXICODONE) immediate release tablet 5 mg (CANCELED) 5 mg, Oral, EVERY 3 HOURS PRN, Starting on Mon12/03/13 at 1015, Until Mon12/03/13 at 1439, Pain, mild pain, For Mild pain. If pain not relieved, call provider, Routine Or oxyCODONE (ROXICODONE) immediate release tablet 10 mg (CANCELED) 10 mg, Oral, EVERY 3 HOURS PRN, Starting on Mon12/03/13 at 1015, Until Mon12/03/13 at 1439, Pain, moderate pain, For Moderate pain. If pain not relieved, call provider., Routine Or oxyCODONE (ROXICODONE) immediate release tablet 15 mg (CANCELED)Jump to med 15 mg, Oral, EVERY 3 HOURS PRN, Starting on Mon12/03/13 at 1015, Until Mon12/03/13 at 1439, Pain, severe pain, For severe pain. If pain not relieved, call provider., Routine Group 4: oxyCODONE (ROXICODONE) immediate release tablet 5 mg (CANCELED) 5 mg, Oral, EVERY 3 HOURS PRN, Starting on Mon12/04/13 at 1120, Until Mon12/04/13 at 2003, Pain, mild pain, May give additional 5 mg in 30 minutes times 1 if pain not relieved., Routine Or oxyCODONE (ROXICODONE) immediate release tablet 10 mg (CANCELED) 10 mg, Oral, EVERY 3 HOURS PRN, Starting on Mon12/04/13 at 1120, Until Mon12/04/13 at 2003, Pain, moderate pain, May give additional 5 mg in 30 minutes times 1 if pain not relieved., Routine Or oxyCODONE (ROXICODONE) immediate release tablet 15 mg (CANCELED)Jump to med 15 mg, Oral, EVERY 3 HOURS PRN, Starting on Mon12/04/13 at 1120, Until Mon12/04/13 at 2003, Pain, severe pain or opiate tolerant patient, Do not start patient with 15 mg dose. Do not give if patient is opiate niave., Routine documented in this encounter Care Teams Floor Trader Relationship Specialty Start Date End Date Reece Calixto MD [address] [place] [address] PCP - General 12/21/11 12/10/14 documented as of this encounter
--- OUTSIDE RECORDS SUMMARY | 2023-09-07 12:24 | XMS_ITS | Encounter Summary ---
[place] [address] Care Team Providers Care Youtuber Name Role Phone Ashley Calixto MD Primary Care Provider [phone] Encounter Details Date Type Department Care Team (Latest Contact Info) Description 12/12/2013 Anti-Coag [place]phone [place] [id number] Yajaira Angel RN S/P total knee arthroplasty, [...] Progress Notes * Yajaira Angel RN - 12/12/2013 11:35 AM EDT Anticoagulation Therapy Nurse Visit Zack Dowell [address] Dr. Herrera Indication: DVT Prophylaxis S/P Joint Replacement Duration of Treatment: 28 days ends: 12/30/13 Therapeutic Range: 2.0-3.0 INR: 2.6 Drawn by: [facility] Patient presents with no signs of [...] Associated Diagnosis Comments EXTERNAL LAB RESULTS Routine 12/12/2013 documented in this encounter Results * (ABNORMAL) External Lab Results (12/12/2013) POC INR 2.6(Externa l Lab) 0.9 - 1.1 12/12/2013 Historical Provider CHEMISTRY ORDERAB LES documented in this encounter Visit Diagnoses Diagnosis S/P total knee arthroplasty, left documented in this encounter Care Teams Youtuber Relationship Specialty Start Date End Date Ashley Calixto MD [facility] [address] [place] [address] PCP - General 12/21/11 12/10/14 documented as of this encounter
--- OUTSIDE RECORDS SUMMARY | 2023-09-07 12:24 | XMS_ITS | Encounter Summary ---
Author Organization [facility] [place] [address] Care Team Providers Care News Producer Name Role Phone Reece Calixto MD Primary Care Provider [phone] Encounter Details Date Type Department Care Team (Late st Contact Info) Description 12/02/2013 7:30 AM EDT - 12/02/2013 9:58 AM EDT Surgery [place] [id number] Charis Herrera MD [facility] [address] [place] [address] TOTAL KNEE ARTHROPLASTY (WRVU 19.6) Social History Tobacco Use Types Packs/Day Years [...] The INR should be reported to the [facility] Ortho clinic at [phone], and you will be informed of any [...] sennakot, to factilitate a bowel movement. An fqvh-rrs-acoybzs medication, miralax can also beused if needed [...] 1. You will have followup appointments at [facility] as indicated in Future Appointments and Orders. You will have an xray prior to those appointments so please come to Radiology, desk 3T, 1 hour BEFORE your appointment for those x- rays. (at 9:10 am on Jan 02) Future Appointments Date Time [facility] Department Center 01/02/2014 10:10 AM Charis Herrera [...] Alves on December 10 at 9:15 at [facility]. 3. Keep you appointment with you [...] of this encounter Progress Notes * Marcelina Sims RN - 12/05/2013 5:21 PM EDT Patient [...] prescriptionsgiven to patient. Patient discharged home with VNA services from [facility]. Paperwork faxed to [facility]. * Chu Castro RN - 12/05/2013 3:19 PM EDT Chart reviewed and met with pt who is ready for d/c home. Pt requests [facility] for services. I explained to pt that his WC info was mad available by EVARISTO Ha in OCM at [facility] and I would give this info to [facility] to see if they can get payment but since he wants to d/c homenow his Medicaid should cover services. He is on Coumadin and will nee PT/INR Mon, then q M&TH,SR in 10- 14 days, and Home PT 3xwk. Pt has the DME he needs. * Abran Chun MD - 12/05/2013 1:50 PM EDT Acute Pain Service - Daily Visit Note Patient Name: Zack Langley The pt was seen this AM sitting in a chair comfortably. His fentanyl GUARD ENTRANCE REGISTRAR was discontinued and he had been wearing [...] up appointment with Dr. Jo Alves at [facility] on 12/10/13 at 0915 4. We will be signing off Plan was discussed with primary team. Please call with any questions or concerns. Consult service will continue to follow patient . Recommendations as above. Please page if further consultation required. HECTOR ATKINSON MD 12/05/2013 Acute Pain Service Pager: [phone] I have seen and examined the patient, providing arceo components as outlined below. I have reviewed the resident???s above note; my evaluation of the patient is below: I was presnt through the fellows evaluation and plans and agree with them. * Ihsan Islas, ESCALATOR CONSTRUCTOR - 12/05/2013 12:35 PM EDT Physical Therapy [...] ARTHROPLASTY performed by Charis Herrera MD at [facility] MAIN OR Social History: Patient lives with his GF and 2 young boys and 2 teenagers. 1 flight of stairs to enter. 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 Herrera Patient Name: Zack Langley Age: 43 y.o. Surgery: Left Total Knee [...] 715.96 ??? S/P Left total knee arthroplasty, 10/06/14. Herrera V43.65 Interim/Subjective: Pt. With improved with [...] 199 mg/dL x-rays: none new. Assessment: Zack Langley 43 y.o. male, s/p Left TKA, post op day #2. He has a history of narcotic abuse on suboxone, and has had post-op pain control issues. He was seen by the Acute Pain Service yesterday, pain is better controlled. Anticipate d/c home today. Recommendations: Will follow APS recommendations Weight bearing status of operative extremity: Weight bearing as tolerated Wound closure: Vidalia (remove 10-14 days) Dressing changes: Mepilex Silver [...] EDT Workers??? Compensation Inpatient Demographics Name: Zack Langley : 1970 DOI: 12/30/2010 To: L Knee/Low Back Employer: [employer] Ins. Co.: [employer] Claim: [id number] Parking Lot Attendant And Cashier: Idalia Chauhan NCM: No NCM as of 12/04/2013 * Tri Briceño RN - 12/04/2013 2:44 PM EDT This is a 43 yo gentleman who underwent L TKA with Dr Herrera on 12/03/13. Pt has [place] [employer] insurance listed however pt explains this is workers comp thru [employer]. CRC confirming information. Met with pt his SO and 2 young children this afternoon. He is OOB and has IV in place at this time. Pain reports mod at this time. Patient lives with his GF and 2 young boys and 2 teenagers. 1 flight of stairs to enter. Ind amb ESCALATOR CONSTRUCTOR Pt is motivated and has made good progress with PT. We discussed need for FWW for use at home and he has no preference for vendor although IF WC- they may have specific vendors they prefer. Will await confirmation of WC before completing VNA and DME orders. ADDENDUM: Received confirmation WC. Tel Call to envelope folding machine adjuster Parking Lot Attendant And Cashier: Idalia Chauhan We discussed she has approved securing FWW and 3 in 1 commode from [facility] facility to avoid delay in d/c. She will confirm appropriate in network VNA services. Provided WC with contact info for Chu Castro RN who will be following pt tomorrow. Will secure DME VNA orders still need to be completed once agency finalized. * Ihsan Islas, ESCALATOR CONSTRUCTOR - 12/04/2013 1:18 PM EDT Physical Therapy [...] ARTHROPLASTY performed by Charis Herrera MD at [facility] MAIN OR Social History: Patient lives with his GF and 2 young boys and 2 teenagers. 1 flight of stairs to enter. Ind amb ESCALATOR CONSTRUCTOR Precautions/Special Considerations: WBAT R L/E Post-operative course: Uneventful Subjective: Patient states ???I want to keep up with my exercises and walks even though the pain ishigh at times!?? Objective: Vitals: SpO2: WNL, HR WNL Most recent Hgb value: 10.3 Pain: Moderate to severe with exercises, moderate with ambulation, GUARD ENTRANCE REGISTRAR x 2 Strength: 3/5, LAQ Functional Mobility: [...] for therapeutic functional IHSAN ISLAS PTA Pager: [phone] * Florencio Davenport PA - 12/04/2013 6:56 AM EDT Orthopaedic Surgery Inpatient Note Attending: Dr. Herrera Patient Name: Zack Langley Age: 43 y.o. Surgery: Left Total Knee [...] arthroplasty, 12/02/13. Herrera V43.65 Interim/Subjective: Pt. With difficulties with pain control overnight. He was given boluses of fentanyl and placed on a fentanyl GUARD ENTRANCE REGISTRAR with improved control. He has a history [...] 0.05 x10(3)/mcL x-rays: none new. Assessment: Zack Langley 43 y.o. male, s/p Left TKA, post op day #2. He has a history of narcotic abuse on suboxone, which he discontinued 3 days prior to surgery. Last night he had difficulties with pain control overnight. He was given boluses of fentanyl and placed on a fentanyl GUARD ENTRANCE REGISTRAR with improved control now. Recommendations: Pending APS consult Weight bearing status of operative extremity: Weight bearing as tolerated Wound closure: Vidalia (remove 10-14 days) Dressing changes: Mepilex Silver [...] 2 doses of fentanyl 50mcg administered and GUARD ENTRANCE REGISTRAR of dilaudid started. Pt stated GUARD ENTRANCE REGISTRAR of dilaudid was ineffective. MD notified and GUARD ENTRANCE REGISTRAR switched to fentanyl and one time 75 mcg of fentanyl administered around 0100. Pt states pain is 6/10 and manageable. Will continue to monitor. * Orlando Acevedo MD - 12/04/2013 1:20 AM EDT ORTHOPEDIC SURGERY SERVICE OVERNIGHT COVERAGE INTERVAL PROGRESS NOTE Patient ID: Zack Langley is a 43 y.o. male s/p L TKA. Interval Events: Difficulties with pain control overnight. In brief, this is a 43 yo M now POD#1 s/p L TKA with a history of chronic opioid use on suboxone maintenance for cocaine addiction who has had difficulty with post-operative pain control. The night of POD#0 he required multiple bolus doses of fentanyl and a dilaudid GUARD ENTRANCE REGISTRAR with essentially maximum settings for pain control. This morning his GUARD ENTRANCE REGISTRAR was d/c'd and his femoral nerve catheter [...] PO dosing of dilaudid was doubled to 06/05/11 q4h PRN with fentanyl boluses forbreakthrough, however, when it became clear that his pain was still not well controlled after 24mg oral dilaudid and multiple fentanyl boluses he was put back on the dilaudid GUARD ENTRANCE REGISTRAR. He continued to complain of extreme pain and appeared uncomfortable and his GUARD ENTRANCE REGISTRAR settings were adjusted multiple times until he was on maximum dilaudid GUARD ENTRANCE REGISTRAR settings. He received a 75mcg bolus of fentanyl, which provided some relief. His diluadid GUARD ENTRANCE REGISTRAR was d/c'd and he was placed on a fentanyl GUARD ENTRANCE REGISTRAR with a 25mcg demand dosewhich finally controlled [...] and medial knee. Natalee replaced. Assessment: Zack Langley is a 43 y.o. male with a history of chronic opioid use now POD#1 s/p L TKA who has had difficulty with post-operative pain control and now having acute pain control issues this evening after working with PT. Physical exam was reassuring and there were no signs of compartment syndrome or other operative complication. Pain control was eventually achieved with a fentanyl GUARD ENTRANCE REGISTRAR with high settings. Plan: - APS consult in the morning - continue fentanyl GUARD ENTRANCE REGISTRAR until adequate PO regimen is established - discussed with orthopedic surgery senior resident Melany Acevedo MD PGY-1 Pager #[phone] 12/04/2013 1:21 AM * Jose Juan Moon [...] list reviewed Assessment: Peripheral nerve catheter and GUARD ENTRANCE REGISTRAR for post-operative pain control, currently with good pain control. Patient being transitioned to oral pain medications. Patient requests d/c of FNC. Plan: ?? Peripheral nerve catheter was removed. Tip was intact. No bleeding, hematoma or erythema at the insertion site. ?? Patient was instructed to contact Regional Anesthesia Team ([phone]) for any unresolved sensory or motor deficits. ?? Thank you for the opportunity to have participated in the care of this patient. JOSE JUAN MOON MD Regional Team pager [phone] * Charis Herrera MD - 12/03/2013 6:54 AM EDT Orthopaedic Surgery Inpatient Note Attending: Dr. Herrera Patient Name: Zack Langley Age: 43 y.o. Surgery: Left Total Knee [...] 0.05 x10(3)/mcL x-rays: none new. Assessment: Zack Langley 43 y.o. male, s/p Left TKA, post op day #1 He has a history of narcoticabuse on suboxone, which he discontinued 3 days prior to surgery, making immediate post-op pain control difficulty, the patient with improved pain control now. Will mobilize today. Recommendations: The patient may need switch from oral oxycodone to dilaudid and will maintain GUARD ENTRANCE REGISTRAR for now until good pain control achieved with oral meds. The patient may need switch from oral oxycodone to dilaudid and will maintain GUARD ENTRANCE REGISTRAR for now until good pain control achieved with oral meds. Drain was removed, with discontinue IVF and Laurent catheter Weight bearing status of operative extremity: Weight bearing as tolerated Wound closure: Vidalia (remove 10-14 days) Dressing changes: Mepilex Silver [...] outlined. CHARIS HERRERA MD * Ric Newton - 12/02/2013 4:33 PM EDT Orthopaedic Surgery Post-Operative Progress Note Patient: Zack Langley s/p Surgery: 12/02/2013 540030 Procedure(s) (LRB): @TOTAL KNEE ARTHROPLASTY (Left) MODIFIER: ATTUNE STABILIZED ROTATING PLATFORM DEPUY (Left) Surgeon(s) and Role: * Charis Herrera MD - Primary * Florencio Davenport PA - Physician Round Cutter Operator: 2 Hr 16 Min 40 Sec * [...] intact. Pain 5/10 at this time, dilaudid GUARD ENTRANCE REGISTRAR controlling pain. Pt has dangled on edge of bed. Patient oriented to room, call gonzalez to bedside. I agree with previous nurse assessment, please see flowsheet for full assessment.Will continue to monitor ELFEGO GARCIA RN * Shanice Spann RN - 12/02/2013 3:00 PM EDT Patient arrived [facility] via bed from pacu s/p L TKA. Patient AOx 4, HRR, , lung sounds diminished, hypoactive bs, lbm 12/01/13, laurent draining clear yellow urine. +csmt to all extremities. Dressing clean dry and intact. Constavac infusing on arrival. Pain 7/10 at this time, 1x block and dilaudid GUARD ENTRANCE REGISTRAR controlling pain. Patient oriented to room, call gonzalez to bedside, please see flowsheet for full assessment. Orders were not reviewed on arrival- NAKITA Cameron notified. Will continue to monitor SHANICE SPANN RN * Shwetha Lopez RN - 12/02/2013 12:08 PM EDT 1205- Pt. vanessa sips of H2O. * Shwetha Lopez RN - 12/02/2013 11:47 AM EDT 1145- Break relief. * Iraida De León RN - 12/02/2013 10:06 AM EDT 0950) Into PACU from OR. Attached to monitors, alarms on and appropriate for patient. Blood pressure low. Doyle push given by anesthesia. No second site IV present. Anesthesia PACU resident assisting in settling patient. Pulses, dressing checks, spinal and block assessments done per PACU Protocol throughout entire PACU stay. Guille RN 1200) Meets PACU dc criteria, but no room available. Guille RN 1330) Handoff accepted. Constavac blood started per receiving RN request. Guille WILLS 1400) Transportation requested. Guille RN documented in this encounter H&P Notes * [...] 12/02/2013 6:40 AM EDT Patient Name: Zack Langley Patient Age: 43 y.o. Birthdate: 1970 Admit [...] encounter Miscellaneous Notes * Miscellaneous - Provider, Hussein - 12/06/2013 8:48 AM EDT * Discharge Summary - Malika Marlow PA - 12/05/2013 4:03 PM EDT Discharge Summary Patient Name: Zack Langley Patient Age: 43 y.o. Language: Saudi Arabian Race: White Ethnicity: Not nor Admit date: 12/02/2013 Discharge date and time: 12/05/2013 Attending Physician: Charis Herrera MD Discharge Physician: Charis Herrera MD Follow-up Recommendations for Providers: Please see patient discharge instructions for additional details. Future Appointments Date Time Provider Department Center 01/02/2014 10:10 AM Charis Herrera MD [facility] None Inpatient Provider Contact Information: Charis Herrera MD Joints: [phone] After hours and weekends, call [facility] Last [place], , and have Orthopedic resident paged. Discharge [...] Primary * Florencio Davenport PA - Physician Round Cutter Operator History of Presentation: The patient presented to [...] surgical site was marked with a green [place] in the pre-op area Hospital Course: The [...] up appointment with Dr. Jo Alves at [facility] on 12/10/13 at 0915 4. We [...] Rate: [95-106] Blood Pressure BP: 129/65 mmHg @akxypkv34@ Respiratory Rate Resp: 16 Resp: [16-19] SpO2 SpO2: 95 % @mjpzrgiu07@ Art BP BP (Arterial Line): -- Functional and Cognitive Status: Patient ambulating with assistive device. Cognitively intact. Important Studies and Lab Data: Labs: Last 3 wbc, hgb, hct plt Recent Labs Basename 12/05/13 0435 12/04/13 0354 12/03/13 0421 WBC 13.3* 15.0* 13.0* HGB 11.1* 10.3* 10.5* HCT 32.2* 30.2* 30.7* PLATELET 221 212 232 Last 3 Lytes Recent Labs Basename 12/05/1343412/04/134 12/03/13420 NA 135 133* 135 K 3.9 3.6 [...] ??? Never Used Comment: stopped on the , using a patch Instructions Given to Patient [...] 0.9 5 12/03 POD 1 1.0 5 108 POD 2 0.9 7.5 10 D/C POD 3 1.1 7.5 Anti-coagulation follow [...] The INR should be reported to the [facility] Ortho clinic at [phone], and you will be informed of any [...] sennakot, to factilitate a bowel movement. An ugkj-fhz-ipgqjoi medication, miralax can also beused if needed [...] 1. You will have followup appointments at [facility] as indicated in Future Appointments and Orders. [...] Alves on December 10 at 9:15 at [facility]. 3. Keep you appointment with you physician who prescribes your suboxone on December 16. He will direct your restart. Future Appointments and Orders Future Appointments: Provider: Department: Dept Phone: Center: 01/02/2014 10:10 AM Charis Herrera MD Orthopaedics [phone] None Joint Appt Questionnaire [facility] Orthopaedics [phone] None Future Orders Please Complete By Expires Referral for Anticoagulation Monitoring [SOM429 Custom] Process Instructions: If no progress note charted, please enter Clinical details in comments. Scheduling Instructions: Comments: Questions: Responses: My question or request is: patient going with lovenox bridge. Risk Factors: Responsible Group [facility] Next due INR 12/06/2013 INR Goal Target End Date 12/30/2013 Referral to Home Health - at DISCHARGE [NIO4798 CPT(R)] Process Instructions: Scheduling Instructions: Comments: [facility]. PHONE: [phone] FAX: [phone] DISCHARGE DOCUMENTATION FOR VNA SERVICES (INCLUDING THOSE PATIENTS WITH MEDICARE COVERAGE BEING DISCHARGED HOME WITH VNA SERVICES AND THOSE PATIENTS WITH MEDICARE COVERAGE WHO ARE BEING DISCHARGED HOME WITH HOSPICE SERVICES) Zack Langley [address] [facility] [phone] (home) Telephone Information: Cut Off Saw Set Up Operator: In discussion with the attending physician, it is certified that this patient is under their care and that they, or a nurse practitioner, clinical nurse specialist or physician's medical receptionist medical assistant who is working directly with them, had [...] for home health services. HOME HEALTH AGENCY: [facility] Home care orders for Total KneeArthroplasty: 1.RN: Draw PT/INR as follows: PER MD ORDERS. Please draw INR daily until INR is 1.4 or greater. Patient will need lovenox injection if INR is less than 1.4 Thereafter, PT/INR: every Monday and PT/INR results to be called and faxed as follows Mon-Mon Ortho anticoagulation (Coumadin) clinic @ [facility]: ; Sat/Sun: if the PT/INR is drawn on the weekend, call the results to the Orthopedic Resident on callat [phone] for Coumadin dose Point of care testing [...] from this patient's PCP: REECE CALIXTO MD [facility] [address] [place] [address] All A agencies which cover the area of patient's residence have been reviewed, either verbally tamir writing, and patient/family have chosen the indicated home health care agency for home services. Questions: Responses: Agency name and contact information [facility] Patient location post discharge home What services are requested Registered Nurse Physical Therapy Start date Responsible MD post discharge contact info Primary Care Provider: REECE CALIXTO MD [phone] * Initial Assessments - Omega Orellana, OT - 12/05/2013 12:20 PM EDT Occupational Therapy Evaluation Patient profile: Zack Langley is a 43 y.o. male patient of [...] ARTHROPLASTY performed by Charis Herrera MD at [facility] MA[facility] OR Social History: Social History: [...] girlfriend assist him with task- including HALEY beth mgmt. ?? Pt was able to don [...] minutes Total timed interventions: 0 minutes Pager: [phone] OMEGA ORELLANA OT 12/05/2013 Occupational Therapy Rehabilitation Department * Consult Note - Abran Chun MD - 12/04/2013 11:05 AM EDT Acute Pain Service Consultation Pt Age: 43 y.o. Date of Consultation: 12/04/2013 Consult Service: Orthopedics Place of Service: [facility] Responsible Attending: Javier Hayden/Associate Provider: Lamar Consultation Reason: I am seeing Zack Langley in consultation at the requests of Dr. [...] oral pain meds along with a dilaudid GUARD ENTRANCE REGISTRAR. He was placed on a fentanyl GUARD ENTRANCE REGISTRAR the morning of 12/04 and has since [...] ARTHROPLASTY performed by Charis Herrera MD at [facility] MA[facility] OR ADR/Allergies: Allergies Allergen Reactions [...] Intravenous, Q1 Min PRN, Orlando Acevedo MD; GUARD ENTRANCE REGISTRAR arceo, , Intravenous, Continuous PRN, Orlando Acevedo MD; fentaNYL 50 mcg/mL GUARD ENTRANCE REGISTRAR 30 mL, , Intravenous, PCAOnly, Orlando Acevedo MD; warfarin (COUMADIN) tablet 7.5 mg, 7.5 mg, Oral, Once, Lis Cameron,DIVERSIFIED CROPS FARMER; [COMPLETED] enoxaparin (LOVENOX) injection 40 mg, 40 mg, Subcutaneous, Once, Lis Cameron, DIVERSIFIED CROPS FARMER, 40 mg at 12/04/13 1055 diaZEPam (VALIUM) tablet 5 mg, 5 mg, Oral, Q6H PRN, Lis Cameron, DIVERSIFIED CROPS FARMER; [DISCONTINUED] HYDROmorphone (DILAUDID) 1 mg/mL GUARD ENTRANCE REGISTRAR 30 mL, , Intravenous, GUARD ENTRANCE REGISTRAR Only, Orlando Acevedo MD; [DISCONTINUED] fentaNYL 50 mcg/mL GUARD ENTRANCE REGISTRAR 30 mL, , Intravenous, GUARD ENTRANCE REGISTRAR Only, Orlando Acevedo MD, 1,500 mcg at 12/04/13 0050; [COMPLETED] warfarin (COUMADIN) tablet 5 mg, 5 mg, Oral, Once, Ethel, Florencio D, PA, 5 mg at 12/03/13 1719 [COMPLETED] HYDROmorphone (DILAUDID) injection 0.5 mg, 0.5 mg, Intravenous, Once, Lis Cameron,DIVERSIFIED CROPS FARMER, 0.5 mg at 12/03/13 1419; [COMPLETED] fentaNYL [...] Once, Orlando Acevedo MD, 50 mcg at 12/03/137; [COMPLETED] fentaNYL 50mcg/mL injection, 75 mcg, Intravenous, Once, Orlando Acevedo MD, 75 mcg at 12/04/13 0011 [DISCONTINUED] oxyCODONE (ROXICODONE) immediate release tablet 5 mg, 5 mg, Oral, Q3H PRN, Lis Cameron, DIVERSIFIED CROPS FARMER; [DISCONTINUED] oxyCODONE (ROXICODONE) immediate release tablet 10 mg, 10 mg, Oral, Q3H PRN, Lis Cameron P, DIVERSIFIED CROPS FARMER; [DISCONTINUED] oxyCODONE (ROXICODONE) immediate release tablet 15 mg,15 mg, Oral, Q3H PRN, Lis Cameron P, DIVERSIFIED CROPS FARMER, 15 mg at 12/03/13 1125 [DISCONTINUED] HYDROmorphone (DILAUDID) injection 0.5 mg, 0.5 mg, Intravenous, Once, Alva Cameron, DIVERSIFIED CROPS FARMER; [DISCONTINUED] HYDROmorphone (DILAUDID) tablet 2-6 mg, 2-6 mg, Oral, Q3H PRN, Lis Cameron, DIVERSIFIED CROPS FARMER, 6 mg at 12/03/13 1751; [DISCONTINUED] HYDROmorphone (DILAUDID) 1 mg/mL GUARD ENTRANCE REGISTRAR 30 mL, , Intravenous, GUARD ENTRANCE REGISTRAR Only, Orlando Acevedo MD, 30 mg at 12/03/13 2130 [DISCONTINUED] diphenhydrAMINE (BENADRYL) injection 25 mg, 25 mg, Intravenous, Q30 Min PRN, Orlando Acevedo MD; [DISCONTINUED] prochlorperazine (COMPAZINE) injection 5 mg, 5 mg, Intravenous, Q30 MinPRN, Orlando Acevedo MD; [DISCONTINUED] nalOXone (NARCAN) injection 0.2 mg, 0.2 mg, Intravenous, Q1 Min PRN, Orlando Acevedo MD; [DISCONTINUED] GUARD ENTRANCE REGISTRAR arceo, , Intravenous, Continuous PRN, Tiny Acevedo MD [DISCONTINUED] HYDROmorphone (DILAUDID) 1 mg/mL GUARD ENTRANCE REGISTRAR 30 mL, , Intravenous, GUARD ENTRANCE REGISTRAR Only, Orlando Acevedo MD; ROpivacaine (NAROPIN) 2 mg/mL for AmbIT, , Perineural, Continuous, Jose Juan Moon MD, Last Rate: 2 mL/hr at 12/02/13 1042, 2 mL at 12/02/13 1042; glipiZIDE (GLUCOTROL) CR tablet 10 mg, 10 mg, Oral, Daily, EthelFlorencio snowden, PA, 10 mg at 12/04/13818 metFORMIN (GLUCOPHAGE) tablet 1,000 mg, 1,000 mg, Oral, BID WC, EthelAlessioFlorencio D, PA, 1,000 mg at 12/04/13818; lisinopril (PRINIVIL;ZESTRIL) tablet 40 mg, 40 mg, Oral, Daily, EthelAlessioFlorencio D, PA, 40 mg at 12/04/13818; hydrochlorothiazide (HYDRODIURIL) tablet 25 mg, 25 mg, Oral, Daily, EthelFlorencio D, PA, 25 mg at 12/04/13818; dextrose 50% injection 25-50 mL, 12.5-25 g, Intravenous, Q1H PRN, Florencio Davenport PA glucagon (human recombinant) injection 1 mg, 1 mg, Intramuscular, Q1H PRN, Florencio Davenport, PA; sodium chloride 0.9 % flush 5 mL, 5 mL, Intravenous, BID, EthelFlorencio snowden, PA, 5 mL at 12/04/13819; sodium chloride 0.9 % flush 5-20 mL, 5-20 mL, Intravenous, Q1 Min PRN, Florencio Davenport, PA; lidocaine (XYLOCAINE) 10 mg/mL (1 %) injection 3 mg, 0.3 mL, Subcutaneous, Once PRN, Florencio Davenport,PA polyethylene glycol (MIRALAX) packet 17 g, 17 g, Oral, BID, Florencio Davenport, PA, 17 g at ; senna-docusate (PERICOLACE) 8.6-50 mg per tablet 1-4 tablet, 1-4 tablet, Oral, BID, Florencio Davenport, PA, 2 tablet at 12/04/13818; lactulose (CHRONULAC) 20 gram/30 mL oral solution 20-40 g, 30-60 mL, Oral, Daily PRN, Florencio Davenport, PA; bisacodyl (DULCOLAX) EC tablet 10 mg, 10 mg, Oral,BID PRN, Florencio Davenport, PA bisacodyl (DULCOLAX) suppository 10 mg, 10 mg, Rectal, Daily PRN, Florencio Davenport, PA; multivitamin Jqjv-Yv-AT-Min (THERAPEUTIC-M) 27-0.4 mg tablet 1 tablet, 1 tablet, Oral, Daily, Florencio Davenport, PA, 1 tablet at 12/04/13818; ondansetron (ZOFRAN) tablet 4 mg, 4 mg, Oral, Q8H PRN, Florencio Davenport, PA; ondansetron (ZOFRAN) injection 4 mg, 4 mg, Intravenous, Q8H PRN, Florencio Davenport PA insulin aspart (novoLOG) VIAL injection 1-4 Units, 1-4 Units, Subcutaneous, Q4H RUBIA, Florencio Davenport PA, 2 Units at 12/03/13 0424; esomeprazole (NexIUM) capsule 40 mg, 40 mg, Oral, Daily, Florencio Davenport, PA, 40 mg at 12/04/13 0819; warfarin (COUMADIN) daily order reminder, , Oral, Q24H, Florencio Davenport PA; atorvastatin (LIPITOR) tablet 10 mg, 10 mg, Oral, QPM, Charis Herrera MD, 10 mg at 12/03/13 1719 [DISCONTINUED] acetaminophen (TYLENOL) tablet 1,000 mg, 1,000 mg, Oral, Q8H RUBIA, Florencio Davenport PA, 1,000 mg at 12/04/13 0605 Family History: [...] and sober since 03/10. Hx IV drugs 8025-6557. Hx intranasal drugs 7518-3162. ??? 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 He injured left knee and underwent arthroscopy in February. Knee is not getting better. He continues to be out on worker's compensation.He has hx of IVDU [id number] 2012Hx of intranasal drug use 1986-1999Has 2 tattoos he received in correction in 1989 and 1999.Pierced ear in 1992 at home, shared needles.He sees psychiatrist, Dr. Baron, in [facility].He sees drug counselor Yanira Chahal x 7 [...] take full effect) 3. Stop the fentayl GUARD ENTRANCE REGISTRAR 6 hours after applying the patch 4. Start oxycodone 5-15mg every 3-4 hours I have discussed with the pt the risks and side effects of opioid medications that include, but arenot limited to: correction abuse potential, constipation and sexual dysfunction. Consult service will continue to follow patient. Recommendations are above, please page if further consultation required. HECTOR ATKINSON MD 12/04/2013 # [id number] beeper # [phone]- APS I have seen and examined the [...] states pain is a 6/10. Administered fentanyl GUARD ENTRANCE REGISTRAR. Will continue to monitor. * Plan of [...] Clinical Practice Guideline (CPG) Patient tolerating fentanyl GUARD ENTRANCE REGISTRAR well with settlings 25 mcg/7 min/1500 mcg. [...] ARTHROPLASTY performed by Charis Herrera MD at [facility] MAIN OR Social History: Patient lives with his GF and 2 young boys and 2 teenagers. 1 flight of stairs to enter. 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 Administered dilaudid GUARD ENTRANCE REGISTRAR and oral oxycodone. Will continue to monitor. [...] reports no relief from scheduled tylenol, dilaudid GUARD ENTRANCE REGISTRAR and oxycodone 15mg. paged, in to see pt and new orders given. Dilaudid GUARD ENTRANCE REGISTRAR dose increased and one time order for fentanyl 50mcg given with good effect. Pt is able to rest comfortably for a few hours. He continues on scheduled tylenol and requires oxycodone 15mg q4h in addition to thePCA but reports his pain to be between 3/10-5/10 for the remainder of the night. Will continue to monitor. * Miscellaneous - Provider, Hussein - 12/02/2013 2:54 PM EDT * OR Attestation - Charis Herrera MD - 12/02/2013 9:42 AM EDT Attestation: Case Date: 12/02/2013 I performed this procedure without the involvement of a resident, no qualified resident was available. CHARIS HERRERA MD 12/02/2013 * Op Note - Charis Herrera MD - 12/02/2013 9:39 AM EDT [facility] [place] Patient Name: Zack Langley : [id number] MR#: [id number] Case Date: 12/02/2013 Surgeon: Surgeon(s) and Role: * Charis Herrera MD - Primary * Florencio Davenport PA - Physician Round Cutter Operator Preoperative diagnosis: Left DJD Postoperative diagnosis: Left [...] Implant Name Type Inv. Item Serial No. Spreader Operator Automatic Lot No. LRB No. Used Action CEMENT,BNE,CMW 1,GNTA,40GM [id number]) - [id number] IMPLANTS CEMENT,BNE,CMW 1,GNTA,40GM ([id number]) Depuy Dye Stand Loader - [id number] Left 1 Implanted TRAY,ATTUNE,RP,TIB,BASE,SZ7 ([id number]) (AUTOREQ) - [id number] IMPLANTS TRAY,ATTUNE,RP,TIB,BASE,SZ7 ([id number]) (AUTOREQ) Depuy Dye Stand Loader - [id number] Left 1 Implanted INSER,ATTUNE,PS,FEM,SZ7,LT ([id number]) (AUTOREQ) - [id number] IMPLANTS INSER,ATTUNE,PS,FEM,SZ7,LT ([id number]) (AUTOREQ) Depuy Dye Stand Loader - [id number] Left 1 Implanted DIXON,KIRILL ARCHER,KOKO,41MM ([id number]) (AUTOREQ) - [id number] IMPLANTS DIXON,KIRILL ARCHER,KOKO,41MM ([id number]) (AUTOREQ) Depuy Dye Stand Loader - [id number] Left 1 Implanted INSER,ATTUNE,PS,RP,SZ7,7MM ([id number]) (AUTOREQ) - [id number] IMPLANTS INSER,ATTUNE,PS,RP,SZ7,7MM ([id number]) (AUTOREQ) Melanie [employer] Tech - [id number] Left 1 Implanted COMPLICATIONS: None. SPECIMENS: Bone [...] surgical site was marked with a green [place] in the pre-op area. DESCRIPTION OF PROCEDURE: [...] mallet. Excess cement was removed with a [place]. We then placed the cement onto the anterior and distal aspects of the femur. The cement was placed on the posterior aspect of the prosthetic condyles. The femoral component was then placed and impacted into position. Excess cement was removed with a Cleveland. The polyethylene trial was then placed and the knee brought out to full extension where it was held for the entire polymerization time. Cement was then pressurized into the patellar bone and the patellar component placed. The patella was clamped. Excess cement was removed with a Cleveland. After all cement had hardened, the knee [...] the anesthesiology staff and transferred to the [facility]. Sequential compression devices were placed. [...] POC Glucose 89 60 - 199 mg/dL [facility] Comment: Supplemental ranges: <140 mg/dL before meals <180 mg/dL all other times of the day Blood specimen (specimen) 12/05/2013 4:18 PM EDT 12/05/2013 4:18 PM EDT Charis Herrera MD POINT OF CARE TEST O HARINDER Performing Organization Address City/[facility]/ZIP Co de Phone Number [facility] * POCT Glucose (12/05/2013 11:35 AM EDT) POC Glucose 100 60 - 199 mg/dL [facility] Comment: Supplemental ranges: <140 mg/dL before meals <180 mg/dL all other times of the day Blood specimen (specimen) 12/05/2013 11:35 AM EDT 12/05/2013 11:35 AM EDT Narrative Authorizing Provider Result Daniela Herrera MD POINT OF CARE TEST O JAYLONERATESSA Performing Organization Address [facility] Co de Phone Number [facility] * POCT Glucose (12/05/2013 7:07 AM EDT) POC Glucose 105 60 - 199 mg/dL [facility] Comment: Supplemental ranges: <140 mg/dL before meals <180 mg/dL all other times of the day Blood specimen (specimen) 12/05/2013 7:07 AM EDT 12/05/2013 7:07 AM EDT Charis Herrera MD POINT OF CARE TEST O RDERATESSA [facility] * (ABNORMAL) Differential, Automated (12/05/2013 4:35 AM [...] ORDERABLE S CERNER MILLENNIUM * (ABNORMAL) Hemogram (12/05/2013 4:35 AM EDT) WBC 13.3(H) 4.0 - 10.0 x10(3)/mcL CERNER MILLENNIUM RBC 3.72(L) 4.63 - 6.08 x10(6)/mcL CERNER MILLENNIUM Hemoglobin 11.1(L) 13.7 - 17.5 gm/dL CERNER MILLENNIUM Hematocrit 32.2(L) 40.0 - 51.0 % CERNER MILLENNIUM MCV 86.6 79.0 - 92.0 fL CERNER MILLENNIUM MCH 29.8 25.6 - 32.2 pg CERNER MILLENNIUM MCHC 34.5 32.0 - 36.5 gm/dL [facility] MILLENNIUM Platelets 221 145 - 370 x10(3)/mcL CERNER MILLENNIUM RDWSD 39.5 35.0 - 46.0 fL CERNER MILLENNIUM RDWCV 12.5 10.9 - 14.4 % CERNER MILLENNIUM MPV 11.2 9.0 - 12.[address] [facility] [facility] MILLENNIUM Blood specimen (specimen) 12/05/2013 4:35 AM EDT 12/05/2013 4:43 AM EDT Narrative Resulting Agency Comment Spec In Lab Charis Herrera MD HEMATOLOGY ORDERABLE S Performing Organization Address [facility] de Phone Number [facility] * Prothrombin Time (12/05/2013 4:35 AM EDT) PT 14.7 12.5 - 15.5 sec [facility] MILLENNIUM Comment: [facility] Transfusion Committee Guidelines: INR less than 2.0, PTT less than OR equal to 43.5 seconds, or Fibrinogen greater than or equal to 100 mg/dl indicate adequate procoagulant activity for hemostasis in patients without underlying bleeding disorders. INR 1.1 0.9 - 1.1 [facility] MILLENNIUM Blood specimen (specimen) 12/05/2013 4:35 AM EDT 12/05/2013 4:43 AM EDT Narrative Resulting Agency Comment Spec In Lab Charis Herrera MD HEMATOLOGY ORDERABLE S Performing Organization Address [facility] Co de Phone Number [facility] * (ABNORMAL) Basic Metabolic Panel (non-fasting) (12/05/2013 4:35 AM EDT) Glucose Lvl 96 60 - 199 mg/dL [facility] MILLENNIUM Comment:Diabetes: >=200 mg/d L plus symptoms BUN 11 10 - 20 mg/dL [facility] MILLENNIUM Creatinine 0.72(L) 0.80 - 1.50 mg/dL CERNER MILLENNIUM Comment: Please note that the pediatric reference intervals supplied above were not validated at [facility]. Results from pediatric patients should be interpreted [...] the following links into your internet browser. [email or web address] Blood specimen (specimen) 12/05/2013 4:35 AM EDT 12/05/2013 4:43 AM EDT Narrative Resulting Agency Comment Spec In Lab Charis Herrera MD CHEMISTRY ORDERABLES TOROJERE KNAPPRIP * POCT Glucose (12/05/2013 3:55 AM EDT) POC Glucose 104 60 - 199 mg/dL CERNER MILLENNIUM Comment: Supplemental ranges: <140 mg/dL before meals <180 mg/dL all other times of the day Blood specimen (specimen) 12/05/2013 3:55 AM EDT 12/05/2013 3:55 AM EDT Charis Herrera MD POINT OF CARE TEST O RDERABLES Performing Organization Address [facility] Co de Phone Number [facility] * POCT Glucose (12/04/2013 11:43 PM EDT) POC Glucose 94 60 - 199 mg/dL [facility] Comment: Supplemental ranges: <140 mg/dL before meals <180 mg/dL all other times of the day Blood specimen (specimen) 12/04/2013 11:43 PM EDT 12/04/2013 11:43 PM EDT Charis Herrera MD POINT OF CARE TEST O RDERATESSA Performing Organization Address [facility] de Phone Number [facility] * POCT Glucose (12/04/2013 7:29 PM EDT) POC Glucose 120 60 - 199 mg/dL [facility] Comment: Supplemental ranges: <140 mg/dL before meals <180 mg/dL all other times of the day Blood specimen (specimen) 12/04/2013 7:29 PM EDT 12/04/2013 7:29 PM EDT Charis Herrera MD POINT OF CARE TEST O RDERATESSA Performing Organization Address [facility] de Phone Number [facility] * POCT Glucose (12/04/2013 4:12 PM EDT) POC Glucose 108 60 - 199 mg/dL [facility] Comment: Supplemental ranges: <140 mg/dL before meals <180 mg/dL all other times of the day Blood specimen (specimen) 12/04/2013 4:12 PM EDT 12/04/2013 4:12 PM EDT Charis Herrera MD POINT OF CARE TEST O RDERABLES Performing Organization Address [facility] Co de Phone Number [facility] * POCT Glucose (12/04/2013 11:41 AM EDT) POC Glucose 136 60 - 199 mg/dL [facility] Comment: Supplemental ranges: <140 mg/dL before meals <180 mg/dL all other times of the day Blood specimen (specimen) 12/04/2013 11:41 AM EDT 12/04/2013 11:41 AM EDT Charis Herrera MD POINT OF CARE TEST O HARINDER Performing Organization Address [facility] de Phone Number [facility] * POCT Glucose (12/04/2013 7:07 AM EDT) POC Glucose 126 60 - 199 mg/dL [facility] Comment: Supplemental ranges: <140 mg/dL before meals <180 mg/dL all other times of the day Blood specimen (specimen) 12/04/2013 7:07 AM EDT 12/04/2013 7:07 AM EDT Charis Herrera MD POINT OF CARE TEST O HARINDER Performing Organization Address [facility] de Phone Number [facility] * (ABNORMAL) Hemoglobin A1c (12/04/2013 3:54 AM EDT) Hemoglobin A1C 6.7(H) <=5.6 % [facility] Comment: Reference Range: 4.3 - 5.6% 5.7 [...] Mellitus, Diabetes Care 2013; 36: Suppl. 1, H17-71 Est Avg Gluc 146 mg/dL [facility] Comment: eAG equivalents for HbA1c percentages: HbA1c(%) ?eAG(mg/dL) 6.0 ?126 6.5 ?140 7.0 ?154 7.5 ?169 8.0 ?183 8.5 ?197 9.0 ?212 9.5 ?226 10.0 ? 240 Limitations: The eAG calculation has not been validated on women, individuals below 18 years old and above 70 years old, and individuals with hemoglobinopathies. Additional resources are available on the ADA website: [email or web address] Blake KENNEY, Charley J, Gian R, et al. ??Translating the A1C assay into estimated average glucose values. ??Diabetes Care 2008:31(8):4872-9121. Blood specimen (specimen) 12/04/2013 3:54 AM EDT 12/04/2013 10:05 AM EDT Narrative Resulting Agency Comment Spec In Lab Charis Herrera MD CHEMISTRY ORDERABLES CERNER RAENNIUM * (ABNORMAL) Differential, Automated (12/04/2013 3:54 AM [...] 12.0 fL [facility] MILLENNIUM Blood specimen (specimen) 12/04/2013 3:54 AM EDT 12/04/2013 4:27 AM EDT Narrative Resulting Agency Comment Spec In Lab Charis Herrera MD HEMATOLOGY ORDERABLE S Performing Organization Address [facility] de Phone Number RANDY MORALES * Prothrombin Time (12/04/2013 3:54 AM EDT) PT 13.2 12.5 - 15.5 sec CERNER MILLENNIUM Comment: [facility] Transfusion Committee Guidelines: INR less than 2.0, PTT less than OR equal to 43.5 seconds, or Fibrinogen greater than or equal to 100 mg/dl indicate adequate procoagulant activity for hemostasis in patients without underlying bleeding disorders. INR 0.9 0.9 - 1.1 CERN[facility] MILLENNIUM Blood specimen (specimen) 12/04/2013 3:54 AM EDT 12/04/2013 4:27 AM EDT Narrative Resulting Agency Comment Spec In Lab Charis Herrera MD HEMATOLOGY ORDERABLE S Performing Organization Address [facility] de Phone Number RANDY MORALES * (ABNORMAL) Basic Metabolic Panel (non-fasting) (12/04/2013 3:54 AM EDT) Glucose Lvl 105 60 - 199 mg/dL [facility] MILLENNIUM Comment:Diabetes: >=200 mg/d L plus symptoms BUN 10 10 - 20 mg/dL [facility] MILLENNIUM Creatinine 0.80 0.80 - 1.50 mg/dL CERN[facility] MILLENNIUM Comment: Please note that the pediatric reference intervals supplied above were not validated at [facility]. Results from pediatric patients should be interpreted [...] the following links into your internet browser. [email or web address] Blood specimen (specimen) 12/04/2013 3:54 AM EDT 12/04/2013 4:27 AM EDT Narrative Resulting Agency Comment Spec In Lab Charis Herrera MD CHEMISTRY ORDERABLES Performing Organization Address [facility] Co de Phone Number [facility] * POCT Glucose (12/04/2013 3:45 AM EDT) POC Glucose 115 60 - 199 mg/dL [facility] Comment: Supplemental ranges: <140 mg/dL before meals <180 mg/dL all other times of the day Blood specimen (specimen) 12/04/2013 3:45 AM EDT 12/04/2013 3:45 AM EDT Charis Herrera MD POINT OF CARE TEST O RDERABLES Performing Organization Address [facility] Co de Phone Number [facility] * POCT Glucose (12/03/2013 11:42 PM EDT) POC Glucose 115 60 - 199 mg/dL [facility] Comment: Supplemental ranges: <140 mg/dL before meals <180 mg/dL all other times of the day Blood specimen (specimen) 12/03/2013 11:42 PM EDT 12/03/2013 11:42 PM EDT Charis Herrera MD POINT OF CARE TEST O RDERATESSA Performing Organization Address [facility] de Phone Number [facility] * POCT Glucose (12/03/2013 7:22 PM EDT) POC Glucose 102 60 - 199 mg/dL [facility] Comment: Supplemental ranges: <140 mg/dL before meals <180 mg/dL all other times of the day Blood specimen (specimen) 12/03/2013 7:22 PM EDT 12/03/2013 7:22 PM EDT Charis Herrera MD POINT OF CARE TEST O RDERATESSA Performing Organization Address [facility] de Phone Number [facility] * POCT Glucose (12/03/2013 5:20 PM EDT) POC Glucose 115 60 - 199 mg/dL [facility] Comment: Supplemental ranges: <140 mg/dL before meals <180 mg/dL all other times of the day Blood specimen (specimen) 12/03/2013 5:20 PM EDT 12/03/2013 5:20 PM EDT Charis Herrera MD POINT OF CARE TEST O RDERATESSA Performing Organization Address [facility] de Phone Number [facility] KNAPPBANNER [facility] * POCT Glucose (12/03/2013 4:37 PM EDT) POC Glucose 81 60 - 199 mg/dL [facility] Comment: Supplemental ranges: <140 mg/dL before meals <180 mg/dL all other times of the day Blood specimen (specimen) 12/03/2013 4:37 PM EDT 12/03/2013 4:37 PM EDT Charis Herrera MD POINT OF CARE TEST O RDERATESSA Performing Organization Address [facility] Co de Phone Number [facility] * POCT Glucose (12/03/2013 4:21 PM EDT) POC Glucose 70 60 - 199 mg/dL [facility] Comment: Supplemental ranges: <140 mg/dL before meals <180 mg/dL all other times of the day Blood specimen (specimen) 12/03/2013 4:21 PM EDT 12/03/2013 4:21 PM EDT Charis Herrera MD POINT OF CARE TEST O HARINDER Performing Organization Address [facility] de Phone Number [facility] * POCT Glucose (12/03/2013 11:58 AM EDT) POC Glucose 119 60 - 199 mg/dL [facility] Comment: Supplemental ranges: <140 mg/dL before meals <180 mg/dL all other times of the day Blood specimen (specimen) 12/03/2013 11:58 AM EDT 12/03/2013 11:58 AM EDT Charis Herrera MD POINT OF CARE TEST O HARINDER Performing Organization Address [facility] de Phone Number [facility] * POCT Glucose (12/03/2013 7:19 AM EDT) POC Glucose 139 60 - 199 mg/dL [facility] Comment: Supplemental ranges: <140 mg/dL before meals <180 mg/dL all other times of the day Blood specimen (specimen) 12/03/2013 7:19 AM EDT 12/03/2013 7:19 AM EDT Charis Herrera MD POINT OF CARE TEST O HARINDER Performing Organization Address [facility] de Phone Number [facility] * (ABNORMAL) Differential, Automated (12/03/2013 4:21 AM EDT) Neutrophils % 72.1(H) 34.0 - 71.0 % [facility] Neutr Abs (ANC) 9.42(H) 1.50 - 6.30 [...] ORDERABLE S CERNER MILLENNIUM * (ABNORMAL) Hemogram (12/03/2013 4:21 AM [...] MD HEMATOLOGY ORDERABLE S Performing Organization Address [facility] de Phone Number [facility] RAENNIUM * Prothrombin Time (12/03/2013 4:21 AM EDT) PT 13.8 12.5 - 15.[address] [facility] MILLENNIUM Comment: [facility] Transfusion Committee Guidelines: INR less than 2.0, PTT less than OR equal to 43.5 seconds, or Fibrinogen greater than or equal to 100 mg/dl indicate adequate procoagulant activity for hemostasis in patients without underlying bleeding disorders. INR 1.0 0.9 - 1.1 [facility] MILLENNIUM Blood specimen (specimen) 12/03/2013 4:21 AM EDT 12/03/2013 4:27 AM EDT Narrative Resulting Agency Comment Spec In Lab Charis Herrera MD HEMATOLOGY ORDERABLE S Performing Organization Address City/State/[facility] Co de Phone Number [facility] * (ABNORMAL) Basic Metabolic Panel (non-fasting) (12/03/2013 4:21 AM EDT) Glucose Lvl 169 60 - 199 mg/dL [facility] MILLENNIUM Comment:Diabetes: >=200 mg/d L plus symptoms BUN 13 10 - 20 mg/dL [facility]ILL[facility] Creatinine 0.81 0.80 - 1.50 mg/dL [facility] MILLENNIUM Comment: Please note that the pediatric reference intervals supplied above were not validated at [facility]. Results from pediatric patients should be interpreted [...] the following links into your internet browser. [email or web address] Blood specimen (specimen) 12/03/2013 4:21 AM EDT 12/03/2013 4:27 AM EDT Narrative Resulting Agency Comment Spec In Lab Charis Herrera MD CHEMISTRY ORDERABLES RANDY MORALES * POCT Glucose (12/03/2013 3:54 AM EDT) POC Glucose 185 60 - 199 mg/dL [facility] MILLENNIUM Comment: Supplemental ranges: <140 mg/dL before meals <180 mg/dL all other times of the day Blood specimen (specimen) 12/03/2013 3:54 AM EDT 12/03/2013 3:54 AM EDT Charis Herrera MD POINT OF CARE TEST O RDERATESSA Performing Organization Address [facility] de Phone Number [facility] * POCT Glucose (12/03/2013 12:06 AM EDT) POC Glucose 154 60 - 199 mg/dL [facility] Comment: Supplemental ranges: <140 mg/dL before meals <180 mg/dL all other times of the day Blood specimen (specimen) 12/03/2013 12:06 AM EDT 12/03/2013 12:06 AM EDT Charis Herrera MD POINT OF CARE TEST O HARINDER Performing Organization Address [facility] de Phone Number [facility]ENTERJERE KNAPPBANNER [facility] * POCT Glucose (12/02/2013 8:51 PM EDT) POC Glucose 164 60 - 199 mg/dL [facility] Comment: Supplemental ranges: <140 mg/dL before meals <180 mg/dL all other times of the day Blood specimen (specimen) 12/02/2013 8:51 PM EDT 12/02/2013 8:51 PM EDT Charis Herrera MD POINT OF CARE TEST O HARINDER Performing Organization Address [facility] de Phone Number CERJERE LOVEIUM * (ABNORMAL) POCT Glucose (12/02/2013 7:09 PM EDT) POC Glucose 226(H) 60 - 199 mg/dL [facility] MILLENNIUM Comment: Supplemental ranges: <140 mg/dL before meals <180 mg/dL all other times of the day Blood specimen (specimen) 12/02/2013 7:09 PM EDT 12/02/2013 7:09 PM EDT Charis Herrera MD POINT OF CARE TEST O RDERATESSA Performing Organization Address [facility] de Phone Number RANDY KNAPPENNIUM * Prothrombin Time (12/02/2013 4:46 PM EDT) PT 13.0 12.5 - 15.5 sec RANDY [facility] Comment: [facility] Transfusion Committee Guidelines: INR less than 2.0, PTT less than OR equal to 43.5 seconds, or Fibrinogen greater than or equal to 100 mg/dl indicate adequate procoagulant activity for hemostasis in patients without underlying bleeding disorders. INR 0.9 0.9 - 1.1 RANDY MORALES Blood specimen (specimen) 12/02/2013 4:46 PM EDT 12/02/2013 4:53 PM EDT Narrative Resulting Agency Comment Spec In Lab Charis Herrera MD HEMATOLOGY ORDERABLE S Performing Organization Address [facility] de Phone Number RANDY [facility] * (ABNORMAL) POCT Glucose (12/02/2013 4:11 PM EDT) POC Glucose 207(H) 60 - 199 mg/dL [facility] Comment: Supplemental ranges: <140 mg/dL before meals <180 mg/dL all other times of the day Blood specimen (specimen) 12/02/2013 4:11 PM EDT 12/02/2013 4:11 PM EDT Charis Herrera MD POINT OF CARE TEST O RDERABLES Performing Organization Address [facility] de Phone Number RANDY [facility] * POCT Glucose (12/02/2013 10:06 AM EDT) POC Glucose 165 60 - 199 mg/dL RANDY [facility] Comment: Supplemental ranges: <140 mg/dL before meals <180 mg/dL all other times of the day Blood specimen (specimen) 12/02/2013 10:06 AM EDT 12/02/2013 10:06 AM EDT Charis Herrera MD POINT OF CARE TEST O RDERABLES Performing Organization Address [facility] Co de Phone Number [facility] * Surgical Pathology Report (12/02/2013 9:56 AM EDT) Surgical Pathology Report ? [facility] ? Provider: ?? CHARIS HERRERA ?? Pt. Name: ?? MERRYZACK VINCENT ? Acc #: ?[id number] ?Pt. ? Col Date: ?? 12/02/2013 ? [...] ? Clinical Diagnosis: ? Left DJD RANDY MORALES 12/02/2013 9:56 AM EDT Charis Herrera MD PATHOLOGY/CYTOLOGY O HARINDER Performing Organization Address [facility] de Phone Number [facility] * Specimen to Pathology (surgical or derm) (12/02/2013 9:31 AM EDT) AP Specimen 12/02/2013 9:31 AM EDT 12/02/2013 9:31 AM EDT Narrative [facility] - 12/02/2013 9:31 AM EDT Specimen requisition ordered. ??Separate Pathology report to follow Charis Herrera MD PATHOLOGY/CYTOLOGY O HARINDER Performing Organization Address [facility] de Phone Number [facility] * POCT Glucose (12/02/2013 7:26 AM EDT) POC Glucose 139 60 - 199 mg/dL [facility] Comment: Supplemental ranges: <140 mg/dL before meals <180 mg/dL all other times of the day Blood specimen (specimen) 12/02/2013 7:26 AM EDT 12/02/2013 7:26 AM EDT Charis Herrera MD POINT OF CARE TEST O HARINDER Performing Organization Address [facility] de Phone Number [facility] * APTT (12/02/2013 7:25 AM EDT) PTT 29 25 - 35 sec [facility] Comment: Recommended therapeutic PTT range for full dose unfractionated heparin is 80-114 seconds. Blood specimen (specimen) 12/02/2013 7:25 AM EDT 12/02/2013 7:27 AM EDT Narrative Resulting Agency Comment Spec In Lab Sachi Fontanez MD HEMATOLOGY ORDERABLE S Performing Organization Address [facility] Co de Phone Number RANDY MORALES * Prothrombin Time (12/02/2013 7:25 AM EDT) PT 12.7 12.5 - 15.5 sec CERNER [facility] Comment: [facility] Transfusion Committee Guidelines: INR less than 2.0, PTT less than OR equal to 43.5 seconds, or Fibrinogen greater than or equal to 100 mg/dl indicate adequate procoagulant activity for hemostasis in patients without underlying bleeding disorders. INR 0.9 0.9 - 1.1 CERNER [employer] Blood specimen (specimen) 12/02/2013 7:25 AM EDT 12/02/2013 7:27 AM EDT Narrative Resulting Agency Comment Spec In Lab Sachi Fontanez MD HEMATOLOGY ORDERABLE S Performing Organization Address [facility] Co de Phone Number RANDY MORALES documented in this encounter Visit Diagnoses Diagnosis S/P Left total knee arthroplasty, 12/02/13. Herrera- Primary Knee joint replacement by other means S/P total knee arthroplasty, left Osteoarthritis of knee Osteoarthrosis, unspecified whether generalized or localized, lower leg documented in this encounter Administered Medications Inactive Administered Medications - up to 3 most recent administrations Medication Order MAR Action Action Date Dose Rate Site bacitracin injection ONCE PRN, Starting on Mon12/02/13 at 0810, Until Mon12/02/13 at 1409, Intra-Operative (Intra-Procedure), Routine Given 12/02/2013 8:10 AM EDT 50,000 Units 19- Surgical Site documented in this encounter Active and Recently [...] Elfego Garcia RN)2118 (Given - Provider: Naresh Rojo, ELMA) 0605 (Given - Provider: Naresh Rojo, ELMA) atorvastatin (LIPITOR) tablet 10 mg (CANCELED) 10 mg, Oral, EVERY EVENING, First dose on Mon12/02/13 at 1900, Until Discontinued, Interchanged for pravastatin 20mg daily per Pharmacy and Therapeutics (P&T) Committee therapeutic interchange policy., Routine 1719 (Given - Provider: Elfego Garcia RN) 1655 (Given - Provider: Elfego Garcia RN) 1703 (Given - Provider: Marcelina Sims, ELMA) ceFAZolin (ANCEF) 1g in dextrose 5% 50mL [...] Unit), Indication for (Active or Suspected): Prophylaxis 0228 (Given - Provider: Eli Adames RN) diaZEPam (VALIUM) tablet 5 mg (COMPLETED) 5 mg, Oral, ONCE, 1 dose, On Mon12/04/13 at 0030, Routine 0019 (Given - Provider: Naresh Rojo RN) enoxaparin (LOVENOX) injection 40 mg (COMPLETED) 40 mg, Subcutaneous, ONCE, 1 dose, On Mon12/04/13 at 1000, Routine 1055 (Given - Provider: Elfego Garcia RN) enoxaparin (LOVENOX) injection 40 mg (COMPLETED) 40 mg, Subcutaneous, ONCE, 1 dose, On Henny 12/05/13 at 1000, Routine 1040 (Given - Provid er: Marcelina Sims RN) esomeprazole (NexIUM) capsule 40 mg (CANCELED) 40 mg, Oral, DAILY, First dose on Mon12/02/13 at 1630, Until Discontinued, Routine 0819 (Given [...] 2015, Routine 2002 (Given - Provider: Naresh Rojo RN) fentaNYL 50mcg/mL injection (COMPLETED) 50 mcg, Intravenous, ONCE, 1 dose, On Mon12/03/13 at 2130, Routine 2117 (Given - Provider: Naresh Rojo, ELMA) fentaNYL 50mcg/mL injection (COMPLETED) 75 mcg, Intravenous, ONCE, 1 dose, On Mon12/04/13 at 0015, Routine 0011 (Given - Provider: Naresh Rojo, ELMA) glipiZIDE (GLUCOTROL) CR tablet 10 mg (CANCELED) 10 mg, Oral, DAILY, First dose on Mon12/02/13 at 1900, Until Discontinued, Routine 0821 (Given - Provider: Elfego Garcia RN) 0819 (Given - Provider: Elfego Garcia RN) 0807 (Given - Provider: Marcelina Sims, ELMA) hydrochlorothiazide (HYDRODIURIL) tablet 25 mg (CANCELED) 25 mg, Oral, DAILY, First dose on Mon12/03/13 at 0900, Until Discontinued, Routine 0819 (Given - Provider: Elfego Garcia RN) 08 (Given - Provider: Elfego Garcia RN) 0807 (Given - Provider: Marcelina Sims RN) HYDROmorphone (DILAUDID) injection 0.5 mg (COMPLETED) 0.5 [...] Garcia RN - Reason: Order parameters not met)2000 (Not Given - Provider: Naresh Rojo RN [...] (Given - Provider: Marcelina Sims RN) multivitamin Kwey-Ru-YU-Min (THERAPEUTIC-M) 27-0.4 mg tablet 1 tablet (CANCELED) 1 tablet, Oral, DAILY, First dose on Mon12/02/13 at 1630, Until Discontinued 0819 (Given - Provider: Elfego Garcia RN) 0819 (Given - Provider: Elfego Garcia RN) 0807 (Given - Provider: Marcelina Sims RN) polyethylene glycol (MIRALAX) packet 17 g 17 g, Oral, 2 TIMES DAILY, First dose on Mon12/02/13 at 2100, Until Discontinued, Administer if needed per patient's routine or if no bowel movement within 48 hours, Routine 0821 (Given - Provider: Elfego Garcia RN)2117 (Given - Provider: Naresh Rojo, ELMA) 0819 (Given - Provider: Elfego Garcia RN)2037 (Given [...] 1030, Until Discontinued, Recovery (Recovery-Hospital Unit), Routine 08 (Given - Provider: Elfego Garcia RN)2005 (Given - Provider: Naresh Rojo RN) 08 (Given - Provider: Elfego Garcia RN)2038 (Given [...] Order 12/03/2013 12/04/2013 12/05/2013 fentaNYL 50 mcg/mL GUARD ENTRANCE REGISTRAR 30 mL (CANCELED) Intravenous, GUARD ENTRANCE REGISTRAR ONLY, Starting on Mon12/04/13 at 0045, Until Mon12/04/13 at 0200 0050 (New Syringe/Cartridge - Provider: Naresh Rojo, RN) fentaNYL 50 mcg/mL GUARD ENTRANCE REGISTRAR 30 mL (CANCELED) Intravenous, GUARD ENTRANCE REGISTRAR ONLY, Starting on Mon12/04/13 at 0230, Until Mon12/05/13 at 0759 0230 (Rate/Dose Change - Provider: Naresh Rojo RN)1125 (Rate/Dose Change - Provider: Elfego Garcia RN)1129 (New Syringe/Cartridge - Provider: Elfego Garcia RN)2200 (New Syringe/Cartridge - Provider: Elfego Garcia RN) 0850 (Stopped - Provider: Marcelina Sims RN) HYDROmorphone (DILAUDID) 1 mg/mL GUARD ENTRANCE REGISTRAR 30 mL (CANCELED) Intravenous, GUARD ENTRANCE REGISTRAR ONLY, Starting on Mon12/03/13 at 2100, Until Mon12/03/13 at 2321 2130 (New Syringe/Cartridge - Provider: Naresh Rojo, ELMA) HYDROmorphone (DILAUDID) 1 mg/mL GUARD ENTRANCE REGISTRAR 30 mL (CANCELED) Intravenous, GUARD ENTRANCE REGISTRAR ONLY, Starting on Mon12/03/13 at 2345, Until [...] Starting on Mon12/02/13 at 1613, Until Henny 10/9/14 at 1937, Constipation, Administer if needed per patient's routine or if no bowel movement within 48 hours, Routine diaZEPam (VALIUM) tablet 5 mg 5 mg, Oral, EVERY 6 HOURS PRN, Starting on Mon12/04/13 at 0940, Until Henny 12/05/13 at 1937, Anxiety, muscle spasms, Routine 1822 (Given - Provider: Elfego Garcia RN) 0808 (Given - Provider: Marcelina Sims RN) HYDROmorphone (DILAUDID) tablet 12 mg (CANCELED)(Linked Group 2) 12 mg, Oral, EVERY 3 HOURS PRN, Starting on Mon12/03/13 at 1849, Until Mon12/04/13 at 1121, Pain, for severe pain, May give an additional 4 mg one time if pain not relieved in 30-60 minutes., Routine 190 (See Alternative - Provider: Elfego Garcia RN)2246 (Given - Provider: Naresh Rojo RN) HYDROmorphone (DILAUDID) tablet 2-6 mg (CANCELED) [...] pain not relieved in 30-60 minutes., Routine 190 (Given - Provider: Elfego Garcia RN - Comment: 6mg per MD)2246 (See Alternative - Provider: Naresh Rojo RN) oxyCODONE (ROXICODONE) immediate release tablet 10 mg(Linked Group 3) 10 mg, Oral, EVERY 3 HOURS PRN, Starting on Mon12/04/13 at 2003, Until Henny 12/05/13 at 1937, Pain, mild pain, May give additional 5 mg in 30 minutes times 1 if pain not relieved., Routine 2038 (See Alternative - Provider: Elfego Garcia RN)2345 (See Alternative - Provider: Yaquelin Martines, ELMA) 0253 (See Alternative - Provider: Yaquelin Martines RN)0555 (See Alternative - Provider: Yaquelin Martines RN)0855 (See Alternative - Provider: Marcelina Sims, RN)1155 (See Alternative - Provider: Marcelina Sims, RN)1256 (Given - Provider: Marcelina Sims, RN)1633 (See Alternative - Provider: Marcelina Sims, RN) oxyCODONE (ROXICODONE) immediate release tablet 15 [...] 15 mg (CANCELED) 15 mg, Oral, EVERY 3 HOURS PRN, [...] oxyCODONE (ROXICODONE) immediate release tablet 20 mg (CANCELED)(Linked Group 3) 20 mg, Oral, EVERY 3 HOURS PRN, [...] Yaquelin Martines RN)0855 (Given - Provider: Marcelina Sims, ELMA)1155 (Given - Provider: Mracelina Sims, ELMA)1256 (See Alternative - Provider: Marcelina Sims RN)1633 (See Alternative - Provider: Marcelina Sims RN) oxyCODONE (ROXICODONE) immediate release tablet 30 mg (CANCELED)(Linked Group 3) 30 mg, Oral, EVERY 3 HOURS PRN, [...] Sims RN)1155 (See Alternative - Provider: Marcelina Sims, ELMA)1256 (See Alternative - Provider: Marcelina Sims, ELMA)1633 (Given - Provider: Marcelina Sims, ELMA) Linked Groups Order Group 1: fentaNYL (DURAGESIC) 50 mcg/hr patch 1 patch (CANCELED)Jump to med 1 patch, Transdermal, EVERY 72 HOURS, First dose on Mon12/04/13 at 1500, Until Discontinued, Place fentaNYL patch, Routine And fentaNYL (DURAGESIC) patch REMOVAL (CANCELED) Transdermal, EVERY 72 HOURS, First dose on Mon12/07/13 at 1500, Until Discontinued, Remove Fentanyl Patch And Patch Verification (CANCELED) Transdermal, EVERY 12 HOURS, First dose on Mon12/05/13 at 0000, Until Discontinued, Verify patch Group [...] Group 3: oxyCODONE (ROXICODONE) immediate release tablet 10 mgJump to med 10 mg, Oral, EVERY 3 HOURS PRN, Starting on Mon12/04/13 at 2002, Until Henny 12/05/13 at 1937, Pain, mild pain, May give additional 5 mg in 30 minutes times 1 if pain not relieved., Routine Or oxyCODONE (ROXICODONE) immediate release tablet 20 mg (CANCELED)Jump to med 20 mg, Oral, EVERY 3 HOURS PRN, Starting on Mon12/04/13 at 2002, Until Henny 12/05/13 at 1937, Pain, moderate pain, May give additional 5 mg in 30 minutes times 1 if pain not relieved., Routine Or oxyCODONE (ROXICODONE) immediate release tablet 30 mg (CANCELED)Jump to med 30 mg, Oral, EVERY 3 HOURS PRN, Starting on Mon12/04/13 at 2002, Until Henny 12/05/13 at 1937, Pain, severe pain or opiate tolerant patient, Do not start patient with 15 mg dose. Do not give if patient is opiate niave., Routine Group 4: oxyCODONE (ROXICODONE) immediate release [...] If pain not relieved, call provider., Routine documented in this encounter Care Teams News Producer Relationship Specialty Start Date End Date Reece Calixto MD [address] [place] [address] PCP - General 12/21/11 12/10/14 documented as of this encounter
--- OUTSIDE RECORDS SUMMARY | 2023-09-07 12:24 | XMS_ITS | Encounter Summary ---
Author Organization [facility] [place] [address] Care Team Providers Care Mason Apprentice Name Role Phone Ashley Calixto MD Primary Care Provider [phone] Reason for Visit * Reason Onset Date Comments Medication Refill 12/20/2013 Encounter Details Date Type Department Care Team (Late st Contact Info) Description 12/20/2013 Refill [place] [address] Mihir Herrera MD [facility] [place] [address] Knee joint replacement by other means (Primary [...] Telephone Encounter - Meghana Gleason RN - 12/20/2013 11:07 AM EDT Patient Name: Zack Beeiott : [id number] MR#: [id number] Case Date: 12/02/2013 Surgeon: Surgeon(s) and Role: * Mihir Herrera MD - Primary * Florencio Davenport PA - Physician Commercial Appraiser Preoperative diagnosis: Left DJD Postoperative diagnosis: Left DJD Procedure(s): @TOTAL KNEE ARTHROPLASTY MODIFIER: ATTUNE STABILIZED ROTATING PLATFORM DEPUY Taper continued - one tablet up to 5 times daily - prescription mailed per request. * Telephone Encounter - Clarissa Hunt - 12/20/2013 10:34 AM EDT Person calling? PATIENT'S FIANCE (ANA LUISA) What medication are you refilling? OXYCODONE 10MG 5 TIMES DAILY Would you like this called into a pharmacy? If so, which one? N/A If not, are you coming to pick this up? N/A Or, would you like this mailed to your home YES. Best number to reach person calling? [phone] The nurse will call you when your prescription is ready, please allow up to 72 hrs for processing. documented in this encounter Plan of Treatment Not on file documented as of this encounter Visit Diagnoses Diagnosis Knee joint replacement by other means- Primary documented in this encounter Care Teams Mason Apprentice Relationship Specialty Start Date End Date Ashley Calixto MD [address] [place] [address] PCP - General 12/21/11 12/10/14 documented as of this encounter
--- OUTSIDE RECORDS SUMMARY | 2023-09-07 12:24 | XMS_ITS | Encounter Summary ---
[place] [address] Care Team Providers Care Youth Ministry Director Name Role Phone Ashley Calixto MD Primary Care Provider [phone] Reason for Visit * Reason Onset Date Comments Medication Refill 12/27/2013 Encounter Details Date Type Department Care Team (Late st Contact Info) Description 12/27/2013 [place] [address] Erica Park RN Knee joint replacement by other means [...] Telephone Encounter - Erica Castro RN - 12/27/2013 10:37 AM EDT Next taper to start on 12/30. 10 mg four times a day. We will mail out that prescription today. documented in this encounter Plan of Treatment Not on file documented as of this encounter Visit Diagnoses Diagnosis Knee joint replacement by other means- Primary documented in this encounter Care Teams Youth Ministry Director Relationship Specialty Start Date End Date Ashley Calixto MD [facility] [address] [facility] [address] [place] [address] PCP - General 12/21/11 12/10/14 documented as of this encounter
--- OUTSIDE RECORDS SUMMARY | 2023-09-07 12:24 | XMS_ITS | Encounter Summary ---
[place] [address] Care Team Providers Care Harness Placer Name Role Phone Ashley Calixto MD Primary Care Provider [phone] Reason for Visit * Reason Onset Date Comments Referral 11/22/2013 Encounter Details Date Type Department Care Team (Late st Contact Info) Description 11/22/2013 Telephone [place] [id number] Charla Parker Referral Social History Tobacco Use Types Packs/Day Years [...] encounter Miscellaneous Notes * Telephone Encounter - Charla Rodarte - 11/22/2013 2:01 PM EDT ERROR documented in this encounter Plan of Treatment Not on file documented as of this encounter Visit Diagnoses Not on filedocumented in this encounter Care Teams Harness Placer Relationship Specialty Start Date End Date Ashley Calixto MD [address] [place] [address] PCP - General 12/21/11 12/10/14 documented as of this encounter
--- OUTSIDE RECORDS SUMMARY | 2023-09-07 12:24 | XMS_ITS | Encounter Summary ---
Author Organization [facility] [place] [address] Care Team Providers Care Personal Vehicle Advisor Name Role Phone Ashley Calixto MD Primary Care Provider [phone] Reason for Visit * Reason Onset Date Comments New Medication Request 12/25/2013 Encounter Details Date Type Department Care Team (Late st Contact Info) Description 12/25/2013 Telephone [place] [address] Mihir Herrera MD [facility] [place] [address] New Medication Request Social History Tobacco Use Types Packs/Day Years [...] Encounter - Erica Castro RN - 12/25/2013 10:52 AM EDT Spoke with Mr Langley. He states that he started the 20 mg 4 times a day, today. We will mail him the prescription for the extra 13 tablets with the correct dosing today. His next refill should be for 10 mg 4 times a day for 6 days. * Telephone Encounter - Erica Castro RN - 12/25/2013 8:43 AM EDT The prescription sent on the was incorrect. It should have been 20 mg 4 times a day for 6 daysand a quantity of 48. He was sen 35 which is 13 tablets short. [facility] will need [facility] correct it with the next prescription. No answer when the call was returned. He will Need to call back to let us know which day he started the wean so we can figure out when to get him more medication. * Telephone Encounter - Ryan Seay - 12/25/2013 8:27 AM EDT Ana Luisa calling stating that the prescription that was sent was wrong. Person calling? Ana Luisa - Patient's fiancee What medication are you refilling? Oxycodone - it was sent in wrong, when she called it in she readthe pain clinic information wrong. The medication should be for twice the amount due to her misreading of the prescription recommendedfrom Pain Clinic note from [facility]. It reads: This week 20mg 4x per day for 6 days. Next week is suppose to be the 10 mg 4x per day. Would you like this called into a pharmacy? If so, which one? [facility] Best number to reach person calling? ANA LUISA IS AT WORK, BUT REQUESTED THAT WE CALL ZACK DIRECTLY [phone] The nurse will call you when your prescription is ready, please allow up to 72 hrs for processing. documented in this encounter Plan of Treatment Not on file documented as of this encounter Visit Diagnoses Diagnosis Knee joint replacement by other means- Primary documented in this encounter Care Teams Personal Vehicle Advisor Relationship Specialty Start Date End Date Ashley Calixto MD [address] [place] [address] PCP - General 12/21/11 12/10/14 documented as of this encounter
--- OUTSIDE RECORDS SUMMARY | 2023-09-07 12:24 | XMS_ITS | Encounter Summary ---
Author Organization [facility] [place] [address] Care Team Providers Care Electronics Research Engineer Name Role Phone Ashley Calixto MD Primary Care Provider [phone] Reason for Visit * Reason Onset Date Comments Medication Refill 12/16/2013 Encounter Details Date Type Department Care Team (Late st Contact Info) Description 12/16/2013 [place] [address] Mihir Herrera MD [facility] [place] [address] Knee joint replacement by other means (Primary [...] Telephone Encounter - Meghana Gleason RN - 12/16/2013 8:40 AM EDT Patient Name: Zack Beeiott : [id number] MR#: [id number] Case Date: 12/02/2013 Surgeon: Surgeon(s) and Role: * Mihir Herrera MD - Primary * Florencio Davenport PA - Physician Food And Beverage Lead Preoperative diagnosis: Left DJD Postoperative diagnosis: Left DJD Procedure(s): @TOTAL KNEE ARTHROPLASTY MODIFIER: ATTUNE STABILIZED ROTATING PLATFORM DEPUY Spinal with FNB Review of pain management plan by Pain Center indicates that next prescription for oxycodone 10 mg tablets will be decreased to two tablets up to 5 times daily x 7 days. Prescription generated for mailing according to plan. * Telephone Encounter - Eleanor Esparza - 12/16/2013 8:06 AM EDT Person calling? ANA LUISA BLANK What medication are you refilling? OXYCODONE 10 MG TAB 2 TABS 5 X ADAY 7 DAYS Would you like this called into a pharmacy?NO If so, which one? NO If not, are you coming to pick this up? NO Or, would you like this mailed to your home. TO BE MAILED OVERNIGHT Best number to reach person calling?[phone] The nurse will call you when your prescription is ready, please allow up to 72 hrs for processing. documented in this encounter Plan of Treatment Not on file documented as of this encounter Visit Diagnoses Diagnosis Knee joint replacement by other means- Primary documented in this encounter Care Teams Electronics Research Engineer Relationship Specialty Start Date End Date Ashley Calixto MD [facility] [address] [facility] [address] [place] [address] PCP - General 12/21/11 12/10/14 documented as of this encounter
--- OUTSIDE RECORDS SUMMARY | 2023-09-07 12:25 | XMS_ITS | Encounter Summary ---
Author Organization [facility] [place] [address] Care Team Providers Care Disc Jockey Name Role Phone Ashley Calixto MD Primary Care Provider [phone] Reason for Visit * Reason Comments Follow-up Encounter Details Date Type Department Care Team (Late st Contact Info) Description 06/06/2013 3:00 PM EDT [place] [address] Patience Whitman APRN [facility] [address] [place] [address] Chronic hepatitis C; Fatigue Social History Tobacco Use Types Packs/Day Years Used Date Smoking Tobacco: Every Day Cigarettes 1 25 Comments:working on quitting ; currently down to 3/4 ppd Alcohol Use Standard Drinks/Week Comments Yes 0 (1 standard drink = 0.6 oz pur e alcohol) Not drinking at this time. Sex and Gender Information Value Date Recorded Sex Assigned at Not on file Gender Identity Not on file Sexual Orientation Not on file documented as of this encounter Last Filed Vital Signs Vital Sign Reading Time Taken Comments Blood Pressure 144/79 06/06/2013 2:53 PM EDT Pulse 110 06/06/2013 2:53 PM EDT Temperature - - Respiratory Rate - - Oxygen Saturation - - Inhaled Oxygen Concentration - - Weight 132.9 kg (293 lb) 06/06/2013 2:53 PM EDT Height 180.3 cm (5' 11) 06/06/2013 2:53 PM EDT Body Mass Index 40.87 06/06/2013 2:53 PM EDT documented in this encounter Progress Notes * Patience Whitman, ROOFING SUPERVISOR - 06/06/2013 3:22 PM EDT Subjective: Patient ID: Zack Langley is a 42 y.o. male. HPI Problem List: 1. Hepatitis C, genotype 2b A. [...] he has completed vaccine series through PCP Initial Consult 09/02/11: Mr. Langley is a pleasant 41 year old white male who was seen today at [facility] in follow-up for hepatitis C. He was only recently told that he had hepatitis C, but he tells me today that apparently he tested positive in 2007. He has risk factors for HCV dating back to to 1986 when hestarted using intranasal drugs. 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 He had 2 tattoos placed in group home in 1989 then in 1999. He has his ear pierced which was done in 1992 at home. He denies experiencing icteric illness. He drank ETOH heavily (12 pack beer daily) x 3 years from [age]. His last beer was about one month ago. He has been seeing a substance abuse counselor x 7 years but only be came sober after starting suboxone in February. He has not relapsed. He has no complaints with the exception of the ongoing rash which was evaluated by dermatology. It remains of unclear etiology. He denies fever, chills, diaphoresis, abdominal pain, abdominal distention, N, V, D, melena, hematochezia, confusion, arthralgias. He was recently told he was diabetic and started on metformin. Interval History 05/24/12: Mr. Langley returns today in follow-up for Hepatitis C genotype 2, stage 0-1 fibrosis. He was evaluated by dermatology for persistent rash of one year. He has had two skin biopsies which were non-diagnostic. Dermatology suggested that hepatitis C is likely the cause of the rash. He is cryoglobulin negative. His is 5 months , due in September which is a contraindication for treating patient with ribavirin. For the rash, he has tried several medications including Zyrtec, Atarax, Doxycycline, topical steroid cream. Nothing has helped. The lesions start as small pinpoint erythematous papules. Although thelesions are pruritic he makes an effort to avoid scratching. The lesions then become hyperpigmentedand ulcerated. He tells me that they will start to heal then flare. The lesions are very tender to touch. The rash started at the same time he was started on Luvox and Suboxone. He has noted a question of foot fungus with thick, yellowed, cracking skin on soles of feet and yellowed, thick toenails. His feet are very painful which prevent him from exercising. He has an appt with podiatry pending. He notes that he has dramatically improved his diet. He has cut out all soda consumption. He is noteating after 8 pm. Unfortunately he cannot exercise due to pain in feet and painful skin lesions. He has unfortunately gained 16 lbs since his last visit. Interval History 07/27/12: Mr. Langley returns today in follow-up for hepatitis C genotype 2. He tells me that he was on Isoniazid for latent TB for 8 months. I was not aware pt had been on this medication as it has never been on his medication list. He developed double vision, swelling in joints, swelling/fluid in his abdomen, dark urine, black stools. His PCP checked labs and stool studies about 8 weeks ago then abruptly discontinued this medication. It is not clear if his LFT's were monitored while on this medication. His symptoms are certainly concerning. He tells me that since discontinuing this medication about 8 weeks ago he has been feeling significantly better. His joint pain and swelling is resolving. His sores started to heal within 4 days. Interval History 11/12/12: Mr. Langley returns today in follow-up. He tells me that since discontinuing the Isoniazid he has been feeling great. His son was born on 09/26/12, both mom and baby are doing well. He continues to smoke 1/2-1 ppd. He has not started exercising although over the weekend he cleaned out the exerciseroom in anticipation of starting to exercise. He tells me his weight fluctuates significantly by 10lbs. He denies fever, chills, sweats, chest pain, dyspnea, melena, hematochezia, N, V, confusion. He is suffering from constipation despite Colace daily. Interval History 06/06/13: Mr. Langley returns today in follow-up. He tells me that the Isoniazid rash has completely resolved. He is working on weight loss through diet and exercise. He and his purchased a recumbent bikeabout one month ago. He rides the bike for about an hour daily. He tells me that his weight was 310lbs prior to purchasing exercise bike. If that is the case, he has lost 17 lbs in past month. He continues to smoke 1 ppd. His constipation is intermittent but is not taking anything for this currently. He denies fever, chills, sweats, chest pain, dyspnea, melena, hematochezia, N, V, confusion BUPRENORPHINE HCL/NALOXONE HCL (SUBOXONE SL); METFORMIN HCL (METFORMIN ORAL); pravastatin (PRAVACHOL) 20 mg tablet; aspirin 325 mg tablet; [DISCONTINUED] buprenorphine-naloxone (SUBOXONE) 8-2 mg Subl Allergies Allergen Reactions ??? Isoniazid ? Rash... Family Status Relation Status Age ??? Mother 54 [place] ??? Father 56 [place] ??? Sister Alive age 61 ??? Sister [...] Comment. CR-0 04/24/12 VMS 04/26/12 Verified by: Laron Philippe MD Dermatopathologist (Electronic Signature) The attending pathologist whose [...] and Plan: Mr. Langley is a pleasant 42 year old white male seen in follow-up for hepatitis C, genotype 2b, stage 0-1 fibrosis. He has risk factors for hepatitis C dating back 20-25 years. He has been clean since February 2011 at which time he was started on suboxone. 1. Rash, due to Isoniazid. Rash now completely resolved. 2. Hepatitis C, genotype 2b, stage 0-1. Explained that that the new HCV medication (sofosbuvir) was FDA approved in January. At this time [place] Medicaid is not approving HCV treatment pending state meeting which ideally will take place this month. He will require sofosbuvir 400 mg once daily + ribavirin 1400 mg (div doses) x 12 weeks. Sideeffects with sofosbuvir include fatigue, SNOW, mild nausea, but in general is well-tolerated. Ribavirin can cause anemia and rash. Will plan to obtain baseline labs and EKG today and attempt to get treatment approved. I will need to see him at week 2,4,8,12 of treatment with labs same day. 3. Class III obesity. This is significant risk factor for COELHO. He was noted to have steatosis on ultrasound in February which increases my concern that his liver disease is progressing due to combination of HCV and COELHO. He has been working on weight loss through diet and exercise. He is riding recumbent bike daily x > 1 hr. He tells me he has lost 17 lbs in past month with exercise. Encouraged continued weight loss efforts. 4. Hepatitis A and B vaccine series. He tells me that he completed vaccine series through PCP. 5. Tobacco use. I have strongly advised smoking cessation. 6. Latent TB. He is being followed by Infectious Disease specialist. 7. Constipation, improved. OK to use Miralax PRN. All of his questions were answered. He verbalized understanding and agreement to the plan of care. I will plan to see him back in February with labs and ultrasound. -Baseline labs today -EKG today -Attempt to get [place] Medicaid to approve Tx -F/U at weeks 2, 4, 8, 12 of treatment. documented in this encounter Plan of Treatment Not on file documented as of this encounter Procedures Procedure Name Priority Date/Time Associated Diagnosis Comments EKG 12-LEAD Routine 06/06/2013 4:01 PM EDT Chronic hepatitis C Fatigue documented in this encounter Results * TSH (06/06/2013 4:27 PM EDT) TSH 2.15 0.27 - 4.20 mcIU/mL RANDY RARIP Blood specimen (specimen) 06/06/2013 4:27 PM EDT 06/06/2013 4:33 PM EDT Narrative Resulting Agency Comment Spec In Lab Subha Ross MD CHEMISTRY ORDERABLES [facility] * EKG 12 Lead (06/06/2013 4:01 PM EDT) Ventricular rate 93 BPM MUSE SYSTEM Atrial Rate 93 BPM MUSE SYSTEM P-R Interval 158 ms MUSE SYSTEM QRS Duration 94 ms MUSE SYSTEM Q-T Interval 356 ms MUSE SYSTEM QTC Calculated (Bezet) 442 ms MUSE SYSTEM Calculated P [place] 65 degrees MUSE SYSTEM Calculated R [place] -4 degrees MUSE SYSTEM Calculated T [place] 38 degrees MUSE SYSTEM INTERPRETATION Normal sinus rhythm Normal ECG No previous ECGs available I personally reviewed the tracing and edited the fellows interpretation Confirmed by fellow MD Froilan, Brock Rasmussen ([id number]) on 06/07/2013 11:44:21 AM Confirmed by MD MASOUD, CHIP ([id number]) on 06/07/2013 2:02:03 PM MUSE SYSTEM 06/06/2013 4:01 PM EDT 06/07/2013 2:02 PM EDT Subha Ross MD ECG ORDERABLES [employer] SYSTEM documented in this encounter Visit Diagnoses Diagnosis Chronic hepatitis C Chronic hepatitis C without mention of hepatic coma Fatigue Other malaise and fatigue documented in this encounter Care Teams Disc Jockey Relationship Specialty Start Date End Date Ashley Calixto MD [address] [place] [address] PCP - General 12/21/11 12/10/14 documented as of this encounter
--- OUTSIDE RECORDS SUMMARY | 2023-09-07 12:25 | XMS_ITS | Encounter Summary ---
Author Organization [facility] Address [facility] [place] [address] Care Team Providers Care Chair Frame Builder Name Role Phone Ashley Calixto MD Primary Care Provider [phone] Encounter Details Date Type Department Care Team (Latest Contact Info) Description 06/06/2013 4:15 PM EDT - 06/06/2013 11:59 PM EDT Hospital [place] [address] Subha Ross MD [facility] [place] [address] Chronic hepatitis C; Fatigue Discharge Disposition: Home Social History Tobacco Use [...] tablet Take 20 mg by mouth daily. BUPRENORPHINE HCL/NALOXONE HCL (SUBOXONE SL) Place 3 mg under the tongue daily. 12/05/2013 METFORMIN HCL (METFORMIN ORAL) Take 4 tablets by mouth daily. 500mg 12/11/2014 aspirin 325 mg tablet Take 81 mg by mouth daily. 11/21/2013 documented as of this encounter Plan of Treatment Not on file documented as of this encounter Procedures Procedure Name Priority Date/Time Associated Diagnosis Comments HCV QUANT Routine 06/06/2013 4:27 PM EDT Chronic hepatitis C DIFFERENTIAL, AUTOMATED Routine 06/06/2013 4:27 PM EDT HEPATITIS C RNA, QUANTITATIVE, PCR Routine 06/06/2013 4:27 PM EDT Chronic hepatitis C CBC (WITH DIFF) Routine 06/06/2013 4:27 PM EDT Chronic hepatitis C TSH Routine 06/06/2013 4:27 PM EDT Chronic hepatitis C Fatigue COMPREHENSIVE METABOLIC PANEL (NON-FASTING) Routine 06/06/2013 4:27 PM EDT Chronic hepatitis C documented in this encounter Results * Differential, Automated (06/06/2013 4:27 PM EDT) Neutrophils % 52.7 34.0 - 71.0 % CERNER MILLENNIUM Neutr Abs (ANC) 5.15 1.50 - 6.30 x10(3)/mcL CERNER MILLENNIUM Lymphocytes % 36.8 19.0 - 53.0 % CERNER MILLENNIUM Lymphocytes Abs 3.6 1.0 - 3.6 x10(3)/mcL CERNER MILLENNIUM Monocytes % 6.3 4.0 - 13.0 % CERNER MILLENNIUM Monocyte Abs 0.6 0.2 - 1.0 x10(3)/mcL CERNER MILLENNIUM Eosinophils % 3.7 0.0 - 7.0 % CERNER MILLENNIUM Eosinophils Abs 0.4 0.0 - 0.5 x10(3)/mcL CERNER MILLENNIUM Basophils % 0.4 0.0 - 2.0 % CERNER MILLENNIUM Basophils Abs 0.0 0.0 - 0.2 x10(3)/mcL CERNER MILLENNIUM Immature Gran % 0.10 0.00 - 0.66 % CERNER MILLENNIUM Comment: Immature granulocytes(IG's)percentage and absolute count will include metamyelocytes, myelocytes, and promyelocytes. Blood smears from CBCs yielding IG's will be scanned manually for concordance. If this scan disagrees with the automated IG or if promyelocytes are noted, a manual differential will be performed. Alexa Gran Abs 0.01 0.00 - 0.05 x10(3)/mcL [facility] Blood specimen (specimen) 06/06/2013 4:27 PM EDT 06/06/2013 4:33 PM EDT Subha Ross MD HEMATOLOGY ORDERABLE S Performing Organization Address [facility] Co de Phone Number [facility] * HCV Quant Devonte (06/06/2013 4:27 PM EDT) [facility] HCV Viral Load [id number] IU/mL [facility] HCV Viral Load Result: [id number] Indication for Study: Hepatitis C Infection Analysis: A quantitiative real time reverse transcriptase PCR assay was performed on extracted viral RNA for the purpose of quantification. Sample: plasma (1 mL minimum volume) Method: Devonte Jose TaqMAN 48 HCV Linear Range: 43IU/mL - 69,000,000IU/mL (95% CI) Interpretation: The result of this analysis is within the limits of detection of the assay. Note: This assay is being performed in the [facility] Molecular Pathology Laboratory. Bertin Beach, Ph.D. Director, Molecular Pathology [facility] Comment: [VERIFIED DATE]06.11.13 Verified By:Michelle Ayala I (Electronic Signature) Blood specimen (specimen) 06/06/2013 4:27 PM EDT 06/10/2013 8:12 AM EDT Narrative Resulting Agency Comment Spec In Lab Subha Ross MD HEMATOLOGY ORDERABLE S Performing Organization Address [facility] de Phone Number [facility] * (ABNORMAL) Comprehensive metabolic panel (non-fasting) (06/06/2013 4:27 PM EDT) [facility] Glucose Lvl 244(H) 60 - 199 mg/dL [facility] Comment:Diabetes: >=200 mg/d L plus symptoms BUN 10 10 - 20 mg/dL CERNER MILLENNIUM Creatinine 0.72(L) 0.80 - 1.50 mg/dL CERNER MILLENNIUM Comment: Please note that the pediatric reference intervals supplied above were not validated at [facility]. Results from pediatric patients should be interpreted [...] Laboratory if there are any questions. Chloride 96(L) 98 - 107 mmol/L CERNER MILLENNIUM CO2 25 22 - 31 mmol/L CERNER MILLENNIUM Anion Gap 12 5 - 15 mmol/L CERNER MILLENNIUM Calcium 9.4 8.5 - 10.5 mg/dL CERNER MILLENNIUM Total Protein 7.2 6.4 - 8.3 gm/dL CERNER MILLENNIUM Albumin 3.7 3.2 - 5.2 gm/dL CERNER MILLENNIUM AST 24 0 - 39 unit/L CERNER MILLENNIUM ALT 38 0 - 55 unit/L CERNER MILLENNIUM Alk Phos 78 40 - 120 unit/L CERNER MILLENNIUM Total Bilirubin 0.1(L) 0.2 - 1.3 mg/dL CERNER MILLENNIUM Bili, [...] the following links into your internet browser. http://www.nkdep.nih.gov/lab-evaluation.shtml http://www.kidney.org/professionals/ Blood specimen (specimen) 06/06/2013 4:27 PM EDT 06/06/2013 4:33 PM EDT Narrative Resulting Agency Comment Spec In Lab Subha Ross MD CHEMISTRY ORDERABLES Performing Organization Address [facility] de Phone Number CERNER RAENNIUM * (ABNORMAL) CBC (with Diff) (06/06/2013 4:27 PM EDT) WBC 9.8 4.0 - 10.0 x10(3)/mcL CERNER MILLENNIUM RBC 4.68 4.63 - 6.08 x10(6)/mcL CERNER MILLENNIUM Hemoglobin 13.7 13.7 - 17.5 gm/dL CERNER MILLENNIUM Hematocrit 39.6(L) 40.0 - 51.0 % CERNER MILLENNIUM MCV 84.6 79.0 - 92.0 fL CERNER MILLENNIUM MCH 29.3 25.6 - 32.2 pg CERNER MILLENNIUM MCHC 34.6 32.0 - 36.5 gm/dL CERNER MILLENNIUM Platelets 243 145 - 370 x10(3)/mcL CERNER MILLENNIUM RDWSD 38.1 35.0 - 46.0 fL CERNER MILLENNIUM RDWCV 12.5 10.9 - 14.4 % CERNER MILLENNIUM MPV 11.7 9.0 - 12.0 fL CERNER MILLENNIUM Blood specimen (specimen) 06/06/2013 4:27 PM EDT 06/06/2013 4:33 PM EDT Narrative Resulting Agency Comment Spec In Lab Subha Ross MD HEMATOLOGY ORDERABLE S Performing Organization Address [facility] de Phone Number RANDY KNAPPENNIUM * TSH (06/06/2013 4:27 PM EDT) TSH 2.15 0.27 - 4.20 mcIU/mL CERNER MILLENNIUM Blood specimen (specimen) 06/06/2013 4:27 PM EDT 06/06/2013 4:33 PM EDT Narrative Resulting Agency Comment Spec In Lab Subha Ross MD CHEMISTRY ORDERABLES [facility] documented in this encounter Visit Diagnoses Diagnosis Chronic hepatitis C Chronic hepatitis C without mention of hepatic coma Fatigue Other malaise and fatigue documented in this encounter Care Teams Chair Frame Builder Relationship Specialty Start Date End Date Ashley Calixto MD [address] [place] [address] PCP - General 12/21/11 12/10/14 documented as of this encounter
--- OUTSIDE RECORDS SUMMARY | 2023-09-07 12:25 | XMS_ITS | Encounter Summary ---
Author Organization [facility] [place] [address] Care Team Providers Care Inside Account Representative Name Role Phone Ashley Calixto MD Primary Care Provider [phone] Reason for Visit * Reason Onset Date Comments Follow-up 07/30/2013 Encounter Details Date Type Department Care Team (Late st Contact Info) Description 07/30/2013 Telephone [place] [address] Lj Braden MD [facility] [address] [place] [address] Follow-up Social History Tobacco Use Types Packs/Day Years [...] encounter Miscellaneous Notes * Telephone Encounter - Yajaira Dyer - 07/30/2013 9:42 AM EDT LM#1, per Meghana, to set up another appointment for this patient with Dr. Braden. Last seen in Mar 2013. Meghana has ordered new xrays. documented in this encounter Plan of Treatment Not on file documented as of this encounter Visit Diagnoses Not on filedocumented in this encounter Care Teams Inside Account Representative Relationship Specialty Start Date End Date Ashley Calixto MD [address] [place] [address] PCP - General 12/21/11 12/10/14 documented as of this encounter
--- OUTSIDE RECORDS SUMMARY | 2023-09-07 12:25 | XMS_ITS | Encounter Summary ---
Author Organization [facility] [place] [address] Care Team Providers Care Central Supply Supervisor Name Role Phone Ashley Calixto MD Primary Care Provider [phone] Reason for Visit * Reason Comments Follow-up Encounter Details Date Type Department Care Team (Late st Contact Info) Description 05/24/2012 10:00 AM EDT [place] [address] Patience Whitman APRN [facility] [place] [address] Hepatitis C (Primary Dx); Rash Discharge Disposition: Home Social History Tobacco Use [...] Sign Reading Time Taken Comments Blood Pressure 149/78 05/24/2012 10:03 AM EDT Pulse 70 05/24/2012 10:03 AM EDT Temperature - - Respiratory Rate - - Oxygen Saturation - - Inhaled Oxygen Concentration - - Weight 134.3 kg (296 lb) 05/24/2012 10:03 AM EDT Height 180.3 cm (5' 11) 05/24/2012 10:03 AM EDT Body Mass Index 41.28 05/24/2012 10:03 AM EDT documented in this encounter Progress Notes * Patience Whitman, PRINTER'S ASSISTANT - 05/24/2012 10:55 AM EDT Subjective: Patient ID: Zack Langley is a 41 y.o. male. GI Problem The primary symptoms include rash (hyperpigmented lesions with erythematous base on BLE). Primary symptoms do not include fever, fatigue, abdominal pain, nausea, vomiting, diarrhea or arthralgias. The illness does not include chills or constipation. Mr. Langley is a pleasant 41 year old white male who was seen today at [facility] in follow-up for hepatitis C. He was only recently told that he had hepatitis C, but he tells me today that apparently he tested positive in 2007. He has risk factors for HCV dating back to to 1986 when hestarted using intranasal drugs. 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 He had 2 tattoos placed in [facility] in 1989 then in 1999. He has [...] gained 16 lbs since his last visit. pyridoxine (VITAMIN B6) 50 mg tablet; Triamcinolone Acetonide-L.S.B. 0.1 % Oint; cetirizine (ZYRTEC) 10 mg tablet; fluticasone (FLOVENT) 220 mcg/actuation inhaler; pravastatin (PRAVACHOL) 20 mg tablet; buprenorphine-naloxone (SUBOXONE) 8-2 mg Subl; fluvoxamine (LUVOX) 100 mg tablet; traZODone (DESYREL) 50 mg tablet; FLUoxetine (PROZAC) 10 mg capsule; hydrOXYzine (ATARAX) 50 mg tablet; doxycycline(VIBRAMYCIN) 100 mg capsule DISCONTD: ipratropium-albuterol (DUONEB) 0.5 mg-3 mg(2.5 mg base)/3 mL nebulizer solution; DISCONTD: nicotine (NICODERM CQ) 21 mg/24 hr; metFORMIN (GLUCOPHAGE) 500 mg tablet No Known Allergies Outside Labs 09/05/11: HCV genotype 2 Viral [...] is evaluated for the final diagnosis. CR-0 Review of Systems Constitutional: Negative for fever, chills, diaphoresis, appetite change and fatigue. Respiratory: Positive for shortness of breath. Negative for cough, chest tightness and wheezing. Cardiovascular: Positive for leg swelling. Negative for chest pain and palpitations. Gastrointestinal: Negative for nausea, vomiting, abdominal pain, diarrhea, constipation, blood in stool and abdominal distention. Genitourinary: Negative for hematuria. Musculoskeletal: Positive for joint swelling (left knee s/p injury). Negative for arthralgias. Skin: Positive for rash (hyperpigmented lesions with erythematous base on BLE). Negative for color change. Neurological: Negative for dizziness, tremors, syncope, weakness and light-headedness. Hematological: Negative for adenopathy. Does not bruise/bleed easily. Psychiatric/Behavioral: Negative for confusion and dysphoric mood. Objective: Physical Exam Constitutional: He is oriented to person, place, and time. He appears well- developed and well-nourished. Body mass index is 41.28 kg/(m^2). Class III obesity HENT: Head: Normocephalic and atraumatic. Eyes: Pupils are equal, round, and reactive to light. No scleral icterus. Neurological: He is alert and oriented to person, place, and time. Skin: Skin is warm and dry. Rash (diffuse rash which appear ulcerated) noted. Toenails thickened, yellowed. Soles of feet with thick, cracking yellowed skin Psychiatric: He has a normal mood and affect. His behavior is normal. Assessment and Plan: Mr. Langley is a pleasant 41 year old white male seen in follow-up for hepatitis C, genotype 2, stage 0-1 fibrosis. He has risk factors for hepatitis C dating back 20-25 years. He has been clean since February 2011 at which time he was started on suboxone. 1. Rash of unclear etiology. Dermatology has suggested that the rash may be due to hepatitis C. Thebiopsies are not consistent with hepatitis C related cutaneous changes, although this cannot be excluded entirely. The rash started the same time he was started on Luvox and Suboxone. At this time wecannot treat him with ribavirin as his is 5 months (ribavirin has significant teratogenicity). It would be reasonable to trial him off of his Luvox for a minimum of 2 months to see if this has any effect on rash. If not, will consider transitioning him off suboxone and onto Methadone.He was amenable to this plan. He will contact provider and discuss alternatives to Luvox. 2. Hepatitis C, genotype 2, stage 0-1. Because he has minimal fibrosis (rash aside), it would be inpatient's best interest to await the new non-Interferon HCV regimens which are expected to become available for genotype 2 within the next year. These new medications are showing significantly improved efficacy, shorter duration of treatment and significantly fewer side effects. However, if the rash has not resolved with eliminating medications (first Luvox, then suboxone), itwould be reasonable to initiate HCV treatment in September after his has delivered the baby. 3. Class III obesity. He has changed his diet but despite this has gained 16 lbs. He is not able toexercise to pain in feet and painful lesions. I have encouraged him to get as much physical activity as possible. He has a referral to podiatry pending. 4. Hepatitis A and B vaccine series. He tells me he is receiving series through his PCP. All of his questions were answered. He verbalized understanding and agreement to the plan of care. I will plan to see him back in 2 months. documented in this encounter Plan of Treatment Not on file documented as of this encounter Visit Diagnoses Diagnosis Hepatitis C- Primary Unspecified viral hepatitis C without hepatic coma Rash Rash and other nonspecific skin eruption documented in this encounter Care Teams Central Supply Supervisor Relationship Specialty Start Date End Date Ashley Calixto MD [address] [place] [address] PCP - General 12/21/11 12/10/14 documented as of this encounter
--- OUTSIDE RECORDS SUMMARY | 2023-09-07 12:25 | XMS_ITS | Encounter Summary ---
Author Organization [facility] [place] [address] Care Team Providers Care Dramatic Reader Name Role Phone Ashley Calixto MD Primary Care Provider Reason for Visit * Reason Comments Follow-up Encounter Details Date Type Department Care Team (Late st Contact Info) Description 06/22/2012 3:05 PM EDT Follow-Up Dermatology at [facility] [address] [place] [address] Geri Styles MD [facility] DR LAKSHMI [place] [address] Rash (Primary Dx) Discharge Disposition: Home Social History Tobacco Use Types Packs/Day Years Used Date Smoking Tobacco: Every Day Cigarettes 1 Comments:working on quitting ; currently down to 3/4 ppd Alcohol Use Standard Drinks/Week Comments Yes 0 (1 standard drink = 0.6 oz pur e alcohol) Not drinking at this time. Sex and Gender Information Value Date Recorded Sex Assigned at Not on file Gender Identity Not on file Sexual Orientation Not on file documented as of this encounter Progress Notes * Ivon Higuera MD - 07/05/2012 9:55 AM EDT Provider IVON HIGUERA MD I saw and evaluated the patient. I have reviewed the patient's history during the visit and I agreewith details as written. My physical examination confirms Dr. Styles's findings. The assessment and plan were formulated in discussion with me at the time of visit and I agree with them as documented. IVON HIGUERA MD Section of Dermatology * Geri Styles MD - 06/22/2012 3:09 PM EDT DERMATOLOGY - ESTABLISHED PATIENT FOLLOW-UP Date of service: 06/22/2012 Zack Langley : 1970 Dermatology Resident Note: Geri Styles MD Chief Problem: Rash Mr. Zack Langley is a 41 y.o. male. This is an established patient, last seen by me on 10/28/11. HPI: Mr. Langley presents for follow-up of a rash. It is mostly unchanged from when I saw him last. He was told by his PCP to discontinue Triamcinolone due to its interactions Isoniazid, which he has now completed 8.5 months of for treatment of latent TB. He was also treated for scabies by his PCP. He saw Dr. Moore who did not think light treatments would be of help, and he was prescribed pimozide (orap) to take 1 mg BID. However, when the patient realized this was a psych medication, he did not understand the rationale for use in dermatology, so he therefore has not yet taken the medication. Theonly thing that has helped recently is a course of Augmentin, which he is still on, for an ear infection. It seemed to help symptoms in his chest as well as prevent new skin lesions from coming up. He wonders if his rash could be due to mold that he was exposed to at his past job or lyme disease from tick bites when this first started. He also wonders if there could be worms in some of the lesions as he sees small black strands in many of his lesions. He is overall not extremely pruritic but rather the skin lesions are painful. His tentative plan for hepatitis C treatment would be late summer/early fall after his has their baby. Skin History: Past biopsies reviewed from OSH: Sparse perivacsular dermatitis with epidermal hyperplasia and ulceration, consistent with LSC Epidermal hyperplasia with hyperkeratosis and erythrocyte extravasation Biopsy from 09/2011: Skin, left inner lateral knee, punch biopsy: Excoriation and crust with acute inflammation with scattered eosinophils (see Comment). ---Comment--- The findings are consistent with the clinical history of excoriation. An etiology for the lesion is not evident in these slides. The eosinophils raise the possiblity of a hypersensitivity component. Folliculitis and PLEVA are NOT identified. Transepidermal elimination of collagen is NOT identified to favor a perforating disorder in this biopsy. Biopsy from 03/2012: A - Skin, upper abdomen, shave biopsy: Lentiginous compound dysplastic nevus with mild atypia, congenital features, and associated dermal fibrosis suggestive of scar, transected at a peripheral margin and at the deep margin. See Comment. B - Skin, left upper abdomen, shave biopsy: Nonspecific ulcer with impetiginized serum crust; numerous step levels reviewed. See Comment. ---Comment--- A - The fibrosis could represent [...] diagnosis. B - The findings are consistent with excoriation. An etiology for the ulcer is not apparent in the specimen. A rare eosinophil is noted and suggests the possibility of a hypersensitivity reaction. Folliculitis and PLEVA are not seen. Medical History: Patient Active Problem List Diagnoses Code ??? Knee pain 719.46 ??? Depression 311 ??? Hepatitis C 070.70 ??? Hyperlipidemia 272.4 ??? Diabetes mellitus 250.00 ??? 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 pyridoxine (VITAMIN B6) 50 mg tablet Take 50 mg by mouth daily. ??? fluticasone (FLOVENT) 220 mcg/actuation inhaler Inhale 1 puff into the lungs 2 times daily as needed. ??? pravastatin (PRAVACHOL) 20 mg tablet Take 20 mg by mouth daily. ??? buprenorphine-naloxone (SUBOXONE) 8-[address] 2 tablets under the tongue daily. ??? fluvoxamine (LUVOX) 100 mg tablet Take 100 mg by mouth 2 times daily. ??? cetirizine (ZYRTEC) 10 mg tablet Take 1 tablet by mouth daily. 60 tablet 5 ??? DISCONTD: Triamcinolone Acetonide-L.S.B. 0.1 % Oint Use to skin lesions 2-3 times daily as needed 80 g 5 ??? DISCONTD: FLUoxetine (PROZAC) 10 mg capsule Take 10 mg by mouth daily. ??? DISCONTD: hydrOXYzine (ATARAX) 50 mg tablet Take 50 mg by mouth 3 times daily as needed. ??? DISCONTD: doxycycline (VIBRAMYCIN) 100 mg capsule Take 1 capsule by mouth 2 times daily. Take with food, avoid calcium within 1 hour of taking, may cause sunburn 60 capsule 2 ??? DISCONTD: metFORMIN (GLUCOPHAGE) 500 mg tablet Take 500 mg by mouth 2 times daily (with meals). ??? DISCONTD: traZODone (DESYREL) 50 mg tablet Take 50 mg by mouth nightly. 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 - Skin: As per HPI; no other skin concerns. Examination: - Constitutional: Patient was alert, well-appearing and in no noticeable distress. A total body skin exam was performed. This includes examination of the skin of the face, ears, neck, chest, axillae, left and right upper and lower extremities, hands, feet, abdomen, and back. Genitalia were not examined. Specific skin findings: 1. Multiple ulcerated papules and plaques, some linear, many with overlying heme crust Diagnosis/Assessment/Treatment Plan: 1. Rash: provided reassurance that with examination and biopsy there is no evidence for infection or infestation, and we discussed that this would not be typical of lyme disease or hypersensitivity to a mold that he is no longer exposed to. At this point, our leading diagnosis is skin dysesthesia with secondary change possibly related to underlying HCV, and our hope is that he may improve with hepatitis treatment planned for late summer/early fall. As Dr. Moore did not believe light treatmentswere appropriate, we discussed Orap in more detail with the patient. Counseled that often we use psychiatric medications for other uses, such as to help with the sensation in the skin caused by nerves (pain, itch, etc). Reassured that he has not been diagnosed with Tourette's as he had thought. We did discuss significant side effects with pimozide including extrapyramidal side effects. Therefore,we will start the dosing slowly, at 1 mg per day for the first week, and work up to 4-6 mg per day if tolerated. Discussed that if he experiences stiffness, rigidity, or other neurologic symptoms, heshould stop the medication immediately and call. Also discussed that Sarna lotion may be soothing to the skin, and he can use this multiple times a day without fear of side effects. 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 Follow-up: RTC in 1 month. Will f/u by phone in 1 week and increase to 1 mg BID if tolerated. Instructed to call for questions or concerns. Geri Styles MD Resident in Dermatology [facility] Patient seen and evaluated with staff titrator: Ivon Higuera MD Section of Dermatology [facility] documented in this encounter Plan of Treatment Not on file documented as of this encounter Visit Diagnoses Diagnosis Rash- Primary Rash and other nonspecific skin eruption documented in this encounter Care Teams Dramatic Reader Relationship Specialty Start Date End Date Ashley Calixto MD [address] [place] [address] PCP - General 12/21/11 12/10/14 documented as of this encounter
--- OUTSIDE RECORDS SUMMARY | 2023-09-07 12:25 | XMS_ITS | Encounter Summary ---
Author Organization [facility] [place] [address] Care Team Providers Care Punch Machine Hand Name Role Phone Ashley Calixto MD Primary Care Provider [phone] Encounter Details Date Type Department Care Team (Latest Contact Info) Description 06/27/2012 4:00 PM EDT Ancillary Appointment Dermatology at [address] [address] Geri Styles MD [facility] DR LAK[address]MI [place] [address] Rash (Primary Dx) Social History Tobacco Use Types [...] of this encounter Progress Notes * Marcelina Berg MD - 06/28/2012 2:45 PM EDT I was the supervising physician working with dermatology resident Dr. Geri Styles in the dermatology clinic during this patient visit. The level of Resident supervision for this patient visit was indirect supervision with direct supervision immediately available. (definition: [facility] Policy Statement on Graduate Medical Education, Supervision of Graduate Medical Trainees) I was immediately available to Dr. Styles for questions and discussion regarding this visit. I have reviewed her encounter note details and level of service. * Geri Styles MD - 06/26/2012 8:32 PM EDT DERMATOLOGY [facility] NOTE 06/26/2012 Zack Mathis Shivam [id number] Geri Styles MD Chief Resident in Dermatology HPI: 41 year old man with diffuse rash consisting of ulcerated plaques worst on arms and legs present since March 2011. He complains of pain rather than pruritus. He has had many theories of the trigger including: chemical exposures at work (no longer exposed to) such as methylene chloride, exposure to molds at work (no longer exposed), Lyme disease as he had tick bites before his symptoms began, and Infestation of worms. Denies picking at the lesions. Previous treatments: topical and IL steroids, oral antibiotics (doxycycline, Augmentin), oral antihistamines, topical antifungals, prednisone, referred to Dr. Moore for nbUVB however he thought thiswould be of limited benefit and recommended pimozide (patient currently taking x 1 week), scabies treatments Past biopsies: 03/2012: Skin, left upper abdomen, shave biopsy: Nonspecific ulcer with impetiginized serum crust; numerous step levels reviewed. The findings are consistent with excoriation. An etiology for the ulcer is notapparent in the specimen. A rare eosinophil is noted and suggests the possibility of a hypersensitivity reaction. Folliculitis and PLEVA are not seen. Biopsy from 09/2011: Skin, left inner lateral knee, punch biopsy: Excoriation and crust with acute inflammation with scattered eosinophils. The findings are consistent with the clinical history of excoriation. An etiology for the lesion is not evident in these slides. The eosinophils raise the possiblity of a hypersensitivity component. Folliculitis and PLEVA are NOT identified. Transepidermal elimination of collagen is NOT identified to favor a perforating disorder in this biopsy. Past biopsy reviewed from OSH 2011: Sparse perivacsular dermatitis with epidermal hyperplasia and ulceration, consistent with LSC. Epidermal hyperplasia with hyperkeratosis and erythrocyte extravasation PMH: chronic hepatitis C (treatment planned for September 2012), latent TB (recently completed 8.5 months of isoniazid), depression/anxiety, hyperlipidemia Pertinent Labs: 03/2012: WBC 7.9, Hgb 13.8, Plt 172, Na 139, K 4.4, CO2 102, Cr 0.87, BUN 9, Bili 0.1, Alk Phos 101, ALT 49 Meds: pyridoxine, fluticasone, pravastatin, buprenorphine-naloxone, fluvoxamine, cetirizine, pimozide 1 mg daily (recently added) All: NKDA Reason for presentation: Treatment Treatment and Workup: ?? nbUVB - could come to [facility] ?? Pimozide or other (seroquel, zyprexa, etc) ?? Consult with primary provider and/or psychiatry for management of medications Geri Styles MD PGY-3 documented in this encounter Plan of Treatment Not on file documented as of this encounter Visit Diagnoses Diagnosis Rash- Primary Rash and other nonspecific skin eruption documented in this encounter Care Teams Punch Machine Hand Relationship Specialty Start Date End Date Ashley Calixto MD [address] [place] [address] PCP - General 12/21/11 12/10/14 documented as of this encounter
--- OUTSIDE RECORDS SUMMARY | 2023-09-07 12:25 | XMS_ITS | Encounter Summary ---
Author Organization [facility] [place] [address] Care Team Providers Care Lockstitch Topstitcher Name Role Phone Ashley Calixto MD Primary Care Provider Encounter Details Date Type Department Care Team (Late st Contact Info) Description 06/25/2012 Telephone Dermatology at [facility] [address] [place] [address] Geri Styles MD [facility] DR [address]AKSHMI [place] [address] Social History Tobacco Use Types Packs/Day Years [...] encounter Miscellaneous Notes * Telephone Encounter - Omi Self - 06/25/2012 11:15 AM EDT Mr. Langley called to advise that he will be attending [place] [facility] on Monday. Omi Juárez documented in this encounter Plan of Treatment Not on file documented as of this encounter Visit Diagnoses Not on filedocumented in this encounter Care Teams Lockstitch Topstitcher Relationship Specialty Start Date End Date Ashley Calixto MD [facility] [address] [facility] [address] [place] [address] PCP - General 12/21/11 12/10/14 documented as of this encounter
--- OUTSIDE RECORDS SUMMARY | 2023-09-07 12:25 | XMS_ITS | Encounter Summary ---
Author Organization [facility] [place] [address] Care Team Providers Care Exit Booth Agent Name Role Phone Ashley Calixto MD Primary Care Provider [phone] Reason for Visit * Reason Onset Date Comments Bumped Appointment 08/23/2013 Encounter Details Date Type Department Care Team (Late st Contact Info) Description 08/23/2013 Telephone [place] [address] Lj Braden MD [facility] [place] [address] Bumped Appointment Social History Tobacco Use Types Packs/Day Years [...] encounter Miscellaneous Notes * Telephone Encounter - Angie Fonseca - 08/23/2013 2:11 PM EDT Left msg for patient to call and reschedule 09/24 bumped appt documented in this encounter Plan of Treatment Not on file documented as of this encounter Visit Diagnoses Not on filedocumented in this encounter Care Teams Exit Booth Agent Relationship Specialty Start Date End Date Ashley Calixto MD [facility] [address] [facility] [address] [place] [address] PCP - General 12/21/11 12/10/14 documented as of this encounter
--- OUTSIDE RECORDS SUMMARY | 2023-09-07 12:25 | XMS_ITS | Encounter Summary ---
Author Organization [facility] [place] [address] Care Team Providers Care Entry Level Accounting Clerk Name Role Phone Ashley Calixto MD Primary Care Provider [phone] Reason for Visit * Reason Comments Follow-up Encounter Details Date Type Department Care Team (Late st Contact Info) Description 07/27/2012 10:00 AM EDT Follow-[place] [address] Patience Whitman APRN [facility] [place] [address] Chronic hepatitis C (Primary Dx) Discharge Disposition: Home Social History [...] Sign Reading Time Taken Comments Blood Pressure 147/77 07/27/2012 9:56 AM EDT Pulse 87 07/27/2012 9:56 AM EDT Temperature - - Respiratory Rate - - Oxygen Saturation - - Inhaled Oxygen Concentration - - Weight 134.3 kg (296 lb) 07/27/2012 9:56 AM EDT Height 180.3 cm (5' 11) 07/27/2012 9:56 AM EDT Body Mass Index 41.28 07/27/2012 9:56 AM EDT documented in this encounter Progress Notes * Patience Whitman, ELIGIBILITY CONSULTANT - 07/27/2012 10:16 AM EDT Subjective: Patient ID: Zack Langley is a 42 y.o. male. HPI Mr. Langley is a pleasant 41 year old white male who was seen today at [facility] in follow-up for hepatitis C. He was only recently told that he had hepatitis C, but he tells me today that apparently he tested positive in 2007. He has risk factors for HCV dating back to to 1986 when hestarted using intranasal drugs. 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 He had 2 tattoos placed in retirement in 1989 then in 1999. He has [...] sores started to heal within 4 days. fluticasone (FLOVENT) 220 mcg/actuation inhaler; pravastatin (PRAVACHOL) 20 mg tablet; buprenorphine-naloxone (SUBOXONE) 8-2 mg Subl; fluvoxamine (LUVOX) 100 mg tablet; DISCONTD: pyridoxine (VITAMIN B6) 50 mg tablet No Known Allergies Outside Labs [...] final diagnosis. CR-0 Review of Systems Constitutional: Positive for diaphoresis (night sweats resolved since discontinuing Isoniazid). Negative for fever, chills, fatigue (Improved since discontinuing medication) and unexpected weight change. Respiratory: Positive for cough (Coughing - green sputum - small amt), shortness of breath (Improved since stopping Augmentin) and wheezing. Chest infection - has had 2 rounds of Augmentin. Stopped 2 weeks ago Cardiovascular: Positive for leg swelling (R>L). Negative for chest pain and palpitations. Gastrointestinal: Positive for abdominal pain (flank pain - attributed to fluid in abd), constipation, blood in stool (Black, tarry stools x 8 weeks ago. Stools now normal) and abdominal distention (abdomen filled with fluid x 3-4 months ago. Fluid improving.). Negative for nausea, vomiting and diarrhea. Genitourinary: Negative for hematuria. Dark urine x 3 months. This has improved since discontinuing Isoniazid Musculoskeletal: Positive for back pain (Back pain improved now), joint swelling (Improved with discontinuing Isoniazid) and arthralgias (Significant arthralgias now resolved since discontinuing Isoniazid). Skin: Positive for rash. Negative for color change. Open sores are healing; started to heal 4 days after stopping Isonizid Red rash around chest is returning; got similar rash with URI prior to being on abx. Augmentin helped clear rash Neurological: Negative for syncope. Psychiatric/Behavioral: Positive for sleep disturbance (Can't sleep). Negative for confusion. Objective: Physical Exam Constitutional: He is oriented to person, place, and time. He appears well- developed and well-nourished. HENT: Head: Normocephalic and atraumatic. Eyes: Pupils are equal, round, and reactive to light. No scleral icterus. Neck: Normal range of motion. Neck supple. No thyromegaly present. Cardiovascular: Normal rate, regular rhythm and normal heart sounds. No murmur heard. Pulmonary/Chest: Effort normal. He has wheezes (Intermittent right-sided inspiratory/expiratory wheeze). He has no rales. Abdominal: Soft. Bowel sounds are normal. He exhibits distension. He exhibits no mass. There is tenderness (RUQ). There is no guarding. Exam limited due to body habitus Musculoskeletal: He exhibits edema (Right 2+ pitting edema; Left 1+ pitting edema). Lymphadenopathy: He has no cervical adenopathy. Neurological: He is alert and oriented to person, place, and time. No asterixis Skin: Skin is warm and dry. Rash (Sores now healing. ) noted. There is erythema (Palmar erythema. Spider angiomata on chest). Psychiatric: He has a [...] on suboxone. 1. Rash, due to Isoniazid. Dermatology had suggested that the rash may be due to hepatitis C. The biopsies were not consistent with hepatitis C related cutaneous changes, although this could not be excluded entirely. The Isoniazid was discontinued about 8 weeks ago and within 4 days the sores started to heal. 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 2. Hepatitis C, genotype 2, stage 0-1. Because he has minimal fibrosis (rash aside), it would be inpatient's best interest to await the new non-Interferon HCV regimens which are expected to become available for genotype 2 before the end of this calendar year. These new medications are showing significantly improved efficacy, shorter duration of treatment and significantly fewer side effects. 3. Class III obesity. He had not been able to exercise due to arthralgias and sores on feet. Thingsare now improving and he plans to start exercising. 4. Hepatitis A and B vaccine series. He tells me he is receiving series through his PCP. 5. Wheezing. I have strongly advised smoking cessation. I have asked that he follow-up with PCP as he may require albuterol inhaler. All of his questions were answered. He verbalized understanding and agreement to the plan of care. I will plan to see him back in 3 months. Will obtain labs and CT scan today as his symptoms of abdominal distention/fluid are concerning for ascites and liver failure due to Isoniazid. documented in this encounter Miscellaneous Notes * Addendum Note - Stephane Marshall - 07/27/2012 2:00 PM EDTAddended by: STEPHANE MARSHALL on: 07/27/2012 02:00 PM Modules accepted: Orders documented in this encounter Plan of Treatment Not on file documented as of this encounter Procedures Procedure Name Priority Date/Time Associated Diagnosis Comments DIFFERENTIAL, AUTOMATED Routine 07/27/2012 2:09 PM EDT PROTHROMBIN TIME Routine 07/27/2012 2:09 PM EDT Chronic hepatitis C CBC (WITH DIFF) Routine 07/27/2012 2:09 PM EDT Chronic hepatitis C COMPREHENSIVE METABOLIC PANEL (NON-FASTING) Routine 07/27/2012 2:09 PM EDT Chronic hepatitis C documented in this encounter Results * Differential, Automated (07/27/2012 2:09 PM EDT) Neutrophils % 56.3 34.0 - 71.0 % CERNER MILLENNIUM Neutr Abs (ANC) 4.85 1.50 - 6.30 x10(3)/mcL CERNER MILLENNIUM Lymphocytes % 33.4 19.0 - 53.0 % CERNER MILLENNIUM Lymphocytes Abs 2.9 1.0 - 3.6 x10(3)/mcL CERNER MILLENNIUM Monocytes % 6.2 4.0 - 13.0 % CERNER MILLENNIUM Monocyte Abs 0.5 0.2 - 1.0 x10(3)/mcL CERNER MILLENNIUM Eosinophils % 3.5 0.0 - 7.0 % CERNER MILLENNIUM Eosinophils Abs 0.3 0.0 - 0.5 x10(3)/mcL CERNER MILLENNIUM Basophils % 0.5 0.0 - 2.0 % CERNER MILLENNIUM Basophils [...] Gran Abs 0.01 0.00 - 0.05 x10(3)/mcL CERNER MILLENNIUM Blood specimen (specimen) 07/27/2012 2:09 PM EDT 07/27/2012 2:13 PM EDT Mendez Peralta MD HEMATOLOGY ORDERABL ES Performing Organization Address [facility] Co de Phone Number CERJERE KNAPPENNIUM * Prothrombin Time (07/27/2012 2:09 PM EDT) PT 12.0 12.0 - 15.0 sec CERNER MILLENNIUM Comment: [facility] Transfusion Committee Guidelines: INR less than 2.0, PTT less than OR equal to 43.5 seconds, or Fibrinogen greater than or equal to 100 mg/dl indicate adequate procoagulant activity for hemostasis in patients without underlying bleeding disorders. INR 0.9 0.9 - 1.1 CERNER MILLENNIUM Blood specimen (specimen) 07/27/2012 2:09 PM EDT 07/27/2012 2:13 PM EDT Narrative Resulting Agency Comment Spec In Lab Mendez Peralta MD HEMATOLOGY ORDERABL ES Performing Organization Address [facility] Co de Phone Number CERJERE KNAPPENNIUM * (ABNORMAL) Comprehensive metabolic panel (non-fasting) (07/27/2012 2:09 PM EDT) Glucose Lvl 218(H) 60 - 199 mg/dL CERNER MILLENNIUM Comment:Diabetes: >=200 mg/d L plus symptoms BUN 9(L) 10 - 20 mg/dL CERNER MILLENNIUM Creatinine 0.63(L) 0.80 - 1.50 mg/dL CERNER MILLENNIUM Comment: Please note that the pediatric reference intervals supplied above were not validated at [facility]. Results from pediatric patients should be interpreted in conjunction to the patient's age, height and muscle mass. Sodium 138 135 - 145 mmol/L CERNER MILLENNIUM Potassium 3.8 3.5 - 5.0 mmol/L CERNER MILLENNIUM Comment: Please note: ??Patients with WBC >100,000 may have falsely elevated Potassium levels. ??For accurate Potassium quantification in these patients send serum separator tube (gold top) for subsequent determinations. ??Contact the Clinical Chemistry Laboratory if there are any questions. Chloride 99 98 - 107 mmol/L CERNER MILLENNIUM CO2 28 22 - 31 mmol/L CERNER MILLENNIUM Anion Gap 11 5 - 15 mmol/L CERNER MILLENNIUM Calcium 9.0 8.5 - 10.5 mg/dL CERNER MILLENNIUM Total Protein 7.2 6.4 - 8.3 gm/dL CERNER MILLENNIUM Albumin 3.9 3.2 - 5.2 gm/dL CERNER MILLENNIUM AST 31 0 - 39 unit/L CERNER MILLENNIUM ALT 47 0 - 55 unit/L CERNER MILLENNIUM Alk Phos 82 40 - 120 unit/L CERNER MILLENNIUM Total [...] internet browser. http://www.nkdep.nih.gov/lab-evaluation.shtml http://www.kidney.org/professionals/ Blood specimen (specimen) 07/27/2012 2:09 PM EDT 07/27/2012 2:13 PM EDT Narrative Resulting Agency Comment Spec In Lab Mendez Peralta MD CHEMISTRY ORDERABLE S CERJERE LOVEIUM * (ABNORMAL) CBC (with Diff) (07/27/2012 2:09 PM EDT) WBC 8.6 4.0 - 10.0 x10(3)/mcL CERNER MILLENNIUM RBC 4.61(L) 4.63 - 6.08 x10(6)/mcL CERNER MILLENNIUM Hemoglobin 14.1 13.7 - 17.5 gm/dL CERNER MILLENNIUM Hematocrit 40.1 40.0 - 51.0 % CERNER MILLENNIUM MCV 87.0 79.0 - 92.0 fL CERNER MILLENNIUM MCH 30.6 25.6 - 32.2 pg CERNER MILLENNIUM MCHC 35.2 32.0 - 36.5 gm/dL CERNER MILLENNIUM Platelets 238 145 - 370 x10(3)/mcL CERNER MILLENNIUM RDWSD 40.7 35.0 - 46.0 fL CERNER MILLENNIUM RDWCV 12.7 10.9 - 14.4 % CERNER MILLENNIUM MPV 11.6 9.0 - 12.0 fL CERNER MILLENNIUM Blood specimen (specimen) 07/27/2012 2:09 PM EDT 07/27/2012 2:13 PM EDT Narrative Resulting Agency Comment Spec In Lab Mendez Peralta MD HEMATOLOGY ORDERABL ES RANDY MORALES documented in this encounter Visit Diagnoses Diagnosis Chronic hepatitis C- Primary Chronic hepatitis C without mention of hepatic coma documented in this encounter Care Teams Entry Level Accounting Clerk Relationship Specialty Start Date End Date Ashley Calixto MD [facility] [address] [place] [address] PCP - General 12/21/11 12/10/14 documented as of this encounter
--- OUTSIDE RECORDS SUMMARY | 2023-09-07 12:25 | XMS_ITS | Encounter Summary ---
Author Organization [facility] [place] [address] Care Team Providers Care Fire Prevention Inspector Name Role Phone Ashley Calixto MD Primary Care Provider [phone] Reason for Visit * Reason Comments Left Knee Pain Encounter Details Date Type Department Care Team (Late st Contact Info) Description 10/15/2012 4:15 PM EDT [place] [address] Lj Braden MD [facility] [place] [address] Knee pain (Primary Dx) Discharge Disposition: Home Social History [...] Sign Reading Time Taken Comments Blood Pressure 141/88 10/15/2012 4:13 PM EDT Pulse 104 10/15/2012 4:13 PM EDT Temperature - - Respiratory Rate - - Oxygen Saturation - - Inhaled Oxygen Concentration - - Weight 125.2 kg (276 lb) 10/15/2012 4:13 PM EDT Height 180.3 cm (5' 11) 10/15/2012 4:13 PM EDT Body Mass Index 38.49 10/15/2012 4:13 PM EDT documented in this encounter Progress Notes * Lj Braden MD - 10/15/2012 4:32 PM EDT Mr. 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 He has previously had a partial medial meniscectomy and medial femoral condyle chondroplasty by Dr. Fagan performed approximately a year ago. He has also had two intraarticular steroid injections, the first from which he got three months relief and the second about six weeks relief. He is for another injection as he has had wearing off of the second intraarticular steroid injection. PHYSICAL EXAMINATION: Physical exam demonstrates tenderness along his joint line as well as in the peripatellar region. He has full range of motion and only minimal effusion. DIAGNOSTIC DATA: Review of his previous x-rays best show the mild medial compartment narrowing. I discussed with Mr. Langley that the most important part of his treatment will be weight loss, though he does state he has lost 15 pounds over the last few years. He would like to pursue one final injection and this would be the third one within years, so we have gone ahead and injected his intraarticular space after sterilely prepping the skin and draping it with a sterile fenestrated drape. The skin was anesthetized with 4 mL of 1% lidocaine and then the knee was injected with a combination of 4 mL of 1% lidocaine and 40 mg of Kenalog. He tolerated the injection well. He will plan on following up with Dr. 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 I will be seeing him back on an as-needed basis. documented in this encounter Plan of Treatment Not on file documented as of this encounter Visit Diagnoses Diagnosis Knee pain- Primary Pain in joint, lower leg documented in this encounter Administered Medications Inactive Administered Medications - up to 3 most recent administrations Medication Order MAR Action Action Date Dose Rate Site triamcinolone acetonide (KENALOG-40) injection 40 mg 40 mg, Intra-articular, ONCE, 1 dose, On 10/15/12 at 1645, Routine Given 10/15/2012 4:24 PM EDT 40 mg documented in this encounter Care Teams Fire Prevention Inspector Relationship Specialty Start Date End Date Ashley Calixto MD [address] [place] [address] PCP - General 12/21/11 12/10/14 documented as of this encounter
--- OUTSIDE RECORDS SUMMARY | 2023-09-07 12:25 | XMS_ITS | Encounter Summary ---
Author Organization [facility] [place] [address] Care Team Providers Care Molasses Preparer Name Role Phone Ashley Calixto MD Primary Care Provider [phone] Encounter Details Date Type Department Care Team (Late st Contact Info) Description 07/12/2012 Telephone Dermatology at [facility] [address] [place] [address] Geri Styles MD [facility] DR [place] [address] Social History Tobacco Use Types Packs/Day Years [...] encounter Miscellaneous Notes * Telephone Encounter - Geri Styles MD - 07/12/2012 10:30 AM EDT I called patient to f/u Pimozide treatment. Patient has discontinued it at this time because his skin lesions are resolving. He thinks it may be secondary to discontinuation of INH which he was taking for latent TB. Discussed that this is good news, and we will see him in f/u on July 27. Geri Styles MD PGY-3 documented in this encounter Plan of Treatment Not on file documented as of this encounter Visit Diagnoses Not on filedocumented in this encounter Care Teams Molasses Preparer Relationship Specialty Start Date End Date Ashley Calixto MD [address] [facility] [address] [place] [address] PCP - General 12/21/11 12/10/14 documented as of this encounter
--- OUTSIDE RECORDS SUMMARY | 2023-09-07 12:25 | XMS_ITS | Encounter Summary ---
Author Organization [facility] [place] [address] Care Team Providers Care Drafter Topographical Name Role Phone Ashley Calixto MD Primary Care Provider [phone] Reason for Referral * Consultation (Routine) - Complete-Ref Provider Notified Specialty Diagnoses / Procedures Referred By Casey reyes Referred To Contact Dermatology Diagnoses Pruritus Geri Trevino MD [facility] [address] [place] [address] Lj Moore MD [address] [place] [id number] Referral ID Status Reason Start Date Expiration Date Visits Requested Visits Authorized [id number] Complete-Ref Provider Notified Consult, Test & Treat 04/23/2012 10/20/2012 1 1 Reason for Visit * Reason Comments Dermatitis Encounter Details Date Type Department Care Team (Late st Contact Info) Description 04/23/2012 2:40 PM EST Follow-Up Dermatology at [facility] [address] [place] [id number] Geri Trevino MD [facility] [address] [place] [address] Pruritus (Primary Dx); Neoplasm of unspecified nature of bone, soft tissue, and skin Discharge Disposition: Home Social History Tobacco Use Types Packs/Day Years Used Date Smoking Tobacco: Every Day Cigarettes 03 23 Comments:working on quitting ; currently down to [...] Progress Notes * Marcelina Berg MD - 05/01/2012 9:03 AM EST I directly supervised Dr. Trevino during this office visit. Dr. Trevino presented the history and physical exam to me. I then saw and examined this patient with Dr. Trevino. We reviewed the history and pertinent details and I confirmed the physical findings. I agree with the details of the history and physical exam as documented in Dr. Trevino's note. * Geri Trevino MD - 04/23/2012 3:08 PM EST DERMATOLOGY - ESTABLISHED PATIENT FOLLOW-UP Date of service: 04/23/2012 Kaley Sousa : 1970 Dermatology Resident Note: Geri Trevino MD Chief Problem: Rash Mr. Kaley Sousa is a 41 y.o. male. This is an established patient, last seen by me on 10/28/11. HPI: Mr. Sousa presents for follow-up of a rash. It is mostly unchanged but maybe worse than when I saw him last. The doxycycline did not make a difference in his symptoms. He has many scabbed nodules over his arms, legs, abdomen, and chest. He complains of burning pain as well as pruritis; the pain keeps him awake at night. He tries not to pick at the lesions, but his notices that he does pickthem at night. He has tried many different topical and oral antibiotics which only help slightly. He does have untreated HCV and is planning to have treatment later in the year, after his child is born. His most bothersome lesions are on his left forearm and right leg. Skin History: Past biopsies reviewed from OSH: [...] favor a perforating disorder in this biopsy. Medical History: Patient Active Problem List Diagnoses Code ??? Knee pain 719.46 ??? Depression 311 ??? Hepatitis C 070.70 ??? Hyperlipidemia 272.4 ??? Diabetes mellitus 250.00 Medications: Current Outpatient Prescriptions Medication Sig Dispense Refill ??? ipratropium-albuterol (DUONEB) 0.5 mg-3 mg(2.5 mg base)/3 mL nebulizer solution Take 3 mLs by nebulization 4 times daily. ??? fluticasone (FLOVENT) 220 mcg/actuation inhaler Inhale 1 puff into the lungs 2 times daily. ??? FLUoxetine (PROZAC) 10 mg capsule Take 10 mg by mouth daily. ??? nicotine (NICODERM CQ) 21 mg/[address] 1 patch onto the skin every 24 hours. ??? pravastatin (PRAVACHOL) 20 mg tablet Take 20 mg by mouth daily. ??? hydrOXYzine (ATARAX) 50 mg tablet Take 50 mg by mouth 3 times daily as needed. ??? doxycycline (VIBRAMYCIN) 100 mg capsule Take 1 capsule by mouth 2 times daily. Take with food, avoid calcium within 1 hour of taking, may cause sunburn 60 capsule 2 ??? buprenorphine-naloxone (SUBOXONE) 8-[address] 2 tablets under the tongue daily. ??? metFORMIN (GLUCOPHAGE) 500 mg tablet Take 500 mg by mouth 2 times daily (with meals). ??? fluvoxamine (LUVOX) 100 mg tablet Take 100 mg by mouth 2 times daily. ??? traZODone (DESYREL) 50 mg tablet Take 50 mg by mouth nightly. 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 Specific skin findings: 1. Multiple excoriated erythematous papules and nodules, many with heme crust 2. 4 mm dark brown irregular macule upper mid abdomen with pigment globules on dermoscopy Diagnosis/Assessment/Treatment Plan: 1. Rash: discussed that the highest on the differential is pruritus secondary to underlying Hepatitis, and that there is a chance his skin may improve after he receives treatment for the HCV (planning on this after his baby is born). In the meantime, discussed performing another biopsy to see if any other etiology can be elucidated. For treatment, recommend referral to Dr. Moore in [facility] (closer for patient) to discuss starting nbUVB therapy to help with symptoms. Will continue triamcinolone and add cetirizine as well. Procedure: Skin biopsy. Location: left upper abdomen (B) Discussed indications for procedure and expectations including risks and benefits. Verbal consent obtained. Skin prep with alcohol. Local anesthesia with 1% xylocaine, 1/100,000 epinephrine, 0.1 mEq/mL bicarbonate. A sample of the lesion was removed by shave technique to the level of the dermis andsubmitted to Pathology. Hemostasis obtained (AlCl and/or electrocautery). There were no complications; the pt. tolerated the procedure well. The wound was dressed. Post-procedure expectations, wound care and activity restrictions were reviewed. Follow-up based on pathology results. For symptomatic relief, also discussed a trial of intralesional Kenalog to most bothersome lesions.Patient identified 3: 2 on left forearm, one on right leg. The patient agreed to the procedure after discussing risks/benefits/alternatives. Kenalog 10 mg/mL injected intralesionally, total 0.4 mL. Discussed indication for this procedure and potential side effects including ulceration and skin atrophy. 2. Neoplasm of unknown behavior, mid upper abdomen (A): due to atypical features grossly and on dermoscopy, recommended shave biopsy of lesion to exclude dysplasia or MM. The patient agreed to the procedure after discussing risks/benefits/alternatives. Procedure: Skin biopsy. Location: mid upper abdomen Discussed indications for procedure and expectations including risks and benefits. Verbal consent obtained. Skin prep with alcohol. Local anesthesia with 1% xylocaine, 1/100,000 epinephrine, 0.1 mEq/mL bicarbonate. A sample of the lesion was removed by shave technique to the level of the dermis andsubmitted to Pathology. Hemostasis obtained (AlCl and/or electrocautery). There were no complications; the pt. tolerated the procedure well. The wound was dressed. Post-procedure expectations, wound care and activity restrictions were reviewed. Follow-up based on pathology results. Follow-up: RTC in 2-3 months. Instructed to call for questions or concerns. Geri Trevino MD Resident in Dermatology [facility] Patient seen and evaluated with staff category director: Marcelina Berg MD Section of Dermatology [facility] documented in this encounter Plan of Treatment Scheduled Referrals Name Type Priority Associated Diagnoses Order Schedule Referral to Dermatology Outpatient Referral Routine Pruritus Ordered: 04/23/2012 documented as of this encounter Procedures Procedure Name Priority Date/Time Associated Diagnosis Comments SURGICAL PATHOLOGY REPORT Routine 04/23/2012 6:22 PM EST DIFFERENTIAL, AUTOMATED Routine 04/23/2012 4:28 PM EST CBC (WITH DIFF) Routine 04/23/2012 4:28 PM EST Pruritus COMPREHENSIVE METABOLIC PANEL (NON-FASTING) Routine 04/23/2012 4:28 PM EST Pruritus SPECIMEN TO PATHOLOGY (NON-OR) Routine 04/23/2012 4:17 PM EST Neoplasm of unspecified nature of bone, soft tissue, and skin documented in this encounter Results * Surgical Pathology Report (04/23/2012 6:22 PM EST) Surgical Pathology Report ? [facility] ? Provider: ?? GERI TREVINO ? Pt. Name: ?? MERRY KALEY Mathis ? Acc #: ?[id number] ? Pt. ? Col Date: ?? 04/23/2012 ? /Sex: ?1970,(41 years),Male ? Rec Date: ?? 04/23/2012 ? LOC: ?[facility] ? SURGICAL PATHOLOGY ? ---Pathologic Diagnosis--- ? A - Skin, upper abdomen, shave biopsy: ?Lentiginous compound dysplastic nevus with mild atypia, congenital ? features, and associated dermal fibrosis suggestive of scar, transected at ? a peripheral margin and at the deep margin. ??See Comment. ? B - Skin, left upper abdomen, shave biopsy: ?Nonspecific ulcer with impetiginized serum crust; numerous step levels ? reviewed. ??See Comment. ? CR-0 ? 04/24/12 ? VMS ? 04/26/12 Verified by: ? Laron Philippe MD ? Dermatopathologist ? (Electronic Signature) ? The attending pathologist whose signature appears on this report has ? reviewed all diagnostic slides and has edited the gross and/or ? microscopic portion of the report in rendering the final pathologic ? diagnosis. ? ---Comment--- ? A - The fibrosis could represent prior trauma or treatment at this site. ? Clinical correlation is recommended. ??If there is a previous specimen from ? this site, we would be happy to review it and correlate it if it is ? submitted. ??If the lesion recurs, additional sampling may be considered. ? Drs. Ponce and Rashaad concur with the diagnosis. ? B - The findings are consistent with excoriation. ??An etiology for the ? ulcer is not apparent in the specimen. ??A rare eosinophil is noted and ? suggests the possibility of a hypersensitivity reaction. ??Folliculitis and ? PLEVA are not seen. ? ---Microscopic Description--- ? Slides reviewed, microscopic description not recorded. ? ---Gross Description--- ? A - Labeled/Fixative: A Mid upper abdomen, formalin. ? Qty/Size/Weight: ?Single shave, 0.9 x 0.6 x 0.1 cm, hodge skin ? with a 0.4-cm brown macule. ? Sections/Processing: ??Inked. ??Trisected. ??(T1) ? [facility] ? Provider: ?? GERI TREVINO ? Pt. Name: ?? KALEY SOUSA ? Acc #: ?[id number] ? Pt. ? Col Date: ?? 04/23/2012 ? /Sex: ?1970,(41 years),Male ? Rec Date: ?? 04/23/2012 ? LOC: ?[facility] ? SURGICAL PATHOLOGY ? B - Labeled/Fixative: B Left upper abdomen, formalin. ? Qty/Size/Weight: ?Single shave, 1.0 cm, white with a 0.3-cm ? pink crust. ? Sections/Processing: ??Inked. ??Trisected. ??(T1) vms/SNS ? ---Clinical Information--- ? Specimen Submitted: ? A - Skin, upper abdomen, shave (1) ? B - Skin, left upper abdomen, shave (1) ? Clinical History/Diagnosis: ? A - 4-mm irregular brown macule with pigment globules on dermoscopy and ? ahuja hue / dysplastic nevus rule out MM ? B - Patient with long history of excoriated lesions and hepatitis C / ? pruritus with excoriation vs PLEVA vs folliculitis [facility] 04/23/2012 6:22 PM EST Geri Trevino MD PATHOLOGY/CYTOLOGY O RDERABLES [facility] * (ABNORMAL) Differential, Automated (04/23/2012 4:28 PM EST) Neutrophils % 59.7 34.0 - 71.0 % [facility] Neutr Abs (ANC) 4.71 1.50 - 6.30 x10(3)/mc L [facility] Lymphocytes % 32.4 19.0 - 53.0 % [facility] Lymphocytes Abs 2.6 1.0 - 3.6 x10(3)/mc L [facility] Monocytes % 4.3 4.0 - 13.0 % [facility] Monocyte Abs 0.3 0.2 - 1.0 x10(3)/mc L [facility] Eosinophils % 2.4 0.0 - 7.0 % [facility] Eosinophils Abs 0.2 0.0 - 0.5 x10(3)/mc L [facility] Basophils % 0.3 0.0 - 2.0 % [facility] Basophils Abs 0.0 0.0 - 0.2 x10(3)/mc L [facility]ILL[facility] Immature Gran % 0.90(H) 0.00 - 0.66 % [facility]ILL[facility]NI[facility] Comment: Immature granulocytes(IG's)percentage and absolute count will include metamyelocytes, myelocytes, and promyelocytes. Blood smears from CBCs yielding IG's will be scanned manually for concordance. If this scan disagrees with the automated IG or if promyelocytes are noted, a manual differential will be performed. Alexa Gran Abs 0.07(H) 0.00 - 0.05 x10(3)/mc L [facility] Blood specimen (specimen) 04/23/2012 4:28 PM EST 04/23/2012 6:11 PM EST Marcelina Berg MD HEMATOLOGY ORDERABLE S [facility] * (ABNORMAL) Comprehensive metabolic panel (non-fasting) (04/23/2012 4:28 PM EST) Glucose Lvl 128 60 - 199 mg/dL [facility] Comment:Diabetes: >=200 mg/d L plus symptoms BUN 9(L) 10 - 20 mg/dL [facility] Creatinine 0.87 0.80 - 1.50 mg/dL [facility]ILLENNI[facility] Comment: Please note that the pediatric reference intervals supplied above were not validated at [facility]. Results from pediatric patients should be interpreted in conjunction to the patient's age, height and muscle mass. Sodium 139 135 - 145 mmol/L [facility]ILL[facility] Potassium 4.4 3.5 - 5.0 mmol/L [facility]ILLENNI[facility] Comment: Please note: ??Patients with WBC >100,000 may have falsely elevated Potassium levels. ??For accurate Potassium quantification in these patients send serum separator tube (gold top) for subsequent determinations. ??Contact the Clinical Chemistry Laboratory if there are any questions. Chloride 102 98 - 107 mmol/L [facility]ILLENNI[facility] CO2 27 22 - 31 mmol/L [facility]ILLEN[facility] Anion Gap 10 5 - 15 mmol/L [facility]ILLENNI[facility] Calcium 8.7 8.5 - 10.5 mg/dL [facility]ILL[facility] Total Protein 7.3 6.4 - 8.3 gm/dL [facility]ILL[facility] Albumin 3.8 3.2 - 5.2 gm/dL [facility]ILLENNI[facility] AST Not Perf 0 - 39 unit/L [facility]ILL[facility]NI[facility] Comment: Specimen hemolyzed MTF ALT 49 0 - 55 unit/L [facility]ILLEN[facility] Alk Phos 101 40 - 120 unit/L [facility]ILL[facility]NI[facility] Total Bilirubin 0.1(L) 0.2 - 1.3 mg/dL [facility]ILLENNIUM Bili, Direct <0.1 0.0 - 0.3 mg/dL [facility]ILLENNIUM Estimated GFR >60 >=60 [facility] MILLENNIUM Comment: The National Kidney Disease Education Program (NKDEP) has recommended all laboratories report estimated GFR (eGFR) along with plasma creatinine measurements to assist you with recognition of early kidney disease. Caveats: ??Plasma creatinine should be at steady-state (unchanged within the past week). For patients multiply eGFR by 1.2. The MDRD equation was developed using patients between the ages of 18 and 70 years. ?? The MDRD equation has not been validated for patients < 18 years of age and should not be used to assess renal function in the pediatric population. ??The MDRD eGFR equation will also overestimate the true GFR of patients above the age of 70. ??This overestimation is variable but increases with age. At present, NKDEP does NOT recommend using the MDRD equation for drug dosing purposes and pharmacists should continue to use their current dosing methods. In addition, numerical eGFR values greater than 60 ml/min/1.73 square meters should be treated as > 60, and not an exact number due to greater inaccuracies at these higher values. Per NKDEP, they classify normal renal function as any GFR >60ml/min/1.73 square meters; chronic kidney disease when GFR <60, and renal failure when GFR <15. ??This calculation may not be valid for patients with atypical muscle mass (very lean or obese), acute renal failure, and in patients with diabetic kidney disease. References: http://nkdep.nih.gov/resources/NKDEP_Suggestn4Labs_0606_508.pdf http://www.kidney.org/professionals/kls/pdf/faq_gfr.pdf Cinthya K, Francesco NA, Jaleel AK, Yuriy TS, Mary AD, Yashira NAOMI. Relative performance of the MDRD and CKD-EPI equations for estimating glomerular filtration rate among patients with varied clinical presentations. Clin J Am Soc Nephrol;6:1963-72. Blood specimen (specimen) 04/23/2012 4:28 PM EST 04/23/2012 6:10 PM EST Narrative Resulting Agency Comment Spec In Lab Marcelina Berg MD [facility]ABLES [facility] * CBC (with Diff) (04/23/2012 4:28 PM EST) WBC 7.9 4.0 - 10.0 x10(3)/mcL [facility]ILL[facility] RBC 4.69 4.63 - 6.08 x10(6)/mcL [facility]ILL[facility] Hemoglobin 13.8 13.7 - 17.5 gm/dL [facility] MILLENNIUM Hematocrit 41.7 40.0 - 51.0 % [facility] MILLENNIUM MCV 88.9 79.0 - 92.0 fL [facility] MILLENNIUM MCH 29.4 25.6 - 32.2 pg [facility]ER MILLENNIUM MCHC 33.1 32.0 - 36.5 gm/dL [facility]ILLENNI[facility] Platelets 172 145 - 370 x10(3)/mcL CERNER MILLENNIUM RDWSD 41.5 35.0 - 46.0 fL [facility]ER MILLENNIUM RDWCV 13.0 10.9 - 14.4 % [facility] MILLENNIUM MPV 11.3 9.0 - 12.0 fL [facility]ILL[facility] Blood specimen (specimen) 04/23/2012 4:28 PM EST 04/23/2012 6:11 PM EST Narrative Resulting Agency Comment Spec In Lab Marcelina Berg MD HEMATOLOGY ORDERABLE S Performing Organization Address City/[facility]/ZIP Co de Phone Number [employer] [facility] * Specimen to Pathology (NON-OR) (04/23/2012 4:17 PM EST) AP Specimen 04/23/2012 4:17 PM EST 04/23/2012 4:16 PM EST Narrative [facility] - 04/23/2012 4:17 PM EST Specimen requisition ordered. ??Separate Pathology report to follow Marcelina Berg MD PATHOLOGY/CYTOLOGY O RDERABLES Performing Organization Address [facility] Co de Phone Number [facility] documented in this encounter Visit Diagnoses Diagnosis Pruritus- Primary Unspecified pruritic disorder Neoplasm of unspecified nature of bone, soft tissue, and skin documented in this encounter Care Teams Drafter Topographical Relationship Specialty Start Date End Date Ashley Calixto MD [facility] [address] [place] [address] PCP - General 12/21/11 12/10/14 documented as of this encounter
--- OUTSIDE RECORDS SUMMARY | 2023-09-07 12:25 | XMS_ITS | Encounter Summary ---
Author Organization [facility] [place] [place] [address] Care Team Providers Care Videographer Name Role Phone Ashley Calixto MD Primary Care Provider [phone] Reason for Visit * Reason Comments Left Knee Pain knee pain Encounter Details Date Type Department Care Team (Late st Contact Info) Description 04/02/2013 4:15 PM EST Office [place] [address] Lj Braden MD [facility] [place] [address] Knee pain, left (Primary Dx) Discharge Disposition: Home Social [...] Sign Reading Time Taken Comments Blood Pressure 128/67 04/02/2013 4:10 PM EST Pulse 83 04/02/2013 4:10 PM EST Temperature - - Respiratory Rate - - Oxygen Saturation - - Inhaled Oxygen Concentration - - Weight 133.4 kg (294 lb) 04/02/2013 4:10 PM EST Height 180.3 cm (5' 11) 04/02/2013 4:10 PM EST Body Mass Index 41 04/02/2013 4:10 PM EST documented in this encounter Progress Notes * Lj Braden MD - 04/02/2013 4:36 PM EST Zack is a patient well-known to me who I have followed for medial compartment arthrosis. He is a patient who has undergone a previous arthroscopy by Dr. Fagan about 18 months ago for a degenerative tear of his medial meniscus. He has received numerous injections in his knee over the years with two Synvisc injections by Dr. Fagan and three intraarticular steroid injections by myself. He states he got good relief for several months following the last injection, but I have told him that I do not want him to continue to get these injections if at all possible. He continues to state that he has pain, primarily over that medial joint line. Physical exam again demonstrates tenderness along his medial joint line as well as the peripatellar region. He has full range of motion and no significant effusion. Radiographs again were reviewed and do show the mild medial compartment narrowing. ASSESSMENT AND PLAN: Medial compartment arthrosis, right knee. I have told Zack I would be willing to give him one more intraarticular steroid injection into that intraarticular compartment to treat his degenerative disease. Therefore, we again prepped his knee with DuraPrep and then draped it sterilely with a fenestrated drape and injected the intraarticular space with a combination of 4 mL of 1% lidocaine and 40 mg of Kenalog after anesthetizing the skin with 5 mL of 1% lidocaine. He tolerated the procedure and injection well. If he does have any further problems, he will call back and I would be glad to see him, but he should obtain x-rays prior to that visit. He also will continue to remain out of work, which he has been doing so for the past year. documented in this encounter Plan of Treatment Not on file documented as of this encounter Visit Diagnoses Diagnosis Knee pain, left- Primary Pain in joint, lower leg documented in this encounter Administered Medications Inactive Administered Medications - up to 3 most recent administrations Medication Order MAR Action Action Date Dose Rate Site triamcinolone acetonide (KENALOG-40) injection 40 mg 40 mg, Intra-articular, ONCE, 1 dose, On Tu04/02/13 at 1645, Routine Given 04/02/2013 4:28 PM EST 40 mg documented in this encounter Care Teams Videographer Relationship Specialty Start Date End Date Ashley Calixto MD [address] [place] [address] PCP - General 12/21/11 12/10/14 documented as of this encounter
--- OUTSIDE RECORDS SUMMARY | 2023-09-07 12:25 | XMS_ITS | Encounter Summary ---
Author Organization [facility] [place] [address] Care Team Providers Care Fuel Quality Tech Name Role Phone Ashley Calixto MD Primary Care Provider [phone] Reason for Visit * Reason Comments Illness Encounter Details Date Type Department Care Team (Late st Contact Info) Description 11/27/2012 1:30 PM EDT Office [place] [address] Michelle Cobian MD [facility] [place] [address] LTBI (latent tuberculosis infection) (Primary Dx) Discharge Disposition: Home Social History [...] Sign Reading Time Taken Comments Blood Pressure 117/77 11/27/2012 1:44 PM EDT Pulse 78 11/27/2012 1:44 PM EDT Temperature 36.5 ??C (97.7 ??F) 11/27/2012 1:44 PM ED T Respiratory Rate 20 11/27/2012 1:44 PM EDT Oxygen Saturation - - Inhaled Oxygen Concentration - - Weight - - Height - - Body Mass Index - - documented in this encounter Progress Notes * Michelle Cobian MD - 11/27/2012 1:52 PM EDT Latent TB Infection ID CLINIC CONSULT CC: Latent TB Infection HPI: Zack Langley is a 42 y.o. old male who has had the following history of testing for latent TB infection. He has had at least 5 TSTs done on alf/fdc intake, all of which have been at [facility]. 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 They did a QFTG which was reportedly positive. He was ruled out for TB via sputa, and was referred to outpatient setting for treatment of latent TB infection. He started INH and had marked exacerbation of his skin lesions (thought due to hep C), but continued to take it. He also said he had neuropsych effects, and was fatigued so that all together, the 9 months (minus 10 days through July 2012) he was on it were the worse of his life. I note that a 07-27-2012 QFTG was 0.56- just barely positive. 11-12 CHEST ROUTINE PA+LAT Findings Lungs are well expanded without focal consolidation, cavitary lesion, vascular congestion, or pleural effusion. Punctate densities in the right lung base represent vessels en face. No pneumothorax. Cardiomediastinal contour within normal limits. Normal bony thorax. Impression No evidence for tuberculosis. His/her risk factors for LTBI include: High TB incidence country - no Close contact with a case - none known Healthcare work - none Snf or homeless longterm experience - alf up to a year 5 times International travel - none ROS is negative for any symptoms of active TB including cough, hemoptysis, unintentional weight loss, shortness of breath or chest pain. PMH is significant for hep C. He is planning to start therapy in gi clinic soon. Reports HIV tests have been negative. SOC: The patient has history of alcohol abuse but now only drinks on special occasions. He has beennarcotic addicted , including use of IDU, but now on suboxone. He has been a heavy smoker and is now weaned down to 18 cigarettes a day. He has a girlfriend, and a 3 month old, 2 year old and 18 yo. 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 PE Afebrile. The patient is obese, with no cough during our encounter. I find no lymphadenopathy, or stigmata of hepatic disease. The patient-s lungs have expiratory wheeze on right midlung field but are otherwise clear to auscultation. Heart is regular in rate and rhythm with no murmur, rub or gallop. Abd benign. He has 1-2+ FILEMON that he reports is getting worse over last 6 weeks. He has large (2-4cm) macular annual sharply demarcated lesions scattered all over his body, sparing face. These are crusted in some areas, with only one or two with active scab. No surrounding edema suggestive of cellulitis. Non fluctuant. Neuro grossly intact. Labs Lab Results Component Value Date WBC 8.6 07/27/2012 RBC 4.61* 07/27/2012 HGB 14.1 07/27/2012 HCT 40.1 07/27/2012 MCV 87.0 07/27/2012 MCH 30.6 07/27/2012 MCHC 35.2 07/27/2012 PLATELET 238 07/27/2012 RDWCV 12.7 07/27/2012 Lab Results Component Value Date NA 138 07/27/2012 K 3.8 07/27/2012 CL 99 07/27/2012 CO2 28 07/27/2012 Lab Results Component Value Date BUN 9* 07/27/2012 CREATININE 0.63* 07/27/2012 Lab Results Component Value Date ALT 47 07/27/2012 AST 31 07/27/2012 ALKPHOS 82 07/27/2012 BILITOT 0.2 07/27/2012 Impression: We discussed the differences between active TB and latent TB infection (LTBI), and that the IGRA atthe cutoff of positive may have been false positive, given his lack of previously positive testing and clear risk factors. But even if true positive, the 9 months minus 10 days that he reports is likely adequate to treat. I told him that there remains some very small risk for active TB, so any unexplained cough illness should be presented to medical attention with this history reported. I have not seen a rash like this associated with INH, but wonder if hep C has played a role (especially since he freely admits it was present before he started INH). Plan: ?? Consider this treated LTBI ?? Patient was advised to contact the clinic with any questions Michelle Cobian MD Infectious Diseases Attending Pager [phone] minutes were spent in this [id number] encounter, during which 30 was spent counseling. documented in this encounter Plan of Treatment Not on file documented as of this encounter Visit Diagnoses Diagnosis LTBI (latent tuberculosis infection)- Primary Nonspecific reaction to tuberculin skin test without active tuberculosis documented in this encounter Care Teams Fuel Quality Tech Relationship Specialty Start Date End Date Ashley Calixto MD [address] [facility] [address] [place] [address] PCP - General 12/21/11 12/10/14 documented as of this encounter
--- OUTSIDE RECORDS SUMMARY | 2023-09-07 12:25 | XMS_ITS | Encounter Summary ---
[place] [address] Care Team Providers Care Mold Engraver Name Role Phone Ashley Calixto MD Primary Care Provider [phone] Encounter Details Date Type Department Care Team (Late st Contact Info) Description 07/30/2013 Orders [place] [address] Meghana Gleason, RN Right knee pain (Primary Dx) Social History Tobacco Use Types [...] as of this encounter Visit Diagnoses Diagnosis Right knee pain- Primary Pain in joint, lower leg documented in this encounter Care Teams Mold Engraver Relationship Specialty Start Date End Date Ashley Calixto MD [address] [place], [place] [id number] PCP - General 12/21/11 12/10/14 documented as of this encounter
--- OUTSIDE RECORDS SUMMARY | 2023-09-07 12:25 | XMS_ITS | Encounter Summary ---
Author Organization [facility] Address [facility] [place] [address] Care Team Providers Care Materials Inspector Name Role Phone Ashley Calixto MD Primary Care Provider [phone] Encounter Details Date Type Department Care Team (Late st Contact Info) Description 10/11/2012 Orders [place] [address] Michelle Cobian MD [facility] [place] [address] LTBI (latent tuberculosis infection) (Primary Dx) Social History Tobacco Use Types [...] as of this encounter Results * XR chest routine PA & lateral (11/12/2012 3:24 PM EDT) Anatomical Region Laterality Modality Chest N/A Radiographic Pamela ging 11/12/2012 3:24 PM EDT Narrative 11/12/2012 3:45 PM EDT Examination CHEST ROUTINE PA+LAT Clinical History LTBI - rulte out active TB Comparison None Technique Two-views of the chest. ?? Findings Lungs are well expanded without focal consolidation, cavitary lesion, vascular congestion, or pleural effusion. Punctate densities in the right lung base represent vessels en face. No pneumothorax. Cardiomediastinal contour within normal limits. Normal bony thorax. ?? Impression No evidence for tuberculosis. Film and interpretation reviewed by the attending Procedure Note Kevin Bonilla MD - 11/12/2012 Examination CHEST ROUTINE PA+LAT Clinical History LTBI - rulte out active TB Comparison None Technique Two-views of the chest. Findings Lungs are well expanded without focal consolidation, cavitary lesion,vascular congestion, or pleural effusion. Punctate densities in the right lung base represent vessels en face. No pneumothorax. Cardiomediastinal contourwithin normal limits. Normal bony thorax. Impression No evidence for tuberculosis. Film and interpretation reviewed by the attending Michelle Cobian MD IMG DX ORDERABLES documented in this encounter Visit Diagnoses Diagnosis LTBI (latent tuberculosis infection)- Primary Nonspecific reaction to tuberculin skin test without active tuberculosis LTBI (latent tuberculosis infection) Nonspecific reaction to tuberculin skin test without active tuberculosis documented in this encounter Care Teams Materials Inspector Relationship Specialty Start Date End Date Ashley Calixto MD [facility] [address] [place] [address] PCP - General 12/21/11 12/10/14 documented as of this encounter
--- OUTSIDE RECORDS SUMMARY | 2023-09-07 12:25 | XMS_ITS | Encounter Summary ---
[place] [address] Care Team Providers Care Dollyman Name Role Phone Ashley Calixto MD Primary Care Provider [phone] Encounter Details Date Type Department Care Team (Latest Contact Info) Description 06/06/2013 3:54 PM EDT - 06/06/2013 11:59 PM EDT Hospital Encounter [place] [address] CLINIC, Ashley Michaels MD [address] [place] [address] Discharge Disposition: Home Social History Tobacco Use [...] on filedocumented in this encounter Care Teams Dollyman Relationship Specialty Start Date End Date Ashley Calixto MD [address] [place] [address] PCP - General 12/21/11 12/10/14 documented as of this encounter
--- OUTSIDE RECORDS SUMMARY | 2023-09-07 12:25 | XMS_ITS | Encounter Summary ---
[place] [address] Care Team Providers Care Agitator Operator Name Role Phone Ashley Calixto MD Primary Care Provider [phone] Encounter Details Date Type Department Care Team (Late st Contact Info) Description 08/14/2013 Telephone [place] [phone] Lu Nicole RN Social History Tobacco Use Types Packs/Day [...] encounter Miscellaneous Notes * Telephone Encounter - Lu Nicole RN - 08/14/2013 11:22 AM EDT [place] sovaldi and ribavirin per phone call from Michael Wilde [phone] [place] [facility], who stated that patient had minimal liver involvement and that it was reasonable to wait for treatment. Will forward to Hayley Whitman NP. documented in this encounter Plan of Treatment Not on file documented as of this encounter Visit Diagnoses Not on filedocumented in this encounter Care Teams Agitator Operator Relationship Specialty Start Date End Date Ashley Calixto MD [facility] [address] [facility] 1 [place] [address] PCP - General 12/21/11 12/10/14 documented as of this encounter
--- OUTSIDE RECORDS SUMMARY | 2023-09-07 12:25 | XMS_ITS | Encounter Summary ---
[place] [address] Care Team Providers Care Hospital Coordinator Name Role Phone Ashley Calixto MD Primary Care Provider [phone] Reason for Visit * Reason Comments Pruritus Encounter Details Date Type Department Care Team (Late st Contact Info) Description 06/11/2012 4:00 PM EDT Office Visit Dermatology [address] [place] [address] [address] [place] [address] Lj Moore MD [address] [facility] [address] [place] [address] Neurodermatitis (Primary Dx) Social History Tobacco Use Types [...] as of this encounter Progress Notes * Lj Moore MD - 06/11/2012 5:14 PM EDT Problem is dermatitis. Zack is a 41-year-old gentleman who for the last 18 months has had pruritic and very painful sores on his arms, legs, and abdomen. He has a four-year history of hepatitis C but was told by his facilities management executive that he has very, very low titers and in fact desires to withhold initiation of treatment for the moment. The patient states that no one else at home has any dermatitis. He has an 18-year-old son and his significant other has no dermatitis. 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 He was seen at [facility] and treated with prednisone, doxycycline without significant improvement. 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 There is no evidence of a vasculitis. One option presented to the patient by Dr. Geri Styles at [facility] was for light treatment for this, and so he is being referred to my practice. However, the patient states that he is unable to tolerate sun exposure/light exposure; it makes him dizzy and almost pass out. The patient is no longer working now due to knee and back injuries. The main issue for the patient is the pain associated with these. They are also somewhat itchy. The patient has a history of depression and anxiety and is on trazodone and fluoxetine. Physical examination today reveals a pleasant 41-year-old who has open excoriations (although the patient denies picking at them) widely over the easily accessible areas over the volar arms and forearms, the extensor thighs and shins, and also on his abdomen. He has complete sparing of his back and the posterior legs. He has tinea unguium present in all 10 toenails of his feet. Assessment and Plan: Neurodermatitis/neurotic excoriations. a. Although the patient states he does not pick at these, apparently his significant other has told Dr. Styles that the patient does pick at them at night. b. The patient denies any insect bites or seeing bugs in his skin. I do think, however, a trial of Orap would be potentially quite beneficial for him, given the clinical appearance of neurodermatitis with hyperpigmentation peripherally around the excoriation and the deep excoriated nature of these. c. Begin Orap 1 mg p.o. b.i.d.; #60 dispensed with one refill. Return to clinic in one month for repeat check. d. We will hold off on utilization of UVB light therapy for this and I think would be probably of limited benefit. Return to clinic in one month for repeat check. COPY: Ashley Calixto M.D. documented in this encounter Plan of Treatment Not on file documented as of this encounter Visit Diagnoses Diagnosis Neurodermatitis- Primary Lichenification and lichen simplex chronicus documented in this encounter Care Teams Hospital Coordinator Relationship Specialty Start Date End Date Ashley Calixto MD [address] [place] [address] [facility] 1 [place] [address] PCP - General 12/21/11 12/10/14 documented as of this encounter
--- OUTSIDE RECORDS SUMMARY | 2023-09-07 12:25 | XMS_ITS | Encounter Summary ---
Author Organization [facility] [place] [address] Care Team Providers Care Residential Coordinator Name Role Phone Ashley Calixto MD Primary Care Provider [phone] Reason for Visit * Reason Onset Date Comments Bumped Appointment 08/27/2013 Encounter Details Date Type Department Care Team (Late st Contact Info) Description 08/27/2013 Telephone [place] [address] Lj Braden MD [facility] [address] [place] [address] Bumped Appointment Social History Tobacco Use Types [...] encounter Miscellaneous Notes * Telephone Encounter - Arlene Kaufman - 08/27/2013 1:50 PM EDT PATIENT RESCHEDULED. * Telephone Encounter - Shanice Romano - 08/27/2013 1:14 PM EDT Called patient LMOM #1 to rescheduled 09/24/[address] Braden. documented in this encounter Plan of Treatment Not on file documented as of this encounter Visit Diagnoses Not on filedocumented in this encounter Care Teams Residential Coordinator Relationship Specialty Start Date End Date Ashley Calixto MD [facility] [address] [facility] [place] [address] PCP - General 12/21/11 12/10/14 documented as of this encounter
--- OUTSIDE RECORDS SUMMARY | 2023-09-07 12:25 | XMS_ITS | Encounter Summary ---
Author Organization [facility] [place] [address] Care Team Providers Care Denture Technician Name Role Phone Ashley Calixto MD Primary Care Provider [phone] Reason for Visit * Reason Comments Follow-up Encounter Details Date Type Department Care Team (Late st Contact Info) Description 07/27/2012 3:30 PM EDT Follow-Up Dermatology at [address] [address] Geri Styles MD [facility] [address] [address] Rash (Primary Dx) Discharge Disposition: Home Social [...] as of this encounter Progress Notes * Gray Brewer III, MD - 07/27/2012 6:41 PM EDT I was the supervising physician working with dermatology resident Dr. Geri Styles in the dermatology clinic during this patient visit. The level of Resident supervision for this patient visit was indirect supervision with direct supervision immediately available. (definition: [facility] Policy Statement on Graduate Medical Education, Supervision of Graduate Medical Trainees) I was immediately available to Dr. Styles for questions and discussion regarding this visit. I have reviewed her encounter note details and level of service. * Geri Styles MD - 07/27/2012 3:26 PM EDT DERMATOLOGY - ESTABLISHED PATIENT FOLLOW-UP Zack aLngley Date of service: 07/27/2012 : 1970 Dermatology Resident Note: Geri Styles MD Chief Problem: Chief Complaint Patient presents with ??? Follow-up Mr. Zack Langley is a 42 y.o. male. This is an established patient, last seen by me on 07/12/2012. HPI: Mr. Langley presents for follow-up of diffuse rash. He is happy to state that he is much better. All of his open sores are healing in. He is quite certain his rash was secondary to isoniazid. Has some scarring but otherwise is happy with his improvement. Medical History: Patient Active Problem List Diagnoses Code ??? Knee pain 719.46 ??? Depression 311 ??? Hepatitis C 070.70 ??? Hyperlipidemia 272.4 ??? Diabetes mellitus 250.00 ??? Neurodermatitis 698.3 ??? Abnormal laboratory test 796.4 ??? Alcohol abuse, in remission 305.03 ??? Narcotic abuse in remission 305.43 Medications: fluticasone (FLOVENT) 220 mcg/actuation inhaler; pravastatin (PRAVACHOL) 20 mg tablet; buprenorphine-naloxone (SUBOXONE) 8-2 mg Subl; fluvoxamine (LUVOX) 100 mg tablet; DISCONTD: pyridoxine (VITAMIN B6) 50 mg tablet iohexol (OMNIPAQUE) 350 mg iodine/mL injection 38,500 mg Allergies: Allergies Allergen Reactions ??? Isoniazid ? Rash... 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 - Skin: As per HPI; no other skin concerns. Examination: - Constitutional: Patient was alert, well-appearing and in no noticeable distress. - Skin: focused exam of arms, legs. Specific skin findings: 1. Healing nodules and ulcerations, diffuse scarring Diagnosis/Assessment/Treatment Plan: 1. Rash: happy that rash is resolving, likely secondary to hypersensitivity to INH. Discussed adamant sun protection for prevention of darkening of scars. Discussed that in the future we could see him to discuss scar revision if desired (re-excision vs laser). Instructed patient to call us if we can be of any further help. RTC PRN. Instructed to call for questions/concerns. Geri Styles MD Resident in Dermatology [facility] Staff blocker and sewer: Gray Brewer MD Section of Dermatology [facility] I performed the above scribed service and agree with the accuracy of the documentation in this encounter. documented in this encounter Plan of Treatment Not on file documented as of this encounter Visit Diagnoses Diagnosis Rash- Primary Rash and other nonspecific skin eruption documented in this encounter Care Teams Denture Technician Relationship Specialty Start Date End Date Ashley Calixto MD [facility] [address] [place] [address] PCP - General 12/21/11 12/10/14 documented as of this encounter
--- OUTSIDE RECORDS SUMMARY | 2023-09-07 12:25 | XMS_ITS | Encounter Summary ---
Author Organization [facility] [place] [address] Care Team Providers Care Field Education Director Name Role Phone Ashley Calixto MD Primary Care Provider [phone] Encounter Details Date Type Department Care Team (Late st Contact Info) Description 08/15/2013 Telephone [place] [address] Patience Whitman GAS APPLIANCE MECHANIC [facility] [place] [address] Social History Tobacco Use Types Packs/Day Years [...] encounter Miscellaneous Notes * Telephone Encounter - Patience Whitman APRN - 08/15/2013 4:20 PM EDT I attempted to call pt by went to voicemail I called and spoke with pt's . I explained that [place] Medicaid is denying coverage of HCV treatment because bx 11/22/11 revealed only minimal scarring stage 0-1. He has gained nearly 30 lbs since hisbx in 2011. Explained that in next 6 months new HCV medications will be available. We could repeat labs and ultrasound in February. At that time we would have more information about [place] Medicaid coverage of treatment regimens. If needed, we could also repeat liver bx as his fibrosis has likely progressed with weight gain due to [place]. She was amenable to waiting until February for f/u appt with labs and ultrasound. documented in this encounter Plan of Treatment Not on file documented as of this encounter Visit Diagnoses Diagnosis Chronic viral hepatitis C- Primary Chronic hepatitis C without mention of hepatic coma documented in this encounter Care Teams Field Education Director Relationship Specialty Start Date End Date Ashley Calixto MD [facility] [address] [place] [address] PCP - General 12/21/11 12/10/14 documented as of this encounter
--- OUTSIDE RECORDS SUMMARY | 2023-09-07 12:25 | XMS_ITS | Encounter Summary ---
Author Organization Formerly [facility] [place] [address] Care Team Providers Care Internal Communications Writer Name Role Phone Ashley Calixto MD Primary Care Provider [phone] Reason for Visit * Reason Comments Left Knee Pain Encounter Details Date Type Department Care Team (Latest Contact Info) Description 09/18/2013 3:15 PM EDT [place] [address] Lj Braden MD [facility] [address] [place] [address] Osteoarthritis of knee (Primary Dx) Discharge Disposition: Home Social History Tobacco Use Types Packs/Day Years Used Date Smoking Tobacco: Every Day Cigarettes 1 25 Smokeless Tobacco: Never Comments:working on quitting ; currently down to [...] Sign Reading Time Taken Comments Blood Pressure 145/74 09/18/2013 3:11 PM EDT Pulse 118 09/18/2013 3:11 PM EDT Temperature - - Respiratory Rate - - Oxygen Saturation - - Inhaled Oxygen Concentration - - Weight 129.4 kg (285 lb 3.2 oz) 09/18/2013 3:11 PM EDT Height 180.3 cm (5' 11) 09/18/2013 3:11 PM EDT Body Mass Index 39.78 09/18/2013 3:11 PM EDT documented in this encounter Progress Notes * Dayton Guzman PA - 09/18/2013 3:52 PM EDT Mr. Langley is a very pleasant 43-year-old gentleman who is here to discuss surgical options for his left knee. In brief, the patient has had multiple intraarticular cortisone injections performed by Dr. Braden along with his primary care physician. The patient states that he has been receiving little to no relief from his subsequent injections. He would like something done surgically and is here to discuss those options. He locates the majority of his pain over the anterior and medial aspect of the left knee. He denies any mechanical symptoms. He does have significant pain with going up and down stairs. He reports that he has been unable to perform activities that he enjoys doing like playing with his kids. He has difficulty sleeping and has not been able to work secondary to his chronic pain. PAST MEDICAL HISTORY: The patient is significant for diabetes. His most recent hemoglobin A1c was 10, we do not have that lab value in our records. He was seen by a physician in [facility]. He also has hepatitis C and history of narcotic abuse in remission as well as alcohol abuse in remission. Remainder reviewed in [facility]. Medications include Suboxone, metformin, aspirin, and pravastatin. ALLERGIES INCLUDE ISONIAZID. SOCIAL HISTORY: The patient is a current everyday smoker. He smokes a pack a day. He states he drinks socially. He denies illicit drug use. REVIEW OF SYSTEMS: The patient specifically denies any fevers, chills, chest pain, shortness of breath, nausea, vomiting, diarrhea, headache, or loss of consciousness. PHYSICAL EXAM: The patient is alert and oriented x3, sitting comfortably on the exam table. He appears to be in no acute distress. Inspection of the patient's left knee reveals no joint effusion. He has very mild medial joint line tenderness, no lateral joint line tenderness. His knee is stable to valgus and varus stress. He has a negative anterior drawer and Phil. He has no tenderness over the patella with mobilization. IMAGING: I reviewed the patient's plain films from today, which show no acute osseous injury or large joint effusion. He has interval progression into the medial compartment osteoarthropathy with left knee in genu varus. ASSESSMENT: This is a 43-year-old gentleman with severe medial compartment degenerative arthropathy with a significant past medical history of uncontrolled diabetes, narcotic abuse, and positive tobacco use. PLAN: I spoke with Mr. Langley regarding his current physical exam findings as well as imaging. I explained to the patient that he in all likelihood will need a total joint replacement; however, based on his most recent hemoglobin A1c as well as current smoking status, he is not a surgical candidate at this time. He will need to discontinue smoking as well as get his hemoglobin A1c below 7.3. The patient states that he is scheduled to have a repeat draw soon and will discuss it with his primary care physician. The patient given a referral to see one of the joint arthroplasty surgeons here in clinic. The patient will discuss management with one of them. All of the patient's questions were solicited and answered. He knows to contact us should he have any further questions or concerns. documented in this encounter Plan of Treatment Not on file documented as of this encounter Visit Diagnoses Diagnosis Osteoarthritis of knee- Primary Osteoarthrosis, unspecified whether generalized or localized, lower leg documented in this encounter Care Teams Internal Communications Writer Relationship Specialty Start Date End Date Ashley Calixto MD [address] [place] [address] PCP - General 12/21/11 12/10/14 documented as of this encounter
--- OUTSIDE RECORDS SUMMARY | 2023-09-07 12:25 | XMS_ITS | Encounter Summary ---
Author Organization [facility] [place] [address] Care Team Providers Care Polisher Brass Name Role Phone Ashley Calixto MD Primary Care Provider [phone] Encounter Details Date Type Department Care Team (Latest Contact Info) Description 07/27/2012 10:45 AM EDT - 07/27/2012 11:59 PM EDT Hospital [place] [id number] Chronic hepatitis C Social History Tobacco Use [...] tablet Take 20 mg by mouth daily. fluticasone (FLOVENT) 220 mcg/actuation inhaler Inhale 1 puff into the lungs 2 times daily as needed. 04/02/2013 buprenorphine-naloxone (SUBOXONE) 8-[address] 2 tablets under the tongue daily. 06/06/2013 fluvoxamine (LUVOX) 100 mg tablet Take 50 mg by mouth daily. 10/15/2012 documented as of this encounter Miscellaneous Notes * Miscellaneous - Provider, Scanning - 08/01/2012 9:13 AM EDT documented in this encounter Plan of Treatment Not on file documented as of this encounter Procedures Procedure Name Priority Date/Time Associated Diagnosis Comments CT ABDOMEN W CONTRAST Routine 07/27/2012 11:31 AM EDT Chronic hepatitis C without mention of hepatic coma documented in this encounter Results * CT abdomen with contrast (07/27/2012 11:31 AM EDT) Anatomical Region Laterality Modality Abdomen Computed Tomogra phy 07/27/2012 11:3 1 AM EDT Narrative 07/27/2012 12:[address] Abdomen With Contrast Clinical History Hepatitis C/abdominal distention/pain ?? ? cirrhosis Comparison Ultrasound performed November 11, 2011. ?? Technique CT of the abdomen and pelvis dual phase obtained following intravenous administration of 110 mL of Omnipaque 350. Findings Lung bases are clear. ??No pericardial or pleural effusions are seen. ??No suspicious pulmonary masses or nodules detected. ??Liver demonstrates normal enhancement without mass lesions with exception of a 5 mm hypodensity, nonenhancing, too small to characterize. ??Caudate to right lobe ratio is normal at 0.56. ??No nodularity is seen to the liver contour. ??Spleen, pancreas, adrenal glands and kidneys are unremarkable. ??No retroperitoneal or mesenteric lymphadenopathy is seen. ??Evaluation of bone windows demonstrates no suspicious osseous lesions. Impression No evidence of cirrhosis by imaging. ??5 mm nonenhancing hypodensity in the posterior aspect of the right lobe, too small to characterize, without aggressive features. Procedure Note Florencio Lopez MD - 07/27/[address] Abdomen With Contrast Clinical History Hepatitis C/abdominal distention/pain ? cirrhosis Comparison Ultrasound performed November 11, 2011. Technique CT of the abdomen and pelvis dual phase obtained following intravenous administration of 110 mL of Omnipaque 350. Findings Lung bases are clear. No pericardial or pleural effusions are seen. No suspicious pulmonary masses or nodules detected. Liver demonstratesnormal enhancement without mass lesions with exception of a 5 mm hypodensity, nonenhancing, too small to characterize. Caudate to right lobe ratio isnormal at 0.56. No nodularity is seen to the liver contour. Spleen, pancreas, adrenal glands and kidneys are unremarkable. No retroperitoneal ormesenteric lymphadenopathy is seen. Evaluation of bone windows demonstrates nosuspicious osseous lesions. Impression No evidence of cirrhosis by imaging. 5 mm nonenhancing hypodensity in the posterior aspect of the right lobe, too small to characterize, without aggressive features. Mendez Peralta MD IMG CT ORDERABLES documented in this encounter Visit Diagnoses Diagnosis Chronic hepatitis C Chronic hepatitis C without mention of hepatic coma documented in this encounter Administered Medications Inactive Administered Medications - up to 3 most recent administrations Medication Order MAR Action Action Date Dose Rate Site iohexol (OMNIPAQUE) 350 mg iodine/mL injection 38,500 mg 38,500 mg (110 mL), Intravenous, ONCE PRN, 1 dose, Starting on Mon07/27/12 at 1124, Until Mon07/27/12 at 1130, Per Protocol, Routine Given 07/27/2012 11:30 AM EDT 38,500 mg documented in this encounter Care Teams Polisher Brass Relationship Specialty Start Date End Date Ashley Calixto MD [address] [place] [address] PCP - General 12/21/11 12/10/14 documented as of this encounter
--- OUTSIDE RECORDS SUMMARY | 2023-09-07 12:25 | XMS_ITS | Encounter Summary ---
Author Organization [facility] [place] [address] Care Team Providers Care Line Puller Name Role Phone Ashley Calixto MD Primary Care Provider [phone] Encounter Details Date Type Department Care Team (Late st Contact Info) Description 07/02/2012 1:15 PM EDT [place] [address] Lj Braden MD [facility] DR [place]OP[place] [address] Knee pain (Primary Dx) Discharge Disposition: Home [...] Sign Reading Time Taken Comments Blood Pressure 130/90 07/02/2012 1:20 PM EDT Pulse 77 07/02/2012 1:20 PM EDT Temperature - - Respiratory Rate - - Oxygen Saturation - - Inhaled Oxygen Concentration - - Weight 130.2 kg (287 lb) 07/02/2012 1:20 PM EDT Height 180.3 cm (5' 11) 07/02/2012 1:20 PM EDT Body Mass Index 40.03 07/02/2012 1:20 PM EDT documented in this encounter Progress Notes * Lj Braden MD - 07/02/2012 1:45 PM EDT DATE OF VISIT: 07/02/2012 Mr. Langley is a 41-year-old patient who was most recently seen approximately six months ago in the orthopedic clinic for mild degenerative disease with his left knee. He has previously been arthroscoped in [place] by Dr. Fagan, at which time he was found to have some chondral changes of his medial femoral condyle as well as a small meniscal tear of his medial meniscus, which was debrided. He has had two prior Synvisc injections by Dr. Fagan without any significant relief of discomfort, but in 01/2012, underwent a steroid injection by MARKO Mix. That injection was very helpful, and he states his knee felt considerably better for nearly six months as his pain has been gradually returning only over the past two weeks. He is now here for consideration of a second steroid injection because of the long-term relief he got following his first one. PHYSICAL EXAMINATION: Physical exam of the left knee demonstrates very minimal effusion. He sits with the knee in a slightly flexed position, which is most comfortable for him, and it is difficult for him to get to full extension because of the pain. He flexes to approximately 110 degrees. He has a very stable knee to Phil's and drawer testing and no instability to varus or valgus stress. His tenderness is felt primarily over his medial joint line with no significant tenderness laterally. ASSESSMENT: Medial compartment arthrosis, left knee. Mr. Langley wanted to pursue an intraarticular steroid injection as he got such good long-term relief with his first one. We therefore chose to do so. So, we identified the correct left knee. We then prepped the lateral aspect of the knee with DuraPrep and draped the area with a fenestrated drape. His skin was insufflated and anesthetized with 5 mL of 1% lidocaine, and then the knee was injected intraarticularly with a combination of 4 mL of 1% lidocaine and 40 mg of Kenalog. He tolerated the injection well. We will be seeing him back on an [...] 40 mg, Intra-articular, ONCE, 1 dose, On Mon07/02/12 at 1400, Routine Given 07/02/2012 1:37 PM EDT 40 mg documented in this encounter Care Teams Line Puller Relationship Specialty Start Date End Date Ashley Calixto MD [address] [facility] [address] [place] [address] PCP - General 12/21/11 12/10/14 documented as of this encounter
--- OUTSIDE RECORDS SUMMARY | 2023-09-07 12:25 | XMS_ITS | Encounter Summary ---
Author Organization [facility] [place] [address] Care Team Providers Care Nematology Teacher Name Role Phone Ashley Calixto MD Primary Care Provider [phone] Reason for Visit * Reason Comments Left Knee Pain knee pain Encounter Details Date Type Department Care Team (Latest Contact Info) Description 11/21/2013 12:40 PM EDT Office [place] [address] Mihir Herrera MD [facility] [place] [address] Osteoarthritis of knee Discharge Disposition: Home Social History Tobacco Use [...] Sign Reading Time Taken Comments Blood Pressure 127/81 11/21/2013 1:13 PM EDT Pulse 88 11/21/2013 1:13 PM EDT Temperature - - Respiratory Rate - - Oxygen Saturation - - Inhaled Oxygen Concentration - - Weight 133.4 kg (294 lb) 11/21/2013 1:13 PM EDT Height 180.3 cm (5' 11) 11/21/2013 1:13 PM EDT Body Mass Index 41 11/21/2013 1:13 PM EDT documented in this encounter Progress Notes * Ellis Lindsey MD - 11/21/2013 5:16 PM EDT I reviewed the patient's history with him in the presence of his nurse. His functional status is >4METs - was using the recumbent bike regularly until the knee botheredhim too much, he hopes to get pain control with the surgery ie Left knee replacement and then get back to prior and perhaps even higher exercise level. He has 13 steps in the home and he was able to get up and down them though notes increasing pain in the knee has affected this which he hopes will improve after he recovers from his surgery. He confirms abstinence from smoking and desires to lose weight. He acknowledges a 6lb weight gain off the smoking. His A1c he notes was 6.1 recently and prior to that he had addition of glipizide to his metformin. He has not received authorization from [facility] for his Hep C treatment but notes his liver provider has told him about improvement in the virus numbers and also plans to repeat a liver biopsy after recovery from this surgery. He notes no GI bleeding, no h/o EGD. He has received instructions regarding his med use on the day of his surgery. He has no identified risk factors per the RCRI (he has DM2 but not on insulin) and given that his estimated risk is low for major adverse cardiovascular events. An EKG from May 2013 was reviewed and his creatinine today is 0.71 with a random glucose that is lower than prior 3 levels in the lab viewer and less than 180. He has a transition plan per his provider for his Suboxone around surgery. He states he has been on oxycodone in recent past and then gets back to Suboxone when his postoperative pain is better. * Mihir Herrera MD - 11/21/2013 1:45 PM EDT In the presence of Dr. Herrera, Meghana Gleason RN is documenting in this note as a scribe: HISTORY OF PRESENT ILLNESS: Very pleasant 43 y.o. year-old male with severe osteoarthritis of the knee. Given the severe nature of the arthritis and disability, aswell as the failure of conservative treatment measures, the patient has decided to proceed with left total knee arthroplasty. Please refer to my previous note for the full history. The patient reports that the pain has not changed and has actually gotten a bit worse. He reviewed the shared decision making video and is confident in the decision to go forward with total joint arthroplasty. He attended the [facility] Preop Education class and has received the TKA binder and reviewed the contents. His goals following total knee arthroplasty are: PHYSICAL EXAMINATION: Exam is previously documented in my note and is unchanged. Preop History and Physical completed by PCP. RELEVANT LAB STUDIES: Lab Results Component Value Date WBC 9.4 11/21/2013 HGB 13.9 11/21/2013 HCT 40.0 11/21/2013 PLATELET 199 11/21/2013 CREATININE 0.71* 11/21/2013 BUN 9* 11/21/2013 NA 136 11/21/2013 K 3.9 11/21/2013 INR 0.9 07/27/2012 Estimated Creatinine Clearance: 183 ml/min (based on Cr of 0.71). Urine: Culture pending type and screen done. DVT Risk Assessment Screening (TKR Doc flowsheet )reviewed: - Hx of DVT/ PE ? [x} No - Hypercoagulable State? [x} No - Genetic predisposition for DVT/PE? [x} No - Hx. Of Bleeding disorder?[x} No - Hx of GIB? [x} No - Hx of Hemorrhagic stroke? [x} No - Currently on lifelong coumadin?[x} No - Unable to tolerate coumadin? [x} No ASSESSMENT/PLAN: A 43 y.o. year-old male who presents for preoperative appointment today. The risksand benefits of the procedure were outlined in detail including but not limited to bleeding ,infection ,blood clots, scar formation, patellar dislocation, persistent pain, stiffness, failure, wear or loosening of components, fracture, nerve palsy, injury to blood vessel, skin numbness, anesthetic risks or medical complications and need for additional surgery. I used total knee implants to demonstrate how we perform the procedure and all questions were answered. I did review the history and physical today which says the patient is cleared for surgery and has no specific recommendations for further testing. I reviewed the labs and there were no issues with those. Informed consent was signed in the clinic today. We discussed DNR status and the patient is a full code. We will plan to use for coumadin for 28 days postoperatively for DVT prophylaxis. We discussed the possible discharge scenarios including going home versus needing to go to a rehab facility. We will make that determination after seeing how well mobilization is progressing. documented in this encounter Miscellaneous Notes * Addendum Note - Ellis Lindsey MD - 11/21/2013 5:32 PM EDTAddended by: ELLIS LINDSEY on: 11/21/2013 05:32 PM Modules accepted: Orders documented in this encounter Plan of Treatment Not on file documented as of this encounter Procedures Procedure Name Priority Date/Time Associated Diagnosis Comments HEMOGRAM STAT 11/21/2013 11:50 AM EDT Osteoarthritis of knee DIFFERENTIAL, AUTOMATED STAT 11/21/2013 11:50 AM EDT Osteoarthritis of knee CBC (WITH DIFF) STAT 11/21/2013 11:50 AM EDT Osteoarthritis of knee BASIC METABOLIC PANEL (NON-FASTING) Routine 11/21/2013 11:50 AM EDT Osteoarthritis of knee documented in this encounter Results * Differential, Automated (11/21/2013 11:50 AM EDT) Neutrophils % 55.4 34.0 - 71.0 % CERNER MILLENNIUM Neutr Abs (ANC) 5.21 1.50 - 6.30 x10(3)/mcL CERNER MILLENNIUM Lymphocytes % 34.5 19.0 - 53.0 % CERNER MILLENNIUM Lymphocytes Abs 3.2 1.0 - 3.6 x10(3)/mcL CERNER MILLENNIUM Monocytes % 4.4 4.0 - 13.0 % CERNER MILLENNIUM Monocyte Abs 0.4 0.2 - 1.0 x10(3)/mcL CERNER MILLENNIUM Eosinophils % 4.9 0.0 - 7.0 % CERNER MILLENNIUM Eosinophils Abs 0.5 0.0 - 0.5 x10(3)/mcL CERNER MILLENNIUM Basophils % 0.4 0.0 - 2.0 % CERNER MILLENNIUM Basophils Abs 0.0 0.0 - 0.2 x10(3)/mcL CERNER MILLENNIUM Immature Gran % 0.40 0.00 - 0.66 % CERNER MILLENNIUM Comment: Immature granulocytes(IG's)percentage and absolute count will include metamyelocytes, myelocytes, and promyelocytes. Blood smears from CBCs yielding IG's will be scanned manually for concordance. If this scan disagrees with the automated IG or if promyelocytes are noted, a manual differential will be performed. Alexa Gran Abs 0.04 0.00 - 0.05 x10(3)/mcL CERNER MILLENNIUM Blood specimen (specimen) 11/21/2013 11:50 AM EDT 11/21/2013 12:00 PM EDT Narrative Resulting Agency Comment Spec In Lab Mihir Herrera MD HEMATOLOGY ORDERABLE S CERJERE KNAPPENNIUM * (ABNORMAL) Hemogram (11/21/2013 11:50 AM EDT) WBC 9.4 4.0 - 10.0 x10(3)/mcL CERNER MILLENNIUM RBC 4.61(L) 4.63 - 6.08 x10(6)/mcL CERNER MILLENNIUM Hemoglobin 13.9 13.7 - 17.5 gm/dL CERNER MILLENNIUM Hematocrit 40.0 40.0 - 51.0 % CERNER MILLENNIUM MCV 86.8 79.0 - 92.0 fL CERNER MILLENNIUM MCH 30.2 25.6 - 32.2 pg CERNER MILLENNIUM MCHC 34.8 32.0 - 36.5 gm/dL CERNER MILLENNIUM Platelets 199 145 - 370 x10(3)/mcL CERNER MILLENNIUM RDWSD 40.0 35.0 - 46.0 fL CERNER MILLENNIUM RDWCV 12.6 10.9 - 14.4 % CERNER MILLENNIUM MPV 11.7 9.0 - 12.0 fL CERNER MILLENNIUM Blood specimen (specimen) 11/21/2013 11:50 AM EDT 11/21/2013 12:00 PM EDT Narrative Resulting Agency Comment Spec In Lab Mihir Herrera MD HEMATOLOGY ORDERABLE S CERNER MILLENNIUM * (ABNORMAL) Basic Metabolic Panel (non-fasting) (11/21/2013 11:50 AM EDT) Glucose Lvl 159 60 - 199 mg/dL CERNER MILLENNIUM Comment:Diabetes: >=200 mg/d L plus symptoms BUN 9(L) 10 - 20 mg/dL CERNER MILLENNIUM Creatinine 0.71(L) 0.80 - 1.50 mg/dL CERNER MILLENNIUM Comment: Please note that the pediatric reference intervals supplied above were not validated [place] [facility] [place] Results from pediatric patients should be interpreted in conjunction to the patient's age, height and muscle mass. Sodium 136 135 - 145 mmol/L CERNER MILLENNIUM Potassium 3.9 3.5 - 5.0 mmol/L CERNER MILLENNIUM Comment: Please note: ??Patients with WBC >100,000 may have falsely elevated Potassium levels. ??For accurate Potassium quantification in these patients send serum separator tube (gold top) for subsequent determinations. ??Contact the Clinical Chemistry Laboratory if there are any questions. Chloride 97(L) 98 - 107 mmol/L CERNER MILLENNIUM CO2 26 22 - 31 mmol/L CERNER MILLENNIUM Anion Gap 13 5 - 15 mmol/L CERNER MILLENNIUM Calcium 9.4 8.5 - 10.5 mg/dL CERNER MILLENNIUM Estimated [...] the following links into your internet browser. [email or web address] Blood specimen (specimen) 11/21/2013 11:50 AM EDT 11/21/2013 12:00 PM EDT Narrative Resulting Agency Comment Spec In Lab Mihir Herrera MD CHEMISTRY ORDERABLES Performing Organization Address City/State/[facility] Co de Phone Number [facility] documented in this encounter Visit Diagnoses Diagnosis Osteoarthritis of knee Osteoarthrosis, unspecified whether generalized or localized, lower leg documented in this encounter Care Teams Nematology Teacher Relationship Specialty Start Date End Date Ashley Calixto MD [address] [place] [address] PCP - General 12/21/11 12/10/14 documented as of this encounter
--- OUTSIDE RECORDS SUMMARY | 2023-09-07 12:25 | XMS_ITS | Encounter Summary ---
Author Organization [facility] Address [facility] [place] [address] Care Team Providers Care Vocational Case Manager Name Role Phone Ashley Calixto MD Primary Care Provider [phone] Encounter Details Date Type Department Care Team (Latest Contact Info) Description 05/24/2012 1:42 PM EDT - 05/24/2012 11:59 PM EDT Hospital Encounter XRay at [address] [place] [address] Work related injury; Right ankle sprain Social History Tobacco Use Types Packs/Day Years [...] tablet Take 20 mg by mouth daily. pyridoxine (VITAMIN B6) 50 mg tablet Take 50 mg by mouth daily. 07/27/2012 Triamcinolone Acetonide-L.S.B. 0.1 % OintIndications:Pruritu s Use to skin lesions 2-3 times daily as needed 80 g 5 04/23/2012 06/22/2012 fluticasone (FLOVENT) 220 mcg/actuation inhaler Inhale 1 puff into the lungs 2 times daily as needed. 04/02/2013 FLUoxetine (PROZAC) 10 mg capsule Take 10 mg by mouth daily. 06/22/2012 hydrOXYzine (ATARAX) 50 mg tablet Take 50 mg by mouth 3 times daily as needed. 06/22/2012 doxycycline (VIBRAMYCIN) 100 mg capsuleIndications:Foll iculitis Take 1 capsule by mouth 2 times daily. Take with food, avoid calcium within 1 hour of taking, may cause sunburn 60 capsule 2 10/28/2011 06/22/2012 buprenorphine-naloxone (SUBOXONE) 8-[address] 2 tablets under the tongue daily. 06/06/2013 metFORMIN (GLUCOPHAGE) 500 mg tablet Take 500 mg by mouth 2 times daily (with meals). 06/22/2012 fluvoxamine (LUVOX) 100 mg tablet Take 50 mg by mouth daily. 10/15/2012 traZODone (DESYREL) 50 mg tablet Take 50 mg by mouth nightly. 06/22/2012 documented as of this encounter Plan of Treatment Not on file documented as of this encounter Procedures Procedure Name Priority Date/Time Associated Diagnosis Comments XR ANKLE BILAT Routine 05/24/2012 2:05 PM EDT Work related injury Right ankle sprain documented in this encounter Results * XR ankles bilateral (05/24/2012 2:05 PM EDT) Anatomical Region Laterality Modality Foot Bilateral Radiographic Pamela ging 05/24/2012 2:05 PM EDT Narrative 05/24/2012 5:27 PM EDT Examination BILATERAL ANKLES Clinical History ATTN Dr. Zuniga and Dr. Maxwell: Three views of each ankle weight bearing to compare cartilage interval in mm bewteen L and R ankle of each joint (ankle, talonavicular, subtalar, and calcaneocuboid) for WC impairment rating Comparison None. Technique 3 views of the bilateral ankles. Findings Right ankle: No acute fracture dislocation is identified. ??Ankle mortise is congruent. ?? Tibiotalar joint space measures between the 3 to 3.5 mm. ?? Posterior subtalar joint space measures approximately 3.5 mm. ?? Calcaneocuboid joint space measures approximately 3 mm. ?? Talocalcaneal joint space measures approximately 2 mm grade Left ankle: No fracture dislocation. ??Ankle mortise is congruent. ?? Tibiotalar joint space measures between 3.5 to 4 mm. ?? Posterior subtalar joint space measures approximately 3 mm. ?? Calcaneocuboid joint space measure approximately 2.5 mm. ?? Talonavicular joint is there is approximately 2 mm. ?? Film and interpretation reviewed by the attending Procedure Note Viktor Zuniga MD - 05/24/2012 Examination BILATERAL ANKLES Clinical History ATTN Dr. Zuniga and Dr. Maxwell: Three views of each ankle weight bearingto compare cartilage interval in mm bewteen L and R ankle of each joint(ankle, talonavicular, subtalar, and calcaneocuboid) for WC impairment rating Comparison None. Technique 3 views of the bilateral ankles. Findings Right ankle: No acute fracture dislocation is identified. Ankle mortiseis congruent. Tibiotalar joint space measures between the 3 to 3.5 mm. Posterior subtalar joint space measures approximately 3.5 mm. Calcaneocuboid joint space measures approximately 3 mm. Talocalcaneal joint space measures approximately 2 mm grade Left ankle: No fracture dislocation. Ankle mortise is congruent. Tibiotalar joint space measures between 3.5 to 4 mm. Posterior subtalar joint space measures approximately 3 mm. Calcaneocuboid joint space measure approximately 2.5 mm. Talonavicular joint is there is approximately 2 mm. Film and interpretation reviewed by the attending Lis Marsh MD IMG DX ORDERABLES documented in this encounter Visit Diagnoses Diagnosis Work related injury Injury, other and unspecified, unspecified site Right ankle sprain Sprain of ankle, unspecified site documented in this encounter Care Teams Vocational Case Manager Relationship Specialty Start Date End Date Ashley Calixto MD [address] [place] [address] PCP - General 12/21/11 12/10/14 documented as of this encounter
--- OUTSIDE RECORDS SUMMARY | 2023-09-07 12:25 | XMS_ITS | Encounter Summary ---
Author Organization [facility] [place] [address] Care Team Providers Care Grid Molder Name Role Phone Ashley Calixto MD Primary Care Provider [phone] Reason for Visit * Reason Comments Follow-up Encounter Details Date Type Department Care Team (Late st Contact Info) Description 11/12/2012 3:30 PM EDT [place] [address] Judy Whitman APRN [facility] DR GASTROENTER[place]Y [place] [address] Chronic hepatitis C (Primary Dx) Discharge Disposition: [...] Sign Reading Time Taken Comments Blood Pressure 138/80 11/12/2012 3:33 PM EDT Pulse 94 11/12/2012 3:33 PM EDT Temperature - - Respiratory Rate - - Oxygen Saturation - - Inhaled Oxygen Concentration - - Weight 131.5 kg (290 lb) 11/12/2012 3:33 PM EDT Height 180.3 cm (5' 11) 11/12/2012 3:33 PM EDT Body Mass Index 40.45 11/12/2012 3:33 PM EDT documented in this encounter Patient Instructions * Patient Instructions* Judy Whitman APRN - 11/12/2012 4:08 PM EDT For your constipation: Miralax (generic is OK), please take 1 capful mixed in 8 oz of water once daily. You may adjust this dose, however, it may take up to 4 weeks to become fully effective. In the interim, it is safe to continue with Colace as needed. documented in this encounter Progress Notes * Judy Whitman APRN - 11/12/2012 3:45 PM EDT Subjective: Patient ID: Kaley Sousa is a 42 y.o. male. HPI Problem List: 1. Hepatitis C, genotype 2 A. Treatment - naive B. Liver Biopsy - 11/22/11 Stage 0-1/4 Fibrosis C. IL28B pending 2. Class III Obesity 3. DM2 4. [...] series through PCP Initial Consult 09/02/11: Mr. Sousa is a pleasant 41 year old white male who was seen today at [facility] in [...] 2011. He had 2 tattoos placed in alf in 1989 then in 1999. He has [...] started on metformin. Interval History 05/24/12: Mr. Sousa returns today in follow-up for Hepatitis C [...] his last visit. Interval History 07/27/12: Mr. Sousa returns today in follow-up for hepatitis C [...] within 4 days. Interval History 11/12/12: Mr. Sousa returns today in follow-up. He tells me [...] is suffering from constipation despite Colace daily. METFORMIN HCL (METFORMIN ORAL), Active; aspirin 325 mg tablet, Active; fluticasone (FLOVENT) 220 mcg/actuation inhaler, Active; pravastatin (PRAVACHOL) 20 mg tablet, Active; buprenorphine-naloxone (SUBOXONE) 8-2 mg Subl, Active Allergies Allergen Reactions ??? Isoniazid ? Rash... Family Status Relation Status Age ??? Mother 54 [place] ??? Father 56 [place] ??? Sister Alive age 61 ??? Sister [...] 32 ALT 70 HgA1c 6.2 Skin Biopsy 8/31/12: ---Comment--- The findings are consistent with the [...] too small to characterize, without aggressive features. Labs 07/27/12: Results for KALEY SOUSA ( ) as of 11/12/2012 15:55 Ref. Range 07/27/2012 14:09 WBC Latest Range: 4.0-10.0 x10(3)/mcL 8.6 RBC Latest Range: 4.63-6.08 x10(6)/mcL 4.61 (L) Hemoglobin Latest Range: 13.7-17.5 gm/dL 14.1 Hematocrit Latest Range: 40.0-51.0 % 40.1 MCV Latest Range: 79.0-92.0 fL 87.0 MCH Latest Range: 25.6-32.2 pg 30.6 MCHC Latest Range: 32.0-36.5 gm/dL 35.2 RDWSD Latest Range: 35.0-46.0 fL 40.7 RDWCV Latest Range: 10.9-14.4 % 12.7 Platelets Latest Range: 145-370 x10(3)/mcL 238 MPV Latest Range: 9.0-12.0 fL 11.6 Neutr Abs (ANC) Latest Range: 1.50-6.30 x10(3)/mcL 4.85 Neutrophils % Latest Range: 34.0-71.0 % 56.3 Immature Gran % Latest Range: 0.00-0.66 % 0.10 Lymphocytes % Latest Range: 19.0-53.0 % 33.4 Monocytes % Latest Range: 4.0-13.0 % 6.2 Eosinophils % Latest Range: 0.0-7.0 % 3.5 Basophils % Latest Range: 0.0-2.0 % 0.5 Alexa Gran Abs Latest Range: 0.00-0.05 x10(3)/mcL 0.01 Lymphocytes Abs Latest Range: 1.0-3.6 x10(3)/mcL 2.9 Monocyte Abs Latest Range: 0.2-1.0 x10(3)/mcL 0.5 Eosinophils Abs Latest Range: 0.0-0.5 x10(3)/mcL 0.3 Basophils Abs Latest Range: 0.0-0.2 x10(3)/mcL 0.0 PT Latest Range: 12.0-15.0 sec 12.0 INR Latest Range: 0.9-1.1 0.9 Sodium Latest Range: 135-145 mmol/L 138 Potassium Latest Range: 3.5-5.0 mmol/L 3.8 Chloride Latest Range: 98-107 mmol/L 99 CO2 Latest Range: 22-31 mmol/L 28 Anion Gap Latest Range: 5-15 mmol/L 11 BUN Latest Range: 10-20 mg/dL 9 (L) Creatinine Latest Range: 0.80-1.50 mg/dL 0.63 (L) Estimated GFR Latest Range: >=60 >60 Glucose Lvl Latest Range: 60-199 mg/dL 218 (H) Calcium Latest Range: 8.5-10.5 mg/dL 9.0 Total Protein Latest Range: 6.4-8.3 gm/dL 7.2 Albumin Latest Range: 3.2-5.2 gm/dL 3.9 Total Bilirubin Latest Range: 0.2-1.3 mg/dL 0.2 Bili, Direct Latest Range: 0.0-0.3 mg/dL 0.1 Alk Phos Latest Range: 40-120 unit/L 82 AST Latest Range: 0-39 unit/L 31 ALT Latest Range: 0-55 unit/L 47 MONTY Latest Range: Neg Neg Quantiferon-TB Latest Range: Negative Positive Review of Systems Constitutional: Negative for fever, chills, diaphoresis (resolved), fatigue (energy level improved)and unexpected weight change. Respiratory: Negative for cough (resolved), shortness of breath (resolved) and wheezing. Chest infection - has had 2 rounds of Augmentin. Stopped 2 weeks ago Cardiovascular: Positive for leg swelling (left LE will swell intermittently). Negative for chest pain and palpitations. Gastrointestinal: Positive for abdominal pain (mild constipation due to constipation) and constipation. Negative for nausea, vomiting, diarrhea, blood in stool and abdominal distention. Denies heartburn. BM once daily. Some constipation due Suboxone. Taking stool softener (Colace) Genitourinary: Negative for hematuria. Dark urine x 3 months. This has improved since discontinuing Isoniazid Musculoskeletal: Positive for back pain (Back pain improved now) and arthralgias (Left knee pain). Negative for joint swelling. Skin: Positive for rash (resolving since d/c'ing Isoniazid). Negative for color change. Open sores are [...] developed and well-nourished. Body mass index is 40.45 kg/(m^2). HENT: Head: Normocephalic and atraumatic. Eyes: Pupils are equal, round, and reactive to light. No scleral icterus. Neck: Normal range of motion. Neck supple. No thyromegaly present. Cardiovascular: Normal rate, regular rhythm and normal heart sounds. No murmur heard. Pulmonary/Chest: Effort normal and breath sounds normal. He has no wheezes. He has no rales. Abdominal: Soft. Bowel sounds are normal. He exhibits distension. He exhibits no mass. There is no tenderness. There is no guarding. Exam limited due to body habitus Musculoskeletal: He exhibits edema (trace pitting edema BLE). Lymphadenopathy: He has no cervical adenopathy. Neurological: He is alert and oriented to person, place, and time. No asterixis Skin: Skin is warm and dry. No rash (open sores, healing) noted. There is erythema (Palmar erythema. Spider angiomata on chest). Psychiatric: He has a normal mood and affect. His behavior is normal. Assessment and Plan: Mr. Sousa is a pleasant 42 year old white male seen in follow-up for hepatitis C, genotype 2, stage 0-1 fibrosis. He has risk factors for hepatitis C dating back 20-25 years. He has been clean since February 2011 at which time he was started on suboxone. 1. Rash, due to Isoniazid. Rash continues to heal. 2. Hepatitis C, genotype 2, stage 0-1. Because he has minimal fibrosis, it would be in patient's best interest to await the new non-Interferon HCV regimens which are expected to become available for genotype 2 before the end of this calendar year. These new medications are showing significantly improved efficacy, shorter duration of treatment and significantly fewer side effects. Will initiate [place] atment in February. 3. Class III obesity. He had not been exercising due to left knee pain. Things are now improving and he plans to start exercising. He tells me that he has cleaned out exercise room at his house. I explained that obesity increases risk of progression of liver fibrosis due to COELHO in combination withHCV. Additionally, obese pts have poorer response to HCV medications. Strongly advised weight loss through diet and exercise. 4. Hepatitis A and B vaccine series. He believes that he completed vaccine series through PCP. He agreed to follow-up to ensure that he has had all three in series. 5. Tobacco use. I have strongly advised smoking cessation. 6. Latent TB. He is seeing Infectious Disease specialist on 11/27/12. 7. Constipation. Rec Miralax 1 capful daily mixed in 8 oz water. Explained that this may take up to4 weeks to become fully effective. All of his questions were answered. He verbalized understanding and agreement to the plan of care. I will plan to see him back in February with labs and ultrasound. documented in this encounter Miscellaneous Notes * Addendum Note - Judy Whitman APRN - 11/12/2012 4:53 PM EDTAddended by: JUDY WHITMAN on: 11/12/2012 04:53 PM Modules accepted: Orders documented in this encounter Plan of Treatment Not on file documented as of this encounter Results * HIV (03/18/2013 9:31 AM EST) Pathologist [facility] HIV 1/2 Ab Negative Negative [facility] Blood specimen (specimen) 03/18/2013 9:31 AM EST 03/18/2013 9:38 AM EST Narrative Resulting Agency Comment Spec In Lab Taran Peralta MD IMMUNOLOGY ORDERABL ES [facility] * (ABNORMAL) TSH (03/18/2013 9:31 AM EST) TSH 6.06(H) 0.27 - 4.20 mcIU/mL [facility] Blood specimen (specimen) 03/18/2013 9:31 AM EST 03/18/2013 9:38 AM EST Narrative Resulting Agency Comment Spec In Lab Taran Peralta MD CHEMISTRY ORDERABLE S [facility] * (ABNORMAL) Comprehensive metabolic panel (non-fasting) (03/18/2013 9:31 AM EST) Glucose Lvl 210(H) 60 - 199 mg/dL [facility] Comment:Diabetes: >=200 mg/d L plus symptoms BUN 9(L) 10 - 20 mg/dL [facility] Creatinine 0.65(L) 0.80 - 1.50 mg/dL [facility] Comment: Please note that the pediatric reference intervals supplied above were not validated at [facility]. Results from pediatric patients should be interpreted in conjunction to the patient's age, height and muscle mass. Sodium 134(L) 135 - 145 mmol/L [facility] Potassium [...] 8.9 8.5 - 10.5 mg/dL [facility] Total Protein 7.5 6.4 - 8.3 gm/dL [facility] Albumin 3.8 3.2 - 5.2 gm/dL [facility] AST 23 0 - 39 unit/L [facility] ALT 40 0 - 55 unit/L [facility] Alk [...] internet browser. http://www.nkdep.nih.gov/lab-evaluation.shtml http://www.kidney.org/professionals/ Blood specimen (specimen) 03/18/2013 9:31 AM EST 03/18/2013 9:38 AM EST Narrative Resulting Agency Comment Spec In Lab Taran Peralta MD CHEMISTRY ORDERABLE S [facility] * (ABNORMAL) CBC (with Diff) (03/18/2013 9:31 AM EST) WBC 10.7(H) 4.0 - 10.0 x10(3)/mcL [facility] RBC 4.79 4.63 - 6.08 x10(6)/mcL [facility] Hemoglobin 14.2 13.7 - 17.5 gm/dL [facility] Hematocrit 41.0 40.0 - 51.0 % [facility] MCV 85.6 79.0 - 92.0 fL [facility] MCH 29.6 25.6 - 32.2 pg [facility] MCHC 34.6 32.0 - 36.5 gm/dL [facility] Platelets 225 145 - 370 x10(3)/mcL [facility] RDWSD 38.7 35.0 - 46.0 fL [facility] RDWCV 12.5 10.9 - 14.4 % [facility] MPV 11.6 9.0 - 12.0 fL [facility] Blood specimen (specimen) 03/18/2013 9:31 AM EST 03/18/2013 9:38 AM EST Narrative Resulting Agency Comment Spec In Lab Traan Peralta MD [facility] * abdomen complete (03/18/2013 8:49 AM EST) Anatomical Region Laterality Modality Abdomen, Vascular Ultrasound 03/18/2013 8:49 AM EST Narrative 03/18/2013 9:16 AM EST ?Abdominal ? (Signed Final 03/18/2013 09:13 am) Patient Info ID: ? [id number] ? : [birth year] (42 yrs) Name: ? KALEY SOUSA ? Visit Date: 03/18/2013 08:43 am Performed By Performed By: ?Malika Calderón RDMS Associate: ? Yaritza Bahena MD Attending: ? Chava WEBSTER, Pablo Angel Referred By: ? TARAN PERALTA MD Service(s) Provided [facility] - Abdominal Complete Survey - [id number] ? [id number] Indications Hepatitis C Comparison CT abd and pelvis 07/27/12 ----- Liver ----- Right Lobe Length: ?? 20 ? cm Echogenicity/Echotexture: ?? Increased echogenicity Comment: ?Hepatomegaly. Rt lobe liver cyst measuring 5 mm, ? unchanged compare to prior CT. Gallbladder Cholelithiasis: ?No stones visualized Wall Thickness: ?2 mm Focal Tenderness: ?Negative sonographic Chen's sign Biliary Tract Intrahepatic Ducts: ?? Normal Extrahepatic Ducts: ?? Normal Common Duct Size: ? 3 ? mm -------- Pancreas -------- Head: ? Poorly visualized due to overlying bowel Tail: ? Poorly visualized due to overlying bowel Body: ? Poorly visualized due to overlying bowel ------ Spleen ------ Size (cm) ?L: ??9.9 Comment: ?Normal appearance Right Kidney Size (cm) ?L: ??12.4 Cortical Thickness: ?Normal Cortical Echogenicity: ?? Normal Hydronephrosis: ?No sonographic evidence Left Kidney Size (cm) ?L: ??12.4 Cortical Thickness: ?Normal Cortical Echogenicity: ?? Normal Hydronephrosis: ?No sonographic evidence ----- Aorta ----- Measurements (cm): Proximal ? AP: ?? 2.1 Mid ?AP: ?? 1.9 Distal ? AP: ?? 1.9 Rt Iliac ? AP: ?? 1 Lt Iliac ? AP: ?? 1.1 Comment: ?Normal in caliber where visualized --- IVC --- Normal in caliber where visualized Impression Ultrasound - Abdomen Complete - Summary 1. Mild hepatomegaly with increased echogenicity consistent with fatty infiltration. ??No hepatic mass. 2. Small 5 mm. hepatic cyst, unchanged compare to prior CT. I ??viewed the images and agree with the above interpretation. Thank you for allowing us to participate in the care of KALEY SOUSA. Please do not hesitate to call if you have any questions. ? Pablo Larsen MD Electronically Signed Final Report ?? 03/18/2013 09:13 am Film and interpretation reviewed by the attending Procedure Note Pablo Larsen MD - 03/18/2013 Abdominal (Signed Final 03/18/2013 09:13 am) Patient Info ID: [id number] : [birth year] (42 yrs) Name: KALEY SOUSA Visit Date: 03/18/2013 08:43 am Performed By Performed By: Malika Calderón RDMS Associate: Yaritza Bahena MD Attending: Pablo Larsen MD Referred By: TARAN PERALTA MD Service(s) Provided [facility] - Abdominal Complete Survey - [id number] Indications Hepatitis C Comparison CT abd and pelvis 5/31/13 ----- Liver ----- Right Lobe Length: 20 cm Echogenicity/Echotexture: Increased echogenicity Comment: Hepatomegaly. Rt lobe liver cyst measuring 5 mm, unchanged compare to prior CT. Gallbladder Cholelithiasis: No stones visualized Wall Thickness: 2 mm Focal Tenderness: Negative sonographic Chen's sign Biliary Tract Intrahepatic Ducts: Normal Extrahepatic Ducts: Normal Common Duct Size: 3 mm -------- Pancreas -------- Head: Poorly visualized due to overlying bowel Tail: Poorly visualized due to overlying bowel Body: Poorly visualized due to overlying bowel ------ Spleen ------ Size (cm) L: 9.9 Comment: Normal appearance Right Kidney Size (cm) L: 12.4 Cortical Thickness: Normal Cortical Echogenicity: Normal Hydronephrosis: No sonographic evidence Left Kidney Size (cm) L: 12.4 Cortical Thickness: Normal Cortical Echogenicity: Normal Hydronephrosis: No sonographic evidence ----- Aorta ----- Measurements (cm): Proximal AP: 2.1 Mid AP: 1.9 Distal AP: 1.9 Rt Iliac AP: 1 Lt Iliac AP: 1.1 Comment: Normal in caliber where visualized --- IVC --- Normal in caliber where visualized Impression Ultrasound - Abdomen Complete - Summary 1. Mild hepatomegaly with increased echogenicity consistent with fatty infiltration. No hepatic mass. 2. Small 5 mm. hepatic cyst, unchanged compare to prior CT. I viewed the images and agree with the above interpretation. Thank you for allowing us to participate in the care of KALEY SOUSA. Please do not hesitate to call if you have any questions. Pablo Larsen MD Electronically Signed Final Report 03/18/2013 09:13 am Film and interpretation reviewed by the attending Taran Peralta MD IMG GEN ORDERABL ES documented in this encounter Visit Diagnoses Diagnosis Chronic hepatitis C- Primary Chronic hepatitis C without mention of hepatic coma Chronic hepatitis C Chronic hepatitis C without mention of hepatic coma documented in this encounter Care Teams Grid Molder Relationship Specialty Start Date End Date Ashley Calixto MD [address] [place] [address] PCP - General 12/21/11 12/10/14 documented as of this encounter
--- OUTSIDE RECORDS SUMMARY | 2023-09-07 12:25 | XMS_ITS | Encounter Summary ---
Author Organization [facility] Address [facility] [place] [address] Care Team Providers Care Fish Bin Tender Name Role Phone Ashley Calixto MD Primary Care Provider [phone] Encounter Details Date Type Department Care Team (Latest Contact Info) Description 03/18/2013 8:00 AM EST - 03/18/2013 11:59 PM [facility] Hospital [place] [address] Patience Whitman, [facility] [place] [address] Chronic hepatitis C Discharge Disposition: Home Social [...] tablet Take 20 mg by mouth daily. METFORMIN HCL (METFORMIN ORAL) Take 4 tablets by mouth daily. 500mg 12/11/2014 aspirin 325 mg tablet Take 81 mg by mouth daily. 11/21/2013 fluticasone (FLOVENT) 220 mcg/actuation inhaler Inhale 1 puff into the lungs 2 times daily as needed. 04/02/2013 buprenorphine-naloxone (SUBOXONE) 8-[address] 2 tablets under the tongue daily. 06/06/2013 documented as of this encounter Plan of Treatment Not on file documented as of this encounter Procedures Procedure Name Priority Date/Time Associated Diagnosis Comments US ABDOMEN COMPLETE Routine 03/18/2013 8 :49 AM EST Chronic hepatitis C documented in this encounter Results * US abdomen complete (03/18/2013 8:49 AM EST) Anatomical Region Laterality Modality Abdomen, Vascular Ultrasound 03/18/2013 8:49 AM EST Narrative 03/18/2013 9:16 AM EST ?Abdominal ? (Signed Final 03/18/2013 09:13 am) Patient Info ID: ? [id number] ? : [birth year] (42 yrs) Name: ? ZACK Mathis MERRY ? Visit Date: 03/18/2013 08:43 am Performed By Performed By: ?Malika Calderón RDMS Associate: ? Josef WEBSTER, Yaritza Attending: ? Pablo Larsen MD Referred By: ? MENDEZ CUENCA MD Service(s) Provided [facility] - Abdominal Complete Survey - [id number] ? [id number] Indications Hepatitis C Comparison CT abd and [...] us to participate in the care of ZACK LANGLEY. Please do not hesitate to call if you have any questions. ? Pablo Larsen MD Electronically Signed Final Report ?? 03/18/2013 09:13 am Film and interpretation reviewed by the attending Procedure Note Pablo Larsen MD - 03/18/2013 Abdominal (Signed Final 03/18/2013 09:13 am) Patient Info ID: [id number] : [birth year] (42 yrs) Name: ZACK LANGLEY Visit Date: 03/18/2013 08:43 am Performed By Performed By: Malika Calderón RDMS Associate: Yaritza Bahena MD Attending: Pablo Larsen MD Referred By: MENDEZ CUENCA MD Service(s) Provided [facility] - Abdominal Complete Survey - [phone] [id number] Indications Hepatitis C Comparison CT abd and pelvis 07/27/12 ----- Liver ----- Right Lobe Length: 20 [...] us to participate in the care of ZACK LANGLEY. Please do not hesitate to call if you have any questions. Pablo Larsen MD Electronically Signed Final Report 03/18/2013 09:13 am Film and interpretation reviewed by the attending Mendez Cuenca MD IMG US GEN ORDERABL ES documented in this encounter Visit Diagnoses Diagnosis Chronic hepatitis C Chronic hepatitis C without mention of hepatic coma documented in this encounter Care Teams Fish Bin Tender Relationship Specialty Start Date End Date Ashley Calixto MD [address] [place] [address] [facility] [address] [place] [address] PCP - General 12/21/11 12/10/14 documented as of this encounter
--- OUTSIDE RECORDS SUMMARY | 2023-09-07 12:25 | XMS_ITS | Encounter Summary ---
Author [facility] [place] [address] Care Team Providers Care Chief Librarian Branch Name Role Phone Ashley Calixto MD Primary Care Provider [phone] Reason for Visit * Reason Onset Date Comments Pre Procedure Call 10/03/2013 Encounter Details Date Type Department Care Team (Late st Contact Info) Description 10/03/2013 Telephone [place] [address] Mihir Herrera MD [facility] [address] [place] [address] Pre Procedure Call Social History Tobacco Use Types [...] encounter Miscellaneous Notes * Telephone Encounter - Marcia Calderon - 10/03/2013 1:16 PM EDT Patient returned my call and I have scheduled him for a LEFT TKA on 12/02/[address] Herrera. Thank you. * Telephone Encounter - Marcia Calderon - 10/03/2013 1:04 PM EDT I called and left patient a message to call me back directly to schedule surgery. documented in this encounter Plan of Treatment Not on file documented as of this encounter Visit Diagnoses Not on filedocumented in this encounter Care Teams Chief Librarian Branch Relationship Specialty Start Date End Date Ashley Calixto MD [address] [place] [address] PCP - General 12/21/11 12/10/14 documented as of this encounter
--- OUTSIDE RECORDS SUMMARY | 2023-09-07 12:25 | XMS_ITS | Encounter Summary ---
Author Organization [facility] [place] [address] Care Team Providers Care Datastage Developer Name Role Phone Ashley Calixto MD Primary Care Provider [phone] Reason for Visit * Reason Comments Left Knee Pain knee pain Encounter Details Date Type Department Care Team (Latest Contact Info) Description 10/03/2013 9:50 AM EDT Office [place] [address] Mihir Herrera MD [facility] DR [place] [address] Osteoarthritis of knee (Primary Dx) Discharge Disposition: [...] Sign Reading Time Taken Comments Blood Pressure 132/87 10/03/2013 10:07 AM EDT Pulse 112 10/03/2013 10:07 AM EDT Temperature - - Respiratory Rate - - Oxygen Saturation - - Inhaled Oxygen Concentration - - Weight 128.6 kg (283 lb 8 oz) 10/03/2013 10:07 A M EDT Height 180.3 cm (5' 11) 10/03/2013 10:07 AM EDT Body Mass Index 39.54 10/03/2013 10:07 AM EDT documented in this encounter Progress Notes * Steve Rojas R - 10/03/2013 11:05 AM EDT Zack Langley is a 43-year-old gentleman who is known to the department with left knee degenerative joint disease. He reports that he had originally been at work lifting heavy pipe when he felt a pop in his left knee. He underwent a left knee arthroscopy with partial meniscectomy in [address] Fagan in [facility]. He has continued to have left knee pain and disability following that procedure. He is not able to work for the last two years due to his left knee. He reports a diffuse anterior and medial-sided pain. He does not have any clicking or popping. He does feel that he has occasional swelling of the knee. He has been on Suboxone as a recovery for narcotic abuse in the past, but he has been very good with that. He has been able to decrease his smoking to about 10 cigarettes a day. His last hemoglobin A1c was 6.3 with his primary care physician. He has tried Synvisc and cortisone injections. The cortisone gave him significant relief at first, but has been giving him diminishing returns. The last injection was approximately three months ago. He says it did not help at all. His hepatitis C is under adequate control at this point and his liver function is excellent. He has not been approved for treatment for his hepatitis C because of how good his liver function is. At this point, he is very interested in pursuing total knee arthroplasty as a solution to his knee pain and a way for him to get back to work. He is certainly willing. He reports that he is willing to give up all tobacco use and is willing to be tested for nicotine prior to surgery. He has made adjustments to his diabetes control, which has resulted in dramatic improvement in his A1c. His past medical history was reviewed today. 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 He has diabetes mellitus type 2, hepatitis C, hyperlipidemia, and depression. His medications and allergies were reviewed today. HE DOES HAVE A LISTED ALLERGY TO ISONIAZID. His review of systems is otherwise negative today. Physical examination of the left knee Is documented below. IMAGING: X-rays taken in 2012 and repeated approximately four weeks ago were reviewed demonstrating medial compartment degeneration of the right knee. There is some osteophyte formation in the lateral compartment as well as patellofemoral compartment. There is certainly progression of the disease between 2012 and 2014 in the medial compartment. ASSESSMENT AND PLAN: Zack Langley is a 43-year-old gentleman with left knee degenerative joint disease following meniscectomy in 2011. At this point, he feels that he is needing to proceed with a total knee replacement to be able to return to work in his quality of life. He is seen today with his and their two young sons and he seems to have an excellent support system at home. We discussed with him that due to his age and his diabetes that he is certainly at high-risk for developing an infection at some point over the life with implant and that we want to stress to him the importance of strict blood glucose control at all times. We have also told him that his smoking needs to be completely stopped prior to proceeding to surgery. We would also need to make arrangements regarding his Suboxone therapy and weaning him off the Suboxone so that we can use perioperative pain management techniques. At this point, we would begin the scheduling for surgery process. We plan to use an Attune cruciate retaining rotating-platform total knee in this gentleman to try and preserve adequate bone. We have told him that we will test him for nicotine prior to any surgery and that we will cancel the surgery should there be any trace of nicotine in the system. We also require that his hemoglobin A1c remain less than 7.3. He will see his primary care physician and have his records faxed to our surgical schedulers. He will certainly need a preop H and P and we may need to consider a pain clinic referral to work with him on the Suboxone and they have a plan in place for that prior to surgery. We will see him back after these items are taken care of and we will begin working towards getting him a left total knee replacement. documented in this encounter Plan of Treatment Not on file documented as of this encounter Procedures Procedure Name Priority Date/Time Associated Diagnosis Comments TOTAL KNEE ARTHROPLASTY Routine 10/04/19 14 11:04 AM EDT Osteoarthritis of knee documented in [...] narrowing. Mihir Herrera MD IMG DX ORDERABLES * (ABNORMAL) Basic Metabolic Panel (non-fasting) (11/21/2013 11:50 AM EDT) [facility] Signature Glucose Lvl 159 60 - 199 mg/dL CERNER MILLENNIUM Comment:Diabetes: >=200 mg/d L plus symptoms BUN 9(L) 10 - 20 mg/dL CERNER MILLENNIUM Creatinine 0.71(L) 0.80 - 1.50 mg/dL CERNER MILLENNIUM Comment: Please note that the pediatric reference intervals supplied above were not validated at [facility]. Results from pediatric patients should be interpreted [...] the following links into your internet browser. [email or web address] Blood specimen (specimen) 11/21/2013 11:50 AM EDT 11/21/2013 12:00 PM EDT Narrative Resulting Agency Comment Spec In Lab Mihir Herrera MD CHEMISTRY ORDERABLES RANDY MORALES documented in this encounter Visit Diagnoses Diagnosis Osteoarthritis of knee- Primary Osteoarthrosis, unspecified whether generalized or localized, lower leg Osteoarthritis of knee Osteoarthrosis, unspecified whether generalized or localized, lower leg documented in this encounter Care Teams Datastage Developer Relationship Specialty Start Date End Date Ashley Calixto MD [address] [place] [address] PCP - General 12/21/11 12/10/14 documented as of this encounter
--- OUTSIDE RECORDS SUMMARY | 2023-09-07 12:25 | XMS_ITS | Encounter Summary ---
[place] [address] Care Team Providers Care Red Leader Name Role Phone Ashley Calixto MD Primary Care Provider [phone] Encounter Details Date Type Department Care Team (Late st Contact Info) Description 11/21/2013 11:20 AM EDT Clinical [place] [id number] Social History Tobacco Use Types Packs/Day Years [...] Sign Reading Time Taken Comments Blood Pressure - - Pulse 90 11/21/2013 10:59 AM EDT Temperature - - Respiratory Rate - - Oxygen Saturation 96% 11/21/2013 10:59 AM EDT Inhaled Oxygen Concentration - - Weight 133.4 kg (294 lb) 11/21/2013 10:59 AM EDT Height 180.3 cm (5' 11) 11/21/2013 10:59 AM EDT Body Mass Index 41 11/21/2013 10:59 AM EDT documented in this encounter Progress Notes * Shanice Olivares RN - 11/21/2013 11:42 AM EDT PAT questionnaire reviewed with patient while in Pre Admission testing. No problems with anesthesiain the past. DM and HTN both well controlled with medications. Hep.C+ - followed here for that. Sleep study done - unable to tolerate CPAP machine. Pre-operative instruction booklet reviewed. Patient verbalizes a good understanding of all information reviewed. On Suboxone: was told to stop one day ahead of surgery. PLAN: Testing: Labs Special medication instructions: Stop Suboxone on 12/01; ortho will advise about ASA Procedure date: 12/02/13 documented in this encounter Plan of Treatment Not on file documented as of this encounter Visit Diagnoses Not on filedocumented in this encounter Care Teams Red Leader Relationship Specialty Start Date End Date Ashley Calixto MD [facility] [address] [place] [address] PCP - General 12/21/11 12/10/14 documented as of this encounter
--- OUTSIDE RECORDS SUMMARY | 2023-09-07 12:25 | XMS_ITS | Encounter Summary ---
Author Organization [facility] [place] [address] Care Team Providers Care Typing Pool Supervisor Name Role Phone Ashley Calixto MD Primary Care Provider [phone] Encounter Details Date Type Department Care Team (Late st Contact Info) Description 05/24/2012 Orders [place] [address] Lis Marsh MD [facility] [place] [address] Work related injury (Primary Dx); Right ankle sprain Social History Tobacco Use [...] as of this encounter Results * XR ankles bilateral [...] this encounter Visit Diagnoses Diagnosis Work related injury- Primary Injury, other and unspecified, unspecified site Right ankle sprain Sprain of ankle, unspecified site Work related injury Injury, other and unspecified, unspecified site Right ankle sprain Sprain of ankle, unspecified site documented in this encounter Care Teams Typing Pool Supervisor Relationship Specialty Start Date End Date Ashley Calixto MD [address] [place] [address] PCP - General 12/21/11 12/10/14 documented as of this encounter
--- OUTSIDE RECORDS SUMMARY | 2023-09-07 12:25 | XMS_ITS | Encounter Summary ---
Author Organization [facility] [place] [address] Care Team Providers Care Educational Aide Name Role Phone Ashley Calixto MD Primary Care Provider [phone] Encounter Details Date Type Department Care Team (Late st Contact Info) Description 09/18/2013 Orders [place] [address] Lj Braden MD [facility] [place] [address] Left knee pain (Primary Dx) Social History Tobacco [...] XR knee diagnostic 1 or 2 view (09/18/2013 2:22 PM EDT) Anatomical Region Laterality Modality Knee N/A Radiographic Pamela ging 09/18/2013 2:22 PM EDT Narrative 09/18/2013 3:06 PM EDT Examination KNEE 1 OR 2 VIEWS/LEFT Clinical History left knee pain s/p scope x 2 years ago Comparison 11/07/2011. Technique 2 views of the left knee. Findings Since prior 2011, there has been interval worsening in now severe medial compartment joint space narrowing with enlarging medial compartment marginal osteophytes and accompanying subchondral sclerosis. ??Tiny patellar osteophytes are unchanged. ??Probable small amount of knee joint fluid. ??No large joint effusion. ??No fracture seen. ??Mild medial compartment joint space narrowing at the right knee is unchanged. ??Genu varus also noted bilaterally. Impression No acute osseous injury large joint effusion. Interval progression in medial compartment osteoarthropathy of the left knee with genu varus. Unchanged mild medial compartment joint space narrowing at the right knee. Procedure Note Viktor Zuniga MD - 09/18/2013 Examination KNEE 1 OR 2 VIEWS/LEFT Clinical History left knee pain s/p scope x 2 years ago Comparison 11/07/2011. Technique 2 views of the left knee. Findings Since prior 2011, there has been interval worsening in now severe medial compartment joint space narrowing with enlarging medial compartmentmarginal osteophytes and accompanying subchondral sclerosis. Tiny patellarosteophytes are unchanged. Probable small amount of knee joint fluid. No large joint effusion. No fracture seen. Mild medial compartment joint spacenarrowing at the right knee is unchanged. Genu varus also noted bilaterally. Impression No acute osseous injury large joint effusion. Interval progression in medial compartment osteoarthropathy of the leftknee with genu varus. Unchanged mild medial compartment joint space narrowing at the rightknee. Lj Braden MD IMG DX ORDERABLES documented in this encounter Visit Diagnoses Diagnosis Left knee pain- Primary Pain in joint, lower leg Left knee pain Pain in joint, lower leg documented in this encounter Care Teams Educational Aide Relationship Specialty Start Date End Date Ashley Calixto MD [facility] [address] [place] [address] PCP - General 12/21/11 12/10/14 documented as of this encounter
--- OUTSIDE RECORDS SUMMARY | 2023-09-07 12:25 | XMS_ITS | Encounter Summary ---
Author Organization [facility] [place] [address] Care Team Providers Care Overnight Associate Name Role Phone Ashley Calixto MD Primary Care Provider [phone] Encounter Details Date Type Department Care Team (Late st Contact Info) Description 09/18/2013 Telephone [place] [id number] Mihir Herrera MD [facility] [place] [address] Social History Tobacco Use Types Packs/Day Years [...] Notes * Telephone Encounter - Yajaira Dyer Shirley - 09/18/2013 3:39 PM EDT Ask patient to verify the following: Full name: Zack Langley : 1970 Phone number: [phone] (home) Mailing address: [address] [facility] [address] AGE: 43 y.o. REASON FOR APPOINTMENT: KNEE PAIN o REFERRED BY DR. PUTNAM AT HIS 09/18 APPOINTMENT. COMPLETE. documented in this encounter Plan of Treatment Not on file documented as of this encounter Visit Diagnoses Not on filedocumented in this encounter Care Teams Overnight Associate Relationship Specialty Start Date End Date Ashley Calixto MD [facility] [address] [facility] [address] [place] [address] PCP - General 12/21/11 12/10/14 documented as of this encounter
--- OUTSIDE RECORDS SUMMARY | 2023-09-07 12:25 | XMS_ITS | Encounter Summary ---
[place] [address] Care Team Providers Care Log Scaler Name Role Phone Ashley Calixto MD Primary Care Provider [phone] Reason for Visit * Reason Onset Date Comments Prior Authorization 07/09/2013 hep c treatm ent Encounter Details Date Type Department Care Team (Late st Contact Info) Description 07/09/2013 Telephone [place] [address] Haley Mora project engineer chemicals (hep c treatment ) Social History Tobacco Use Types Packs/Day Years [...] encounter Miscellaneous Notes * Telephone Encounter - Haley Mora RMA - 07/09/2013 10:45 AM EDT Medication: sovaldi Dosage: 400 mg Frequency & Route: 1 po qd Medication: ribavirin Dosage: 200 mg tablet Frequency & Route: 1400 mg per day 12 week Pharmacy & Phone#: [facility] Insurance & Phone #: [place] [phone] ID #: [id number] Notes: waiting on response documented in this encounter Plan of Treatment Not on file documented as of this encounter Visit Diagnoses Not on filedocumented in this encounter Care Teams Log Scaler Relationship Specialty Start Date End Date Ashley Calixto MD [address] [place] [address] PCP - General 12/21/11 12/10/14 documented as of this encounter
--- OUTSIDE RECORDS SUMMARY | 2023-09-07 12:25 | XMS_ITS | Encounter Summary ---
Author Organization [facility] [place] [address] Care Team Providers Care Software Technician Name Role Phone Ashley Calixto MD Primary Care Provider [phone] Reason for Visit * Reason Comments Left Knee Pain Encounter Details Date Type Department Care Team (Late st Contact Info) Description 01/31/2012 8:40 AM EST [place] [address] Lj Braden MD [facility] [place] [address] Knee pain; Degenerative arthritis of knee Discharge Disposition: Home Social History [...] Sign Reading Time Taken Comments Blood Pressure 120/72 01/31/2012 8:35 AM EST Pulse 68 01/31/2012 8:35 AM EST Temperature - - Respiratory Rate 18 01/31/2012 8:35 AM EST Oxygen Saturation - - Inhaled Oxygen Concentration - - Weight 131.1 kg (289 lb 1.6 oz) 01/31/2012 8:35 AM EST Height 180.3 cm (5' 11) 01/31/2012 8:35 AM EST Body Mass Index 40.32 01/31/2012 8:35 AM EST documented in this encounter Progress Notes * Florencio Davenport PA - 01/31/2012 8:39 AM EST PATIENT NAME: Zack Langley AGE: 41 y.o. MR#: [id number] DATE OF VISIT: 01/31/2012 DATE OF SURGERY: 04/27/2011: LEFT KNEE ARTHROSCOPY/ MENISECTOMY AND MFC CHONDROPLASTY DATE OF INITIAL INJURY: DEC 2010 ( LIFTING 400LB PLANK ON UNEVEN GROUND AND FELT POP TO KNEE) STAFF: The patient was seen and the plan was formulated in conjunction with Dr. Braden. CHIEF COMPLAINT: left knee pain HISTORY OF PRESENT ILLNESS Mr. Langley a 41 y.o. year old male comes into clinic today for left knee pain. 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 He had persistent pain and swelling for months and then had an MRI of the knee showing a meniscal tear and underwent Menisectomy and MFC chondroplasty on 04/27/2011, by Dr. Fagan at [place]. He reports that the surgery helped a little, being able to kneel on the knee without pain. Now he reports constant behind the knee cap, which is different from prior to surgery. He has pain upon waking in the morning, and after sitting for and trying to get. Ifhe walks for a little while it improves the pain. He continues to have swelling, worse over the past 2 weeks, following increased activity with Thanksgiving. He does not have any locking or giving way. He is taking Celebrex 100 mg twice daily for the past 1.5 weeks which seems to help. He reports pain with walking down stairs and uneven ground or putting a lot weight on it. He has been going to PT twice a week for the past 4 months without much improvement of his pain. He has also had Synvisc injection twice with minimal improvement. He was seen by Angel Hardwick PA-C in October and is back for re-evaluation, due to ongoing pain. ROS: negative for fever, chills, chest pain, shortness of breath, nausea or vomiting. Physical Exam Blood pressure 120/72, pulse 68, resp. rate 18, height 180.3 cm (5' 11), weight 131.135 kg (289 lb1.6 oz). Constitutional: oriented to person, place, and time and well-developed, well- nourished, and in no distress. Skin: Skin is warm and dry. Right Knee Exam Comments: Comes in without antalgia. Mild effusion. The patient is tender over the medial and inferior pole of the patella as well as over the patellar tendon. ROM 120 deg flexion, 0 deg extension. Medial joint line tenderness. No lateral joint line tenderness Stable to varus/valgus stress. Negative Anterior/posterior drawer Neg Lachmans with a firm endpoint. Able to do a straight leg raise without lag. Normal sensation and motor function distally. Pain with a full squat and a single leg squat. RADIOLOGICAL STUDIES: I reviewed images of the left knee taken today, which included, Standing alignment, AP, Lateral, Schuss, [place] images, which showed Impression 1. Medial deviation mechanical axis bilaterally. 2. Mild osteoarthritis involving the medial compartment left knee and mild medial compartment joint space narrowing of the right knee. ASSESSMENT/PLAN: The patient was seen and the plan was formulated in conjunction with Dr. Braden. Zack Langley is a 41 y.o. male presents to the clinic with left knee with evidence of mild degenerativearthritic changes of the medial compartment and suspected synovitis of the knee. We reviewed with him his X-ray and exam findings. We discussed the ladder of therapy for knee pain, and where they are currently. We discussed starting with increased low-impact activity and continued home Physical Therapy for strengthening. We also discussed use of cortiscosteroid injections and hyaluronic acid. He has had Synvisc twice in the past with minimal relief. Lastly we discussed knee replacement surgery, and it indications, risks and benefits, but given his age and mild arthritis we agreed it would best that he try conservative measures prior to entertaining the thought of replacement surgery. He was agreeable to have a corticosteroid injection given which was done today in the office. Please see my procedure note below. Discussed with patient indications for prompt return or to call the clinic if they have any questions, otherwise they will follow-up PRN and with their PCP as scheduled. Procedure Note: I discussed the situation with the patient as well as the benefits and risks of intra-articular injection. We discussed infection, possible suppression of the adrenocortical axis, bleeding and pain. Zack Langley voiced understanding and male has given a consent for left knee injection. After sterile preparation of the skin with Hibiclens and DuraPrep, I injected 40 mg of Kenalog and 40 mL of 1% lidocaine without epinephrine into the patient's left knee joint via a lateral approach.No difficulty was encountered. A sterile dressing was applied. The patient will remove the dressing tomorrow morning and will hold off on any vigorous activity this afternoon. documented in this encounter Plan of Treatment Not on file documented as of this encounter Visit Diagnoses Diagnosis Knee pain Pain in joint, lower leg Degenerative arthritis of knee Osteoarthrosis, unspecified whether generalized or localized, lower leg documented in this encounter Administered Medications Inactive Administered Medications - up to 3 most recent administrations Medication Order MAR Action Action Date Dose Rate Site lidocaine (XYLOCAINE) 10 mg/mL (1 %) injection 40 mg 40 mg, Subcutaneous, ONCE, 1 dose, On Mon01/31/12 at 0945, Routine Given 01/31/2012 9:27 AM EST 40 mg triamcinolone acetonide (KENALOG-40) injection 40 mg 40 mg, Intra-articular, ONCE, 1 dose, On Mon01/31/12 at 0945, Routine Given 01/31/2012 9:28 AM EST 40 mg documented in this encounter Care Teams Software Technician Relationship Specialty Start Date End Date Ashley Calixto MD [facility] [address] [place] [address] PCP - General 12/21/11 12/10/14 documented as of this encounter
--- OUTSIDE RECORDS SUMMARY | 2023-09-07 12:25 | XMS_ITS | Encounter Summary ---
Author Organization [facility] Address [facility] [place] [address] Care Team Providers Care Combatant Diver Qualified Name Role Phone Ashley Calixto MD Primary Care Provider [phone] Encounter Details Date Type Department Care Team (Late st Contact Info) Description 09/18/2013 2:15 PM EDT - 09/18/2013 11:59 PM EDT Hospital Encounter XRay at [address] [place] [address] Left knee pain Social History Tobacco Use Types Packs/Day Years [...] KNEE DIAGNOSTIC 1 OR 2 VIEW Routine 09/18/2013 2:22 PM EDT Left knee pain documented in this encounter Results * XR [...] this encounter Visit Diagnoses Diagnosis Left knee pain Pain in joint, lower leg documented in this encounter Care Teams Combatant Diver Qualified Relationship Specialty Start Date End Date Ashley Calixto MD [address] [place] [address] PCP - General 12/21/11 12/10/14 documented as of this encounter
--- OUTSIDE RECORDS SUMMARY | 2023-09-07 12:25 | XMS_ITS | Encounter Summary ---
[place] [address] Care Team Providers Care Industry Consultant Name Role Phone Ashley Calixto MD Primary Care Provider [phone] Reason for Visit * Reason Comments Advice Only new pt work up Encounter Details Date Type Department Care Team (Late st Contact Info) Description 07/27/2012 12:45 PM EDT Office [place] [address] Danica Lopez MD [address] [place] [address] [place] [address] Hepatitis C (Primary Dx); Neurodermatitis; Abnormal laboratory test; Joint pain Discharge Disposition: Home Social History Tobacco Use [...] Sign Reading Time Taken Comments Blood Pressure 130/74 07/27/2012 12:58 PM EDT Pulse 106 07/27/2012 12:58 PM EDT Temperature 36.6 ??C (97.8 ??F) 07/27/2012 12:58 PM E DT Respiratory Rate - - Oxygen Saturation 98% 07/27/2012 12:58 PM EDT Inhaled Oxygen Concentration - - Weight 134.3 kg (296 lb) 07/27/2012 12:58 PM EDT Height 180.3 cm (5' 11) 07/27/2012 12:58 PM EDT Body Mass Index 41.28 07/27/2012 12:58 PM EDT documented in this encounter Progress Notes * Danica Lopez MD - 07/27/2012 1:58 PM EDT Zack Langley was seen in consultation at the request of Awilda Prakash, nurse practitioner, because of an abnormal lab test. The materials reviewed for this appointment include note in electronic medical record as well as notes and labs sent by Mr. Prakash. Zack Langley is a 42-year-old who reports that while in [employer] last year, during the summer, he developed a pneumonia. Although he had several negative PPDs, there was a suspicion either on his chest x-ray or because of the pneumonia that he may have tuberculosis and he was started on isoniazid in 08/2011. Three to four weeks into the course of treatment, he developed skin lesions that began as small, red pimples and expanded into shallow ulcers, then more deep ulcers with rolled borders. There were even some stellate-appearing lesions and those that were necrotic looking. He saw several dermatologists for this problem. Biopsies revealed, at first, lichen sclerosus chronicus and the second biopsy, done at [facility], showed only excoriation. Note is made that there were minimal eosinophils in the first biopsy. 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 Also associated with the skin rash, he began having joint pain primarily in the low back, but also the ankles, elbows, shoulders, and knees, though he has had arthroscopic surgery for a torn meniscus on the left. His ankle pain was associated with swelling. He denies fever, although he believes he did have a fever when he was given Augmentin for superinfection of his skin lesions. He has had nightly drenching sweats. He reports blurry vision as well as injection of the eyes and puffiness around the eyes. He did see ophthalmology pre-isoniazid, but did not see them after that. He denies mouth sores, but does note angular cheilitis. He had ear pain for 3-1/2 months which felt to him like he had a sore in the ear, but was treated for otitis media. He reports dark stools, dark urine, abdominal pain in the right upper quadrant, and peripheral edema. The patient's past medical history is notable for chronic hepatitis C. He had a liver biopsy demonstrating chronic hepatitis. He was treated with isoniazid for latent tuberculosis, though I am not certain of the details of that diagnosis. 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 He has a body mass index of 41. He has prediabetes. The patient's social history reveals that he lives with his girlfriend. She is expecting their second child. Family history reveals that his mother and father are . There is no relevant history. None of his siblings have tuberculosis or have been treated for latent TB. There is a history of alcoholism in his brothers and sisters, and cancer in his parents. Review of systems, except as noted above, are negative. BP 130/74 Pulse 106 Temp(Src) 36.6 ??C (97.8 ??F) (Oral) Ht 180.3 cm (5' 11) Wt 134.265 kg(296 lb) BMI 41.28 kg/m2 SpO2 98% PHYSICAL EXAMINATION: Zack Langley is a healthy-appearing large man, in no acute distress. His eyes are not injected, though he brings with him photos of his injected eyes. He has no oral lesions. He does have a husky, smoker's voice. He has no cervical or supraclavicular adenopathy. He does have fat deposition in the upper back and supraclavicular area as well as striae. He has no thyromegaly. His lungs are clear to auscultation. Cardiac exam reveals regular rate and rhythm without murmur. His abdomen is large with a liver that percusses less than 10 cm in the midclavicular line. He does not have percussible spleen. His abdomen is nontender including the right upper quadrant. He does have peripheral edema to the knees. Joint exam of the upper and lower extremities bilaterally reveals full range of motion without synovitis, deformity or tenderness with the exception of the left knee which has a small effusion and both ankles which do seem symmetrically swollen, though not tender. He has good peripheral pulses. His skin outside of the bland striae shows healing lesions on the arms, legs, abdomen, and face. There is a hyperpigmented area around a depigmented scar on most of them. His deep tendon reflexes are symmetrical. LABORATORY DATA: Laboratory tests sent from Mr. Prakash include a vitamin D low at 18.8, B12 of 845, rheumatoid factor of 41 with a negative CCP, sed rate of 20, negative Lyme titer, white blood count of 9.27 without eosinophilia, platelet count of 198,000, and a hemoglobin of 13.9. These were done on June 11. Note is made of negative cryoglobulins in the past, but I do not have confirmation of that. Liver function tests are included. He did see hepatology today and does have liver function tests as well as other labs ordered for today. My impression that Mr. Langley did indeed have an adverse drug reaction to isoniazid. There are certainly a number of adverse reactions that can occur with this drug including joint pain and a number of different skin lesions. At this point, there seems nothing further to do regarding his symptoms. In regards to his positive rheumatoid factor with negative CCP, this is classic for hepatitis C infection and is not concerning for rheumatoid arthritis. I did take the liberty of ordering an MONTY as isoniazid can cause a lupus-like reaction and I also ordered a QuantiFERON Gold. The patient was seen again on a p.r.n. Basis. Results for ZACK LANGLEY ( ) as of 08/05/2012 09:13 Ref. Range 07/27/2012 14:09 WBC Latest Range: [...] Neg Neg Quantiferon-TB Latest Range: Negative Positive documented in this encounter Plan of Treatment Not on file documented as of this encounter Procedures Procedure Name Priority Date/Time Associated Diagnosis Comments QUANTIFERON-TB GOLD Routine 07/27/2012 2 :09 PM EDT Joint pain MONTY ANTIBODY SCREEN Routine 07/27/2012 2 :09 PM EDT Joint pain documented in this encounter Results * QuantiFERON-TB Gold (07/27/2012 2:09 PM EDT) Quantiferon TB Positive Negative [facility] Comment: Nil (IU/mL)= 0.02 TB Ag minus Nil (IU/mL)= ??0.56 Mitogen minus Nil (IU/mL)= ??>10 M. tuberculosis (TB) infection likely ? A positive specimen should have a TB Ag minus Nil value greater than or equal to 0.35 IU/mL and in addition the TB Ag minus Nil value must be greater than or equal to 25% of the Nil value. ? A positive QuantiFERON-TB Gold IT result should be followed by further medical evaluation for active tuberculosis disease, (e.g., acid fast bacilli (AFB) smear and culture, chest x-ray). ? A positive QuantiFERON-TB Gold IT result can suggest and support the diagnosis of tuberculosis disease. ESAT-6, CFP-10 and TB7.7 are present in M. tuberculosis, but infections by other mycobacteria, including M. kansasii, M. szulgai, and M. marinum may also cause positive results. ?The performance of the QuantiFERON-TB Gold IT test has not been extensively evaluated with specimens from the following groups of individuals: ?1. Individuals who have impaired or altered immune function such as those who have HIV infection or AIDS, those who have transplantation managed with immunosuppressive treatment or others who receive immunosuppressive drugs (e.g., corticosteroids, methotrexate, azathioprine, cancer chemotherapy), and those who have other clinical conditions: diabetes, silicosis, chronic renal failure, hematological disorders (e.g., leukemia and lymphomas), and other specific malignancies (e.g., carcinoma of the head or neck and lung). ?2. Individuals younger than age 17 years. ?3. women. Note: Diagnosing or excluding tuberculosis disease, and assessing the probability of LTBI, require a combination of epidemiological, historical, medical, and diagnostic findings that should be taken into account when interpreting QuantiFERON-TB Gold results. Reference (http://www.cdc.gov/nchstp/tb/) Blood specimen (specimen) 07/27/2012 2:09 PM EDT 07/30/2012 8:26 AM EDT Narrative Resulting Agency Comment Spec In Lab Danica Lopez MD CHEMISTRY ORDERABLES Performing Organization Address [facility] de Phone Number CERJERE KNAPPENNIUM * MONTY (07/27/2012 2:09 PM EDT) MONTY Neg Neg CERNER MILLENNIUM Blood specimen (specimen) 07/27/2012 2:09 PM EDT 07/30/2012 8:26 AM EDT Narrative Resulting Agency Comment Spec In Lab Danica Lopez MD IMMUNOLOGY ORDERABLE S Performing Organization Address [facility] Co de Phone Number RANDY MORALES documented in this encounter Visit Diagnoses Diagnosis Hepatitis C- Primary Unspecified viral hepatitis C without hepatic coma Neurodermatitis Lichenification and lichen simplex chronicus Abnormal laboratory test Other abnormal clinical finding Joint pain Pain in joint, site unspecified documented in this encounter Care Teams Industry Consultant Relationship Specialty Start Date End Date Ashley Calixto MD [address] [place] [address] PCP - General 12/21/11 12/10/14 documented as of this encounter
--- OUTSIDE RECORDS SUMMARY | 2023-09-07 12:25 | XMS_ITS | Encounter Summary ---
Author Organization [facility] Address [facility] [place] [address] Care Team Providers Care Gift Wrapper Name Role Phone Ashley Calixto MD Primary Care Provider [phone] Encounter Details Date Type Department Care Team (Late st Contact Info) Description 11/12/2012 2:48 PM EDT - 11/12/2012 11:59 PM EDT Hospital Encounter XRay at [address] [place] [address] CLINIC, Michelle Montalvo MD [facility] [place] [address] LTBI (latent tuberculosis infection) Discharge Disposition: Home Social History Tobacco Use [...] Name Priority Date/Time Associated Diagnosis Comments XR CHEST PA AND LATERAL Routine 11/12/2012 3:24 PM EDT LTBI (latent tuberculosis infection) documented in this encounter Results * XR chest routine [...] encounter Visit Diagnoses Diagnosis LTBI (latent tuberculosis infection) Nonspecific reaction to tuberculin skin test without active tuberculosis documented in this encounter Care Teams Gift Wrapper Relationship Specialty Start Date End Date Ashley Calixto MD [facility] [address] [place] [address] PCP - General 12/21/11 12/10/14 documented as of this encounter
--- OUTSIDE RECORDS SUMMARY | 2023-09-07 12:26 | XMS_ITS | Encounter Summary ---
Author Organization [facility] [place] [address] Care Team Providers Care Coating Mixer Supervisor Name Role Phone Awilda Prakash APRN Primary Care Provider [phone] Encounter Details Date Type Department Care Team (Late st Contact Info) Description 01/03/2011 [place] [address] Lj Braden MD [facility] [place] [address] Social History Tobacco Use Types Packs/Day Years Used Date Smoking Tobacco: Never Assessed Sex and Gender Information Value Date Recorded Sex Assigned at Not on file Gender Identity Not on file Sexual Orientation Not on file documented as of this encounter Plan of Treatment Not on file documented as of this encounter Procedures Procedure Name Priority Date/Time Associated Diagnosis Comments FILM LIBRARY STORAGE ONLY DX KNEE Routine 01/03/2011 2:40 PM EST documented in this encounter Results * FILM LIBRARY- STORAGE ONLY DX KNEE (01/03/2011 2:40 PM EST) 01/03/2011 2:40 PM EST Narrative RAD - 09/10/2013 10:34 AM EDT This is a non-reportable exam. Procedure Note Florencio Pereira - 09/10/2013 This is a non-reportable exam. Lj Braden MD IM FILM LIBRARY ORD ERABLES RAD [address] [place] [address] documented in this encounter Visit Diagnoses Not on filedocumented in this encounter Care Teams Coating Mixer Supervisor Relationship Specialty Start Date End Date Awilda Prakash APRN PCP - General 08/25/11 12/20/11 documented as of this encounter
--- OUTSIDE RECORDS SUMMARY | 2023-09-07 12:26 | XMS_ITS | Encounter Summary ---
Author Organization [facility] Address [facility] [place] [address] Care Team Providers Care Nurse Practitioner Manager Name Role Phone Awilda Prakash APRN Primary Care Provider [phone] Encounter Details Date Type Department Care Team (Late st Contact Info) Description 11/07/2011 9:40 AM EDT - 11/07/2011 11:59 PM EDT Hospital Encounter XRay at [address] [place] [address] Social History Tobacco Use Types Packs/Day Years Used Date Smoking Tobacco: Every Day Cigarettes 1 25 Comments:working on quitting ; currently down to 3/4 ppd Alcohol Use Standard Drinks/Week Comments Yes 0 (1 standard drink = 0.6 oz pure alcohol) 2 beers q 2 months. Hx of heavy ETOH x 3 years 12 pack daily. Sex and Gender Information Value Date Recorded Sex Assigned at Not on file Gender Identity Not on file Sexual Orientation Not on file documented as of this encounter Medications at Time of Discharge Medication Sig Dispensed Refills Start Date End Date pravastatin (PRAVACHOL) 20 mg tablet Take 20 mg by mouth daily. ipratropium-albutero l (DUONEB) 0.5 mg-3 mg(2.5 mg base)/3 mL nebulizer solution Take 3 mLs by nebulization 4 times daily. 05/24/2012 fluticasone (FLOVENT) 220 mcg/actuation inhaler Inhale 1 puff into the lungs 2 times daily as needed. 04/02/2013 FLUoxetine (PROZAC) 10 mg capsule Take 10 mg by mouth daily. 06/22/2012 nicotine (NICODERM CQ) 21 mg/[address] 1 patch onto the skin every 24 hours. 05/24/2012 hydrOXYzine (ATARAX) 50 mg tablet Take 50 mg by mouth 3 times daily as needed. 3 doxycycline (VIBRAMYCIN) 100 mg capsuleIndications:F olliculitis Take 1 capsule by mouth 2 times daily. Take with food, avoid calcium within 1 hour of taking, may cause sunburn 60 capsule 2 10/28/2011 06/22/2012 buprenorphine-naloxo ne (SUBOXONE) 8-[address] 2 tablets [...] on filedocumented in this encounter Care Teams Nurse Practitioner Manager Relationship Specialty Start Date End Date Awilda Prakash APRN PCP - General 08/25/11 12/20/11 documented as of this encounter
--- OUTSIDE RECORDS SUMMARY | 2023-09-07 12:26 | XMS_ITS | Encounter Summary ---
Author Organization [facility] Address [facility] [place] [address] Care Team Providers Care Rodeo Clown Name Role Phone Awilda Prakash APRN Primary Care Provider [phone] Encounter Details Date Type Department Care Team (Late st Contact Info) Description 11/07/2011 9:39 AM EDT Hospital Encounter XRay at [address] [place] [address] Knee pain Social History Tobacco Use Types Packs/Day [...] Name Priority Date/Time Associated Diagnosis Comments XR JOINT TEAM ALIGNMENT AP LAT SCHUSS SKYLINE Routine 11/07/2011 10:05 AM EDT Knee pain documented in this encounter Results * XR JOINT TEAM ALIGNMENT AP LAT SCHUSS SKYLINE (11/07/2011 10:05 AM EDT) Anatomical Region Laterality Modality N/A Radiographic Pamela ging 11/07/2011 10:0 5 AM EDT Narrative 11/07/2011 4:33 PM EDT Examination JOINT TEAM STANDING ALIGNMENT AP LAT SCHUSS SKYLINE/LEFT Clinical History S/P MENISC REP 03/2011,LT KNEE Comparison Left knee x-rays 01/03/2011, left knee MRI 03/02/2011. Technique Separate images of the pelvis, knees and feet were acquired in the AP projection with the patient standing. In addition to routine views of the knee, these images were stitched together to form a composite image of the pelvis and legs allowing for evaluation of lower extremity alignment in the weight bearing position. AP standing alignment, 4 views left knee, 3 views right knee. Findings AP standing alignment: ??Approximately 3.1 cm medial deviation of the mechanical axis bilaterally. Bilateral knees: ??Moderate medial compartment joint space narrowing on the left which is accentuated on the standing flexion view. Mild medial compartment joint space narrowing of the right. There are tiny marginal osteophytes at the medial compartment of the left knee. No significant left knee joint effusion. ?? No fracture is identified. ??No significant patellar tilt or subluxation on the sunrise view. Impression ? 1. Medial deviation mechanical axis bilaterally. ? 2. Mild osteoarthritis involving the medial compartment left knee and mild medial compartment joint space narrowing of the right knee. Procedure Note Viktor Zuniga MD - 11/07/2011 Examination JOINT TEAM STANDING ALIGNMENT AP LAT SCHUSS SKYLINE/LEFT Clinical History S/P MENISC REP 03/2011,LT KNEE Comparison Left knee x-rays 01/03/2011, left knee MRI 03/02/2011. Technique Separate images of the pelvis, knees and feet were acquired in the AP projection with the patient standing. In addition to routine views of theknee, these images were stitched together to form a composite image of thepelvis and legs allowing for evaluation of lower extremity alignment in the weightbearing position. AP standing alignment, 4 views left knee, 3 views right knee. Findings AP standing alignment: Approximately 3.1 cm medial deviation of themechanical axis bilaterally. Bilateral knees: Moderate medial compartment joint space narrowing on theleft which is accentuated on the standing flexion view. Mild medial compartment joint space narrowing of the right. There are tiny marginal osteophytes atthe medial compartment of the left knee. No significant left knee jointeffusion. No fracture is identified. No significant patellar tilt or subluxation onthe sunrise view. Impression 1. Medial deviation mechanical axis bilaterally. 2. Mild osteoarthritis involving the medial compartment left knee andmild medial compartment joint space narrowing of the right knee. Lj Braden MD IMG DX ORDERABLES documented in this encounter Visit Diagnoses Diagnosis Knee pain Pain in joint, lower leg documented in this encounter Care Teams Rodeo Clown Relationship Specialty Start Date End Date Awilda Prakash APRN PCP - General 08/25/11 12/20/11 documented as of this encounter
--- OUTSIDE RECORDS SUMMARY | 2023-09-07 12:26 | XMS_ITS | Encounter Summary ---
Author Organization [facility] Address [facility] [place] [address] Care Team Providers Care Remediation Bioanalytics Consultant Name Role Phone Awilda Prakash APRN Primary Care Provider [phone] Encounter Details Date Type Department Care Team (Late st Contact Info) Description 10/29/2011 External Results XRay at [address] [place] [address] Mihir Dee APRN [address] [place] [address] Social History Tobacco Use Types Packs/Day Years Used Date Smoking Tobacco: Every Day Cigarettes 2 25 Comments:working on quitting ; currently down [...] Procedure Name Priority Date/Time Associated Diagnosis Comments MRI/MRA SCAN Routine 03/02/2011 DIAGNOSTIC RADIOLOGY SCAN Routine 01/03/2011 documented in this encounter Results * Scan Doc: MRI/MRA (03/02/2011) Anatomical Region Laterality Modality Other Mihir Dee APRN MEDIA MGR SCAN EX T ORDR/RSLT * Scan Doc: Diagnostic Radiology (01/03/2011) Anatomical Region Laterality Modality Other Dmitriy Youssef MD MEDIA MGR SCAN EXT O RDR/RSLT documented in this encounter Visit Diagnoses Not on filedocumented in this encounter Care Teams Remediation Bioanalytics Consultant Relationship Specialty Start Date End Date Awilda Prakash, ROSAURA PCP - General 08/25/11 12/20/11 documented as of this encounter
--- OUTSIDE RECORDS SUMMARY | 2023-09-07 12:26 | XMS_ITS | Encounter Summary ---
Author Organization [facility] [place] [address] Care Team Providers Care Shear Grinder Operator Name Role Phone DwainAwilda Mo KAPLAN Primary Care Provider [phone] Reason for Visit * Reason Comments GI Problem Encounter Details Date Type Department Care Team (Late st Contact Info) Description 11/11/2011 1:00 PM EDT [place] [id number] CLINIC, Patience Garzon [facility] [place] [address] Chronic hepatitis C without mention of hepatic coma (Primary Dx) Discharge Disposition: Home Social History [...] Sign Reading Time Taken Comments Blood Pressure 139/71 11/11/2011 1:14 PM EDT Pulse 77 11/11/2011 1:14 PM EDT Temperature - - Respiratory Rate - - Oxygen Saturation - - Inhaled Oxygen Concentration - - Weight 122.5 kg (270 lb) 11/11/2011 1:14 PM EDT Height 180.3 cm (5' 11) 11/11/2011 1:14 PM EDT Body Mass Index 37.66 11/11/2011 1:14 PM EDT documented in this encounter Progress Notes * Patience Whitman, PRODUCT SAFETY OFFICER - 11/11/2011 4:22 PM EDT Subjective: Patient ID: Zack Langley is a 41 y.o. male. GI Problem The primary symptoms include rash (hyperpigmented lesions with erythematous base on BLE). Primary symptoms do not include fever, fatigue, abdominal pain, nausea, vomiting, diarrhea or arthralgias. The illness does not include chills or constipation. Mr. Langley is a pleasant 41 year old white male who was seen today at [facility] in follow-up for hepatitis C. He was only recently told that he had hepatitis C, but he tells me today that apparently he tested positive in 2007. He has risk factors for HCV dating back to to 1986 when hestarted using intranasal drugs. 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 He had 2 tattoos placed in custodial in 1989 then in 1999. He has [...] he was diabetic and started on metformin. ipratropium-albuterol (DUONEB) 0.5 mg-3 mg(2.5 mg base)/3 mL nebulizer solution; fluticasone (FLOVENT) 220 mcg/actuation inhaler; FLUoxetine (PROZAC) 10 mg capsule; nicotine (NICODERM CQ) 21 mg/24 hr; pravastatin (PRAVACHOL) 20 mg tablet; hydrOXYzine (ATARAX) 50 mg tablet; doxycycline (VIBRAMYCIN) 100 mg capsule; buprenorphine-naloxone (SUBOXONE) 8-2 mg Subl; metFORMIN (GLUCOPHAGE) 500 mg tablet;fluvoxamine (LUVOX) 100 mg tablet traZODone (DESYREL) 50 mg tablet No Known Allergies Outside Labs 09/05/11: HCV genotype 2 Viral load 266,000 Cryoglobulins negative T. Bili 0.14 AST 32 ALT 70 HgA1c 6.2 Review of Systems Constitutional: Negative for fever, [...] rales. Abdominal: Soft. Bowel sounds are normal. No tenderness. Musculoskeletal: He exhibits edema (1+ pitting). Lymphadenopathy: He has no cervical adenopathy. Neurological: He is alert and oriented to person, place, and time. Skin: Skin is warm and dry. Rash (hyperpigmented lesions on BLE with erythematous base; mild erytematous papules on forearm) noted. Palmar erythema Single spider angioma on chest Psychiatric: He has a normal mood and affect. His behavior is normal. Assessment and Plan: Mr. Langley is a pleasant 41 year old white male seen in consultation today for hepatitis C, genotype 2. He has risk factors for hepatitis C dating back 20-25 years. He has been clean since February 2011 at which time he was started on suboxone. He has newly diagnosed borderline diabetes and recently started on metformin. I advised that diabetes and obesity can contribute to steatohepatitis and fibrosis of liver. Explained that it would bein his best interest to lose 10% of his body weight, which might be enough for him to be able to discontinue the metformin. In order to optimize HCV treatment he should be at a healthier weight and BMI. I also explained that he should abstain from ETOH as there is no known safe limit in the settingof HCV, especially since we do not know the staging of liver fibrosis. I encouraged him to finish the Hepatitis A and B vaccine series through his PCP's office. Because he has risk factors for viral acquisition dating back at least 20 years, will proceed with liver biopsy to determine extent of liver fibrosis. Will initiate referral to Bing Borrero APRN for education and treatment of hepatitis C. In the meantime he will have a dilated eye exam locally. He will also have his substance abuse counselor provide written documentation that pt is safe and stableto proceed with HCV treatment. All of his questions were answered. He verbalized understanding and agreement to the plan of care. documented in this encounter Plan of Treatment Not on file documented as of this encounter Visit Diagnoses Diagnosis Chronic hepatitis C without mention of hepatic coma- Primary documented in this encounter Care Teams Shear Grinder Operator Relationship Specialty Start Date End Date Awilda Prakash APRN PCP - General 08/25/11 12/20/11 documented as of this encounter
--- OUTSIDE RECORDS SUMMARY | 2023-09-07 12:26 | XMS_ITS | Encounter Summary ---
Author Organization [facility] Address [facility] [place] [address] Care Team Providers Care Cell Pourer Name Role Phone DwainAwilda pina Mo KAPLAN Primary Care Provider [phone] Encounter Details Date Type Department Care Team (Late st Contact Info) Description 11/15/2011 [place] [address] Bridgett Gar MD [facility] [place] [address] Hep C w/o coma, chronic (Primary Dx) Social History Tobacco Use Types [...] documented as of this encounter Results * IR all biopsy procedures (11/22/2011 11:19 AM EDT) Anatomical Region Laterality Modality X-Ray Angiograph y 11/22/2011 11:1 9 AM EDT Narrative 11/23/2011 7:48 PM EDT ?VIR ?? PROCEDURE NOTE ?Procedure: ?? Ultrasound guided liver biopsy. ? ACC#: ?? [id number] ?Indication ?? for Procedure: Hepatitis C, tissue sample ?? needed for viral load. ?Procedure ?? events and findings:After ?? obtaining informed consent, patient was positionedsupine. ?? Initial localizing scan obtained. A site for bx was ?? chosen and identified on the skin. The skin was marked, prepped, and local ?? anesthesia provided with 1% lidocaine. Maximum ?? sterile barrier technique was used throughout. Due to the painful nature of ?? the procedure, patient received split doses of intravenous fentanyl and ?? versed from the IR nurse while pulse, pressure, and oxygen saturation were ?? continuously monitored. ?A16ga ?? coaxial needle was directed into the liver with U/S guidance from a right ?? lateral approach. Six 18ga core bxs were obtained. ?Post ?? biopsy scan was performed with no evidence of hematoma or (with color ?? Doppler) active hemorrhage. ?Medications: ?? Fentanyl 150 mcg IV, Versed 3 mg IV ?Contrast: ?? None. ?Fluoro ?? Dose: None. ?Est Blood Loss: ?? <10cc. ?Complications: ?? No immediate ?Impression: ?1. ?? Ultrasound guided liver biopsy obtained with five 18 Ga cores sent to ?? Pathology. ?2. ?? Post biopsy scan with no evidence of hematoma or (with color Doppler) active ?? hemorrhage. ?Fellow:Lili, ?? Ashok WEBSTER ?Attending: ?? Dr. César Yancey, I was present throughout this procedure. ? ; ?? {CR} ? ; ?? {CR} ? ; ?? {CR} ? ; ?? {CR} ? ; ?? {CR} ? Film and interpretation reviewed by the attending Procedure Note César Yancey MD - 11/23/2011 VIR PROCEDURE NOTE Procedure: Ultrasound guided liverbiopsy. ACC#: [id number] Indication for Procedure: Hepatitis C, tissue sample needed for viral load. Procedure events and findings:Afterobtaining informed consent, patient was positionedsupine. Initial localizing scan obtained. A site for bx was chosen and identified on the skin. The skinwas marked, prepped, and local anesthesia provided with 1% lidocaine.Maximum sterile barrier technique was used throughout. Due to the painful natureof the procedure, patient received split doses of intravenous fentanyl and versed from the IR nurse while pulse, pressure, and oxygen saturation were continuously monitored. A16ga coaxial needle was directed into theliver with U/S guidance from a right lateral approach. Six 18ga core bxs were obtained. Post biopsy scan was performed with no evidence of hematomaor (with color Doppler) active hemorrhage. Medications: Fentanyl 150mcg IV, Versed 3 mg IV Contrast: None. Fluoro Dose: None. EstBlood Loss: <10cc. Complications: No immediate Impression: 1. Ultrasound guided liver biopsy obtained with five 18 Ga cores sent to Pathology. 2. Post biopsy scan with no evidence of hematoma or (withcolor Doppler) active hemorrhage. Fellow:Ashok Pearson MD Attending:Dr. César Yancey, I was present throughout this procedure. ; {CR} ; {CR} ; {CR} ; {CR} ; {CR} Film and interpretation reviewed by the attending Bridgett Gar MD IMG IR ORDERABLES documented in this encounter Visit Diagnoses Diagnosis Hep C w/o coma, chronic- Primary Chronic hepatitis C without mention of hepatic coma Hepatitis C Unspecified viral hepatitis C without hepatic coma Hep C w/o coma, chronic Chronic hepatitis C without mention of hepatic coma documented in this encounter Care Teams Cell Pourer Relationship Specialty Start Date End Date Awilda Prakash APRN PCP - General 08/25/11 12/20/11 documented as of this encounter
--- OUTSIDE RECORDS SUMMARY | 2023-09-07 12:26 | XMS_ITS | Encounter Summary ---
Author Organization [facility] [place] [address] Care Team Providers Care Patient Biller Name Role Phone Dwain Yeyoalyce Mo KAPLAN Primary Care Provider [phone] Encounter Details Date Type Department Care Team (Late st Contact Info) Description 10/28/2011 Orders [place] [address] Lj Braden MD [facility] [place] [address] Knee pain (Primary Dx) Social History Tobacco Use [...] as of this encounter Results * XR JOINT TEAM [...] in this encounter Visit Diagnoses Diagnosis Knee pain- Primary Pain in joint, lower leg Knee pain Pain in joint, lower leg documented in this encounter Care Teams Patient Biller Relationship Specialty Start Date End Date Awilda Prakash, ROSAURA PCP - General 08/25/11 12/20/11 documented as of this encounter
--- OUTSIDE RECORDS SUMMARY | 2023-09-07 12:26 | XMS_ITS | Encounter Summary ---
Author Organization [facility] [place] [address] Care Team Providers Care Net Developer With Wcf Name Role Phone Ashley Calixto MD Primary Care Provider [phone] Reason for Visit * Reason Comments Hepatitis C Encounter Details Date Type Department Care Team ([facility] st Contact Info) Description 12/23/2011 3:30 PM EDT [place] [address] Rebecca Borrero, ROSAURA [facility] [place] [address] Chronic hepatitis C (Primary Dx) Discharge Disposition: [...] Sign Reading Time Taken Comments Blood Pressure 146/70 12/23/2011 3:28 PM EDT Pulse 93 12/23/2011 3:28 PM EDT Temperature - - Respiratory Rate 20 12/23/2011 3:28 PM EDT Oxygen Saturation - - Inhaled Oxygen Concentration - - Weight - - Height 180.3 cm (5' 11) 12/23/2011 3:28 PM EDT Body Mass Index - - documented in this encounter Progress Notes * Rebecca Borrero APRN - 12/23/2011 3:51 PM EDT Subjective: Patient ID: Zack Langley is a 41 y.o. male. HPI CURRENT PROBLEM LIST: 1.) Chronic Hepatitis C Genotype: 2 Liver biopsy:(10/2011) G1-2 S 0-1 Prior treatment history: naive PREVENTATIVE HEALTH: Hepatitis A: in process Hepatitis B: in process EGD: n/a Colonoscopy:n/a HIV status: last checked 2010 neg PRETREATMENT ASSESSMENTS: Eye exam: 11/2011 neg EKG: not done yet Drug interactions: na Psych: seeing treatment associates on suboxone control method: CURRENT HCV TREATMENT: Start Date: Initial medications: Pegasys mcg / mg Ribavirin Dose reductions/ escalations: Completed tx week/ planned duration of tx:0/48 IFN dose day: Significant side effects: / baseline / week 4 / week 8 / week 12 / week 24 Review of Systems Objective: Physical Exam Assessment and Plan: Mr. Langley is a 41 year old male with hepatitis C genotype 2 with very mild disease on liver biopsy. He and his are currently trying to get , due to the ribavirin classification he cannot be treated while attempting to have another child. However I have reassured Zack and his that his disease is quite treatable and he has mild disease and waiting another year before treatment will not have an impact on his disease state. He is encouraged to try and loose some weight in preparation for the treatment. 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 documented in this encounter Plan of Treatment Not on file documented as of this encounter Visit Diagnoses Diagnosis Chronic hepatitis C- Primary Chronic hepatitis C without mention of hepatic coma documented in this encounter Care Teams Net Developer With Wcf Relationship Specialty Start Date End Date Ashley Calixto MD [address] [place] [address] PCP - General 12/21/11 12/10/14 documented as of this encounter
--- OUTSIDE RECORDS SUMMARY | 2023-09-07 12:26 | XMS_ITS | Encounter Summary ---
Author Organization [facility] [place] [address] Care Team Providers Care Manager Call Center Name Role Phone Awilda Prakash Mo KAPLAN Primary Care Provider [phone] Reason for Referral * Physical Therapy (Routine) - Complete - Patient Will Schedule External Appt Specialty Diagnoses / Procedures Referred By Casey t Referred To Contact Physical Therapy Diagnoses Knee pain Lj Braden MD [facility] [place]OPAED[place] [address] Referral ID Status Reason Start Date Expiration Date Visits Requested Visits Authorized [id number] Complete - Patient Will Schedule External Appt Evaluate and Treat 11/07/2011 05/05/2012 15 15 Reason for Visit * Reason Comments Left Knee Pain second opinion worke rs comp DOI 12/30/10 Encounter Details Date Type Department Care Team (Late st Contact Info) Description 11/07/2011 10:40 AM EDT Office [place] [address] Lj Braden MD [facility] ORTHOPAED[place] [address] Knee pain (Primary Dx) Discharge Disposition: Home [...] Sign Reading Time Taken Comments Blood Pressure 144/98 11/07/2011 10:59 AM EDT Pulse - - Temperature - - Respiratory Rate - - Oxygen Saturation - - Inhaled Oxygen Concentration - - Weight 124.3 kg (274 lb 1.6 oz) 012 10:59 AM EDT Height 180.3 cm (5' 11) 11/07/2011 10: 59 AM EDT Body Mass Index 38.23 11/07/2011 10:59 AM EDT documented in this encounter Progress Notes * Oscar Montenegro - 11/07/2011 11:16 AM EDT Subjective: DATE OF SURGERY: 04/27/2011: LEFT KNEE ARTHROSCOPY/ MENISECTOMY AND C CHONDROPLASTY DATE OF INITIAL INJURY: DEC 2010 ( LIFTING 400LB PLANK ON UNEVEN GROUND AND FELT POP TO KNEE) Patient ID: Zack Langley is a 41 y.o. male. HPI This is a 41yo male here for left knee pain. Patient is now 6 months post surgery. Patient is referred from Dr. Avelar. Has noticed pain with walking stairs, kneeling and squatting. Kneeling issome better. But now there is sharp pain after walking more than one block. The pain is more localized to medial side. Sleep is difficulty at times. Walking over 5-10 minutes over uneven ground is painfull. Stationary bike feels fine. Had some therapy initially. Started on Celebrex last week. The knee cap tenderness has improved. 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 ETOH/ some with 4 children. FMHx: Cancer and heart disease ROS Objective: Physical Exam Ortho Exam Neurologic Exam XRAYS; MEDIAL COMPARTMENT NARROWING OUTSIDE MRI; MEDIAL NARROWING, MENISCAL TEAR AND BONE EDEMA Assessment and Plan: Left knee pain/osteoarthritis Size nine shoe. documented in this encounter Procedure Notes * Provider, Scanning - 12/02/2013 10:17 AM EDTAssociated Order(s): SCAN DOC: LAB documented in this encounter Miscellaneous Notes * Miscellaneous - Carlos Enrique, Equine Manager - 11/09/2011 11:48 AM EDT documented in this encounter Plan of Treatment Scheduled Referrals Name Type Priority Associated Diagnoses Orde r Schedule REFERRAL TO PHYSICAL THERAPY Outpatient Referral Routine Knee pain Ordered: 11/07/2011 documented as of this encounter Procedures Procedure Name Priority Date/Time Associated Diagnosis Comments LAB SCAN 12/02/2013 10:17 AM EDT documented in this encounter Results * SCAN DOC: LAB (12/02/2013 10:17 AM EDT) Narrative 12/02/2013 10:17 AM EDT Procedure Note Provider, Scanning - 12/02/2013 10:17 AM EDT Scanning Provider MEDIA MGR SCAN EXT O RDR/RSLT documented in this encounter Visit Diagnoses Diagnosis Knee pain- Primary Pain in joint, lower leg documented in this encounter Care Teams Manager Call Center Relationship Specialty Start Date End Date Awilda Prakash APRN PCP - General 08/25/11 12/20/11 documented as of this encounter
--- OUTSIDE RECORDS SUMMARY | 2023-09-07 12:26 | XMS_ITS | Encounter Summary ---
Author Organization [facility] [place] [address] Care Team Providers Care Pharmacy Customer Care Specialist Name Role Phone Awilad Prakash APRN Primary Care Provider [phone] Encounter Details Date Type Department Care Team (Late st Contact Info) Description 10/28/2011 Orders Only [place] [address] Lj Braden MD [facility] [place] [address] Social History Tobacco Use Types Packs/Day Years [...] on filedocumented in this encounter Care Teams Pharmacy Customer Care Specialist Relationship Specialty Start Date End Date Awilda Prakash APRN PCP - General 08/25/11 12/20/11 documented as of this encounter
--- OUTSIDE RECORDS SUMMARY | 2023-09-07 12:26 | XMS_ITS | Encounter Summary ---
Author Organization [facility] Address [facility] [place] [place] [address] Care Team Providers Care Recycling Program Manager Name Role Phone Awilda Prakash ROSAURA Primary Care Provider [phone] Reason for Visit * Reason Comments Dermatitis Encounter Details Date Type Department Care Team (Late st Contact Info) Description 10/28/2011 2:10 PM EDT [place] [address] Geri Trevino MD [facility] DR L[place] [address] Folliculitis (Primary Dx); Rash Discharge Disposition: Home Social [...] as of this encounter Progress Notes * Mihir Zapata MD - 10/29/2011 7:32 AM EDT I directly supervised Dr. Trevino during this [...] Trevino's note. * Geri Trevino MD - 10/28/2011 2:28 PM EDT DERMATOLOGY - NEW PATIENT NOTE Kaley Langley Date of service: 10/28/2011 : 1970 Dermatology Resident Note: Geri Trevino MD Chief Problem: Rash Mr. Kaley Langley is a 41 y.o. male. This is a new patient to me. Seen in consultation at the request of Awilda Prakash specifically for the evaluation and management of the above problem. HPI: Mr. Langley presents for a chronic pruritic rash since last March. It consists of red ithcy spots that started on his legs and has progressed to involve his entire body. He thinks this relates to working with chemicals. Methylene chloride was the main chemical that was around an open flame - he t hinks the gas was also exposed to as he has had trouble with his lungs. They start out looking likesmall red bumps with bubbles and pus and they eventually turn to black crusted papules. They bleed when he scratches them and admits that he frequently scratches them. His head neck, upper chest, groin, and back are mostly spared. Steroid creams, oral antihistamines,and topical antifungals without much help. He also had 5 days of an oral antibiotic, he is unsure which one. He is currently on oral prednisone, day 3. He did 60 mg for 3 days, and now he is on 40 mgdaily. This has helped his itchiness but not the rash much. Denies personal or family history of allergies/hayfever. Denies childhood eczema. Many documents of past notes from PCP and treatments tried reviewed, will scan into [facility]. 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 buprenorphine-naloxone (SUBOXONE) 8-[address] 2 tablets under the tongue daily. ??? metFORMIN (GLUCOPHAGE) 500 mg tablet Take 500 mg by mouth 2 times daily (with meals). ??? fluvoxamine (LUVOX) 100 mg tablet Take 100 mg by mouth nightly. ??? traZODone (DESYREL) 50 mg tablet Take 50 mg by mouth nightly. 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 Skin: A full skin examination was performed. This includes the head, neck, face and scalp includingbehind the ears. The chest, abdomen, back, and axillae, as well as the arms, hands, palms, fingers.Legs, feet, toes and soles were also examined. [facility] and [facility] Genitalia were not examined. Specific skin findings: 1. Multiple excoriated erythematous papules and nodules, many with heme crust Past [facility] Sparse perivacsular dermatitis with epidermal hyperplasia and ulceration, consistent with LSC Epidermal hyperplasia with hyperkeratosis and erythrocyte extravasation Diagnosis/Assessment/Treatment Plan: 1. Rash: differential includes folliculitis vs perforating dermatosis vs PLEVA. Discussed most likely diagnosis with patient and counseled that there is no definitive test to prove or dispel an association with methylene chloride. Counseled that skin findings with exposures to solvents are usually irritant dermatitides which would have resolved at this time. Will try a trial of oral doxycycline 100 mg po BID for one month and assess response to therapy. Recommended finishing out current prednisone taper in the meantime. Discussed importance of trying not to pick at the lesions, which makes inflammation worse. As PLEVA is in the differential, will consider checking CBC in one month if not improved clinically. Patient voiced understanding and agrees with plan. Recommended punch biopsy to better define diagnosis. The patient agreed to the procedure after discussing risks/benefits/alternatives. Procedure: Skin biopsy by punch technique. Location: left inner thigh/medial knee Discussed indications for the procedure and expectations including risks and benefits. Verbal consent obtained. Skin prep with alcohol. Local anesthesia: buffered 1% lidocaine with 1/100,000 epinephrine. A 4 mm punch biopsy to the level of the subcutis was performed. Wound closed with monofilament suture. There were no complications; the patient tolerated the procedure well. The wound was dressed. Post-procedure expectations (including discomfort management), wound care and activity restrictions were reviewed. Follow-up based on pathology results. Suture removal: 10-14 days Rx: doxycycline 100 mg po BID. Take with food, avoid calcium or iron supplements within 1 hour of taking medication, may cause RTC in 4-6 weeks. Instructed to call for questions, concerns. Geri Trevino MD Resident in Dermatology [facility] Patient seen and evaluated with staff project landscape architect: Mihir Zapata MD Section of Dermatology [facility] Copy of note faxed to PCP, Dr. Awilda Prakash documented in this encounter Plan of Treatment Not on file documented as of this encounter Procedures Procedure Name Priority Date/Time Associated Diagnosis Comments SURGICAL PATHOLOGY REPORT Routine 10/28/2011 4:18 PM EDT SPECIMEN TO PATHOLOGY (NON-OR) Routine 10/28/2011 2:36 PM EDT Folliculitis documented in this encounter Results * SURGICAL PATHOLOGY REPORT (10/28/2011 4:18 PM EDT) Surgical Pathology Report ? [facility] ? Provider: ?? GERI TREVINO ? Pt. Name: ?? KALEY LANGLEY ? Acc #: ?[id number] ? Pt. ? Col Date: ?? 10/28/2011 ? /Sex: ?1970,(41 years),Male ? Rec Date: ?? 10/28/2011 ? LOC: ?4M ? SURGICAL PATHOLOGY ? ---Pathologic Diagnosis--- ? Skin, left inner lateral knee, punch biopsy: ? Excoriation and crust with acute inflammation with scattered ? eosinophils (see Comment). ? Dictated by: ??Toya Ovalle MD ? Dermatopathology Fellow ? As the attending physician, I attest that I examined the histologic slides, ? and confirm Dr. Toya Ovalle's diagnosis. ? 11/01/11 ? [facility] ? 11/02/11 Verified by: ? Eron WEBSTER, Naye B ? Dermatopathologist ? (Electronic Signature) ? The attending pathologist whose signature appears on this report has ? reviewed all diagnostic slides and has edited the gross and/or ? microscopic portion of the report in rendering the final pathologic ? diagnosis. ? ---Comment--- ? The findings are consistent with the clinical history of excoriation. An ? etiology for the lesion is not evident in these slides. ??The eosinophils ? raise the possiblity of a hypersensitivity component. Folliculitis and ? PLEVA are NOT identified. Transepidermal elimination of collagen is NOT ? identified to favor a perforating disorder in this biopsy. ? ---Microscopic Description--- ? Slides reviewed, microscopic description not recorded. ? Special stains are performed. ? Block ? Stain ? Result ( Positive / Negative ) ? A1 ? PAS/F ? negative ? ---Gross Description--- ? Labeled/Fixative: ? Labeled with the patient's name and medical ? record number, formalin. ? Qty/Size/Weight: ?Single punch, 0.5 cm, there is a central, crusted, ? hodge macule, 0.2-cm in diameter. ? [facility] ? Provider: ?? GERI TREVINO ? Pt. Name: ?? KALEY LANGLEY ? Acc #: ?[id number] ? Pt. ? Col Date: ?? 10/28/2011 ? /Sex: ?1970,(41 years),Male ? Rec Date: ?? 10/28/2011 ? LOC: ?4M ? SURGICAL PATHOLOGY ? Sections/Processing: ??Inked. ??Bisected. ??(T1) ??bjm/PPS ? ---Clinical Information--- ? Specimen Submitted: ? A - Skin, left inner lateral knee, punch (1) ? Clinical History/Diagnosis: ? Excoriated 3 mm red papule, new lesion of a 6-month rash consisting of ? excoriated erythematous papules and nodules; folliculitis vs perforating ? dermatosis vs PLEVA CERNER MILLENNIUM 10/28/2011 4:18 PM EDT Geri Trevino MD PATHOLOGY/CYTOLOGY O RDERABLES Performing Organization Address [facility] Co de Phone Number RANDY KNAPPMeilimeiLORENZA * Specimen to Pathology (NON-OR) (10/28/2011 2:36 PM EDT) AP Specimen 10/28/2011 2:36 PM EDT 10/28/2011 2:43 PM EDT Narrative CERNER MILLENNIUM - 10/28/2011 2:43 PM EDT Specimen requisition ordered. ??Separate Pathology report to follow Mihir Zapata MD PATHOLOGY/CYTOL OGY ORDERABLES Performing Organization Address [facility] Co de Phone Number RANDY KNAPPMeilimeiLORENZA documented in this encounter Visit Diagnoses Diagnosis Folliculitis- Primary Other specified disease of hair and hair follicles Rash Rash and other nonspecific skin eruption documented in this encounter Care Teams Recycling Program Manager Relationship Specialty Start Date End Date Awilda Prakash APRN PCP - General 08/25/11 12/20/11 documented as of this encounter
--- OUTSIDE RECORDS SUMMARY | 2023-09-07 12:26 | XMS_ITS | Encounter Summary ---
Author Organization [facility] [place] [address] Care Team Providers Care Motor Equipment Sergeant Name Role Phone Awilda Pelayo ROSAURA Primary Care Provider [phone] Reason for Visit * Reason Comments Rash Encounter Details Date Type Department Care Team (Late st Contact Info) Description 11/18/2011 1:00 PM EDT Office Visit Hematology [place] [address] Saurabh Malhotra MD [facility] [place] [address] Toxin exposure (Primary Dx) Discharge Disposition: Home Social History [...] Sign Reading Time Taken Comments Blood Pressure 120/84 11/18/2011 12:55 PM EDT Pulse 74 11/18/2011 12:55 PM EDT Temperature 36.9 ??C (98.4 ??F) 11/18/2011 12:55 PM E DT Respiratory Rate 20 11/18/2011 12:55 PM EDT Oxygen Saturation 96% 11/18/2011 12:55 PM EDT Inhaled Oxygen Concentration - - Weight 124 kg (273 lb 5.9 oz) 11/18/2011 12:55 P M EDT Height 177.9 cm (5' 10.04) 11/18/2011 12:55 PM EDT Body Mass Index 39.18 11/18/2011 12:55 PM EDT documented in this encounter Progress Notes * Chuy Solis Anton - 11/18/2011 4:14 PM EDT Clinical Pharmacology Consult with Dr Saurabh Malhotra Patient Name: Zack Dowell :1970 Referring Provider: AWILDA PELAYO APRN Reason for referral:Persistent rash, 'scarred lung' and liver injury thought to be from exposure tomethylene chloride HPI: obtained from patient and review of records sent along for consultation. Patient is accompanied to clinic today by his and toddler son Patient is a 41 yo male with medical history including chronic Hep C infection, depression, ?? 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 The process involved dipping the window panes in methylene chloride vats to dissolve the paint (which are reported to also contain lead). The panes where then dipped in a bleach/ whitening chemical to treat the wood and subsequently dipped in a 3rd chemical to 'neutralize' the second chemical. The names of chemical 2 and 3 are not known at this time. Till around June 2010, the work was done in an enclosed barn with little ventilation and the use of a propane heater. Subsequent work was done from June to 2010 in a proper work area that was juancarlos tilated and without the use of chemicals 2 and 3. Only protective gloves (?? Type) were worn. No respirators or other PPEs were worn. Soon after beginning the work, the patient began noticing fatigue, shortness of breath and 'wet breathing'. He also developed a rash. Rash started in the lower extremity and spread to involve the abdomen, chest and upper extremity. Some lesions were also reported in the lower back. The lesions would be red, painful and itchy and had fluid initially until they are denuded from itching. He denies fever with these lesions. The symptoms were persisted throughout the duration of the contract. The only other co-worker also complained of breathing difficulty and fatigue. Patient also complained of increased somnolence. No headaches reported. No RUQ abdominal pain. No jaundice. Patients had complaints of dyspnea at rest and exertion. He also complained of wet breathing he could fully describe. At some point, he said he 'fell' into the vat containing the methylene chloride. Symptoms of dyspnea have mostly resolved since exposure was discontinued but he occasionally wheezes and has needed inhalers and bronchodilators. He has been informed he has scarred lungs and latent TB which have resulted in treatment with INH. CXR and other lab work done are not available to us at this time. He has also suffered a torn meniscus that has been operated on. He has had 2 punch biopsies or the skin lesions at his primary care provider's office and also hereat [facility]. The pathology report here states the tissue was consistent with excoriation, active inflammation and presence of eosinophils. Review of systems As in HPI Past Medical Hx from Depression Lt knee injury H/o Opiate dependency H/o EtOH abuse Reactive airway disease Hep C Metabolic syndrome Medication Hx Medication Sig ??? fluticasone (FLOVENT) 220 mcg/actuation inhaler Inhale 1 puff into the lungs 2 times daily. ??? pravastatin (PRAVACHOL) 20 mg tablet Take 20 mg by mouth daily. ??? doxycycline (VIBRAMYCIN) 100 mg capsule Take 1 capsule by mouth 2 times daily. Take with food, avoid calcium within 1 hour of taking, may cause sunburn ??? buprenorphine-naloxone (SUBOXONE) 8-[address] 2 tablets under the tongue daily. ??? metFORMIN (GLUCOPHAGE) 500 mg tablet Take 500 mg by mouth 2 times daily (with meals). ??? fluvoxamine (LUVOX) 100 mg tablet Take 100 mg by mouth 2 times daily. ??? traZODone (DESYREL) 50 mg tablet Take 50 mg by mouth nightly. ??? nicotine (NICODERM CQ) 21 mg/[address] 1 patch onto the skin every 24 hours. Allergies No known drug allergies Family Hx No history of dermatological disease No liver disease or lung disease Social Hx Smokes 1ppd for 25yrs Very seldom EtOH use (1 beer per month) Denies illicit drug use On examination (limited) Filed Vitals: 11/18/11 1255 BP: 120/84 Pulse: 74 Temp: 36.9 ??C (98.4 ??F) TempSrc: Oral Resp: 20 Height: 177.9 cm (5' 10.04) Weight: 124 kg (273 lb 5.9 oz) SpO2: 96% General: Middle aged male, obese. Not in distress. Comfortable in chair. Skin: Generalized erythematous raised papular lesions, some flores from healing. Most lesions sub-centimeter in size. Visible signs of excoriation. Some crusted over. No vesicles or pustules evident . Chest: Normal air entry bilaterally.Vesicular sounds throughout. No rales or rhonchi. CVS: S1 and S2. No murmurs, rubs or gallops. Abdomen: Obese, soft, moves with respiration. No tenderness. Normal bowel sounds FACILITIES CUSTODIAN: Awake and alert. Moves all extremities. Gait normal Labs Recent Results (from the past 24 hour(s)) CBC (WITH DIFF) Component Value Range ??? WBC 7.3 4.0 - 10.0 (x10(3)/mcL) ??? RBC 4.55 (*) 4.63 - 6.08 (x10(6)/mcL) ??? Hemoglobin 13.5 (*) 13.7 - 17.5 (gm/dL) ??? Hematocrit 39.7 (*) 40.0 - 51.0 (%) ??? MCV 87.3 79.0 - 92.0 (fL) ??? MCH 29.7 25.6 - 32.2 (pg) ??? MCHC 34.0 32.0 - 36.5 (gm/dL) ??? Platelets 188 145 - 370 (x10(3)/mcL) ??? RDWSD 40.0 35.0 - 46.0 (fL) ??? RDWCV 12.5 10.9 - 14.4 (%) ??? MPV 11.0 9.0 - 12.0 (fL) COMPREHENSIVE METABOLIC PANEL (NON-FASTING) Component Value Range ??? Glucose Lvl 76 60 - 199 (mg/dL) ??? BUN 9 (*) 10 - 20 (mg/dL) ??? Creatinine 0.61 (*) 0.80 - 1.50 (mg/dL) ??? Sodium 140 135 - 145 (mmol/L) ??? Potassium 3.9 3.5 - 5.0 (mmol/L) ??? Chloride 102 98 - 107 (mmol/L) ??? CO2 27 22 - 31 (mmol/L) ??? Anion Gap 11 5 - 15 (mmol/L) ??? Calcium 9.0 8.5 - 10.5 (mg/dL) ??? Total Protein 7.2 6.4 - 8.3 (gm/dL) ??? Albumin 3.9 3.2 - 5.2 (gm/dL) ??? AST 32 0 - 39 (unit/L) ??? ALT 36 0 - 55 (unit/L) ??? Alk Phos 83 40 - 120 (unit/L) ??? Total Bilirubin 0.2 0.2 - 1.3 (mg/dL) ??? Bili, Direct 0.1 0.0 - 0.3 (mg/dL) ? ? Estimated GFR >60 >=60 DIFFERENTIAL, AUTOMATED Component Value Range ??? Neutrophils % 44.0 34.0 - 71.0 (%) ??? Neutr Abs (ANC) 3.20 1.50 - 6.30 (x10(3)/mcL) ??? Lymphocytes % 44.6 19.0 - 53.0 (%) ??? Lymphocytes Abs 3.2 1.0 - 3.6 (x10(3)/mcL) ??? Monocytes % 6.9 4.0 - 13.0 (%) ??? Monocyte Abs 0.5 0.2 - 1.0 (x10(3)/mcL) ??? Eosinophils % 4.0 0.0 - 7.0 (%) ??? Eosinophils Abs 0.3 0.0 - 0.5 (x10(3)/mcL) ??? Basophils % 0.4 0.0 - 2.0 (%) ??? Basophils Abs 0.0 0.0 - 0.2 (x10(3)/mcL) ??? Immature Gran % 0.10 0.00 - 0.66 (%) ??? Alexa Gran Abs 0.01 0.00 - 0.05 (x10(3)/mcL) Assessment and Recommendations Mr Dowell is a 41 yo male with occupational exposure to methylene chloride for almost 1 year. Last exposure in Dec 2010. Respiratory symptoms, fatigue are improving however the rash he has developed has persisted and exact etiology not known. He also has a fatty liver that is scheduled to be biopsied. Current blood work mostly normal except for a mild normocytic,normochromic anemia. LFTs are within normal limits. We are unable to see a CXR or CXR report of 'scarred lungs'. Methylene chloride is a volatile hydrocarbon that is toxic when inhaled,ingested or comes into contact with human skin. Manifestations are varied and include liver damage, fatigue, coma, seizures, respiratory difficulties. Exposure to skin lead in paint, burning and hyperalgesia. These varied manifestations however resolve on eliminating exposure altogether. We are unaware of reports of methylene chloride causing the rash pattern seen in Mr Dowell. While acute toxic exposure can lead to fatty liver, we are unaware of this being irreversible after exposure is stopped. Of note the patient has other risk factors that may explain fatty liver. Given the limited information we have, we have asked Mr Dowell for a copy of the CXR that reports scared lungs and also to supply the names of the other chemicals he was exposed to. We asked for a CBC+diff and CMP that have been resulted above. We await a whole blood lead level given the exposure to old paint that likely contain lead. However we do note his MCV is normal and renal function is also normal. We will await the requested information with which we would use to continue our research in an attempt at arriving at a diagnosis. At that time, we would update our notes. Chuy Solis MD Fellow, Clinical Pharmacology Patient seen along with Dr. Malhotra who will cosign this note and write an addendum. Addendum/Follow-Up Note MSDS for the all chemicals the patient was exposed to were sent to us by the patient himself and the christian education director of the chemicals. The main constituents of the chemicals include methylene chloride, toluene, methanol, potassium hydroxide, sodium hydroxide and sodium silicate. A review of the above chemicals was conducted in the current literature and we have not been able to associate his skin findings with chemical exposure. Immediate burning, pain and hyperalgesia wouldbe the main clinical effects of skin contact to these chemicals -especially methylene chloride, sodium hydroxide and potassium hydroxide. They would not be expected to be present 9 months after exposure. Also, the distribution of these lesions on most parts of the body, including where protected byclothing, suggests a systemic process, rather than a localized or topical dermatitis. We were able to discuss with Dermatopathology the findings of his skin biopsy taken 10/28/11. The Pathologist noted the the excoriation of the skin lesions may have precluded finding a more specific diagnostic features on the pathology specimens. The eosinophils noted would suggest a number of different etiologies including hypersensitivity reaction, drugs, parasite infestation. The finding of eosinophils is non-specific. Suggested was the benefit of a referral to Dr Iraida Olivo in [place], [facility] where skin/ patch testing could be done to determine etiology of any hypersensitivity the patient may have. Also suggestedwas the patient to present for a new skin biopsy when new lesions develop and before they become exc oriated. A copy of this note will be sent to the referring provider. Chuy Solis MD Fellow, Clinical Pharmacology Addenum added by Dr. Malhotra on November 24 I saw patient in clinic with Dr. Solis for more than one hour on his visit, discussed the skin biopsy with the pathologist, and also reviewed literature with Dr. Solis. I performed my own focused history and physical exam. I agree with his note above, with the recent addendum written after the lab results returned. I would add the following observations. 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 Patient reports that he did wear gloves, but not protection for the rest of his skin, eyes, or lungs. He may also have been exposed to carbon monoxide fumes when heworked in a large barn with a heater. While such exposures can cause irritation of the lungs, airway, eyes, and skin, this irritation is usually immediate, and diminishes when the toxin is washed off. We could not find reports from theseagen of a chronic skin condition persisting for 9 months after exposure has ended. We wondered about a vasculitis that persists, but no vasculitis was seen on biopsy, and these agents have not beenreported to do that. The skin biopsy results--while made somewhat less precise due to the excoriatijon changes--do suggest some type of ongoing hypersensitivity reaction, with the itching, inflammation, eosinophil, and distribution of lesions. We wondered about a hypersensitivity reaction to one of his other meds (e.g. Doxycycline, statin), or perhaps some environmental ongoing exposure. WE suggest it may be valuable to perform another skin biopsy on a fresh lesion that has not been scratched, and/or refer patient to Dr. Iraida Olivo for skin testing. Finally, the whole blood lead level was in the low normal range, and thus at this point it appears there is no evidence of dangerous exposure to lead dust in this window dipping/stripping process. We will send brief letters to patient and referring physician with these findings and suggestions. I spent more than one hour with patient, and also reviewing his data and the literature. Saurabh Malhotra MD documented in this encounter Plan of Treatment Scheduled Orders Name Type Priority Associated Diagnoses Orde r Schedule Miscellaneous Lab request Lab Routine Toxin exposure Expected: 11/18/2011, Expires: 11/17/2012 documented as of this encounter Procedures Procedure Name Priority Date/Time Associated Diagnosis Comments DIFFERENTIAL, AUTOMATED Routine 11/18/2011 2:40 PM EDT CBC (WITH DIFF) Routine 11/18/2011 2:40 PM EDT Toxin exposure LEAD, VENOUS (BEAN STATION) Routine 11/18/2011 2 :40 PM EDT COMPREHENSIVE METABOLIC PANEL (NON-FASTING) Routine 11/18/2011 2:40 PM EDT Toxin exposure documented in this encounter Results * DIFFERENTIAL, AUTOMATED (11/18/2011 2:40 PM EDT) Neutrophils % 44.0 34.0 - 71.0 % CERNER MILLENNIUM Neutr Abs (ANC) 3.20 1.50 - 6.30 x10(3)/mcL CERNER MILLENNIUM Lymphocytes % 44.6 19.0 - 53.0 % CERNER MILLENNIUM Lymphocytes Abs 3.2 1.0 - 3.6 x10(3)/mcL CERNER MILLENNIUM Monocytes % 6.9 4.0 - 13.0 % CERNER MILLENNIUM Monocyte Abs 0.5 0.2 - 1.0 x10(3)/mcL CERNER MILLENNIUM Eosinophils % 4.0 0.0 - 7.0 % CERNER MILLENNIUM Eosinophils [...] 0.05 x10(3)/mcL CERNER MILLENNIUM Blood specimen (specimen) 11/18/2011 2:40 PM EDT 11/18/2011 2:51 PM EDT Saurabh Malhotra MD HEMATOLOGY ORDERAB LES CERNER RAENNIUM * LEAD (ADULT) (11/18/2011 2:40 PM EDT) Lead 3 0 - 9 mcg/dL CERNER MILLENNIUM Comment: Test Performed by: [employer] [address], [place], [place] [address] Aerospace Stress Engineer: Shari Willson, Ph.D. Blood specimen (specimen) 11/18/2011 2:40 PM EDT 11/18/2011 2:53 PM EDT Narrative Resulting Agency Comment Spec In Lab Saurabh Malhotra MD CHEMISTRY ORDERABL ES CERNER MILLENNIUM * (ABNORMAL) Comprehensive metabolic panel (non-fasting) (11/18/2011 2:40 PM EDT) [facility] Signature Glucose Lvl 76 60 - 199 mg/dL CERNER MILLENNIUM Comment:Diabetes: >=200 mg/d L plus symptoms BUN 9(L) 10 - 20 mg/dL CERNER MILLENNIUM Creatinine 0.61(L) 0.80 - 1.50 mg/dL CERNER MILLENNIUM Comment: Please note that the pediatric reference intervals supplied above were not validated at [facility]. Results from pediatric patients should be interpreted in conjunction to the patient's age, height and muscle mass. Sodium 140 135 - 145 mmol/L CERNER MILLENNIUM Potassium [...] 3.2 - 5.2 gm/dL CERNER MILLENNIUM AST 32 0 - 39 unit/L CERNER MILLENNIUM ALT 36 0 - 55 unit/L CERNER MILLENNIUM Alk Phos 83 40 - 120 unit/L CERNER MILLENNIUM Total [...] J Am Soc Nephrol;6:1963-72. Blood specimen (specimen) 11/18/2011 2:40 PM EDT 11/18/2011 2:51 PM EDT Narrative Resulting Agency Comment Spec In Lab Saurabh Malhotra MD CHEMISTRY ORDERABL ES [facility] * (ABNORMAL) CBC (with Diff) (11/18/2011 2:40 PM EDT) WBC 7.3 4.0 - 10.0 x10(3)/mcL [facility] RBC 4.55(L) 4.63 - 6.08 x10(6)/mcL CERNER MILLENNIUM Hemoglobin 13.5(L) 13.7 - 17.5 gm/dL CERNER MILLENNIUM Hematocrit 39.7(L) 40.0 - 51.0 % CERNER MILLENNIUM MCV 87.3 79.0 - 92.0 fL CERNER MILLENNIUM MCH 29.7 25.6 - 32.2 pg CERNER MILLENNIUM MCHC 34.0 32.0 - 36.5 gm/dL CERNER MILLENNIUM Platelets 188 145 - 370 x10(3)/mcL CERNER MILLENNIUM RDWSD 40.0 35.0 - 46.0 fL CERNER MILLENNIUM RDWCV 12.5 10.9 - 14.4 % CERNER MILLENNIUM MPV 11.0 9.0 - 12.0 fL CERNER MILLENNIUM Blood specimen (specimen) 11/18/2011 2:40 PM EDT 11/18/2011 2:51 PM EDT Narrative Resulting Agency Comment Spec In Lab Saurabh Malhotra MD HEMATOLOGY ORDERAB LES [facility] M[facility]ALES documented in this encounter Visit Diagnoses Diagnosis Toxin exposure- Primary Contact with and (suspected) exposure to other potentially hazardous substances documented in this encounter Care Teams Motor Equipment Sergeant Relationship Specialty Start Date End Date Awilda Pelayo APRN PCP - General 08/25/11 12/20/11 documented as of this encounter
--- OUTSIDE RECORDS SUMMARY | 2023-09-07 12:26 | XMS_ITS | Encounter Summary ---
Author Organization [facility] [place] [address] Care Team Providers Care Boat Designer Name Role Phone Awilda Prakash APRN Primary Care Provider [phone] Encounter Details Date Type Department Care Team (Late st Contact Info) Description 03/05/2010 Orders [place] [address] Lj Braden MD [facility] [place] [address] Social History Tobacco Use Types Packs/Day Years Used Date Smoking Tobacco: Never Assessed Sex and Gender Information Value Date Recorded Sex Assigned at Not on file Gender Identity Not on file Sexual Orientation Not on file documented as of this encounter Plan of Treatment Not on file documented as of this encounter Visit Diagnoses Not on filedocumented in this encounter Care Teams Boat Designer Relationship Specialty Start Date End Date Awilda Prakash APRN PCP - General 08/25/11 12/20/11 documented as of this encounter
--- OUTSIDE RECORDS SUMMARY | 2023-09-07 12:26 | XMS_ITS | Encounter Summary ---
[place] [address] Care Team Providers Care Lab Support Technician Name Role Phone Awilda Prakash APRN Primary Care Provider [phone] Encounter Details Date Type Department Care Team (Late st Contact Info) Description 10/28/2011 External Results [place] [id number] Provider, Scanning Social History Tobacco Use Types Packs/Day Years [...] Date/Time Associated Diagnosis Comments MRI/MRA SCAN Routine 10/28/2011 documented in this encounter Results * Scan Doc: MRI/MRA (10/28/2011) Anatomical Region Laterality Modality Other Scanning Provider MEDIA MGR SCAN EXT O RDR/RSLT documented in this encounter Visit Diagnoses Not on filedocumented in this encounter Care Teams Lab Support Technician Relationship Specialty Start Date End Date Awilda Prakash APRN PCP - General 08/25/11 12/20/11 documented as of this encounter
--- OUTSIDE RECORDS SUMMARY | 2023-09-07 12:26 | XMS_ITS | Encounter Summary ---
Author Organization [facility] [place] [address] Care Team Providers Care It Support Manager Name Role Phone Awilda Prakash APRN Primary Care Provider [phone] Encounter Details Date Type Department Care Team (Late st Contact Info) Description 03/02/2011 Orders Only [place] [address] Lj Braden MD [facility] [place] [address] Social History Tobacco Use Types Packs/Day Years [...] Associated Diagnosis Comments FILM LIBRARY STORAGE ONLY MR LOWER EXTREMITY Routine 03/02/2011 2:30 PM EST documented in this encounter Results * FILM LIBRARY- STORAGE ONLY MR LOWER EXTREMITY (03/02/2011 2:30 PM EST) 03/02/2011 2:30 PM EST Narrative [facility] - 09/10/2013 10:34 AM EDT This is a non-reportable exam. Procedure Note Florencio Pereira - 09/10/2013 This is a non-reportable exam. Lj Braden MD IM FILM LIBRARY ORD ERABLES RAD [address] [place] [address] documented in this encounter Visit Diagnoses Not on filedocumented in this encounter Care Teams It Support Manager Relationship Specialty Start Date End Date Awilda Prakash APRN PCP - General 08/25/11 12/20/11 documented as of this encounter
--- OUTSIDE RECORDS SUMMARY | 2023-09-07 12:26 | XMS_ITS | Encounter Summary ---
Author Organization [facility] [place] [address] Care Team Providers Care Franchise Sales Manager Name Role Phone Awilda Prakash Mo KAPLAN Primary Care Provider [phone] Reason for Visit * Reason Comments GI Problem Encounter Details Date Type Department Care Team (Late st Contact Info) Description 09/02/2011 3:30 PM EDT Office [place] [address] Patience Whitman, [facility] [address] [place] [address] Chronic hepatitis C without mention of hepatic [...] Sign Reading Time Taken Comments Blood Pressure 110/75 09/02/2011 3:07 PM EDT Pulse 75 09/02/2011 3:07 PM EDT Temperature - - Respiratory Rate - - Oxygen Saturation - - Inhaled Oxygen Concentration - - Weight 122 kg (269 lb) 09/02/2011 3:07 PM EDT Height 180.3 cm (5' 11) 09/02/2011 3:07 PM EDT Body Mass Index 37.52 09/02/2011 3:07 PM EDT documented in this encounter Progress Notes * IvetMarcia ramsayPatience [place], EVENTS SPECIALIST - 09/02/2011 6:09 PM EDT Subjective: Patient ID: Kaley Langley is a 41 y.o. male. HPI Mr. Langley is a pleasant 41 year old white male who was seen today at [facility] in consultation for hepatitis C which was recently diagnosed by his PCP about 2 weeks ago. He has risk factors for HCV dating back to to 1986 when he started using intranasal drugs. 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 He had 2 tattoos placed in [facility] in 1989 then in 1999. He has his ear piercedwhich was done in 1992 at home. He denies experiencing icteric illness. He drank ETOH heavily (12 pack beer daily) x 3 years from [age]; he now drinks 2 beers occasionally approximately every other month. He has been seeing a substance abuse counselor x 7 years but only became sober after starting s uboxone in February. He has no complaints with the exception of a rash which started recently. The rash on his legs appears hyperpigmented with erythematous base. He has erythematous papules on arms which are pruritic. He denies fever, chills, diaphoresis, abdominal pain, abdominal distention, N, V, D, melena, hematoche nicole, confusion, arthralgias. He was recently told he was borderline diabetic however we do not have a copy of recent labs. Past Medical History Diagnosis Date ??? History of substance abuse ??? Insomnia ??? Depression ??? Diabetes mellitus Past Surgical History Procedure Date ??? Knee arthroscopy 02/27/11 left knee - work-related injury buprenorphine-naloxone (SUBOXONE) 8-2 mg Subl; metFORMIN (GLUCOPHAGE) 500 mg tablet; fluvoxamine (LUVOX) 100 mg tablet; traZODone (DESYREL) 50 mg tablet No Known Allergies Family History Problem Relation Age of Onset ??? Cancer Mother ??? Heart Failure Father ??? High Cholesterol Father ??? Hypertension Father ??? Heart Failure Brother ??? High Cholesterol Brother ??? Hypertension Brother History Social History ??? Marital Status: Single Spouse Name: N/A Number of Children: N/A ??? Years of Education: N/A Occupational History ??? Not on file. Social History Main Topics ??? Smoking status: Current Everyday Smoker -- 2.0 packs/day for 25 years Types: Cigarettes ??? Smokeless tobacco: Not on file Comment: working on quitting; currently down to 3/4 ppd ??? Alcohol Use: Yes 2 beers q 2 months. Hx of heavy ETOH x 3 years 12 pack daily. ??? Drug Use: No Clean and sober since 03/10. Hx IV drugs [id number]. Hx intranasal drugs [id number]. ??? 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 He injured left knee and underwent arthroscopy in February. Knee is not getting better. He continues to be out on worker's compensation.He has hx of IVDU [id number] of intranasal drug use 1986-1999Has 2 tattoos he received in [facility] in 1989 and 1999.Pierced ear in 1992 at home, shared needles.He sees psychiatrist, Dr. Baron, in [facility].He sees drug counselor Yanira Chahal x 7 years.He started suboxone x 7 months ago and has been cleanand sober since.Hx of heavy ETOH x 3 year drinking 12 pack daily when [age]. Now social drinker has2 beers once every 2 months.Working on cutting down with tobacco in attempt to quit. Review of Systems Constitutional: Negative for fever, [...] base; mild erytematous papules on forearm) noted. Psychiatric: He has a normal mood and affect. His behavior is normal. Assessment and Plan: Mr. Langley is a pleasant 41 year old white male seen in consultation today for hepatitis C which was recently diagnosed. He has risk factors for hepatitis C dating back 25 years. He has been clean since February 2011 at which time he was started on suboxone. I had a long discussion with patient andhis significant other, Kathya, about hepatitis C, risk of transmission, treatment. I explained that the risk of HCV transmission through heterosexual intercourse is very rare and they, therefore, do not need to change their sexual practices. I had a long discussion with him regarding his drug use. Explained that in order to be considered a candidate for HCV treatment he would need to have been clean and sober for a minimum of 6 months. Furthermore he would need clearance from his drug abuse counselor and psychiatrist. He will need to have an EKG and dilated eye exam prior to starting treatment. He has newly diagnosed borderline diabetes and [...] not know the staging of liver fibrosis. He received his first Hepatitis A/B vaccine last week. I encouraged him to finish the series through his PCP's office. Today will obtain labs. I have ordered an abdominal ultrasound which he can have done here. He willfollow-up with me in 2 months. I did advise that we may need to consider obtaining a liver biopsy in order to stage his liver disease. Depending on his lab and ultrasound results. All of his questions were answered. He verbalized understanding and agreement to the plan of care. documented in this encounter Plan of Treatment Not on file documented as of this encounter Results * US abdomen complete (11/11/2011 11:13 AM EDT) Anatomical Region Laterality Modality Abdomen, Vascular Ultrasound 11/11/2011 11:1 3 AM EDT Narrative 11/12/2011 9:09 AM EDT ?Abdominal ? (Signed Final 11/11/2011 11:12 am) Patient Info ID: ?[id number] ?: ??[birth year] (41 yrs) Name: ?KALEY LANGLEY ?Visit Date: 11/11/2011 10:40 am Performed By Performed By: ?Yanira Everett RDMS Attending: ? Fermin WEBSTER, Arnulfo Sosa Referred By: ? TARAN CUENCA MD Service(s) Provided [facility] - Abdominal Complete Survey - [id number] ? [id number] Indications HCV Comparison None ----- Liver ----- Right Lobe Length: ?? 20 ? cm Echogenicity/Echotexture: ?? Increased diffusely Comment: ?Hepatomegaly Gallbladder Cholelithiasis: ?No stones visualized Wall Thickness: ?Normal wall thickness Biliary Tract Intrahepatic Ducts: ?? Normal Extrahepatic Ducts: ?? Normal Common Duct Size: ? 4.5 ?mm -------- Pancreas -------- Head: ? Poorly visualized due to overlying bowel Tail: ? Poorly visualized due to overlying bowel Body: ? Poorly visualized due to overlying bowel ------ Spleen ------ Size (cm) ?L: ??10.4 Comment: ?Normal appearance Right Kidney Size (cm) ?L: ??11.4 Cortical Thickness: ? Normal Cortical Echogenicity: ??Normal Hydronephrosis: ? No sonographic evidence Left Kidney Size (cm) ?L: ??10.7 Cortical Thickness: ? Normal Cortical Echogenicity: ??Normal Hydronephrosis: ? No sonographic evidence ----- Aorta ----- Comment: ?Normal in caliber --- IVC --- Normal in caliber, where visualized Fluid Collections No ascites seen. Impression Ultrasound - Abdomen Complete - Summary Diffusely enlarged and echogenic liver most c/w fatty infiltration. No focal hepatic mass seen. Spleen normal in size and no ascites. I ??viewed the images and agree with the above interpretation. Thank you for allowing us to participate in the care of KALEY LANGLEY. Please do not hesitate to call if you have any questions. ? Arnulfo Christensen MD Electronically Signed Final Report ?? 11/11/2011 11:12 am Procedure Note Arnulfo Christensen MD - 11/12/2011 Abdominal (Signed Final 11/11/2011 11:12 am) Patient Info ID: [id number] : [birth year] (41 yrs) Name: KALEY LANGLEY Visit Date: 11/11/2011 10:40 am Performed By Performed By: Yanira Everett [facility] Attending: Arnulfo Christensen MD Referred By: TARAN CUENCA MD Service(s) Provided [facility] - Abdominal Complete Survey - [id number] Indications HCV Comparison None ----- Liver ----- Right Lobe Length: 20 cm Echogenicity/Echotexture: Increased diffusely Comment: Hepatomegaly Gallbladder Cholelithiasis: No stones visualized Wall Thickness: Normal wall thickness Biliary Tract Intrahepatic Ducts: Normal Extrahepatic Ducts: Normal Common Duct Size: 4.5 mm -------- Pancreas -------- Head: Poorly visualized due to overlying bowel Tail: Poorly visualized due to overlying bowel Body: Poorly visualized due to overlying bowel ------ Spleen ------ Size (cm) L: 10.4 Comment: Normal appearance Right Kidney Size (cm) L: 11.4 Cortical Thickness: Normal Cortical Echogenicity: Normal Hydronephrosis: No sonographic evidence Left Kidney Size (cm) L: 10.7 Cortical Thickness: Normal Cortical Echogenicity: Normal Hydronephrosis: No sonographic evidence ----- Aorta ----- Comment: Normal in caliber --- IVC --- Normal in caliber, where visualized Fluid Collections No ascites seen. Impression Ultrasound - Abdomen Complete - Summary Diffusely enlarged and echogenic liver most c/w fatty infiltration. No focal hepatic mass seen. Spleen normal in size and no ascites. I viewed the images and agree with the above interpretation. Thank you for allowing us to participate in the care of KALEY LANGLEY. Please do not hesitate to call if you have any questions. Arnulfo Christensen MD Electronically Signed Final Report 11/11/2011 11:12 am Taran Cuenca MD IMG GEN ORDERABL ES documented in this encounter Visit Diagnoses Diagnosis Chronic hepatitis C without mention of hepatic coma- Primary Chronic hepatitis C without mention of hepatic coma documented in this encounter Care Teams Franchise Sales Manager Relationship Specialty Start Date End Date Awilda Prakash, ROSAURA PCP - General 08/25/11 12/20/11 documented as of this encounter
--- OUTSIDE RECORDS SUMMARY | 2023-09-07 12:26 | XMS_ITS | Encounter Summary ---
[place] [address] Care Team Providers Care Women'S Swim Coach Name Role Phone Awilda Prakash APRN Primary Care Provider [phone] Encounter Details Date Type Department Care Team (Late st Contact Info) Description 11/16/2011 [place] [phone] Lu Nicole, RN Social History Tobacco Use Types Packs/Day [...] Telephone Encounter - Lu Nicole RN - 11/16/2011 3:02 PM EDT Attempted to call patient and general message left on unidentified VM asking patient to call back. * Telephone Encounter - Patience [place] APRN - 11/16/2011 2:31 PM EDT No signs of cirrhosis on ultrasound. Fatty liver seen on ultrasound. Encourage weight loss. He should consider liver biopsy as discussed at his last appointment. Marcia Juárez * Telephone Encounter - Lu Nicole RN - 11/16/2011 11:15 AM EDT Patient requesting results of U/S: Diffusely enlarged and echogenic liver most c/w fatty infiltration. No focal hepatic mass seen. Spleen normal in size and no ascites. Attempted to call patient back and general message left on unidentified VM documented in this encounter Plan of Treatment Not on file documented as of this encounter Visit Diagnoses Not on filedocumented in this encounter Care Teams Women'S Swim Coach Relationship Specialty Start Date End Date Awilda Prakash APRN PCP - General 08/25/11 12/20/11 documented as of this encounter
--- OUTSIDE RECORDS SUMMARY | 2023-09-07 12:26 | XMS_ITS | Encounter Summary ---
[place] [address] Care Team Providers Care Pharmaceutical Service Representative Name Role Phone Awilda Prakash APRN Primary Care Provider [phone] Encounter Details Date Type Department Care Team (Latest Contact Info) Description 11/11/2011 10:39 AM EDT - 11/11/2011 11:59 PM EDT Hospital [place] [phone] Chronic hepatitis C without mention of hepatic coma Social History Tobacco Use Types [...] Associated Diagnosis Comments US ABDOMEN COMPLETE Routine 11/11/2011 1 1:13 AM EDT Chronic hepatitis C without mention of hepatic coma documented in this encounter Results * US abdomen complete (11/11/2011 11:13 AM EDT) Anatomical Region Laterality Modality Abdomen, Vascular Ultrasound 11/11/2011 11:1 3 AM EDT Narrative 11/12/2011 9:09 AM EDT ?Abdominal ? (Signed Final 11/11/2011 11:12 am) Patient Info ID: ?[id number] ?: ??[birth year] (41 yrs) Name: ?ZACK LANGLEY ?Visit Date: 11/11/2011 10:40 am Performed By Performed By: ?Yanira Everett RDMS Attending: ? Fermin WEBSTER, Arnulfo Sosa Referred By: ? MENDEZ CUENCA MD Service(s) Provided [facility] - Abdominal Complete Survey - [id number] ? [id number] Indications HCV Comparison None ----- Liver ----- [...] if you have any questions. ? Arnulfo Chirstensen MD Electronically Signed Final Report ?? 11/11/2011 11:12 am Procedure Note Arnulfo Christensen MD - 11/12/2011 Abdominal (Signed Final 11/11/2011 11:12 am) Patient Info ID: [id number] : [birth year] (41 yrs) Name: ZACK LANGLEY Visit Date: 11/11/2011 10:40 am Performed By Performed By: Yanira Everett [facility] Attending: Arnulfo Christensen MD Referred By: MENDEZ CUENCA MD Service(s) Provided [facility] - Abdominal Complete Survey - [phone] [id number] Indications HCV Comparison None ----- Liver ----- [...] Electronically Signed Final Report 11/11/2011 11:12 am Mendez Cuenca MD IMG GEN ORDERABL ES documented in this encounter Visit Diagnoses Diagnosis Chronic hepatitis C without mention of hepatic coma documented in this encounter Care Teams Pharmaceutical Service Representative Relationship Specialty Start Date End Date Awilda Prakash, ROSAURA PCP - General 08/25/11 12/20/11 documented as of this encounter
--- OUTSIDE RECORDS SUMMARY | 2023-09-07 12:26 | XMS_ITS | Encounter Summary ---
Author Organization [facility] Address [facility] [place] [address] Care Team Providers Care Router Machine Operator Name Role Phone Awilda Pelayo ROSAURA Primary Care Provider [phone] Encounter Details Date Type Department Care Team (Latest Contact Info) Description 11/22/2011 9:52 AM EDT - 11/22/2011 11:59 PM EDT Hospital [place] [id number] CLINIC, DR PAMELA Peralta, Mendez Duggan MD [facility] [place] [address] Hepatitis C; Hep C w/o coma, chronic Discharge Disposition: Home Social History Tobacco Use [...] Sign Reading Time Taken Comments Blood Pressure 120/64 11/22/2011 1:22 PM EDT Pulse 74 11/22/2011 1:22 PM EDT Temperature 36.5 ??C (97.7 ??F) 11/22/2011 11:00 AM E DT Respiratory Rate 18 11/22/2011 1:22 PM EDT Oxygen Saturation 94% 11/22/2011 1:22 PM EDT Inhaled Oxygen Concentration - - Weight - - Height - - Body Mass Index - - documented in this encounter Discharge Instructions * Discharge Instructions* Sylvia Carcamo RN - 11/22/2011 1:27 PM EDT [facility] Vascular and Interventional Radiology Biopsy Discharge Instructions Liver, biopsy: call your doctor immediately if you develop a sudden onset of weakness, increased pain or swelling at the biopsy site or heavy bleeding at the biopsy site. Activity And Diet: Go home and rest quietly for the remainder of the day. You may resume your normal activities tomorrow. Resume your usual diet after the procedure. Do not drive, sign any important/legal documents, or make any important decisions for 24 hours following sedation medications. When to call your healthcare provider: If you see any redness, swelling or drainage at the biopsy site. If you develop chills. If you have a fever greater than or equal to 101 degrees Fahrenheit. If you develop pain around the biopsy site. Bandage: Check the dressing/bandaid throughout the day for an increase in drainage. Keep the biopsy site dryfor 24 hours. Replace the bandaid as needed. You may shower 24 hours after the biopsy. Medication: DO NOT take aspirin-containing products, ibuprofen, or blood-thinning medication for the next 24 hours unless your doctor says you may do so. Generally you may use acetaminophen as needed for discomfort unless you have liver disease and are instructed not to take acetaminophen. Biopsy Results The results of your biopsy should be available within 5 business days and will be reported to you by your primary medicare contact specialist or the clinician who ordered the biopsy. Please do not call us for results as we will not have them. If you have not been contacted by your clinician within 5 business days you should call that officefor further information. When to call the Interventional Radiology Department: Please call with any questions or concerns. If it is during regular office hours, please call [phone]. If it is after regular office hours, or on weekends or holidays, please call [phone] and ask to speak to the Business Technology Architect almond grinder for Interventional Radiology. x You have received medication during your procedure to help lesson anxiety and keep you comfortable. These medications affect judgement and reaction time. We recommend that you do not drive, operateequipment, sign any important documents, or smoke unattended for 24 hours following your procedure. Because of the sedation, be careful on stairs, as you may be unsteady on your feet. You may resume your regular diet as tolerated. IV site -- slight redness, or tenderness is normal, you can use a warm compress. If tenderness and redness increases or foul drainage occurs, please contact your M. D. Revised 03/11/11 documented in this encounter Medications at Time [...] nightly. 06/22/2012 documented as of this encounter Progress Notes * Otto Carlos RN - 11/23/2011 11:26 AM EDT Interventional and Vascular Radiology Post-Procedure Call Name: Kaley Sousa Age: 41 y.o. Sex; Male Date of : 1970 (home) PCP AWILAD PELAYO APRN [phone] Date/Time of call: November 23, 2011/11:26 AM/ Procedure: US guided liver bx Contact with patient If not patient, whom? Message left on answering machine: yes Call attempted - unable to contact patient: Are you having pain related to your procedure now? How are you managing your pain? Are you having any other problems related to you procedure? Comments: How would you rate your pain management during the procedure? Comments: Did you have anxiety during your procedure? Comments: Did the discharge instructions you received answer your questions Comments: Did you feel you were given adequate instructions prior to your procedure? Comments: On a scale of 0 to 10, how well were you satisfied with the care you received in Interventional Radiology? Comments: Is there anything we could have done differently? Comments: Nurse Comments: * Bridgett Hamilton PA - 11/22/2011 1:39 PM EDT VIR Note Patient requested note detailing meds given during the procedure (fentanyl and versed IV) and in the recovery room (one dose of percocet) for the practice that manages his suboxone as he is scheduledfor follow up / UA later this week. * Bridgett Hamilton PA - 11/21/2011 1:05 PM EDT PRE-PROCEDURE VIR NOTE Date of : 1970 Age: 41 y.o. 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 US guided liver biopsy requested to evaluate viral load. Pertinent Past Medical/Surgical History: Patient Active Problem List Diagnoses Code ??? Knee pain 719.46J ??? Depression 311L ??? Hepatitis C 070.70A ??? Hyperlipidemia 272.4S ??? Diabetes mellitus 250.00A No Known Allergies Current outpatient prescriptions ordered prior to encounter Medication Sig Dispense Refill ??? ipratropium-albuterol (DUONEB) [...] tablet Take 50 mg by mouth nightly. Pertinent ROS: as per HPI Pertinent Family History: non contributory Social History: n/a Labs: Lab Results Component Value Date WBC 7.3 11/18/2011 HCT 39.7* 11/18/2011 PLATELET 188 11/18/2011 BUN 9* 11/18/2011 Lab Results Component Value Date ALKPHOS 83 11/18/2011 AST 32 11/18/2011 ALBUMIN 3.9 11/18/2011 BILIDIR 0.1 11/18/2011 BILITOT 0.2 11/18/2011 ALT 36 11/18/2011 Imaging: US 11/11/11 Physical Exam: pending ASA: Mallampati Class: Assessment / Plan: US guided liver biopsy Medications to discontinue: none Prophylactic antibiotic: none Planned access site / position: supine 11/22/11 Addendum: The patient's history and physical exam have been reviewed and completed. There has been no interval change from that of the pre-operative history and physical exam done within the last 30 days. Risks and benefits discussed and patient consented to the procedure. Physical Exam Heart: RRR Lungs: clear ASA Classification: 2 Mallampati Classification: II (soft palate, uvula, fauces visible) * Juanita Araujo RN - 11/17/2011 4:51 PM EDT [facility] NURSING DATABASE Name: KALEY SOUSA Date of : 1970 AGE 41 y.o. Address: [address] [address] (home) Mobile: No relevant phone numbers on file. Referring Provider: Bridgett Gar Reason for Visit: Liver biopsy/ architecture HCV load No Known Allergies Pertinent PMH: Patient Active Problem List Diagnoses Code ??? Knee pain 719.46J ??? Depression 311L ??? Hepatitis C 070.70A ??? Hyperlipidemia 272.4S ??? Diabetes mellitus 250.00A Pertinent PSH: Past Surgical History Procedure Date ??? Knee arthroscopy 02/27/11 left knee - work-related injury Date/Procedure Comments: 11/22/11 U/s-guided liver bx OPD [id number] vanessa well Laboratory Results: No results found for this basename: inr No results found for this basename: PT, PTT No results found for this basename: BUN No results found for this basename: creatinine No results found for this basename: k No results found for this basename: PLATELET Medications: Prior to Admission medications Medication Sig Start Date End Date Taking? Authorizing Provider ipratropium-albuterol (DUONEB) 0.5 mg-3 mg(2.5 mg base)/3 mL nebulizer solution Take 3 mLs by nebulization 4 times daily. Historical ProviderMD fluticasone (FLOVENT) 220 mcg/actuation inhaler Inhale 1 puff into the lungs 2 times daily. Historical Provider, FLUoxetine (PROZAC) 10 mg capsule Take 10 mg by mouth daily. Historical ProviderMD nicotine (NICODERM CQ) 21 mg/[address] 1 patch onto the skin every 24 hours. Historical ProviderMD pravastatin (PRAVACHOL) 20 mg tablet Take 20 mg by mouth daily. Historical Provider, hydrOXYzine (ATARAX) 50 mg tablet Take 50 mg by mouth 3 times daily as needed. Historical Provider, doxycycline (VIBRAMYCIN) 100 mg capsule Take 1 capsule by mouth 2 times daily. Take with food, avoid calcium within 1 hour of taking, may cause sunburn 10/28/11 Geri Styles MD buprenorphine-naloxone (SUBOXONE) 8-[address] 2 tablets under the tongue daily. Historical ProviderMD metFORMIN (GLUCOPHAGE) 500 mg tablet Take 500 mg by mouth 2 times daily (with meals). Historical Provider, fluvoxamine (LUVOX) 100 mg tablet Take 100 mg by mouth nightly. Historical Provider, traZODone (DESYREL) 50 mg tablet Take 50 mg by mouth nightly. Historical MD Taya documented in this encounter Procedure Notes * César Yancey MD - 11/22/2011 11:22 AM EDTProcedure(s): PRO NEEDLE BIOPSY LIVER VIR PROCEDURE NOTE Procedure: Ultrasound guided liver biopsy. ACC#: [id number] Indication for Procedure: Hepatitis C, tissue sample needed for viral load. Procedure events and findings:After obtaining informed consent, patient was positionedsupine. Initial localizing scan obtained. A site for bx was chosen and identified on the skin. The skin was marked, prepped, and local anesthesia provided with 1% lidocaine. Maximum sterile barrier technique was used throughout. Due to the painful nature of the procedure, patient received split doses of intravenous fentanyl and versed from the IR nurse while pulse, pressure, and oxygen saturation were continuously monitored. A16ga coaxial needle was directed into the liver with U/S guidance from a right lateral approach. Six 18ga core bxs were obtained. Post biopsy scan was performed with no evidence of hematoma or (with color Doppler) active hemorrhage. Medications: Fentanyl 150 mcg IV, Versed 3 mg IV Contrast: None. Fluoro Dose: None. Est Blood Loss: <10cc. Complications: No immediate Impression: 1. Ultrasound guided liver biopsy obtained with five 18 Ga cores sent to Pathology. 2. Post biopsy scan with no evidence of hematoma or (with color Doppler) active hemorrhage. Fellow:Ashok Pearson MD Attending: Dr. César Yancey, I was present throughout this procedure. documented in this encounter Miscellaneous Notes * Miscellaneous - Provider, Scanning - 11/27/2011 5:17 AM EDT * Miscellaneous - Provider, Scanning - 11/27/2011 5:07 AM EDT documented in this encounter Plan of Treatment Not on file documented as of this encounter Procedures Procedure Name Priority Date/Time Associated Diagnosis Comments SURGICAL PATHOLOGY REPORT Routine 11/22/2011 11:30 AM EDT IR ALL BIOPSY PROCEDURES Routine 11/22/2011 11:19 AM EDT Hep C w/o coma, chronic POCT GLUCOSE Routine 11/22/2011 10:25 AM EDT PLATELET COUNT Routine 11/22/2011 10:15 AM EDT SPECIMEN TO PATHOLOGY (NON-OR) Routine 11/22/2011 10:00 AM EDT documented in this encounter Results * SURGICAL PATHOLOGY REPORT (11/22/2011 11:30 AM EDT) Surgical Pathology Report ? [facility] ? Provider: ?? SABAS TEAGUE ?? Pt. Name: ?? KALEY SOUSA ? Acc #: ?[id number] ?Pt. ? Col Date: ?? 11/22/2011 ? /Sex: ?1970,(41 years),Male ? Rec Date: ?? 11/22/2011 ? LOC: ?3W ? SURGICAL PATHOLOGY ? ---Pathologic Diagnosis--- ? Liver, percutaneous biopsy: ?Chronic hepatitis, consistent with hepatitis C. ?Mild steatohepatitis (see Note). ? NOTE: ??The biopsy shows portal/periportal, predominantly lymphocytic, ? inflammation, grade 2/4; lobular inflammation, grade 1/4. ??Portal fibrosis ? is stage 0-1/4. ?Mild mixed steatosis centering on zone 3 with scattered ballooned ? hepatocytes is present. ??Very focal inflammatory infiltrate ??with ? satellitosis pattern is associated with steatosis. ??Iron stain is negative; ? trichrome stain is evaluated for the final diagnosis. ? CR-0 ? 11/24/11 ? BJM ? 11/25/11 Verified by: ? Scot Pineda MD ? Pathologist ? (Electronic Signature) ? The attending pathologist whose signature appears on this report has ? reviewed all diagnostic slides and has edited the gross and/or ? microscopic portion of the report in rendering the final pathologic ? diagnosis. ? ---Microscopic Description--- ? Slides reviewed, microscopic description not recorded. ? Special stains are performed. ? Block ? Stain ? Result ( Positive / Negative ) ?A1 ? Iron ? See Note. ?A1 ? Trichrome ?See Note. ? ---Gross Description--- ? Labeled/Fixative: ? Labeled with the patient's name, formalin. ? Qty/Size/Weight: ?Seven pink needle core biopsies, ranging ? from 0.3 x 0.1 cm to 1.7 x 0.1 cm. ? Sections/Processin g: ??(T1) ??vms/SNS ? ---Clinical Information--- ? Specimen Submitted: ? A - Percutaneous liver biopsy ? [facility] ? Provider: ?? SABAS TEAGUE ?? Pt. Name: ?? KALEY SOUSA ? Acc #: ?[id number] ?Pt. ? Col Date: ?? 11/22/2011 ? /Sex: ?1970,(41 years),Male ? Rec Date: ?? 11/22/2011 ? LOC: ?3W ? SURGICAL PATHOLOGY ? Clinical History/Diagnosis: ? HCV load / liver biopsy for [facility] 11/22/2011 11:3 0 AM EDT Sabas Teague MD PATHOLOGY/CYTOLOGY O HARINDER RANDY MORALES * IR all biopsy procedures (11/22/2011 11:19 AM EDT) Anatomical Region Laterality Modality X-Ray Angiograph y 11/22/2011 11:1 9 AM EDT Narrative 11/23/2011 7:48 PM EDT ?VIR ?? PROCEDURE NOTE ?Procedure: ?? Ultrasound guided liver biopsy. ? ACC#: ?? [id number] ?Indication ?? for Procedure: Hepatitis C, tissue [...] PROCEDURE NOTE Procedure: Ultrasound guided liverbiopsy. ACC#: [id number] Indication for Procedure: Hepatitis C, tissue sample [...] reviewed by the attending Bridgett Gar MD G IR ORDERABLES * POCT GLUCOSE (11/22/2011 10:25 AM EDT) POC Glucose 103 60 - 199 mg/dL CERNER MILLENNIUM Comment: Supplemental ranges: <110 mg/dL before meals <200 mg/dL all other times of the day Blood specimen (specimen) 11/22/2011 10:25 AM EDT 11/22/2011 10:25 AM EDT Mendez Peralta MD POINT OF CARE TEST ORDERABLES Performing Organization Address [facility] Co de Phone Number RANDY MORALES * Platelet count (11/22/2011 10:15 AM EDT) Platelets 202 145 - 370 x10(3)/mcL RANDY MORALES Blood specimen (specimen) 11/22/2011 10:15 AM EDT 11/22/2011 10:41 AM EDT Narrative Resulting Agency Comment Spec In Lab Roman Alejandra MD HEMATOLOGY ORDERABLE S Performing Organization Address [facility] Co de Phone Number RANDY MORALES * Specimen to Pathology (NON-OR) (11/22/2011 10:00 AM EDT) AP Specimen 11/22/2011 10:0 0 AM EDT 11/22/2011 10:00 AM EDT Narrative RANDY MORALES - 11/22/2011 10:00 AM EDT Specimen requisition ordered. ??Separate Pathology report to follow Sabas Teague MD PATHOLOGY/CYTOLOGY O RDERABLES Performing Organization Address [facility] Co de Phone Number RANDY MORALES documented in this encounter Visit Diagnoses Diagnosis Hepatitis C Unspecified viral hepatitis C without hepatic coma Hep C w/o coma, chronic Chronic hepatitis C without mention of hepatic coma documented in this encounter Administered Medications Inactive Administered Medications - up to 3 most recent administrations Medication Order MAR Action Action Date Dose Rate Site fentaNYL 50mcg/mL injection 25-50 mcg, Intravenous, EVERY 5 MIN PRN, Starting on Mon11/22/11 at 0959, Until Mon11/22/11 at 1121, Pain, Angio/IR (Intra-Procedure), Routine Given 11/22/2011 11:17 AM EDT 150 mcg midazolam (VERSED) injection 0.5-1 mg 0.5-1 mg, Intravenous, EVERY 5 MIN PRN, Starting on Mon11/22/11 at 0959, Until Mon11/22/11 at 1121, Sleep, Angio/IR (Intra-Procedure), Routine Given 11/22/2011 11:18 AM EDT 3 mg OXYcodone-acetaminophen (PERCOCET) 5-325 mg per tablet 1-2 tablet 1-2 tablet, Oral, EVERY 4 HOURS PRN, Starting on Mon11/22/11 at 1127, Until Mon11/23/11 at 0230, Pain, Maximum dose of acetaminophen is 4000 mg from all sources in 24 hours., Routine Given 11/22/2011 11:53 AM EDT 1 tablet sodium chloride 0.9% infusion 75 mL/hr, Intravenous, CONTINUOUS, Starting on Mon11/22/11 at 1015, Until Mon11/22/11 at 1121, Angio/IR (Intra-Procedure) New Bag 11/22/2011 10:15 AM EDT 75 mL/hr 75 mL/hr documented in this encounter Care Teams Router Machine Operator Relationship Specialty Start Date End Date Awilda Pelayo, ROSAURA PCP - General 08/25/11 12/20/11 documented as of this encounter
[2023-09-07 14:58] LABS: ALT 25 U/L (16-63); AST 19 U/L (15-37); Albumin 4.2 g/dL (3.4-5.0); Alkaline Phosphatase 82 U/L (46-116); Anion Gap 11.6 mmol/L (3-11); BUN 13 mg/dL (7-18); Bilirubin, Total 0.25 mg/dL (0.2-1.0); CO2 25.4 mmol/L (21.0-32.0); CREATININE 0.8 mg/dL (0.70-1.30); Calcium 9.3 mg/dL (8.5-10.1); Chloride 100 mmol/L (98-107); Cholesterol 208 mg/dL (<200); Estimated GFR 104.51 (mL/min/1.73m2); Glucose 105 mg/dL (74-106); HDL Cholesterol 38 mg/dL (40-60); Potassium 4.5 mmol/L (3.5-5.1); Sodium 137 mmol/L (136-145); Total Protein 8.1 g/dL (6.4-8.2); Triglyceride 511 mg/dL (<150)
[2023-09-07 15:09] LABS: LDL CHOLESTEROL 86 mg/dL (<100)
[2023-09-08 10:12] LABS: HIV-1/2 Ag & Ab Screen Negative (Negative)
== END 2023-09-07 12:19 | disposition home or self-care (01) ==
LOC: NCHCN 12:18
PROVIDERS: PCP Family Medicine; Visit Provider Family Medicine
DX: K75.81 Nonalcoholic steatohepatitis (NASH) (principal); Z13.6 Encounter for screening for cardiovascular disorders; Z00.00 Encounter for general adult medical examination without abnormal findings
CPT/HCPCS: 80053; 80061; 83721; 87389

== ENCOUNTER → 2023-09-29 00:46 | Outpatient (CLI) | payer MEDICAID, SELFPAY ==
--- NOTE | 2023-09-29 | DI.CTLCSR_ITS ---
Exam(s) CT CHEST LUNG CANCER SCREEN EXAM: CT CHEST LUNG CANCER SCREEN CLINICAL HISTORY: SCREENING FOR LUNG CA, SMOKER, F17.210 TECHNIQUE: Imaging Protocol: Axial computed tomography images with coronal and sagittal reformatted images were created and reviewed COMPARISON: CR CHEST 2 VIEWS PA,LAT from 09/17/2012 FINDINGS: Tracheobronchial tree: Patent where visualized. No bronchiectasis. Pulmonary parenchyma: No consolidation or dominant measurable mass. No architectural distortion. Lung Nodules: None. Mediastinum and Faye: No dominant adenopathy or fluid collection. The esophagus is unremarkable. Thyroid gland: Unremarkable. Lymph nodes: Unremarkable. Pleura: No effusion or pneumothorax. Heart: The heart is not dilated. Coronary artery calcifications are present. No pericardial effusion . Aorta: Thoracic aorta non-dilated.Atherosclerotic calcification is present. Upper abdomen: Unremarkable. Soft Tissues: Gynecomastia, right greater than left. Bones: Within normal limits. IMPRESSION: No pulmonary nodules. Lung RADS Cat 1 - Negative: No nodules and definitely benign nodules Lung-RADS 1.0 CATEGORIES: Category 0 - Prior chest CT exam(s) being located for comparison. Category 1 - Annual screening in 12 months. No nodules or definitely benign nodules. Category 2 - Annual screening in 12 months. Benign appearance. Nodules with low likelihood of becomin g active cancer. Category 3 - 6-month follow-up. Probably benign. Short-term follow-up suggested. Nodules with low lik elihood of becoming active cancer. Category 4A - 3-month follow-up and CT/PET if >8 mm in size. Suspicious finding. Findings which requi re additional testing. Category 4B - Findings which require additional testing and tissue sampling. Suspicious finding. Category 4X - Category 3 or 4 nodules with additional features or imaging findings that increases the suspicion of malignancy. Modifier S- Potentially clinically significant finding. (Non lung cancer) RADIATION DOSE DELIVERED: Total DLP Total DLP DATA REPOSITORY: All CT scans at this facility are submitted to the National Radiology Data Registry (NRDR) Dose Index Registry (DIR) with the [employer] (ACR). RADIATION OPTIMIZATION: All CT scans at this facility use at least one of these dose optimization te chniques: automated exposure control; mA and/or kV adjustment per patient size (includes targeted exa ms where dose is matched to clinical indication); or iterative reconstruction.
--- OUTSIDE RECORDS SUMMARY | 2023-09-29 00:48 | XMS_ITS | Encounter Summary ---
Author Organization [facility] [place] [address] Care Team Providers Care Botany Professor Name Role Phone Wendi Singh MD Primary Care Provider [phone] Encounter Details Date Type Department Care Team (Late st Contact Info) Description 02/12/2019 External Results [place] [address] Vera Clark [facility] [place] [address] Social History Tobacco Use Types Packs/Day Years [...] Type Associated Problems Recent Progress Patient-Stated? Author [facility] Medication Compliance and Understanding Patient Facing Action Plan Yaquelin Lau, [facility] Note: SVR12 through treatment with Mavyret. documented [...] on filedocumented in this encounter Care Teams Botany Professor Relationship Specialty Start Date End Date Wendi Singh MD [address] [place] [address] PCP - General Family Medicine 12/11/14 documented as of this encounter
--- OUTSIDE RECORDS SUMMARY | 2023-09-29 00:48 | XMS_ITS | Encounter Summary ---
Author Organization [facility] Address [facility] [place] [address] Care Team Providers Care Auto Parts Professional Name Role Phone Wendi Singh MD Primary Care Provider [phone] Encounter Details Date Type Department Care Team (Latest Contact Info) Description 10/18/2018 9:25 AM EDT - 10/18/2018 11:59 PM EDT Hospital Encounter XRay at [address] [place] [address] Nahomi Arechiga MD [facility] [place] [address] Status post total left knee replacement Discharge [...] Patient Facing Action Plan No Yaquelin Hutton, [facility] Note: SVR12 through treatment with Mavyret. documented [...] number below. Electronically signed by: Maryana Abraham [facility] ([phone]),at 10/18/2018 10:38 AM Nahomi Arechiga MD IMG DX ORDERABLES documented in this encounter Visit Diagnoses Diagnosis Status post total left knee replacement documented in this encounter Care Teams [employer] Professional Relationship Specialty Start Date End Date Wendi Singh MD [address] [place] [id number] PCP - General Family Medicine 12/11/14 documented as of this encounter
--- OUTSIDE RECORDS SUMMARY | 2023-09-29 00:48 | XMS_ITS | Clinical Summary ---
Author Organization [facility] Address [facility] [place] [address] Care Team Providers Care Curator Herbarium Name Role Phone Wendi Singh MD Primary Care Provider [phone] Allergies Active Allergy Reactions Criticality Noted Date [...] Brother 8 Brother 9 Father (Age 56) [place] Mother (Age 54) cancer Sister 1 Alive [...] Patient Facing Action Plan No Yaquelin Hutton, [facility] Note: SVR12 through treatment with Mavyret. Medical Devices Implanted Type Area Parachute Rigger Device Identifier Shelf Expiration Date Model / Serial / Lot Cement,Bne,Cmw 1,Gnta,40gm ([id number]) - [id number] Implanted:Qty: 1 on 12/02/2013 by Mihir Herrera MD at [facility] IMPLANTS Left: Knee DO NOT USE Depuy Algebra Teacher - 3527 05/27/2016 0 / / [id number] Tray,Felipa,Rp ,Tib,Base,Sz7 ([id number]) (Autoreq) - [id number] Implanted:Qty: 1 on 12/02/2013 by Mihir Herrera MD at [facility] IMPLANTS Left: Knee DO NOT USE Depuy Algebra Teacher - 3527 04/26/2022 7 / / [id number] Inser,Felipa,P s,Fem,Sz7,Lt ([id number]) (Autoreq) - [id number] Implanted:Qty: 1 on 12/02/2013 by Mihir Herrera MD at [facility] IMPLANTS Left: Knee DO NOT USE Depuy Algebra Teacher - 3527 06/27/2023 1503-12-07 / [id number] Felipa Almanza M dl,Augustina,41mm ([id number]) (Autoreq) - [id number] Implanted:Qty: 1 on 12/02/2013 by Mihir Herrera MD at [facility] IMPLANTS Left: Knee DO NOT USE Depuy Algebra Teacher - 3527 08/26/2016 1517-11-30 / [id number] Felipa Roy P s,Rp,Sz7,7mm ([id number]) (Autoreq) - [id number] Implanted:Qty: 1 on 12/02/2013 by Mihir Herrera MD at [facility] IMPLANTS Left: Knee DO NOT USE Depuy Algebra Teacher - 3527 06/26/2018 / [id number] Procedures Procedure Name Priority Date/Time Associated Diagnosis Comments EXTERNAL LAB CBC CMP THYROID RESULTS PANEL Routine 11/11/2018 HEMOGLOBIN A1C Routine 12/04/2013 3:54 AM EDT HIV SCREEN, 4TH GENERATION ([facility]/APD/[facility]) Routine 03/18/2013 9:31 AM EST Chronic hepatitis [...] Hemoglobin A1C 6.7(H) <=5.6 % NICOLAS Bradley [facility] Comment: Reference Range: 4.3 - 5.6% [...] S67-74 Est Avg Gluc 146 mg/dL R[facility]Y [facility] Comment: eAG equivalents for HbA1c percentages: HbA1c(%) ?eAG(mg/dL) 6.0 ?126 6.5 ?140 7.0 ?154 7.5 ?169 8.0 ?183 8.5 ?197 9.0 ?212 9.5 ?226 10.0 ? 240 Limitations: The eAG calculation has not been validated on women, individuals below 18 years old and above 70 years old, and individuals with hemoglobinopathies. Additional resources are available on the ADA website: http://Smart Ecosystems.com/DHMCadacalc Blake KENNEY, Charley J, Gian R, et al. ??Translating the A1C assay into estimated average glucose values. ??Diabetes Care 2008:31(8):0447-4872. Blood specimen (specimen) 12/04/2013 3:54 AM EDT 12/04/2013 10:05 AM EDT Narrative Resulting Agency Comment Spec In Lab Mihir Herrera MD CHEMISTRY ORDERABLES [facility] * HIV (03/18/2013 9:31 AM EST) HIV 1/2 Ab Negative Negative RANDY MORALES Blood specimen (specimen) 03/18/2013 9:31 AM EST 03/18/2013 9:38 AM EST Narrative Resulting Agency Comment Spec In Lab Mendez Peralta MD IMMUNOLOGY ORDERABL ES RANDY MORALES from Last 3 Months or Most Recently Relevant to Health Maintenance Advance Directives Documents on File Type Date Recorded Patient Senior Product Consultant Expl anation Advance Directives and Livin g Will 07/17/2015 10:05 AM 09/30/13 * Full Code (Latest Code Status on File) Date Activated Date Inactivated Comments 12/02/2013 10:13 AM 12/05/2013 7:37 PM Question Answer Comments Does patient have decision m aking capacity? Yes, order is based on Patient wishes. Care Teams Curator Herbarium Relationship Specialty Start Date End Date Wendi Singh MD [address] [place] [address] PCP - General Family Medicine 12/11/14
--- OUTSIDE RECORDS SUMMARY | 2023-09-29 00:48 | XMS_ITS | Encounter Summary ---
Author Organization [facility] [place] [address] Care Team Providers Care Lacrosse Coach Name Role Phone Wendi Singh MD Primary Care Provider [phone] Encounter Details Date Type Department Care Team (Late st Contact Info) Description 12/06/2018 External Results [place] [address] Vera Clark [employer]ET [facility] [place] [address] Social History Tobacco Use Types Packs/Day Years [...] Facing Action Plan Yaquelin Lau, [facility] Note: SVR12 through treatment with Mavyret. documented [...] on filedocumented in this encounter Care Teams Lacrosse Coach Relationship Specialty Start Date End Date Wendi Singh MD [address] [place] [address] PCP - General Family Medicine 12/11/14 documented as of this encounter
--- OUTSIDE RECORDS SUMMARY | 2023-09-29 00:49 | XMS_ITS | Encounter Summary ---
Author Organization [facility] [place] [address] Care Team Providers Care Biztalk Administrator Name Role Phone Wendi Singh MD Primary Care Provider [phone] Encounter Details Date Type Department Care Team (Late st Contact Info) Description 04/12/2018 External Results [place] [address] Vera Clark MOTORCYCLE POLICE [facility] [place] [address] Social History Tobacco Use Types Packs/Day Years [...] Type Associated Problems Recent Progress Patient-Stated? Author [facility] Medication Compliance and Understanding Patient Facing Action Plan Yaquelin Lau, [facility] Note: SVR12 through treatment with Mavyret. [...] on filedocumented in this encounter Care Teams Biztalk Administrator Relationship Specialty Start Date End Date Wendi Singh MD [address] [place] [address] PCP - General Family Medicine 12/11/14 documented as of this encounter
--- OUTSIDE RECORDS SUMMARY | 2023-09-29 00:49 | XMS_ITS | Encounter Summary ---
Author Organization [facility] [place] [address] Care Team Providers Care Call Worker Person Name Role Phone Wendi Singh MD Primary Care Provider [phone] Encounter Details Date Type Department Care Team (Late st Contact Info) Description 03/05/2018 External Results [place] [address] Vera Clark STAMP PRESSER [facility] [place] [address] Social History Tobacco Use Types Packs/Day Years [...] Associated Problems Recent Progress Patient-Stated? Author [facility] Medication Compliance and Understanding Patient Facing Action Plan Yaquelin Lau, [facility] Note: SVR12 through treatment with [...] on filedocumented in this encounter Care Teams Call Worker Person Relationship Specialty Start Date End Date Wendi Singh MD [address] [place] [address] PCP - General Family Medicine 12/11/14 documented as of this encounter
--- OUTSIDE RECORDS SUMMARY | 2023-09-29 00:49 | XMS_ITS | Encounter Summary ---
Author Organization [facility] [place] [address] Care Team Providers Care Indirect Sales Representative Name Role Phone Wendi Singh MD Primary Care Provider [phone] Encounter Details Date Type Department Care Team (Late st Contact Info) Description 04/11/2018 External [place] [address] Vera Clark DENTAL CHAIR ASSEMBLER [facility] [place] [address] Social History Tobacco Use Types Packs/Day Years [...] Type Associated Problems Recent Progress Patient-Stated? Author [facility] Medication Compliance and Understanding Patient Facing Action Plan Yaquelin Lau, [facility] Note: SVR12 through treatment with Mavyret. documented [...] on filedocumented in this encounter Care Teams Indirect Sales Representative Relationship Specialty Start Date End Date Wendi Singh MD [address] [place] [address] PCP - General Family Medicine 12/11/14 documented as of this encounter
--- OUTSIDE RECORDS SUMMARY | 2023-09-29 00:49 | XMS_ITS | Encounter Summary ---
[place] [address] Care Team Providers Care Sales Planner Name Role Phone Wendi Singh MD Primary Care Provider [phone] Reason for Visit * Reason Comments Patient Education Encounter Details Date Type Department Care Team (Late st Contact Info) Description 02/21/2018 Specialty [place] [address] Sujey Johnson Del Social History Tobacco Use [...] calculate BMI. Medication Reconciliation Discrepancies (compared to [facility] med list) - None Medication Adherence Patient [...] beneficiary Provider: plan sponsor pharmacist Visit Type: [facility] Follow-up Method of Contact: by telephone Cognitive [...] preventative care discussed, reminder to refill or hand picker medication discussed, self-monitoring discussed, start medication [...] preventative care discussed, reminder to refill or hand picker medication discussed, self-monitoring discussed, start medication [...] Assessment: Does the patient have a primary overnight caregiver? no Patient has emergency contact on file: Yes Does patient need referral to social and human services assistant: No Does patient need referral to advocacy [...] at the appointment and that [facility] isproviding recommendations (summary located at top of note) for provider review and follow up. Sujey Johnson RPH 02/21/18 11:24 AM documented in this encounter Plan of Treatment Not on file documented as of this encounter Goals Goal Patient Goal Type Associated Problems Recent Progress Patient-Stated? Author [facility] Medication Compliance and Understanding Patient Facing Action Plan No Yaquelin Hutton [facility] Note: SVR12 through treatment with Mavyret. documented as of this encounter Visit Diagnoses Not on filedocumented in this encounter Care Teams Sales Planner Relationship Specialty Start Date End Date Wendi Singh MD [address] [place] [address] PCP - General Family Medicine 12/11/14 documented as of this encounter
--- OUTSIDE RECORDS SUMMARY | 2023-09-29 00:49 | XMS_ITS | Encounter Summary ---
Author Organization [facility] [place] [address] Care Team Providers Care Sales Rep Name Role Phone Ashley Calixto MD Primary Care Provider [phone] Encounter Details Date Type Department Care Team (Late st Contact Info) Description 01/24/2014 Orders [place] [address] Judy Holman APRN [facility] [place]STRO[place] [address] Chronic hepatitis C Social History Tobacco Use [...] ? am) Patient Info ID #: ? [id number] ?: ??[birth year] (43 yrs) Name: ? ZACK LANGLEY ?Visit Date: 05/14/2014 11:39 am Performed By Performed By: ?Ashley Hassan RDMS Attending: ? Chava WEBSTER, Pablo Angel Referred By: ? JUDY HOLMAN EBD TEACHER Service(s) Provided ??[facility] - Abdominal Complete Survey - [id number] ? [id number] Indications ??hepatitis c, please eval for cirrhosis [...] 05/14/2014 11:52 am) Patient Info ID #: [id number] : [birth year] (43 yrs) Name: ZACK LANGLEY Visit Date: 05/14/2014 11:39 am Performed By Performed By: Ashley Hassan RDMS Attending: Pablo Larsen MD Referred By: JUDY HOLMAN APRN Service(s) Provided [facility] - Abdominal Complete Survey - [phone] Indications hepatitis c, please eval for cirrhosis [...] coma documented in this encounter Care Teams Sales Rep Relationship Specialty Start Date End Date Ashley Calixto MD [address] [place] [address] PCP - General 12/21/11 12/10/14 documented as of this encounter
--- OUTSIDE RECORDS SUMMARY | 2023-09-29 00:49 | XMS_ITS | Encounter Summary ---
Author Organization [facility] [place] [address] Care Team Providers Care Publishing Agent Name Role Phone Wendi Singh MD Primary Care Provider [phone] Reason for Visit * Reason Comments Right Knee Pain R TKA 12/02/14 Encounter Details Date Type Department Care Team (Late st Contact Info) Description 12/11/2014 3:50 PM EDT Office [place] [address] Mihir Herrera MD [facility] DR ORTHOPAED[place] [address] Status post total left knee replacement Social [...] replacement documented in this encounter Care Teams Publishing Agent Relationship Specialty Start Date End Date Wendi Singh MD [address] [place] [address] PCP - General Family Medicine 12/11/14 documented as of this encounter
--- OUTSIDE RECORDS SUMMARY | 2023-09-29 00:49 | XMS_ITS | Encounter Summary ---
Author Organization [facility] [place] [address] Care Team Providers Care Professor Of French Name Role Phone Ashley Calixto MD Primary Care Provider [phone] Reason for Referral * Physical Therapy (Routine) - Complete - Patient Will Schedule External Appt Specialty Diagnoses / Procedures Referred By Casey reyes Referred To Contact Physical Therapy Diagnoses S/P total knee arthroplasty, left Michelle Elder APRN [facility] [place] [address] Referral ID Status Reason Start Date Expiration Date Visits Requested Visits Authorized [id number] Complete - Patient Will Schedule External Appt Evaluate and Treat 01/02/2014 07/01/2014 2 2 Reason for Visit * Reason Comments [facility] Of [facility] S/P DOS 12/02/13 LEFT TKA W/C 12/30/10 DOI Encounter Details Date Type Department Care Team (Late st Contact Info) Description 01/02/2014 10:10 AM EST Office [place] [address] Mihir Herrera MD [facility] [place] [address] Michelle Elder APRN [facility] [place] [address] S/P total knee arthroplasty, left (Primary Dx) [...] this encounter Progress Notes * Michelle Kim, GEAR TESTER - 01/02/2014 11:20 AM EST PATIENT NAME: Zack Langley AGE: 43 y.o. MR#: [id number] DATE OF VISIT: 01/02/2014 DATE OF INJURY/ONSET: Case Date: 12/02/2013 Surgeon: Surgeon(s) and Role: * Mihir Herrera MD - Primary * Florencio Davenport PA - Physician Machine Operator Hop Worker Preoperative diagnosis: Left DJD Postoperative diagnosis: Left DJD Procedure(s): @TOTAL KNEE ARTHROPLASTY MODIFIER: ATTUNE STABILIZED ROTATING PLATFORM AmideBioUY STAFF: Today's covering physician is Dr. Herrera. [...] Ashley contacted our pain management team at [facility] during the visit to assist with management of his case. We have also contacted his pain clinic doctor who has been managing his post-operative pain care, Dr. Jo Alves at [facility], to come up with a plan. Dr. [...] Primary documented in this encounter Care Teams Professor Of French Relationship Specialty Start Date End Date Ashley Calixto MD [address] [place] [address] PCP - General 12/21/11 12/10/14 documented as of this encounter
--- OUTSIDE RECORDS SUMMARY | 2023-09-29 00:49 | XMS_ITS | Encounter Summary ---
Author Organization [facility] [place] [address] Care Team Providers Care Power Plant Operators Supervisor Name Role Phone Ashley Calixto MD Primary Care Provider [phone] Encounter Details Date Type Department Care Team (Latest Contact Info) Description 05/14/2014 10:59 AM EDT - 05/14/2014 11:57 AM EDT Hospital En[place] [address] Chronic hepatitis C Social History Tobacco Use [...] ? am) Patient Info ID #: ? [id number] ?: ??[birth year] (43 yrs) Name: ? ZACK LANGLEY ?Visit Date: 05/14/2014 11:39 am Performed By Performed By: ?Ashley Hassan RDMS Attending: ? Chava WEBSTER, Pablo Angel Referred By: ? JUDY HOLMAN STAMP PAD FINISHER Service(s) Provided ??[facility] - Abdominal Complete Survey - [id number] ? [id number] Indications ??hepatitis c, please eval for cirrhosis [...] 05/14/2014 11:52 am) Patient Info ID #: [id number] : [birth year] (43 yrs) Name: ZACK LANGLEY Visit Date: 05/14/2014 11:39 am Performed By Performed By: Ashley Hassan RDMS Attending: Pablo Larsen MD Referred By: JUDY HOLMAN APRN Service(s) Provided [facility] - Abdominal Complete Survey - [phone] Indications hepatitis c, please eval for cirrhosis [...] coma documented in this encounter Care Teams Power Plant Operators Supervisor Relationship Specialty Start Date End Date Ashley Calixto MD [facility] [address] [place] [address] PCP - General 12/21/11 12/10/14 documented as of this encounter
--- OUTSIDE RECORDS SUMMARY | 2023-09-29 00:49 | XMS_ITS | Encounter Summary ---
Author Organization [facility] Address [facility] [place] [address] Care Team Providers Care Principal Developer Name Role Phone Ashley Calixto MD Primary Care Provider Encounter Details Date Type Department Care Team (Latest Contact Info) Description 05/14/2014 11:58 AM EDT - 05/14/2014 11:59 PM EDT Hospital [place] [address] Mendez Peralta MD [facility] [place] [address] Chronic viral hepatitis C; Chronic hepatitis C [...] PM EDT) nRBC % Auto 0.0 % [facility] nRBC Abs Auto 0.000 0.000 - 0.012 x10(3)/mcL [facility] IngenicoIUM Blood specimen (specimen) 05/14/2014 12:17 PM EDT 05/14/2014 12:27 PM EDT Narrative Resulting Agency Comment Spec In Lab Mendez Peralta MD HEMATOLOGY ORDERABL ES Performing Organization Address [facility] Co de Phone Number [facility] * Scan, Peripheral Blood (05/14/2014 12:17 PM EDT) Pathologist [facility] Plat Estimate Normal [facility] RBC Morphology Normal [facility] Blood specimen (specimen) 05/14/2014 12:17 PM EDT 05/14/2014 12:27 PM EDT Narrative Resulting Agency Comment Spec In Lab Mendez Peralta MD HEMATOLOGY ORDERABL ES Performing Organization Address [facility] Phone Number [facility] * HCV Quant Devonte (05/14/2014 12:17 PM EDT) [facility] HCV Viral Load 1,011,586 IU/mL [facility] HCV Viral Load Result: [id number] IU/mL Indication for Study: Hepatitis C Infection Analysis: A quantitiative real time reverse transcriptase PCR assay was performed on extracted viral RNA for the purpose of quantification. Sample: plasma (1 mL minimum volume) Method: Devonte Jose TaqMAN 48 HCV Linear Range: 15 IU/mL - 100,000,000IU/mL (95% CI) Note: This assay is being performed in the [facility] Molecular Pathology Laboratory. Bertin Beach, Ph.D. Director, Molecular Pathology [facility] Comment: [VERIFIED DATE]05.19.14 Verified By:Michelle Ayala I (Electronic Signature) Blood specimen (specimen) 05/14/2014 12:17 PM EDT 05/16/2014 10:59 AM EDT Narrative Resulting Agency Comment Spec In Lab Mendez Peralta MD HEMATOLOGY ORDERABL ES Performing Organization Address [facility] Co de Phone Number [facility] * (ABNORMAL) Differential, Automated (05/14/2014 12:17 PM EDT) [facility] Neutrophils % 54.4 % [facility] Neutr Abs (ANC) 6.84(H) 1.50 - 6.30 [...] intervals supplied above were not validated at [facility]. Results from pediatric patients should be interpreted [...] the following links into your internet browser. [email or web address] Blood specimen (specimen) 05/14/2014 12:17 PM EDT 05/14/2014 12:27 PM EDT Narrative Resulting Agency Comment Spec In Lab Mendez Peralta MD CHEMISTRY ORDERABLE S [facility] MORALES documented in this encounter Visit Diagnoses Diagnosis Chronic viral hepatitis C Chronic hepatitis C without mention of hepatic coma Chronic hepatitis C Chronic hepatitis C without mention of hepatic coma documented in this encounter Care Teams Principal Developer Relationship Specialty Start Date End Date Ashley Calixto MD [address] [place] [address] PCP - General 12/21/11 12/10/14 documented as of this encounter
--- OUTSIDE RECORDS SUMMARY | 2023-09-29 00:49 | XMS_ITS | Encounter Summary ---
Author Organization [facility] [place] [address] Care Team Providers Care Medical Lab Technician Name Role Phone Wendi Singh MD Primary Care Provider [phone] Encounter Details Date Type Department Care Team (Late st Contact Info) Description 03/07/2018 External Results [place] [address] Vera Clark FRONT END DRIVER [facility] [place] [address] Social History Tobacco Use Types Packs/Day Years [...] Type Associated Problems Recent Progress Patient-Stated? Author [facility] Medication Compliance and Understanding Patient Facing Action Plan Yaquelin Lau, [facility] Note: SVR12 through treatment with [...] on filedocumented in this encounter Care Teams Medical Lab Technician Relationship Specialty Start Date End Date Wendi Singh MD [address] [place] [address] PCP - General Family Medicine 12/11/14 documented as of this encounter
--- OUTSIDE RECORDS SUMMARY | 2023-09-29 00:49 | XMS_ITS | Encounter Summary ---
Author Organization [facility] Address [facility] [place] [address] Care Team Providers Care Sheriff Detective Name Role Phone Wendi Singh MD Primary Care Provider [phone] Encounter Details Date Type Department Care Team (Latest Contact Info) Description 12/25/2015 3:48 PM EDT - 12/25/2015 11:59 PM EDT Hospital Encounter XRay at [address] [place] [address] Mihir Herrera MD [facility] [place] [address] Presence of left artificial knee joint Discharge [...] means documented in this encounter Care Teams Sheriff Detective Relationship Specialty Start Date End Date Wendi Singh MD [address] [place] [address] PCP - General Family Medicine 12/11/14 documented as of this encounter
--- OUTSIDE RECORDS SUMMARY | 2023-09-29 00:49 | XMS_ITS | Encounter Summary ---
[place] [address] Care Team Providers Care Software Quality Tester Name Role Phone Wendi Singh MD Primary Care Provider [phone] Reason for Visit * Reason Onset Date Comments Prior Authorization 01/24/2018 Erica Encounter Details Date Type Department Care Team (Late st Contact Info) Description 01/24/2018 Telephone [place] [address] Charissa Dotson, [facility] Prior Authorization (Erica) Social History Tobacco Use [...] Pharmacy with a $3.00 co-pay CASE/REFERENCE # [id number] APPROVAL NOTIFICATION RECEIVED VIA: Fax * Telephone Encounter - Charissa Dotson - 01/24/2018 12:45 PM EST [facility], Medication Prior Authorization Patient: Zack Langley Patient : 1970 Patient Address: [address] [facility] [address] (home) Medication: Mavyret Subscriber Insurance: [place] Medicaid Physician: Vera Clark Sent Via: Fax Guidry: N/A Ref/Case/PA#: N/A Medication Strength Frequency Requested: Mavyret 100-40mg: Take 3 tablets daily Qty/Day Supply: days New Start: Yes Diagnosis & ICD-10 Code: Chronic hepatitis C without hepatic coma, B18.2 documented in this encounter Plan of Treatment Not on file documented as of this encounter Visit Diagnoses Not on filedocumented in this encounter Care Teams Software Quality Tester Relationship Specialty Start Date End Date Wendi Singh MD [address] [place] [address] PCP - General Family Medicine 12/11/14 documented as of this encounter
--- OUTSIDE RECORDS SUMMARY | 2023-09-29 00:49 | XMS_ITS | Encounter Summary ---
[place] [address] Care Team Providers Care Rock Loader Name Role Phone Wendi Singh MD Primary Care Provider [phone] Reason for Visit * Reason Comments Medication Management Encounter Details Date Type Department Care Team (Late st Contact Info) Description 01/26/2018 Specialty [place] [address] Yaquelin Hutton Del Social History Tobacco Use [...] and Zack would like orders sent to [facility] in [place], [place]. We will follow-up with Zack a few daysafter he starts. The medication is currently being mailed to him. No recommendations at this time. Clinic Follow-up needed: no Allergies and Drug intolerance: Allergies Allergen Reactions ??? Isoniazid ? Rash... Special Dietary or Hydration Requirements: no There is no height or weight on file to calculate BMI. Medication Reconciliation Discrepancies (compared to [facility] med list) -none Medication Adherence Demonstrates [...] sponsor pharmacist Visit Type: [facility] [place] Method of Contact: by telephone Cognitive [...] the patient have a primary child care sitter? no Patient has emergency contact on file: Yes Does patient need referral to social worker assistant:no Does patient need referral to advocacy group:no [...] Patient Facing Action Plan No Yaquelin Hutton [facility] Note: SVR12 through treatment with Mavyret. documented as of this encounter Visit Diagnoses Not on filedocumented in this encounter Care Teams Rock Loader Relationship Specialty Start Date End Date Wendi Singh MD [address] [place] [address] PCP - General Family Medicine 12/11/14 documented as of this encounter
--- OUTSIDE RECORDS SUMMARY | 2023-09-29 00:49 | XMS_ITS | Encounter Summary ---
[place] [address] Care Team Providers Care Saw Tailer Name Role Phone Ashley Calixto MD Primary Care Provider [phone] Encounter Details Date Type Department Care Team (Late st Contact Info) Description 02/10/2014 [place] [phone] Hoda Asher Social History Tobacco Use Types [...] 04:15PM GERARD final letter 02/06/2014 02:48PM GERARD 9f f [facility] f/u with Marcia Whitman w/labs and US documented in this encounter Plan of Treatment Not on file documented as of this encounter Visit Diagnoses Not on filedocumented in this encounter Care Teams Saw Tailer Relationship Specialty Start Date End Date Ashley Calixto MD [address] [facility] [address] [place] [address] PCP - General 12/21/11 12/10/14 documented as of this encounter
--- OUTSIDE RECORDS SUMMARY | 2023-09-29 00:49 | XMS_ITS | Encounter Summary ---
[place] [address] Care Team Providers Care Forming Mill Operator Name Role Phone Wendi Singh MD Primary Care Provider [phone] Encounter Details Date Type Department Care Team (Latest Contact Info) Description 06/15/2015 11:00 AM EDT Laboratory Appointment Lab [address] [place] [address] Chronic hepatitis C without hepatic coma Social [...] 11:35 AM EDT) Neutrophils % 44.1 % [facility] Neutr Abs (ANC) 4.13 1.50 - 6.30 x10(3)/mc L [facility] Lymphocytes % 44.3 % [facility] Lymphocytes Abs 4.2(H) 1.0 - 3.6 x10(3)/mc L [facility] Monocytes % 6.6 % [facility] Monocyte Abs 0.6 0.2 - 1.0 x10(3)/mc L [facility] Eosinophils % 4.3 % [facility] Eosinophils Abs 0.4 0.0 - 0.5 x10(3)/mc L [facility] Basophils % 0.6 % [facility] Basophils Abs 0.1 0.0 - [...] MD HEMATOLOGY ORDERABLE S [facility] [place] [address] * Hemogram (06/15/2015 11:35 AM EDT) WBC 9.4 4.0 - 10.0 x10(3)/[facility] RBC 4.98 4.63 - 6.08 x10(6)/[facility] Hemoglobin 14.7 13.7 - 17.5 gm/dL [facility] Hematocrit 41.9 40.0 - 51.0 % [facility] MCV 84.1 79.0 - 92.0 fL [facility] MCH 29.5 25.6 - 32.2 pg [facility] MCHC 35.1 32.0 - 36.5 gm/dL [facility] Platelets 227 145 - 370 x10(3)/[facility] RDWSD 38.9 35.0 - 46.0 [facility] RDWCV 12.9 10.9 - 14.4 % [facility] MPV 11.9 9.0 - 12.0 fL [facility] Blood specimen (specimen) 06/15/2015 11:35 AM EDT 06/15/2015 11:46 AM EDT Narrative Resulting Agency Comment Spec In Lab Natasha Garcia MD HEMATOLOGY ORDERABLE S [facility] [place] [address] * (ABNORMAL) Liver Fibrosis Panel (06/15/2015 11:35 [...] 0.61-0.62 ?A2-A3 0.63-1.00 ?A3 ? severe activity [id number]-[id number] ? 144 ?mg/dL ??106-279 Haptoglobin ? 225 H ?mg/dL ??43-212 Apolipoprotein A1 ? 134 ?mg/dL ??94-176 Total Bilirubin ? 0.3 ?mg/dL ??0.2-1.2 GGT ?27 ?U/L ??3- 95 ALT ?40 ?U/L ??9- 46 Reference ID ?[id number] Footnote ?SEE NOTE The reliability of results [...] The performance characteristics have been determined by [facility], [place]. It has not been cleared or approved by the U.S. Food and Drug Administration. Performance characteristics refer to the analytical performance of the test. StatSheet, the associated logo, PATHEOS and all associated [employer] lopez are the registered trademarks of [employer]. All third democrat lopez - (R) and (TM) - are the property of their respective owners. (C) 0529-1782 [employer]. All rights reserved. Test performed by: ? [facility] ? [id number] ? [place] [address] ? Phone: ??[phone] Director: ??Yordan Ocampo M.D. Test Reported by [facility], [address] [place] [address] Jacob Michelle M.D., Ph.D., Director of Laboratories , [place] [id number] Blood specimen (specimen) 06/15/2015 11:35 AM EDT 06/15/2015 1:37 PM EDT Narrative Resulting Agency Comment Spec In Lab Natasha Garcia MD CHEMISTRY ORDERABLES Performing Organization Address [facility] Co de Phone Number [facility] [place] [address] * Hepatitis B Surface Antigen (06/15/2015 11:35 AM EDT) HepB Surface Ag Negative Negative [facility] Blood specimen (specimen) 06/15/2015 11:35 AM EDT 06/15/2015 11:46 AM EDT Narrative Resulting Agency Comment Spec In Lab Natasha Garcia MD CHEMISTRY ORDERABLES Performing Organization Address [facility] de Phone Number [facility] [place] [address] * Hepatitis B Surface Antibody (06/15/2015 11:35 [...] MD IMMUNOLOGY ORDERABLE S Performing Organization Address [facility] Co de Phone Number [facility] [place] [address] * (ABNORMAL) Hepatitis A Antibody, Total (06/15/2015 11:35 AM EDT) Hepatitis A Ab Total Positive(A ) Negative [facility] Blood specimen (specimen) 06/15/2015 11:35 AM EDT 06/15/2015 11:46 AM EDT Narrative Resulting Agency Comment Spec In Lab Natasha Garcia MD IMMUNOLOGY ORDERABLE S Performing Organization Address City/[facility]/ZIP Co de Phone Number [facility] [place] [address] * Hepatitis C RNA, quantitative, PCR (06/15/2015 11:35 AM EDT) HCV Viral Load 910,856 IU/mL [facility] HCV Viral Load Result: [id number] IU/mL Indication for Study: Hepatitis C Infection Analysis: A quantitiative real time reverse transcriptase PCR assay was performed on extracted viral RNA for the purpose of quantification. Sample: plasma (1 mL minimum volume) Method: Devonte Jose TaqMAN 48 HCV Linear Range: 15 IU/mL - 100,000,000IU/mL (95% CI) Note: This assay is being performed in the [facility] Molecular Pathology Laboratory. Bertin Beach, Ph.D. Director, Molecular Pathology [facility] Comment: [VERIFIED DATE]06.18.15 Verified By:Mary Murphy (Electronic Signature) Blood specimen (specimen) 06/15/2015 11:35 AM EDT 06/16/2015 8:51 AM EDT Narrative Resulting Agency Comment Spec In Lab Natasha Garcia MD IMMUNOLOGY ORDERABLE S [facility] [place] [address] * Prothrombin Time (06/15/2015 11:35 AM EDT) [...] clinical circumstances. INR 0.9 0.9 - 1.1 [facility] Blood specimen (specimen) 06/15/2015 11:35 AM EDT 06/15/2015 11:46 AM EDT Narrative Resulting Agency Comment Spec In Lab Natasha Garcia MD HEMATOLOGY ORDERABLE S [facility] [place] [address] * (ABNORMAL) Comprehensive metabolic panel (non-fasting) (06/15/2015 11:35 AM EDT) Glucose Lvl 97 65 - 199 mg/dL [facility] Comment:Diabetes: >=200 mg/d L plus symptoms BUN 8(L) 10 - 20 mg/dL [facility] Creatinine 0.78(L) 0.80 - 1.50 mg/dL [facility] Comment: Please note that the pediatric reference intervals supplied above were not validated at [facility]. Results from pediatric patients should be interpreted [...] [facility] Estimated GFR >60 >=60 [facility] Comment: This estimated GFR [...] the following links into your internet browser. http://[email or web address]/DHnkdep [email or web address]/DHMCnkf Blood specimen (specimen) 06/15/2015 11:35 AM EDT 06/15/2015 11:46 AM EDT Narrative Resulting Agency Comment Spec In Lab Natasha Garcia MD CHEMISTRY ORDERABLES Performing Organization Address City/State/[facility] Co de Phone Number [facility] [place] [address] documented in this encounter Visit Diagnoses Diagnosis Chronic hepatitis C without hepatic coma documented in this encounter Care Teams Forming Mill Operator Relationship Specialty Start Date End Date Wendi Singh MD [address] [place] [address] PCP - General Family Medicine 12/11/14 documented as of this encounter
--- OUTSIDE RECORDS SUMMARY | 2023-09-29 00:49 | XMS_ITS | Encounter Summary ---
Author Organization [facility] Address [facility] [place] [address] Care Team Providers Care Thread Cutter Name Role Phone Ashley Calixto MD Primary Care Provider [phone] Encounter Details Date Type Department Care Team (Latest Contact Info) Description 01/02/2014 9:42 AM EST - 01/02/2014 11:59 PM [facility] Hospital Encounter XRay at [address] [place] [address] Osteoarthritis of knee Social History Tobacco Use [...] leg documented in this encounter Care Teams Thread Cutter Relationship Specialty Start Date End Date Ashley Calixto MD [facility] [address] [place] [address] PCP - General 12/21/11 12/10/14 documented as of this encounter
--- OUTSIDE RECORDS SUMMARY | 2023-09-29 00:49 | XMS_ITS | Encounter Summary ---
Author Organization [facility] [place] [address] Care Team Providers Care Bran Mixer Name Role Phone Wendi Singh MD Primary Care Provider [phone] Reason for Visit * Reason Comments Follow-up L TKA DOS 12/02/13 Encounter Details Date Type Department Care Team (Late st Contact Info) Description 10/18/2018 10:15 AM EDT Office [place] [phone] [place], MARKO Bean [facility] [place] [address] Status post total left knee replacement Social [...] subsidence, loosening, or periprosthetic complication. Questionnaire Responses: [facility] Surgical Postop Visit 10/18/2018 PROMIS-10 General [...] Patient Facing Action Plan No Yaquelin Hutton, [facility] Note: SVR12 through treatment with Mavyret. documented as of this encounter Visit Diagnoses Diagnosis Status post total left knee replacement documented in this encounter Care Teams Bran Mixer Relationship Specialty Start Date End Date Wendi Singh MD [address] [place] [address] PCP - General Family Medicine 12/11/14 documented as of this encounter
--- OUTSIDE RECORDS SUMMARY | 2023-09-29 00:49 | XMS_ITS | Encounter Summary ---
Author Organization [facility] [place] [address] Care Team Providers Care Electrical Integrator Name Role Phone Juani Singh MD Primary Care Provider [phone] Encounter Details Date Type Department Care Team (Late st Contact Info) Description 06/15/2015 10:00 AM EDT Office [place] [address] Vera Clark APRN [facility] [place] [address] Chronic hepatitis C without hepatic coma Social [...] this encounter Progress Notes * Vera Clark, HEAVY MACHINERY ASSEMBLER - 06/15/2015 10:10 AM EDT Hepatology Follow [...] Vibration Controlled Transient Elastography (VCTE) or Fibroscan [place] Protocol: Patient's identity, procedure and site were [...] daclatasvir, however we know that his insurance ([place] Medicaid) will not cover the medications based [...] Clark APRN Section of Gastroenterology [place] [address] 20 minutes of this 30 minute visit in face to face discussion regarding disease, prognosis and treatment ADDENDUM 06/19/15: Results for ZACK LANGLEY ( ) as of 06/19/2015 09:47 06/15/2015 11:35 Liver Fibrosis Panel FLEXITEST 3 (A) Alk Phos 69 AST 23 ALT 42 HCV Viral Load [id number] Hepatitis A Ab Positive (A) HepB Surface [...] coma documented in this encounter Care Teams Electrical Integrator Relationship Specialty Start Date End Date Juani Singh MD [address] [place] [address] PCP - General Family Medicine 12/11/14 documented as of this encounter
--- OUTSIDE RECORDS SUMMARY | 2023-09-29 00:49 | XMS_ITS | Encounter Summary ---
Author Organization [facility] Address [facility] [place] [address] Care Team Providers Care Cable Tower Operator Name Role Phone Wendi Singh MD Primary Care Provider [phone] Encounter Details Date Type Department Care Team (Latest Contact Info) Description 12/11/2014 2:10 PM EDT - 12/11/2014 11:59 PM EDT Hospital Encounter XRay at [address] [place] [address] Mihir Herrera MD [facility] [place] [address] Status post left knee replacement Discharge Disposition: [...] replacement documented in this encounter Care Teams Cable Tower Operator Relationship Specialty Start Date End Date Wendi Singh MD [address] [place] [address] PCP - General Family Medicine 12/11/14 documented as of this encounter
--- OUTSIDE RECORDS SUMMARY | 2023-09-29 00:49 | XMS_ITS | Encounter Summary ---
[place] [address] Care Team Providers Care Database Marketing Manager Name Role Phone Wendi Singh MD Primary Care Provider [phone] Reason for Visit * Reason Onset Date Comments Hepatitis C 04/05/2018 Encounter Details Date Type Department Care Team (Late st Contact Info) Description 04/05/2018 Telephone [place] [phone] Toya Gongora, RN Hepatitis C Social History [...] Telephone Encounter - Toya Gongora RN - 04/05/2018 3:35 PM EST Called patient to check in. He plans to have EOT blood draw at [facility] this weekend. Will anticipate results in about one week. documented in this encounter Plan of Treatment Not on file documented as of this encounter Goals Goal Patient Goal Type Associated Problems Recent Progress Patient-Stated? Author [facility] Medication Compliance and Understanding Patient Facing Action Plan Yaquelin Lau, [facility] Note: SVR12 through treatment with Mavyret. documented as of this encounter Visit Diagnoses Not on filedocumented in this encounter Care Teams Database Marketing Manager Relationship Specialty Start Date End Date Wendi Singh MD [address] [place] [address] PCP - General Family Medicine 12/11/14 documented as of this encounter
--- OUTSIDE RECORDS SUMMARY | 2023-09-29 00:49 | XMS_ITS | Encounter Summary ---
Author Organization [facility] [place] [address] Care Team Providers Care Nuclear Radiologist Name Role Phone Wendi Singh MD Primary Care Provider [phone] Reason for Visit * Reason Comments Follow-up Encounter Details Date Type Department Care Team (Late st Contact Info) Description 08/19/2016 10:00 AM EDT Office [place] [address] Vera Hong APRN [facility] [place] [address] Chronic hepatitis C without hepatic coma; Alcohol [...] no fibrosis of his liver. His insurance ([place] medicaid) will not cover treatment for under [...] Hong APRN Section of Gastroenterology [place] [address] 25 minutes of this 30 minute visit in face to face discussion regarding disease, prognosis and treatment documented in this encounter Procedure Notes * Vera Hong APRN - 08/19/2016 10:00 AM EDTAssociated Order(s): FIBROSCAN Procedure(s): FIBROSCAN Pre-Procedure Diagnose(s): Chronic hepatitis C without hepatic coma [facility] Liver Fibrosis Assessment Report Indication: Hepatitis C Performed by: VERA HONG APRN Procedure: Vibration Controlled Transient Elastography (VCTE) or Fibroscan [place] Protocol: Patient's identity, procedure and site were [...] Procedure Name Priority Date/Time Associated Diagnosis Comments [id number] Routine 08/19/2016 3:39 PM EDT Chronic hepatitis C without hepatic coma COMPREHENSIVE METABOLIC PANEL (NON-FASTING) Routine 08/19/2016 10:55 AM EDT Chronic hepatitis C without hepatic coma documented in this encounter Results * [id number] (08/19/2016 3:39 PM EDT) Narrative Vera Hong APRN - 08/19/2016 3:39 PM EDT Vera Hong APRN ? 08/19/2016 ??3:39 PM [facility] Liver Fibrosis Assessment Report Indication: ??Hepatitis C Performed by: ??VERA HONG APRN ?? Procedure: Vibration Controlled Transient Elastography (VCTE) or Fibroscan [place] Protocol: Patient's identity, procedure and site were [...] Glucose Lvl 238(H) 65 - 199 mg/dL [facility] Comment:Diabetes: >=200 mg/d L plus symptoms BUN 9(L) 10 - 20 mg/dL [facility] Creatinine 0.73(L) 0.80 - 1.50 mg/dL [facility] Comment: Please note that the pediatric reference intervals supplied above were not validated at [facility]. Results from pediatric patients should be interpreted in conjunction to the patient's age, height and muscle mass. Sodium 136 135 - 145 mmol/L [facility] Potassium 4.3 3.5 - 5.0 mmol/L [facility] Comment: Please note: ??Patients with WBC >100,000 may have falsely elevated Potassium levels. ??For accurate Potassium quantification in these patients send serum separator tube (gold top) for subsequent determinations. ??Contact the Clinical Chemistry Laboratory if there are any questions. Chloride 97(L) 98 - 107 mmol/L [facility] CO2 25 22 - 31 mmol/L [facility] Anion Gap 14 5 - 15 mmol/L [facility] Calcium 9.2 8.5 - 10.5 mg/dL [facility] Total Protein 7.7 6.1 - 8.0 gm/dL [facility] Albumin 4.0 3.2 - 5.2 gm/dL [facility] AST 24 0 - 39 unit/L [facility] ALT 48 0 - 55 unit/L [facility] Alk Phos 82 40 - 120 unit/L [facility] Total Bilirubin <0.2(L) 0.2 - 1.3 mg/dL [facility] Bili, Direct 0.1 0.0 - 0.3 mg/dL [facility] Estimated GFR >60 >=60 [facility] Comment: This estimated GFR [...] the following links into your internet browser. [email or web address] [email or web address] Blood specimen (specimen) 08/19/2016 10:55 AM EDT 08/19/2016 11:03 AM EDT Narrative Resulting Agency Comment Spec In Lab Vera Hong APRN CHEMISTRY ORDERABL ES Performing Organization Address City/State/[facility] Co de Phone Number [facility] [place] [address] documented in this encounter Visit Diagnoses Diagnosis Chronic hepatitis C without hepatic coma Alcohol abuse, in remission Nondependent alcohol abuse, in remission documented in this encounter Care Teams Nuclear Radiologist Relationship Specialty Start Date End Date Wendi Singh MD [address] [place] [address] PCP - General Family Medicine 12/11/14 documented as of this encounter
--- OUTSIDE RECORDS SUMMARY | 2023-09-29 00:49 | XMS_ITS | Encounter Summary ---
Author Organization [facility] [place] [address] Care Team Providers Care Assemblyman Or Woman Name Role Phone Ashley Calixto MD Primary Care Provider [phone] Reason for Visit * Reason Onset Date Comments New Medication Request 12/25/2013 Encounter Details Date Type Department Care Team (Late st Contact Info) Description 12/25/2013 Telephone [place] [address] Mihir Herrera MD [facility] [place] [address] New Medication Request Social History Tobacco Use [...] [facility] will need to [facility] with [...] the prescription recommendedfrom [facility] note from [facility]. It reads: This week 20mg 4x per day for 6 days. Next week is suppose to be the 10 mg 4x per day. Would you like this called into a pharmacy? If so, which one? [facility] Best number to reach person calling? ANA LUISA IS AT WORK, BUT REQUESTED THAT WE CALL ZACK DIRECTLY [phone] The nurse will call you when your prescription is ready, please allow up to 72 hrs for processing. documented in this encounter Plan of Treatment Not on file documented as of this encounter Visit Diagnoses Diagnosis Knee joint replacement by other means- Primary documented in this encounter Care Teams Assemblyman Or Woman Relationship Specialty Start Date End Date Ashley Calixto MD [address] [place] [address] PCP - General 12/21/11 12/10/14 documented as of this encounter
--- OUTSIDE RECORDS SUMMARY | 2023-09-29 00:49 | XMS_ITS | Encounter Summary ---
Author Organization [facility] [place] [address] Care Team Providers Care Molasses Preparer Name Role Phone Ashley Calixto MD Primary Care Provider [phone] Reason for Visit * Reason Comments Aftercare Of Tjr L TKA 12/02/13 Encounter Details Date Type Department Care Team (Late st Contact Info) Description 08/07/2014 3:45 PM EDT Office [place] [address] Mihir Herrera MD [facility] [place] [address] Status post left knee replacement (Primary Dx) [...] replacement documented in this encounter Care Teams Molasses Preparer Relationship Specialty Start Date End Date Ashley Calixto MD [address] [place] [address] PCP - General 12/21/11 12/10/14 documented as of this encounter
--- OUTSIDE RECORDS SUMMARY | 2023-09-29 00:49 | XMS_ITS | Encounter Summary ---
Author Organization [facility] Address [facility] [place] [address] Care Team Providers Care Medical Claims Assistant Name Role Phone Wendi Singh MD Primary Care Provider [phone] Reason for Visit * Reason Comments [facility] Left TKA 12/02/13 Encounter Details Date Type Department Care Team (Late st Contact Info) Description 12/25/2015 5:00 PM EDT Office [place] [address] Brock Colin PA [facility] [address] Status post total left knee replacement Social [...] the operation. No complaints at this point. [facility] Surgical Followup Visit 12/25/2015 PROMIS-10 General Health [...] surgery on same body part No [facility] Response 12/25/2015 KOOS-PS Scores 42 Spine [facility] Response 12/25/2015 KOOS-PS Scores 42 PE: Ambulatory [...] replacement documented in this encounter Care Teams Medical Claims Assistant Relationship Specialty Start Date End Date Wendi Singh MD [address] [place] [address] PCP - General Family Medicine 12/11/14 documented as of this encounter
--- OUTSIDE RECORDS SUMMARY | 2023-09-29 00:49 | XMS_ITS | Encounter Summary ---
[place] [address] Care Team Providers Care Chemistry Tutor Name Role Phone Wendi Singh MD Primary Care Provider [phone] Encounter Details Date Type Department Care Team (Late st Contact Info) Description 04/12/2018 [place] [address] Toya Gongora, RN Social History Tobacco Use [...] Type Associated Problems Recent Progress Patient-Stated? Author [facility] Medication Compliance and Understanding Patient Facing Action Plan No Yaquelin Hutton, [facility] Note: SVR12 through treatment with Mavyret. documented as of this encounter Visit Diagnoses Not on filedocumented in this encounter Care Teams Chemistry Tutor Relationship Specialty Start Date End Date Wendi Singh MD [address] [place] [address] PCP - General Family Medicine 12/11/14 documented as of this encounter
--- OUTSIDE RECORDS SUMMARY | 2023-09-29 00:49 | XMS_ITS | Encounter Summary ---
[place] [address] Care Team Providers Care Conveyor Installer Name Role Phone Wendi Singh MD Primary Care Provider [phone] Reason for Visit * Reason Comments Medication Management Encounter Details Date Type Department Care Team (Late st Contact Info) Description 02/07/2018 Specialty [place] [address] Yaquelin Hutton [facility] Social History Tobacco Use Types Packs/Day Years [...] BMI. Medication Reconciliation Discrepancies (compared to [facility] med list) -none Medication Adherence Patient reported [...] beneficiary Provider: plan sponsor pharmacist Visit Type: [facility] Follow-up Method of Contact: by telephone Cognitive [...] Assessment: Does the patient have a primary human services care specialist? no Patient has emergency contact on file: Yes Does patient need referral to certified social workers in health care: No Does patient need referral to advocacy [...] were made at the appointment and that [facility] isproviding recommendations (summary located at [...] on filedocumented in this encounter Care Teams Conveyor Installer Relationship Specialty Start Date End Date Wendi Singh MD [address] [place] [address] PCP - General Family Medicine 12/11/14 documented as of this encounter
--- OUTSIDE RECORDS SUMMARY | 2023-09-29 00:49 | XMS_ITS | Encounter Summary ---
Author [facility] Address [facility] [place] [address] Care Team Providers Care Metal Sprayer Name Role Phone Ashley Calixto MD Primary Care Provider Encounter Details Date Type Department Care Team (Latest Contact Info) Description 05/14/2014 11:58 AM EDT - 05/14/2014 11:59 PM EDT Hospital [place] [address] Subha Ross MD [facility] [place] [address] Chronic hepatitis C Discharge Disposition: Home Social [...] coma documented in this encounter Care Teams Metal Sprayer Relationship Specialty Start Date End Date Ashley Calixto MD [address] [place] [address] PCP - General 12/21/11 12/10/14 documented as of this encounter
--- OUTSIDE RECORDS SUMMARY | 2023-09-29 00:49 | XMS_ITS | Encounter Summary ---
[place] [address] Care Team Providers Care Revenue Tax Specialist Name Role Phone Ashley Calixto MD Primary Care Provider [phone] Reason for Visit * Reason Onset Date Comments Medication Refill 12/27/2013 Encounter Details Date Type Department Care Team (Late st Contact Info) Description 12/27/2013 Ref[place] [address] Erica Park RN Knee joint replacement by [...] Primary documented in this encounter Care Teams Revenue Tax Specialist Relationship Specialty Start Date End Date Ashley Calixto MD [facility] JAMIL ESTRADA [facility] [address] [place] [address] PCP - General 12/21/11 12/10/14 documented as of this encounter
--- OUTSIDE RECORDS SUMMARY | 2023-09-29 00:49 | XMS_ITS | Encounter Summary ---
Author Organization [facility] [place] [address] Care Team Providers Care Merit System Director Name Role Phone Wendi Singh MD Primary Care Provider [phone] Encounter Details Date Type Department Care Team (Late st Contact Info) Description 05/24/2015 Orders [place] [address] Natasha Garcia MD [facility] [place] [address] Chronic hepatitis C without hepatic coma Social [...] AM EDT) Liver Fibrosis Panel FLEXITEST 3(A) [facility] Comment: FLEXITEST 3 TESTS RESULTS--------UNITS--REF. RANGE--- [...] 0.61-0.62 ?A2-A3 0.63-1.00 ?A3 ? severe activity Hazrw-4-Gcvywxhpczpmp ? 144 ?mg/dL ??106-279 Haptoglobin ? 225 H ?mg/dL ??43-212 Apolipoprotein A1 ? 134 ?mg/dL ??94-176 Total Bilirubin ? 0.3 ?mg/dL ??0.2-1.2 GGT ?27 ?U/L ??3- 95 ALT ?40 ?U/L ??9- 46 Reference ID ?[id number] Footnote ?SEE NOTE The reliability of results is dependent on compliance with the preanalytical and analytical conditions recommended by My Single Pointredictive. The tests have to be deferred for: [...] The performance characteristics have been determined by [facility]. It has not been cleared or approved by the U.S. Food and Drug Administration. Performance characteristics refer to the analytical performance of the test. rPath, the associated logo, UZwan and all associated riskmethods lopez are the registered trademarks of [employer]methods. All third libertarian lopez - (R) and (TM) - are the property of their respective owners. (C) [id number] [employer] Incorporated. All rights reserved. Test performed by: ? [employer] ? [address] [facility] ? [place] [address] ? Phone: ??[phone] Director: ??Yordan Ocampo M.D. Test Reported by [employer], [employer], [address] [place] [address] Jacob Michelle M.D., Ph.D., Director of Laboratories , [facility] [id number] Blood specimen (specimen) 06/15/2015 11:35 AM EDT 06/15/2015 1:37 PM EDT Narrative Resulting Agency Comment Spec In Lab Natasha Garcia MD CHEMISTRY ORDERABLES [facility] [place] [address] * Hepatitis B Surface Antigen (06/15/2015 11:35 AM EDT) HepB Surface Ag Negative Negative [facility] Blood specimen (specimen) 06/15/2015 11:35 AM EDT 06/15/2015 11:46 AM EDT Narrative Resulting Agency Comment Spec In Lab Natasha Garcia MD CHEMISTRY ORDERABLES Performing Organization Address [facility] Co de Phone Number [facility] [place] [address] * Hepatitis B Surface Antibody (06/15/2015 11:35 AM EDT) Pathologist [facility] HepB Surface Ab Positive [facility] Comment: Expected Results: Vaccinated: Positive Unvaccinated: [...] MD IMMUNOLOGY ORDERABLE S Performing Organization Address [facility] Co de Phone Number [facility] [place] [address] * (ABNORMAL) Hepatitis A Antibody, Total (06/15/2015 11:35 AM EDT) Pathologist [facility] Hepatitis A Ab Total Positive(A ) Negative [facility] Blood specimen (specimen) 06/15/2015 11:35 AM EDT 06/15/2015 11:46 AM EDT Narrative Resulting Agency Comment Spec In Lab Natasha Garcia MD IMMUNOLOGY ORDERABLE S Performing Organization Address [facility] Co de Phone Number [facility] [place] [place] [address] * Hepatitis C RNA, quantitative, PCR (06/15/2015 11:35 AM EDT) Pathologist [facility] HCV Viral Load 910,856 IU/mL [facility] HCV Viral Load Result: [id number] IU/mL Indication for Study: Hepatitis C Infection Analysis: A quantitiative real time reverse transcriptase PCR assay was performed on extracted viral RNA for the purpose of quantification. Sample: plasma (1 mL minimum volume) Method: Devonte Jose TaqMAN 48 HCV Linear Range: 15 IU/mL - 100,000,000IU/mL (95% CI) Note: This assay is being performed in the [facility] Molecular Pathology Laboratory. Bertin Beach, Ph.D. Director, Molecular Pathology [facility] Comment: [VERIFIED DATE]06.18.15 Verified By:Mary Murphy (Electronic Signature) Blood specimen (specimen) 06/15/2015 11:35 AM EDT 06/16/2015 8:51 AM EDT Narrative Resulting Agency Comment Spec In Lab Natasha Garcia MD IMMUNOLOGY ORDERABLE S Performing Organization Address [facility] Co de Phone Number [facility] [place] [address] * Prothrombin Time (06/15/2015 11:35 AM EDT) PT 12.6 12.0 - 15.0 sec [facility] Comment: An INR <2.0 indicates adequate [...] clinical circumstances. INR 0.9 0.9 - 1.1 [facility] Blood specimen (specimen) 06/15/2015 11:35 AM EDT 06/15/2015 11:46 AM EDT Narrative Resulting Agency Comment Spec In Lab Natasha Garcia MD HEMATOLOGY ORDERABLE S Performing Organization Address [facility] Co de Phone Number [facility] [place] [address] * (ABNORMAL) Comprehensive metabolic panel (non-fasting) (06/15/2015 11:35 AM EDT) Glucose Lvl 97 65 - 199 mg/dL [facility] Comment:Diabetes: >=200 mg/d L plus symptoms BUN 8(L) 10 - 20 mg/dL [facility] Creatinine 0.78(L) 0.80 - 1.50 mg/dL [facility] Comment: Please note that the pediatric reference intervals supplied above were not validated at [facility]. Results from pediatric patients should be interpreted in conjunction to the patient's age, height and muscle mass. Sodium 136 135 - 145 mmol/L [facility] Potassium 4.4 3.5 - 5.0 mmol/L [facility] Comment: Please note: ??Patients with WBC >100,000 may have falsely elevated Potassium levels. ??For accurate Potassium quantification in these patients send serum separator tube (gold top) for subsequent determinations. ??Contact the Clinical Chemistry Laboratory if there are any questions. Chloride 98 98 - 107 mmol/L [facility] CO2 23 22 - 31 mmol/L [facility] Anion Gap 15 5 - 15 mmol/L [facility] Calcium 9.3 8.5 - 10.5 mg/dL [facility] Total Protein 7.6 6.1 - 8.0 gm/dL [facility] Albumin 4.3 3.2 - 5.2 gm/dL [facility] AST 23 0 - 39 unit/L [facility] ALT 42 0 - 55 unit/L [facility] Alk Phos 69 40 - 120 unit/L [facility] Total Bilirubin 0.2 0.2 - 1.3 mg/dL [facility] Bili, Direct <0.1 0.0 - 0.3 mg/dL [facility] Estimated GFR >60 >=60 [facility] [...] the following links into your internet browser. [email or web address] Blood specimen (specimen) 06/15/2015 11:35 AM EDT 06/15/2015 11:46 AM EDT Narrative Resulting Agency Comment Spec In Lab Natasha Garcia MD CHEMISTRY ORDERABLES [facility] [place] [address] documented in this encounter Visit Diagnoses Diagnosis Chronic hepatitis C without hepatic coma documented in this encounter Care Teams Merit System Director Relationship Specialty Start Date End Date Wendi Singh MD [address] [place] [address] PCP - General Family Medicine 12/11/14 documented as of this encounter
--- OUTSIDE RECORDS SUMMARY | 2023-09-29 00:49 | XMS_ITS | Encounter Summary ---
Author Organization [facility] [place] [address] Care Team Providers Care Receiving Checker Name Role Phone Ashley Calixto MD Primary Care Provider [phone] Encounter Details Date Type Department Care Team (Late st Contact Info) Description 06/05/2014 12:30 PM EDT Follow-Up Occupational Therapy at [address] [address] Bertin Gamez, [facility] PHYSICAL [facility]IC[facility] & [place] [address] Mihir Herrera MD [facility] [place] [address] S/P total knee arthroplasty, left Discharge Disposition: [...] Zack Langley REQUESTED BY Dr. Mihir Herrera [facility] department of o [address] [place] [address] PREPARED BY Bertin Gamez [id number] [place] [address] P: [phone] ASSESSED 06/05/2014 TABLE OF CONTENTS Summary Report 1 Client Profile 1 Standardized Testing 1 Physical Effort Testing 1 Reliability of Pain And Disability Reports Testing 1 Dexterity Testing 1 Litigation Examiner Strength and Handling Testing 1 Fitness Testing [...] not reliable, is there a pattern to ssyv-uoiv-efdnfhpt reports? 3. What are Mr. Antonios physical [...] needed. 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 Signed, Bertin Gamez , OT/L [facility] [id number] [place] [address] P: [phone] FUNCTIONAL CAPACITY EVALUATION SUPPORTING DOCUMENTATION Client ProfileCLIENT [...] with high levels of physical effort, an circuit rider cannot be confident that observed performances represent current abilities. Five-Position Litigation Examiner Testing Mr. Langley underwent a formal screening [...] of Mr. Langley's testing are presented below: Litigation Examiner Span Test 1 Test 2 Test 3 Dom Non Dom Non Dom Non 1 54 37 33 38 39 53 2 110 79 93 84 90 84 3 105 92 95 84 98 98 4 98 67 98 72 98 75 5 78 66 79 65 76 65 Litigation Examiner Span Coefficient of Variation Exceed Cut Point? [...] maximum voluntary effort during testing. During the canceling machine operator strength test, the client was noted to show no signs of physical discomfort. Mr. Langley was observed to demonstrate the following signs of competitive test performance during canceling machine operator strength testing: Muscular recruitment; Requesting to continue when advised to stop; Increased compensatory postures to improve force Litigation Examiner Curve Analysis A second method of screening [...] Right Upper Extremity: Mr. Maurer right hand canceling machine operator scores, produced a well distributed gonzalez curve(S.D. = 21.98). Clinical studies suggest this standard deviation to be indicative of a high level of effort. Left Upper Extremity: Mr. Maurer left hand canceling machine operator scores, produced a well distributed gonzalez curve [...] analysis was used throughout his testing day. [place]-trained work capacity evaluators are trained to look [...] first percentile compared to air force norms Litigation Examiner Strength and Handling TestingGRIP STRENGTH AND HANDLING TESTING Five-Position Litigation Examiner Testing As a function of hand dynamometer testing, information about the client's canceling machine operator strength was collected. Dominant Non-Dominant Client Norm Group Client Norm Group 97.67 109.9 82.33 100.8 Results are in pounds. As can be seen from this table, the client demonstrates the dominant hand asbeing similar to the normative group. His non-dominant hand demonstrates as being similar to the normative group. During the canceling machine operator strength test, the client was noted to show no signs of physical discomfort. Mr. Langley was observed to demonstrate the following signs of competitive test performance during canceling machine operator strength testing: Muscular recruitment; Requesting to continue [...] Flexion Left Side Right Side FPS Active Duavw-kp-Eaorcr Limited Ability: 130 Limited Ability: 130 Left Side Right Side FPS Resisted Painful and Weak Ability: 4-/5 Within Functional Limits Extension Left Side Right Side FPS Active Gfkpn-jw-Bujgyz Limited Ability: -2 Limited Ability: 0 Left [...] left documented in this encounter Care Teams Receiving Checker Relationship Specialty Start Date End Date Ashley Calixto MD [address] [place] [address] PCP - General 12/21/11 12/10/14 documented as of this encounter
--- OUTSIDE RECORDS SUMMARY | 2023-09-29 00:49 | XMS_ITS | Encounter Summary ---
Author Organization [facility] [place] [address] Care Team Providers Care Route Cdl Driver Name Role Phone Wendi Singh MD Primary Care Provider [phone] Reason for Visit * Reason Comments Procedure Encounter Details Date Type Department Care Team (Latest Contact Info) Description 06/15/2015 10:30 AM EDT Procedure visit [place] [address] Vera Clark APRN [facility] [place] [address] Chronic hepatitis C without hepatic coma Social [...] Vibration Controlled Transient Elastography (VCTE) or Fibroscan [place] Protocol: Patient's identity, procedure and site were [...] coma documented in this encounter Care Teams Route Cdl Driver Relationship Specialty Start Date End Date Wendi Singh MD [address] [place] [address] PCP - General Family Medicine 12/11/14 documented as of this encounter
--- OUTSIDE RECORDS SUMMARY | 2023-09-29 00:49 | XMS_ITS | Encounter Summary ---
Author Organization [facility] Address [facility] [place] [address] Care Team Providers Care Manager Equity Name Role Phone Wendi Singh MD Primary Care Provider [phone] Encounter Details Date Type Department Care Team (Late st Contact Info) Description 10/08/2018 Orders [place] [address] Nahomi Arechiga MD [facility] [place] [address] Status post total left knee replacement Social [...] Type Associated Problems Recent Progress Patient-Stated? Author [facility] Medication Compliance and Understanding Patient Facing Action Plan Yaquelin Lau, [facility] Note: SVR12 through treatment with [...] number below. Electronically signed by: Maryana Abraham [facility] ([phone]),at 10/18/2018 10:38 AM Nahomi Arechiga MD IMG DX ORDERABLES documented in this encounter Visit Diagnoses Diagnosis Status post total left knee replacement Status post total left knee replacement documented in this encounter Care Teams Manager Equity Relationship Specialty Start Date End Date Wendi Singh MD [address] [place] [address] PCP - General Family Medicine 12/11/14 documented as of this encounter
--- OUTSIDE RECORDS SUMMARY | 2023-09-29 00:49 | XMS_ITS | Encounter Summary ---
Author Organization [facility] [place] [address] Care Team Providers Care Ball Machine Operator Name Role Phone Wendi Singh MD Primary Care Provider [phone] Reason for Visit * Reason Onset Date Comments Medication Refill 01/22/2018 Encounter Details Date Type Department Care Team (Late st Contact Info) Description 01/22/2018 [place] [address] Vera Clark APRN [facility] [place] [address] Chronic hepatitis C without hepatic coma Social [...] coma documented in this encounter Care Teams Ball Machine Operator Relationship Specialty Start Date End Date Wendi Singh MD [address] [place] [address] PCP - General Family Medicine 12/11/14 documented as of this encounter
--- OUTSIDE RECORDS SUMMARY | 2023-09-29 00:49 | XMS_ITS | Encounter Summary ---
Author Organization [facility] [place] [address] Care Team Providers Care Electronic Induction Hardener Name Role Phone Wendi Singh MD Primary Care Provider [phone] Encounter Details Date Type Department Care Team (Late st Contact Info) Description 02/12/2018 Orders [place] [address] Vera Clark APRN [facility] [place] [address] Chronic hepatitis C without hepatic coma Social [...] Type Associated Problems Recent Progress Patient-Stated? Author [facility] Medication Compliance and Understanding Patient Facing Action Plan Yaquelin Lau, [facility] Note: SVR12 through treatment with Mavyret. documented as of this encounter Visit Diagnoses Diagnosis Chronic hepatitis C without hepatic coma documented in this encounter Care Teams Electronic Induction Hardener Relationship Specialty Start Date End Date Wendi Singh MD [address] [place] [address] PCP - General Family Medicine 12/11/14 documented as of this encounter
--- OUTSIDE RECORDS SUMMARY | 2023-09-29 00:49 | XMS_ITS | Encounter Summary ---
Author Organization [facility] [place] [address] Care Team Providers Care Adobe Maker Name Role Phone Ashley Calixto MD Primary Care Provider [phone] Reason for Referral * Occupational Therapy (Routine) - Closed Specialty Diagnoses / Procedures Referred By Casey reyes Referred To Contact Occupational Therapy Diagnoses S/P total knee arthroplasty, left Mihir Herrera MD [facility] [place] [address] [facility] [address] Referral ID Status Reason Start Date Expiration Date V isits Requested Visits Authorized [id number] Closed Evaluate and Treat 04/04/2014 04/04/2015 1 1 Reason for Visit * Reason Onset Date Comments Other 04/04/2014 Encounter Details Date Type Department Care Team (Late st Contact Info) Description 04/04/2014 [place] [address] Mihir Herrera MD [facility] [place] [address] Other Social History Tobacco Use [...] We received a work capabilities form from kwiry to complete for this patient. In order [...] Primary documented in this encounter Care Teams Adobe Maker Relationship Specialty Start Date End Date Ashley Calixto MD [address] [place] [address] PCP - General 12/21/11 12/10/14 documented as of this encounter
--- OUTSIDE RECORDS SUMMARY | 2023-09-29 00:49 | XMS_ITS | Encounter Summary ---
[place] [address] Care Team Providers Care Combiner Name Role Phone Wendi Singh MD Primary Care Provider [phone] Reason for Visit * Reason Comments Medication Management Encounter Details Date Type Department Care Team (Late st Contact Info) Description 03/23/2018 Specialty [place] [address] Yaquelin Hutton Del Social History Tobacco Use [...] Comprehensive Medication Management (CMM) Zack Langley [address] [facility] [address] Telephone Information: Work Phone Not on file. [...] made at the appointment and that [facility] isproviding recommendations (summary located [...] on filedocumented in this encounter Care Teams Combiner Relationship Specialty Start Date End Date Wendi Singh MD [address] [place] [address] PCP - General Family Medicine 12/11/14 documented as of this encounter
--- OUTSIDE RECORDS SUMMARY | 2023-09-29 00:49 | XMS_ITS | Encounter Summary ---
Author Organization [facility] [place] [address] Care Team Providers Care Plant Production Manager Name Role Phone Wendi Singh MD Primary Care Provider [phone] Reason for Visit * Reason Comments Follow-up Encounter Details Date Type Department Care Team (Late st Contact Info) Description 01/12/2018 10:00 AM EST Office [place] [address] Vera Clark APRN [facility] [place] [address] Chronic hepatitis C without hepatic coma Social [...] this encounter Progress Notes * Vera Clark, CONVEYOR OPERATOR - 01/12/2018 10:00 AM EST Hepatology [...] Clark APRN Section of Gastroenterology [place] [address] 25 minutes of this 30 minute visit [...] 11:54 AM EST) Neutrophils % 43.6 % [facility] Neutr Abs (ANC) 3.84 1.70 - 6.10 x10(3)/[facility] Lymphocytes % 45.8 % [facility] Lymphocytes Abs 4.0(H) 0.9 - 3.2 x10(3)/[facility] Monocytes % 6.7 % [facility] Monocyte Abs 0.6 0.3 - 0.9 x10(3)/[facility] Eosinophils % 2.9 % [facility] Eosinophils Abs 0.3 0.0 - 0.4 x10(3)/[facility] Basophils % 0.8 % [facility] Basophils Abs 0.1 0.0 - 0.1 x10(3)/[facility] Immature Gran % 0.20 % [facility] Comment: Immature granulocytes(IG's)percentage and absolute count will include metamyelocytes, myelocytes, and promyelocytes. Blood smears from CBCs yielding IG's will be scanned manually for concordance. If this scan disagrees with the automated IG or if promyelocytes are noted, a manual differential will be performed. Alexa Gran Abs 0.02 0.00 - 0.04 x10(3)/[facility] Blood specimen (specimen) 01/12/2018 11:54 AM EST 01/12/2018 12:18 PM EST Narrative Resulting Agency Comment Spec In Lab Vera Clark APRN HEMATOLOGY ORDERAB LES [facility] [place] [address] * Hemogram (01/12/2018 11:54 AM EST) WBC 8.8 4.0 - 9.5 x10(3)/[facility] RBC 4.78 4.58 - 5.54 x10(6)/[facility] Hemoglobin 14.1 13.7 - 16.5 gm/dL [facility] Hematocrit 41.3 40.5 - 48.5 % [facility] MCV 86.4 82.9 - 93.1 fL [facility] MCH 29.5 27.5 - 32.1 pg [facility] MCHC 34.1 32.0 - 35.7 gm/dL [facility] Platelets 220 145 - 357 x10(3)/[facility] RDWSD 38.4 36.0 - 45.0 [facility] RDWCV 12.0 11.4 - 13.8 % [facility] MPV 11.3 7.6 - 12.9 fL [facility] nRBC % Auto 0.0 % [facility] nRBC Abs Auto 0.000 0.000 - 0.000 x10(3)/[facility] Blood specimen (specimen) 01/12/2018 11:54 AM EST 01/12/2018 12:18 PM EST Narrative Resulting Agency Comment Spec In Lab Vera Clark APRN HEMATOLOGY ORDERAB LES [facility] [place] [address] * Hepatitis C RNA, quantitative, PCR (01/12/2018 11:54 AM EST) HCV Viral Load 1,072,106 IU/mL [facility] HCV Viral Load Result: [id number] IU/mL Indication for Study: Hepatitis C Infection Analysis: The [employer] RealTime HCV assay is an in vitro reverse corrective therapy aide teacher polymerase chain reaction (RT-PCR)for the quantitation of [...] Agency Comment Spec In Lab Vera Clark CONVEYOR OPERATOR IMMUNOLOGY ORDERAB LES [facility] [place] [address] * (ABNORMAL) Comprehensive metabolic panel (non-fasting) (01/12/2018 [...] of body mass or the acutely ill. http://[employer]/[facility] CITYnkf eGFR 125 >=60 mL/min/1. 73 m?? [facility] Comment: The eGFR was calculated using the CKD-EPI equation. As with all creatinine based estimates of kidney function, eGFR values calculated with the CKD-EPI equation are not accurate in patients with acute kidney failure, extremes of body mass or the acutely ill. http://[employer]/[facility]nkf Blood specimen (specimen) 01/12/2018 11:54 AM EST 01/12/2018 12:18 PM EST Narrative Resulting Agency Comment Spec In Lab Vera Clark APRN CHEMISTRY ORDERABL ES [facility] [place] [address] documented in this encounter Visit Diagnoses Diagnosis Chronic hepatitis C without hepatic coma documented in this encounter Care Teams Plant Production Manager Relationship Specialty Start Date End Date Wendi Singh MD [address] [place] [address] PCP - General Family Medicine 12/11/14 documented as of this encounter
--- OUTSIDE RECORDS SUMMARY | 2023-09-29 00:49 | XMS_ITS | Encounter Summary ---
[place] [address] Care Team Providers Care Service Order Dispatcher Name Role Phone Ashley Calixto MD Primary Care Provider [phone] Encounter Details Date Type Department Care Team (Latest Contact Info) Description 12/26/2013 Anti-Coag Telephone [place] [phone] Yajaira Angel RN S/P total knee arthroplasty, [...] Therapeutic Range: 2.0-3.0 INR: 3.2 Drawn by: [facility] Patient presents with no signs of bleeding [...] left documented in this encounter Care Teams Service Order Dispatcher Relationship Specialty Start Date End Date Ashley Calixto MD [facility] [address] [place] [address] PCP - General 12/21/11 12/10/14 documented as of this encounter
--- OUTSIDE RECORDS SUMMARY | 2023-09-29 00:49 | XMS_ITS | Encounter Summary ---
Author Organization [facility] [place] [address] Care Team Providers Care Wire Welder Name Role Phone Ashley Calixto MD Primary Care Provider [phone] Reason for Visit * Reason Comments Follow-up Encounter Details Date Type Department Care Team (Late st Contact Info) Description 05/14/2014 1:30 PM EDT Follow-Up [place] [phone] CLINIC, Rebecca Mishra APRN [facility] [place] [address] Chronic hepatitis C Discharge Disposition: Home Social [...] this encounter Progress Notes * Rebecca Borrero, SECURITY OPERATIONS ENGINEER - 05/14/2014 1:28 PM EDT Subjective: Patient [...] his liver. [place] with mild fibrosis. ammonium lactate (LAC-HYDRIN) 12 % Lotion; PRINZIDE 20-12.5 mg Tablet; SUBOXONE 2-0.5 mg Film; aspirin 81 mg Tablet, Delayed Release (E.C.); NAPROXEN SODIUM (ALEVE ORAL); METFORMIN HCL (METFORMIN ORAL); pravastatin (PRAVACHOL) 20 mg tablet Allergies Allergen Reactions ??? Isoniazid ? Rash... Family Status Relation Status Age ??? Mother 54 cancer ??? Father 56 OK ??? Sister Alive age 61 ??? Sister [...] due to combination of HCV and [place]. 4. Hepatitis A and B vaccine series. [...] coma documented in this encounter Care Teams Wire Welder Relationship Specialty Start Date End Date Ashley Calixto MD [address] [place] [address] PCP - General 12/21/11 12/10/14 documented as of this encounter
--- OUTSIDE RECORDS SUMMARY | 2023-09-29 00:49 | XMS_ITS | Encounter Summary ---
Author Organization [facility] [place] [address] Care Team Providers Care Wool Broker Name Role Phone Ashley Calixto MD Primary Care Provider [phone] Reason for Visit * Reason Comments [facility] s/p left tka dos 12/02/13 wc doi 12/30/10 Encounter Details Date Type Department Care Team (Late st Contact Info) Description 04/03/2014 3:40 PM EST Office [place] [address] Mihir Herrera MD [facility] [place] [address] S/P total knee arthroplasty, left Discharge Disposition: [...] this encounter Progress Notes * Michelle Kim, BOARDER HAND - 04/03/2014 4:40 PM EST PATIENT NAME: Zack Langley AGE: 43 y.o. 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
--- OUTSIDE RECORDS SUMMARY | 2023-09-29 00:50 | XMS_ITS | Encounter Summary ---
[place] [address] Care Team Providers Care Business Education Instructor Name Role Phone Ashley Calixto MD Primary Care Provider [phone] Encounter Details Date Type Department Care Team (Late st Contact Info) Description 12/11/2013 Orders [place] [address] Meghana Gleason, RN Knee joint replacement by [...] Primary documented in this encounter Care Teams Business Education Instructor Relationship Specialty Start Date End Date Ashley Calixto MD [address] [place] [address] PCP - General 12/21/11 12/10/14 documented as of this encounter
--- OUTSIDE RECORDS SUMMARY | 2023-09-29 00:50 | XMS_ITS | Encounter Summary ---
Author Organization [facility] [place] [address] Care Team Providers Care Boot And Shoe Repairman Name Role Phone Reece Calixto MD Primary Care Provider [phone] Encounter Details Date Type Department Care Team (Late st Contact Info) Description 12/02/2013 7:30 AM EDT - 12/02/2013 9:58 AM EDT Surgery [place] [id number] Charis Herrera MD [facility] [place] [address] TOTAL KNEE ARTHROPLASTY (WRVU 19.6) Social History [...] The INR should be reported to the [facility] at [phone], and you will be informed of any [...] sennakot, to factilitate a bowel movement. An ykrd-skl-xxwvqek medication, miralax can also beused if needed [...] 1. You will have followup appointments at [facility] as indicated in Future Appointments and Orders. You will have an xray prior to those appointments so please come to Radiology, desk 3T, 1 hour BEFORE your appointment for those x- rays. (at 9:10 am on Jan 02) Future Appointments Date Time [facility] 01/02/2014 10:10 AM Charis Herrera [...] Alves on December 10 at 9:15 at [facility]. 3. Keep you appointment with [...] Patient discharged home with VNA services from [facility]. Paperwork faxed to [facility]. * Chu Castro RN - 12/05/2013 3:19 PM EDT Chart reviewed and met with pt who is ready for d/c home. Pt requests [facility] for services. I explained to pt that his WC info was mad available by EVARISTO Ha in OCM at [facility] and I would give this info to [place] to see if they can get payment [...] sitting in a chair comfortably. His fentanyl CLAY PRODUCTS GLAZER was discontinued and he had been wearing [...] up appointment with Dr. Jo Alves at [facility] on 12/10/13 at 0915 4. We will be signing off Plan was discussed with primary team. Please call with any questions or concerns. Consult service will continue to follow patient . Recommendations as above. Please page if further consultation required. HECTOR ATKINSON MD 12/05/2013 Acute Pain Service Pager: [phone] I have seen and examined the patient, providing arceo components as outlined below. I have reviewed the resident???s above note; my evaluation of the patient is below: I was presnt through the fellows evaluation and plans and agree with them. * Ihsan Islas, ICE MAKER - 12/05/2013 12:35 PM EDT Physical Therapy [...] ARTHROPLASTY performed by Charis Herrera MD at [facility] MAIN OR Social History: Patient lives with his GF and 2 young boys and 2 teenagers. 1 flight of stairs to enter. Ind amb ICE MAKER Precautions/Special Considerations: WBAT R L/E Post-operative course: [...] 30 minutes for therapeutic functional IHSAN ISLAS, ICE MAKER Pager: [phone] * Florencio Davenport PA - 12/05/2013 7:30 [...] extremity: Weight bearing as tolerated Wound closure: Mishicot (remove 10-14 days) Dressing changes: Mepilex Silver [...] 12/30/2010 To: L Knee/Low Back Employer: [employer] Ins. Co.: [place] Claim: [id number] Medical Laboratory Scientist: Idalai Chauhan NCM: No NCM as of 12/04/2013 * Tri Briceño RN - 12/04/2013 2:44 PM EDT This is a 43 yo gentleman who underwent L TKA with Dr Herrera on 12/03/13. Pt has [place] [employer] insurance listed however pt explains this is workers comp thru [employer]. CRC confirming information. Met with pt his SO and 2 young children this afternoon. He is OOB and has IV in place at this time. Pain reports mod at this time. Patient lives with his GF and 2 young boys and 2 teenagers. 1 flight of stairs to enter. Ind amb ICE MAKER Pt is motivated and has made good progress with PT. We discussed need for FWW for use at home and he has no preference for vendor although IF WC- they may have specific vendors they prefer. Will await confirmation of WC before completing VNA and DME orders. ADDENDUM: Received confirmation WC. Tel Call to elevator examiner and adjuster Medical Laboratory Scientist: Idalia Chauhan We discussed she has approved securing FWW and 3 in 1 commode from [facility] facility to avoid delay in d/c. She will confirm appropriate in network VNA services. Provided WC with contact info for Chu Castro RN who will be following pt tomorrow. Will secure DME VNA orders still need to be completed once agency finalized. * Ihsan Islas, ICE MAKER - 12/04/2013 1:18 PM EDT Physical Therapy [...] ARTHROPLASTY performed by Charis Herrera MD at [facility] MAIN OR Social History: Patient lives with his GF and 2 young boys and 2 teenagers. 1 flight of stairs to enter. Ind amb ICE MAKER Precautions/Special Considerations: WBAT R L/E Post-operative course: Uneventful Subjective: Patient states ???I want to keep up with my exercises and walks even though the pain ishigh at times!?? Objective: Vitals: SpO2: WNL, HR WNL Most recent Hgb value: 10.3 Pain: Moderate to severe with exercises, moderate with ambulation, CLAY PRODUCTS GLAZER x 2 Strength: 3/5, LAQ Functional Mobility: [...] for therapeutic functional IHSAN ISLAS PTA Pager: [phone] * Florencio Davenport PA - 12/04/2013 6:56 [...] of fentanyl and placed on a fentanyl CLAY PRODUCTS GLAZER with improved control. He has a history [...] of fentanyl and placed on a fentanyl CLAY PRODUCTS GLAZER with improved control now. Recommendations: Pending APS [...] 2 doses of fentanyl 50mcg administered and CLAY PRODUCTS GLAZER of dilaudid started. Pt stated CLAY PRODUCTS GLAZER of dilaudid was ineffective. MD notified and CLAY PRODUCTS GLAZER switched to fentanyl and one time 75 [...] bolus doses of fentanyl and a dilaudid CLAY PRODUCTS GLAZER with essentially maximum settings for pain control. This morning his CLAY PRODUCTS GLAZER was d/c'd and his femoral nerve catheter [...] he was put back on the dilaudid CLAY PRODUCTS GLAZER. He continued to complain of extreme pain and appeared uncomfortable and his CLAY PRODUCTS GLAZER settings were adjusted multiple times until he was on maximum dilaudid CLAY PRODUCTS GLAZER settings. He received a 75mcg bolus of fentanyl, which provided some relief. His diluadid CLAY PRODUCTS GLAZER was d/c'd and he was placed on a fentanyl CLAY PRODUCTS GLAZER with a 25mcg demand dosewhich finally controlled [...] control was eventually achieved with a fentanyl CLAY PRODUCTS GLAZER with high settings. Plan: - APS consult in the morning - continue fentanyl CLAY PRODUCTS GLAZER until adequate PO regimen is established - discussed with orthopedic surgery senior resident Melany Acevedo MD PGY-1 Pager #[phone] 12/04/2013 1:21 AM * Jose Juan Moon [...] list reviewed Assessment: Peripheral nerve catheter and CLAY PRODUCTS GLAZER for post-operative pain control, currently with good pain control. Patient being transitioned to oral pain medications. Patient requests d/c of FNC. Plan: ?? Peripheral nerve catheter was removed. Tip was intact. No bleeding, hematoma or erythema at the insertion site. ?? Patient was instructed to contact Regional Anesthesia Team ([id number]) for any unresolved sensory or motor deficits. ?? Thank you for the opportunity to have participated in the care of this patient. JOSE JUAN MOON MD Regional Team pager [phone] * Charis Herrera MD - 12/03/2013 6:54 [...] oral oxycodone to dilaudid and will maintain CLAY PRODUCTS GLAZER for now until good pain control achieved with oral meds. The patient may need switch from oral oxycodone to dilaudid and will maintain CLAY PRODUCTS GLAZER for now until good pain control achieved with oral meds. Drain was removed, with discontinue IVF and Laurent catheter Weight bearing status of operative extremity: Weight bearing as tolerated Wound closure: Mishicot (remove 10-14 days) Dressing changes: Mepilex Silver [...] Note Patient: Zack Langley s/p Surgery: 12/02/2013 [id number] Procedure(s) (LRB): @TOTAL KNEE ARTHROPLASTY (Left) MODIFIER: ATTUNE STABILIZED ROTATING PLATFORM DEPUY (Left) Surgeon(s) and Role: * Charis Herrera MD - Primary * Florencio Davenport PA - Physician Video Game Producer: 2 Hr 16 Min 40 Sec * [...] intact. Pain 5/10 at this time, dilaudid CLAY PRODUCTS GLAZER controlling pain. Pt has dangled on edge of bed. Patient oriented to room, call gonzalez to bedside. I agree with previous nurse assessment, please see flowsheet for full assessment.Will continue to monitor ELFEGO GARCIA RN * Shanice Spann RN - 12/02/2013 3:00 PM EDT Patient arrived to [facility] via bed from [facility]u s/p L TKA. Patient AOx 4, HRR, , lung sounds diminished, hypoactive bs, lbm 12/01/13, laurent draining clear yellow urine. +csmt to all extremities. Dressing clean dry and intact. Constavac infusing on arrival. Pain 7/10 at this time, 1x block and dilaudid CLAY PRODUCTS GLAZER controlling pain. Patient oriented to room, call [...] Zack Langley Patient Age: 43 y.o. Language: South African Race: White Ethnicity: Not nor Admit date: 12/02/2013 Discharge date and time: 12/05/2013 Attending Physician: Charis Herrera MD Discharge Physician: Charis Herrera MD Follow-up Recommendations for Providers: Please see patient discharge instructions for additional details. Future Appointments Date Time Provider Department Center 01/02/2014 10:10 AM Charis Herrera MD [facility] None Inpatient Provider Contact Information: Charis Herrera MD Joints: [phone] After hours and weekends, call [facility] Community Planner, , and have Orthopedic resident paged. Discharge [...] Primary * Florencio Davenport PA - Physician Video Game Producer History of Presentation: The patient presented to [...] surgical site was marked with a green jackson in the pre-op area Hospital Course: The [...] has a follow up appointment with Dr. oJ Alves at [facility] on 12/10/13 at 0915 4. We will [...] Rate: [95-106] Blood Pressure BP: 129/65 mmHg @upzkmhk19@ Respiratory Rate Resp: 16 Resp: [16-19] SpO2 SpO2: 95 % @kmsjclco91@ Art BP BP (Arterial Line): -- Functional [...] The INR should be reported to the [facility] Orth[facility] clinic at [phone], and you will be informed of any [...] sennakot, to factilitate a bowel movement. An avgt-ooi-exzrkir medication, miralax can also beused if needed [...] 1. You will have followup appointments at [facility] as indicated in Future Appointments and Orders. [...] Alves on December 10 at 9:15 at [facility]. 3. Keep you appointment with you physician who prescribes your suboxone on December 16. He will direct your restart. Future Appointments and Orders Future Appointments: Provider: Department: Dept Phone: Center: 01/02/2014 10:10 AM Charis Herrera MD Orthopaedics [phone] None Joint Appt Questionnaire [facility] Orthopaedics [phone] None Future Orders Please Complete By Expires Referral for Anticoagulation Monitoring [[id number] Custom] Process Instructions: If no progress note charted, please enter Clinical details in comments. Scheduling Instructions: Comments: Questions: Responses: My question or request is: patient going with lovenox bridge. Risk Factors: Responsible Group [facility] ANTICOAG Next due INR 12/06/2013 INR Goal Target End Date 12/30/2013 Referral to Home Health - at DISCHARGE [JNQ3820 CPT(R)] Process Instructions: Scheduling Instructions: Comments: [facility]. PHONE: [phone] FAX: [phone] DISCHARGE DOCUMENTATION FOR VNA SERVICES (INCLUDING THOSE PATIENTS WITH MEDICARE COVERAGE BEING DISCHARGED HOME WITH VNA SERVICES AND THOSE PATIENTS WITH MEDICARE COVERAGE WHO ARE BEING DISCHARGED HOME WITH HOSPICE SERVICES) Zack Langley [address] [facility] [id number] (home) Telephone Information: Narrow Fabric Calenderer: In discussion with the attending physician, it is certified that this patient is under their care and that they, or a nurse practitioner, clinical nurse specialist or physician's medical practice assistant who is working directly with them, [...] for home health services. HOME HEALTH AGENCY: [facility] Home care orders for Total KneeArthroplasty: 1.RN: Draw PT/INR as follows: PER MD ORDERS. Please draw INR daily until INR is 1.4 or greater. Patient will need lovenox injection if INR is less than 1.4 Thereafter, PT/INR: every Monday and PT/INR results to be called and faxed as follows Mon-Mon Ortho anticoagulation (Coumadin) clinic @ [facility]: ; Sat/Sun: if the PT/INR is drawn on the weekend, call the results to the Orthopedic Resident on callat [phone] for Coumadin dose Point of care testing [...] from this patient's PCP: REECE CALIXTO MD [facility] [address] [place] [address] All A agencies which cover the area of patient's residence have been reviewed, either verbally tamir writing, and patient/family have chosen the indicated home health care agency for home services. Questions: Responses: Agency name and contact information [facility] Patient location post discharge home What services are requested Registered Nurse Physical Therapy Start date Responsible MD post discharge contact info Primary Care Provider: REECE CALIXTO MD [phone] * Initial Assessments - Omega Orellana, OT [...] ARTHROPLASTY performed by Charis Herrera MD at [facility] MAIN OR Social History: Social [...] minutes Total timed interventions: 0 minutes Pager: [phone] OMEGA ORELLANA OT 12/05/2013 Occupational Therapy Rehabilitation Department * Consult Note - Abran Chun MD - 12/04/2013 11:05 AM EDT Acute Pain Service Consultation Pt Age: 43 y.o. Date of Consultation: 12/04/2013 Consult Service: Orthopedics Place of Service: [facility] Responsible Attending: Javier Hayden/Associate Provider: Lamar Consultation [...] oral pain meds along with a dilaudid CLAY PRODUCTS GLAZER. He was placed on a fentanyl CLAY PRODUCTS GLAZER the morning of 12/04 and has since [...] ARTHROPLASTY performed by Charis Herrera MD at [facility] MAIN OR ADR/Allergies: Allergies Allergen [...] Intravenous, Q1 Min PRN, Orlando Acevedo MD; CLAY PRODUCTS GLAZER arceo, , Intravenous, Continuous PRN, Orlando Acevedo MD; fentaNYL 50 mcg/mL CLAY PRODUCTS GLAZER 30 mL, , Intravenous, PCAOnly, Orlando Acevedo MD; warfarin (COUMADIN) tablet 7.5 mg, 7.5 mg, Oral, Once, Lis Cameron,HR INTERN; [COMPLETED] enoxaparin (LOVENOX) injection 40 mg, 40 mg, Subcutaneous, Once, Lis Cameron, HR INTERN, 40 mg at 12/04/13 1055 diaZEPam (VALIUM) tablet 5 mg, 5 mg, Oral, Q6H PRN, Lis Cameron, HR INTERN; [DISCONTINUED] HYDROmorphone (DILAUDID) 1 mg/mL CLAY PRODUCTS GLAZER 30 mL, , Intravenous, CLAY PRODUCTS GLAZER Only, Orlando Acevedo MD; [DISCONTINUED] fentaNYL 50 mcg/mL CLAY PRODUCTS GLAZER 30 mL, , Intravenous, CLAY PRODUCTS GLAZER Only, Orlando Acevedo MD, 1,500 mcg at 12/04/13 0050; [COMPLETED] warfarin (COUMADIN) tablet 5 mg, 5 mg, Oral, Once, Ethel, Florencio D, PA, 5 mg at 12/03/13 1719 [COMPLETED] HYDROmorphone (DILAUDID) injection 0.5 mg, 0.5 mg, Intravenous, Once, Lis Cameron,HR INTERN, 0.5 mg at 12/03/13 1419; [COMPLETED] fentaNYL [...] 5 mg, Oral, Q3H PRN, Lis Cameron, HR INTERN; [DISCONTINUED] oxyCODONE (ROXICODONE) immediate release tablet 10 mg, 10 mg, Oral, Q3H PRN, Lis Cameron P, HR INTERN; [DISCONTINUED] oxyCODONE (ROXICODONE) immediate release tablet 15 mg,15 mg, Oral, Q3H PRN, Lis Cameron P, HR INTERN, 15 mg at 12/03/13 1125 [DISCONTINUED] HYDROmorphone (DILAUDID) injection 0.5 mg, 0.5 mg, Intravenous, Once, Alva Cameron, HR INTERN; [DISCONTINUED] HYDROmorphone (DILAUDID) tablet 2-6 mg, 2-6 mg, Oral, Q3H PRN, Lis Cameron, HR INTERN, 6 mg at 12/03/13 1751; [DISCONTINUED] HYDROmorphone (DILAUDID) 1 mg/mL CLAY PRODUCTS GLAZER 30 mL, , Intravenous, CLAY PRODUCTS GLAZER Only, Orlando Acevedo MD, 30 mg at 12/03/13 2130 [DISCONTINUED] diphenhydrAMINE (BENADRYL) injection 25 mg, 25 mg, Intravenous, Q30 Min PRN, Orlando Acevedo MD; [DISCONTINUED] prochlorperazine (COMPAZINE) injection 5 mg, 5 mg, Intravenous, Q30 MinPRN, Orlando Acevedo MD; [DISCONTINUED] nalOXone (NARCAN) injection 0.2 mg, 0.2 mg, Intravenous, Q1 Min PRN, Orlando Acevedo MD; [DISCONTINUED] CLAY PRODUCTS GLAZER arceo, , Intravenous, Continuous PRN, Tiny Acevedo MD [DISCONTINUED] HYDROmorphone (DILAUDID) 1 mg/mL CLAY PRODUCTS GLAZER 30 mL, , Intravenous, CLAY PRODUCTS GLAZER Only, Orlando Acevedo MD; ROpivacaine (NAROPIN) 2 [...] Rectal, Daily PRN, Florencio Davenport, PA; multivitamin Bssl-Um-KT-Min (THERAPEUTIC-M) 27-0.4 mg tablet 1 tablet, 1 [...] and sober since 03/10. Hx IV drugs [id number]. Hx intranasal drugs [id number]. ??? 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 He injured left knee and underwent arthroscopy in February. Knee is not getting better. He continues to be out on worker's compensation.He has hx of IVDU [id number] 2012Hx of intranasal drug use 1986-1999Has 2 tattoos he received in penitentiary in 1989 and 1999.Pierced ear in 1992 at home, shared needles.He sees psychiatrist, Dr. Baron, in [facility].He sees drug counselor Yanira Chahal [...] take full effect) 3. Stop the fentayl CLAY PRODUCTS GLAZER 6 hours after applying the patch 4. Start oxycodone 5-15mg every 3-4 hours I have discussed with the pt the risks and side effects of opioid medications that include, but arenot limited to: group home abuse potential, constipation and sexual dysfunction. Consult service will continue to follow patient. Recommendations are above, please page if further consultation required. HECTOR ATKINSON MD 12/04/2013 # [id number] beeper # [phone]- APS I have seen [...] states pain is a 6/10. Administered fentanyl CLAY PRODUCTS GLAZER. Will continue to monitor. * Plan of [...] Clinical Practice Guideline (CPG) Patient tolerating fentanyl CLAY PRODUCTS GLAZER well with settlings 25 mcg/7 min/1500 mcg. [...] ARTHROPLASTY performed by Charis Herrera MD at [facility] MAIN OR Social History: Patient lives with his GF and 2 young boys and 2 teenagers. 1 flight of stairs to enter. Ind amb ICE MAKER Precautions/Special Considerations: WBAT R L/E Post-operative course: [...] treatment: 0 minutes janelle WU, PT Pager: [phone] * Plan of Care - Elfego Garcia [...] states pain is a 3/10. Administered dilaudid CLAY PRODUCTS GLAZER and oral oxycodone. Will continue to monitor. [...] reports no relief from scheduled tylenol, dilaudid CLAY PRODUCTS GLAZER and oxycodone 15mg. paged, in to see pt and new orders given. Dilaudid CLAY PRODUCTS GLAZER dose increased and one time order for [...] Herrera MD - 12/02/2013 9:39 AM EDT [facility] Operative Note Patient Name: Zack Langley : [id number] MR#: [id number] Case Date: 12/02/2013 Surgeon: Surgeon(s) and Role: * Charis Herrera MD - Primary * Florencio Davenport PA - Physician Video Game Producer Preoperative diagnosis: Left DJD Postoperative diagnosis: Left [...] Implant Name Type Inv. Item Serial No. Document Restorer Lot No. LRB No. Used Action CEMENT,BNE,CMW 1,GNTA,40GM ([id number]) - [id number] IMPLANTS CEMENT,BNE,CMW 1,GNTA,40GM ([id number]) Depuy Machine Adjuster Helper - [id number] Left 1 Implanted TRAY,ATTUNE,RP,TIB,BASE,SZ7 ([id number]) (AUTOREQ) - [id number] IMPLANTS TRAY,ATTUNE,RP,TIB,BASE,SZ7 ([id number]) (AUTOREQ) Depuy Machine Adjuster Helper - [id number] Left 1 Implanted INSER,ATTUNE,PS,FEM,SZ7,LT ([id number]) (AUTOREQ) - [id number] IMPLANTS INSER,ATTUNE,PS,FEM,SZ7,LT ([id number]) (AUTOREQ) Depuy Machine Adjuster Helper - [id number] Left 1 Implanted DIXON,KIRILL ARCHER,KOKO,41MM ([id number]) (AUTOREQ) - [id number] IMPLANTS DIXON,KIRILL ARCHER,KOKO,41MM ([id number]) (AUTOREQ) Depuy Machine Adjuster Helper - [id number] Left 1 Implanted INSER,ATTUNE,PS,RP,SZ7,7MM ([id number]) (AUTOREQ) - [id number] IMPLANTS INSER,ATTUNE,PS,RP,SZ7,7MM ([id number]) (AUTOREQ) Folkstr Tech - [id number] Left 1 Implanted COMPLICATIONS: None. SPECIMENS: Bone [...] surgical site was marked with a green jackson in the pre-op area. DESCRIPTION OF PROCEDURE: [...] mallet. Excess cement was removed with a [place]. We then placed the cement onto the anterior and distal aspects of the femur. The cement was placed on the posterior aspect of the prosthetic condyles. The femoral component was then placed and impacted into position. Excess cement was removed with a [place]. The polyethylene trial was then placed and the knee brought out to full extension where it was held for the entire polymerization time. Cement was then pressurized into the patellar bone and the patellar component placed. The patella was clamped. Excess cement was removed with a [place]. After all cement had hardened, the knee [...] the anesthesiology staff and [facility]. Sequential compression devices were placed. The patient was taken to the postanesthesia care unit in stable condition. There appeared to be no intraoperative complications. Weight bearing status of operative extremity: Weight bearing as tolerated Wound closure: Mishicot (remove 10-14 days) Dressing changes: Mepilex Silver [...] POC Glucose 89 60 - 199 mg/dL [facility] Comment: Supplemental ranges: <140 mg/dL before meals <180 mg/dL all other times of the day Blood specimen (specimen) 12/05/2013 4:18 PM EDT 12/05/2013 4:18 PM EDT Charis Herrera MD POINT OF CARE TEST O HARINDER Performing Organization Address City/[facility]/ZIP Co de Phone Number [facility] * POCT Glucose (12/05/2013 11:35 AM EDT) POC Glucose 100 60 - 199 mg/dL [facility] Comment: Supplemental ranges: <140 mg/dL before meals <180 mg/dL all other times of the day Blood specimen (specimen) 12/05/2013 11:35 AM EDT 12/05/2013 11:35 AM EDT Narrative Authorizing Provider Result Daniela Herrera MD POINT OF CARE TEST O JAYLONERATESSA Performing Organization Address [facility] Co de Phone Number [facility] * POCT Glucose (12/05/2013 7:07 AM EDT) POC Glucose 105 60 - 199 mg/dL [facility] Comment: Supplemental ranges: <140 mg/dL before meals <180 mg/dL all other times of the day Blood specimen (specimen) 12/05/2013 7:07 AM EDT 12/05/2013 7:07 AM EDT Charis Herrera MD POINT OF CARE TEST O RDERATESSA [facility] * (ABNORMAL) Differential, Automated (12/05/2013 4:35 AM [...] [facility] MCHC 34.5 32.0 - 36.5 gm/dL [facility] Platelets 221 145 - 370 x10(3)/mcL [facility] MILLENNIUM RDWSD 39.5 35.0 - 46.0 fL [facility] M[facility]ENNI[facility] RDWCV 12.5 10.9 - 14.4 % [facility] MILLENNIUM MPV 11.2 9.0 - 12.0 fL [facility] Blood specimen (specimen) 12/05/2013 4:35 AM EDT 12/05/2013 4:43 AM EDT Narrative Resulting Agency Comment Spec In Lab Charis Herrera MD HEMATOLOGY ORDERABLE S Performing Organization Address [facility] de Phone Number [facility] * Prothrombin Time (12/05/2013 4:35 AM EDT) PT 14.7 12.5 - 15.5 sec [facility] MILLENNIUM Comment: [facility] Transfusion Committee Guidelines: INR less than 2.0, PTT less than OR equal to 43.5 seconds, or Fibrinogen greater than or equal to 100 mg/dl indicate adequate procoagulant activity for hemostasis in patients without underlying bleeding disorders. INR 1.1 0.9 - 1.1 [facility] MILLENNIUM Blood specimen (specimen) 12/05/2013 4:35 AM EDT 12/05/2013 4:43 AM EDT Narrative Resulting Agency Comment Spec In Lab Charis Herrera MD HEMATOLOGY ORDERABLE S Performing Organization Address [facility] Co de Phone Number [facility] * (ABNORMAL) Basic Metabolic Panel (non-fasting) (12/05/2013 4:35 AM EDT) Glucose Lvl 96 60 - 199 mg/dL [facility] Comment:Diabetes: >=200 mg/d L plus symptoms BUN 11 10 - 20 mg/dL [facility] Creatinine 0.72(L) 0.80 - 1.50 mg/dL CERNER MILLENNIUM Comment: Please note that the pediatric reference intervals supplied above were [place] [facility] Results from pediatric patients should be interpreted [...] the following links into your internet browser. [email or web address] Blood specimen (specimen) 12/05/2013 4:35 AM EDT [...] CARE TEST O RDERABLES Performing Organization Address [facility] Co de Phone Number [facility] * POCT Glucose (12/04/2013 11:43 PM EDT) POC Glucose 94 60 - 199 mg/dL [facility] Comment: Supplemental ranges: <140 mg/dL before meals <180 mg/dL all other times of the day Blood specimen (specimen) 12/04/2013 11:43 PM EDT 12/04/2013 11:43 PM EDT Charis Herrrea MD POINT OF CARE TEST O RDERATESSA Performing Organization Address [facility] de Phone Number [facility] * POCT Glucose (12/04/2013 7:29 PM EDT) POC Glucose 120 60 - 199 mg/dL [facility] Comment: Supplemental ranges: <140 mg/dL before meals <180 mg/dL all other times of the day Blood specimen (specimen) 12/04/2013 7:29 PM EDT 12/04/2013 7:29 PM EDT Charis Herrera MD POINT OF CARE TEST O RDERATESSA Performing Organization Address [facility] de Phone Number [facility] * POCT Glucose (12/04/2013 4:12 PM EDT) POC Glucose 108 60 - 199 mg/dL [facility] Comment: Supplemental ranges: <140 mg/dL before meals <180 mg/dL all other times of the day Blood specimen (specimen) 12/04/2013 4:12 PM EDT 12/04/2013 4:12 PM EDT Charis Herrera MD POINT OF CARE TEST O RDERABLES Performing Organization Address [facility] Co de Phone Number [facility] * POCT Glucose (12/04/2013 11:41 AM EDT) POC Glucose 136 60 - 199 mg/dL [facility] Comment: Supplemental ranges: <140 mg/dL before meals <180 mg/dL all other times of the day Blood specimen (specimen) 12/04/2013 11:41 AM EDT 12/04/2013 11:41 AM EDT Charis Herrera MD POINT OF CARE TEST O HARINDER Performing Organization Address [facility] de Phone Number [facility] * POCT Glucose (12/04/2013 7:07 AM EDT) POC Glucose 126 60 - 199 mg/dL [facility] Comment: Supplemental ranges: <140 mg/dL before meals <180 mg/dL all other times of the day Blood specimen (specimen) 12/04/2013 7:07 AM EDT 12/04/2013 7:07 AM EDT Charis Herrera MD POINT OF CARE TEST O HARINDER Performing Organization Address [facility] de Phone Number [facility] * (ABNORMAL) Hemoglobin A1c (12/04/2013 3:54 AM EDT) Hemoglobin A1C 6.7(H) <=5.6 % [facility] Comment: Reference Range: 4.3 - 5.6% [...] Mellitus, Diabetes Care 2013; 36: Suppl. 1, B97-05 Est Avg Gluc 146 mg/dL [facility] Comment: eAG equivalents for HbA1c percentages: HbA1c(%) ?eAG(mg/dL) 6.0 ?126 6.5 ?140 7.0 ?154 7.5 ?169 8.0 ?183 8.5 ?197 9.0 ?212 9.5 ?226 10.0 ? 240 Limitations: The eAG calculation has not been validated on women, individuals below 18 years old and above 70 years old, and individuals with hemoglobinopathies. Additional resources are available on the ADA website: [email or web address] Blake KENNEY, Charley J, Gian R, et al. ??Translating the A1C assay into estimated average glucose values. ??Diabetes Care 2008:31(8):3984-6863. Blood specimen (specimen) 12/04/2013 3:54 AM EDT [...] MD HEMATOLOGY ORDERABLE S Performing Organization Address [facility] de Phone Number RANDY MORALES * Prothrombin Time (12/04/2013 3:54 AM EDT) PT 13.2 12.5 - 15.5 sec [facility] Comment: [facility] Transfusion Committee Guidelines: INR less [...] MD HEMATOLOGY ORDERABLE S Performing Organization Address [facility] de Phone Number RANDY MORALES * (ABNORMAL) Basic Metabolic Panel (non-fasting) (12/04/2013 3:54 AM EDT) Glucose Lvl 105 60 - 199 mg/dL [facility] Comment:Diabetes: >=200 mg/d L plus symptoms BUN 10 10 - 20 mg/dL [facility] Creatinine 0.80 0.80 - 1.50 mg/dL [facility] Comment: Please note that the pediatric reference intervals supplied above were [place] validated [place] [facility] Results from pediatric patients should be interpreted [...] the following links into your internet browser. [email or web address] Blood specimen (specimen) 12/04/2013 3:54 AM EDT 12/04/2013 4:27 AM EDT Narrative Resulting Agency Comment Spec In Lab Charis Herrera MD CHEMISTRY ORDERABLES Performing Organization Address [facility] Co de Phone Number [facility] * POCT Glucose (12/04/2013 3:45 AM EDT) POC Glucose 115 60 - 199 mg/dL [facility] Comment: Supplemental ranges: <140 mg/dL before meals <180 mg/dL all other times of the day Blood specimen (specimen) 12/04/2013 3:45 AM EDT 12/04/2013 3:45 AM EDT Charis Herrera MD POINT OF CARE TEST O RDERABLES Performing Organization Address [facility] Co de Phone Number [facility] * POCT Glucose (12/03/2013 11:42 PM EDT) POC Glucose 115 60 - 199 mg/dL [facility] Comment: Supplemental ranges: <140 mg/dL before meals <180 mg/dL all other times of the day Blood specimen (specimen) 12/03/2013 11:42 PM EDT 12/03/2013 11:42 PM EDT Charis Herrera MD POINT OF CARE TEST O RDERATESSA Performing Organization Address [facility] de Phone Number [facility] * POCT Glucose (12/03/2013 7:22 PM EDT) POC Glucose 102 60 - 199 mg/dL [facility] Comment: Supplemental ranges: <140 mg/dL before meals <180 mg/dL all other times of the day Blood specimen (specimen) 12/03/2013 7:22 PM EDT 12/03/2013 7:22 PM EDT Charis Herrera MD POINT OF CARE TEST O RDERATESSA Performing Organization Address [facility] de Phone Number [facility] * POCT Glucose (12/03/2013 5:20 PM EDT) POC Glucose 115 60 - 199 mg/dL [facility] Comment: Supplemental ranges: <140 mg/dL before meals <180 mg/dL all other times of the day Blood specimen (specimen) 12/03/2013 5:20 PM EDT 12/03/2013 5:20 PM EDT Charis Herrera MD POINT OF CARE TEST O RDERATESSA Performing Organization Address [facility] de Phone Number [facility] * POCT Glucose (12/03/2013 4:37 PM EDT) POC Glucose 81 60 - 199 mg/dL [facility] Comment: Supplemental ranges: <140 mg/dL before meals <180 mg/dL all other times of the day Blood specimen (specimen) 12/03/2013 4:37 PM EDT 12/03/2013 4:37 PM EDT Charis Herrera MD POINT OF CARE TEST O RDERATESSA Performing Organization Address [facility] Co de Phone Number [facility] * POCT Glucose (12/03/2013 4:21 PM EDT) POC Glucose 70 60 - 199 mg/dL [facility] Comment: Supplemental ranges: <140 mg/dL before meals <180 mg/dL all other times of the day Blood specimen (specimen) 12/03/2013 4:21 PM EDT 12/03/2013 4:21 PM EDT Charis Herrera MD POINT OF CARE TEST O HARINDER Performing Organization Address [facility] de Phone Number [facility] * POCT Glucose (12/03/2013 11:58 AM EDT) POC Glucose 119 60 - 199 mg/dL [facility] Comment: Supplemental ranges: <140 mg/dL before meals <180 mg/dL all other times of the day Blood specimen (specimen) 12/03/2013 11:58 AM EDT 12/03/2013 11:58 AM EDT Charis Herrera MD POINT OF CARE TEST O HARINDER Performing Organization Address [facility] de Phone Number [facility] * POCT Glucose (12/03/2013 7:19 AM EDT) POC Glucose 139 60 - 199 mg/dL [facility] Comment: Supplemental ranges: <140 mg/dL before meals <180 mg/dL all other times of the day Blood specimen (specimen) 12/03/2013 7:19 AM EDT 12/03/2013 7:19 AM EDT Charis Herrera MD POINT OF CARE TEST O HARINDER Performing Organization Address [facility] de Phone Number [facility] * (ABNORMAL) Differential, Automated (12/03/2013 4:21 AM EDT) Neutrophils % 72.1(H) 34.0 - 71.0 % [facility] Neutr Abs (ANC) 9.42(H) 1.50 - 6.30 [...] MD HEMATOLOGY ORDERABLE S Performing Organization Address [facility] de Phone Number [facility] * Prothrombin Time (12/03/2013 4:21 AM EDT) PT 13.8 12.5 - 15.5 sec [facility]ER [facility] Comment: [facility] Transfusion Committee Guidelines: INR less than 2.0, PTT less than OR equal to 43.5 seconds, or Fibrinogen greater than or equal to 100 mg/dl indicate adequate procoagulant activity for hemostasis in patients without underlying bleeding disorders. INR 1.0 0.9 - 1.1 [facility] Blood specimen (specimen) 12/03/2013 4:21 AM EDT 12/03/2013 4:27 AM EDT Narrative Resulting Agency Comment Spec In Lab Charis Herrera MD HEMATOLOGY ORDERABLE S Performing Organization Address City/State/[facility] Co de Phone Number [facility] * (ABNORMAL) Basic Metabolic Panel (non-fasting) (12/03/2013 4:21 AM EDT) Glucose Lvl 169 60 - 199 mg/dL [facility] Comment:Diabetes: >=200 mg/d L plus symptoms BUN 13 10 - 20 mg/dL [facility] Creatinine 0.81 0.80 - 1.50 mg/dL [facility] Comment: Please note that the pediatric reference intervals supplied above were [place] validated [place] [facility] Results from pediatric patients should be interpreted [...] the following links into your internet browser. [email or web address] Blood specimen (specimen) 12/03/2013 4:21 AM EDT [...] CARE TEST O RDERATESSA Performing Organization Address [facility] de Phone Number [facility] * POCT Glucose (12/03/2013 12:06 AM EDT) POC Glucose 154 60 - 199 mg/dL [facility] Comment: Supplemental ranges: <140 mg/dL before meals <180 mg/dL all other times of the day Blood specimen (specimen) 12/03/2013 12:06 AM EDT 12/03/2013 12:06 AM EDT Charis Herrera MD POINT OF CARE TEST O HARINDER Performing Organization Address [facility] de Phone Number [facility] * POCT Glucose (12/02/2013 8:51 PM EDT) POC Glucose 164 60 - 199 mg/dL [facility] Comment: Supplemental ranges: <140 mg/dL before meals <180 mg/dL all other times of the day Blood specimen (specimen) 12/02/2013 8:51 PM EDT 12/02/2013 8:51 PM EDT Charis Herrera MD POINT OF CARE TEST O HARINDER Performing Organization Address [facility] de Phone Number [facility] * (ABNORMAL) POCT Glucose (12/02/2013 7:09 PM EDT) POC Glucose 226(H) 60 - 199 mg/dL [facility] Comment: Supplemental ranges: <140 mg/dL before meals <180 mg/dL all other times of the day Blood specimen (specimen) 12/02/2013 7:09 PM EDT 12/02/2013 7:09 PM EDT Charis Herrera MD POINT OF CARE TEST O RDERATESSA Performing Organization Address [facility] de Phone Number RANDY KNAPPENNIUM * Prothrombin Time (12/02/2013 4:46 PM EDT) PT 13.0 12.5 - 15.5 sec [facility]Y [facility] Comment: [facility] Transfusion Committee Guidelines: INR less [...] MD HEMATOLOGY ORDERABLE S Performing Organization Address [facility] de Phone Number RANDY [facility] * (ABNORMAL) POCT Glucose (12/02/2013 4:11 PM EDT) POC Glucose 207(H) 60 - 199 mg/dL [facility] Comment: Supplemental ranges: <140 mg/dL before meals <180 mg/dL all other times of the day Blood specimen (specimen) 12/02/2013 4:11 PM EDT 12/02/2013 4:11 PM EDT Charis Herrera MD POINT OF CARE TEST O RDERABLES Performing Organization Address [facility] de Phone Number RANDY [facility] * POCT Glucose (12/02/2013 10:06 AM EDT) POC Glucose 165 60 - 199 mg/dL RANDY [facility] Comment: Supplemental ranges: <140 mg/dL before meals <180 mg/dL all other times of the day Blood specimen (specimen) 12/02/2013 10:06 AM EDT 12/02/2013 10:06 AM EDT Charis Herrera MD POINT OF CARE TEST O RDERABLES Performing Organization Address [facility] Co de Phone Number [facility] * Surgical Pathology Report (12/02/2013 9:56 AM EDT) FINAL DIAGNOSIS (AP) ? [facility] ? Provider: ?? CHARIS HERRERA ?? Pt. Name: ?? MERRYZACK VINCENT ? Acc #: ?[id number] ?Pt. ? Col Date: ?? 12/02/2013 ? [...] DJD ? Clinical Diagnosis: ? Left DJD 12/03/2013 10:[address] [facility] STRUCTURE / Unknown 12/02/2013 9:56 AM EDT 12/02/2013 9:56 AM EDT Charis Herrera MD PATHOLOGY/CYTOLOGY O HARINDER Performing Organization Address [facility] de Phone Number RANDY MORALES [facility] [place] [address] * Specimen to Pathology (surgical or derm) (12/02/2013 9:31 AM EDT) AP Specimen 12/02/2013 9:31 AM EDT 12/02/2013 9:31 AM EDT Narrative RANDY MORALES - 12/02/2013 9:31 AM EDT Specimen requisition ordered. ??Separate Pathology report to follow Charis Herrera MD PATHOLOGY/CYTOLOGY O HARINDER Performing Organization Address [facility] de Phone Number RANDY MORALES * POCT Glucose (12/02/2013 7:26 AM EDT) POC Glucose 139 60 - 199 mg/dL [facility]ANDY MORALES Comment: Supplemental ranges: <140 mg/dL before meals <180 mg/dL all other times of the day Blood specimen (specimen) 12/02/2013 7:26 AM EDT 12/02/2013 7:26 AM EDT Charis Herrera MD POINT OF CARE TEST O HARINDER Performing Organization Address [facility] de Phone Number RANDY MORALES * APTT (12/02/2013 7:25 AM EDT) PTT 29 25 - 35 sec [facility] Comment: Recommended therapeutic PTT range for full dose unfractionated heparin is 80-114 seconds. Blood specimen (specimen) 12/02/2013 7:25 AM EDT 12/02/2013 7:27 AM EDT Narrative Resulting Agency Comment Spec In Lab Sachi Fontanez MD HEMATOLOGY ORDERABLE S Performing Organization Address [facility] de Phone Number RANDY MORALES * Prothrombin Time (12/02/2013 7:25 AM EDT) PT 12.7 12.5 - 15.5 sec CERNER [facility]ILLENNIUM Comment: [facility] Transfusion Committee Guidelines: INR less than 2.0, PTT less than OR equal to 43.5 seconds, or Fibrinogen greater than or equal to 100 mg/dl indicate adequate procoagulant activity for hemostasis in patients without underlying bleeding disorders. INR 0.9 0.9 - 1.1 [facility] Blood specimen (specimen) 12/02/2013 7:25 AM EDT 12/02/2013 7:27 AM EDT Narrative Resulting Agency Comment Spec In Lab Sachi Fontanez MD HEMATOLOGY ORDERABLE S Performing Organization Address [facility] Phone Number RANDY MORALES documented in this [...] 0807 (Given - Provider: Marcelina Sims RN) fentaNYL (DURAGESIC) 50 mcg/hr patch 1 patch [...] Routine 2002 (Given - Provider: Naresh Rojo, ELMA) fentaNYL 50mcg/mL injection (COMPLETED) 50 mcg, Intravenous, [...] Discontinued, Routine 0819 (Given - Provider: Elfego Gracia RN) 0819 (Given - Provider: Elfego Garcia [...] dose on Mon12/02/13 at 1900, Until Discontinued 08 (Given - Provider: Elfego Garcia RN)1712 (Not Given - Provider: Elfego Garcia RN - Reason: See comment - Comment: BG 81) 0819 (Given - Provider: Elfego Garcia RN)1655 (Not Given - Provider: Elfego Garcia RN - Reason: Order parameters not met - Comment: BG 108) 0807 (Given - Provider: Marcelina Sims RN)1703 (Given - Provider: Marcelina Sims RN) multivitamin Mzld-Xx-YI-Min (THERAPEUTIC-M) 27-0.4 mg tablet 1 tablet (CANCELED) [...] RN)2117 (Given - Provider: Naresh Rojo, ELMA) 818 (Given - Provider: Elfego Garcia RN)2037 [...] RN)2117 (Given - Provider: Naresh Rojo, ELMA) 818 (Given - Provider: Elfego Garcia RN)2037 (Given - Provider: Elfego Garcia RN) 0808 (Given - Provider: Marcelina Sims RN) sodium chloride 0.9 % flush 5 mL (CANCELED) 5 mL, Intravenous, 2 TIMES DAILY, First dose on Mon12/02/13 at 1030, Until Discontinued, Recovery (Recovery-Hospital Unit), Routine 822 (Given - Provider: Elfego Garcia RN)2005 (Given - Provider: Naresh Rojo, ELMA) 08 (Given - Provider: Elfego Garcia RN)2038 (Given - Provider: Elfego Garcia RN) 0808 (Given - Provider: Marcelina Sims, ELMA) warfarin (COUMADIN) tablet 5 mg (COMPLETED) 5 [...] Order 12/03/2013 12/04/2013 12/05/2013 fentaNYL 50 mcg/mL [employer] 30 mL (CANCELED) Intravenous, [employer] ONLY, Starting on Mon12/04/13 at 0045, Until Mon12/04/13 at 0200 0050 (New Syringe/Cartridge - Provider: Naresh Rojo, RN) fentaNYL 50 mcg/mL [employer] 30 mL (CANCELED) Intravenous, [employer] ONLY, Starting on Mon12/04/13 at 0230, Until Mon12/05/13 at 0759 0230 (Rate/Dose Change - Provider: Naresh Rojo RN)1125 (Rate/Dose Change - Provider: Elfego Garcia RN)1129 (New Syringe/Cartridge - Provider: Elfego Garcia RN)2200 (New Syringe/Cartridge - Provider: Elfego Garcia RN) 0850 (Stopped - Provider: Marcelina Sims RN) HYDROmorphone (DILAUDID) 1 mg/mL [employer] 30 mL (CANCELED) Intravenous, [employer] ONLY, Starting on Mon12/03/13 at 2100, Until Mon12/03/13 at 2321 2130 (New Syringe/Cartridge - Provider: Naresh Rojo, ELMA) HYDROmorphone (DILAUDID) 1 mg/mL [employer] 30 mL (CANCELED) Intravenous, [employer] ONLY, Starting on Mon12/03/13 at 2345, Until Mon12/04/13 at 0004 2345 (Rate/Dose Change - Provider: Naresh Rojo, RN) PRN Medication Order 12/03/2013 12/04/2013 12/05/2013 bisacodyl (DULCOLAX) EC tablet 10 mg (CANCELED) 10 mg, Oral, 2 TIMES DAILY PRN, Starting on 12/02/13 at 1613, Until Henny 12/05/13 at 1937, Constipation, Administer if needed per patient's routine or if no bowel movement within 48 hours, Routine 1147 (Given - Provider: Marcelina Sims RN) bisacodyl (DULCOLAX) suppository 10 mg 10 mg, Rectal, DAILY PRN, Starting on 12/02/13 at 1613, Until Henny 12/05/13 at 1937, [...] pain not relieved in 30-60 minutes., Routine 1907 (See Alternative - Provider: Elfego Garcia RN)2246 [...] pain not relieved in 30-60 minutes., Routine 1907 (Given - Provider: Elfego Garcia RN - [...] RN)2345 (See Alternative - Provider: Yaquelin Martines, RN) 0253 (See Alternative - Provider: Yaquelin [...] Routine 2037 (Given - Provider: Elfego Garcia RN)234 (Given - Provider: Yaquelin Martines RN) 0253 (See Alternative - Provider: Yaquelin Martines RN)0555 (Given - Provider: Yaquelin Martines RN)0855 (Given - Provider: Marcelina Sims RN)1155 (Given - Provider: Marcelina Sims, ELMA)1256 (See Alternative [...] (See Alternative - Provider: Marcelina Sims RN)1256 (See Alternative - Provider: Marcelina Sims RN)1633 (Given - Provider: Marcelina Sims RN) [...] Oral, EVERY 3 HOURS PRN, Starting on 12/04/13 at 2003, Until Henny 12/05/13 at 1937, [...] Routine documented in this encounter Care Teams Boot And Shoe Repairman Relationship Specialty Start Date End Date Reece Calixto MD [address] [place] [address] PCP - General 12/21/11 12/10/14 documented as of this encounter
--- OUTSIDE RECORDS SUMMARY | 2023-09-29 00:50 | XMS_ITS | Encounter Summary ---
[place] [address] Care Team Providers Care Professor Of Psychiatry Name Role Phone Ashley Calixto MD Primary Care Provider [phone] Encounter Details Date Type Department Care Team (Late st Contact Info) Description 11/21/2013 11:20 AM EDT Clinical [place] [id number] Social History Tobacco Use Types Packs/Day Years [...] on filedocumented in this encounter Care Teams Professor Of Psychiatry Relationship Specialty Start Date End Date Ashley Calixto MD [facility] [address] [place] [address] PCP - General 12/21/11 12/10/14 documented as of this encounter
--- OUTSIDE RECORDS SUMMARY | 2023-09-29 00:50 | XMS_ITS | Encounter Summary ---
Author Organization [facility] [place] [address] Care Team Providers Care Distance Education Coordinator Name Role Phone Ashley Calixto MD Primary Care Provider [phone] Encounter Details Date Type Department Care Team (Late st Contact Info) Description 11/21/2013 Orders [place] [address] Mihir Herrera MD [facility] [place] [address] Social History Tobacco Use Types Packs/Day Years [...] BANK LAB ORDER JACKIE Performing Organization Address City/[facility] Co de Phone Number RANDY MORALES documented in this encounter Visit Diagnoses Not on filedocumented in this encounter Care Teams Distance Education Coordinator Relationship Specialty Start Date End Date Ashley Calixto MD [facility] [address] [place] [address] PCP - General 12/21/11 12/10/14 documented as of this encounter
--- OUTSIDE RECORDS SUMMARY | 2023-09-29 00:50 | XMS_ITS | Encounter Summary ---
Author Organization [facility] [place] [address] Care Team Providers Care [employer] Name Role Phone Ashley Calixto MD Primary Care Provider [phone] Reason for Visit * Reason Onset Date Comments Medication Refill 12/10/2013 Encounter Details Date Type Department Care Team (Late st Contact Info) Description 12/10/2013 [place] [address] Mihir Herrera MD [facility] [place] [address] Knee joint replacement by other means (Primary [...] hours. He visited the pain clinic at [facility] to discuss pain management in this [...] If so, which one? [employer] [facility] in [place] If not, are you coming to pick this up? Or, would you like this mailed to your home. Best number to reach person calling? [phone] patient went to pain management this am, [...] Primary documented in this encounter Care Teams [employer] Relationship Specialty Start Date End Date Ashley Calixto MD [address] [place] [address] PCP - General 12/21/11 12/10/14 documented as of this encounter
--- OUTSIDE RECORDS SUMMARY | 2023-09-29 00:50 | XMS_ITS | Encounter Summary ---
[place] [address] Care Team Providers Care Slate Cutter Operator Name Role Phone Ashley Calixto MD Primary Care Provider [phone] Encounter Details Date Type Department Care Team (Late st Contact Info) Description 11/21/2013 8:30 AM EDT Office [place] [address] Social History Tobacco Use Types Packs/Day Years [...] on filedocumented in this encounter Care Teams Slate Cutter Operator Relationship Specialty Start Date End Date Ashley Calixto MD [facility] [address] [place], [place] [id number] PCP - General 12/21/11 12/10/14 documented as of this encounter
--- OUTSIDE RECORDS SUMMARY | 2023-09-29 00:50 | XMS_ITS | Encounter Summary ---
[place] [address] Care Team Providers Care Warehouse Consultant Name Role Phone Ashley Calixto MD Primary Care Provider [phone] Encounter Details Date Type Department Care Team (Latest Contact Info) Description 12/16/2013 Anti-Coag Telephone [place] [id number] Meghana Gleason, RN S/P total knee arthroplasty, [...] Therapeutic Range: 2.0-3.0 INR: 2.2 Drawn by: [facility] Patient presents with no signs of [...] left documented in this encounter Care Teams Warehouse Consultant Relationship Specialty Start Date End Date Ashley Calixto MD [address] [place] [address] PCP - General 12/21/11 12/10/14 documented as of this encounter
--- OUTSIDE RECORDS SUMMARY | 2023-09-29 00:50 | XMS_ITS | Encounter Summary ---
[place] [address] Care Team Providers Care Motel Maid Name Role Phone Ashley Calixto MD Primary Care Provider [phone] Reason for Visit * Reason Onset Date Comments Referral 11/22/2013 Encounter Details Date Type Department Care Team (Late st Contact Info) Description 11/22/2013 [place]phone [place] [id number] Charla Parker Referral Social History Tobacco Use [...] on filedocumented in this encounter Care Teams Motel Maid Relationship Specialty Start Date End Date Ashley Calixto MD [address] [place] [address] PCP - General 12/21/11 12/10/14 documented as of this encounter
--- OUTSIDE RECORDS SUMMARY | 2023-09-29 00:50 | XMS_ITS | Encounter Summary ---
Author Organization [facility] [place] [address] Care Team Providers Care Test Engine Evaluator Name Role Phone Ashley Calixto MD Primary Care Provider [phone] Reason for Visit * Reason Onset Date Comments Medication Refill 12/16/2013 Encounter Details Date Type Department Care Team (Late st Contact Info) Description 12/16/2013 [place] [address] Mihir Herrera MD [facility] [place] [address] Knee joint replacement by other means (Primary [...] AM EDT Patient Name: Zack Beeiott : [id number] MR#: [id number] Case Date: 12/02/2013 Surgeon: Surgeon(s) and Role: * Mihir Herrera MD - Primary * Florencio Davenport PA - Physician Chief Supply Chain Officer Preoperative diagnosis: Left DJD Postoperative diagnosis: Left [...] MAILED OVERNIGHT Best number to reach person calling?[phone] The nurse will call you when your prescription is ready, please allow up to 72 hrs for processing. documented in this encounter Plan of Treatment Not on file documented as of this encounter Visit Diagnoses Diagnosis Knee joint replacement by other means- Primary documented in this encounter Care Teams Test Engine Evaluator Relationship Specialty Start Date End Date Ashley Calixto MD [facility] [address] [facility] [address] [place] [address] PCP - General 12/21/11 12/10/14 documented as of this encounter
--- OUTSIDE RECORDS SUMMARY | 2023-09-29 00:50 | XMS_ITS | Encounter Summary ---
Author [facility] [place] [address] Care Team Providers Care Adult Educator Name Role Phone Ashley Calixto MD Primary Care Provider [phone] Reason for Visit * Reason Onset Date Comments Medication Refill 12/20/2013 Encounter Details Date Type Department Care Team (Late st Contact Info) Description 12/20/2013 [place] [address] Mihir Herrera MD [facility] [address] [place] [address] Knee joint replacement by other means (Primary [...] AM EDT Patient Name: Zack Beeiott : [id number] MR#: [id number] Case Date: 12/02/2013 Surgeon: Surgeon(s) and Role: * Mihir Herrera MD - Primary * Florencio Davenport PA - Physician Waste Water Or Water Plant Operator Preoperative diagnosis: Left DJD Postoperative diagnosis: [...] YES. Best number to reach person calling? [phone] The nurse will call you when your prescription is ready, please allow up to 72 hrs for processing. documented in this encounter Plan of Treatment Not on file documented as of this encounter Visit Diagnoses Diagnosis Knee joint replacement by other means- Primary documented in this encounter Care Teams Adult Educator Relationship Specialty Start Date End Date Ashley Calixto MD [address] [place] [address] PCP - General 12/21/11 12/10/14 documented as of this encounter
--- OUTSIDE RECORDS SUMMARY | 2023-09-29 00:50 | XMS_ITS | Encounter Summary ---
Author Organization [facility] [place] [address] Care Team Providers Care It Applications Manager Name Role Phone Ashley Calixto MD Primary Care Provider [phone] Reason for Visit * Reason Comments Left Knee Pain knee pain Encounter Details Date Type Department Care Team (Latest Contact Info) Description 11/21/2013 12:40 PM EDT Office [place] [address] Mihir Herrera MD [facility] [address] [place] [address] Osteoarthritis of knee Discharge Disposition: Home Social [...] metformin. He has not received authorization from [facility] for his Hep C treatment but notes [...] the following links into your internet browser. [email or web address] Blood specimen (specimen) 11/21/2013 11:50 AM EDT 11/21/2013 12:00 PM EDT Narrative Resulting Agency Comment Spec In Lab Mihir Herrera MD CHEMISTRY ORDERABLES Performing Organization Address City/State/[facility] Co de Phone Number [facility] documented in this encounter Visit Diagnoses Diagnosis Osteoarthritis of knee Osteoarthrosis, unspecified whether generalized or localized, lower leg documented in this encounter Care Teams It Applications Manager Relationship Specialty Start Date End Date Ashley Calixto MD [address] [facility] [address] [place] [address] PCP - General 12/21/11 12/10/14 documented as of this encounter
--- OUTSIDE RECORDS SUMMARY | 2023-09-29 00:50 | XMS_ITS | Encounter Summary ---
Author Organization [place] [address] Care Team Providers Care Dolly Pusher Name Role Phone Reece Calixto MD Primary Care Provider [phone] Reason for Referral * Consultation (Routine) - Closed by system - Referral Specialty Diagnoses / Procedures Referred By Casey reyes Referred To Contact Orthopaedic Surgery Diagnoses S/P total knee arthroplasty, left Malika Marlow PA [facility] [place] [address] Referral ID Status Reason Start Date Expiration Date Visits Requested Visits Authorized [id number] Closed by system - Referral Assume Subset of Care 12/05/2013 06/03/2014 1 1 Encounter Details Date Type Department Care Team (Latest Contact Info) Description 12/02/2013 5:43 AM EDT - 12/05/2013 5:37 PM EDT Hospital Encounter [address] [place] [address] Charis Herrera MD [facility] [place] [address] S/P total knee arthroplasty, left Discharge Disposition: [...] The INR should be reported to the [facility] Ortho clinic at [phone], and you will be informed of any [...] sennakot, to factilitate a bowel movement. An qgvk-gzn-zcuttqd medication, miralax can also beused if needed [...] 1. You will have followup appointments at [facility] as indicated in Future Appointments and Orders. You will have an xray prior to those appointments so please come to Radiology, desk 3T, 1 hour BEFORE your appointment for those x- rays. (at 9:10 am on Jan 02) Future Appointments Date Time [facility] Department Center 01/02/2014 10:10 AM [...] Patient discharged home with A services from [facility]. Paperwork faxed to [facility]. * Chu Castro RN - 12/05/2013 3:19 PM EDT Chart reviewed and met with pt who is ready for d/c home. Pt requests [facility] for services. I explained to pt that his WC info was mad available by EVARISTO Ha in OCM at [facility] and I would give this info to [facility] to see if they can get payment but since he wants to d/c homenow his Medicaid should cover services. He is on Coumadin and will nee PT/INR Fri, then q M&TH,SR in - 14 days, and Home PT 3xwk. Pt has the DME he needs. * Abran Cuhn MD - 12/05/2013 1:50 PM EDT Acute Pain Service - Daily Visit Note Patient Name: Zack Sousa The pt was seen this AM sitting in a chair comfortably. His fentanyl ACQUISITION LEAD was discontinued and he had been wearing [...] up appointment with Dr. Jo Alves at [facility] on 12/10/13 at 0915 4. We will be signing off Plan was discussed with primary team. Please call with any questions or concerns. Consult service will continue to follow patient . Recommendations as above. Please page if further consultation required. HECTOR ATKINSON MD 12/05/2013 Acute Pain Service Pager: [phone] I have seen and examined the patient, providing arceo components as outlined below. I have reviewed the resident???s above note; my evaluation of the patient is below: I was presnt through the fellows evaluation and plans and agree with them. * Ihsan Islas, ENRICHMENT TEACHER - 12/05/2013 12:35 PM EDT Physical Therapy [...] ARTHROPLASTY performed by Charis Herrera MD at [facility] MAIN OR Social History: Patient lives with his GF and 2 young boys and 2 teenagers. 1 flight of stairs to enter. 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 S/P Left total knee arthroplasty, 12/02/13. Herrear V43.65 Interim/Subjective: Pt. With improved with pain [...] 12/30/2010 To: L Knee/Low Back Employer: [employer] Ins. Co.: [employer] Claim: [id number] Pipelines Superintendent: Idalia Chauhan NCM: No NCM as of 12/04/2013 * Tri Briceño RN - 12/04/2013 2:44 PM EDT This is a 43 yo gentleman who underwent L TKA with Dr Herrera on 12/03/13. Pt has [place] [employer] insurance listed however pt explains this is workers comp thru [employer]. CRC confirming information. Met with pt his SO and 2 young children this afternoon. He is OOB and has IV in place at this time. Pain reports mod at this time. Patient lives with his GF and 2 young boys and 2 teenagers. 1 flight of stairs to enter. 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 We discussed need for FWW for use at home and he has no preference for vendor although IF WC- they may have specific vendors they prefer. Will await confirmation of WC before completing VNA and DME orders. ADDENDUM: Received confirmation WC. Tel Call to primer waterproofing machine adjuster Pipelines Superintendent: Idalia Chauhan We discussed she has approved securing FWW and 3 in 1 commode from [facility] facility to avoid delay in d/c. She will confirm appropriate in network VNA services. Provided WC with contact info for Chu Castro RN who will be following pt tomorrow. Will secure DME VNA orders still need to be completed once agency finalized. * Ihsan Islas, ENRICHMENT TEACHER - 12/04/2013 1:18 PM EDT Physical Therapy [...] ARTHROPLASTY performed by Charis Herrera MD at [facility] MAIN OR Social History: Patient lives with his GF and 2 young boys and 2 teenagers. 1 flight of stairs to enter. 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 Objective: Vitals: SpO2: WNL, HR WNL Most recent Hgb value: 10.3 Pain: Moderate to severe with exercises, moderate with ambulation, ACQUISITION LEAD x 2 Strength: 3/5, LAQ Functional Mobility: [...] for therapeutic functional IHSAN ISLAS PTA Pager: [phone] * Florencio Davenport, PA - 12/04/2013 6:56 [...] of fentanyl and placed on a fentanyl ACQUISITION LEAD with improved control. He has a history [...] of fentanyl and placed on a fentanyl ACQUISITION LEAD with improved control now. Recommendations: Pending APS consult Weight bearing status of operative extremity: Weight bearing as tolerated Wound closure: Canastota (remove 10-14 days) Dressing changes: Mepilex Silver [...] Herrera MD [facility] None * Naresh Miner RN - 12/04/2013 1:50 AM EDT Pt reported pain throughout shift as 10/10. MD notified and one time dose of fentanyl ordered around 1900 and dilaudid PO dose increased. MD notified later throughout shift and 2 doses of fentanyl 50mcg administered and ACQUISITION LEAD of dilaudid started. Pt stated ACQUISITION LEAD of dilaudid was ineffective. MD notified and ACQUISITION LEAD switched to fentanyl and one time 75 [...] bolus doses of fentanyl and a dilaudid ACQUISITION LEAD with essentially maximum settings for pain control. This morning his ACQUISITION LEAD was d/c'd and his femoral nerve catheter [...] he was put back on the dilaudid ACQUISITION LEAD. He continued to complain of extreme pain and appeared uncomfortable and his ACQUISITION LEAD settings were adjusted multiple times until he was on maximum dilaudid ACQUISITION LEAD settings. He received a 75mcg bolus of fentanyl, which provided some relief. His diluadid ACQUISITION LEAD was d/c'd and he was placed on a fentanyl ACQUISITION LEAD with a 25mcg demand dosewhich finally controlled [...] control was eventually achieved with a fentanyl ACQUISITION LEAD with high settings. Plan: - APS consult in the morning - continue fentanyl ACQUISITION LEAD until adequate PO regimen is established - discussed with orthopedic surgery senior resident Melany Acevedo MD PGY-1 Pager #[phone] 12/04/2013 1:21 AM * Jose Juan Moon [...] list reviewed Assessment: Peripheral nerve catheter and ACQUISITION LEAD for post-operative pain control, currently with good pain control. Patient being transitioned to oral pain medications. Patient requests d/c of FNC. Plan: ?? Peripheral nerve catheter was removed. Tip was intact. No bleeding, hematoma or erythema at the insertion site. ?? Patient was instructed to contact Regional Anesthesia Team ([id number]) for any unresolved sensory or motor deficits. ?? Thank you for the opportunity to have participated in the care of this patient. JOSE JUAN MOON MD Regional Team pager [phone] * Charis Herrera MD - 12/03/2013 6:54 [...] oral oxycodone to dilaudid and will maintain ACQUISITION LEAD for now until good pain control achieved with oral meds. The patient may need switch from oral oxycodone to dilaudid and will maintain ACQUISITION LEAD for now until good pain control achieved with oral meds. Drain was removed, with discontinue IVF and Laurent catheter Weight bearing status of operative extremity: Weight bearing as tolerated Wound closure: Canastota (remove 10-14 days) Dressing changes: Mepilex Silver [...] Note Patient: Zack Sousa s/p Surgery: 12/02/2013 [id number] Procedure(s) (LRB): @TOTAL KNEE ARTHROPLASTY (Left) MODIFIER: ATTUNE STABILIZED ROTATING PLATFORM DEPUY (Left) Surgeon(s) and Role: * Charis Herrera MD - Primary * Florencio Davenport PA - Physician Keyboard Teacher: 2 Hr 16 Min 40 Sec * [...] intact. Pain 5/10 at this time, dilaudid ACQUISITION LEAD controlling pain. Pt has dangled on edge of bed. Patient oriented to room, call gonzalez to bedside. I agree with previous nurse assessment, please see flowsheet for full assessment.Will continue to monitor ELFEGO GARCIA RN * Shanice Spann RN - 12/02/2013 3:00 PM EDT Patient [facility] bed from [facility] s/p L TKA. Patient AOx 4, HRR, , lung sounds diminished, hypoactive bs, lbm 12/01/13, laurent draining clear yellow urine. +csmt to all extremities. Dressing clean dry and intact. Constavac infusing on arrival. Pain 7/10 at this time, 1x block and dilaudid ACQUISITION LEAD controlling pain. Patient oriented to room, call [...] Constavac blood started per receiving RN request. Giulle WILLS 1400) Transportation requested. Guille WILLS documented [...] Zack Sousa Patient Age: 43 y.o. Language: Georgian Race: White Ethnicity: Not nor Admit date: 12/02/2013 Discharge date and time: 12/05/2013 Attending Physician: Charis Herrera MD Discharge Physician: Charis Herrera MD Follow-up Recommendations for Providers: Please see patient discharge instructions for additional details. Future Appointments Date Time Provider Department Center 01/02/2014 10:10 AM Charis Herrera MD [facility] None Inpatient Provider Contact Information: Charis Herrera MD Joints: [phone] After hours and weekends, call [facility] Marketing Outreach Coordinator, , and have Orthopedic resident paged. Discharge [...] Primary * Florencio Davenport PA - Physician Keyboard Teacher History of Presentation: The patient presented to [...] surgical site was marked with a green [place] in the pre-op area Hospital Course: The [...] up appointment with Dr. Jo Alves at [facility] on 12/10/13 at 0915 4. [...] Rate: [95-106] Blood Pressure BP: 129/65 mmHg @@ Respiratory Rate Resp: 16 Resp: [16-19] SpO2 SpO2: 95 % @@ Art BP BP (Arterial Line): -- Functional [...] The INR should be reported to the [facility] Ortho clinic at [phone], and you will be informed of any [...] sennakot, to factilitate a bowel movement. An ekkl-bpi-zpurafx medication, miralax can also beused if needed [...] 1. You will have followup appointments at [facility] as indicated in Future Appointments and Orders. [...] 01/02/2014 10:10 AM Charis Herrera MD Orthopaedics [phone] None Joint Appt Questionnaire [facility] Orthopaedics [phone] None Future Orders Please Complete By Expires Referral for Anticoagulation Monitoring [[id number] Custom] Process Instructions: If no progress note charted, please enter Clinical details in comments. Scheduling Instructions: Comments: Questions: Responses: My question or request is: patient going with lovenox bridge. Risk Factors: Responsible Group [facility] ANTICOAG Next due INR 12/06/2013 INR Goal Target End Date 12/30/2013 Referral to Home Health - at DISCHARGE [QML0741 CPT(R)] Process Instructions: Scheduling Instructions: Comments: [facility] PHONE: [phone] FAX: [phone] DISCHARGE DOCUMENTATION FOR VNA SERVICES (INCLUDING THOSE PATIENTS WITH MEDICARE COVERAGE BEING DISCHARGED HOME WITH VNA SERVICES AND THOSE PATIENTS WITH MEDICARE COVERAGE WHO ARE BEING DISCHARGED HOME WITH HOSPICE SERVICES) Zack Sousa [address] [facility] [phone] (home) Telephone Information: Drafter Refrigeration: In discussion with the attending physician, it is certified that this patient is under their care and that they, or a nurse practitioner, clinical nurse specialist or physician's assistant purchasing manager who is working directly with them, had [...] for home health services. HOME HEALTH AGENCY: [facility] Home care orders for Total KneeArthroplasty: 1.RN: Draw PT/INR as follows: PER MD ORDERS. Please draw INR daily until INR is 1.4 or greater. Patient will need lovenox injection if INR is less than 1.4 Thereafter, PT/INR: every Monday and PT/INR results to be called and faxed as follows Mon-Mon Ortho anticoagulation (Coumadin) clinic @ [facility]: ; Sat/Sun: if the PT/INR is drawn on the weekend, call the results to the Orthopedic Resident on callat [phone] for Coumadin dose Point of care testing [...] from this patient's PCP: REECE CALIXTO MD [facility] [address] [place] [address] All A agencies which cover the area of patient's residence have been reviewed, either verbally tamir writing, and patient/family have chosen the indicated home health care agency for home services. Questions: Responses: Agency name and contact information [facility] Patient location post discharge home What services are requested Registered Nurse Physical Therapy Start date Responsible MD post discharge contact info Primary Care Provider: REECE CALIXTO MD [phone] * Initial Assessments - Omega Orellana, OT [...] ARTHROPLASTY performed by Charis Herrera MD at [facility] MAIN OR Social History: Social History: Patient [...] minutes Total timed interventions: 0 minutes Pager: [phone] OMEGA ORELLANA OT 12/05/2013 Occupational Therapy Rehabilitation Department * Consult Note - Abran Chun MD - 12/04/2013 11:05 AM EDT Acute Pain Service Consultation Pt Age: 43 y.o. Date of Consultation: 12/04/2013 Consult Service: Orthopedics Place of Service: [facility] Responsible Attending: Javier Espinozataff/Associate Provider: [place] Consultation [...] oral pain meds along with a dilaudid ACQUISITION LEAD. He was placed on a fentanyl ACQUISITION LEAD the morning of 12/04 and has since [...] ARTHROPLASTY performed by Charis Herrera MD at [facility] MAIN OR ADR/Allergies: Allergies Allergen Reactions ??? [...] Intravenous, Q1 Min PRN, Orlando Acevedo MD; ACQUISITION LEAD arceo, , Intravenous, Continuous PRN, Orlando Acevedo MD; fentaNYL 50 mcg/mL ACQUISITION LEAD 30 mL, , Intravenous, PCAOnly, Orlando Acevedo MD; warfarin (COUMADIN) tablet 7.5 mg, 7.5 mg, Oral, Once, Lis Cameron,UNIVERSITY PRESIDENT; [COMPLETED] enoxaparin (LOVENOX) injection 40 mg, 40 mg, Subcutaneous, Once, Lis Cameron APRN, 40 mg at 12/04/13 1055 diaZEPam (VALIUM) tablet 5 mg, 5 mg, Oral, Q6H PRN, Lis Cameron APRN; [DISCONTINUED] HYDROmorphone (DILAUDID) 1 mg/mL ACQUISITION LEAD 30 mL, , Intravenous, ACQUISITION LEAD Only, Orlando Acevedo MD; [DISCONTINUED] fentaNYL 50 mcg/mL ACQUISITION LEAD 30 mL, , Intravenous, ACQUISITION LEAD Only, Orlando Acevedo MD, 1,500 mcg at [...] mg, Oral, Q3H PRN, Nisha, Lis P, UNIVERSITY PRESIDENT; [DISCONTINUED] oxyCODONE (ROXICODONE) immediate release tablet 10 mg, 10 mg, Oral, Q3H PRN, Nisha, Lis P, UNIVERSITY PRESIDENT; [DISCONTINUED] oxyCODONE (ROXICODONE) immediate release tablet 15 mg,15 mg, Oral, Q3H PRN, Nisha, Lis P, UNIVERSITY PRESIDENT, 15 mg at 12/03/13 1125 [DISCONTINUED] HYDROmorphone (DILAUDID) injection 0.5 mg, 0.5 mg, Intravenous, Once, Nisha, KarenP, UNIVERSITY PRESIDENT; [DISCONTINUED] HYDROmorphone (DILAUDID) tablet 2-6 mg, 2-6 mg, Oral, Q3H PRN, Nisha, Lis P, UNIVERSITY PRESIDENT, 6 mg at 12/03/13 1751; [DISCONTINUED] HYDROmorphone (DILAUDID) 1 mg/mL ACQUISITION LEAD 30 mL, , Intravenous, ACQUISITION LEAD Only, Orlando Acevedo MD, 30 mg at 12/03/13 2130 [DISCONTINUED] diphenhydrAMINE (BENADRYL) injection 25 mg, 25 mg, Intravenous, Q30 Min PRN, Orlando Acevedo MD; [DISCONTINUED] prochlorperazine (COMPAZINE) injection 5 mg, 5 mg, Intravenous, Q30 MinPRN, Orlando Acevdeo MD; [DISCONTINUED] nalOXone (NARCAN) injection 0.2 mg, 0.2 mg, Intravenous, Q1 Min PRN, Orlando Acevedo MD; [DISCONTINUED] ACQUISITION LEAD arceo, , Intravenous, Continuous PRN, Tiny Acevedo MD [DISCONTINUED] HYDROmorphone (DILAUDID) 1 mg/mL ACQUISITION LEAD 30 mL, , Intravenous, ACQUISITION LEAD Only, Orlando Acevedo MD; ROpivacaine (NAROPIN) 2 [...] Rectal, Daily PRN, Florencio Davenport PA; multivitamin Riic-Mc-EH-Min (THERAPEUTIC-M) 27-0.4 mg tablet 1 tablet, 1 [...] and sober since 03/10. Hx IV drugs [id number]. Hx intranasal drugs [id number]. ??? 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 He injured left knee and underwent arthroscopy in February. Knee is not getting better. He continues to be out on worker's compensation.He has hx of IVDU [id number] of intranasal drug use 1986-1999Has 2 tattoos he received in [place] in 1989 and 1999.Pierced ear in 1992 at home, shared needles.He sees psychiatrist, Dr. Baron, in [facility].He sees drug counselor Yanira [...] take full effect) 3. Stop the fentayl ACQUISITION LEAD 6 hours after applying the patch 4. Start oxycodone 5-15mg every 3-4 hours I have discussed with the pt the risks and side effects of opioid medications that include, but arenot limited to: terminal makeup operator abuse potential, constipation and sexual dysfunction. Consult service will continue to follow patient. Recommendations are above, please page if further consultation required. HECTOR ATKINSON MD 12/04/2013 # [id number] beeper # [phone]- APS I have seen and examined the [...] states pain is a 6/10. Administered fentanyl ACQUISITION LEAD. Will continue to monitor. * Plan of Care - Naresh Miner RN - 12/04/2013 2:00 AM EDT Problem: [...] Clinical Practice Guideline (CPG) Patient tolerating fentanyl ACQUISITION LEAD well with settlings 25 mcg/7 min/1500 mcg. [...] ARTHROPLASTY performed by Charis Herrera MD at [facility] MAIN OR Social History: Patient lives with his GF and 2 young boys and 2 teenagers. 1 flight of stairs to enter. 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 Administered dilaudid ACQUISITION LEAD and oral oxycodone. Will continue to monitor. [...] reports no relief from scheduled tylenol, dilaudid ACQUISITION LEAD and oxycodone 15mg. paged, in to see pt and new orders given. Dilaudid ACQUISITION LEAD dose increased and one time order for [...] Herrera MD - 12/02/2013 9:39 AM EDT [facility] Operative Note Patient Name: Zack Sousa : [id number] MR#: [id number] Case Date: 12/02/2013 Surgeon: Surgeon(s) and Role: * Charis Herrera MD - Primary * Florencio Davenport PA - Physician Keyboard Teacher Preoperative diagnosis: Left DJD Postoperative diagnosis: Left [...] Implant Name Type Inv. Item Serial No. Supervisor Cold Rolling Lot No. LRB No. Used Action CEMENT,BNE,CMW 1,GNTA,40GM ([id number]) - [id number] IMPLANTS CEMENT,BNE,CMW 1,GNTA,40GM ([id number]) Depuy Canceling Machine Operator - [id number] Left 1 Implanted TRAY,ATTUNE,RP,TIB,BASE,SZ7 ([id number]) (AUTOREQ) - [id number] IMPLANTS TRAY,ATTUNE,RP,TIB,BASE,SZ7 ([id number]) (AUTOREQ) Depuy Canceling Machine Operator - [id number] Left 1 Implanted INSER,ATTUNE,PS,FEM,SZ7,LT ([id number]) (AUTOREQ) - [id number] IMPLANTS INSER,ATTUNE,PS,FEM,SZ7,LT ([id number]) (AUTOREQ) Depuy Canceling Machine Operator - [id number] Left 1 Implanted DIXON,ATTPIPER,MDL,KOKO,41MM ([id number]) (AUTOREQ) - [id number] IMPLANTS DIXON,ATTUNE,MDL,KOKO,41MM ([id number]) (AUTOREQ) Depuy Canceling Machine Operator - [id number] Left 1 Implanted INSER,ATTUNE,PS,RP,SZ7,7MM ([id number]) (AUTOREQ) - [id number] IMPLANTS INSER,ATTUNE,PS,RP,SZ7,7MM ([id number]) (AUTOREQ) Depuy Canceling Machine Operator - [id number] Left 1 Implanted COMPLICATIONS: None. SPECIMENS: Bone [...] surgical site was marked with a green [place] in the pre-op area. DESCRIPTION OF PROCEDURE: [...] mallet. Excess cement was removed with a [place]. We then placed the cement onto the anterior and distal aspects of the femur. The cement was placed on the posterior aspect of the prosthetic condyles. The femoral component was then placed and impacted into position. Excess cement was removed with a [place]. The polyethylene trial was then placed and the knee brought out to full extension where it was held for the entire polymerization time. Cement was then pressurized into the patellar bone and the patellar component placed. The patella was clamped. Excess cement was removed with a [place]. After all cement had hardened, the knee [...] the anesthesiology staff and transferred to the [facility]. Sequential compression devices were placed. The [...] POC Glucose 89 60 - 199 mg/dL [facility] Comment: Supplemental ranges: <140 mg/dL before meals <180 mg/dL all other times of the day Blood specimen (specimen) 12/05/2013 4:18 PM EDT 12/05/2013 4:18 PM EDT Charis Herrera MD POINT OF CARE TEST O HARINDER Performing Organization Address [facility] de Phone Number [facility] * POCT Glucose (12/05/2013 11:35 AM EDT) POC Glucose 100 60 - 199 mg/dL [facility] Comment: Supplemental ranges: <140 mg/dL before meals <180 mg/dL all other times of the day Blood specimen (specimen) 12/05/2013 11:35 AM EDT 12/05/2013 11:35 AM EDT Charis Herrera MD POINT OF CARE TEST O HARINDER Performing Organization Address [facility]/State/[facility] Co de Phone Number [facility] * POCT Glucose (12/05/2013 7:07 AM [...] 12.5 - 15.5 sec CERNER MILLENNIUM Comment: [facility] Transfusion Committee Guidelines: INR less than 2.0, [...] the following links into your internet browser. [email or web address] Blood specimen (specimen) 12/05/2013 4:35 AM EDT 12/05/2013 4:43 AM EDT Narrative Resulting Agency Comment Spec In Lab Charis Herrera MD CHEMISTRY ORDERABLES Performing Organization Address [facility] de Phone Number [facility] * POCT Glucose (12/05/2013 3:55 AM EDT) POC Glucose 104 60 - 199 mg/dL [facility] Comment: Supplemental ranges: <140 mg/dL before meals <180 mg/dL all other times of the day Blood specimen (specimen) 12/05/2013 3:55 AM EDT 12/05/2013 3:55 AM EDT Charis Herrera MD POINT OF CARE TEST O RDERABLES Performing Organization Address [facility] Phone Number [facility] * POCT Glucose (12/04/2013 11:43 PM EDT) POC Glucose 94 60 - 199 mg/dL [facility] Comment: Supplemental ranges: <140 mg/dL before meals <180 mg/dL all other times of the day Blood specimen (specimen) 12/04/2013 11:43 PM EDT 12/04/2013 11:43 PM EDT Charis Herrera MD POINT OF CARE TEST O RDERABLES Performing Organization Address [facility] de Phone Number [facility] * POCT Glucose (12/04/2013 7:29 PM EDT) POC Glucose 120 60 - 199 mg/dL [facility] Comment: Supplemental ranges: <140 mg/dL before meals <180 mg/dL all other times of the day Blood specimen (specimen) 12/04/2013 7:29 PM EDT 12/04/2013 7:29 PM EDT Charis Herrera MD POINT OF CARE TEST O RDERABLES Performing Organization Address [facility] Co de Phone Number [facility] * POCT Glucose (12/04/2013 4:12 PM EDT) POC Glucose 108 60 - 199 mg/dL [facility] Comment: Supplemental ranges: <140 mg/dL before meals <180 mg/dL all other times of the day Blood specimen (specimen) 12/04/2013 4:12 PM EDT 12/04/2013 4:12 PM EDT Charis Herrera MD POINT OF CARE TEST O RDERATESSA Performing Organization Address [facility] de Phone Number [facility] * POCT Glucose (12/04/2013 11:41 AM EDT) POC Glucose 136 60 - 199 mg/dL [facility] Comment: Supplemental ranges: <140 mg/dL before meals <180 mg/dL all other times of the day Blood specimen (specimen) 12/04/2013 11:41 AM EDT 12/04/2013 11:41 AM EDT Narrative Authorizing Provider Result Daniela Herrera MD POINT OF CARE TEST O HARINDER Performing Organization Address [facility] de Phone Number [facility] * POCT Glucose (12/04/2013 7:07 AM EDT) POC Glucose 126 60 - 199 mg/dL [facility] Comment: Supplemental ranges: <140 mg/dL before meals <180 mg/dL all other times of the day Blood specimen (specimen) 12/04/2013 7:07 AM EDT 12/04/2013 7:07 AM EDT Narrative Authorizing Provider Result Daniela Herrera MD POINT OF CARE TEST O RDERATESSA Performing Organization Address [facility] de Phone Number [facility] * (ABNORMAL) Hemoglobin A1c (12/04/2013 3:54 AM EDT) Hemoglobin A1C 6.7(H) <=5.6 % NICOLAS Bradley [facility] Comment: Reference Range: 4.3 - [...] Mellitus, Diabetes Care 2013; 36: Suppl. 1, S67-92 Est Avg Gluc 146 mg/dL [facility] Comment: eAG equivalents for HbA1c percentages: HbA1c(%) ?eAG(mg/dL) 6.0 ?126 6.5 ?140 7.0 ?154 7.5 ?169 8.0 ?183 8.5 ?197 9.0 ?212 9.5 ?226 10.0 ? 240 Limitations: The eAG calculation has not been validated on women, individuals below 18 years old and above 70 years old, and individuals with hemoglobinopathies. Additional resources are available on the ADA website: [email or web address] Blake KENNEY, Charley J, Gian R, et al. ??Translating the A1C assay into estimated average glucose values. ??Diabetes Care 2008:31(8):9992-4492. Blood specimen (specimen) 12/04/2013 3:54 AM EDT 12/04/2013 10:05 AM EDT Narrative Resulting Agency Comment Spec In Lab Charis Herrera MD CHEMISTRY ORDERABLES [facility] * (ABNORMAL) Differential, Automated (12/04/2013 3:54 AM [...] MPV 11.4 9.0 - 12.0 fL [facility] Blood specimen (specimen) 12/04/2013 3:54 AM EDT 12/04/2013 4:27 AM EDT Narrative Resulting Agency Comment Spec In Lab Charis Herrera MD HEMATOLOGY ORDERABLE S Performing Organization Address [facility] de Phone Number [facility] RAEN[facility] * Prothrombin Time (12/04/2013 3:54 AM EDT) PT 13.2 12.5 - 15.5 sec [facility] MILLENNIUM Comment: [facility] Transfusion Committee Guidelines: INR less than 2.0, PTT less than OR equal to 43.5 seconds, or Fibrinogen greater than or equal to 100 mg/dl indicate adequate procoagulant activity for hemostasis in patients without underlying bleeding disorders. INR 0.9 0.9 - 1.1 [facility] MILLENNIUM Blood specimen (specimen) 12/04/2013 3:54 AM EDT 12/04/2013 4:27 AM EDT Narrative Resulting Agency Comment Spec In Lab Charis Herrera MD HEMATOLOGY ORDERABLE S Performing Organization Address [facility] Co de Phone Number [facility] * (ABNORMAL) Basic Metabolic Panel (non-fasting) (12/04/2013 3:54 AM EDT) Glucose Lvl 105 60 - 199 mg/dL [facility] MILLENNIUM Comment:Diabetes: >=200 mg/d L plus symptoms BUN 10 10 - 20 mg/dL [facility] MILLENNIUM Creatinine 0.80 0.80 - 1.50 mg/dL [...] the following links into your internet browser. [email or web address] Blood specimen (specimen) 12/04/2013 3:54 AM EDT [...] CARE TEST O RDERATESSA Performing Organization Address [facility] Co de Phone Number [facility] * POCT Glucose (12/03/2013 11:42 PM EDT) POC Glucose 115 60 - 199 mg/dL [facility] Comment: Supplemental ranges: <140 mg/dL before meals <180 mg/dL all other times of the day Blood specimen (specimen) 12/03/2013 11:42 PM EDT 12/03/2013 11:42 PM EDT Charis Herrera MD POINT OF CARE TEST O RDERATESSA Performing Organization Address [facility] de Phone Number [facility] * POCT Glucose (12/03/2013 7:22 PM EDT) POC Glucose 102 60 - 199 mg/dL [facility] Comment: Supplemental ranges: <140 mg/dL before meals <180 mg/dL all other times of the day Blood specimen (specimen) 12/03/2013 7:22 PM EDT 12/03/2013 7:22 PM EDT Charis Herrera MD POINT OF CARE TEST O RDERATESSA Performing Organization Address [facility] de Phone Number [facility] * POCT Glucose (12/03/2013 5:20 PM EDT) POC Glucose 115 60 - 199 mg/dL [facility] Comment: Supplemental ranges: <140 mg/dL before meals <180 mg/dL all other times of the day Blood specimen (specimen) 12/03/2013 5:20 PM EDT 12/03/2013 5:20 PM EDT Charis Herrera MD POINT OF CARE TEST O RDERABLES Performing Organization Address [facility] Co de Phone Number [facility] * POCT Glucose (12/03/2013 4:37 PM EDT) POC Glucose 81 60 - 199 mg/dL [facility] Comment: Supplemental ranges: <140 mg/dL before meals <180 mg/dL all other times of the day Blood specimen (specimen) 12/03/2013 4:37 PM EDT 12/03/2013 4:37 PM EDT Charis Herrera MD POINT OF CARE TEST O HARINDER Performing Organization Address [facility] de Phone Number [facility] * POCT Glucose (12/03/2013 4:21 PM EDT) POC Glucose 70 60 - 199 mg/dL [facility] Comment: Supplemental ranges: <140 mg/dL before meals <180 mg/dL all other times of the day Blood specimen (specimen) 12/03/2013 4:21 PM EDT 12/03/2013 4:21 PM EDT Charis Herrera MD POINT OF CARE TEST O HARINDER Performing Organization Address [facility] de Phone Number [facility] * POCT Glucose (12/03/2013 11:58 AM EDT) POC Glucose 119 60 - 199 mg/dL [facility] Comment: Supplemental ranges: <140 mg/dL before meals <180 mg/dL all other times of the day Blood specimen (specimen) 12/03/2013 11:58 AM EDT 12/03/2013 11:58 AM EDT Charis Herrera MD POINT OF CARE TEST O RDERATESSA Performing Organization Address [facility] de Phone Number [facility] * POCT Glucose (12/03/2013 7:19 AM EDT) POC Glucose 139 60 - 199 mg/dL [facility] Comment: Supplemental ranges: <140 mg/dL before [...] MD HEMATOLOGY ORDERABLE S Performing Organization Address [facility]/ZIP Co de Phone Number [facility] * [...] MD HEMATOLOGY ORDERABLE S Performing Organization Address [facility] Co de Phone Number [facility] * Prothrombin Time (12/03/2013 4:21 AM EDT) PT 13.8 12.5 - 15.5 sec [facility] Comment: [facility] Transfusion Committee Guidelines: INR less than 2.0, [...] the following links into your internet browser. [email or web address] Blood specimen (specimen) 12/03/2013 4:21 AM EDT 12/03/2013 4:27 AM EDT Narrative Resulting Agency Comment Spec In Lab Charis Herrera MD CHEMISTRY ORDERABLES Performing Organization Address [facility] de Phone Number [facility] * POCT Glucose (12/03/2013 3:54 AM EDT) POC Glucose 185 60 - 199 mg/dL [facility] Comment: Supplemental ranges: <140 mg/dL before meals <180 mg/dL all other times of the day Blood specimen (specimen) 12/03/2013 3:54 AM EDT 12/03/2013 3:54 AM EDT Charis Herrera MD POINT OF CARE TEST O RDERABLES Performing Organization Address [facility] Phone Number [facility] * POCT Glucose (12/03/2013 12:06 AM EDT) POC Glucose 154 60 - 199 mg/dL [facility] Comment: Supplemental ranges: <140 mg/dL before meals <180 mg/dL all other times of the day Blood specimen (specimen) 12/03/2013 12:06 AM EDT 12/03/2013 12:06 AM EDT Charis Herrera MD POINT OF CARE TEST O RDERABLES Performing Organization Address [facility] de Phone Number [facility] * POCT Glucose (12/02/2013 8:51 PM EDT) POC Glucose 164 60 - 199 mg/dL [facility] Comment: Supplemental ranges: <140 mg/dL before meals <180 mg/dL all other times of the day Blood specimen (specimen) 12/02/2013 8:51 PM EDT 12/02/2013 8:51 PM EDT Charis Herrera MD POINT OF CARE TEST O RDERABLES Performing Organization Address [facility] Co de Phone Number [facility] * (ABNORMAL) POCT Glucose (12/02/2013 7:09 PM EDT) POC Glucose 226(H) 60 - 199 mg/dL [facility] Comment: Supplemental ranges: <140 mg/dL before meals <180 mg/dL all other times of the day Blood specimen (specimen) 12/02/2013 7:09 PM EDT 12/02/2013 7:09 PM EDT Charis Herrera MD POINT OF CARE TEST O HARINDER Performing Organization Address [facility] de Phone Number [facility] * Prothrombin Time (12/02/2013 4:46 PM EDT) PT 13.0 12.5 - 15.5 sec [facility] Comment: [facility] Transfusion Committee Guidelines: INR less than 2.0, PTT less than OR equal to 43.5 seconds, or Fibrinogen greater than or equal to 100 mg/dl indicate adequate procoagulant activity for hemostasis in patients without underlying bleeding disorders. INR 0.9 0.9 - 1.1 [facility] Blood specimen (specimen) 12/02/2013 4:46 PM EDT 12/02/2013 4:53 PM EDT Narrative Resulting Agency Comment Spec In Lab Charis Herrera MD HEMATOLOGY ORDERABLE S Performing Organization Address [facility] de Phone Number [facility] * (ABNORMAL) POCT Glucose (12/02/2013 4:11 PM EDT) POC Glucose 207(H) 60 - 199 mg/dL [facility] Comment: Supplemental ranges: <140 mg/dL before meals <180 mg/dL all other times of the day Blood specimen (specimen) 12/02/2013 4:11 PM EDT 12/02/2013 4:11 PM EDT Charis Herrera MD POINT OF CARE TEST O RDERATESSA Performing Organization Address [facility] de Phone Number [facility] * POCT Glucose (12/02/2013 10:06 AM EDT) POC Glucose 165 60 - 199 mg/dL [facility] Comment: Supplemental ranges: <140 mg/dL before meals <180 mg/dL all other times of the day Blood specimen (specimen) 12/02/2013 10:06 AM EDT 12/02/2013 10:06 AM EDT Charis Herrera MD POINT OF CARE TEST O RDERABLES [facility] * Surgical Pathology Report (12/02/2013 9:56 AM EDT) Pathologist [facility] FINAL DIAGNOSIS (AP) ? [facility] ? Provider: ?? CHARIS HERRERA ?? Pt. Name: ?? ZACK SOUSA ? Acc #: ?[id number] ?Pt. ? Col Date: ?? 12/02/2013 ? [...] ? Left DJD 12/03/2013 10:07 AM EDT [facility] STRUCTURE / Unknown 12/02/2013 9:56 AM EDT 12/02/2013 9:56 AM EDT Charis Herrera MD PATHOLOGY/CYTOLOGY O HARINDER Performing Organization Address [facility]/ZIP Co de Phone Number RANDY MORALES [facility] [place] [address] * Specimen to Pathology (surgical or derm) (12/02/2013 9:31 AM EDT) AP Specimen 12/02/2013 9:31 AM EDT 12/02/2013 9:31 AM EDT Narrative RANDY MORALES - 12/02/2013 9:31 AM EDT Specimen requisition ordered. ??Separate Pathology report to follow Charis Herrera MD PATHOLOGY/CYTOLOGY O HARINDER RANDY MORALES * POCT Glucose (12/02/2013 7:26 AM EDT) POC Glucose 139 60 - 199 mg/dL [facility] Comment: Supplemental ranges: <140 mg/dL before meals <180 mg/dL all other times of the day Blood specimen (specimen) 12/02/2013 7:26 AM EDT 12/02/2013 7:26 AM EDT Charis Herrera MD POINT OF CARE TEST O RDERABLES Performing Organization Address [facility] de Phone Number [facility] * APTT (12/02/2013 7:25 AM EDT) PTT 29 25 - 35 sec [facility] Comment: Recommended therapeutic PTT range for full dose unfractionated heparin is 80-114 seconds. Blood specimen (specimen) 12/02/2013 7:25 AM EDT 12/02/2013 7:27 AM EDT Narrative Resulting Agency Comment Spec In Lab Sachi Fontanez MD HEMATOLOGY ORDERABLE S Performing Organization Address [facility] de Phone Number [facility] * Prothrombin Time (12/02/2013 7:25 AM EDT) PT 12.7 12.5 - 15.5 sec [facility] Comment: [facility] Transfusion Committee Guidelines: INR less than 2.0, PTT less than OR equal to 43.5 seconds, or Fibrinogen greater than or equal to 100 mg/dl indicate adequate procoagulant activity for hemostasis in patients without underlying bleeding disorders. INR 0.9 0.9 - 1.1 [facility] BitsparkENNIUM Blood specimen (specimen) 12/02/2013 7:25 AM EDT 12/02/2013 7:27 AM EDT Narrative Resulting Agency Comment Spec In Lab Sachi Fontanez MD HEMATOLOGY ORDERABLE S Performing Organization Address [facility] de Phone Number [facility] [employer] documented in this encounter Visit Diagnoses Diagnosis [...] 40 mg, Subcutaneous, ONCE, 1 dose, On [facility] 12/05/13 at 1000, Routine Given 12/05/2013 10:40 AM [...] at 0001, Until Mon12/04/13 at 0011, NARESH MINER: cabinet override fentaNYL 50 mcg/mL ACQUISITION LEAD 30 mL Intravenous, ACQUISITION LEAD ONLY, Starting on Mon12/04/13 at 0045, Until Mon12/04/13 at 0200 New Syringe/Cartridge 12/04/2013 12:50 AM EDT 1,500 mcg fentaNYL 50 mcg/mL ACQUISITION LEAD 30 mL Intravenous, ACQUISITION LEAD ONLY, Starting on Mon12/04/13 at 0230, Until [...] EDT 25 mg HYDROmorphone (DILAUDID) 1 mg/mL ACQUISITION LEAD 30 mL Intravenous, ACQUISITION LEAD ONLY, Starting on Mon12/02/13 at 1030, Until Mon12/02/13 at 2038, Recovery (Recovery-Hospital Unit) New Syringe/Cartridge 12/02/2013 10:20 AM EDT 30 mg HYDROmorphone (DILAUDID) 1 mg/mL ACQUISITION LEAD 30 mL Intravenous, ACQUISITION LEAD ONLY, Starting on Mon12/02/13 at 2100, Until Mon12/02/13 at 2149, Recovery (Recovery-Hospital Unit) Rate/Dose Change 12/02/2013 8:48 PM EDT 30 mg HYDROmorphone (DILAUDID) 1 mg/mL ACQUISITION LEAD 30 mL Intravenous, ACQUISITION LEAD ONLY, Starting on Mon12/02/13 at 2215, Until Mon12/03/13 at 1013, Recovery (Recovery-Hospital Unit) Rate/Dose Change 12/02/2013 9:56 PM EDT 30 mg HYDROmorphone (DILAUDID) 1 mg/mL ACQUISITION LEAD 30 mL Intravenous, ACQUISITION LEAD ONLY, Starting on Mon12/03/13 at 2100, Until Mon12/03/13 at 2321 New Syringe/Cartridge 12/03/2013 9:30 PM EDT 30 mg HYDROmorphone (DILAUDID) 1 mg/mL ACQUISITION LEAD 30 mL Intravenous, ACQUISITION LEAD ONLY, Starting on Mon12/03/13 at 2345, Until [...] 12/04/2013 8:19 AM EDT 1,000 mg multivitamin Qvdz-Vi-HY-Min (THERAPEUTIC-M) 27-0.4 mg tablet 1 tablet 1 [...] Elfego Garcia RN)2118 (Given - Provider: Naresh Miner, ELMA) 0605 (Given - Provider: Naresh Miner RN) atorvastatin (LIPITOR) tablet 10 mg (CANCELED) [...] 0030, Routine 0019 (Given - Provider: Naresh Miner, RN) enoxaparin (LOVENOX) injection 40 mg (COMPLETED) [...] 2015, Routine 2002 (Given - Provider: Naresh Miner, RN) fentaNYL 50mcg/mL injection (COMPLETED) 50 mcg, Intravenous, ONCE, 1 dose, On Mon12/03/13 at 2130, Routine 2117 (Given - Provider: Naresh Miner, RN) fentaNYL 50mcg/mL injection (COMPLETED) 75 mcg, Intravenous, ONCE, 1 dose, On Mon12/04/13 at 0015, Routine 0011 (Given - Provider: Naresh Miner RN) glipiZIDE (GLUCOTROL) CR tablet 10 mg (CANCELED) 10 mg, Oral, DAILY, First dose on Mon12/02/13 at 1900, Until Discontinued, Routine 0821 (Given - Provider: Elfego Garcia RN) 0819 (Given - Provider: Elfego Garcia RN) 0807 (Given - Provider: Marcelina Sims, RN) hydrochlorothiazide (HYDRODIURIL) tablet 25 mg (CANCELED) 25 mg, Oral, DAILY, First dose on Mon12/03/13 at 0900, Until Discontinued, Routine 08 (Given - Provider: Elfego Garcia RN) 0819 (Given - Provider: Elfego Garcia RN) 0807 (Given - Provider: Marcelina Sims, ELMA) HYDROmorphone [...] not met)2000 (Not Given - Provider: Naresh Miner RN - Reason: Order parameters not met) 0000 (Not Given - Provider: Naresh Miner RN - Reason: Order parameters not met)0400 (Not Given - Provider: Naresh Miner RN - Reason: Order parameters not met)0800 (Not Given - Provider: Naresh Miner RN - Reason: Order parameters not met)1202 [...] Reason: See comment - Comment: BG 81) 08 (Given - Provider: Elfego Garcia RN)1655 (Not Given - Provider: Elfego Garcia RN - Reason: Order parameters not met - Comment: BG 108) 0807 (Given - Provider: Marcelina Sims RN)1703 (Given - Provider: Marcelina Sims RN) multivitamin Kbbg-Nx-LM-Min (THERAPEUTIC-M) 27-0.4 mg tablet 1 tablet (CANCELED) 1 tablet, Oral, DAILY, First dose on Mon12/02/13 at 1630, Until Discontinued 08 (Given - Provider: Elfego Garcia RN) 08 (Given - Provider: Elfego Garcia RN) 08 (Given - Provider: Marcelina Sims, ELMA) polyethylene glycol (MIRALAX) packet 17 g 17 g, Oral, 2 TIMES DAILY, First dose on Mon12/02/13 at 2100, Until Discontinued, Administer if needed per patient's routine or if no bowel movement within 48 hours, Routine 08 (Given - Provider: Elfego Garcia RN)2117 (Given - Provider: Naresh Miner RN) 818 (Given - Provider: Elfego Garcia RN)2037 (Given - Provider: Elfego Garcia RN) 0807 (Given - Provider: Marcelina Sims, ELMA) senna-docusate (PERICOLACE) 8.6-50 mg per tablet 1-4 tablet 1-4 tablet, Oral, 2 TIMES DAILY, First dose on Mon12/02/13 at 2100, Until Discontinued, Start with 1 tablet or liquid equivalent orally twice daily and titrate up to achieve: 1. One bowel movement at least every 48 hours, AND 2. Without straining, Routine 08 (Given - Provider: Elfego Garcia RN)2117 (Given - Provider: Naresh Miner, ELMA) 08 (Given - Provider: Elfego Garcia RN)2037 (Given - Provider: Elfego Garcia RN) 0808 (Given - Provider: Marcelina Sims RN) sodium chloride 0.9 % flush 5 mL (CANCELED) 5 mL, Intravenous, 2 TIMES DAILY, First dose on Mon12/02/13 at 1030, Until Discontinued, Recovery (Recovery-Hospital Unit), Routine 0823 (Given - Provider: Elfego Garcia RN)2005 (Given - Provider: Naresh Miner RN) 0820 (Given - Provider: Elfego Garcia RN)2038 (Given [...] Order 12/03/2013 12/04/2013 12/05/2013 fentaNYL 50 mcg/mL ACQUISITION LEAD 30 mL (CANCELED) Intravenous, ACQUISITION LEAD ONLY, Starting on Mon12/04/13 at 0045, Until Mon12/04/13 at 0200 0050 (New Syringe/Cartridge - Provider: Naresh Miner RN) fentaNYL 50 mcg/mL ACQUISITION LEAD 30 mL (CANCELED) Intravenous, ACQUISITION LEAD ONLY, Starting on Mon12/04/13 at 0230, Until Henny 12/05/13 at 0759 0230 (Rate/Dose Change - Provider: Naresh Miner RN)1125 (Rate/Dose Change - Provider: Elfego Garcia RN)1129 (New Syringe/Cartridge - Provider: Elfego Garcia RN)2200 (New Syringe/Cartridge - Provider: Elfego Garcia RN) 0850 (Stopped - Provider: Marcelina Sims RN) HYDROmorphone (DILAUDID) 1 mg/mL ACQUISITION LEAD 30 mL (CANCELED) Intravenous, ACQUISITION LEAD ONLY, Starting on Mon12/03/13 at 2100, Until Mon12/03/13 at 2321 2130 (New Syringe/Cartridge - Provider: Naresh Miner RN) HYDROmorphone (DILAUDID) 1 mg/mL ACQUISITION LEAD 30 mL (CANCELED) Intravenous, ACQUISITION LEAD ONLY, Starting on Mon12/03/13 at 2345, Until Mon12/04/13 at 0004 2345 (Rate/Dose Change - Provider: Naresh Miner, RN) PRN Medication Order 12/03/2013 12/04/2013 12/05/2013 [...] 0808 (Given - Provider: Marcelina Sims, ELMA) HYDROmorphone (DILAUDID) tablet 12 mg (CANCELED)(Linked Group 2) 12 mg, Oral, EVERY 3 HOURS PRN, Starting on Mon12/03/13 at 1849, Until Mon12/04/13 at 1121, Pain, for severe pain, May give an additional 4 mg one time if pain not relieved in 30-60 minutes., Routine 1908 (See Alternative - Provider: Elfego Garcia RN)2247 (Given - Provider: Naresh Miner, ELMA) HYDROmorphone (DILAUDID) tablet 2-6 mg (CANCELED) 2-6 [...] per MD)2247 (See Alternative - Provider: Naresh Miner RN) oxyCODONE (ROXICODONE) immediate release tablet 10 mg 10 mg, Oral, EVERY 3 HOURS PRN, Starting on Mon12/04/13 at 2003, Until Mon12/05/13 at 1937, Pain, mild pain, May give [...] If pain not relieved, call provider., Routine 112 (Given - Provider: Elfego Garcia RN) oxyCODONE (ROXICODONE) immediate release tablet 15 mg (CANCELED)(Linked Group 4) 15 mg, Oral, EVERY 3 HOURS PRN, Starting on Mon12/04/13 at 1120, Until Mon12/04/13 at 2004, Pain, severe pain or opiate tolerant patient, Do not start patient with 15 mg dose. Do not give if patient is opiate niave., Routine 113 (Given - Provider: Elfego Garcia RN)1434 (Given - Provider: Elfego Garcia RN)1734 (Given - Provider: Elfego Garcia RN) oxyCODONE (ROXICODONE) immediate release tablet 20 mg (CANCELED) 20 mg, Oral, EVERY 3 HOURS PRN, Starting on Mon12/04/13 at 2002, Until Mon12/05/13 at 1937, Pain, moderate pain, [...] PRN, Starting on Mon12/04/13 at 2002, Until Mon12/05/13 at 1937, Pain, severe pain or opiate tolerant patient, Do not start patient with 15 mg dose. Do not give if patient is opiate niave., Routine 2037 (See Alternative - Provider: Elfego N Jose, RN)2345 (See Alternative - Provider: Yaquelin Martines [...] Routine documented in this encounter Care Teams Dolly Pusher Relationship Specialty Start Date End Date Reece Calixto MD [facility] [address] [place] [address] PCP - General 12/21/11 12/10/14 documented as of this encounter
--- OUTSIDE RECORDS SUMMARY | 2023-09-29 00:50 | XMS_ITS | Encounter Summary ---
[place] [address] Care Team Providers Care Bulk Truck Driver Name Role Phone Ashley Calixto MD Primary Care Provider [phone] Encounter Details Date Type Department Care Team (Latest Contact Info) Description 12/09/2013 Anti-Coag [place]phone [place] [phone] Meghana Gleason, RN S/P total knee arthroplasty, [...] Therapeutic Range: 2.0-3.0 INR: 2.1 Drawn by: [facility] Patient presents [...] left documented in this encounter Care Teams Bulk Truck Driver Relationship Specialty Start Date End Date Ashley Calixto MD [address] [place] [address] PCP - General 12/21/11 12/10/14 documented as of this encounter
--- OUTSIDE RECORDS SUMMARY | 2023-09-29 00:50 | XMS_ITS | Encounter Summary ---
Author Organization [facility] [place] [address] Care Team Providers Care Blocker Hand Name Role Phone Ashley Calixto MD Primary Care Provider [phone] Reason for Visit * Reason Onset Date Comments Medication Refill 12/23/2013 Encounter Details Date Type Department Care Team (Late st Contact Info) Description 12/23/2013 [place]phone [place] [address] Mihir Herrera MD [facility] [address] [place] [address] Medication Refill Social History Tobacco Use Types [...] BUT REQUESTED THAT WE CALL ZACK DIRECTLY [phone] The nurse will call you when your prescription is ready, please allow up to 72 hrs for processing. documented in this encounter Plan of Treatment Not on file documented as of this encounter Visit Diagnoses Not on filedocumented in this encounter Care Teams Blocker Hand Relationship Specialty Start Date End Date Ashley Calixto MD [address] [place] [address] PCP - General 12/21/11 12/10/14 documented as of this encounter
--- OUTSIDE RECORDS SUMMARY | 2023-09-29 00:50 | XMS_ITS | Encounter Summary ---
[place] [address] Care Team Providers Care Stamper Blocker Name Role Phone Ashley Calixto MD Primary Care Provider [phone] Encounter Details Date Type Department Care Team (Latest Contact Info) Description 12/19/2013 Anti-Coag Telephone [place] [phone] Erica Park RN S/P total knee arthroplasty, [...] Therapeutic Range: 2.0-3.0 INR: 2.0 Drawn by: [facility] Patient presents with no signs of bleeding [...] (ABNORMAL) External Lab Results (12/19/2013) POC INR 2.0(Hand Engraver al Lab) 0.9 - 1.1 Comment:Renae ROSE Historical Provider CHEMISTRY ORDERAB LES documented in this encounter Visit Diagnoses Diagnosis S/P total knee arthroplasty, left documented in this encounter Care Teams Stamper Blocker Relationship Specialty Start Date End Date Ashley Calixto MD [address] [place] [address] PCP - General 12/21/11 12/10/14 documented as of this encounter
--- OUTSIDE RECORDS SUMMARY | 2023-09-29 00:50 | XMS_ITS | Encounter Summary ---
Author Organization [facility] [place] [address] Care Team Providers Care Aluminum Siding Applicator Name Role Phone Ashley Calixto MD Primary Care Provider [phone] Reason for Visit * Reason Onset Date Comments Pre Procedure Call 10/03/2013 Encounter Details Date Type Department Care Team (Late st Contact Info) Description 10/03/2013 [place] [address] Mihir Herrera MD [facility] [address] [place] [address] Pre Procedure Call Social History Tobacco Use [...] on filedocumented in this encounter Care Teams Aluminum Siding Applicator Relationship Specialty Start Date End Date Ashley Calixto MD [address] [place] [address] PCP - General 12/21/11 12/10/14 documented as of this encounter
--- OUTSIDE RECORDS SUMMARY | 2023-09-29 00:50 | XMS_ITS | Encounter Summary ---
Author Organization [facility] [place] [address] Care Team Providers Care Transition Rn Name Role Phone Ashley Calixto MD Primary Care Provider [phone] Encounter Details Date Type Department Care Team (Late st Contact Info) Description 12/02/2013 7:31 AM EDT Anesthesia Event [place] [address] Sachi Fontanez MD [facility] [place] [address] Anesthesia Record Procedure Summary Procedure Name Responsible [...] 0850 Break/Relief In FOWLER C GREE NWAY, NEAR EAST ARCHEOLOGY PROFESSOR 0908 An Tourn Deflated 0913 Break/Relief Out [...] by Margaret Álvarez RN 12/03/13 0602 by lEi Adames RN Incision 12/02/13; knee; 09/28 11/18 [...] 0634; metacarpal vein left (top of hand); nghh-kkb-mnessz catheter system; 18 gauge, 1 in length; [...] chlorhexidine Laterality: left Ultrasound Guidance: live and lpi-jq-xtkwb Skin Medication lidocaine 1% 5 ml Injection [...] and sober since 03/10. Hx IV drugs [id number]. Hx intranasal drugs [id number]. Allergies Allergen Reactions ??? Isoniazid ? Rash... [...] discussed with patient whom. Plan discussed with NEAR EAST ARCHEOLOGY PROFESSOR. [facility]. Assessment: documented in this encounter Plan of [...] chlorhexidine Laterality: left Ultrasound Guidance: live and wfj-jr-qeqta Skin Medication lidocaine 1% 5 ml Injection [...] Events/Notes Events: ??None Additional Notes: ??+Clear CSF Resident/NEAR EAST ARCHEOLOGY PROFESSOR: Nataly Rothman Fellow: Attending Physician: ??Juli Fontanez [...] chlorhexidine Laterality: left Ultrasound Guidance: live and rel-ds-gkmpv Skin Medication lidocaine 1% 5 ml Injection [...] Events/Notes Events: None Additional Notes: +Clear CSF Resident/NEAR EAST ARCHEOLOGY PROFESSOR: Nataly Rothman Fellow: Attending Physician: Juli Fontanez ~~~~~~~~~~~~~~~~~~~~~~~~~~~~~~~~~~~~~~~~~~~~~~~~~~~~~~~~~~~~ Marcelina Rothman NEAR EAST ARCHEOLOGY PROFESSOR DROP HAMMER SETTER UP [facility] * ANE NEURAXIAL UPDATED (12/02/2013 8:30 [...] chlorhexidine Laterality: left Ultrasound Guidance: live and oow-av-golqx Skin Medication lidocaine 1% 5 ml Injection [...] Events/Notes Events: ??None Additional Notes: ??+Clear CSF Resident/NEAR EAST ARCHEOLOGY PROFESSOR: Nataly Rothman Fellow: Attending Physician: ??Juli Fontanez [...] chlorhexidine Laterality: left Ultrasound Guidance: live and brz-zr-hlxsq Skin Medication lidocaine 1% 5 ml Injection [...] Events/Notes Events: None Additional Notes: +Clear CSF Resident/NEAR EAST ARCHEOLOGY PROFESSOR: Nataly Rothman Fellow: Attending Physician: Jlui Fontanez ~~~~~~~~~~~~~~~~~~~~~~~~~~~~~~~~~~~~~~~~~~~~~~~~~~~~~~~~~~~~ Marcelina Rothman CRNA DROP HAMMER SETTER UP [facility] * Anesthesia Block (12/02/2013 8:30 AM [...] chlorhexidine Laterality: left Ultrasound Guidance: live and fau-ad-cpgwn Skin Medication lidocaine 1% 5 ml Injection [...] chlorhexidine Laterality: left Ultrasound Guidance: live and thk-vi-cjlej Skin Medication lidocaine 1% 5 ml Injection [...] insertion: L2-3 Needle approach: midline Needle Type: [place] Number of attempts: 1 Intrathecal Injection The patient received the following medication/s as an intrathecalinjection: Bupivacaine 0.75% w dextrose 2 ml Fentanyl 25 mcg Events/Notes Events: None Additional Notes: +Clear CSF Resident/NEAR EAST ARCHEOLOGY PROFESSOR: Nataly Rothman Fellow: Attending Physician: Juli Fontanez ~~~~~~~~~~~~~~~~~~~~~~~~~~~~~~~~~~~~~~~~~~~~~~~~~~~~~~~~~~~~ Jose Juan Freeman MD DROP HAMMER SETTER UP [facility] documented in this encounter Visit Diagnoses [...] mL/hr documented in this encounter Care Teams Transition Rn Relationship Specialty Start Date End Date Ashley Calixto MD [facility] [address] [place] [address] PCP - General 12/21/11 12/10/14 documented as of this encounter
--- OUTSIDE RECORDS SUMMARY | 2023-09-29 00:50 | XMS_ITS | Encounter Summary ---
Author Organization [facility] [place] [address] Care Team Providers Care Garment Folder Name Role Phone Ashley Calixto MD Primary Care Provider [phone] Reason for Visit * Reason Onset Date Comments Post Procedure Call 12/19/2013 Encounter Details Date Type Department Care Team (Late st Contact Info) Description 12/19/2013 [place] [address] Mihir Herrera MD [facility] [place] [address] Post Procedure Call Social History Tobacco Use [...] question Best number to reach you # [phone] Kathya The nurse continuously monitors all messages and will return your call before the end of the day. The nurse may need to consult the surgeon about your question which may delay the return call by 24hrs. documented in this encounter Plan of Treatment Not on file documented as of this encounter Visit Diagnoses Not on filedocumented in this encounter Care Teams Garment Folder Relationship Specialty Start Date End Date Ashley Calixto MD [address] [place] [address] PCP - General 12/21/11 12/10/14 documented as of this encounter
--- OUTSIDE RECORDS SUMMARY | 2023-09-29 00:50 | XMS_ITS | Encounter Summary ---
[place] [address] Care Team Providers Care Racing Secretary Name Role Phone Ashley Calixto MD Primary Care Provider [phone] Encounter Details Date Type Department Care Team (Latest Contact Info) Description 12/12/2013 Anti-Coag Telephone [place] [phone] Yajaira Angel RN S/P total knee arthroplasty, [...] Therapeutic Range: 2.0-3.0 INR: 2.6 Drawn by: [facility] Patient presents with no signs of bleeding [...] left documented in this encounter Care Teams Racing Secretary Relationship Specialty Start Date End Date Ashley Calixto MD [facility] [address] [place] [address] PCP - General 12/21/11 12/10/14 documented as of this encounter
--- OUTSIDE RECORDS SUMMARY | 2023-09-29 00:50 | XMS_ITS | Encounter Summary ---
Author [place] [address] Care Team Providers Care Shipping And Receiving Specialist Name Role Phone Ashley Calixto MD Primary Care Provider Encounter Details Date Type Department Care Team (Latest Contact Info) Description 12/06/2013 Anti-Coag Telephone [place] [address] Erica Park RN S/P total knee arthroplasty, [...] (ABNORMAL) External Lab Results (12/06/2013) POC INR 1.3(Timber Robber al Lab) 0.9 - 1.1 Comment:Renae Historical Provider CHEMISTRY ORDERAB LES documented in this encounter Visit Diagnoses Diagnosis S/P total knee arthroplasty, left documented in this encounter Care Teams Shipping And Receiving Specialist Relationship Specialty Start Date End Date Ashley Calixto MD [address] [place] [address] PCP - General 12/21/11 12/10/14 documented as of this encounter
--- OUTSIDE RECORDS SUMMARY | 2023-09-29 00:50 | XMS_ITS | Encounter Summary ---
[place] [address] Care Team Providers Care Bundle Breaker Name Role Phone Ashley Calixto MD Primary Care Provider [phone] Encounter Details Date Type Department Care Team (Latest Contact Info) Description 12/23/2013 Anti-Coag Telephone [place] [address] Meghana Gleason, RN S/P total knee arthroplasty, [...] Therapeutic Range: 2.0-3.0 INR: 2.3 Drawn by: [facility] Patient presents with no signs of [...] left documented in this encounter Care Teams Bundle Breaker Relationship Specialty Start Date End Date Ashley Calixto MD [address] [place] [address] PCP - General 12/21/11 12/10/14 documented as of this encounter
--- OUTSIDE RECORDS SUMMARY | 2023-09-29 00:51 | XMS_ITS | Encounter Summary ---
Author Organization [facility] [place] [address] Care Team Providers Care Career Services Representative Name Role Phone Ashley Calixto MD Primary Care Provider [phone] Reason for Visit * Reason Comments Left Knee Pain Encounter Details Date Type Department Care Team (Late st Contact Info) Description 10/15/2012 4:15 PM EDT Office [place] [address] Lj Braden MD [facility] [place] [address] Knee pain (Primary Dx) Discharge Disposition: Home [...] on following up with Dr. 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
--- OUTSIDE RECORDS SUMMARY | 2023-09-29 00:51 | XMS_ITS | Encounter Summary ---
Author Organization [facility] Address [facility] [place] [address] Care Team Providers Care Program Coordinator For Residence Life Name Role Phone Ashley Calixto MD Primary Care Provider [phone] Encounter Details Date Type Department Care Team (Late st Contact Info) Description 11/12/2012 2:48 PM EDT - 11/12/2012 11:59 PM EDT Hospital Encounter XRay at [address] [place] [address] CLINIC, Michelle Montalvo MD [facility] [address] LTBI (latent tuberculosis infection) Discharge Disposition: Home [...] tuberculosis documented in this encounter Care Teams Program Coordinator For Residence Life Relationship Specialty Start Date End Date Ashley Calixto MD [facility] [address] [place] [address] PCP - General 12/21/11 12/10/14 documented as of this encounter"
--- OUTSIDE RECORDS SUMMARY | 2023-09-29 00:51 | XMS_ITS | Encounter Summary ---
Author Organization [facility] [place] [address] Care Team Providers Care University Controller Name Role Phone Ashley Calixto MD Primary Care Provider [phone] Reason for Visit * Reason Comments Illness Encounter Details Date Type Department Care Team (Late st Contact Info) Description 11/27/2012 1:30 PM EDT Office Visit [place] [address] Michelle Cobian MD [facility] [place] [address] LTBI (latent tuberculosis infection) (Primary Dx) Discharge [...] had at least 5 TSTs done on longterm/senior care intake, all of which have been at [facility]. He reports there has never been redness or induration, and he was told they were negative.He was working with a chemical and developed severe SOB for which he presented to [facility] and was told the CXR looked like [...] - none known Healthcare work - none Jail or homeless detention experience - longterm up to a year 5 times International [...] old and 16 yo. 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 [...] Michelle Cobian MD Infectious Diseases Attending Pager [phone] minutes were spent in this gkkx-up-swcb encounter, during which 30 was spent counseling. documented in this encounter Plan of Treatment Not on file documented as of this encounter Visit Diagnoses Diagnosis LTBI (latent tuberculosis infection)- Primary Nonspecific reaction to tuberculin skin test without active tuberculosis documented in this encounter Care Teams University Controller Relationship Specialty Start Date End Date Ashley Calixto MD [address] [facility] [place] [address] PCP - General 12/21/11 12/10/14 documented as of this encounter
--- OUTSIDE RECORDS SUMMARY | 2023-09-29 00:51 | XMS_ITS | Encounter Summary ---
Author Organization [facility] [place] [address] Care Team Providers Care Sports Team Marketing Intern Name Role Phone Ashley Calixto MD Primary Care Provider [phone] Encounter Details Date Type Department Care Team (Late st Contact Info) Description 09/18/2013 Telephone [place] [phone] Mihir Herrera MD [facility] [place] [address] Social History Tobacco Use Types Packs/Day Years [...] name: Zack Langley : 1970 Phone number: [phone] (home) Mailing address: [address] [facility] [address] AGE: 43 y.o. REASON FOR APPOINTMENT: KNEE PAIN o REFERRED BY DR. PUTNAM AT HIS 09/18 APPOINTMENT. COMPLETE. documented in this encounter Plan of Treatment Not on file documented as of this encounter Visit Diagnoses Not on filedocumented in this encounter Care Teams Sports Team Marketing Intern Relationship Specialty Start Date End Date Ashley Calixto MD [facility] [address] [facility] 1 [place] [address] PCP - General 12/21/11 12/10/14 documented as of this encounter
--- OUTSIDE RECORDS SUMMARY | 2023-09-29 00:51 | XMS_ITS | Encounter Summary ---
Author Organization [facility] Address [facility] [place] [address] Care Team Providers Care Section Leader Screen Printing Name Role Phone Ashley Calixto MD Primary Care Provider [phone] Encounter Details Date Type Department Care Team (Late st Contact Info) Description 10/11/2012 Orders [place] [address] Michelle Cobian MD [facility] [place] [address] LTBI (latent tuberculosis infection) (Primary Dx) Social [...] tuberculosis documented in this encounter Care Teams Section Leader Screen Printing Relationship Specialty Start Date End Date Ashley Calixto MD [facility] [address] [place] [address] PCP - General 12/21/11 12/10/14 documented as of this encounter
--- OUTSIDE RECORDS SUMMARY | 2023-09-29 00:51 | XMS_ITS | Encounter Summary ---
Author Organization [facility] Address [facility] [place] [address] Care Team Providers Care Sap Basis Administrator Name Role Phone Ashley Calixto MD Primary Care Provider [phone] Encounter Details Date Type Department Care Team (Late st Contact Info) Description 09/18/2013 2:15 PM EDT - 09/18/2013 11:59 PM EDT Hospital Encounter XRay at [address] [place] [address] Left knee pain Social History Tobacco Use [...] leg documented in this encounter Care Teams Sap Basis Administrator Relationship Specialty Start Date End Date Ashley Calixto MD [address] [place] [address] PCP - General 12/21/11 12/10/14 documented as of this encounter
--- OUTSIDE RECORDS SUMMARY | 2023-09-29 00:51 | XMS_ITS | Encounter Summary ---
Author Organization [facility] [place] [address] Care Team Providers Care Animal Care Attendant Name Role Phone Ashley Calixto MD Primary Care Provider [phone] Reason for Visit * Reason Comments Left Knee Pain Encounter Details Date Type Department Care Team (Latest Contact Info) Description 09/18/2013 3:15 PM EDT Office [place] [address] Lj Braden MD [facility] [place] [address] Osteoarthritis of knee (Primary Dx) Discharge Disposition: [...] He was seen by a physician in [facility]. He also has hepatitis C and [...] leg documented in this encounter Care Teams Animal Care Attendant Relationship Specialty Start Date End Date Ashley Calixto MD [address] [place] [address] PCP - General 12/21/11 12/10/14 documented as of this encounter
--- OUTSIDE RECORDS SUMMARY | 2023-09-29 00:51 | XMS_ITS | Encounter Summary ---
Author Organization [facility] [place] [address] Care Team Providers Care Round Cutter Operator Name Role Phone Ashley Calixto MD Primary Care Provider [phone] Encounter Details Date Type Department Care Team (Late st Contact Info) Description 07/02/2012 1:15 PM EDT Office Visit [place] [address] Lj Braden MD [facility] [address] [place] [address] Knee pain (Primary Dx) Discharge Disposition: Home [...] knee. He has previously been arthroscoped in [place] by Dr. Fagan, at which time he [...] mg documented in this encounter Care Teams Round Cutter Operator Relationship Specialty Start Date End Date Ashley Calixto MD [address] [facility] 1 [place] [address] PCP - General 12/21/11 12/10/14 documented as of this encounter
--- OUTSIDE RECORDS SUMMARY | 2023-09-29 00:51 | XMS_ITS | Encounter Summary ---
Author Organization [facility] Address [facility] [place] [address] Care Team Providers Care Linux System Admin Name Role Phone Ashley Calixto MD Primary Care Provider [phone] Encounter Details Date Type Department Care Team (Latest Contact Info) Description 03/18/2013 8:00 AM EST - 03/18/2013 11:59 PM [facility] Hospital En[place] [address] Patience Whitman, [facility] [place] [address] Chronic hepatitis C Discharge Disposition: Home Social [...] 03/18/2013 09:13 am) Patient Info ID: ? [id number] ? : [birth year] (42 yrs) Name: ? ZACK Mathis MERRY ? Visit Date: 03/18/2013 08:43 am Performed By Performed By: ?Malika Calderón RDMS Associate: ? Josef WEBSTER, Yaritza Attending: ? Pablo Larsen MD Referred By: ? MENDEZ CUENCA MD Service(s) Provided [facility] - Abdominal Complete Survey - [id number] ? [id number] Indications Hepatitis C Comparison CT abd and [...] Final 03/18/2013 09:13 am) Patient Info ID: [id number] : [birth year] (42 yrs) Name: ZACK LANGLEY Visit Date: 03/18/2013 08:43 am Performed By Performed By: Malika Calderón RDMS Associate: Yaritza Bahena MD Attending: Pablo Larsen MD Referred By: MENDEZ CUENCA MD Service(s) Provided [facility] - Abdominal Complete Survey - [phone] [id number] Indications Hepatitis C Comparison CT abd and [...] coma documented in this encounter Care Teams Linux System Admin Relationship Specialty Start Date End Date Ashley Calixto MD [address] [place] [address] [facility] 1 [place] [address] PCP - General 12/21/11 12/10/14 documented as of this encounter
--- OUTSIDE RECORDS SUMMARY | 2023-09-29 00:51 | XMS_ITS | Encounter Summary ---
Author Organization [facility] [place] [address] Care Team Providers Care Ventilating Expert Name Role Phone Ashley Calixto MD Primary Care Provider Reason for Visit * Reason Comments Follow-up Encounter Details Date Type Department Care Team (Late st Contact Info) Description 07/27/2012 3:30 PM EDT Follow-Up Dermatology at [address] [address] Geri Styles MD [facility] [address] [place] [address] Rash (Primary Dx) Discharge Disposition: Home Social [...] supervision with direct supervision immediately available. (definition: [facility] GME Policy Statement on Graduate Medical Education, Supervision of Graduate Medical Trainees) I was immediately available to Dr. Styles for questions and discussion regarding this visit. I have reviewed her encounter note details and level of service. 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 Geri Styles MD Resident in Dermatology [facility] Staff oil well directional surveyor: Gray Brewer MD Section of Dermatology [facility] I performed the above scribed service and agree with the accuracy of the documentation in this encounter. documented in this encounter Plan of Treatment Not on file documented as of this encounter Visit Diagnoses Diagnosis Rash- Primary Rash and other nonspecific skin eruption documented in this encounter Care Teams Ventilating Expert Relationship Specialty Start Date End Date Ashley Calixto MD [facility] [address] [place] [address] PCP - General 12/21/11 12/10/14 documented as of this encounter
--- OUTSIDE RECORDS SUMMARY | 2023-09-29 00:51 | XMS_ITS | Encounter Summary ---
[place] [address] Care Team Providers Care Product Steward Name Role Phone Ashley Calixto MD Primary Care Provider [phone] Reason for Visit * Reason Onset Date Comments Prior Authorization 07/09/2013 hep c treatm ent Encounter Details Date Type Department Care Team (Late st Contact Info) Description 07/09/2013 [place] [address] Haley Mora early childhood director (hep c treatment ) Social History Tobacco [...] & Phone#: brserinava Insurance & Phone #: [place] [phone] ID #: [id number] Notes: waiting on response documented in this encounter Plan of Treatment Not on file documented as of this encounter Visit Diagnoses Not on filedocumented in this encounter Care Teams Product Steward Relationship Specialty Start Date End Date Ashley Calixto MD [address] [place] [address] PCP - General 12/21/11 12/10/14 documented as of this encounter
--- OUTSIDE RECORDS SUMMARY | 2023-09-29 00:51 | XMS_ITS | Encounter Summary ---
Author Organization [facility] [place] [address] Care Team Providers Care Television Inspector Name Role Phone Ashley Calixto MD Primary Care Provider [phone] Reason for Visit * Reason Comments Follow-up Encounter Details Date Type Department Care Team (Late st Contact Info) Description 07/27/2012 10:00 AM EDT [place] [address] Patience Whitman APRN [facility] DR [place] [address] Chronic hepatitis C (Primary Dx) Discharge Disposition: [...] this encounter Progress Notes * Patience Whitman, METAL SASH SETTER - 07/27/2012 10:16 AM EDT Subjective: Patient ID: Zack Langley is a 42 y.o. male. HPI Mr. Langley is a pleasant 41 year old white male who was seen today at [facility] in follow-up for hepatitis C. He was only recently told that he had hepatitis C, but he tells me today that apparently he tested positive in 2007. He has risk factors for HCV dating back to to 1986 when hestarted using intranasal drugs. 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 He had 2 tattoos placed in [facility] in 1989 then in 1999. He has [...] and perhaps the same is true of lime hide inspector. 2. Hepatitis C, genotype 2, stage 0-1. [...] MD HEMATOLOGY ORDERABL ES Performing Organization Address [facility] Co de Phone Number CERJERE KNAPPENNIUM * Prothrombin Time (07/27/2012 2:09 PM EDT) PT 12.0 12.0 - 15.0 sec CERNER MILLENNIUM Comment: [facility] Transfusion Committee Guidelines: INR less than [...] MD HEMATOLOGY ORDERABL ES Performing Organization Address [facility] Co de Phone Number CERJERE KNAPPENNIUM * (ABNORMAL) Comprehensive metabolic panel (non-fasting) (07/27/2012 2:09 PM EDT) Glucose Lvl 218(H) 60 - 199 mg/dL CERNER MILLENNIUM Comment:Diabetes: >=200 mg/d L plus symptoms BUN 9(L) 10 - 20 mg/dL CERNER MILLENNIUM Creatinine 0.63(L) 0.80 - 1.50 mg/dL CERNER MILLENNIUM Comment: Please note that the pediatric reference intervals supplied above were not validated at [facility]. Results from pediatric patients should be interpreted [...] coma documented in this encounter Care Teams Television Inspector Relationship Specialty Start Date End Date Ashley Calixto MD [facility] [address] [place] [address] PCP - General 12/21/11 12/10/14 documented as of this encounter
--- OUTSIDE RECORDS SUMMARY | 2023-09-29 00:51 | XMS_ITS | Encounter Summary ---
Author Organization [facility] [place] [address] Care Team Providers Care Loan Originator Name Role Phone Ashley Calixto MD Primary Care Provider [phone] Encounter Details Date Type Department Care Team (Latest Contact Info) Description 07/27/2012 10:45 AM EDT - 07/27/2012 11:59 PM EDT Hospital [place] [id number] Chronic hepatitis C Social History Tobacco Use [...] mg documented in this encounter Care Teams Loan Originator Relationship Specialty Start Date End Date Ashley Calixto MD [address] [place] [address] PCP - General 12/21/11 12/10/14 documented as of this encounter
--- OUTSIDE RECORDS SUMMARY | 2023-09-29 00:51 | XMS_ITS | Encounter Summary ---
[place] [address] Care Team Providers Care Sonoscope Operator Name Role Phone Ashley Calixto MD Primary Care Provider [phone] Encounter Details Date Type Department Care Team (Late st Contact Info) Description 07/30/2013 Orders [place] [address] Meghana Gleason, RN Right knee pain (Primary [...] leg documented in this encounter Care Teams Sonoscope Operator Relationship Specialty Start Date End Date Ashley Calixto MD [address] [place], [place] [id number] PCP - General 12/21/11 12/10/14 documented as of this encounter
--- OUTSIDE RECORDS SUMMARY | 2023-09-29 00:51 | XMS_ITS | Encounter Summary ---
Author Organization [facility] [place] [address] Care Team Providers Care Chief Financial Officer Name Role Phone Ashley Calixto MD Primary Care Provider [phone] Reason for Visit * Reason Comments Hepatitis C Encounter Details Date Type Department Care Team ([facility] st Contact Info) Description 12/23/2011 3:30 PM EDT Follow-Up [place] [address] Rebecca Borrero, [facility] [place] [address] Chronic hepatitis C (Primary Dx) Discharge Disposition: [...] coma documented in this encounter Care Teams Chief Financial Officer Relationship Specialty Start Date End Date Ashley Calixto MD [address] [place] [address] PCP - General 12/21/11 12/10/14 documented as of this encounter
--- OUTSIDE RECORDS SUMMARY | 2023-09-29 00:51 | XMS_ITS | Encounter Summary ---
Author Organization [facility] [place] [address] Care Team Providers Care Pharmaceutical Representative Name Role Phone Ashley Calixto MD Primary Care Provider [phone] Reason for Visit * Reason Comments Follow-up Encounter Details Date Type Department Care Team (Late st Contact Info) Description 11/12/2012 3:30 PM EDT [place] [address] Judy Whitman APRN [facility] [place] [address] Chronic hepatitis C (Primary Dx) Discharge Disposition: [...] white male who was seen today at [facility] in follow-up for hepatitis C. He was only recently told that he had hepatitis C, but he tells me today that apparently he tested positive in 2007. He has risk factors for HCV dating back to to 1986 when hestarted using intranasal drugs. 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 He had 2 tattoos placed in [facility] in 1989 then in 1999. He has [...] ??? Mother 54 cancer ??? Father 56 [place] ??? Sister Alive age 61 ??? Sister [...] * HIV (03/18/2013 9:31 AM EST) Pathologist [facility] HIV 1/2 Ab Negative Negative [facility] Blood specimen (specimen) 03/18/2013 9:31 AM EST 03/18/2013 9:38 AM EST Narrative Resulting Agency Comment Spec In Lab Taran Peralta MD IMMUNOLOGY ORDERABL ES [facility] * (ABNORMAL) TSH (03/18/2013 9:31 AM EST) [...] intervals supplied above were not validated at [facility]. Results from pediatric patients should be interpreted [...] Comment Spec In Lab Taran Peralta MD [facility] RANDY MORALES * abdomen complete (03/18/2013 8:49 AM EST) Anatomical Region Laterality Modality Abdomen, Vascular Ultrasound 03/18/2013 8:49 AM EST Narrative 03/18/2013 9:16 AM EST ?Abdominal ? (Signed Final 03/18/2013 09:13 am) Patient Info ID: ? [id number] ? : [birth year] (42 yrs) Name: ? KALEY SOUSA ? Visit Date: 03/18/2013 08:43 am Performed By Performed By: ?Malika Calderón RDMS Associate: ? Yaritza Bahena MD Attending: ? Chava WEBSTER, Pablo Angel Referred By: ? TARAN PERALTA MD Service(s) Provided [facility] - Abdominal Complete Survey - [phone] ? [id number] Indications Hepatitis C Comparison CT abd and [...] Final 03/18/2013 09:13 am) Patient Info ID: [id number] : [birth year] (42 yrs) Name: KALEY SOUSA Visit Date: 03/18/2013 08:43 am Performed By Performed By: Malika Calderón RDMS Associate: Yaritza Bahena MD Attending: Pablo Larsen MD Referred By: TARAN PERALTA MD Service(s) Provided [facility] - Abdominal Complete Survey - [phone] Indications Hepatitis C Comparison CT abd and [...] documented in this encounter Care Teams Pharmaceutical Representative Relationship Specialty Start Date End Date Ashley Calixto MD [address] [place] [address] PCP - General 12/21/11 12/10/14 documented as of this encounter
--- OUTSIDE RECORDS SUMMARY | 2023-09-29 00:51 | XMS_ITS | Encounter Summary ---
[place] [address] Care Team Providers Care Change Person Name Role Phone Ashley Calixto MD Primary Care Provider [phone] Reason for Visit * Reason Comments Advice Only new pt work up Encounter Details Date Type Department Care Team (Late st Contact Info) Description 07/27/2012 12:45 PM EDT Office [place] [address] Danica [place] MD [address] [place] [address] [place] [address] Hepatitis C (Primary Dx); Neurodermatitis; Abnormal laboratory [...] a 42-year-old who reports that [place], during the summer, he developed [...] chronicus and the second biopsy, done at [facility], showed only excoriation. Note is made that [...] PM EDT) Quantiferon TB Positive Negative [facility] Comment: Nil (IU/mL)= 0.02 TB Ag minus [...] [place] MD CHEMISTRY ORDERABLES Performing Organization Address [facility] de Phone Number CERJERE KNAPPENNIUM * MONTY (07/27/2012 2:09 PM EDT) MONTY Neg Neg CERNER MILLENNIUM Blood specimen (specimen) 07/27/2012 2:09 PM EDT 07/30/2012 8:26 AM EDT Narrative Resulting Agency Comment Spec In Lab Danica [place] MD IMMUNOLOGY ORDERABLE S Performing Organization Address [facility] Co de Phone Number RANDY MORALES documented in this encounter Visit Diagnoses Diagnosis Hepatitis C- Primary Unspecified viral hepatitis C without hepatic coma Neurodermatitis Lichenification and lichen simplex chronicus Abnormal laboratory test Other abnormal clinical finding Joint pain Pain in joint, site unspecified documented in this encounter Care Teams Change Person Relationship Specialty Start Date End Date Ashley Calixto MD [address] [place] [address] PCP - General 12/21/11 12/10/14 documented as of this encounter
--- OUTSIDE RECORDS SUMMARY | 2023-09-29 00:51 | XMS_ITS | Encounter Summary ---
Author Organization [facility] [place] [address] Care Team Providers Care High School Guidance Counselor Name Role Phone Ashley Calixto MD Primary Care Provider [phone] Encounter Details Date Type Department Care Team (Late st Contact Info) Description 07/12/2012 Telephone Dermatology at [facility] [address] [place] [address] Geri Styles MD [facility] [address] [place] [address] Social History Tobacco Use Types Packs/Day Years [...] on filedocumented in this encounter Care Teams High School Guidance Counselor Relationship Specialty Start Date End Date Ashley Calixto MD [address] [facility] [address] [place] [address] PCP - General 12/21/11 12/10/14 documented as of this encounter
--- OUTSIDE RECORDS SUMMARY | 2023-09-29 00:51 | XMS_ITS | Encounter Summary ---
Author Organization [facility] [place] [address] Care Team Providers Care District Court Bailiff Name Role Phone Ashley Calixto MD Primary Care Provider [phone] Reason for Referral * Consultation (Routine) - Complete-Ref Provider Notified Specialty Diagnoses / Procedures Referred By Casey reyes Referred To Contact Dermatology Diagnoses Pruritus Geri Trevino MD [facility] [address] [place] [address] Lj Moore MD [address] [place] [address], [facility] [address] Referral ID Status Reason Start Date Expiration Date Visits Requested Visits Authorized [id number] Complete-Ref Provider Notified Consult, Test & Treat 04/23/2012 10/20/2012 1 1 Reason for Visit * Reason Comments Dermatitis Encounter Details Date Type Department Care Team (Late st Contact Info) Description 04/23/2012 2:40 PM EST Follow-Up Dermatology at [facility] [address] [place] [address] Geri Trevino MD [facility] DR [address] [place] [address] Pruritus (Primary Dx); Neoplasm of unspecified nature [...] or skin problems Social/Occupational History: 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 Moore in [facility] (closer for patient) to discuss starting nbUVB [...] concerns. Geri Trevino MD Resident in Dermatology [facility] Patient seen and evaluated with staff oil pumper: Marcelina Berg MD Section of Dermatology [facility] documented in this encounter Plan of Treatment [...] 6:22 PM EST) Surgical Pathology Report ? [facility] ? Provider: ?? GERI TREVINO ? Pt. Name: ?? KALEY SOUSA ? Acc #: ?[id number] ? Pt. ? Col Date: ?? 04/23/2012 [...] macule. ? Sections/Processing: ??Inked. ??Trisected. ??(T1) ? [facility] ? Provider: ?? GERI TREVINO ? Pt. Name: ?? KALEY SOUSA ? Acc #: ?[id number] ? Pt. ? Col Date: ?? 04/23/2012 [...] Geri Trevino MD PATHOLOGY/CYTOLOGY O RDERABLES RANDY KNAPPENNIUM * (ABNORMAL) Differential, Automated (04/23/2012 4:28 PM [...] EST Marcelina Berg MD HEMATOLOGY ORDERABLE S [facility] * (ABNORMAL) Comprehensive metabolic panel (non-fasting) (04/23/2012 4:28 PM EST) Glucose Lvl 128 60 - 199 mg/dL CERNER MILLENNIUM Comment:Diabetes: >=200 mg/d L plus symptoms BUN 9(L) 10 - 20 mg/dL CERNER MILLENNIUM Creatinine 0.87 0.80 - 1.50 mg/dL CERNER MILLENNIUM Comment: Please note that the pediatric reference intervals supplied above were not validated at [facility]. Results from pediatric patients should be interpreted [...] In Lab Marcelina Berg MD CHEMISTRY ORDERABLES [facility] * CBC (with Diff) (04/23/2012 4:28 PM [...] MD HEMATOLOGY ORDERABLE S Performing Organization Address [facility]/ZIP Co de Phone Number [employer] * Specimen to Pathology (NON-OR) (04/23/2012 4:17 PM EST) AP Specimen 04/23/2012 4:17 PM EST 04/23/2012 4:16 PM EST Narrative CERJERE KNAPPENNIUM - 04/23/2012 4:17 PM EST Specimen requisition ordered. ??Separate Pathology report to follow Marcelina Berg MD PATHOLOGY/CYTOLOGY O RDERABLES Performing Organization Address [facility] Co de Phone Number [employer] documented in this encounter Visit Diagnoses Diagnosis Pruritus- Primary Unspecified pruritic disorder Neoplasm of unspecified nature of bone, soft tissue, and skin documented in this encounter Care Teams District Court Bailiff Relationship Specialty Start Date End Date Ashley Calixto MD [address] [place] [address] PCP - General 12/21/11 12/10/14 documented as of this encounter
--- OUTSIDE RECORDS SUMMARY | 2023-09-29 00:51 | XMS_ITS | Encounter Summary ---
[place] [address] Care Team Providers Care Carpet Technician Name Role Phone Ashley Calixto MD Primary Care Provider [phone] Reason for Visit * Reason Comments Pruritus Encounter Details Date Type Department Care Team (Late st Contact Info) Description 06/11/2012 4:00 PM EDT Office Visit Dermatology [address] [facility] [address] [place] [address] Lj Moore MD [address], [facility] [place] [address] Neurodermatitis (Primary Dx) Social History Tobacco Use [...] hepatitis C but was told by his preschool associate teacher that he has very, very low titers and in fact desires to withhold initiation of treatment for the moment. The patient states that no one else at home has any dermatitis. He has an 18-year-old son and his significant other has no dermatitis. 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 He was seen at [facility] and treated with prednisone, doxycycline without significant improvement. 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 There is no evidence of a vasculitis. One option presented to the patient by Dr. Geri Styles at [facility] was for light treatment for this, and [...] chronicus documented in this encounter Care Teams Carpet Technician Relationship Specialty Start Date End Date Ashley Calixto MD [address] [place] [address] [address] PCP - General 12/21/11 12/10/14 documented as of this encounter
--- OUTSIDE RECORDS SUMMARY | 2023-09-29 00:51 | XMS_ITS | Encounter Summary ---
[place] [address] Care Team Providers Care Mortgage Loan Reviewer Name Role Phone Ashley Calixto MD Primary Care Provider [phone] Encounter Details Date Type Department Care Team (Latest Contact Info) Description 06/06/2013 3:54 PM EDT - 06/06/2013 11:59 PM EDT Hospital Encounter Non[place] [address] CLINIC, Ashley Michaels MD [address] [place] [address] Discharge Disposition: Home Social History [...] on filedocumented in this encounter Care Teams Mortgage Loan Reviewer Relationship Specialty Start Date End Date Ashley Calixto MD [address] [place] [address] PCP - General 12/21/11 12/10/14 documented as of this encounter
--- OUTSIDE RECORDS SUMMARY | 2023-09-29 00:51 | XMS_ITS | Encounter Summary ---
Author Organization [facility] [place] [address] Care Team Providers Care Coding Technician Name Role Phone Ashley Calixto MD Primary Care Provider [phone] Reason for Visit * Reason Comments Left Knee Pain knee pain Encounter Details Date Type Department Care Team (Late st Contact Info) Description 04/02/2013 4:15 PM EST [place] [address] Lj Braden MD [facility] [place] [address] Knee pain, left (Primary Dx) Discharge Disposition: [...] mg documented in this encounter Care Teams Coding Technician Relationship Specialty Start Date End Date Ashley Calixto MD [address] [place] [address] PCP - General 12/21/11 12/10/14 documented as of this encounter
--- OUTSIDE RECORDS SUMMARY | 2023-09-29 00:51 | XMS_ITS | Encounter Summary ---
Author Organization [facility] [place] [address] Care Team Providers Care Pumper Helper Name Role Phone Ashley Calixto MD Primary Care Provider [phone] Reason for Visit * Reason Comments Follow-up Encounter Details Date Type Department Care Team (Late st Contact Info) Description 05/24/2012 10:00 AM EDT Follow-Up [place] [address] Patience Whitman APRN [facility] [place] [address] Hepatitis C (Primary Dx); Rash Discharge Disposition: [...] this encounter Progress Notes * Patience Whitman, CHINESE LANGUAGE PROFESSOR - 05/24/2012 10:55 AM EDT Subjective: Patient [...] white male who was seen today at [facility] in follow-up for hepatitis C. He was only recently told that he had hepatitis C, but he tells me today that apparently he tested positive in 2007. He has risk factors for HCV dating back to to 1986 when hestarted using intranasal drugs. 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 He had 2 tattoos placed in intermediate in 1989 then in 1999. He has [...] eruption documented in this encounter Care Teams Pumper Helper Relationship Specialty Start Date End Date Ashley Calixto MD [address] [place] [address] PCP - General 12/21/11 12/10/14 documented as of this encounter
--- OUTSIDE RECORDS SUMMARY | 2023-09-29 00:51 | XMS_ITS | Encounter Summary ---
Author Organization [facility] Address [facility] [place] [address] Care Team Providers Care Brand Analyst Name Role Phone Awilda Pelayo ROSAURA Primary Care Provider [phone] Encounter Details Date Type Department Care Team (Latest Contact Info) Description 11/22/2011 9:52 AM EDT - 11/22/2011 11:59 PM EDT Hospital En[place] [phone] CLINIC, DR PAMELA Peralta, Mendez Duggan MD [facility] [place] [address] Hepatitis C; Hep C w/o coma, chronic [...] Carcamo RN - 11/22/2011 1:27 PM EDT [facility] Vascular and Interventional Radiology Biopsy Discharge Instructions [...] be reported to you by your primary transitional care nurse or the clinician who ordered the biopsy. Please do not call us for results as we will not have them. If you have not been contacted by your clinician within 5 business days you should call that officefor further information. When to call the Interventional Radiology Department: Please call with any questions or concerns. If it is during regular office hours, please call [phone]. If it is after regular office hours, or on weekends or holidays, please call [phone] and ask to speak to the Director Government regulatory consultant for Interventional Radiology. x You have received [...] Male Date of : 1970 (home) PCP AWILDA PELAYO APRN [phone] Date/Time of call: November 23, 2011/11:26 AM/ [...] Araujo RN - 11/17/2011 4:51 PM EDT [facility] NURSING DATABASE Name: KALEY SOUSA Date of : 1970 AGE 41 y.o. Address: [address] [address] (home) Mobile: No relevant phone numbers on [...] Date/Procedure Comments: 11/22/11 U/s-guided liver bx OPD [id number] vanessa well Laboratory Results: No results found [...] NOTE Procedure: Ultrasound guided liver biopsy. ACC#: [id number] Indication for Procedure: Hepatitis C, tissue sample [...] 11:30 AM EDT) Surgical Pathology Report ? [facility] ? Provider: ?? SABAS TEAGUE ?? Pt. Name: ?? KALEY SOUSA ? Acc #: ?[id number] ?Pt. ? Col Date: ?? 11/22/2011 ? [...] ? A - Percutaneous liver biopsy ? [facility] ? Provider: ?? SABAS TEAGUE ?? Pt. Name: ?? KALEY SOUSA ? Acc #: ?[id number] ?Pt. ? Col Date: ?? 11/22/2011 ? /Sex: ?1970,(41 years),Male ? Rec Date: ?? 11/22/2011 ? LOC: ?3W ? SURGICAL PATHOLOGY ? Clinical History/Diagnosis: ? HCV load / liver biopsy for [facility] 11/22/2011 11:3 0 AM EDT Sabas Teague MD PATHOLOGY/CYTOLOGY O HARINDER RANDY MORALES * IR all biopsy procedures (11/22/2011 11:19 AM EDT) Anatomical Region Laterality Modality X-Ray Angiograph y 11/22/2011 11:1 9 AM EDT Narrative 11/23/2011 7:48 PM EDT ?VIR ?? PROCEDURE NOTE ?Procedure: ?? Ultrasound guided liver biopsy. ? ACC#: ?? [id number] ?Indication ?? for Procedure: Hepatitis C, tissue [...] PROCEDURE NOTE Procedure: Ultrasound guided liverbiopsy. ACC#: [id number] Indication for Procedure: Hepatitis C, tissue sample [...] OF CARE TEST ORDERABLES Performing Organization Address [facility] Co de Phone Number RANDY MORALES * Platelet count (11/22/2011 10:15 AM EDT) Platelets 202 145 - 370 x10(3)/mcL [facility] Blood specimen (specimen) 11/22/2011 10:15 AM EDT 11/22/2011 10:41 AM EDT Narrative Resulting Agency Comment Spec In Lab Roman Alejandra MD HEMATOLOGY ORDERABLE S Performing Organization Address [facility] Co de Phone Number RANDY MORALES * Specimen to Pathology (NON-OR) (11/22/2011 10:00 AM EDT) AP Specimen 11/22/2011 10:0 0 AM EDT 11/22/2011 10:00 AM EDT Narrative RANDY MORALES - 11/22/2011 10:00 AM EDT Specimen requisition ordered. ??Separate Pathology report to follow Sabas Teague MD PATHOLOGY/CYTOLOGY O RDERABLES Performing Organization Address [facility] Co de Phone Number RANDY [...] mL/hr documented in this encounter Care Teams Brand Analyst Relationship Specialty Start Date End Date Awilda Pelayo, ROSAURA PCP - General 08/25/11 12/20/11 documented as of this encounter
--- OUTSIDE RECORDS SUMMARY | 2023-09-29 00:51 | XMS_ITS | Encounter Summary ---
Author Organization [facility] Address [facility] [place] [address] Care Team Providers Care Fresh Foods Cake Decorator Name Role Phone Ashley Calixto MD Primary Care Provider [phone] Encounter Details Date Type Department Care Team (Latest Contact Info) Description 06/06/2013 4:15 PM EDT - 06/06/2013 11:59 PM EDT [place] [address] Subha Ross MD [facility] [place] [address] Chronic hepatitis C; Fatigue Discharge Disposition: Home [...] Gran Abs 0.01 0.00 - 0.05 x10(3)/mcL [facility] Blood specimen (specimen) 06/06/2013 4:27 PM EDT 06/06/2013 4:33 PM EDT Subha Ross MD HEMATOLOGY ORDERABLE S Performing Organization Address [facility] Co de Phone Number [facility] * HCV Quant Devonte (06/06/2013 4:27 PM EDT) [facility] HCV Viral Load [id number] IU/mL [facility] HCV Viral Load Result: [id number] Indication for Study: Hepatitis C Infection Analysis: [...] is being performed in the [facility] Molecular Pathology Laboratory. Bertin Beach, Ph.D. Director, Molecular Pathology [facility] Comment: [VERIFIED DATE]06.11.13 Verified By:Michelle Ayala I (Electronic Signature) Blood specimen (specimen) 06/06/2013 4:27 PM EDT 06/10/2013 8:12 AM EDT Narrative Resulting Agency Comment Spec In Lab Subha Ross MD HEMATOLOGY ORDERABLE S Performing Organization Address [facility] de Phone Number [facility] * (ABNORMAL) Comprehensive metabolic panel (non-fasting) (06/06/2013 4:27 PM EDT) [facility] Glucose Lvl 244(H) 60 - 199 mg/dL [facility] Comment:Diabetes: >=200 mg/d L plus symptoms BUN 10 10 - 20 mg/dL [facility] MILLENNIUM Creatinine 0.72(L) 0.80 - 1.50 mg/dL CERNER MILLENNIUM Comment: Please note that the pediatric reference intervals supplied above were not validated at [facility]. Results from pediatric patients should be interpreted [...] Ross MD CHEMISTRY ORDERABLES Performing Organization Address [facility] de Phone Number CERNER RAENNIUM * (ABNORMAL) [...] MD HEMATOLOGY ORDERABLE S Performing Organization Address [facility] de Phone Number RANDY KNAPPENNIUM * TSH (06/06/2013 4:27 PM EDT) TSH 2.15 0.27 - 4.20 mcIU/mL [facility] MILLENNIUM Blood specimen (specimen) 06/06/2013 4:27 PM EDT 06/06/2013 4:33 PM EDT Narrative Resulting Agency Comment Spec In Lab Subha Ross MD CHEMISTRY ORDERABLES [facility] documented in this encounter Visit Diagnoses Diagnosis Chronic hepatitis C Chronic hepatitis C without mention of hepatic coma Fatigue Other malaise and fatigue documented in this encounter Care Teams Fresh Foods Cake Decorator Relationship Specialty Start Date End Date Ashley Calixto MD [address] [place] [address] PCP - General 12/21/11 12/10/14 documented as of this encounter
--- OUTSIDE RECORDS SUMMARY | 2023-09-29 00:51 | XMS_ITS | Encounter Summary ---
[place] [address] Care Team Providers Care Milk Of Lime Slaker Name Role Phone Ashley Calixot MD Primary Care Provider [phone] Encounter Details Date Type Department Care Team (Late st Contact Info) Description 08/14/2013 Telephone Gastroenterology [place] [phone] uL Nicole RN Social History Tobacco Use Types [...] Nicole RN - 08/14/2013 11:22 AM EDT [place] sovaldi and ribavirin per phone call from Michael Wilde [phone] [place] [facility], who stated that patient had minimal liver involvement and that it was reasonable to wait for treatment. Will forward to Hayley Whitman NP. documented in this encounter Plan of Treatment Not on file documented as of this encounter Visit Diagnoses Not on filedocumented in this encounter Care Teams Milk Of Lime Slaker Relationship Specialty Start Date End Date Ashley Calixto MD [facility] [address] [facility] [address] [place] [address] PCP - General 12/21/11 12/10/14 documented as of this encounter
--- OUTSIDE RECORDS SUMMARY | 2023-09-29 00:51 | XMS_ITS | Encounter Summary ---
Author Organization [facility]ly [facility] [place] [address] Care Team Providers Care Parts Counter Associate Name Role Phone Ashley Calixto MD Primary Care Provider [phone] Encounter Details Date Type Department Care Team (Late st Contact Info) Description 06/25/2012 Telephone Dermatology at [facility] [address] [place] [address] Geri Styles MD [facility] [address] [place] [address] Social History Tobacco Use Types Packs/Day Years [...] on filedocumented in this encounter Care Teams Parts Counter Associate Relationship Specialty Start Date End Date Ashley Calixto MD [facility] [address] [facility] [address] [place] [address] PCP - General 12/21/11 12/10/14 documented as of this encounter
--- OUTSIDE RECORDS SUMMARY | 2023-09-29 00:51 | XMS_ITS | Encounter Summary ---
Author Organization [facility] [place] [address] Care Team Providers Care Dielectric Press Operator Name Role Phone Awilda Pelayo ROSAURA Primary Care Provider [phone] Reason for Visit * Reason Comments Rash Encounter Details Date Type Department Care Team (Late st Contact Info) Description 11/18/2011 1:00 PM EDT Office Visit Hematology [place] [address] Saurabh Malhotra MD [facility] [place] [address] Toxin exposure (Primary Dx) Discharge Disposition: Home [...] primary care provider's office and also hereat [facility] [place]. The pathology report here states [...] with respiration. No tenderness. Normal bowel sounds PROGRESSIVE ASSEMBLER AND FITTER: Awake and alert. Moves all extremities. Gait [...] us by the patient himself and the silk screen operator of the chemicals. The main constituents of [...] referral to Dr Iraida Olivo in Dermatology, [facility] where skin/ patch testing could be done [...] 2:40 PM EDT Toxin exposure LEAD, VENOUS ([place]) Routine 11/18/2011 2 :40 PM EDT COMPREHENSIVE [...] mcg/dL CERNER MILLENNIUM Comment: Test Performed by: [facility] [address], [place], [place] [address] Lever Miller: Shari Willson, Ph.D. Blood specimen (specimen) 11/18/2011 2:40 PM EDT 11/18/2011 2:53 PM EDT Narrative Resulting Agency Comment Spec In Lab Saurabh Malhotra MD CHEMISTRY ORDERABL ES CERNER MILLENNIUM * (ABNORMAL) Comprehensive metabolic panel (non-fasting) (11/18/2011 2:40 PM EDT) [facility] Signature Glucose Lvl 76 60 - 199 mg/dL CERNER MILLENNIUM Comment:Diabetes: >=200 mg/d L plus symptoms BUN 9(L) 10 - 20 mg/dL CERNER MILLENNIUM Creatinine 0.61(L) 0.80 - 1.50 mg/dL CERNER MILLENNIUM Comment: Please note that the pediatric reference intervals supplied above were not validated at [facility]. Results from pediatric patients [...] Lab Saurabh Malhotra MD CHEMISTRY ORDERABL ES [facility] * (ABNORMAL) CBC (with Diff) (11/18/2011 2:40 PM EDT) WBC 7.3 4.0 - 10.0 x10(3)/mcL [facility] RBC 4.55(L) 4.63 - 6.08 x10(6)/mcL CERNER [...] substances documented in this encounter Care Teams Dielectric Press Operator Relationship Specialty Start Date End Date Awilda Pelayo APRN PCP - General 08/25/11 12/20/11 documented as of this encounter
--- OUTSIDE RECORDS SUMMARY | 2023-09-29 00:51 | XMS_ITS | Encounter Summary ---
Author Organization [facility] [place] [address] Care Team Providers Care Security Systems Engineer Name Role Phone Ashley Calixto MD Primary Care Provider [phone] Encounter Details Date Type Department Care Team (Late st Contact Info) Description 05/24/2012 Orders [place] [address] Lis Marsh MD [facility] [place] [address] Work related injury (Primary Dx); Right ankle [...] site documented in this encounter Care Teams Security Systems Engineer Relationship Specialty Start Date End Date Ashley Calixto MD [address] [place] [address] PCP - General 12/21/11 12/10/14 documented as of this encounter
--- OUTSIDE RECORDS SUMMARY | 2023-09-29 00:51 | XMS_ITS | Encounter Summary ---
Author Organization [facility] [place] [address] Care Team Providers Care Wrap Yarn Sorter Name Role Phone Ashley Calixto MD Primary Care Provider [phone] Reason for Visit * Reason Comments Left Knee Pain knee pain Encounter Details Date Type Department Care Team (Latest Contact Info) Description 10/03/2013 9:50 AM EDT Office [place] [address] Mihir Herrera MD [facility] [place] [address] Osteoarthritis of knee (Primary Dx) Discharge Disposition: [...] meniscectomy in [address] Fagan in [facility]. He has continued to have left knee [...] Metabolic Panel (non-fasting) (11/21/2013 11:50 AM EDT) [facility] Signature Glucose Lvl 159 60 - 199 mg/dL CERNER MILLENNIUM Comment:Diabetes: >=200 mg/d L plus symptoms BUN 9(L) 10 - 20 mg/dL CERNER MILLENNIUM Creatinine 0.71(L) 0.80 - 1.50 mg/dL CERNER MILLENNIUM Comment: Please note that the pediatric reference intervals supplied above were not validated at [facility]. Results from pediatric [...] the following links into your internet browser. [email or web address] Blood specimen (specimen) 11/21/2013 11:50 AM EDT 11/21/2013 12:00 PM EDT Narrative Resulting Agency Comment Spec In Lab Mihir Herrera MD CHEMISTRY ORDERABLES [facility]Y [facility]AL[facility] documented in this encounter Visit Diagnoses Diagnosis Osteoarthritis of knee- Primary Osteoarthrosis, unspecified whether generalized or localized, lower leg Osteoarthritis of knee Osteoarthrosis, unspecified whether generalized or localized, lower leg documented in this encounter Care Teams Wrap Yarn Sorter Relationship Specialty Start Date End Date Ashley Calixto MD [address] [place] [address] PCP - General 12/21/11 12/10/14 documented as of this encounter
--- OUTSIDE RECORDS SUMMARY | 2023-09-29 00:51 | XMS_ITS | Encounter Summary ---
Author Organization [facility] [place] [address] Care Team Providers Care Inspector Subassemblies Name Role Phone Ashley Calixto MD Primary Care Provider [phone] Reason for Visit * Reason Comments Left Knee Pain Encounter Details Date Type Department Care Team (Late st Contact Info) Description 01/31/2012 8:40 AM EST [place] [address] Lj Braden MD [facility] [place] [address] Knee pain; Degenerative arthritis of knee Discharge [...] NAME: Zack Langley AGE: 41 y.o. 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 He had persistent pain and swelling for months and then had an MRI of the knee showing a meniscal tear and underwent Menisectomy and MFC chondroplasty on 04/27/2011, by Dr. Fagan at [place]. He reports that the surgery helped a [...] which included, Standing alignment, AP, Lateral, Schuss, [place] images, which showed Impression 1. Medial deviation [...] mg documented in this encounter Care Teams Inspector Subassemblies Relationship Specialty Start Date End Date Ashley Calixto MD [facility] [address] [place] [address] PCP - General 12/21/11 12/10/14 documented as of this encounter
--- OUTSIDE RECORDS SUMMARY | 2023-09-29 00:51 | XMS_ITS | Encounter Summary ---
Author Organization [facility] [place] [address] Care Team Providers Care Sample Steamer Name Role Phone Ashley Calixto MD Primary Care Provider [phone] Encounter Details Date Type Department Care Team (Late st Contact Info) Description 09/18/2013 Orders [place] [address] Lj Braden MD [facility] [place] [address] Left knee pain (Primary Dx) Social History [...] leg documented in this encounter Care Teams Sample Steamer Relationship Specialty Start Date End Date Ashley Calixto MD [facility] [address] [place] [address] PCP - General 12/21/11 12/10/14 documented as of this encounter
--- OUTSIDE RECORDS SUMMARY | 2023-09-29 00:51 | XMS_ITS | Encounter Summary ---
Author Organization [facility] [address] Care Team Providers Care Kiln Worker Name Role Phone Ashley Calixto MD Primary Care Provider [phone] Encounter Details Date Type Department Care Team (Latest Contact Info) Description 06/27/2012 4:00 PM EDT Ancillary Appointment Dermatology at [address] [address] Geri Styles MD [facility] DR L[place] [address] Rash (Primary Dx) Social History Tobacco Use [...] supervision with direct supervision immediately available. (definition: [facility] Policy Statement on Graduate Medical Education, Supervision of Graduate Medical Trainees) I was immediately available to Dr. Styles for questions and discussion regarding this visit. I have reviewed her encounter note details and level of service. * Geri Styles MD - 06/26/2012 8:32 PM EDT DERMATOLOGY [place] NOTE 06/26/2012 Zack Mathis Shivam [id number] Geri Styles MD Chief Resident in Dermatology [...] Workup: ?? nbUVB - [facility] [place] [facility] [place] Pimozide or other (seroquel, zyprexa, etc) ?? Consult with primary provider and/or psychiatry for management of medications Geri Styles MD PGY-3 documented in this encounter Plan of Treatment Not on file documented as of this encounter Visit Diagnoses Diagnosis Rash- Primary Rash and other nonspecific skin eruption documented in this encounter Care Teams Kiln Worker Relationship Specialty Start Date End Date Ashley Calixto MD [address] [place] [address] PCP - General 12/21/11 12/10/14 documented as of this encounter
--- OUTSIDE RECORDS SUMMARY | 2023-09-29 00:51 | XMS_ITS | Encounter Summary ---
Author Organization [facility] [place] [address] Care Team Providers Care Model Photographers' Name Role Phone Ashley Calixto MD Primary Care Provider [phone] Reason for Visit * Reason Comments Follow-up Encounter Details Date Type Department Care Team (Late st Contact Info) Description 06/06/2013 3:00 PM EDT [place] [address] Patience Whitman APRN [facility] [place] [address] Chronic hepatitis C; Fatigue Social History Tobacco [...] this encounter Progress Notes * Patience Whitman, BULLET SLUGS INSPECTOR - 06/06/2013 3:22 PM EDT Subjective: Patient [...] white male who was seen today at [facility] in follow-up for hepatitis C. [...] ??? Mother 54 cancer ??? Father 56 [place] ??? Sister Alive age 61 ??? Sister [...] In Lab Subha Ross MD CHEMISTRY ORDERABLES [facility] * EKG 12 Lead (06/06/2013 4:01 PM EDT) Ventricular rate 93 BPM MUSE SYSTEM Atrial Rate 93 BPM MUSE SYSTEM P-R Interval 158 ms MUSE SYSTEM QRS Duration 94 ms MUSE SYSTEM Q-T Interval 356 ms MUSE SYSTEM QTC Calculated (Bezet) 442 ms MUSE SYSTEM Calculated P [place] 65 degrees MUSE SYSTEM Calculated R [place] -4 degrees MUSE SYSTEM Calculated T [place] 38 degrees MUSE SYSTEM INTERPRETATION Normal sinus rhythm Normal ECG No previous ECGs available I personally reviewed the tracing and edited the fellows interpretation Confirmed by fellow MD Froilan, Brock Rasmussen ([id number]) on 06/07/2013 11:44:21 AM Confirmed by MD MASOUD, CHIP ([id number]) on 06/07/2013 2:02:03 PM MUSE SYSTEM 06/06/2013 4:01 PM EDT 06/07/2013 2:02 PM EDT Subha Ross MD ECG ORDERABLES Baby World Language SYSTEM documented in this encounter Visit Diagnoses Diagnosis Chronic hepatitis C Chronic hepatitis C without mention of hepatic coma Fatigue Other malaise and fatigue documented in this encounter Care Teams Model Photographers' Relationship Specialty Start Date End Date Ashley Calixto MD [address] [place] [address] PCP - General 12/21/11 12/10/14 documented as of this encounter
--- OUTSIDE RECORDS SUMMARY | 2023-09-29 00:51 | XMS_ITS | Encounter Summary ---
Author Organization [facility] [place] [address] Care Team Providers Care Mortgage Loan Reviewer Name Role Phone Ashley Calixto MD Primary Care Provider [phone] Reason for Visit * Reason Onset Date Comments Follow-up 07/30/2013 Encounter Details Date Type Department Care Team (Late st Contact Info) Description 07/30/2013 Telephone [place] [address] [facility] [address] [place] [address] Follow-up Social History Tobacco Use Types Packs/Day [...] Date Ashley Calixto MD [address] [place] [address] PCP - General 12/21/11 12/10/14 documented as of this encounter
--- OUTSIDE RECORDS SUMMARY | 2023-09-29 00:51 | XMS_ITS | Encounter Summary ---
Author Organization [facility] [place] [address] Care Team Providers Care Adapted Physical Education Teacher Name Role Phone Ashley Calixto MD Primary Care Provider [phone] Reason for Visit * Reason Onset Date Comments Bumped Appointment 08/23/2013 Encounter Details Date Type Department Care Team (Late st Contact Info) Description 08/23/2013 Tele[place] [address] Lj Braden MD [facility] [place] [address] Bumped Appointment Social History Tobacco Use Types [...] on filedocumented in this encounter Care Teams Adapted Physical Education Teacher Relationship Specialty Start Date End Date Ashley Calixto MD [facility] [address] [facility] [address] [place] [address] PCP - General 12/21/11 12/10/14 documented as of this encounter
--- OUTSIDE RECORDS SUMMARY | 2023-09-29 00:51 | XMS_ITS | Encounter Summary ---
Author Organization [facility] [place] [address] Care Team Providers Care Field Naturalist Name Role Phone Ashley Calixto MD Primary Care Provider [phone] Encounter Details Date Type Department Care Team (Late st Contact Info) Description 08/15/2013 Telephone [place] [address] Patience Whitman AUTO CLUTCH SPECIALIST [facility] [place] [address] Social History Tobacco Use Types Packs/Day Years [...] spoke with pt's . I explained that [place] Medicaid is denying coverage of HCV treatment because bx 11/22/11 revealed only minimal scarring stage 0-1. He has gained nearly 30 lbs since hisbx in 2011. Explained that in next 6 months new HCV medications will be available. We could repeat labs and ultrasound in February. At that time we would have more information about [place] Medicaid coverage of treatment regimens. If needed, [...] documented in this encounter Care Teams Field Naturalist Relationship Specialty Start Date End Date Ashley Calixto MD [facility] [address] [place] [address] PCP - General 12/21/11 12/10/14 documented as of this encounter
--- OUTSIDE RECORDS SUMMARY | 2023-09-29 00:51 | XMS_ITS | Encounter Summary ---
Author Organization [facility] [place] [address] Care Team Providers Care Sas Analyst Name Role Phone Ashley Calixto MD Primary Care Provider [phone] Reason for Visit * Reason Onset Date Comments Bumped Appointment 08/27/2013 Encounter Details Date Type Department Care Team (Late st Contact Info) Description 08/27/2013 [place] [address] Lj Braden MD [facility] [place] [address] Bumped Appointment Social History Tobacco Use Types [...] on filedocumented in this encounter Care Teams Sas Analyst Relationship Specialty Start Date End Date sAhley Calixto MD [facility] [address] [facility] [address] [place] [address] PCP - General 12/21/11 12/10/14 documented as of this encounter
--- OUTSIDE RECORDS SUMMARY | 2023-09-29 00:51 | XMS_ITS | Encounter Summary ---
Author Organization [facility] Address [facility] [place] [address] Care Team Providers Care Sticker Machine Operator Name Role Phone Ashley Calixto MD Primary Care Provider [phone] Encounter Details Date Type Department Care Team (Latest Contact Info) Description 05/24/2012 1:42 PM EDT - 05/24/2012 11:59 PM EDT Hospital Encounter XRay at [address] [place] [address] Work related injury; Right ankle sprain Social [...] site documented in this encounter Care Teams Sticker Machine Operator Relationship Specialty Start Date End Date Ashley Calixto MD [address] [place] [address] PCP - General 12/21/11 12/10/14 documented as of this encounter
--- OUTSIDE RECORDS SUMMARY | 2023-09-29 00:51 | XMS_ITS | Encounter Summary ---
Author Organization [facility] [place] [address] Care Team Providers Care Hard Rock Miner Blasting Name Role Phone Ashley Calixto MD Primary Care Provider [phone] Reason for Visit * Reason Comments Follow-up Encounter Details Date Type Department Care Team (Late st Contact Info) Description 06/22/2012 3:05 PM EDT Follow-Up Dermatology at [facility] [address] [place] [address] Geri Styles MD [facility] DR LAKSHMI [place] [address] Rash (Primary Dx) Discharge Disposition: Home Social [...] or skin problems Social/Occupational History: 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 Will communicate our impressions to his buildings painter. Follow-up: RTC in 1 month. Will f/u by phone in 1 week and increase to 1 mg BID if tolerated. Instructed to call for questions or concerns. Geri Styles MD Resident in Dermatology [facility] Patient seen and evaluated with staff research editor: Ivon Higuera MD Section of Dermatology [facility] documented in this encounter Plan of Treatment Not on file documented as of this encounter Visit Diagnoses Diagnosis Rash- Primary Rash and other nonspecific skin eruption documented in this encounter Care Teams Hard Rock Miner Blasting Relationship Specialty Start Date End Date Ashley Calixto MD [address] [place] [address] PCP - General 12/21/11 12/10/14 documented as of this encounter
--- OUTSIDE RECORDS SUMMARY | 2023-09-29 00:52 | XMS_ITS | Encounter Summary ---
Author Organization [facility] [place] [address] Care Team Providers Care Canary Raiser Name Role Phone Awilda Prakash APRN Primary Care Provider [phone] Encounter Details Date Type Department Care Team (Late st Contact Info) Description 03/02/2011 Orders [place] [address] Lj Braden MD [facility] [place] [address] Social History Tobacco Use Types Packs/Day Years [...] PM EST) 03/02/2011 2:30 PM EST Narrative [facility] - 09/10/2013 10:34 AM EDT This is a non-reportable exam. Procedure Note Florencio Pereira - 09/10/2013 This is a non-reportable exam. Lj Braden MD IM FILM LIBRARY ORD ERABLES RAD [address] [place] [address] documented in this encounter Visit Diagnoses Not on filedocumented in this encounter Care Teams Canary Raiser Relationship Specialty Start Date End Date Awilda Prakash APRN PCP - General 08/25/11 12/20/11 documented as of this encounter
--- OUTSIDE RECORDS SUMMARY | 2023-09-29 00:52 | XMS_ITS | Encounter Summary ---
Author Organization [facility] [place] [address] Care Team Providers Care Scrap Drop Crane Operator Name Role Phone Awilda Prakash APRN Primary Care Provider [phone] Encounter Details Date Type Department Care Team (Late st Contact Info) Description 01/03/2011 Orders [place] [address] Lj Braden MD [facility] [place] [address] Social History Tobacco Use Types Packs/Day Years [...] MD IM FILM LIBRARY ORD ERABLES RAD [address] [place] [address] documented in this encounter Visit Diagnoses Not on filedocumented in this encounter Care Teams Scrap Drop Crane Operator Relationship Specialty Start Date End Date Awilda Prakash APRN PCP - General 08/25/11 12/20/11 documented as of this encounter
--- OUTSIDE RECORDS SUMMARY | 2023-09-29 00:52 | XMS_ITS | Encounter Summary ---
Author Organization [facility] Address [facility] [place] [address] Care Team Providers Care Steak Tenderizer Machine Name Role Phone Awilda Prakash APRN Primary Care Provider [phone] Encounter Details Date Type Department Care Team (Late st Contact Info) Description 11/07/2011 9:39 AM EDT Hospital Encounter XRay at [address] [place] [address] Knee pain Social History Tobacco Use Types [...] leg documented in this encounter Care Teams Steak Tenderizer Machine Relationship Specialty Start Date End Date Awilda Prakash APRN PCP - General 08/25/11 12/20/11 documented as of this encounter
--- OUTSIDE RECORDS SUMMARY | 2023-09-29 00:52 | XMS_ITS | Encounter Summary ---
Author Organization [facility] [place] [address] Care Team Providers Care Sustainable Landscape Architect Name Role Phone Awilda Prakash Mo KAPLAN Primary Care Provider [phone] Reason for Visit * Reason Comments GI Problem Encounter Details Date Type Department Care Team (Late st Contact Info) Description 09/02/2011 3:30 PM EDT Office [place] [address] Patience Whitman, [facility] [place] [address] Chronic hepatitis C without mention of hepatic [...] encounter Progress Notes * IvetMarcia ramsayPatience Shirley, COCOA BEAN ROASTER - 09/02/2011 6:09 PM EDT Subjective: Patient ID: Kaley Langley is a 41 y.o. male. HPI Mr. Langley is a pleasant 41 year old white male who was seen today at [facility] in consultation for hepatitis C which was recently diagnosed by his PCP about 2 weeks ago. He has risk factors for HCV dating back to to 1986 when he started using intranasal drugs. 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 He had 2 tattoos placed in snf in 1989 then in 1999. He has [...] and sober since 03/10. Hx IV drugs [id number]. Hx intranasal drugs [id number]. ??? 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 He injured left knee and underwent arthroscopy in February. Knee is not getting better. He continues to be out on worker's compensation.He has hx of IVDU [id number] 2012Hx of intranasal drug use 1986-1999Has 2 tattoos he received in snf in 1989 and 1999.Pierced ear in 1992 at home, shared needles.He sees psychiatrist, Dr. Baron, in [facility].He sees drug counselor Yanira Chahal [...] Final 11/11/2011 11:12 am) Patient Info ID: ?[id number] ?: ??[birth year] (41 yrs) Name: ?KALEY LANGLEY ?Visit Date: 11/11/2011 10:40 am Performed By Performed By: ?Yanira Everett RDMS Attending: ? Fermin WEBSTER, Arnulfo Sosa Referred By: ? TARAN CUENCA MD Service(s) Provided [facility] - Abdominal Complete Survey - [id number] ? [id number] Indications HCV Comparison None ----- Liver ----- [...] Final 11/11/2011 11:12 am) Patient Info ID: [id number] : [birth year] (41 yrs) Name: KALEY LANGLEY Visit Date: 11/11/2011 10:40 am Performed By Performed By: Yanira Everett [facility] Attending: Arnulfo Christensen MD Referred By: TARAN CUENCA MD Service(s) Provided [facility] - Abdominal Complete Survey - [phone] Indications HCV Comparison None ----- Liver ----- [...] coma documented in this encounter Care Teams Sustainable Landscape Architect Relationship Specialty Start Date End Date Awilda Prakash, ROSAURA PCP - General 08/25/11 12/20/11 documented as of this encounter
--- OUTSIDE RECORDS SUMMARY | 2023-09-29 00:52 | XMS_ITS | Encounter Summary ---
Author Organization [facility] Address [facility] [place] [address] Care Team Providers Care Invisible Braces Orthodontist Name Role Phone Awilda Prakash APRN Primary Care Provider [phone] Encounter Details Date Type Department Care Team (Late st Contact Info) Description 10/29/2011 External Results XRay at [address] [place] [address] Mihir Dee APRN [address] [place] [address] Social History Tobacco Use Types Packs/Day Years [...] on filedocumented in this encounter Care Teams Invisible Braces Orthodontist Relationship Specialty Start Date End Date Awilda Prakash, ROSAURA PCP - General 08/25/11 12/20/11 documented as of this encounter
--- OUTSIDE RECORDS SUMMARY | 2023-09-29 00:52 | XMS_ITS | Encounter Summary ---
Author Organization [facility] [place] [address] Care Team Providers Care Client Solutions Specialist Name Role Phone Awilda Prakash APRN Primary Care Provider Encounter Details Date Type Department Care Team (Late st Contact Info) Description 10/28/2011 Orders [place] [address] Lj Braden MD [facility] [place] [address] Social History Tobacco Use Types Packs/Day Years [...] on filedocumented in this encounter Care Teams Client Solutions Specialist Relationship Specialty Start Date End Date Awilda Prakash APRN PCP - General 08/25/11 12/20/11 documented as of this encounter
--- OUTSIDE RECORDS SUMMARY | 2023-09-29 00:52 | XMS_ITS | Encounter Summary ---
Author Organization [facility] Address [facility] [place] [address] Care Team Providers Care Heel Washer Stringing Machine Operator Name Role Phone Awilda rPakash APRN Primary Care Provider [phone] Encounter Details Date Type Department Care Team (Late st Contact Info) Description 11/07/2011 9:40 AM EDT - 11/07/2011 11:59 PM EDT Hospital Encounter XRay at [address] [place] [address] Social History Tobacco Use Types Packs/Day Years [...] on filedocumented in this encounter Care Teams Heel Washer Stringing Machine Operator Relationship Specialty Start Date End Date Awilda Prakash APRN PCP - General 08/25/11 12/20/11 documented as of this encounter
--- OUTSIDE RECORDS SUMMARY | 2023-09-29 00:52 | XMS_ITS | Encounter Summary ---
Author Organization [facility] Address [facility] [place] [address] Care Team Providers Care Gore Cutter Name Role Phone Awilda Prakash ROSAURA Primary Care Provider [phone] Reason for Visit * Reason Comments Dermatitis Encounter Details Date Type Department Care Team (Late st Contact Info) Description 10/28/2011 2:10 PM EDT Office [place] [address] Geri Trevino MD [facility] DR LAKSH[place] [address] Folliculitis (Primary Dx); Rash Discharge Disposition: Home [...] or skin problems Social/Occupational History: 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 Genitalia were not examined. Specific skin findings: 1. Multiple excoriated erythematous papules and nodules, many with heme crust Past biopsies reviewed from OSH: ([facility] Sparse perivacsular dermatitis with epidermal hyperplasia [...] concerns. Geri Trevino MD Resident in Dermatology [facility] Patient seen and evaluated with staff plumber cub: Mihir Zapata MD Section of Dermatology [facility] Copy of note faxed to PCP, Dr. [...] 4:18 PM EDT) Surgical Pathology Report ? [facility] ? Provider: ?? GERI TREVINO ? Pt. Name: ?? KALEY LANGLEY ? Acc #: ?[id number] ? Pt. ? Col Date: ?? 10/28/2011 [...] ? hodge macule, 0.2-cm in diameter. ? [facility] ? Provider: ?? GERI TREVINO ? Pt. Name: ?? KALEY LANGLEY ? Acc #: ?[id number] ? Pt. ? Col Date: ?? 10/28/2011 [...] MD PATHOLOGY/CYTOLOGY O RDERABLES Performing Organization Address [facility] Co de Phone Number RANDY KNAPPPura NaturalsLORENZA * Specimen to Pathology (NON-OR) (10/28/2011 2:36 PM EDT) AP Specimen 10/28/2011 2:36 PM EDT 10/28/2011 2:43 PM EDT Narrative CERNER MILLENNIUM - 10/28/2011 2:43 PM EDT Specimen requisition ordered. ??Separate Pathology report to follow Mihir Zapata MD PATHOLOGY/CYTOL OGY ORDERABLES Performing Organization Address [facility] Co de Phone Number RANDY KNAPPPura NaturalsLORENZA documented in this encounter Visit Diagnoses Diagnosis Folliculitis- Primary Other specified disease of hair and hair follicles Rash Rash and other nonspecific skin eruption documented in this encounter Care Teams Gore Cutter Relationship Specialty Start Date End Date Awilda Prakash APRN PCP - General 08/25/11 12/20/11 documented as of this encounter
--- OUTSIDE RECORDS SUMMARY | 2023-09-29 00:52 | XMS_ITS | Encounter Summary ---
Author Organization [facility] [place] [address] Care Team Providers Care Flight Test Mechanic Name Role Phone Awilda Prakash APRN Primary Care Provider [phone] Encounter Details Date Type Department Care Team (Late st Contact Info) Description 03/05/2010 Orders [place] [address] Lj Braden MD [facility] [place] [address] Social History Tobacco Use Types Packs/Day Years Used Date Smoking Tobacco: Never Assessed Sex and Gender Information Value Date Recorded Sex Assigned at Not on file Gender Identity Not on file Sexual Orientation Not on file documented as of this encounter Plan of Treatment Not on file documented as of this encounter Visit Diagnoses Not on filedocumented in this encounter Care Teams Flight Test Mechanic Relationship Specialty Start Date End Date Awilda Prakash APRN PCP - General 08/25/11 12/20/11 documented as of this encounter
--- OUTSIDE RECORDS SUMMARY | 2023-09-29 00:52 | XMS_ITS | Encounter Summary ---
[place] [address] Care Team Providers Care Shoe Designer Name Role Phone Awilda Prakash APRN Primary Care Provider [phone] Encounter Details Date Type Department Care Team (Late st Contact Info) Description 11/16/2011 [place] [address] Lu Nicole, RN Social History Tobacco Use [...] encounter Miscellaneous Notes * Telephone Encounter - uL Nicole RN - 11/16/2011 3:02 PM EDT [...] on filedocumented in this encounter Care Teams Shoe Designer Relationship Specialty Start Date End Date Awilda Prakash APRN PCP - General 08/25/11 12/20/11 documented as of this encounter
--- OUTSIDE RECORDS SUMMARY | 2023-09-29 00:52 | XMS_ITS | Encounter Summary ---
Author Organization [facility] [place] [address] Care Team Providers Care Transformer Repairer Name Role Phone Dwain, Yeyoalyce Mo KAPLAN Primary Care Provider [phone] Encounter Details Date Type Department Care Team (Late st Contact Info) Description 10/28/2011 Orders [place] [address] Lj Braden MD [facility] [place] [address] Knee pain (Primary Dx) Social History Tobacco [...] leg documented in this encounter Care Teams Transformer Repairer Relationship Specialty Start Date End Date Awilda Prakash, ROSAURA PCP - General 08/25/11 12/20/11 documented as of this encounter
--- OUTSIDE RECORDS SUMMARY | 2023-09-29 00:52 | XMS_ITS | Encounter Summary ---
Author Organization [facility] Address [facility] [place] [address] Care Team Providers Care Deck Lid Fitter Name Role Phone Awilda Prakash Mo KAPLAN Primary Care Provider [phone] Encounter Details Date Type Department Care Team (Late st Contact Info) Description 11/15/2011 [place] [address] Bridgett Gar MD [facility] [place] [address] Hep C w/o coma, chronic (Primary Dx) [...] Ultrasound guided liver biopsy. ? ACC#: ?? [id number] ?Indication ?? for Procedure: Hepatitis C, tissue [...] PROCEDURE NOTE Procedure: Ultrasound guided liverbiopsy. ACC#: [id number] Indication for Procedure: Hepatitis C, tissue sample [...] coma documented in this encounter Care Teams Deck Lid Fitter Relationship Specialty Start Date End Date Awilda Prakash APRN PCP - General 08/25/11 12/20/11 documented as of this encounter
--- OUTSIDE RECORDS SUMMARY | 2023-09-29 00:52 | XMS_ITS | Encounter Summary ---
[place] [address] Care Team Providers Care Door And Arrival Attendant Name Role Phone Awilda Prakash APRN Primary Care Provider [phone] Encounter Details Date Type Department Care Team (Latest Contact Info) Description 11/11/2011 10:39 AM EDT - 11/11/2011 11:59 PM EDT Hospital Encounter [place] [address] Chronic hepatitis C without mention of hepatic [...] Final 11/11/2011 11:12 am) Patient Info ID: ?[id number] ?: ??[birth year] (41 yrs) Name: ?ZACK LANGLEY ?Visit Date: 11/11/2011 10:40 am Performed By Performed By: ?Yanira Everett RDMS Attending: ? Fermin WEBSTER, Arnulfo Sosa Referred By: ? MENDEZ CUENCA MD Service(s) Provided [facility] - Abdominal Complete Survey - [id number] ? [id number] Indications HCV Comparison None ----- Liver ----- [...] Final 11/11/2011 11:12 am) Patient Info ID: [id number] : [birth year] (41 yrs) Name: ZACK LANGLEY Visit Date: 11/11/2011 10:40 am Performed By Performed By: Yanira Everett [facility] Attending: Arnulfo Christensen MD Referred By: MENDEZ CUENCA MD Service(s) Provided [facility] - Abdominal Complete Survey - [phone] Indications HCV Comparison None ----- Liver ----- [...] coma documented in this encounter Care Teams Door And Arrival Attendant Relationship Specialty Start Date End Date Awilda Prakash, ROSAURA PCP - General 08/25/11 12/20/11 documented as of this encounter
--- OUTSIDE RECORDS SUMMARY | 2023-09-29 00:52 | XMS_ITS | Encounter Summary ---
[place] [address] Care Team Providers Care Train Attendant Name Role Phone Awilda Prakash APRN Primary Care Provider [phone] Encounter Details Date Type Department Care Team (Late st Contact Info) Description 10/28/2011 External [place] [address] Provider, Scanning Social History Tobacco Use Types [...] on filedocumented in this encounter Care Teams Train Attendant Relationship Specialty Start Date End Date Awilda Prakash APRN PCP - General 08/25/11 12/20/11 documented as of this encounter
--- OUTSIDE RECORDS SUMMARY | 2023-09-29 00:52 | XMS_ITS | Encounter Summary ---
Author Organization [facility] [place] [address] Care Team Providers Care Eye Dropper Assembler Name Role Phone DwainAwilda Mo KAPLAN Primary Care Provider [phone] Reason for Visit * Reason Comments GI Problem Encounter Details Date Type Department Care Team (Late st Contact Info) Description 11/11/2011 1:00 PM EDT Follow-[place] [address] CLINIC, Patience Garzon [facility] [place] [address] Chronic hepatitis C without mention of hepatic [...] this encounter Progress Notes * Patience Whitman, PARA MACHINE OPERATOR - 11/11/2011 4:22 PM EDT Subjective: Patient [...] white male who was seen today at [facility] in follow-up for hepatitis C. He was only recently told that he had hepatitis C, but he tells me today that apparently he tested positive in 2007. He has risk factors for HCV dating back to to 1986 when hestarted using intranasal drugs. 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 He had 2 tattoos placed in senior care in 1989 then in 1999. He has [...] Primary documented in this encounter Care Teams Eye Dropper Assembler Relationship Specialty Start Date End Date Awilda Prakash APRN PCP - General 08/25/11 12/20/11 documented as of this encounter
--- OUTSIDE RECORDS SUMMARY | 2023-09-29 00:52 | XMS_ITS | Encounter Summary ---
Author Organization [facility] [place] [address] Care Team Providers Care Rod Pointer Name Role Phone Awilda Prakash Mo KAPLAN Primary Care Provider [phone] Reason for Referral * Physical Therapy (Routine) - Complete - Patient Will Schedule External Appt Specialty Diagnoses / Procedures Referred By Casey t Referred To Contact Physical Therapy Diagnoses Knee pain Lj Braden MD [facility] [place] [address] Referral ID Status Reason Start Date Expiration Date Visits Requested Visits Authorized [id number] Complete - Patient Will Schedule External Appt Evaluate and Treat 11/07/2011 05/05/2012 15 15 Reason for Visit * Reason Comments Left Knee Pain second opinion worke rs comp DOI 12/30/10 Encounter Details Date Type Department Care Team (Late st Contact Info) Description 11/07/2011 10:40 AM EDT Office [place] [address] Lj Braden MD [facility] [place] [address] Knee pain (Primary Dx) Discharge Disposition: Home [...] The knee cap tenderness has improved. 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
== END ==
PROVIDERS: PCP Family Medicine; Visit Provider Family Medicine
DX: F17.210 Nicotine dependence, cigarettes, uncomplicated (principal)
CPT/HCPCS: 71271

== ENCOUNTER 2024-02-26 21:27 | Outpatient (REF) | payer MEDICAID, SELFPAY ==
--- OUTSIDE RECORDS SUMMARY | 2024-02-26 21:29 | XMS_ITS | Encounter Summary ---
Author Organization [facility] [place] [address] Care Team Providers Care Rn Review Name Role Phone Wendi Singh MD Primary Care Provider [phone] Encounter Details Date Type Department Care Team (Late st Contact Info) Description 12/06/2018 External [place] [address] Vera Clark SLEEVE SETTER SAFETY STITCH [facility] [place] [address] Social History Tobacco Use Types Packs/Day Years [...] Type Associated Problems Recent Progress Patient-Stated? Author [facility] Medication Compliance and Understanding Patient Facing Action [...] (11/11/2018) Sodium 137 Potassium 4.4 Chloride 99 Carbon Dioxide 27 Blood Urea Nitrogen 13 Creatinine 0.87 Est Glomerular Filtration Rate >60 Glucose 166 Calcium 9.2 Protein, Total 7.6 Albumin 3.7 Bilirubin, Total 0.4 Alkaline Phosphatase 90 Aspartate Aminotransferase 12 Alanine Aminotransferase 23 Historical Provider EXTERNAL LAB ALEX HOLLIDAY documented in this encounter Visit Diagnoses Not on filedocumented in this encounter Care Teams Rn Review Relationship Specialty Start Date End Date Wendi Singh MD [address] [place] [address] PCP - General Family Medicine 12/11/14 documented as of this encounter
--- OUTSIDE RECORDS SUMMARY | 2024-02-26 21:29 | XMS_ITS | Encounter Summary ---
Author Organization [facility] Address [facility] [place] [address] Care Team Providers Care Distributor Sales Consultant Name Role Phone Wendi Singh MD Primary Care Provider [phone] Encounter Details Date Type Department Care Team (Latest Contact Info) Description 10/18/2018 9:25 AM EDT - 10/18/2018 11:59 PM EDT Hospital Encounter XRay at [address] [place] [address] Nahomi Arechiga MD Status post total left knee replacement Discharge [...] Type Associated Problems Recent Progress Patient-Stated? Author [facility] Home Medication Compliance and Understanding Patient Facing Action Plan Yaquelin Lau, [facility] Note: SVR12 through treatment with Mavyret. documented [...] appears unchanged from 2016 though increased from 2014. No periprosthetic fracture is identified. There is [...] component appears unchangedfrom 2016 though increased from 2014. No periprosthetic fracture is identified.There is a knee joint effusion, increased since 2016. IMPRESSION Knee joint effusion, increased since 2016. No interval change in theappearance of the left TKA, as described in greater detail above. Thank you for letting us participate in the care of this patient. Forquestions regarding this report, please contact the number below. Electronically signed by: Maryana Abraham [facility] ([phone]),at 10/18/2018 10:38 AM Nahomi Arechiga MD IMG DX ORDERABLES documented in this encounter Visit Diagnoses Diagnosis Status post total left knee replacement documented in this encounter Care Teams Distributor Sales Consultant Relationship Specialty Start Date End Date Wendi Singh MD [address] [place] [address] PCP - General Family Medicine 12/11/14 documented as of this encounter
--- OUTSIDE RECORDS SUMMARY | 2024-02-26 21:29 | XMS_ITS | Encounter Summary ---
[place] [address] Care Team Providers Care Brusher Hand Name Role Phone Wendi Singh MD Primary Care Provider [phone] Encounter Details Date Type Department Care Team (Late st Contact Info) Description 10/08/2018 Orders [place] [address] Nahomi Arechiga MD Status post total left knee replacement Social [...] Type Associated Problems Recent Progress Patient-Stated? Author [facility] Medication Compliance and Understanding Patient Facing Action Plan No Yaquelin Hutton, [facility] Note: SVR12 through treatment with [...] number below. Electronically signed by: Maryana [facility] ([phone]),at 10/18/2018 10:38 AM Nahomi Arechiga MD IMG DX ORDERABLES documented in this encounter Visit Diagnoses Diagnosis Status post total left knee replacement Status post total left knee replacement documented in this encounter Care Teams Brusher Hand Relationship Specialty Start Date End Date Wendi Singh MD [address] [place] [address] PCP - General Family Medicine 12/11/14 documented as of this encounter
--- OUTSIDE RECORDS SUMMARY | 2024-02-26 21:29 | XMS_ITS | Encounter Summary ---
[place] [address] Care Team Providers Care Lead Coater Name Role Phone Wendi Singh MD Primary Care Provider [phone] Encounter Details Date Type Department Care Team (Late st Contact Info) Description 04/12/2018 Abstract [place] [address] Toya Gongora, RN Social History Tobacco Use [...] Type Associated Problems Recent Progress Patient-Stated? Author [facility] Medication Compliance and Understanding Patient Facing Action Plan No Yaquelin Hutton, [facility] Note: SVR12 through treatment with Mavyret. documented as of this encounter Visit Diagnoses Not on filedocumented in this encounter Care Teams Lead Coater Relationship Specialty Start Date End Date Wendi Singh MD [address] [place] [address] PCP - General Family Medicine 12/11/14 documented as of this encounter
--- OUTSIDE RECORDS SUMMARY | 2024-02-26 21:29 | XMS_ITS | Encounter Summary ---
Author Organization [facility] Address [facility] [place] [address] Care Team Providers Care Machine Bander And Cellophaner Name Role Phone Wendi Singh MD Primary Care Provider [phone] Reason for Visit * Reason Comments Follow-up L TKA DOS 12/02/13 Encounter Details Date Type Department Care Team (Late st Contact Info) Description 10/18/2018 10:15 AM EDT Office [place] [address] [place], MARKO Bean [facility] DR [place] [address] Status post total left knee replacement Social [...] or periprosthetic complication. Questionnaire Responses: [facility] Surgical Postop Visit 10/18/2018 PROMIS-10 General Health [...] Facing Action Plan No Yaquelin Hutton, [facility] Note: SVR12 through treatment with Mavyret. documented as of this encounter Visit Diagnoses Diagnosis Status post total left knee replacement documented in this encounter Care Teams Machine Bander And Cellophaner Relationship Specialty Start Date End Date Wendi Singh MD [address] [place] [address] PCP - General Family Medicine 12/11/14 documented as of this encounter
--- OUTSIDE RECORDS SUMMARY | 2024-02-26 21:29 | XMS_ITS | Encounter Summary ---
Author Organization [facility] [place] [address] Care Team Providers Care Flange Machine Operator Name Role Phone Wendi Singh MD Primary Care Provider [phone] Encounter Details Date Type Department Care Team (Late st Contact Info) Description 02/12/2019 External Results [place] [address] Vera Clark FIELD EDUCATION DIRECTOR [facility] [place] [address] Social History Tobacco Use Types Packs/Day Years [...] Type Associated Problems Recent Progress Patient-Stated? Author [facility] Medication Compliance and Understanding Patient Facing Action Plan Yaquelin Lau, [facility] Note: SVR12 through treatment with Mavyret. [...] on filedocumented in this encounter Care Teams Flange Machine Operator Relationship Specialty Start Date End Date Wendi Singh MD [address] [place] [address] PCP - General Family Medicine 12/11/14 documented as of this encounter
--- OUTSIDE RECORDS SUMMARY | 2024-02-26 21:29 | XMS_ITS | Encounter Summary ---
Author Organization [facility] [place] [address] Care Team Providers Care Nutrition Tech Name Role Phone Wendi Singh MD Primary Care Provider [phone] Encounter Details Date Type Department Care Team (Late st Contact Info) Description 04/12/2018 External Results [place] [address] Vera Clark PVC MONITOR [facility] [place] [address] Social History Tobacco Use Types Packs/Day Years [...] Type Associated Problems Recent Progress Patient-Stated? Author [facility] Medication Compliance and Understanding Patient Facing Action Plan Yaquelin Lau, [facility] Note: SVR12 through [...] on filedocumented in this encounter Care Teams Nutrition Tech Relationship Specialty Start Date End Date Wendi Singh MD [address] [place] [address] PCP - General Family Medicine 12/11/14 documented as of this encounter
--- OUTSIDE RECORDS SUMMARY | 2024-02-26 21:29 | XMS_ITS | Encounter Summary ---
Author Organization [facility] [place] [address] Care Team Providers Care Planning Management It Specialist Name Role Phone Wendi Singh MD Primary Care Provider [phone] Encounter Details Date Type Department Care Team (Late st Contact Info) Description 04/11/2018 External Results [place] [address] Vera Clark FELT DYEING MACHINE TENDER [facility] [place] [address] Social History Tobacco Use Types Packs/Day Years [...] Type Associated Problems Recent Progress Patient-Stated? Author [facility] Medication Compliance and Understanding Patient Facing Action Plan Yaquelin Lau, [facility] Note: SVR12 through treatment with Mavyret. documented as of this encounter Procedures Procedure Name Priority Date/Time Associated Diagnosis Comments EXTERNAL LAB CBC CMP THYROID RESULTS PANEL Routine 04/06/2018 documented in this encounter Results * CBC / CMP / Thyroid External Results (04/06/2018) Sodium 137 Potassium 4.4 Chloride 102 Carbon Dioxide 26 Blood Urea Nitrogen 10 Creatinine 0.86 Est Glomerular Filtration Rate >60 Glucose 147 Calcium 8.9 Protein, Total 7.8 Albumin 3.5 Bilirubin, Total 0.2 Alkaline Phosphatase 82 Aspartate Aminotransferase 14 Alanine Aminotransferase 19 Historical Provider MD EXTERNAL LAB ALEX HOLLIDAY documented in this encounter Visit Diagnoses Not on filedocumented in this encounter Care Teams Planning Management It Specialist Relationship Specialty Start Date End Date Wendi Singh MD [address] [place] [address] PCP - General Family Medicine 12/11/14 documented as of this encounter
--- OUTSIDE RECORDS SUMMARY | 2024-02-26 21:29 | XMS_ITS | Clinical Summary ---
Author Organization [facility] Address [facility] [place] [address] Care Team Providers Care Fws Faculty Assistant Name Role Phone Wendi Singh MD Primary Care Provider [phone] Allergies Active Allergy Reactions Criticality Noted Date [...] Brother 8 Brother 9 Father (Age 56) NE Mother (Age 54) cancer Sister 1 Alive [...] Exam 1978 DM Urine Microalbumin yearly 1978 Tetanus/Diphtheria/Pertussis Vaccines (1 - Tdap) 07/23/1987 DM Hemoglobin A1c 03/06/2014 12/04/2013, 12/04/2013 Zoster vaccine (1 of 2) 2018 DM Creatinine yearly 11/12/2019 11/11/2018, 11/11/2018, 04/06/2018, Additional history exists Covid-19 Vaccine (1 - 2023-2 5 season) 2023 Influenza (Flu) vaccine (1 o f 1 - Influenza standard series) 10/29/2023 HIV screen Completed 03/18/2013 Goals Goal Patient Goal Type Associated Problems Recent Progress Patient-Stated? Author [facility] Medication Compliance and Understanding Patient Facing Action Plan No Yaquelin Hutton, [facility] Note: SVR12 through treatment with Mavyret. Medical Devices Implanted Type Area Merchandise Handler Device Identifier Shelf Expiration Date Model / Serial / Lot Cement,Bne,Cmw 1,Gnta,40gm ([id number]) - [id number] Implanted:Qty: 1 on 12/02/2013 by Mihir Herrera MD at [facility] IMPLANTS Left: Knee DO NOT USE Depuy Copy Manager - 3527 05/27/2016 0 / / [id number] Felipa Lee,Rp ,Tib,Base,Sz7 ([id number]) (Autoreq) - [id number] Implanted:Qty: 1 on 12/02/2013 by Mihir Herrera MD at [facility] IMPLANTS Left: Knee DO NOT USE Depuy Copy Manager - 3527 04/26/2022 7 / / [id number] InserFelipa,P s,Fem,Sz7,Lt ([id number]) (Autoreq) - [id number] Implanted:Qty: 1 on 12/02/2013 by Mihir Herrera MD at [facility] IMPLANTS Left: Knee DO NOT USE Depuy Copy Manager - 3527 06/27/2023 1503-12-07 / [id number] Felipa Almanza M dl,Augustina,41mm ([id number]) (Autoreq) - [id number] Implanted:Qty: 1 on 12/02/2013 by Mihir Herrera MD at [facility] IMPLANTS Left: Knee DO NOT USE Depuy Copy Manager - 3527 08/26/2016 1517-11-30 / [id number] Felipa Roy P s,Rp,Sz7,7mm ([id number]) (Autoreq) - [id number] Implanted:Qty: 1 on 12/02/2013 by Mihir Herrera MD at [facility] IMPLANTS Left: Knee DO NOT USE Depuy Copy Manager - 3527 06/26/2018 / [id number] Procedures Procedure Name Priority Date/Time Associated Diagnosis Comments EXTERNAL LAB CBC CMP THYROID RESULTS PANEL Routine 11/11/2018 HEMOGLOBIN A1C Routine 12/04/2013 3:54 AM EDT HIV SCREEN, 4TH GENERATION ([facility]APD/[place]) Routine 03/18/2013 9:31 AM EST Chronic hepatitis [...] 23 Historical Provider EXTERNAL LAB ALEX HOLLIDAY * (ABNORMAL) Hemoglobin A1c (12/04/2013 3:54 AM EDT) Hemoglobin A1c 6.7(H) <=5.6 % NICOLAS Bradley [facility] Comment: Reference Range: 4.3 - 5.6% [...] Diabetes Care 2013; 36: Suppl. 1, S67-74 Estimated Average Glucose 146 mg/dL RANDY [facility] Comment: eAG equivalents for HbA1c percentages: HbA1c(%) ?eAG(mg/dL) 6.0 ?126 6.5 ?140 7.0 ?154 7.5 ?169 8.0 ?183 8.5 ?197 9.0 ?212 9.5 ?226 10.0 ? 240 Limitations: The eAG calculation has not been validated on women, individuals below 18 years old and above 70 years old, and individuals with hemoglobinopathies. Additional resources are available on the ADA website: http://Miyowal.com/DHMCadacalc Blake KENNEY, Charley J, Gian R, et al. ??Translating the A1C assay into estimated average glucose values. ??Diabetes Care 2008:31(8):2355-6186. Blood specimen (specimen) 12/04/2013 3:54 AM EDT 12/04/2013 10:05 AM EDT Narrative Resulting Agency Comment Spec In Lab Mihir Herrera MD [facility] * HIV (03/18/2013 9:31 AM EST) HIV 1/2 Ab Negative Negative RANDY MORALES Blood specimen (specimen) 03/18/2013 9:31 AM EST 03/18/2013 9:38 AM EST Narrative Resulting Agency Comment Spec In Lab Mendez Peralta MD CHEMISTRY ORDERABLE S RANDY MORALES from Last 3 Months or Most Recently Relevant to Health Maintenance Advance Directives Documents on File Type Date Recorded Patient Programmer Analyst Consultant Expl anation Advance Directives and Livin g Will 07/17/2015 10:05 AM 09/30/13 * Full Code (Latest Code Status on File) Date Activated Date Inactivated Comments 12/02/2013 10:13 AM 12/05/2013 7:37 PM Question Answer Comments Does patient have decision m aking capacity? Yes, order is based on Patient wishes. Care Teams Fws Faculty Assistant Relationship Specialty Start Date End Date Wendi Singh MD [address] [place] [address] PCP - General Family Medicine 12/11/14
--- OUTSIDE RECORDS SUMMARY | 2024-02-26 21:30 | XMS_ITS | Encounter Summary ---
[place] [address] Care Team Providers Care Director Of Government Sales Name Role Phone Wendi Singh MD Primary Care Provider [phone] Encounter Details Date Type Department Care Team (Latest Contact Info) Description 06/15/2015 11:00 AM EDT Laboratory Appointment Lab [address] [place] [address] Chronic hepatitis C without hepatic coma Social [...] C without hepatic coma COMPREHENSIVE METABOLIC PANEL Routine 06/15/2015 11:35 AM EDT Chronic hepatitis C without hepatic coma documented in this encounter Results * (ABNORMAL) Differential, Automated (06/15/2015 11:35 AM EDT) Neutrophil % 44.1 % [facility] Neutrophil Absolute 4.13 1.50 - 6.30 x10(3)/mc L [facility] Lymph % 44.3 % [facility] Lymphocytes Abs 4.2(H) 1.0 - 3.6 x10(3)/mc L [facility] Monocyte % 6.6 % [facility] Monocyte Abs 0.6 0.2 - 1.0 x10(3)/mc L [facility] Eos % 4.3 % [facility] Eosinophils Abs 0.4 0.0 - 0.5 x10(3)/mc L [facility] Basophil % 0.6 % [facility] Baso Absolute 0.1 0.0 - 0.2 x10(3)/mc L [facility] Immature Gran % 0.10 % [facility] Comment: Immature granulocytes(IG's)percentage and absolute count will include metamyelocytes, myelocytes, and promyelocytes. Blood smears from CBCs yielding IG's will be scanned manually for concordance. If this scan disagrees with the automated IG or if promyelocytes are noted, a manual differential will be performed. Immature Gran Absolute 0.01 0.00 - 0.05 x10(3)/mc L [facility] Blood specimen (specimen) 06/15/2015 11:35 AM EDT 06/15/2015 11:46 AM EDT Narrative Resulting Agency Comment Spec In Lab Natasha Garcia MD HEMATOLOGY ORDERABLE S [facility] [place] [address] * Hemogram (06/15/2015 11:35 AM EDT) White Blood Cell 9.4 4.0 - 10.0 x10(3)/[facility] Red Blood Cell 4.98 4.63 - 6.08 x10(6)/[facility] Hemoglobin 14.7 13.7 - 17.5 gm/dL [facility] Hematocrit 41.9 40.0 - 51.0 % [facility] Mean Cell Volume 84.1 79.0 - 92.0 fL [facility] Mean Cell Hemoglobin 29.5 25.6 - 32.2 pg [facility] Mean Cell Hemoglobin Concentration 35.1 32.0 - 36.5 gm/dL [facility] Platelet 227 145 - 370 x10(3)/[facility] RDW Standard Deviation 38.9 35.0 - 46.0 fL [facility] RDW coefficient of variation 12.9 10.9 - 14.4 % [facility] Mean Platelet Volume 11.9 9.0 - 12.0 fL [facility] Blood specimen (specimen) 06/15/2015 11:35 AM EDT 06/15/2015 11:46 AM EDT Narrative Resulting Agency Comment Spec In Lab Natasha Garcia MD HEMATOLOGY ORDERABLE S [facility] [place] [address] * (ABNORMAL) Liver Fibrosis Panel (06/15/2015 11:35 AM EDT) Liver Fibrosis Panel FLEXITEST 3(A) [facility] Comment: FLEXITEST 3 TESTS RESULTS--------UNITS--REF. [...] 0.61-0.62 ?A2-A3 0.63-1.00 ?A3 ? severe activity Ctkxx-4-Vmnvybjczjptp ? 144 ?mg/dL ??106-279 Haptoglobin ? 225 H ?mg/dL ??43-212 Apolipoprotein A1 ? 134 ?mg/dL ??94-176 Total Bilirubin ? 0.3 ?mg/dL ??0.2-1.2 GGT ?27 ?U/L ??3- 95 ALT ?40 ?U/L ??9- 46 Reference ID ?[id number] Footnote ?SEE NOTE The reliability of results is dependent on compliance with the preanalytical and analytical conditions recommended by [employer]. The tests have to be deferred for: [...] The performance characteristics have been determined by [employer], [place]. It has not been cleared or approved by the U.S. Food and Drug Administration. Performance characteristics refer to the analytical performance of the test. [employer], the associated logo, [employer] and all associated [employer] lopez are the registered trademarks of [employer]. All third constitution party lopez - (R) and (TM) - are the property of their respective owners. (C) 1381-1079 [employer]. All rights reserved. Test performed by: ? [employer] [facility] ? [address] [facility] [address] ? [place] [address] ? Phone: ??[phone] Director: ??Yordan Ocampo M.D. Test Reported by [facility], [employer], [address] [place], [place] Jacob Michelle M.D., Ph.D., Director of Laboratories , [facility] [id number] Blood specimen (specimen) 06/15/2015 11:35 AM EDT 06/15/2015 1:37 PM EDT Narrative Resulting Agency Comment Spec In Lab Natasha Garcia MD LAB SEND OUT ORDERAB LES Performing Organization Address [facility] Co de Phone Number [facility] [place] [address] * Hepatitis B Surface Antigen (06/15/2015 11:35 AM EDT) Hepatitis B Surface Antigen Negative Negative [facility] Blood specimen (specimen) 06/15/2015 11:35 AM EDT 06/15/2015 11:46 AM EDT Narrative Resulting Agency Comment Spec In Lab Natasha Garcia MD CHEMISTRY ORDERABLES Performing Organization Address [facility] de Phone Number [facility] [place] [address] * Hepatitis B Surface Antibody (06/15/2015 11:35 AM EDT) Hepatitis B Surface Antibody Positive [facility] Comment: Expected Results: Vaccinated: Positive [...] Garcia MD CHEMISTRY ORDERABLES Performing Organization Address [facility] de Phone Number [facility] [place] [address] * (ABNORMAL) Hepatitis A Antibody, Total (06/15/2015 11:35 AM EDT) Hepatitis A ANTIBODY, TOTAL Positive(A ) Negative [facility] Blood specimen (specimen) 06/15/2015 11:35 AM EDT 06/15/2015 11:46 AM EDT Narrative Resulting Agency Comment Spec In Lab Natasha Garcia MD CHEMISTRY ORDERABLES Performing Organization Address City/[facility] Co de Phone Number [facility] [place] [address] * Hepatitis C RNA, quantitative, PCR (06/15/2015 11:35 AM EDT) Pathologist [facility] [place] HCV Viral Load 910,856 IU/mL [facility] HCV Viral Load Result: [id number] IU/mL Indication for Study: Hepatitis C Infection Analysis: A quantitiative real time reverse transcriptase PCR assay was performed on extracted viral RNA for the purpose of quantification. Sample: plasma (1 mL minimum volume) Method: Devonte Jose TaqMAN 48 HCV Linear Range: 15 IU/mL - 100,000,000IU/mL (95% CI) Note: This assay is being performed in the [facility] Molecular Pathology Laboratory. Bertin Beach, Ph.D. Director, Molecular Pathology [facility] Comment: [VERIFIED DATE]06.18.15 Verified By:Mary Murphy (Electronic Signature) Blood specimen (specimen) 06/15/2015 11:35 AM EDT 06/16/2015 8:51 AM EDT Narrative Resulting Agency Comment Spec In Lab Natasha Garcia MD MOLECULAR ORDERABLES Performing Organization Address [facility] Co de Phone Number [facility] [place] [address] * Prothrombin Time (06/15/2015 11:35 AM EDT) [facility] Prothrombin Time 12.6 12.0 - 15.0 sec [facility] Comment: An INR <2.0 indicates adequate procoagulant activity for hemostasis in most patients without underlying bleeding disorders, though the INR may not adequately reflect hemostatic capacity in patients with liver disease and synthetic impairment. The recommended target INR range for therapeutic anticoagulation is 2.0 ? 3.0 for most applications, though lower and higher ranges may be appropriate depending on clinical circumstances. International Normalization Ratio 0.9 0.9 - 1.1 [facility] Blood specimen (specimen) 06/15/2015 11:35 AM EDT 06/15/2015 11:46 AM EDT Narrative Resulting Agency Comment Spec In Lab Natasha Garcia MD HEMATOLOGY ORDERABLE S [facility] [place] [address] * (ABNORMAL) Comprehensive metabolic panel (non-fasting) (06/15/2015 11:35 AM EDT) Glucose 97 65 - 199 mg/dL [facility] Comment:Diabetes: >=200 mg/d L plus symptoms Blood Urea Nitrogen 8(L) 10 - 20 mg/dL [facility] Creatinine 0.78(L) 0.80 - 1.50 mg/dL [facility] Comment: Please note that the pediatric reference intervals supplied above were not validated at [facility]. Results from pediatric patients should be interpreted in conjunction to the patient's age, height and muscle mass. Sodium 136 135 - 145 mmol/L [facility] Potassium 4.4 3.5 - 5.0 mmol/L [facility] Comment: Please note: ??Patients with WBC >100,000 may have falsely elevated Potassium levels. ??For accurate Potassium quantification in these patients send serum separator tube (gold top) for subsequent determinations. ??Contact the Clinical Chemistry Laboratory if there are any questions. Chloride 98 98 - 107 mmol/L [facility] Carbon Dioxide 23 22 - 31 mmol/L [facility] Anion Gap 15 5 - 15 mmol/L [facility] Calcium 9.3 8.5 - 10.5 mg/dL [facility] Protein, Total 7.6 6.1 - 8.0 gm/dL [facility] Albumin 4.3 3.2 - 5.2 gm/dL [facility] Aspartate Aminotransferase 23 0 - 39 unit/L [facility] Alanine Aminotransferase 42 0 - 55 unit/L [facility] Alkaline Phosphatase 69 40 - 120 unit/L [facility] Bilirubin, Total 0.2 0.2 - 1.3 mg/dL [facility] Bilirubin, Direct <0.1 0.0 - 0.3 mg/dL [facility] Est Glomerular Filtration Rate >60 >=60 [facility] Comment: This estimated GFR (eGFR) [...] the following links into your internet browser. [email or web address] Blood specimen (specimen) 06/15/2015 11:35 AM EDT 06/15/2015 11:46 AM EDT Narrative Resulting Agency Comment Spec In Lab Natasha Garcia MD CHEMISTRY ORDERABLES Performing Organization Address City/State/[facility] Co de Phone Number [facility] [place] [phone] documented in this encounter Visit Diagnoses Diagnosis Chronic hepatitis C without hepatic coma documented in this encounter Care Teams Director Of Government Sales Relationship Specialty Start Date End Date Wendi Singh MD [address] [place] [address] PCP - General Family Medicine 12/11/14 documented as of this encounter
--- OUTSIDE RECORDS SUMMARY | 2024-02-26 21:30 | XMS_ITS | Encounter Summary ---
Author Organization [facility] [place] [address] Care Team Providers Care Revenue Audit Clerk Name Role Phone Ashley Calixto MD Primary Care Provider [phone] Reason for Visit * Reason Onset Date Comments New Medication Request 12/25/2013 Encounter Details Date Type Department Care Team (Late st Contact Info) Description 12/25/2013 Telephone [place] [address] Mihir Herrera MD [facility] [place] [address] New Medication Request Social History Tobacco Use [...] [facility] so will need to correct it with [...] the prescription recommendedfrom [facility] note from [facility]. It reads: This week 20mg 4x per day for 6 days. Next week is suppose to be the 10 mg 4x per day. Would you like this called into a pharmacy? If so, which one? Eder Villar[facility] Best number to reach person calling? ANA LUISA IS AT WORK, BUT REQUESTED THAT WE CALL ZACK DIRECTLY [phone] The nurse will call you when your prescription is ready, please allow up to 72 hrs for processing. documented in this encounter Plan of Treatment Not on file documented as of this encounter Visit Diagnoses Diagnosis Knee joint replacement by other means- Primary documented in this encounter Care Teams Revenue Audit Clerk Relationship Specialty Start Date End Date Ashley Calixto MD [address] [place] [address] PCP - General 12/21/11 12/10/14 documented as of this encounter
--- OUTSIDE RECORDS SUMMARY | 2024-02-26 21:30 | XMS_ITS | Encounter Summary ---
Author Organization [facility] [place] [address] Care Team Providers Care Cell Biologist Name Role Phone Ashley Calixto MD Primary Care Provider [phone] Reason for Referral * Occupational Therapy (Routine) - Closed Specialty Diagnoses / Procedures Referred By Casey reyes Referred To Contact Occupational Therapy Diagnoses S/P total knee arthroplasty, left Mihir Herrera MD [facility] [place] [address] [facility] [place] [address] Referral ID Status Reason Start Date Expiration Date V isits Requested Visits Authorized [id number] Closed Evaluate and Treat 04/04/2014 04/04/2015 1 1 Reason for Visit * Reason Onset Date Comments Other 04/04/2014 Encounter Details Date Type Department Care Team (Late st Contact Info) Description 04/04/2014 [place] [address] Mihir Herrera MD [facility] [place] [address] Other Social History Tobacco Use [...] We received a work capabilities form from [employer] to complete for this patient. In order [...] Primary documented in this encounter Care Teams Cell Biologist Relationship Specialty Start Date End Date Ashley Calixto MD [address] [place] [address] PCP - General 12/21/11 12/10/14 documented as of this encounter
--- OUTSIDE RECORDS SUMMARY | 2024-02-26 21:30 | XMS_ITS | Encounter Summary ---
Author Organization [facility] Address [facility] [place] [address] Care Team Providers Care Autocutter Name Role Phone Wendi Singh MD Primary Care Provider [phone] Encounter Details Date Type Department Care Team (Latest Contact Info) Description 12/11/2014 2:10 PM EDT - 12/11/2014 11:59 PM EDT Hospital Encounter XRay at [address] [place] [address] Mihir Herrera MD [facility] ORTHOPAEDIC [place] [address] Status post left knee replacement Discharge Disposition: [...] replacement documented in this encounter Care Teams Autocutter Relationship Specialty Start Date End Date Wendi Singh MD [address] [place] [address] PCP - General Family Medicine 12/11/14 documented as of this encounter
--- OUTSIDE RECORDS SUMMARY | 2024-02-26 21:30 | XMS_ITS | Encounter Summary ---
Author Organization [facility] Address [facility] [place] [address] Care Team Providers Care Creative Developer Name Role Phone Wendi Singh MD Primary Care Provider [phone] Encounter Details Date Type Department Care Team (Latest Contact Info) Description 12/25/2015 3:48 PM EDT - 12/25/2015 11:59 PM EDT Hospital Encounter XRay at [address] [place] [address] Mihir Herrera MD [facility] [place] [address] Presence of left artificial knee joint Discharge [...] means documented in this encounter Care Teams Creative Developer Relationship Specialty Start Date End Date Wendi Singh MD [address] [place] [address] PCP - General Family Medicine 12/11/14 documented as of this encounter
--- OUTSIDE RECORDS SUMMARY | 2024-02-26 21:30 | XMS_ITS | Encounter Summary ---
[place] [address] Care Team Providers Care Radar Mechanic Name Role Phone Ashley Calixto MD Primary Care Provider [phone] Encounter Details Date Type Department Care Team (Late st Contact Info) Description 02/10/2014 Telephone [place] [address] Hoda Asher Social History Tobacco Use Types [...] 04:15PM [facility] final letter 02/06/2014 02:48PM [facility] f/u with Marcia Whitman w/labs and US documented in this encounter Plan of Treatment Not on file documented as of this encounter Visit Diagnoses Not on filedocumented in this encounter Care Teams Radar Mechanic Relationship Specialty Start Date End Date Ashley Calixto MD [address] [facility] [address] [place] [address] PCP - General 12/21/11 12/10/14 documented as of this encounter
--- OUTSIDE RECORDS SUMMARY | 2024-02-26 21:30 | XMS_ITS | Encounter Summary ---
Author Organization [facility] [place] [address] Care Team Providers Care Floor Worker Name Role Phone Ashley Calixto MD Primary Care Provider [phone] Reason for Visit * Reason Onset Date Comments Post Procedure Call 12/19/2013 Encounter Details Date Type Department Care Team (Late st Contact Info) Description 12/19/2013 [place] [address] Mihir Herrera MD [facility] [place] [address] Post Procedure Call Social History Tobacco Use [...] question Best number to reach you # [phone] Kathya The nurse continuously monitors all messages and will return your call before the end of the day. The nurse may need to consult the surgeon about your question which may delay the return call by 24hrs. documented in this encounter Plan of Treatment Not on file documented as of this encounter Visit Diagnoses Not on filedocumented in this encounter Care Teams Floor Worker Relationship Specialty Start Date End Date Ashley Calixto MD [address] [place] [address] PCP - General 12/21/11 12/10/14 documented as of this encounter
--- OUTSIDE RECORDS SUMMARY | 2024-02-26 21:30 | XMS_ITS | Encounter Summary ---
Author Organization [facility] [place] [address] Care Team Providers Care Wardrobe Manager Name Role Phone Wendi Singh MD Primary Care Provider [phone] Encounter Details Date Type Department Care Team (Late st Contact Info) Description 03/05/2018 External Results [place] [address] Vera Clark RUBBER GOODS SUPERVISOR [facility] [place] [address] Social History Tobacco Use Types Packs/Day Years [...] Type Associated Problems Recent Progress Patient-Stated? Author [facility] Medication Compliance and Understanding Patient Facing Action Plan Yaquelin Lau, [facility] Note: [id number] through treatment with Mavyret. documented as of this encounter Procedures Procedure Name Priority Date/Time Associated Diagnosis Comments EXTERNAL LAB CBC CMP THYROID RESULTS PANEL Routine 03/04/2018 documented in this encounter Results * CBC / CMP / Thyroid External Results (03/04/2018) Sodium 137 Potassium 4.3 Chloride 101 Carbon Dioxide 29 Blood Urea Nitrogen 12 Creatinine 0.86 Est Glomerular Filtration Rate >60 Glucose 123 Calcium 9.4 Protein, Total 7.6 Albumin 3.7 Bilirubin, Total 0.3 Alkaline Phosphatase 93 Aspartate Aminotransferase 16 Alanine Aminotransferase 20 Historical Provider MD EXTERNAL LAB ALEX [facility] documented in this encounter Visit Diagnoses Not on filedocumented in this encounter Care Teams Wardrobe Manager Relationship Specialty Start Date End Date Wendi Singh MD [address] [place] [address] PCP - General Family Medicine 12/11/14 documented as of this encounter
--- OUTSIDE RECORDS SUMMARY | 2024-02-26 21:30 | XMS_ITS | Encounter Summary ---
Author Organization [facility] [place] [address] Care Team Providers Care Setup Technician Name Role Phone Ashley Calixto MD Primary Care Provider [phone] Reason for Visit * Reason Comments Aftercare Of Tjr L TKA 12/02/13 Encounter Details Date Type Department Care Team (Late st Contact Info) Description 08/07/2014 3:45 PM EDT Office [place] [address] Mihir Herrera MD [facility] [place] [address] Status post left knee replacement (Primary Dx) [...] replacement documented in this encounter Care Teams Setup Technician Relationship Specialty Start Date End Date Ashley Calixto MD [address] [place] [address] PCP - General 12/21/11 12/10/14 documented as of this encounter
--- OUTSIDE RECORDS SUMMARY | 2024-02-26 21:30 | XMS_ITS | Encounter Summary ---
Author Organization [facility] [place] [address] Care Team Providers Care Court Attendant Name Role Phone Wendi Singh MD Primary Care Provider [phone] Reason for Visit * Reason Comments Right Knee Pain R TKA 12/02/14 Encounter Details Date Type Department Care Team (Late st Contact Info) Description 12/11/2014 3:50 PM EDT Office [place] [address] Mihir Herrera MD [facility] [address] [place] [address] Status post total left knee replacement Social [...] replacement documented in this encounter Care Teams Court Attendant Relationship Specialty Start Date End Date Wendi Singh MD [address] [place] [address] PCP - General Family Medicine 12/11/14 documented as of this encounter
--- OUTSIDE RECORDS SUMMARY | 2024-02-26 21:30 | XMS_ITS | Encounter Summary ---
Author Organization [facility] [address] Care Team Providers Care Museum Informatics Specialist Name Role Phone Wendi Singh MD Primary Care Provider [phone] Reason for Visit * Reason Onset Date Comments Medication Refill 01/22/2018 Encounter Details Date Type Department Care Team (Late st Contact Info) Description 01/22/2018 Refill [place] [address] Vera Clark APRN [facility] [place] [address] Chronic hepatitis C without hepatic coma Social [...] coma documented in this encounter Care Teams Museum Informatics Specialist Relationship Specialty Start Date End Date Wendi Singh MD [address] [place] [address] PCP - General Family Medicine 12/11/14 documented as of this encounter
--- OUTSIDE RECORDS SUMMARY | 2024-02-26 21:30 | XMS_ITS | Encounter Summary ---
[place] [address] Care Team Providers Care Leaded Glass Installer Name Role Phone Ashley Calixto MD Primary Care Provider [phone] Encounter Details Date Type Department Care Team (Late st Contact Info) Description 01/24/2014 [place] [address] Judy Holman, ROSAURA Chronic hepatitis C Social History Tobacco Use [...] ? am) Patient Info ID #: ? [id number] ?: ??[birth year] (43 yrs) Name: ? ZACK LANGLEY ?Visit Date: 05/14/2014 11:39 am Performed By Performed By: ?Mo METZ, Ashley Attending: ? Chava WEBSTER, Pablo Angel Referred By: ? JDUY HOLMAN PRN PHYSICAL THERAPIST Service(s) Provided ??[facility] - Abdominal Complete Survey - [phone] ? [id number] Indications ??hepatitis c, please eval for cirrhosis [...] 05/14/2014 11:52 am) Patient Info ID #: [id number] : [birth year] (43 yrs) Name: ZACK LANGLEY Visit Date: 05/14/2014 11:39 am Performed By Performed By: Ashley Hassan RDMS Attending: Pablo Larsen MD Referred By: JUDY HOLMAN APRN Service(s) Provided [facility] - Abdominal Complete Survey - [phone] [id number] Indications hepatitis c, please eval for cirrhosis [...] 05/14/2014 11:52 am Mendez Peralta MD IMG GEN ORDERABL ES documented in this encounter Visit Diagnoses Diagnosis Chronic hepatitis C Chronic hepatitis C without mention of hepatic coma Chronic hepatitis C Chronic hepatitis C without mention of hepatic coma documented in this encounter Care Teams Leaded Glass Installer Relationship Specialty Start Date End Date Ashley Calixto MD [address] [place] [address] PCP - General 12/21/11 12/10/14 documented as of this encounter
--- OUTSIDE RECORDS SUMMARY | 2024-02-26 21:30 | XMS_ITS | Encounter Summary ---
Author Organization [facility] Address [facility] [place] [address] Care Team Providers Care Warehouse Receiver Name Role Phone Wendi Singh MD Primary Care Provider [phone] Reason for Visit * Reason Comments Aftercare Of Tjr Left TKA 12/02/13 Encounter Details Date Type Department Care Team (Late st Contact Info) Description 12/25/2015 5:00 PM EDT Office [place] [address] Brock Colin PA [facility] [place] [address] Status post total left knee replacement Social [...] No complaints at this point. [facility] Surgical Followup Visit 12/25/2015 PROMIS-10 General Health [...] surgery on same body part No [facility] Response 12/25/2015 KOOS-PS Scores 42 Spine [facility] Response 12/25/2015 KOOS-PS Scores 42 PE: Ambulatory [...] replacement documented in this encounter Care Teams Warehouse Receiver Relationship Specialty Start Date End Date Wendi Singh MD [address] [place] [address] PCP - General Family Medicine 12/11/14 documented as of this encounter
--- OUTSIDE RECORDS SUMMARY | 2024-02-26 21:30 | XMS_ITS | Encounter Summary ---
[place] [address] Care Team Providers Care Affiliate Manager Name Role Phone Wendi Singh MD Primary Care Provider [phone] Reason for Visit * Reason Onset Date Comments Prior Authorization 01/24/2018 Erica Encounter Details Date Type Department Care Team (Late st Contact Info) Description 01/24/2018 [place] [address] Charissa Dotson, [facility] Prior Authorization (Erica) Social History [...] Pharmacy with a $3.00 co-pay CASE/REFERENCE # [id number] APPROVAL NOTIFICATION RECEIVED VIA: Fax * Telephone Encounter - Charissa Dotson - 01/24/2018 12:45 PM EST [facility], Medication Prior Authorization Patient: Zack Langley Patient : 1970 Patient Address: [address] [facility] [address] (home) Medication: Mavyret Subscriber Insurance: [place] [...] on filedocumented in this encounter Care Teams Affiliate Manager Relationship Specialty Start Date End Date Wendi Sinhg MD [address] [place] [address] PCP - General Family Medicine 12/11/14 documented as of this encounter
--- OUTSIDE RECORDS SUMMARY | 2024-02-26 21:30 | XMS_ITS | Encounter Summary ---
[place] [address] Care Team Providers Care Ocean Export Account Manager Name Role Phone Wendi Singh MD Primary Care Provider [phone] Encounter Details Date Type Department Care Team (Late st Contact Info) Description 05/24/2015 Orders [place] [address] Natasha Garcia MD Chronic hepatitis C without hepatic coma Social [...] AM EDT) Liver Fibrosis Panel FLEXITEST 3(A) [facility] Comment: FLEXITEST 3 TESTS RESULTS--------UNITS--REF. [...] 0.61-0.62 ?A2-A3 0.63-1.00 ?A3 ? severe activity Bqrvj-5-Odjmybcfkiumh ? 144 ?mg/dL ??106-279 Haptoglobin ? 225 H ?mg/dL ??43-212 Apolipoprotein A1 ? 134 ?mg/dL ??94-176 Total Bilirubin ? 0.3 ?mg/dL ??0.2-1.2 GGT ?27 ?U/L ??3- 95 ALT ?40 ?U/L ??9- 46 Reference ID ?[id number] Footnote ?SEE NOTE The reliability of results [...] The performance characteristics have been determined by [facility], [place]. It has not been cleared or approved by the U.S. Food and Drug Administration. Performance characteristics refer to the analytical performance of the test. Barcoding, the associated logo, [employer] [place] and all associated [employer] lopez are the registered trademarks of [employer]. All third green party lopez - (R) and (TM) - are the property of their respective owners. (C) [id number] [employer]. All rights reserved. Test performed by: ? [facility] ? [id number] ? [place] [address] ? Phone: ??[phone] Director: ??Yordan Ocampo M.D. Test Reported by [employer] [place], [facility], [address] [place] [address] Jacob Michelle M.D., Ph.D., Director of Laboratories , [facility] [id number] Blood specimen (specimen) 06/15/2015 11:35 AM EDT 06/15/2015 1:37 PM EDT Narrative Resulting Agency Comment Spec In Lab Natasha Garcia MD LAB SEND OUT ORDERAB LES Performing Organization Address [facility] Co de Phone Number [facility] [place] [address] * Hepatitis B Surface Antigen (06/15/2015 11:35 AM EDT) Hepatitis B Surface Antigen Negative Negative [facility] Blood specimen (specimen) 06/15/2015 11:35 AM EDT 06/15/2015 11:46 AM EDT Narrative Resulting Agency Comment Spec In Lab Natasha Garcia MD CHEMISTRY ORDERABLES Performing Organization Address [facility] Co de Phone Number [facility] [place] [address] * Hepatitis B Surface Antibody (06/15/2015 11:35 AM EDT) Hepatitis B Surface Antibody Positive [facility] Comment: Expected Results: Vaccinated: Positive [...] In Lab Natasha Garcia MD CHEMISTRY ORDERABLES [facility] [place] [address] * (ABNORMAL) Hepatitis A Antibody, Total (06/15/2015 11:35 AM EDT) Pathologist [facility] Hepatitis A ANTIBODY, TOTAL Positive(A ) Negative [facility] Blood specimen (specimen) 06/15/2015 11:35 AM EDT 06/15/2015 11:46 AM EDT Narrative Resulting Agency Comment Spec In Lab Natasha Garcia MD CHEMISTRY ORDERABLES [facility] [place] [address] * Hepatitis C RNA, quantitative, PCR (06/15/2015 11:35 AM EDT) HCV Viral Load 910,856 IU/mL [facility] HCV Viral Load Result: [id number] IU/mL Indication for Study: Hepatitis C Infection Analysis: A quantitiative real time reverse transcriptase PCR assay was performed on extracted viral RNA for the purpose of quantification. Sample: plasma (1 mL minimum volume) Method: Devonte Jose TaqMAN 48 HCV Linear Range: 15 IU/mL - 100,000,000IU/mL (95% CI) Note: This assay is being performed in the [facility] Molecular Pathology Laboratory. Bertin Beach, Ph.D. Director, Molecular Pathology [facility] Comment: [VERIFIED DATE]06.18.15 Verified By:Mary Murphy (Electronic Signature) Blood specimen (specimen) 06/15/2015 11:35 AM EDT 06/16/2015 8:51 AM EDT Narrative Resulting Agency Comment Spec In Lab Natasha Garcia MD MOLECULAR ORDERABLES Performing Organization Address [facility] Co de Phone Number [facility] [place] [address] * Prothrombin Time (06/15/2015 11:35 AM EDT) Prothrombin Time 12.6 12.0 - 15.0 sec [facility] Comment: An INR <2.0 indicates [...] International Normalization Ratio 0.9 0.9 - 1.1 [facility] Blood specimen (specimen) 06/15/2015 11:35 AM EDT 06/15/2015 11:46 AM EDT Narrative Resulting Agency Comment Spec In Lab Natasha Garcia MD HEMATOLOGY ORDERABLE S Performing Organization Address City/[facility] Co de Phone Number [facility] [place] [address] * (ABNORMAL) Comprehensive metabolic panel (non-fasting) (06/15/2015 11:35 AM EDT) Pathologist [facility] Glucose 97 65 - 199 mg/dL [facility] Comment:Diabetes: >=200 mg/d L plus symptoms Blood Urea Nitrogen 8(L) 10 - 20 mg/dL [facility] Creatinine 0.78(L) 0.80 - 1.50 mg/dL [facility] Comment: Please note that the pediatric reference intervals supplied above were not validated at [facility]. Results from pediatric patients should be interpreted in conjunction to the patient's age, height and muscle mass. Sodium 136 135 - 145 mmol/L [facility] Potassium 4.4 3.5 - 5.0 mmol/L [facility] Comment: Please note: ??Patients with WBC >100,000 may have falsely elevated Potassium levels. ??For accurate Potassium quantification in these patients send serum separator tube (gold top) for subsequent determinations. ??Contact the Clinical Chemistry Laboratory if there are any questions. Chloride 98 98 - 107 mmol/L [facility] Carbon Dioxide 23 22 - 31 mmol/L [facility] Anion Gap 15 5 - 15 mmol/L [facility] Calcium 9.3 8.5 - 10.5 mg/dL [facility] Protein, Total 7.6 6.1 - 8.0 gm/dL [facility] Albumin 4.3 3.2 - 5.2 gm/dL [facility] Aspartate Aminotransferase 23 0 - 39 unit/L [facility] Alanine Aminotransferase 42 0 - 55 unit/L [facility] Alkaline Phosphatase 69 40 - 120 unit/L [facility] Bilirubin, Total 0.2 0.2 - 1.3 mg/dL [facility] Bilirubin, Direct <0.1 0.0 - 0.3 mg/dL [facility] Est Glomerular Filtration Rate >60 >=60 [facility] Comment: This estimated GFR (eGFR) [...] the following links into your internet browser. [email or web address] [email or web address] Blood specimen (specimen) 06/15/2015 11:35 AM EDT 06/15/2015 11:46 AM EDT Narrative Resulting Agency Comment Spec In Lab Natasha Garcia MD CHEMISTRY ORDERABLES [facility] [place] [address] documented in this encounter Visit Diagnoses Diagnosis Chronic hepatitis C without hepatic coma documented in this encounter Care Teams Ocean Export Account Manager Relationship Specialty Start Date End Date Wendi Singh MD [address] [place] [address] PCP - General Family Medicine 12/11/14 documented as of this encounter
--- OUTSIDE RECORDS SUMMARY | 2024-02-26 21:30 | XMS_ITS | Encounter Summary ---
Author Organization [facility] Address [facility] [place] [address] Care Team Providers Care Material Mover Name Role Phone Ashley Calixto MD Primary Care Provider [phone] Encounter Details Date Type Department Care Team (Latest Contact Info) Description 05/14/2014 11:58 AM EDT - 05/14/2014 11:59 PM EDT Hospital [place] [address] Mendez Peralta MD [facility] [place] [address] Chronic viral hepatitis C; Chronic hepatitis C [...] Chronic viral hepatitis C COMPREHENSIVE METABOLIC PANEL Routine 05/14/2014 12:17 PM EDT Chronic viral hepatitis C documented in this encounter Results * Nucleated Red Blood Cells (05/14/2014 12:17 PM EDT) NRBC% auto 0.0 % [facility] NRBC Absolute 0.000 0.000 - 0.012 x10(3)/mcL [facility] Blood specimen (specimen) 05/14/2014 12:17 PM EDT 05/14/2014 12:27 PM EDT Narrative Resulting Agency Comment Spec In Lab Mendez Peralta MD HEMATOLOGY ORDERABL ES Performing Organization Address [facility]/ZIP Co de Phone Number [facility] * Scan, Peripheral Blood (05/14/2014 12:17 PM EDT) Pathologist [facility] Plat estimate Normal [facility] RBC Morphology Normal [facility] Blood specimen (specimen) 05/14/2014 12:17 PM EDT 05/14/2014 12:27 PM EDT Narrative Resulting Agency Comment Spec In Lab Mendez Pearlta MD HEMATOLOGY ORDERABL ES Performing Organization Address [facility] Co de Phone Number [facility] * HCV Quant Devonte (05/14/2014 12:17 PM EDT) [facility] HCV Viral Load 1,011,586 IU/mL [facility] HCV Viral Load Result: [id number] IU/mL Indication for Study: Hepatitis C Infection Analysis: A quantitiative real time reverse transcriptase PCR assay was performed on extracted viral RNA for the purpose of quantification. Sample: plasma (1 mL minimum volume) Method: Devonte Jose TaqMAN 48 HCV Linear Range: 15 IU/mL - 100,000,000IU/mL (95% CI) Note: This assay is being performed in the [facility] Molecular Pathology Laboratory. Bertin Beach, Ph.D. Director, Molecular Pathology [facility] Comment: [VERIFIED DATE]05.19.14 Verified By:Michelle Ayala I (Electronic Signature) Blood specimen (specimen) 05/14/2014 12:17 PM EDT 05/16/2014 10:59 AM EDT Narrative Resulting Agency Comment Spec In Lab Mendez Peralta MD HEMATOLOGY ORDERABL ES Performing Organization Address [facility] Co de Phone Number [facility] * (ABNORMAL) Differential, Automated (05/14/2014 12:17 PM EDT) [facility] Neutrophil % 54.4 % [facility] Neutrophil Absolute 6.84(H) 1.50 - 6.30 x10(3)/mc L [facility] Lymph % 36.8 % [facility] MILLENNIUM Lymphocytes Abs 4.6(H) 1.0 - 3.6 x10(3)/mc L [facility] Monocyte % 5.0 % [facility] MILLENNIUM Monocyte Abs 0.6 0.2 - 1.0 x10(3)/mc L [facility] MILL[facility]NI[facility] Eos % 3.2 % [facility] MILLENNIUM Eosinophils Abs 0.4 0.0 - 0.5 x10(3)/mc L [facility] MILLENNIUM Basophil % 0.4 % [facility] MILLENNIUM Baso Absolute 0.0 0.0 - 0.2 x10(3)/mc L [facility]NI[facility] Immature Gran % 0.20 % [facility] Comment: Immature granulocytes(IG's)percentage and absolute count will include metamyelocytes, myelocytes, and promyelocytes. Blood smears from CBCs yielding IG's will be scanned manually for concordance. If this scan disagrees with the automated IG or if promyelocytes are noted, a manual differential will be performed. Immature Gran Absolute 0.02 0.00 - 0.05 x10(3)/mc L [facility] Blood specimen (specimen) 05/14/2014 12:17 PM EDT 05/14/2014 12:27 PM EDT Narrative Resulting Agency Comment Spec In Lab Mendez Peralta MD HEMATOLOGY ORDERABL ES [facility] * (ABNORMAL) Hemogram (05/14/2014 12:17 PM EDT) White Blood Cell 12.6(H) 4.0 - 10.0 x10(3)/mc L [facility] Red Blood Cell 4.88 4.63 - 6.08 x10(6)/mc L [facility] MILLENNIUM Hemoglobin 14.3 13.7 - 17.5 gm/dL [facility] MILLENNIUM Hematocrit 41.3 40.0 - 51.0 % CERNER MILLENNIUM Mean Cell Volume 84.6 79.0 - 92.0 fL [facility] MILLENNIUM Mean Cell Hemoglobin 29.3 25.6 - 32.2 pg CERNER MILLENNIUM Mean Cell Hemoglobin Concentration 34.6 32.0 - 36.5 gm/dL [facility]ERN[facility] MILLENNIUM Platelet 285 145 - 370 x10(3)/mc L [facility]ERN[facility] MILLENNIUM RDW Standard Deviation 39.7 35.0 - 46.0 fL [facility] MILLENNIUM RDW coefficient of variation 13.0 10.9 - 14.4 % CERNER MILLENNIUM Mean Platelet Volume 11.4 9.0 - 12.0 fL [facility] Blood specimen (specimen) 05/14/2014 12:17 PM EDT 05/14/2014 12:27 PM EDT Narrative Resulting Agency Comment Spec In Lab Mendez Peralta MD HEMATOLOGY ORDERABL ES [facility] * (ABNORMAL) Comprehensive metabolic panel (non-fasting) (05/14/2014 12:17 PM EDT) [facility] Glucose 89 60 - 199 mg/dL [facility] Comment:Diabetes: >=200 mg/d L plus symptoms Blood Urea Nitrogen 13 10 - 20 mg/dL [facility] MILLENNIUM [...] 97(L) 98 - 107 mmol/L [facility] Carbon Dioxide 25 22 - 31 mmol/L [facility] Anion Gap 16(H) 5 - 15 mmol/L [facility] Calcium 9.4 8.5 - 10.5 mg/dL [facility] Protein, Total 8.0 6.1 - 8.0 gm/dL [facility] Albumin 4.2 3.2 - 5.2 gm/dL [facility] Aspartate Aminotransferase 20 0 - 39 unit/L [facility] Alanine Aminotransferase 27 0 - 55 unit/L [facility] Alkaline Phosphatase 79 40 - 120 unit/L [facility] Bilirubin, Total 0.2 0.2 - 1.3 mg/dL [facility]ILL[facility]NI[facility] Bilirubin, Direct 0.1 0.0 - 0.3 mg/dL [facility] Est Glomerular Filtration Rate >60 >=60 [facility] Comment: This estimated [...] the following links into your internet browser. [email or web address]/DHnkdep [email or web address]/DHMCnkf Blood specimen (specimen) 05/14/2014 12:17 PM EDT 05/14/2014 12:27 PM EDT Narrative Resulting Agency Comment Spec In Lab Mendez Peralta MD CHEMISTRY ORDERABLE S CERJERE MORALES documented in this encounter Visit Diagnoses Diagnosis Chronic viral hepatitis C Chronic hepatitis C without mention of hepatic coma Chronic hepatitis C Chronic hepatitis C without mention of hepatic coma documented in this encounter Care Teams Material Mover Relationship Specialty Start Date End Date Ashley Calixto MD [address] [place] [address] PCP - General 12/21/11 12/10/14 documented as of this encounter
--- OUTSIDE RECORDS SUMMARY | 2024-02-26 21:30 | XMS_ITS | Encounter Summary ---
Author Organization [facility] Address [facility] [place] [address] Care Team Providers Care Paleologist Name Role Phone Ashley Calixto MD Primary Care Provider [phone] Encounter Details Date Type Department Care Team (Latest Contact Info) Description 05/14/2014 10:59 AM EDT - 05/14/2014 11:57 AM EDT Hospital En[place] [address] Chronic hepatitis C Social History Tobacco Use [...] ? am) Patient Info ID #: ? [id number] ?: ??[birth year] (43 yrs) Name: ? ZACK LANGLEY ?Visit Date: 05/14/2014 11:39 am Performed By Performed By: ?Ashley Hassan RDMS Attending: ? Chava WEBSTER, Pablo Angel Referred By: ? JUDY HOLMAN PRIMER CHARGER Service(s) Provided ??[facility] - Abdominal Complete Survey - [id number] ? [id number] Indications ??hepatitis c, please eval for cirrhosis [...] 05/14/2014 11:52 am) Patient Info ID #: [id number] : [birth year] (43 yrs) Name: ZACK LANGLEY Visit Date: 05/14/2014 11:39 am Performed By Performed By: Ashley Hassan RDMS Attending: Pablo Larsen MD Referred By: JUDY HOLMAN APRN Service(s) Provided [facility] - Abdominal Complete Survey - [phone] [id number] Indications hepatitis c, please eval for cirrhosis [...] coma documented in this encounter Care Teams Paleologist Relationship Specialty Start Date End Date Ashley Calixto MD [facility] [address] [place] [address] PCP - General 12/21/11 12/10/14 documented as of this encounter
--- OUTSIDE RECORDS SUMMARY | 2024-02-26 21:30 | XMS_ITS | Encounter Summary ---
Author Organization [facility] Address [facility] [place] [address] Care Team Providers Care Flue Dust Laborer Name Role Phone Ashley Calixto MD Primary Care Provider [phone] Encounter Details Date Type Department Care Team (Latest Contact Info) Description 05/14/2014 11:58 AM EDT - 05/14/2014 11:59 PM EDT Hospital [place] [address] Subha Ross MD [facility] [address] Chronic hepatitis C Discharge Disposition: Home Social [...] coma documented in this encounter Care Teams Flue Dust Laborer Relationship Specialty Start Date End Date Ashley Calixto MD [address] [place] [address] PCP - General 12/21/11 12/10/14 documented as of this encounter
--- OUTSIDE RECORDS SUMMARY | 2024-02-26 21:30 | XMS_ITS | Encounter Summary ---
Author Organization [facility] [place] [address] Care Team Providers Care Director Of Marketing Operations Name Role Phone Ashley Calixto MD Primary Care Provider [phone] Reason for Visit * Reason Comments Follow-up Encounter Details Date Type Department Care Team (Late st Contact Info) Description 05/14/2014 1:30 PM EDT Follow-[place] [address] CLINIC, Rebecca Mishra APRN [facility] [place] [address] Chronic hepatitis C Discharge Disposition: Home Social [...] this encounter Progress Notes * Rebecca Borrero, PETROL TANKER DRIVER - 05/14/2014 1:28 PM EDT Subjective: Patient [...] his liver. [place] with mild fibrosis. ammonium lactate (LAC-HYDRIN) 12 % Lotion; PRINZIDE 20-12.5 mg Tablet; SUBOXONE 2-0.5 mg Film; aspirin 81 mg Tablet, Delayed Release (E.C.); NAPROXEN SODIUM (ALEVE ORAL); METFORMIN HCL (METFORMIN ORAL); pravastatin (PRAVACHOL) 20 mg tablet Allergies Allergen Reactions ??? Isoniazid ? Rash... Family Status Relation Status Age ??? Mother 54 cancer ??? Father 56 SD ??? Sister Alive age 61 ??? Sister [...] in this encounter Care Teams Director Of Marketing Operations Relationship Specialty Start Date End Date Ashley Calixto MD [address] [place] [address] PCP - General 12/21/11 12/10/14 documented as of this encounter
--- OUTSIDE RECORDS SUMMARY | 2024-02-26 21:30 | XMS_ITS | Encounter Summary ---
Author Organization [facility] [address] Care Team Providers Care Pressure Washer Name Role Phone Wendi Singh MD Primary Care Provider [phone] Reason for Visit * Reason Comments Procedure Encounter Details Date Type Department Care Team (Latest Contact Info) Description 06/15/2015 10:30 AM EDT Procedure [place] [address] Vera Clark APRN [facility] [place] [address] Chronic hepatitis C without hepatic coma Social [...] Vibration Controlled Transient Elastography (VCTE) or Fibroscan [place] Protocol: Patient's identity, procedure and site were [...] coma documented in this encounter Care Teams Pressure Washer Relationship Specialty Start Date End Date Wendi Singh MD [address] [place] [address] PCP - General Family Medicine 12/11/14 documented as of this encounter
--- OUTSIDE RECORDS SUMMARY | 2024-02-26 21:30 | XMS_ITS | Encounter Summary ---
[place] [address] Care Team Providers Care Mat Tester Name Role Phone Wendi Singh MD Primary Care Provider [phone] Reason for Visit * Reason Comments Patient Education Encounter Details Date Type Department Care Team (Late st Contact Info) Description 02/21/2018 Specialty [place] [address] Sujey Johnson Del Social History Tobacco Use [...] calculate BMI. Medication Reconciliation Discrepancies (compared to [facility] med list) - None Medication Adherence Patient [...] beneficiary Provider: plan sponsor pharmacist Visit Type: [facility] Follow-up Method of Contact: by telephone Cognitive [...] preventative care discussed, reminder to refill or miner pick medication discussed, self-monitoring discussed, start medication discussed [...] preventative care discussed, reminder to refill or miner pick medication discussed, self-monitoring discussed, start medication discussed [...] Assessment: Does the patient have a primary caregiver services home? no Patient has emergency contact on file: Yes Does patient need referral to bilingual social worker: No Does patient need referral to advocacy [...] were made at the appointment and that [facility] isproviding recommendations (summary located at top of note) for provider review and follow up. Sujey Johnson RPH 02/21/18 11:24 AM documented in this encounter Plan of Treatment Not on file documented as of this encounter Goals Goal Patient Goal Type Associated Problems Recent Progress Patient-Stated? Author [facility] Medication Compliance and Understanding Patient Facing Action Plan No Yaquelin Hutton [facility] Note: SVR12 through treatment with Mavyret. documented as of this encounter Visit Diagnoses Not on filedocumented in this encounter Care Teams Mat Tester Relationship Specialty Start Date End Date Wendi Singh MD [address] [place] [address] PCP - General Family Medicine 12/11/14 documented as of this encounter
--- OUTSIDE RECORDS SUMMARY | 2024-02-26 21:30 | XMS_ITS | Encounter Summary ---
[place] [address] Care Team Providers Care Log Raft Worker Name Role Phone Ashley Calixto MD Primary Care Provider [phone] Encounter Details Date Type Department Care Team (Latest Contact Info) Description 12/23/2013 Anti-Coag Telephone [place] [address] Meghana Gleason, RN S/P total knee arthroplasty, [...] Therapeutic Range: 2.0-3.0 INR: 2.3 Drawn by: [facility] Patient presents with no signs of bleeding [...] Results * (ABNORMAL) External Lab Results (12/23/2013) INR, POC 2.3(Externa l Lab) 0.9 - 1.1 12/23/2013 Historical Provider CHEMISTRY ORDERAB LES documented in this encounter Visit Diagnoses Diagnosis S/P total knee arthroplasty, left documented in this encounter Care Teams Log Raft Worker Relationship Specialty Start Date End Date Ashley Calixto MD [address] [place] [address] PCP - General 12/21/11 12/10/14 documented as of this encounter
--- OUTSIDE RECORDS SUMMARY | 2024-02-26 21:30 | XMS_ITS | Encounter Summary ---
Author Organization [facility] [place] [address] Care Team Providers Care Oracle Financials Developer Name Role Phone Wendi Singh MD Primary Care Provider [phone] Encounter Details Date Type Department Care Team (Late st Contact Info) Description 02/12/2018 Orders [place] [address] Vera Clark APRN [facility] [place] [address] Chronic hepatitis C without hepatic coma Social [...] Type Associated Problems Recent Progress Patient-Stated? Author [facility] Medication Compliance and Understanding Patient Facing Action Plan Yaquelin Lau, [facility] Note: SVR12 through treatment with Mavyret. documented as of this encounter Visit Diagnoses Diagnosis Chronic hepatitis C without hepatic coma documented in this encounter Care Teams [employer] Financ[employer] Developer Relationship Specialty Start Date End Date Wendi Singh MD [address] [place] [address] PCP - General Family Medicine 12/11/14 documented as of this encounter
--- OUTSIDE RECORDS SUMMARY | 2024-02-26 21:30 | XMS_ITS | Encounter Summary ---
Author Organization [facility] Address [facility] [place] [address] Care Team Providers Care Rug Receiving Clerk Name Role Phone Ashley Calixto MD Primary Care Provider [phone] Encounter Details Date Type Department Care Team (Latest Contact Info) Description 01/02/2014 9:42 AM EST - 01/02/2014 11:59 PM [facility] Hospital Encounter XRay at [address] [place] [address] Osteoarthritis of knee Social History Tobacco Use [...] leg documented in this encounter Care Teams Rug Receiving Clerk Relationship Specialty Start Date End Date Ashley Calixto MD [facility] [address] [place] [address] PCP - General 12/21/11 12/10/14 documented as of this encounter
--- OUTSIDE RECORDS SUMMARY | 2024-02-26 21:30 | XMS_ITS | Encounter Summary ---
Author Organization [facility] [place] [place] [address] Care Team Providers Care Firer Watertender Name Role Phone Wendi Singh MD Primary Care Provider [phone] Encounter Details Date Type Department Care Team (Late st Contact Info) Description 03/07/2018 External Results [place] [address] Vera Clark [employer] [facility] [place] [address] Social History Tobacco Use Types Packs/Day Years [...] Type Associated Problems Recent Progress Patient-Stated? Author [facility] Medication Compliance and Understanding Patient Facing Action Plan Yaquelin Lau, [facility] Note: SVR12 through treatment with [...] on filedocumented in this encounter Care Teams Firer Watertender Relationship Specialty Start Date End Date Wendi Singh MD [address] [place] [address] PCP - General Family Medicine 12/11/14 documented as of this encounter
--- OUTSIDE RECORDS SUMMARY | 2024-02-26 21:30 | XMS_ITS | Encounter Summary ---
Author Organization [facility] [place] [address] Care Team Providers Care Blackjack Pit Boss Name Role Phone Wendi Singh MD Primary Care Provider [phone] Reason for Visit * Reason Comments Follow-up Encounter Details Date Type Department Care Team (Late st Contact Info) Description 08/19/2016 10:00 AM EDT Office [place] [address] Vera Hong APRN [facility] [place] [address] Chronic hepatitis C without hepatic coma; Alcohol [...] no fibrosis of his liver. His insurance ([place]) will not cover treatment for under [...] Hong APRN Section of [place]astroenter[place] [address] 25 minutes of this 30 minute visit in face to face discussion regarding disease, prognosis and treatment documented in this encounter Procedure Notes * Vera Hong APRN - 08/19/2016 10:00 AM EDTAssociated Order(s): FIBROSCAN Procedure(s): FIBROSCAN Pre-Procedure Diagnose(s): Chronic hepatitis C without hepatic coma [facility] Liver Fibrosis Assessment Report Indication: Hepatitis C Performed by: VERA HONG APRN Procedure: Vibration Controlled Transient Elastography (VCTE) or Fibroscan [place] Protocol: Patient's identity, procedure and site were [...] Procedure Name Priority Date/Time Associated Diagnosis Comments [id number] Routine 08/19/2016 3:39 PM EDT Chronic hepatitis C without hepatic coma COMPREHENSIVE METABOLIC PANEL Routine 08/19/2016 10:55 AM EDT Chronic hepatitis C without hepatic coma documented in this encounter Results * [id number] (08/19/2016 3:39 PM EDT) Narrative Vera Hong APRN - 08/19/2016 3:39 PM EDT Vera Hong APRN ? 08/19/2016 ??3:39 PM [facility] Liver Fibrosis Assessment Report Indication: ??Hepatitis C Performed by: ??VERA HONG APRN ?? Procedure: Vibration Controlled Transient Elastography (VCTE) or Fibroscan [place] Protocol: Patient's identity, procedure and site were [...] panel (non-fasting) (08/19/2016 10:55 AM EDT) Glucose 238(H) 65 - 199 mg/dL [facility] Comment:Diabetes: >=200 mg/d L plus symptoms Blood Urea Nitrogen 9(L) 10 - 20 mg/dL [facility] Creatinine 0.73(L) 0.80 - 1.50 mg/dL [facility] Comment: Please note that the pediatric reference intervals supplied above were not validated at [facility]. Results from pediatric patients should be interpreted in conjunction to the patient's age, height and muscle mass. Sodium 136 135 - 145 mmol/L [facility] Potassium 4.3 3.5 - 5.0 mmol/L [facility] Comment: Please note: ??Patients with WBC >100,000 may have falsely elevated Potassium levels. ??For accurate Potassium quantification in these patients send serum separator tube (gold top) for subsequent determinations. ??Contact the Clinical Chemistry Laboratory if there are any questions. Chloride 97(L) 98 - 107 mmol/L [facility] Carbon Dioxide 25 22 - 31 mmol/L [facility] Anion Gap 14 5 - 15 mmol/L [facility] Calcium 9.2 8.5 - 10.5 mg/dL [facility] Protein, Total 7.7 6.1 - 8.0 gm/dL [facility] Albumin 4.0 3.2 - 5.2 gm/dL [facility] Aspartate Aminotransferase 24 0 - 39 unit/L [facility] Alanine Aminotransferase 48 0 - 55 unit/L [facility] Alkaline Phosphatase 82 40 - 120 unit/L [facility] Bilirubin, Total <0.2(L) 0.2 - 1.3 mg/dL [facility] Bilirubin, Direct 0.1 0.0 - 0.3 mg/dL [facility] Est Glomerular Filtration Rate >60 >=60 [facility] Comment: This estimated GFR [...] the following links into your internet browser. [email or web address] [email or web address] Blood specimen (specimen) 08/19/2016 10:55 AM EDT 08/19/2016 11:03 AM EDT Narrative Resulting Agency Comment Spec In Lab Vera Hong APRN CHEMISTRY ORDERABL ES Performing Organization Address City/State/[facility] Co de Phone Number [facility] [place] [address] documented in this encounter Visit Diagnoses Diagnosis Chronic hepatitis C without hepatic coma Alcohol abuse, in remission Nondependent alcohol abuse, in remission documented in this encounter Care Teams Blackjack Pit Boss Relationship Specialty Start Date End Date Wendi Singh MD [address] [place] [address] PCP - General Family Medicine 12/11/14 documented as of this encounter
--- OUTSIDE RECORDS SUMMARY | 2024-02-26 21:30 | XMS_ITS | Encounter Summary ---
Author Organization [facility] [address] Care Team Providers Care Dairy Laboratory Technician Name Role Phone Wendi Singh MD Primary Care Provider [phone] Reason for Visit * Reason Comments Follow-up Encounter Details Date Type Department Care Team (Late st Contact Info) Description 01/12/2018 10:00 AM EST Office Visit [place] [address] Vera Clark APRN [facility] [place] [address] Chronic hepatitis C without hepatic coma Social [...] this encounter Progress Notes * Vera Clark, IGNITION SPECIALIST - 01/12/2018 10:00 AM EST Hepatology Follow [...] Clark APRN Section of Gastroenter[place] [address] 25 minutes of this 30 minute visit [...] without hepatic coma COMPREHENSIVE METABOLIC PANEL Routine 01/12/2018 11:54 AM EST Chronic hepatitis C without hepatic coma documented in this encounter Results * (ABNORMAL) Differential, Automated (01/12/2018 11:54 AM EST) Neutrophil % 43.6 % [facility] Neutrophil Absolute 3.84 1.70 - 6.10 x10(3)/mc L [facility] Lymph % 45.8 % [facility] Lymphocytes Abs 4.0(H) 0.9 - 3.2 x10(3)/[facility] Monocyte % 6.7 % [facility] Monocyte Abs 0.6 0.3 - 0.9 x10(3)/[facility] Eos % 2.9 % [facility] Eosinophils Abs 0.3 0.0 - 0.4 x10(3)/[facility] Basophil % 0.8 % [facility] Baso Absolute 0.1 0.0 - 0.1 x10(3)/[facility] Immature Gran % 0.20 % [facility] Comment: Immature granulocytes(IG's)percentage and absolute count will include metamyelocytes, myelocytes, and promyelocytes. Blood smears from CBCs yielding IG's will be scanned manually for concordance. If this scan disagrees with the automated IG or if promyelocytes are noted, a manual differential will be performed. Immature Gran Absolute 0.02 0.00 - 0.04 x10(3)/[facility] Blood specimen (specimen) 01/12/2018 11:54 AM EST 01/12/2018 12:18 PM EST Narrative Resulting Agency Comment Spec In Lab Vera Clark APRN HEMATOLOGY ORDERAB LES [facility] [place] [address] * Hemogram (01/12/2018 11:54 AM EST) White Blood Cell 8.8 4.0 - 9.5 x10(3)/[facility] Red Blood Cell 4.78 4.58 - 5.54 x10(6)/[facility] Hemoglobin 14.1 13.7 - 16.5 gm/dL [facility] Hematocrit 41.3 40.5 - 48.5 % [facility] Mean Cell Volume 86.4 82.9 - 93.1 fL [facility] Mean Cell Hemoglobin 29.5 27.5 - 32.1 pg [facility] Mean Cell Hemoglobin Concentration 34.1 32.0 - 35.7 gm/dL [facility] Platelet 220 145 - 357 x10(3)/[facility] RDW Standard Deviation 38.4 36.0 - 45.0 fL [facility] RDW coefficient of variation 12.0 11.4 - 13.8 % [facility] Mean Platelet Volume 11.3 7.6 - 12.9 fL [facility] NRBC% auto 0.0 % [facility] NRBC Absolute 0.000 0.000 - 0.000 x10(3)/[facility] Blood specimen (specimen) 01/12/2018 11:54 AM EST 01/12/2018 12:18 PM EST Narrative Resulting Agency Comment Spec In Lab Vera Clark APRN HEMATOLOGY ORDERAB LES [facility] [place] [address] * Hepatitis C RNA, quantitative, PCR (01/12/2018 11:54 AM EST) HCV Viral Load 1,072,106 IU/mL [facility] HCV Viral Load Result: [id number] IU/mL Indication for Study: Hepatitis C Infection Analysis: The [employer] RealTime HCV assay is an in vitro reverse livestock broker polymerase chain reaction (RT-PCR)for the quantitation of hepatitis C viral (HCV) RNA in human serum or plasma (EDTA) from HCV-infected individuals. Sample: plasma (0.7 mL minimum volume) Method: [employer] RealTime HCV Assay Linear Range: 12 IU/mL - 100,000,000IU/mL Note: The [employer] RealTime HCV Assay has been approved by the U.S. Food and Drug Administration. [facility] Comment: [VERIFIED DATE]01.16.18 Verified By:Charissa Bennett (Electronic Signature) Blood specimen (specimen) 01/12/2018 11:54 AM EST 01/15/2018 3:01 PM EST Narrative Resulting Agency Comment Spec In Lab Vera Clark ROSAURA MOLECULAR ORDERABL ES [facility] [place] [address] * (ABNORMAL) Comprehensive metabolic panel (non-fasting) (01/12/2018 11:54 AM EST) Glucose 116 65 - 199 mg/dL [facility] Comment:Diabetes: >=200 mg/d L plus symptoms Blood Urea Nitrogen 10 10 - 20 mg/dL [facility] Creatinine 0.75(L) 0.80 - 1.50 mg/dL [facility] Sodium 137 135 - 145 mmol/L [place] [facility] Carbon Dioxide 22 22 - 31 mmol/L [facility] Anion Gap 17(H) 5 - 15 mmol/L [facility] Calcium 9.2 8.5 - 10.5 mg/dL [facility] Protein, Total 7.8 6.1 - 8.0 gm/dL [facility] Albumin 4.1 3.2 - 5.2 gm/dL [facility] Aspartate Aminotransferase 22 0 - 39 unit/L [facility] Alanine Aminotransferase 32 0 - 55 unit/L [facility] Alkaline Phosphatase 68 40 - 120 unit/L [facility] Bilirubin, Total <0.2(L) 0.2 - 1.3 mg/dL [facility] Est Glomerular Filtration Rate 108 >=60 mL/min/1. 73 m?? [facility] Comment: The eGFR was calculated using the CKD-EPI equation. As with all creatinine based estimates of kidney function, eGFR values calculated with the CKD-EPI equation are not accurate in patients with acute kidney failure, extremes of body mass or the acutely ill. [email or web address] eGFR 125 >=60 mL/min/1. 73 m?? [facility] Comment: The eGFR was calculated using the CKD-EPI equation. As with all creatinine based estimates of kidney function, eGFR values calculated with the CKD-EPI equation are not accurate in patients with acute kidney failure, extremes of body mass or the acutely ill. http://[employer]/DHMCnkf Blood specimen (specimen) 01/12/2018 11:54 AM EST 01/12/2018 12:18 PM EST Narrative Resulting Agency Comment Spec In Lab Vera Clark APRN CHEMISTRY ORDERABL ES [facility] [place] [address] documented in this encounter Visit Diagnoses Diagnosis Chronic hepatitis C without hepatic coma documented in this encounter Care Teams Dairy Laboratory Technician Relationship Specialty Start Date End Date Wendi Singh MD [address] [place] [address] PCP - General Family Medicine 12/11/14 documented as of this encounter
--- OUTSIDE RECORDS SUMMARY | 2024-02-26 21:30 | XMS_ITS | Encounter Summary ---
Author Organization [facility] [place] [address] Care Team Providers Care Flux Core Welder Name Role Phone Ashley Calixto MD Primary Care Provider [phone] Reason for Visit * Reason Onset Date Comments Medication Refill 12/16/2013 Encounter Details Date Type Department Care Team (Late st Contact Info) Description 12/16/2013 Refill [place] [address] Mihir Herrera MD [facility] [place] [address] Knee joint replacement by other means (Primary [...] 12/16/2013 8:40 AM EDT Patient Name: Zack Langley : [id number] MR#: [id number] Case Date: 12/02/2013 Surgeon: Surgeon(s) and Role: * Mihir Herrera MD - Primary * Florencio Davenport PA - Physician Engineering Mechanic Preoperative diagnosis: Left DJD Postoperative diagnosis: Left [...] MAILED OVERNIGHT Best number to reach person calling?[phone] The nurse will call you when your prescription is ready, please allow up to 72 hrs for processing. documented in this encounter Plan of Treatment Not on file documented as of this encounter Visit Diagnoses Diagnosis Knee joint replacement by other means- Primary documented in this encounter Care Teams Flux Core Welder Relationship Specialty Start Date End Date Ashley Calixto MD [facility] [address] [facility] [address] [place] [address] PCP - General 12/21/11 12/10/14 documented as of this encounter
--- OUTSIDE RECORDS SUMMARY | 2024-02-26 21:30 | XMS_ITS | Encounter Summary ---
[place] [address] Care Team Providers Care Typer Name Role Phone Wendi Singh MD Primary Care Provider [phone] Reason for Visit * Reason Comments Medication Management Encounter Details Date Type Department Care Team (Late st Contact Info) Description 02/07/2018 Specialty [place] [address] Yaquelin Hutton [facility] Social History Tobacco Use Types Packs/Day Years [...] calculate BMI. Medication Reconciliation Discrepancies (compared to [facility] med list) -none Medication Adherence Patient reported [...] beneficiary Provider: plan sponsor pharmacist Visit Type: [facility] Follow-up Method of Contact: by [...] Assessment: Does the patient have a primary memory care program director? no Patient has emergency contact on file: Yes Does patient need referral to social worker school: No Does patient need referral to advocacy [...] were made at the appointment and that [facility] isproviding recommendations (summary located at top [...] on filedocumented in this encounter Care Teams Typer Relationship Specialty Start Date End Date Wendi Singh MD [address] [place] [address] PCP - General Family Medicine 12/11/14 documented as of this encounter
--- OUTSIDE RECORDS SUMMARY | 2024-02-26 21:30 | XMS_ITS | Encounter Summary ---
Author Organization [facility] [place] [address] Care Team Providers Care Pool Servicer Name Role Phone Ashley Calixto MD Primary Care Provider [phone] Reason for Referral * Physical Therapy (Routine) - Complete - Patient Will Schedule External Appt Specialty Diagnoses / Procedures Referred By Casey reyes Referred To Contact Physical Therapy Diagnoses S/P total knee arthroplasty, left Michelle Elder APRN [facility] [place] [address] Referral ID Status Reason Start Date Expiration Date Visits Requested Visits Authorized [id number] Complete - Patient Will Schedule External Appt Evaluate and Treat 01/02/2014 07/01/2014 2 2 Reason for Visit * Reason Comments [facility] S/P DOS 12/02/13 LEFT TKA W/C 12/30/10 DOI Encounter Details Date Type Department Care Team (Late st Contact Info) Description 01/02/2014 10:10 AM EST Office Visit [place] [address] Mihir Herrera MD [facility] [place] [address] Michelle Elder APRN [facility] [place] [address] S/P total knee arthroplasty, left (Primary Dx) [...] this encounter Progress Notes * Michelle Kim, MILLER SUPERVISOR - 01/02/2014 11:20 AM EST PATIENT NAME: Zack Langley AGE: 43 y.o. MR#: [id number] DATE OF VISIT: 01/02/2014 DATE OF INJURY/ONSET: Case Date: 12/02/2013 Surgeon: Surgeon(s) and Role: * Mihir Herrera MD - Primary * Florencio Davenport PA - Physician Service Center Assistant Preoperative diagnosis: Left DJD Postoperative diagnosis: Left DJD Procedure(s): @TOTAL KNEE ARTHROPLASTY MODIFIER: ATTUNE STABILIZED ROTATING PLATFORM Good4UUY STAFF: Today's covering physician is Dr. Herrera. [...] (98.7 ??F), height 180.3 cm (5' 11), tupidg807.554 kg (279 lb). Constitutional: oriented to person, [...] post-operative pain care, Dr. Jo Alves at [facility], to come up with a plan. Dr. [...] Primary documented in this encounter Care Teams Pool Servicer Relationship Specialty Start Date End Date Ashley Calixto MD [address] [place] [address] PCP - General 12/21/11 12/10/14 documented as of this encounter
--- OUTSIDE RECORDS SUMMARY | 2024-02-26 21:30 | XMS_ITS | Encounter Summary ---
Author Organization [facility] [address] Care Team Providers Care Burn Table Operator Name Role Phone Juani Singh MD Primary Care Provider [phone] Encounter Details Date Type Department Care Team (Late st Contact Info) Description 06/15/2015 10:00 AM EDT Office [place] [address] Vera Clark APRN [facility] [place] [address] Chronic hepatitis C without hepatic coma Social [...] this encounter Progress Notes * Vera Clark, RECREATION FACILITY MANAGER - 06/15/2015 10:10 AM EDT Hepatology Follow [...] Vibration Controlled Transient Elastography (VCTE) or Fibroscan [place] Protocol: Patient's identity, procedure and site were [...] daclatasvir, however we know that his insurance ([place] Medicaid) will not cover the medications based [...] Clark APRN Section of Gastroenterology [place] [address] 20 minutes of this 30 minute visit in face to face discussion regarding disease, prognosis and treatment ADDENDUM 06/19/15: Results for ZACK LANGLEY ( ) as of 06/19/2015 09:47 06/15/2015 11:35 Liver Fibrosis Panel FLEXITEST 3 (A) Alk Phos 69 AST 23 ALT 42 HCV Viral Load [id number] Hepatitis A Ab Positive (A) HepB Surface [...] coma documented in this encounter Care Teams Burn Table Operator Relationship Specialty Start Date End Date Juani Singh MD [address] [place] [address] PCP - General Family Medicine 12/11/14 documented as of this encounter
--- OUTSIDE RECORDS SUMMARY | 2024-02-26 21:30 | XMS_ITS | Encounter Summary ---
[place] [address] Care Team Providers Care Minilab Operator Name Role Phone Wendi Singh MD Primary Care Provider [phone] Reason for Visit * Reason Comments Medication Management Encounter Details Date Type Department Care Team (Late st Contact Info) Description 01/26/2018 Specialty [place] [address] Yaquelin Hutton Del Social History Tobacco Use [...] and Zack would like orders sent to [facility] in [place], [place]. We will follow-up with Zack a few daysafter he starts. The medication is currently being mailed to him. No recommendations at this time. Clinic Follow-up needed: no Allergies and Drug intolerance: Allergies Allergen Reactions ??? Isoniazid ? Rash... Special Dietary or Hydration Requirements: no There is no height or weight on file to calculate BMI. Medication Reconciliation Discrepancies (compared to [facility] med list) -none Medication Adherence Demonstrates understanding [...] beneficiary Provider: plan sponsor pharmacist Visit Type: [facility] Follow-up Method of Contact: [...] Assessment: Does the patient have a primary animal care supervisor? no Patient has emergency contact on file: Yes Does patient need referral to social security assessor:no Does patient need referral to advocacy group:no [...] were made at the appointment and that [facility] isproviding recommendations (summary located at top of note) for provider review and follow up. Yaquelin Lagunas RPH 01/26/18 4:00PM documented in this encounter Plan of Treatment Not on file documented as of this encounter Goals Goal Patient Goal Type Associated Problems Recent Progress Patient-Stated? Author DH Home Medication Compliance and Understanding Patient Facing Action Plan No Yaquelin Hutton [facility] Note: SVR12 through treatment with Mavyret. documented as of this encounter Visit Diagnoses Not on filedocumented in this encounter Care Teams Minilab Operator Relationship Specialty Start Date End Date Wendi Singh MD [address] [place] [address] PCP - General Family Medicine 12/11/14 documented as of this encounter
--- OUTSIDE RECORDS SUMMARY | 2024-02-26 21:30 | XMS_ITS | Encounter Summary ---
[place] [address] Care Team Providers Care Bakery Worker Name Role Phone Wendi Singh MD Primary Care Provider [phone] Reason for Visit * Reason Comments Medication Management Encounter Details Date Type Department Care Team (Late st Contact Info) Description 03/23/2018 Specialty [place] [address] Yaquelin Hutton Del Social History Tobacco Use [...] Comprehensive Medication Management (CMM) Zack Langley [address] [facility] [address] Telephone Information: Work Phone Not on file. [...] on filedocumented in this encounter Care Teams Bakery Worker Relationship Specialty Start Date End Date Wendi Singh MD [address] [place] [address] PCP - General Family Medicine 12/11/14 documented as of this encounter
--- OUTSIDE RECORDS SUMMARY | 2024-02-26 21:30 | XMS_ITS | Encounter Summary ---
[place] [address] Care Team Providers Care Senior Software Qa Analyst Name Role Phone Ashley Calixto MD Primary Care Provider [phone] Encounter Details Date Type Department Care Team (Latest Contact Info) Description 12/19/2013 Anti-Coag Telephone Visit [place] [address] Erica Park RN S/P total knee arthroplasty, [...] Therapeutic Range: 2.0-3.0 INR: 2.0 Drawn by: [facility] Patient presents with no signs of [...] Results * (ABNORMAL) External Lab Results (12/19/2013) INR, POC 2.0([facility]) 0.9 - 1.1 Comment:Renae RSOE Historical Provider CHEMISTRY ORDERAB LES documented in this encounter Visit Diagnoses Diagnosis S/P total knee arthroplasty, left documented in this encounter Care Teams Senior Software Qa Analyst Relationship Specialty Start Date End Date Ashley Calixto MD [address] [place] [address] PCP - General 12/21/11 12/10/14 documented as of this encounter
--- OUTSIDE RECORDS SUMMARY | 2024-02-26 21:30 | XMS_ITS | Encounter Summary ---
[place] [address] Care Team Providers Care Patient Advocate Name Role Phone Ashley Calixto MD Primary Care Provider [phone] Reason for Visit * Reason Onset Date Comments Medication Refill 12/27/2013 Encounter Details Date Type Department Care Team (Late st Contact Info) Description 12/27/2013 Refill [place] [address] Erica Park RN Knee joint replacement by [...] Primary documented in this encounter Care Teams Patient Advocate Relationship Specialty Start Date End Date Ashley Calixto MD [facility] [address] [facility] [address] [place] [address] PCP - General 12/21/11 12/10/14 documented as of this encounter
--- OUTSIDE RECORDS SUMMARY | 2024-02-26 21:30 | XMS_ITS | Encounter Summary ---
Author Organization [facility] [place] [address] Care Team Providers Care Respiratory Physician Name Role Phone Wendi Singh MD Primary Care Provider [phone] Reason for Visit * Reason Onset Date Comments Hepatitis C 04/05/2018 Encounter Details Date Type Department Care Team (Late st Contact Info) Description 04/05/2018 Telephone [place] [phone] Toya Gongora, RN Hepatitis C Social History [...] plans to have EOT blood draw at [facility] this weekend. Will anticipate results in about one week. documented in this encounter Plan of Treatment Not on file documented as of this encounter Goals Goal Patient Goal Type Associated Problems Recent Progress Patient-Stated? Author [facility] Medication Compliance and Understanding Patient Facing Action Plan Yaquelin Lau, [facility] Note: SVR12 through treatment with Mavyret. documented as of this encounter Visit Diagnoses Not on filedocumented in this encounter Care Teams Respiratory Physician Relationship Specialty Start Date End Date Wendi Singh MD [address] [place] [address] PCP - General Family Medicine 12/11/14 documented as of this encounter
--- OUTSIDE RECORDS SUMMARY | 2024-02-26 21:30 | XMS_ITS | Encounter Summary ---
[place] [address] Care Team Providers Care Prosthodontist Name Role Phone Ashley Calixto MD Primary Care Provider [phone] Encounter Details Date Type Department Care Team (Latest Contact Info) Description 12/26/2013 Anti-Coag Telephone [place] [phone] Yajaira Angel RN S/P total knee arthroplasty, [...] Results * (ABNORMAL) External Lab Results (12/26/2013) INR, POC 3.2(Externa l Lab) 0.9 - 1.1 12/26/2013 Historical Provider CHEMISTRY ORDERAB LES documented in this encounter Visit Diagnoses Diagnosis S/P total knee arthroplasty, left documented in this encounter Care Teams Prosthodontist Relationship Specialty Start Date End Date Ashley Calixto MD [facility] [address] [place] [address] PCP - General 12/21/11 12/10/14 documented as of this encounter
--- OUTSIDE RECORDS SUMMARY | 2024-02-26 21:30 | XMS_ITS | Encounter Summary ---
[place] [address] Care Team Providers Care Dispatcher Tow Truck Name Role Phone Ashley Calixto MD Primary Care Provider [phone] Encounter Details Date Type Department Care Team (Latest Contact Info) Description 12/16/2013 Anti-Coag Telephone [place] [address] Meghana Gleason, RN S/P total knee arthroplasty, [...] Therapeutic Range: 2.0-3.0 INR: 2.2 Drawn by: [facility] Patient presents with no signs of [...] Results * (ABNORMAL) External Lab Results (12/16/2013) INR, POC 2.2(Externa l Lab) 0.9 - 1.1 12/16/2013 Historical Provider CHEMISTRY ORDERAB LES documented in this encounter Visit Diagnoses Diagnosis S/P total knee arthroplasty, left documented in this encounter Care Teams Dispatcher Tow Truck Relationship Specialty Start Date End Date Ashley Calixto MD [address] [place] [address] PCP - General 12/21/11 12/10/14 documented as of this encounter
--- OUTSIDE RECORDS SUMMARY | 2024-02-26 21:30 | XMS_ITS | Encounter Summary ---
Author Organization [facility] [place] [address] Care Team Providers Care Mortician Helper Name Role Phone Ashley Calixto MD Primary Care Provider [phone] Reason for Visit * Reason Onset Date Comments Medication Refill 12/20/2013 Encounter Details Date Type Department Care Team (Late st Contact Info) Description 12/20/2013 [place] [address] Mihir Herrera MD [facility] [place] [address] Knee joint replacement by other means (Primary [...] 12/20/2013 11:07 AM EDT Patient Name: Zack Langley : [id number] MR#: [id number] Case Date: 12/02/2013 Surgeon: Surgeon(s) and Role: * Mihir Herrera MD - Primary * Florencio Davenport PA - Physician Broomcorn Scraper Preoperative diagnosis: Left DJD Postoperative diagnosis: Left [...] YES. Best number to reach person calling? [phone] The nurse will call you when your prescription is ready, please allow up to 72 hrs for processing. documented in this encounter Plan of Treatment Not on file documented as of this encounter Visit Diagnoses Diagnosis Knee joint replacement by other means- Primary documented in this encounter Care Teams Mortician Helper Relationship Specialty Start Date End Date Ashley Calixto MD [address] [place] [address] PCP - General 12/21/11 12/10/14 documented as of this encounter
--- OUTSIDE RECORDS SUMMARY | 2024-02-26 21:30 | XMS_ITS | Encounter Summary ---
Author Organization [facility] [place] [address] Care Team Providers Care Quilting Supervisor Name Role Phone Ashley Calixto MD Primary Care Provider [phone] Encounter Details Date Type Department Care Team (Late st Contact Info) Description 06/05/2014 12:30 PM EDT Follow-Up Occupational Therapy at [address] [address] Bertin Gamez, [facility] [place] [address] Mihir Herrera MD [facility] [place] [address] S/P total knee arthroplasty, left Discharge Disposition: [...] Zack Langley REQUESTED BY Dr. Mihir Herrera [facility] department of o [address] [place] [address] PREPARED BY Bertin Gamez KIERSTEN [id number] [place] [address] P: [phone] ASSESSED 06/05/2014 TABLE OF CONTENTS Summary Report 1 Client Profile 1 Standardized Testing 1 Physical Effort Testing 1 Reliability of Pain And Disability Reports Testing 1 Dexterity Testing 1 Gis Scientist Strength and Handling Testing 1 Fitness Testing [...] not reliable, is there a pattern to wwaf-qgsu-ciuoyoqs reports? 3. What are Mr. Antonios physical [...] needed. Recommendations 1 Mr. Langley can tolerate [employer] employment at a sedentary physical demand level [...] conditioning program similar to the one at [facility] two hours per day three days per [...] Langley. Signed, Bertin Gamez , OT/L CE [facility] [id number] [place] [address] P: [phone] FUNCTIONAL CAPACITY EVALUATION SUPPORTING DOCUMENTATION Client ProfileCLIENT [...] with high levels of physical effort, an electro tech cannot be confident that observed performances represent current abilities. Five-Position Gis Scientist Testing Mr. Langley underwent a formal screening [...] of Mr. Langley's testing are presented below: Gis Scientist Span Test 1 Test 2 Test 3 Dom Non Dom Non Dom Non 1 54 37 33 38 39 53 2 110 79 93 84 90 84 3 105 92 95 84 98 98 4 98 67 98 72 98 75 5 78 66 79 65 76 65 Gis Scientist Span Coefficient of Variation Exceed Cut Point? [...] maximum voluntary effort during testing. During the local bulk driver strength test, the client was noted to show no signs of physical discomfort. Mr. Langley was observed to demonstrate the following signs of competitive test performance during local bulk driver strength testing: Muscular recruitment; Requesting to continue when advised to stop; Increased compensatory postures to improve force Gis Scientist Curve Analysis A second method of screening [...] Right Upper Extremity: Mr. Maurer right hand local bulk driver scores, produced a well distributed gonzalez curve(S.D. = 21.98). Clinical studies suggest this standard deviation to be indicative of a high level of effort. Left Upper Extremity: Mr. Maurer left hand local bulk driver scores, produced a well distributed gonzalez curve (S.D. = 16.59). Clinical studies suggest this standard deviation to be indicative of a high level of effort. Competitive Test Performance?? [place]-trained functional capacity evaluators are trained to look [...] analysis was used throughout his testing day. [place]-trained work capacity evaluators are trained to look [...] first percentile compared to air force norms Gis Scientist Strength and Handling TestingGRIP STRENGTH AND HANDLING TESTING Five-Position Gis Scientist Testing As a function of hand dynamometer testing, information about the client's local bulk driver strength was collected. Dominant Non-Dominant Client Norm Group Client Norm Group 97.67 109.9 82.33 100.8 Results are in pounds. As can be seen from this table, the client demonstrates the dominant hand asbeing similar to the normative group. His non-dominant hand demonstrates as being similar to the normative group. During the local bulk driver strength test, the client was noted to show no signs of physical discomfort. Mr. Langley was observed to demonstrate the following signs of competitive test performance during local bulk driver strength testing: Muscular recruitment; Requesting to continue [...] safe heart rate. Modified Domenico Treadmill Test [place]-trained evaluators use the Modified Domenico protocol as [...] Flexion Left Side Right Side FPS Active Ejggl-mf-Cihquk Limited Ability: 130 Limited Ability: 130 Left Side Right Side FPS Resisted Painful and Weak Ability: 4-/5 Within Functional Limits Extension Left Side Right Side FPS Active Qujfe-cv-Dahnsu Limited Ability: -2 Limited Ability: 0 Left [...] left documented in this encounter Care Teams Quilting Supervisor Relationship Specialty Start Date End Date Ashley Calixto MD [address] [place] [address] PCP - General 12/21/11 12/10/14 documented as of this encounter
--- OUTSIDE RECORDS SUMMARY | 2024-02-26 21:30 | XMS_ITS | Encounter Summary ---
Author Organization [facility] [place] [address] Care Team Providers Care Foundry Finisher Name Role Phone Ashley Calixto MD Primary Care Provider [phone] Reason for Visit * Reason Comments Aftercare Of Tjr s/p left tka dos 12/02/13 wc doi 12/30/10 Encounter Details Date Type Department Care Team (Late st Contact Info) Description 04/03/2014 3:40 PM EST Office Visit [place] [address] Mihir Herrera MD [facility] [place] [address] S/P total knee arthroplasty, left Discharge Disposition: [...] this encounter Progress Notes * Michelle Kim, SUBSTATION DESIGN DRAFTSPERSON - 04/03/2014 4:40 PM EST PATIENT NAME: Zack Langley AGE: 43 y.o. 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
--- OUTSIDE RECORDS SUMMARY | 2024-02-26 21:30 | XMS_ITS | Encounter Summary ---
Author Organization [facility] [place] [address] Care Team Providers Care Car Pusher Name Role Phone Ashley Calixto MD Primary Care Provider [phone] Reason for Visit * Reason Onset Date Comments Medication Refill 12/23/2013 Encounter Details Date Type Department Care Team (Late st Contact Info) Description 12/23/2013 [place] [address] Mihir Herrera MD [facility] DR ORTHOPAED[place] [address] Medication Refill Social History Tobacco Use Types [...] BUT REQUESTED THAT WE CALL ZACK DIRECTLY [phone] The nurse will call you when your prescription is ready, please allow up to 72 hrs for processing. documented in this encounter Plan of Treatment Not on file documented as of this encounter Visit Diagnoses Not on filedocumented in this encounter Care Teams Car Pusher Relationship Specialty Start Date End Date Ashley Calixto MD [address] [place] [address] PCP - General 12/21/11 12/10/14 documented as of this encounter
--- OUTSIDE RECORDS SUMMARY | 2024-02-26 21:31 | XMS_ITS | Encounter Summary ---
[place] [address] Care Team Providers Care Director Informatics Name Role Phone Ashley Calixto MD Primary Care Provider [phone] Reason for Visit * Reason Onset Date Comments Referral 11/22/2013 Encounter Details Date Type Department Care Team (Late st Contact Info) Description 11/22/2013 Telephone [place] [address] Charla Parker Referral Social History Tobacco Use [...] on filedocumented in this encounter Care Teams Director Informatics Relationship Specialty Start Date End Date Ashley Calixto MD [address] [place] [address] PCP - General 12/21/11 12/10/14 documented as of this encounter
--- OUTSIDE RECORDS SUMMARY | 2024-02-26 21:31 | XMS_ITS | Encounter Summary ---
Author Organization [facility] [place] [address] Care Team Providers Care Kiln Maintenance Name Role Phone Ashley Calixto MD Primary Care Provider [phone] Encounter Details Date Type Department Care Team (Late st Contact Info) Description 09/18/2013 2:15 PM EDT - 09/18/2013 11:59 PM EDT Hospital Encounter XRay at [address] [place] [address] Left knee pain Social History Tobacco Use [...] joint space narrowing at the rightknee. Lj Braedn MD IMG DX ORDERABLES documented in this encounter Visit Diagnoses Diagnosis Left knee pain Pain in joint, lower leg documented in this encounter Care Teams Kiln Maintenance Relationship Specialty Start Date End Date Ashley Calixto MD [address] [place] [address] PCP - General 12/21/11 12/10/14 documented as of this encounter
--- OUTSIDE RECORDS SUMMARY | 2024-02-26 21:31 | XMS_ITS | Encounter Summary ---
[place] [address] Care Team Providers Care Maintenance Scheduler Name Role Phone Ashley Calixto MD Primary Care Provider [phone] Encounter Details Date Type Department Care Team (Late st Contact Info) Description 12/11/2013 Orders [place] [address] Meghana Gleason, RN Knee joint replacement by [...] Primary documented in this encounter Care Teams Maintenance Scheduler Relationship Specialty Start Date End Date Ashley Calixto MD [address] [place] [address] PCP - General 12/21/11 12/10/14 documented as of this encounter
--- OUTSIDE RECORDS SUMMARY | 2024-02-26 21:31 | XMS_ITS | Encounter Summary ---
Author Organization [facility] [address] Care Team Providers Care Director Of Career Resources Name Role Phone Ashley Calixto MD Primary Care Provider [phone] Reason for Visit * Reason Comments Left Knee Pain knee pain Encounter Details Date Type Department Care Team (Latest Contact Info) Description 10/03/2013 9:50 AM EDT Office Visit [place] [address] Mihir Herrera MD [facility] [place] [address] Osteoarthritis of knee (Primary Dx) Discharge Disposition: [...] meniscectomy [place] [address] Fagan in [facility]. He has continued to have left [...] Metabolic Panel (non-fasting) (11/21/2013 11:50 AM EDT) [facility] Glucose 159 60 - 199 mg/dL CERNER MILLENNIUM Comment:Diabetes: >=200 mg/d L plus symptoms Blood Urea Nitrogen 9(L) 10 - 20 mg/dL CERNER MILLENNIUM [...] - 107 mmol/L CERNER MILLENNIUM Carbon Dioxide 26 22 - 31 mmol/L CERNER MILLENNIUM Anion Gap 13 5 - 15 mmol/L CERNER MILLENNIUM Calcium 9.4 8.5 - 10.5 mg/dL CERNER MILLENNIUM Est Glomerular Filtration Rate [...] the following links into your internet browser. [email or web address] Blood specimen (specimen) 11/21/2013 11:50 AM EDT 11/21/2013 12:00 PM EDT Narrative Resulting Agency Comment Spec In Lab Mihir Herrera MD CHEMISTRY ORDERABLES RANDY MORALES documented in this encounter Visit Diagnoses Diagnosis Osteoarthritis of knee- Primary Osteoarthrosis, unspecified whether generalized or localized, lower leg Osteoarthritis of knee Osteoarthrosis, unspecified whether generalized or localized, lower leg documented in this encounter Care Teams Director Of Career Resources Relationship Specialty Start Date End Date Ashley Calixto MD [address] [place] [address] PCP - General 12/21/11 12/10/14 documented as of this encounter
--- OUTSIDE RECORDS SUMMARY | 2024-02-26 21:31 | XMS_ITS | Encounter Summary ---
Author Organization Formerly [facility] [place] [address] Care Team Providers Care Group Home Manager Name Role Phone Reece Calixto MD Primary Care Provider [phone] Encounter Details Date Type Department Care Team (Late st Contact Info) Description 12/02/2013 7:30 AM EDT - 12/02/2013 9:58 AM EDT [place] [id number] Charis Herrera MD [facility] [place] [address] TOTAL KNEE ARTHROPLASTY (WRVU 19.6) Social History [...] knee for comfort. You should wear the HLAEY hose to knee bilaterally until you are [...] The INR should be reported to the [facility] Ortho clinic at [phone], and you will be informed of any [...] sennakot, to factilitate a bowel movement. An atze-jkk-lyjmqhe medication, miralax can also beused if needed [...] 1. You will have followup appointments at [facility] as indicated in Future Appointments and Orders. You will have an xray prior to those appointments so please come to Radiology, desk 3T, 1 hour BEFORE your appointment for those x- rays. (at 9:10 am on Jan 02) Future Appointments Date Time [facility] Department Center 01/02/2014 10:10 AM Charis Herrera [...] Alves on December 10 at 9:15 at [facility]. 3. Keep you appointment with you [...] Patient discharged home with VNA services from [facility]. Paperwork faxed to [facility]. * Chu Castro RN - 12/05/2013 3:19 PM EDT Chart reviewed and met with pt who is ready for d/c home. Pt requests [facility] for services. I explained to pt that his WC info was mad available by EVARISTO Ha in OCM at [facility] and I would give this info to [facility] to see if they can get payment [...] sitting in a chair comfortably. His fentanyl ECONOMIC DEVELOPER was discontinued and he had been wearing [...] ATKINSON MD 12/05/2013 Acute Pain Service Pager: [phone] I have seen and examined the patient, providing arceo components as outlined below. I have reviewed the resident???s above note; my evaluation of the patient is below: I was presnt through the fellows evaluation and plans and agree with them. * Ihsan Islas, WET MACHINE CUTTER - 12/05/2013 12:35 PM EDT Physical Therapy [...] ARTHROPLASTY performed by Charis Herrera MD at [facility] MAIN OR Social History: Patient lives with his GF and 2 young boys and 2 teenagers. 1 flight of stairs to enter. Ind amb WET MACHINE CUTTER Precautions/Special Considerations: WBAT R L/E Post-operative course: [...] 30 minutes for therapeutic functional IHSAN ISLAS, WET MACHINE CUTTER Pager: [phone] * Florencio Davenport PA - 12/05/2013 7:30 [...] extremity: Weight bearing as tolerated Wound closure: Phoenix (remove 10-14 days) Dressing changes: Mepilex Silver [...] 12/30/2010 To: L Knee/Low Back Employer: [employer] Ins. Co.: [place] Claim: [id number] Casing Crew: Idalia Chauhan NCM: No NCM as of 12/04/2013 * Tri Briceño RN - 12/04/2013 2:44 PM EDT This is a 43 yo gentleman who underwent L TKA with Dr Herrera on 12/03/13. Pt has [place] [employer] insurance listed however pt explains this is workers comp thru [place]. CRC confirming information. Met with pt his SO and 2 young children this afternoon. He is OOB and has IV in place at this time. Pain reports mod at this time. Patient lives with his GF and 2 young boys and 2 teenagers. 1 flight of stairs to enter. Ind amb WET MACHINE CUTTER Pt is motivated and has made good progress with PT. We discussed need for FWW for use at home and he has no preference for vendor although IF WC- they may have specific vendors they prefer. Will await confirmation of WC before completing VNA and DME orders. ADDENDUM: Received confirmation WC. Tel Call to field automobile adjuster Casing Crew: Idalia Chauhan We discussed she has approved securing FWW and 3 in 1 commode from [facility] facility to avoid delay in d/c. She will confirm appropriate in network VNA services. Provided WC with contact info for Chu Castro RN who will be following pt tomorrow. Will secure DME VNA orders still need to be completed once agency finalized. * Ihsan Islas, WET MACHINE CUTTER - 12/04/2013 1:18 PM EDT Physical Therapy [...] ARTHROPLASTY performed by Charis Herrera MD at [facility] MAIN OR Social History: Patient lives with his GF and 2 young boys and 2 teenagers. 1 flight of stairs to enter. Ind amb WET MACHINE CUTTER Precautions/Special Considerations: WBAT R L/E Post-operative course: Uneventful Subjective: Patient states ???I want to keep up with my exercises and walks even though the pain ishigh at times!?? Objective: Vitals: SpO2: WNL, HR WNL Most recent Hgb value: 10.3 Pain: Moderate to severe with exercises, moderate with ambulation, ECONOMIC DEVELOPER x 2 Strength: 3/5, LAQ Functional Mobility: [...] treatment: 25 minutes for therapeutic functional IHSAN ILSAS PTA Pager: [phone] * Florencio Davenport PA - 12/04/2013 6:56 [...] of fentanyl and placed on a fentanyl ECONOMIC DEVELOPER with improved control. He has a history [...] of fentanyl and placed on a fentanyl ECONOMIC DEVELOPER with improved control now. Recommendations: Pending APS consult Weight bearing status of operative extremity: Weight bearing as tolerated Wound closure: Phoenix (remove 10-14 days) Dressing changes: Mepilex Silver [...] 2 doses of fentanyl 50mcg administered and ECONOMIC DEVELOPER of dilaudid started. Pt stated ECONOMIC DEVELOPER of dilaudid was ineffective. MD notified and ECONOMIC DEVELOPER switched to fentanyl and one time 75 [...] bolus doses of fentanyl and a dilaudid ECONOMIC DEVELOPER with essentially maximum settings for pain control. This morning his ECONOMIC DEVELOPER was d/c'd and his femoral nerve catheter [...] he was put back on the dilaudid ECONOMIC DEVELOPER. He continued to complain of extreme pain and appeared uncomfortable and his ECONOMIC DEVELOPER settings were adjusted multiple times until he was on maximum dilaudid ECONOMIC DEVELOPER settings. He received a 75mcg bolus of fentanyl, which provided some relief. His diluadid ECONOMIC DEVELOPER was d/c'd and he was placed on a fentanyl ECONOMIC DEVELOPER with a 25mcg demand dosewhich finally controlled [...] control was eventually achieved with a fentanyl ECONOMIC DEVELOPER with high settings. Plan: - APS consult in the morning - continue fentanyl ECONOMIC DEVELOPER until adequate PO regimen is established - discussed with orthopedic surgery senior resident Melany Acevedo MD PGY-1 Pager #[phone] 12/04/2013 1:21 AM * Jose Juan Moon [...] list reviewed Assessment: Peripheral nerve catheter and ECONOMIC DEVELOPER for post-operative pain control, currently with good pain control. Patient being transitioned to oral pain medications. Patient requests d/c of FNC. Plan: ?? Peripheral nerve catheter was removed. Tip was intact. No bleeding, hematoma or erythema at the insertion site. ?? Patient was instructed to contact Regional Anesthesia Team ([id number]) for any unresolved sensory or motor deficits. ?? Thank you for the opportunity to have participated in the care of this patient. JOSE JUAN MOON MD Regional Team pager [phone] * Charis Herrera MD - 12/03/2013 6:54 [...] oral oxycodone to dilaudid and will maintain ECONOMIC DEVELOPER for now until good pain control achieved with oral meds. The patient may need switch from oral oxycodone to dilaudid and will maintain ECONOMIC DEVELOPER for now until good pain control achieved with oral meds. Drain was removed, with discontinue IVF and Laurent catheter Weight bearing status of operative extremity: Weight bearing as tolerated Wound closure: Phoenix (remove 10-14 days) Dressing changes: Mepilex Silver [...] Note Patient: Zack Sousa s/p Surgery: 12/02/2013 [id number] Procedure(s) (LRB): @TOTAL KNEE ARTHROPLASTY (Left) MODIFIER: ATTUNE STABILIZED ROTATING PLATFORM DEPUY (Left) Surgeon(s) and Role: * Charis Herrera MD - Primary * Florencio Davenport PA - Physician Office Engineer: 2 Hr 16 Min 40 Sec * [...] intact. Pain 5/10 at this time, dilaudid ECONOMIC DEVELOPER controlling pain. Pt has dangled on edge [...] at this time, 1x block and dilaudid ECONOMIC DEVELOPER controlling pain. Patient oriented to room, call [...] Zack Sousa Patient Age: 43 y.o. Language: Bulgarian Race: White Ethnicity: Not nor Admit date: 12/02/2013 Discharge date and time: 12/05/2013 Attending Physician: Charis Herrera MD Discharge Physician: Charis Herrera MD Follow-up Recommendations for Providers: Please see patient discharge instructions for additional details. Future Appointments Date Time Provider Department Center 01/02/2014 10:10 AM Charis Herrera MD [facility] None Inpatient Provider Contact Information: Charis Herrera MD Joints: [phone] After hours and weekends, call [facility] Director Of Automation, , and have Orthopedic resident paged. Discharge [...] Primary * Florencio Davenport PA - Physician Office Engineer History of Presentation: The patient presented to [...] surgical site was marked with a green tejon in the pre-op area Hospital Course: The [...] Rate: [95-106] Blood Pressure BP: 129/65 mmHg @dzqkrwi55@ Respiratory Rate Resp: 16 Resp: [16-19] SpO2 [...] The INR should be reported to the [facility] Ortho clinic at [phone], and you will be informed of any [...] sennakot, to factilitate a bowel movement. An rlyz-iwx-brdlamp medication, miralax can also beused if needed [...] 1. You will have followup appointments at [facility] as indicated in Future Appointments and Orders. [...] Alves on December 10 at 9:15 at [facility]. 3. Keep you appointment with you physician who prescribes your suboxone on December 16. He will direct your restart. Future Appointments and Orders Future Appointments: Provider: Department: Dept Phone: Center: 01/02/2014 10:10 AM Charis Herrera MD Orthopaedics [phone] None Joint Appt Questionnaire [facility] Orthopa[facility]ics [phone] None Future Orders Please Complete By Expires Referral for Anticoagulation Monitoring [[id number] Custom] Process Instructions: If no progress note charted, please enter Clinical details in comments. Scheduling Instructions: Comments: Questions: Responses: My question or request is: patient going with lovenox bridge. Risk Factors: Responsible Group [facility] ANT[facility]AG Next due INR 12/06/2013 INR Goal Target End Date 12/30/2013 Referral to Home Health - at DISCHARGE [IBR7041 CPT(R)] Process Instructions: Scheduling Instructions: Comments: [facility]. PHONE: [phone] FAX: [phone] DISCHARGE DOCUMENTATION FOR VNA SERVICES (INCLUDING THOSE PATIENTS WITH MEDICARE COVERAGE BEING DISCHARGED HOME WITH VNA SERVICES AND THOSE PATIENTS WITH MEDICARE COVERAGE WHO ARE BEING DISCHARGED HOME WITH HOSPICE SERVICES) Zack Sousa [address] [facility] [phone] (home) Telephone Information: Molder Shoulder Pad: In discussion with the attending physician, it is certified that this patient is under their care and that they, or a nurse practitioner, clinical nurse specialist or physician's assistant mechanic who is working directly with them, had [...] for home health services. HOME HEALTH AGENCY: [facility] Home care orders for Total KneeArthroplasty: 1.RN: Draw PT/INR as follows: PER MD ORDERS. Please draw INR daily until INR is 1.4 or greater. Patient will need lovenox injection if INR is less than 1.4 Thereafter, PT/INR: every Monday and PT/INR results to be called and faxed as follows Mon-Mon Ortho anticoagulation (Coumadin) clinic @ [facility]: ; Sat/Sun: if the PT/INR is drawn on the weekend, call the results to the Orthopedic Resident on callat [phone] for Coumadin dose Point of care testing [...] from this patient's PCP: REECE CALIXTO MD [facility] [address] [place] [address] All A agencies which cover the area of patient's residence have been reviewed, either verbally tamir writing, and patient/family have chosen the indicated home health care agency for home services. Questions: Responses: Agency name and contact information [facility] Patient location post discharge home What services are requested Registered Nurse Physical Therapy Start date Responsible MD post discharge contact info Primary Care Provider: REECE CALIXTO MD [phone] * Initial Assessments - Omega Orellana, OT [...] ARTHROPLASTY performed by Charis Herrera MD at [facility] MAIN OR Social History: Social History: Patient [...] minutes Total timed interventions: 0 minutes Pager: [phone] OMEGA ORELLANA OT 12/05/2013 Occupational Therapy Rehabilitation Department * Consult Note - Abran Chun MD - 12/04/2013 11:05 AM EDT Acute Pain Service Consultation Pt Age: 43 y.o. Date of Consultation: 12/04/2013 Consult Service: Orthopedics Place of Service: [facility] Responsible Attending: Javier Hayden/Associate Provider: Lamar Consultation [...] oral pain meds along with a dilaudid ECONOMIC DEVELOPER. He was placed on a fentanyl ECONOMIC DEVELOPER the morning of 12/04 and has since [...] ARTHROPLASTY performed by Charis Herrera MD at [facility] MAIN OR ADR/Allergies: Allergies Allergen Reactions ??? [...] Intravenous, Q1 Min PRN, Orlando Acevedo MD; ECONOMIC DEVELOPER arceo, , Intravenous, Continuous PRN, Orlando Aecvedo MD; fentaNYL 50 mcg/mL ECONOMIC DEVELOPER 30 mL, , Intravenous, PCAOnly, Orlando Acevedo MD; warfarin (COUMADIN) tablet 7.5 mg, 7.5 mg, Oral, Once, Lis Cameron,BLANKET FOLDER; [COMPLETED] enoxaparin (LOVENOX) injection 40 mg, 40 mg, Subcutaneous, Once, Lis Cameron, BLANKET FOLDER, 40 mg at 12/04/13 1055 diaZEPam (VALIUM) tablet 5 mg, 5 mg, Oral, Q6H PRN, Lis Cameron, BLANKET FOLDER; [DISCONTINUED] HYDROmorphone (DILAUDID) 1 mg/mL ECONOMIC DEVELOPER 30 mL, , Intravenous, ECONOMIC DEVELOPER Only, Orlando Acevedo MD; [DISCONTINUED] fentaNYL 50 mcg/mL ECONOMIC DEVELOPER 30 mL, , Intravenous, ECONOMIC DEVELOPER Only, Orlando Acevedo MD, 1,500 mcg at 12/04/13 0050; [COMPLETED] warfarin (COUMADIN) tablet 5 mg, 5 mg, Oral, Once, Ethel, Florencio D, PA, 5 mg at 12/03/13 1719 [COMPLETED] HYDROmorphone (DILAUDID) injection 0.5 mg, 0.5 mg, Intravenous, Once, Lis Cameron,BLANKET FOLDER, 0.5 mg at 12/03/13 1419; [COMPLETED] fentaNYL [...] 5 mg, Oral, Q3H PRN, Lis Cameron, BLANKET FOLDER; [DISCONTINUED] oxyCODONE (ROXICODONE) immediate release tablet 10 mg, 10 mg, Oral, Q3H PRN, Lis Cameron P, BLANKET FOLDER; [DISCONTINUED] oxyCODONE (ROXICODONE) immediate release tablet 15 mg,15 mg, Oral, Q3H PRN, Lis Cameron P, BLANKET FOLDER, 15 mg at 12/03/13 1125 [DISCONTINUED] HYDROmorphone (DILAUDID) injection 0.5 mg, 0.5 mg, Intravenous, Once, Alva Cameron, BLANKET FOLDER; [DISCONTINUED] HYDROmorphone (DILAUDID) tablet 2-6 mg, 2-6 mg, Oral, Q3H PRN, Lis Cameron, BLANKET FOLDER, 6 mg at 12/03/13 1751; [DISCONTINUED] HYDROmorphone (DILAUDID) 1 mg/mL ECONOMIC DEVELOPER 30 mL, , Intravenous, ECONOMIC DEVELOPER Only, Orlando Acevedo MD, 30 mg at 12/03/13 2130 [DISCONTINUED] diphenhydrAMINE (BENADRYL) injection 25 mg, 25 mg, Intravenous, Q30 Min PRN, Orlando Acevedo MD; [DISCONTINUED] prochlorperazine (COMPAZINE) injection 5 mg, 5 mg, Intravenous, Q30 MinPRN, Orlando Acevedo MD; [DISCONTINUED] nalOXone (NARCAN) injection 0.2 mg, 0.2 mg, Intravenous, Q1 Min PRN, Orlando Acevedo MD; [DISCONTINUED] ECONOMIC DEVELOPER arceo, , Intravenous, Continuous PRN, Tiny Acevedo MD [DISCONTINUED] HYDROmorphone (DILAUDID) 1 mg/mL ECONOMIC DEVELOPER 30 mL, , Intravenous, ECONOMIC DEVELOPER Only, Orlando Acevedo MD; ROpivacaine (NAROPIN) 2 [...] Rectal, Daily PRN, Florencio Davenport, PA; multivitamin Kejw-Sz-LO-Min (THERAPEUTIC-M) 27-0.4 mg tablet 1 tablet, 1 [...] and sober since 03/10. Hx IV drugs [id number]. Hx intranasal drugs [id number]. ??? 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 He injured left knee and underwent arthroscopy in February. Knee is not getting better. He continues to be out on worker's compensation.He has hx of IVDU [id number] 2012Hx of intranasal drug use 1986-1999Has 2 tattoos he received in [facility]pc in 1989 and 1999.Pierced ear in 1992 at home, shared needles.He sees psychiatrist, Dr. Baron, in [facility].He sees drug counselor Yanira Chahal x [...] take full effect) 3. Stop the fentayl ECONOMIC DEVELOPER 6 hours after applying the patch 4. Start oxycodone 5-15mg every 3-4 hours I have discussed with the pt the risks and side effects of opioid medications that include, but arenot limited to: mcfp abuse potential, constipation and sexual dysfunction. Consult service will continue to follow patient. Recommendations are above, please page if further consultation required. HECTOR ATKINSON MD 12/04/2013 # [id number] beeper # [phone]- APS I have seen [...] states pain is a 6/10. Administered fentanyl ECONOMIC DEVELOPER. Will continue to monitor. * Plan of [...] Clinical Practice Guideline (CPG) Patient tolerating fentanyl ECONOMIC DEVELOPER well with settlings 25 mcg/7 min/1500 mcg. [...] ARTHROPLASTY performed by Charis Herrera MD at [facility] MA[facility] OR Social History: Patient lives with his GF and 2 young boys and 2 teenagers. 1 flight of stairs to enter. Ind amb WET MACHINE CUTTER Precautions/Special Considerations: WBAT R L/E Post-operative course: [...] treatment: 0 minutes janelle WU, PT Pager: [phone] * Plan of Care - Elfego Garcia [...] states pain is a 3/10. Administered dilaudid ECONOMIC DEVELOPER and oral oxycodone. Will continue to monitor. [...] reports no relief from scheduled tylenol, dilaudid ECONOMIC DEVELOPER and oxycodone 15mg. paged, in to see pt and new orders given. Dilaudid ECONOMIC DEVELOPER dose increased and one time order for [...] Herrera MD - 12/02/2013 9:39 AM EDT [facility] Operative Note Patient Name: Zack Sousa : [id number] MR#: [id number] Case Date: 12/02/2013 Surgeon: Surgeon(s) and Role: * Charis Herrera MD - Primary * Florencio Davenport PA - Physician Office Engineer Preoperative diagnosis: Left DJD Postoperative diagnosis: [...] Implant Name Type Inv. Item Serial No. Mechanical Project Engineer Lot No. LRB No. Used Action CEMENT,BNE,CMW 1,GNTA,40GM ([id number]) - [id number] IMPLANTS CEMENT,BNE,CMW 1,GNTA,40GM ([id number]) Depuy Wood Turning Lathe Operator - [id number] Left 1 Implanted TRAY,ATTUNE,RP,TIB,BASE,SZ7 ([id number]) (AUTOREQ) - [id number] IMPLANTS TRAY,ATTUNE,RP,TIB,BASE,SZ7 ([id number]) (AUTOREQ) Depuy Wood Turning Lathe Operator - [id number] Left 1 Implanted INSER,ATTUNE,PS,FEM,SZ7,LT ([id number]) (AUTOREQ) - [id number] IMPLANTS INSER,ATTUNE,PS,FEM,SZ7,LT ([id number]) (AUTOREQ) Depuy Wood Turning Lathe Operator - [id number] Left 1 Implanted DIXON,KIRILL ARCHER,KOKO,41MM ([id number]) (AUTOREQ) - [id number] IMPLANTS DIXON,KIRILL ARCHER,KOKO,41MM ([id number]) (AUTOREQ) Depuy Wood Turning Lathe Operator - [id number] Left 1 Implanted INSER,ATTUNE,PS,RP,SZ7,7MM ([id number]) (AUTOREQ) - [id number] IMPLANTS INSER,ATTUNE,PS,RP,SZ7,7MM ([id number]) (AUTOREQ) Qustodio Tech - [id number] Left 1 Implanted COMPLICATIONS: None. SPECIMENS: Bone [...] surgical site was marked with a green tejon in the pre-op area. DESCRIPTION OF PROCEDURE: [...] mallet. Excess cement was removed with a Kneeland. We then placed the cement onto the anterior and distal aspects of the femur. The cement was placed on the posterior aspect of the prosthetic condyles. The femoral component was then placed and impacted into position. Excess cement was removed with a Kneeland. The polyethylene trial was then placed and the knee brought out to full extension where it was held for the entire polymerization time. Cement was then pressurized into the patellar bone and the patellar component placed. The patella was clamped. Excess cement was removed with a Kneeland. After all cement had hardened, the knee [...] the anesthesiology staff [facility] Sequential compression devices were placed. The [...] 12/05/2013 4:35 AM EDT BASIC METABOLIC PANEL Routine 12/05/2013 4:35 AM EDT POCT GLUCOSE [...] 12/04/2013 3:54 AM EDT BASIC METABOLIC PANEL Routine 12/04/2013 3:54 AM EDT POCT GLUCOSE [...] 12/03/2013 4:21 AM EDT BASIC METABOLIC PANEL Routine 12/03/2013 4:21 AM EDT POCT GLUCOSE [...] * POCT Glucose (12/05/2013 4:18 PM EDT) Glucose, POC 89 60 - 199 mg/dL [facility] Comment: Supplemental ranges: <140 mg/dL before meals <180 mg/dL all other times of the day Blood specimen (specimen) 12/05/2013 4:18 PM EDT 12/05/2013 4:18 PM EDT Charis Herrera MD POINT OF CARE TEST O HARINDER Performing Organization Address [facility] de Phone Number [facility] * POCT Glucose (12/05/2013 11:35 AM EDT) Glucose, POC 100 60 - 199 mg/dL [facility] Comment: Supplemental ranges: <140 mg/dL before meals <180 mg/dL all other times of the day Blood specimen (specimen) 12/05/2013 11:35 AM EDT 12/05/2013 11:35 AM EDT Charis Herrera MD POINT OF CARE TEST O HARINDER Performing Organization Address [facility] de Phone Number [facility] * POCT Glucose (12/05/2013 7:07 AM EDT) Glucose, POC 105 60 - 199 mg/dL [facility] Comment: Supplemental ranges: <140 mg/dL before meals <180 mg/dL all other times of the day Blood specimen (specimen) 12/05/2013 7:07 AM EDT 12/05/2013 7:07 AM EDT Charis Herrera MD POINT OF CARE TEST O RDERATESSA Performing Organization Address [facility] de Phone Number [facility] * (ABNORMAL) Differential, Automated (12/05/2013 4:35 AM EDT) Neutrophil % 54.5 % [facility] Neutrophil Absolute 7.23(H) 1.50 - 6.30 x10(3)/mc L [facility] Lymph % 35.0 % [facility] Lymphocytes Abs 4.6(H) 1.0 - 3.6 x10(3)/mc L [facility] MILLENNI[facility] Monocyte % 8.2 % [facility] Monocyte Abs 1.1(H) 0.2 - 1.0 x10(3)/mc L [facility] MILLENNIUM Eos % 1.6 % [facility] Eosinophils Abs [...] differential will be performed. Immature Gran Absolute 0.04 0.00 - 0.05 x10(3)/mc L [facility] MILLENNIUM Blood specimen (specimen) 12/05/2013 4:35 AM EDT 12/05/2013 4:43 AM EDT Narrative Resulting Agency Comment Spec In Lab Charis Herrera MD HEMATOLOGY ORDERABLE S [facility] * (ABNORMAL) Hemogram (12/05/2013 4:35 AM EDT) White Blood Cell 13.3(H) 4.0 - 10.0 x10(3)/mc L [facility] MILLENNI[facility] Red Blood Cell 3.72(L) 4.63 - 6.08 x10(6)/mc L [facility] MILLENNI[facility] Hemoglobin 11.1(L) 13.7 - 17.5 gm/dL [facility] Hematocrit 32.2(L) 40.0 - 51.0 % [facility] Mean Cell Volume 86.6 79.0 - 92.0 fL [facility]ILL[facility]NI[facility] Mean Cell Hemoglobin 29.8 25.6 - 32.2 pg [facility] MILLENNI[facility] Mean Cell Hemoglobin Concentration 34.5 32.0 - 36.5 gm/dL [facility] MILLENNI[facility] Platelet 221 145 - 370 x10(3)/mc L [facility] MILLENNI[facility] RDW Standard Deviation 39.5 35.0 - 46.0 fL [facility]ILLENNI[facility] RDW coefficient of variation 12.5 10.9 - 14.4 % [facility] MILLENNIUM Mean Platelet Volume 11.2 9.0 - 12.0 fL [facility] MILLENNIUM Blood specimen (specimen) 12/05/2013 4:35 AM EDT 12/05/2013 4:43 AM EDT Narrative Resulting Agency Comment Spec In Lab Charis Herrera MD HEMATOLOGY ORDERABLE S Performing Organization Address [facility] Co de Phone Number [facility] * Prothrombin Time (12/05/2013 4:35 AM EDT) Prothrombin Time 14.7 12.5 - 15.5 sec [facility]ER MILLENNIUM Comment: [facility] Transfusion Committee Guidelines: INR less than 2.0, PTT less than OR equal to 43.5 seconds, or Fibrinogen greater than or equal to 100 mg/dl indicate adequate procoagulant activity for hemostasis in patients without underlying bleeding disorders. International Normalization Ratio 1.1 0.9 - 1.1 CERNER MILLENNIUM Blood specimen (specimen) 12/05/2013 4:35 AM EDT 12/05/2013 4:43 AM EDT Narrative Resulting Agency Comment Spec In Lab Charis Herrera MD HEMATOLOGY ORDERABLE S Performing Organization Address [facility]/ZIP Co de Phone Number [facility] * (ABNORMAL) Basic Metabolic Panel (non-fasting) (12/05/2013 4:35 AM EDT) Glucose 96 60 - 199 mg/dL [facility] MILLENNIUM Comment:Diabetes: >=200 mg/d L plus symptoms Blood Urea Nitrogen 11 10 - 20 mg/dL [facility] MILL[facility] Creatinine 0.72(L) 0.80 - 1.50 mg/dL [...] 93(L) 98 - 107 mmol/L CERNER MILLENNIUM Carbon Dioxide 27 22 - 31 mmol/L CERNER MILLENNIUM Anion Gap 15 5 - 15 mmol/L CERNER MILLENNIUM Calcium 8.9 8.5 - 10.5 mg/dL CERNER MILLENNIUM Est [...] the following links into your internet browser. [email or web address] Blood specimen (specimen) 12/05/2013 4:35 AM EDT 12/05/2013 4:43 AM EDT Narrative Resulting Agency Comment Spec In Lab Charis Herrera MD CHEMISTRY ORDERABLES TOROJERE KNAPPCLARICELORENZA * POCT Glucose (12/05/2013 3:55 AM EDT) Glucose, POC 104 60 - 199 mg/dL CERNER MILLENNIUM Comment: Supplemental ranges: <140 mg/dL before meals <180 mg/dL all other times of the day Blood specimen (specimen) 12/05/2013 3:55 AM EDT 12/05/2013 3:55 AM EDT Charis Herrera MD POINT OF CARE TEST O HARINDER Performing Organization Address [facility] de Phone Number [facility] * POCT Glucose (12/04/2013 11:43 PM EDT) Glucose, POC 94 60 - 199 mg/dL [facility] Comment: Supplemental ranges: <140 mg/dL before meals <180 mg/dL all other times of the day Blood specimen (specimen) 12/04/2013 11:43 PM EDT 12/04/2013 11:43 PM EDT Charis Herrera MD POINT OF CARE TEST O HARINDER Performing Organization Address [facility] de Phone Number [facility] ARENCOM[facility] * POCT Glucose (12/04/2013 7:29 PM EDT) Glucose, POC 120 60 - 199 mg/dL [facility] MILLENCOM[facility] Comment: Supplemental ranges: <140 mg/dL before meals <180 mg/dL all other times of the day Blood specimen (specimen) 12/04/2013 7:29 PM EDT 12/04/2013 7:29 PM EDT Charis Herrera MD POINT OF CARE TEST O HARINDER Performing Organization Address [facility] de Phone Number CERJERE KNAPPENCOMPASS [facility] * POCT Glucose (12/04/2013 4:12 PM EDT) Glucose, POC 108 60 - 199 mg/dL [facility] MILLENCOMPASS [facility] Comment: Supplemental ranges: <140 mg/dL before meals <180 mg/dL all other times of the day Blood specimen (specimen) 12/04/2013 4:12 PM EDT 12/04/2013 4:12 PM EDT Charis Herrera MD POINT OF CARE TEST O HARINDER Performing Organization Address [facility] Co de Phone Number [facility] RAENNIUM * POCT Glucose (12/04/2013 11:41 AM EDT) Glucose, POC 136 60 - 199 mg/dL [facility] Comment: Supplemental ranges: <140 mg/dL before meals <180 mg/dL all other times of the day Blood specimen (specimen) 12/04/2013 11:41 AM EDT 12/04/2013 11:41 AM EDT Charis Herrera MD POINT OF CARE TEST O HARINDER Performing Organization Address [facility] Co de Phone Number [facility] * POCT Glucose (12/04/2013 7:07 AM EDT) Glucose, POC 126 60 - 199 mg/dL [facility] Comment: Supplemental ranges: <140 mg/dL before meals <180 mg/dL all other times of the day Blood specimen (specimen) 12/04/2013 7:07 AM EDT 12/04/2013 7:07 AM EDT Charis Herrera MD POINT OF CARE TEST O HARINDER Performing Organization Address [facility] de Phone Number [facility] * (ABNORMAL) Hemoglobin A1c (12/04/2013 3:54 AM EDT) Hemoglobin A1c 6.7(H) <=5.6 % [facility] Comment: Reference Range: 4.3 - [...] Mellitus, Diabetes Care 2013; 36: Suppl. 1, I61-70 Estimated Average Glucose 146 mg/dL [facility] Comment: eAG equivalents for HbA1c percentages: HbA1c(%) ?eAG(mg/dL) 6.0 ?126 6.5 ?140 7.0 ?154 7.5 ?169 8.0 ?183 8.5 ?197 9.0 ?212 9.5 ?226 10.0 ? 240 Limitations: The eAG calculation has not been validated on women, individuals below 18 years old and above 70 years old, and individuals with hemoglobinopathies. Additional resources are available on the ADA website: [email or web address] Blake KENNEY, Charley J, Gian R, et al. ??Translating the A1C assay into estimated average glucose values. ??Diabetes Care 2008:31(8):7478-8518. Blood specimen (specimen) 12/04/2013 3:54 AM EDT 12/04/2013 10:05 AM EDT Narrative Resulting Agency Comment Spec In Lab Charis Herrera MD CHEMISTRY ORDERABLES TORONER RAENNIUM * (ABNORMAL) Differential, Automated (12/04/2013 3:54 AM EDT) Neutrophil % 56.6 % CERNER MILLENNIUM Neutrophil Absolute 8.51(H) 1.50 - 6.30 x10(3)/mc L CERNER MILLENNIUM Lymph % 35.0 % CERNER MILLENNIUM Lymphocytes Abs 5.3(H) 1.0 - 3.6 x10(3)/mc L CERNER MILLENNIUM Monocyte % 7.4 % CERNER MILLENNIUM Monocyte Abs 1.1(H) 0.2 - 1.0 x10(3)/mc L CERNER MILLENNIUM Eos % 0.6 % CERNER MILLENNIUM Eosinophils Abs 0.1 0.0 - 0.5 x10(3)/mc L CERNER MILLENNIUM Basophil % 0.2 % CERNER MILLENNIUM Baso Absolute 0.0 0.0 [...] differential will be performed. Immature Gran Absolute 0.03 0.00 - 0.05 x10(3)/mc L CERNER MILLENNIUM Blood specimen (specimen) 12/04/2013 3:54 AM EDT 12/04/2013 4:27 AM EDT Narrative Resulting Agency Comment Spec In Lab Charis Herrera MD HEMATOLOGY ORDERABLE S CERNER MILLENNIUM * (ABNORMAL) Hemogram (12/04/2013 3:54 AM EDT) White Blood Cell 15.0(H) 4.0 - 10.0 x10(3)/mc L CERNER MILLENNIUM Red Blood Cell 3.50(L) 4.63 - 6.08 x10(6)/mc L CERNER MILLENNIUM Hemoglobin 10.3(L) 13.7 - 17.5 gm/dL CERNER MILLENNIUM Hematocrit 30.2(L) 40.0 - 51.0 % CERNER MILLENNIUM Mean Cell Volume 86.3 79.0 - 92.0 fL CERNER MILLENNIUM Mean Cell Hemoglobin 29.4 25.6 - 32.2 pg CERNER MILLENNIUM Mean Cell Hemoglobin Concentration 34.1 32.0 - 36.5 gm/dL CERNER MILLENNIUM Platelet 212 145 - 370 x10(3)/mc L CERNER MILLENNIUM RDW Standard Deviation 39.2 35.0 - 46.0 fL CERNER MILLENNIUM RDW coefficient of variation 12.5 10.9 - 14.4 % CERNER MILLENNIUM Mean Platelet Volume 11.4 9.0 - 12.0 fL CERNER MILLENNIUM Blood specimen (specimen) 12/04/2013 3:54 AM EDT 12/04/2013 4:27 AM EDT Narrative Resulting Agency Comment Spec In Lab Charis Herrera MD HEMATOLOGY ORDERABLE S Performing Organization Address [facility] de Phone Number RANDY LOVEIUM * Prothrombin Time (12/04/2013 3:54 AM EDT) Prothrombin Time 13.2 12.5 - 15.5 sec CERNER MILLENNIUM Comment: [facility] Transfusion Committee Guidelines: INR less than 2.0, PTT less than OR equal to 43.5 seconds, or Fibrinogen greater than or equal to 100 mg/dl indicate adequate procoagulant activity for hemostasis in patients without underlying bleeding disorders. International Normalization Ratio 0.9 0.9 - 1.1 CERNER MILLENNIUM Blood specimen (specimen) 12/04/2013 3:54 AM EDT 12/04/2013 4:27 AM EDT Narrative Resulting Agency Comment Spec In Lab Charis Herrera MD HEMATOLOGY ORDERABLE S Performing Organization Address [facility] de Phone Number CERJERE MORALES * (ABNORMAL) Basic Metabolic Panel (non-fasting) (12/04/2013 3:54 AM EDT) Glucose 105 60 - 199 mg/dL CERNER MILLENNIUM Comment:Diabetes: >=200 mg/d L plus symptoms Blood Urea Nitrogen 10 10 - 20 mg/dL CERNER MILLENNIUM [...] 93(L) 98 - 107 mmol/L CERNER MILLENNIUM Carbon Dioxide 30 22 - 31 mmol/L CERNER MILLENNIUM Anion Gap 10 5 - 15 mmol/L CERNER MILLENNIUM Calcium 8.6 8.5 - 10.5 mg/dL CERNER MILLENNIUM Est [...] the following links into your internet browser. [email or web address] Blood specimen (specimen) 12/04/2013 3:54 AM EDT 12/04/2013 4:27 AM EDT Narrative Resulting Agency Comment Spec In Lab Charis Herrera MD CHEMISTRY ORDERABLES Performing Organization Address [facility] de Phone Number [facility] * POCT Glucose (12/04/2013 3:45 AM EDT) Glucose, POC 115 60 - 199 mg/dL [facility] Comment: Supplemental ranges: <140 mg/dL before meals <180 mg/dL all other times of the day Blood specimen (specimen) 12/04/2013 3:45 AM EDT 12/04/2013 3:45 AM EDT Charis Herrera MD POINT OF CARE TEST O RDERABLES Performing Organization Address [facility] de Phone Number [facility] * POCT Glucose (12/03/2013 11:42 PM EDT) Glucose, POC 115 60 - 199 mg/dL [facility] Comment: Supplemental ranges: <140 mg/dL before meals <180 mg/dL all other times of the day Blood specimen (specimen) 12/03/2013 11:42 PM EDT 12/03/2013 11:42 PM EDT Charis Herrera MD POINT OF CARE TEST O HARINDER Performing Organization Address [facility] de Phone Number [facility] [employer] TherapeuticsMARTIN [facility] * POCT Glucose (12/03/2013 7:22 PM EDT) Glucose, POC 102 60 - 199 mg/dL [facility] Vicus TherapeuticsENCOMPASS [facility]UM Comment: Supplemental ranges: <140 mg/dL before meals <180 mg/dL all other times of the day Blood specimen (specimen) 12/03/2013 7:22 PM EDT 12/03/2013 7:22 PM EDT Narrative Authorizing Provider Result Daniela Herrera MD POINT OF CARE TEST O HARINDER Performing Organization Address [facility] de Phone Number [facility] * POCT Glucose (12/03/2013 5:20 PM EDT) Glucose, POC 115 60 - 199 mg/dL [facility] Vicus TherapeuticsENNIUM Comment: Supplemental ranges: <140 mg/dL before meals <180 mg/dL all other times of the day Blood specimen (specimen) 12/03/2013 5:20 PM EDT 12/03/2013 5:20 PM EDT Charis Herrera MD POINT OF CARE TEST O HARINDER Performing Organization Address [facility] de Phone Number [facility] * POCT Glucose (12/03/2013 4:37 PM EDT) Glucose, POC 81 60 - 199 mg/dL [facility] Vicus TherapeuticsENCOMPASS [facility] Comment: Supplemental ranges: <140 mg/dL before meals <180 mg/dL all other times of the day Blood specimen (specimen) 12/03/2013 4:37 PM EDT 12/03/2013 4:37 PM EDT Charis Herrera MD POINT OF CARE TEST O RDERATESSA Performing Organization Address [facility] Co de Phone Number [facility] * POCT Glucose (12/03/2013 4:21 PM EDT) Glucose, POC 70 60 - 199 mg/dL [facility] Comment: Supplemental ranges: <140 mg/dL before meals <180 mg/dL all other times of the day Blood specimen (specimen) 12/03/2013 4:21 PM EDT 12/03/2013 4:21 PM EDT Charis Herrera MD POINT OF CARE TEST O HARINDER Performing Organization Address [facility] de Phone Number [facility] * POCT Glucose (12/03/2013 11:58 AM EDT) Glucose, POC 119 60 - 199 mg/dL [facility] Comment: Supplemental ranges: <140 mg/dL before meals <180 mg/dL all other times of the day Blood specimen (specimen) 12/03/2013 11:58 AM EDT 12/03/2013 11:58 AM EDT Charis Herrera MD POINT OF CARE TEST O JAYLONERATESSA Performing Organization Address [facility] de Phone Number [facility] * POCT Glucose (12/03/2013 7:19 AM EDT) Glucose, POC 139 60 - 199 mg/dL [facility] Comment: Supplemental ranges: <140 mg/dL before meals <180 mg/dL all other times of the day Blood specimen (specimen) 12/03/2013 7:19 AM EDT 12/03/2013 7:19 AM EDT Charis Herrera MD POINT OF CARE TEST O RDERATESSA Performing Organization Address [facility] Co de Phone Number [facility] * (ABNORMAL) Differential, Automated (12/03/2013 4:21 AM EDT) Neutrophil % 72.1(H) 34.0 - 71.0 % CERNER MILLENNIUM Neutrophil Absolute 9.42(H) 1.50 - 6.30 x10(3)/mc L CERNER MILLENNIUM Lymph % 21.5 19.0 - 53.0 % CERNER MILLENNIUM Lymphocytes Abs 2.8 1.0 - 3.6 x10(3)/mc L CERNER MILLENNIUM Monocyte % 6.1 4.0 - 13.0 % CERNER MILLENNIUM Monocyte Abs 0.8 0.2 - 1.0 x10(3)/mc L CERNER MILLENNIUM Eos % 0.0 0.0 - 7.0 % CERNER MILLENNIUM Eosinophils Abs 0.0 0.0 - 0.5 x10(3)/mc L CERNER MILLENNIUM Basophil % 0.1 0.0 - 2.0 % CERNER MILLENNIUM Baso Absolute 0.0 0.0 [...] Lab Charis Herrera MD HEMATOLOGY ORDERABLE S RANDY MORALES * (ABNORMAL) Hemogram (12/03/2013 4:21 AM EDT) Pathologist [facility] White Blood Cell 13.0(H) 4.0 - 10.0 x10(3)/mc L CERNER MILLENNIUM Red Blood Cell 3.59(L) 4.63 - 6.08 x10(6)/mc L CERNER MILLENNIUM Hemoglobin 10.5(L) 13.7 - 17.5 gm/dL CERNER MILLENNIUM Hematocrit 30.7(L) 40.0 - 51.0 % CERNER MILLENNIUM Mean Cell Volume 85.5 79.0 - 92.0 fL CERNER MILLENNIUM Mean Cell Hemoglobin 29.2 25.6 - 32.2 pg CERNER MILLENNIUM Mean Cell Hemoglobin Concentration 34.2 32.0 - 36.5 gm/dL CERNER MILLENNIUM Platelet 232 145 - 370 x10(3)/mc L CERNER MILLENNIUM RDW Standard Deviation 38.7 35.0 - 46.0 fL CERNER MILLENNIUM RDW coefficient of variation 12.4 10.9 - 14.4 % CERNER MILLENNIUM Mean Platelet Volume 10.9 9.0 - 12.0 fL CERNER MILLENNIUM Blood specimen (specimen) 12/03/2013 4:21 AM EDT 12/03/2013 4:27 AM EDT Narrative Resulting Agency Comment Spec In Lab Charis Herrera MD HEMATOLOGY ORDERABLE S Performing Organization Address [facility] Co de Phone Number [facility] KNAPPMARTIN [facility] * Prothrombin Time (12/03/2013 4:21 AM EDT) Pathologist [facility] Prothrombin Time 13.8 12.5 - 15.5 sec [facility] MILLENNIUM Comment: [facility] Transfusion Committee Guidelines: INR less than 2.0, PTT less than OR equal to 43.5 seconds, or Fibrinogen greater than or equal to 100 mg/dl indicate adequate procoagulant activity for hemostasis in patients without underlying bleeding disorders. International Normalization Ratio 1.0 0.9 - 1.1 CERNER MILLENNIUM Blood specimen (specimen) 12/03/2013 4:21 AM EDT 12/03/2013 4:27 AM EDT Narrative Resulting Agency Comment Spec In Lab Charis Herrera MD HEMATOLOGY ORDERABLE S Performing Organization Address [facility] Co de Phone Number [facility] * (ABNORMAL) Basic Metabolic Panel (non-fasting) (12/03/2013 4:21 AM EDT) Glucose 169 60 - 199 mg/dL CERNER MILLENNIUM [...] - 107 mmol/L CERNER MILLENNIUM Carbon Dioxide 24 22 - 31 mmol/L CERNER MILLENNIUM Anion Gap 14 5 - 15 mmol/L CERNER MILLENNIUM Calcium 8.6 8.5 - 10.5 mg/dL CERNER MILLENNIUM Est [...] the following links into your internet browser. [email or web address] Blood specimen (specimen) 12/03/2013 4:21 AM EDT 12/03/2013 4:27 AM EDT Narrative Resulting Agency Comment Spec In Lab Charis Herrera MD CHEMISTRY ORDERABLES [facility] * POCT Glucose (12/03/2013 3:54 AM EDT) Glucose, POC 185 60 - 199 mg/dL [facility] Comment: Supplemental ranges: <140 mg/dL before meals <180 mg/dL all other times of the day Blood specimen (specimen) 12/03/2013 3:54 AM EDT 12/03/2013 3:54 AM EDT Charis Herrera MD POINT OF CARE TEST O HARINDER Performing Organization Address [facility] de Phone Number [facility] * POCT Glucose (12/03/2013 12:06 AM EDT) Glucose, POC 154 60 - 199 mg/dL [facility] Comment: Supplemental ranges: <140 mg/dL before meals <180 mg/dL all other times of the day Blood specimen (specimen) 12/03/2013 12:06 AM EDT 12/03/2013 12:06 AM EDT Narrative Authorizing Provider Result Daniela Herrera MD POINT OF CARE TEST O HARINDER Performing Organization Address [facility] de Phone Number [facility] * POCT Glucose (12/02/2013 8:51 PM EDT) Glucose, POC 164 60 - 199 mg/dL [facility] Comment: Supplemental ranges: <140 mg/dL before meals <180 mg/dL all other times of the day Blood specimen (specimen) 12/02/2013 8:51 PM EDT 12/02/2013 8:51 PM EDT Narrative Authorizing Provider Result Daniela Herrera MD POINT OF CARE TEST O HARINDER Performing Organization Address [facility] de Phone Number [facility] * (ABNORMAL) POCT Glucose (12/02/2013 7:09 PM EDT) Glucose, POC 226(H) 60 - 199 mg/dL [facility] Comment: Supplemental ranges: <140 mg/dL before meals <180 mg/dL all other times of the day Blood specimen (specimen) 12/02/2013 7:09 PM EDT 12/02/2013 7:09 PM EDT Charis Herrera MD POINT OF CARE TEST O RDSTEVEN Performing Organization Address [facility] de Phone Number RANDY MORALES * Prothrombin Time (12/02/2013 4:46 PM EDT) Prothrombin Time 13.0 12.5 - 15.5 sec [facility] Comment: [facility] Transfusion Committee Guidelines: INR less than 2.0, PTT less than OR equal to 43.5 seconds, or Fibrinogen greater than or equal to 100 mg/dl indicate adequate procoagulant activity for hemostasis in patients without underlying bleeding disorders. International Normalization Ratio 0.9 0.9 - 1.1 [facility] Blood specimen (specimen) 12/02/2013 4:46 PM EDT 12/02/2013 4:53 PM EDT Narrative Resulting Agency Comment Spec In Lab Charis Herrera MD HEMATOLOGY ORDERABLE S Performing Organization Address [facility] de Phone Number [facility] K[facility]PP[facility] * (ABNORMAL) POCT Glucose (12/02/2013 4:11 PM EDT) Glucose, POC 207(H) 60 - 199 mg/dL [facility] Comment: Supplemental ranges: <140 mg/dL before meals <180 mg/dL all other times of the day Blood specimen (specimen) 12/02/2013 4:11 PM EDT 12/02/2013 4:11 PM EDT Charis Herrera MD POINT OF CARE TEST O HARINDER Performing Organization Address [facility] de Phone Number [facility] KNAPPMART[facility] * POCT Glucose (12/02/2013 10:06 AM EDT) Glucose, POC 165 60 - 199 mg/dL [facility] Comment: Supplemental ranges: <140 mg/dL before meals <180 mg/dL all other times of the day Blood specimen (specimen) 12/02/2013 10:06 AM EDT 12/02/2013 10:06 AM EDT Charis Herrera MD POINT OF CARE TEST O RDERABLES [facility] K[facility]PPM[facility] * Surgical Pathology Report (12/02/2013 9:56 AM EDT) Final Diagnosis ? [facility] ? Provider: ?? CHARIS HERRERA ?? Pt. Name: ?? ZACK SOUSA ? Acc #: ?[id number] ?Pt. ? Col Date: ?? 12/02/2013 ? [...] ? Left DJD 12/03/2013 10:07 AM EDT [facility] STRUCTURE / Unknown 12/02/2013 9:56 AM EDT 12/02/2013 9:56 AM EDT Charis Herrera MD PATHOLOGY/CYTOLOGY O HARINDER Performing Organization Address City/[facility]/ZIP Co de Phone Number RANDY MORALES [facility] [place] [address] * Specimen to Pathology (surgical or derm) (12/02/2013 9:31 AM EDT) AP Specimen 12/02/2013 9:31 AM EDT 12/02/2013 9:31 AM EDT Narrative RANDY MORALES - 12/02/2013 9:31 AM EDT Specimen requisition ordered. ??Separate Pathology report to follow Charis Herrera MD PATHOLOGY/CYTOLOGY O RDSTEVEN RANDY MORALES * POCT Glucose (12/02/2013 7:26 AM EDT) Glucose, POC 139 60 - 199 mg/dL RANDY MORALES Comment: Supplemental ranges: <140 mg/dL before meals <180 mg/dL all other times of the day Blood specimen (specimen) 12/02/2013 7:26 AM EDT 12/02/2013 7:26 AM EDT Charis Herrera MD POINT OF CARE TEST O RDERABLES Performing Organization Address [facility] de Phone Number RANDY MORALES * APTT (12/02/2013 7:25 AM EDT) Partial Thromboplastin Time 29 25 - 35 sec TOROJERE KNAPPCLARICEIUM Comment: Recommended therapeutic PTT range for full dose unfractionated heparin is 80-114 seconds. Blood specimen (specimen) 12/02/2013 7:25 AM EDT 12/02/2013 7:27 AM EDT Narrative Resulting Agency Comment Spec In Lab Sachi Fontanez MD HEMATOLOGY ORDERABLE S Performing Organization Address [facility] Phone Number RANDY MORALES * Prothrombin Time (12/02/2013 7:25 AM EDT) Prothrombin Time 12.7 12.5 - 15.5 sec TOROJERE KNAPPENNLORENZA Comment: [facility] Transfusion Committee Guidelines: INR less than 2.0, PTT less than OR equal to 43.5 seconds, or Fibrinogen greater than or equal to 100 mg/dl indicate adequate procoagulant activity for hemostasis in patients without underlying bleeding disorders. International Normalization Ratio 0.9 0.9 - 1.1 TOROJERE KNAPPCLARICEIUM Blood specimen (specimen) 12/02/2013 7:25 AM EDT 12/02/2013 7:27 AM EDT Narrative Resulting Agency Comment Spec In Lab Sachi Fontanez MD HEMATOLOGY ORDERABLE S Performing Organization Address [facility] de Phone Number RANDY MORALES documented in [...] Site bacitracin injection ONCE PRN, Starting on 12/02/13 at 0810, Until Mon12/02/13 at 1409, Intra-Operative [...] hours., Routine 0556 (Given - Provider: Eli Adames, ELMA)1322 (Given - Provider: Elfego Garcia RN)2118 (Given [...] Suspected): Prophylaxis 0228 (Given - Provider: Eli Adames, ELMA) diaZEPam (VALIUM) tablet 5 mg (COMPLETED) 5 mg, Oral, ONCE, 1 dose, On Mon12/04/13 at 0030, Routine 0019 (Given - Provider: Naresh Rojo, RN) enoxaparin (LOVENOX) injection 40 mg (COMPLETED) 40 mg, Subcutaneous, ONCE, 1 dose, On Mon12/04/13 at 1000, Routine 1055 (Given - Provider: Elfego Garcia RN) enoxaparin (LOVENOX) injection 40 mg (COMPLETED) 40 mg, Subcutaneous, ONCE, 1 dose, On Mon12/05/13 at 1000, Routine 1040 (Given - Provid er: Marcelina Sims, ELMA) esomeprazole (NexIUM) capsule 40 mg (CANCELED) 40 mg, Oral, DAILY, First dose on Mon12/02/13 at 1630, Until Discontinued, Routine 0819 (Given - Provider: Elfego Garcia RN) 0819 (Given - Provider: Elfego Garcia RN) 0807 (Given - Provider: Marcelina Sims, RN) fentaNYL (DURAGESIC) 50 mcg/hr patch 1 patch (CANCELED)(Linked Group 1) 1 patch, Transdermal, EVERY 72 HOURS, First dose on Mon12/04/13 at 1500, Until Discontinued, Place fentaNYL patch, Routine 1434 (Patch Applied - Provider: Elfego Garcia, RN) fentaNYL 50mcg/mL injection (COMPLETED) 50 mcg, Intravenous, ONCE, 1 dose, On Mon12/03/13 at 1915, Routine 1857 (Given - Provider: Elfego Garcia, ELMA) fentaNYL 50mcg/mL injection (COMPLETED) 50 mcg, [...] RN) 08 (Given - Provider: Marcelina Sims, RN) hydrochlorothiazide (HYDRODIURIL) tablet 25 mg (CANCELED) 25 mg, Oral, DAILY, First dose on Mon12/03/13 at 0900, Until Discontinued, Routine 08 (Given - Provider: Elfego Garcia RN) 08 (Given - Provider: Elfego Garcia RN) 08 (Given - Provider: Marcelina Sims, RN) HYDROmorphone (DILAUDID) injection 0.5 mg (COMPLETED) [...] (Given - Provider: Marcelina Sims RN) multivitamin Same-Xb-VA-Min (THERAPEUTIC-M) 27-0.4 mg tablet 1 tablet (CANCELED) 1 tablet, Oral, DAILY, First dose on Mon12/02/13 at 1630, Until Discontinued 818 (Given - Provider: Elfego Garcia RN) 818 (Given - Provider: Elfego Garcia RN) 08 [...] 1030, Until Discontinued, Recovery (Recovery-Hospital Unit), Routine 23 (Given - Provider: Elfego Garcia RN)2005 (Given [...] 7.5 mg, Oral, ONCE, 1 dose, On Mon12/05/13 at 1700, Routine 1704 (Given - Provid er: Marcelina Sims RN) Continuous Medication Order 12/03/2013 12/04/2013 12/05/2013 fentaNYL 50 mcg/mL ECONOMIC DEVELOPER 30 mL (CANCELED) Intravenous, ECONOMIC DEVELOPER ONLY, Starting on Mon12/04/13 at 0045, Until Mon12/04/13 at 0200 0050 (New Syringe/Cartridge - Provider: Naresh Rojo RN) fentaNYL 50 mcg/mL ECONOMIC DEVELOPER 30 mL (CANCELED) Intravenous, ECONOMIC DEVELOPER ONLY, Starting on Mon12/04/13 at 0230, Until Mon12/05/13 at 0759 0230 (Rate/Dose Change - Provider: Naresh Rojo RN)1125 (Rate/Dose Change - Provider: Elfego Garcia RN)1129 (New Syringe/Cartridge - Provider: Elfego Garcia RN)2200 (New Syringe/Cartridge - Provider: Elfego Garcia RN) 0850 (Stopped - Provider: Marcelina Sims RN) HYDROmorphone (DILAUDID) 1 mg/mL ECONOMIC DEVELOPER 30 mL (CANCELED) Intravenous, ECONOMIC DEVELOPER ONLY, Starting on Mon12/03/13 at 2100, Until Mon12/03/13 at 2321 2130 (New Syringe/Cartridge - Provider: Naresh Rojo, ELMA) HYDROmorphone (DILAUDID) 1 mg/mL ECONOMIC DEVELOPER 30 mL (CANCELED) Intravenous, ECONOMIC DEVELOPER ONLY, Starting on Mon12/03/13 at 2345, Until [...] Elfego Garcia RN)2247 (Given - Provider: Naresh Rojo RN) HYDROmorphone [...] Martines RN)0855 (See Alternative - Provider: Marcelina Sism RN)1155 (See Alternative - Provider: Marcelina Sism RN)1256 (See Alternative - Provider: Marcelina Sims [...] Routine documented in this encounter Care Teams Group Home Manager Relationship Specialty Start Date End Date Reece Calixto MD [address] [place] [address] PCP - General 12/21/11 12/10/14 documented as of this encounter
--- OUTSIDE RECORDS SUMMARY | 2024-02-26 21:31 | XMS_ITS | Encounter Summary ---
Author Organization [facility] [place] [address] Care Team Providers Care Credit Professional Name Role Phone Ashley Calixto MD Primary Care Provider [phone] Reason for Visit * Reason Comments Left Knee Pain knee pain Encounter Details Date Type Department Care Team (Latest Contact Info) Description 11/21/2013 12:40 PM EDT Office [place] [address] Mihir Herrera MD [facility] [place] [address] Osteoarthritis of knee Discharge Disposition: Home Social [...] metformin. He has not received authorization from [facility] [place] for his Hep C treatment but notes [...] EDT Osteoarthritis of knee BASIC METABOLIC PANEL Routine 11/21/2013 11:50 AM EDT Osteoarthritis of knee documented in this encounter Results * Differential, Automated (11/21/2013 11:50 AM EDT) Neutrophil % 55.4 34.0 - 71.0 % CERNER MILLENNIUM Neutrophil Absolute 5.21 1.50 - 6.30 x10(3)/mcL CERNER MILLENNIUM Lymph % 34.5 19.0 - 53.0 % CERNER MILLENNIUM Lymphocytes Abs 3.2 1.0 - 3.6 x10(3)/mcL CERNER MILLENNIUM Monocyte % 4.4 4.0 - 13.0 % CERNER MILLENNIUM Monocyte Abs 0.4 0.2 - 1.0 x10(3)/mcL CERNER MILLENNIUM Eos % 4.9 0.0 - 7.0 % CERNER MILLENNIUM Eosinophils Abs 0.5 0.0 - 0.5 x10(3)/mcL CERNER MILLENNIUM Basophil % 0.4 0.0 - 2.0 % CERNER MILLENNIUM Baso Absolute 0.0 0.0 - 0.2 x10(3)/mcL CERNER MILLENNIUM [...] Immature Gran Absolute 0.04 0.00 - 0.05 x10(3)/mcL CERNER MILLENNIUM Blood specimen (specimen) 11/21/2013 11:50 AM EDT 11/21/2013 12:00 PM EDT Narrative Resulting Agency Comment Spec In Lab Mihir Herrera MD HEMATOLOGY ORDERABLE S CERJERE KNAPPENNIUM * (ABNORMAL) Hemogram (11/21/2013 11:50 AM EDT) White Blood Cell 9.4 4.0 - 10.0 x10(3)/mc L CERNER MILLENNIUM Red Blood Cell 4.61(L) 4.63 - 6.08 x10(6)/mc L CERNER MILLENNIUM Hemoglobin 13.9 13.7 - 17.5 gm/dL CERNER MILLENNIUM Hematocrit 40.0 40.0 - 51.0 % CERNER MILLENNIUM Mean Cell Volume 86.8 79.0 - 92.0 fL CERNER MILLENNIUM Mean Cell Hemoglobin 30.2 25.6 - 32.2 pg CERNER MILLENNIUM Mean Cell Hemoglobin Concentration 34.8 32.0 - 36.5 gm/dL CERNER MILLENNIUM Platelet 199 145 - 370 x10(3)/mc L CERNER MILLENNIUM RDW Standard Deviation 40.0 35.0 - 46.0 fL CERNER MILLENNIUM RDW coefficient of variation 12.6 10.9 - 14.4 % CERNER MILLENNIUM Mean Platelet Volume 11.7 9.0 - 12.0 fL CERNER MILLENNIUM Blood specimen (specimen) 11/21/2013 11:50 AM EDT 11/21/2013 12:00 PM EDT Narrative Resulting Agency Comment Spec In Lab Mihir Herrera MD HEMATOLOGY ORDERABLE S CERNER MILLENNIUM * (ABNORMAL) Basic Metabolic Panel (non-fasting) (11/21/2013 11:50 AM EDT) Glucose 159 60 - 199 mg/dL CERNER MILLENNIUM Comment:Diabetes: >=200 mg/d L plus symptoms Blood Urea Nitrogen 9(L) 10 - 20 mg/dL CERNER MILLENNIUM Creatinine 0.71(L) 0.80 - 1.50 mg/dL CERNER MILLENNIUM Comment: Please note that the pediatric reference intervals supplied above were not validated at [facility]. Results from pediatric patients should be interpreted [...] the following links into your internet browser. [email or web address] Blood specimen (specimen) 11/21/2013 11:50 AM EDT 11/21/2013 12:00 PM EDT Narrative Resulting Agency Comment Spec In Lab Mihir Herrera MD CHEMISTRY ORDERABLES [facility] documented in this encounter Visit Diagnoses Diagnosis Osteoarthritis of knee Osteoarthrosis, unspecified whether generalized or localized, lower leg documented in this encounter Care Teams Credit Professional Relationship Specialty Start Date End Date Ashley Calixto MD [address] [place] [address] PCP - General 12/21/11 12/10/14 documented as of this encounter
--- OUTSIDE RECORDS SUMMARY | 2024-02-26 21:31 | XMS_ITS | Encounter Summary ---
Author Organization [facility] [place] [address] Care Team Providers Care Part Maker Name Role Phone Ashley Calixto MD Primary Care Provider [phone] Encounter Details Date Type Department Care Team (Late st Contact Info) Description 09/18/2013 Telephone [place] [phone] Mihir Herrera MD [facility] [place] [address] Social History Tobacco Use Types Packs/Day Years [...] name: Zack Langley : 1970 Phone number: [phone] (home) Mailing address: [address] [facility] [address] AGE: 43 y.o. REASON FOR APPOINTMENT: KNEE PAIN o REFERRED BY DR. PUTNAM AT HIS 09/18 APPOINTMENT. COMPLETE. documented in this encounter Plan of Treatment Not on file documented as of this encounter Visit Diagnoses Not on filedocumented in this encounter Care Teams Part Maker Relationship Specialty Start Date End Date Ashley Calixto MD [facility] [address] [facility] [address] [place] [address] PCP - General 12/21/11 12/10/14 documented as of this encounter
--- OUTSIDE RECORDS SUMMARY | 2024-02-26 21:31 | XMS_ITS | Encounter Summary ---
[place] [address] Care Team Providers Care Trouble Locater Name Role Phone Ashley Calixto MD Primary Care Provider [phone] Encounter Details Date Type Department Care Team (Latest Contact Info) Description 12/06/2013 Anti-Coag Telephone [place] [phone] Erica Park RN S/P total knee arthroplasty, [...] Results * (ABNORMAL) External Lab Results (12/06/2013) INR, POC 1.3([facility]) 0.9 - 1.1 Comment:Renae Historical Provider CHEMISTRY ORDERAB LES documented in this encounter Visit Diagnoses Diagnosis S/P total knee arthroplasty, left documented in this encounter Care Teams Trouble Locater Relationship Specialty Start Date End Date Ashley Calixto MD [address] [place] [address] PCP - General 12/21/11 12/10/14 documented as of this encounter
--- OUTSIDE RECORDS SUMMARY | 2024-02-26 21:31 | XMS_ITS | Encounter Summary ---
[place] [address] Care Team Providers Care Medical Office Representative Name Role Phone Ashley Calixto MD Primary Care Provider [phone] Encounter Details Date Type Department Care Team (Late st Contact Info) Description 11/21/2013 11:20 AM EDT Clinical [place] [phone] Social History Tobacco Use Types Packs/Day Years [...] filedocumented in this encounter Care Teams Medical Office Representative Relationship Specialty Start Date End Date Ashley Calixto MD [facility] [address] [place] [address] PCP - General 12/21/11 12/10/14 documented as of this encounter
--- OUTSIDE RECORDS SUMMARY | 2024-02-26 21:31 | XMS_ITS | Encounter Summary ---
Author Organization [facility] [address] Care Team Providers Care Adult Neurologist Name Role Phone Ashley Calixto MD Primary Care Provider [phone] Reason for Visit * Reason Comments Left Knee Pain Encounter Details Date Type Department Care Team (Latest Contact Info) Description 09/18/2013 3:15 PM EDT Office [place] [address] Lj Braden MD [facility] [place] [address] Osteoarthritis of knee (Primary Dx) Discharge Disposition: [...] He was seen by a physician in [facility]. He also has hepatitis C and [...] leg documented in this encounter Care Teams Adult Neurologist Relationship Specialty Start Date End Date Ashley Calixto MD [address] [place] [address] PCP - General 12/21/11 12/10/14 documented as of this encounter
--- OUTSIDE RECORDS SUMMARY | 2024-02-26 21:31 | XMS_ITS | Encounter Summary ---
[place] [address] Care Team Providers Care Commissioning Manager Name Role Phone Ashley Calixto MD Primary Care Provider [phone] Encounter Details Date Type Department Care Team (Latest Contact Info) Description 12/12/2013 Anti-Coag Telephone [place] [phone] Yajaira Angel RN S/P total knee arthroplasty, [...] Therapeutic Range: 2.0-3.0 INR: 2.6 Drawn by: [facility] Patient presents with no signs [...] Results * (ABNORMAL) External Lab Results (12/12/2013) INR, POC 2.6(Externa l Lab) 0.9 - 1.1 12/12/2013 Historical Provider CHEMISTRY ORDERAB LES documented in this encounter Visit Diagnoses Diagnosis S/P total knee arthroplasty, left documented in this encounter Care Teams Commissioning Manager Relationship Specialty Start Date End Date Ashley Calixto MD [address] [place] [address] PCP - General 12/21/11 12/10/14 documented as of this encounter
--- OUTSIDE RECORDS SUMMARY | 2024-02-26 21:31 | XMS_ITS | Encounter Summary ---
Author Organization [facility] [place] [address] Care Team Providers Care Feather Mixer Name Role Phone Ashley Calixto MD Primary Care Provider [phone] Encounter Details Date Type Department Care Team (Late st Contact Info) Description 09/18/2013 Orders [place] [address] Lj Braden MD [facility] ORTHOPAEDIC [place] [address] Left knee pain (Primary Dx) Social History [...] leg documented in this encounter Care Teams Feather Mixer Relationship Specialty Start Date End Date Ashley Calixto MD [facility] [address] [place] [address] PCP - General 12/21/11 12/10/14 documented as of this encounter
--- OUTSIDE RECORDS SUMMARY | 2024-02-26 21:31 | XMS_ITS | Encounter Summary ---
[place] [address] Care Team Providers Care Primer Expeditor And Drier Name Role Phone Ashley Calixto MD Primary Care Provider [phone] Encounter Details Date Type Department Care Team (Late st Contact Info) Description 11/21/2013 8:30 AM EDT [place] [address] Social History Tobacco Use Types Packs/Day Years [...] on filedocumented in this encounter Care Teams Primer Expeditor And Drier Relationship Specialty Start Date End Date Ashley Calixto MD [facility] [address] [place], [place] [id number] PCP - General 12/21/11 12/10/14 documented as of this encounter
--- OUTSIDE RECORDS SUMMARY | 2024-02-26 21:31 | XMS_ITS | Encounter Summary ---
Author Organization [facility] [place] [address] Care Team Providers Care Software Development Intern Name Role Phone Ashley Calixto MD Primary Care Provider [phone] Reason for Visit * Reason Onset Date Comments Medication Refill 12/10/2013 Encounter Details Date Type Department Care Team (Late st Contact Info) Description 12/10/2013 Refill [place] [address] Mihir Herrera MD [facility] [place] [address] Knee joint replacement by other means (Primary [...] hours. He visited the pain clinic at [facility] to discuss pain management in this post [...] If so, which one? [facility] in [place], [place] If not, are you coming to pick this up? Or, would you like this mailed to your home. Best number to reach person calling? [phone] patient went to pain management this am, [...] Primary documented in this encounter Care Teams Software Development Intern Relationship Specialty Start Date End Date Ashley Calixto MD [address] [place] [address] PCP - General 12/21/11 12/10/14 documented as of this encounter
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
--- OUTSIDE RECORDS SUMMARY | 2024-02-26 21:31 | XMS_ITS | Encounter Summary ---
Author Organization [facility] Address [facility] [place] [place] [address] Care Team Providers Care Stove Polisher Name Role Phone Reece Calixto MD Primary Care Provider [phone] Reason for Referral * Consultation (Routine) - Closed by system - Referral Specialty Diagnoses / Procedures Referred By Casey reyes Referred To Contact Orthopaedic Surgery Diagnoses S/P total knee arthroplasty, left Malika Marlow PA [facility] [place] [address] Referral ID Status Reason Start Date Expiration Date Visits Requested Visits Authorized [id number] Closed by system - Referral Assume Subset of Care 12/05/2013 06/03/2014 1 1 Encounter Details Date Type Department Care Team (Latest Contact Info) Description 12/02/2013 5:43 AM EDT - 12/05/2013 5:37 PM EDT Hospital Encounter [address] [place] [address] Charis Herrera MD [facility] [place] [address] S/P total knee arthroplasty, left Discharge Disposition: [...] The INR should be reported to the [facility] Ortho clinic at [phone], and you will be informed of any [...] sennakot, to factilitate a bowel movement. An wgyg-wro-zzjguxa medication, miralax can also beused if needed [...] 1. You will have followup appointments at [facility] as indicated in Future Appointments and Orders. You will have an xray prior to those appointments so please come to Radiology, desk 3T, 1 hour BEFORE your appointment for those x- rays. (at 9:10 am on Jan 02) Future Appointments Date Time [facility] Department Center 01/02/2014 10:10 AM Charis Herrera [...] Alves on December 10 at 9:15 at [facility]. 3. Keep you appointment with you [...] Patient discharged home with VNA services from [facility]. Paperwork faxed to [facility]. * Chu Castro RN - 12/05/2013 3:19 PM EDT Chart reviewed and met with pt who is ready for d/c home. Pt requests [facility] for services. I explained to pt that his WC info was mad available by EVARISTO Ha in OCM at [facility] and I would give this info to [facility] to see if they can get payment but since he wants to d/c homenow his Medicaid should cover services. He is on Coumadin and will nee PT/INR Fri, then q M&TH,SR in 10- 14 days, and Home PT 3xwk. Pt has the DME he needs. * Abran Chun MD - 12/05/2013 1:50 PM EDT Acute Pain Service - Daily Visit Note Patient Name: Zack Sousa The pt was seen this AM sitting in a chair comfortably. His fentanyl DIRECTOR OF MARKET INTELLIGENCE was discontinued and he had been wearing [...] up appointment with Dr. Jo Alves at [facility] on 12/10/13 at 0915 4. We will be signing off Plan was discussed with primary team. Please call with any questions or concerns. Consult service will continue to follow patient . Recommendations as above. Please page if further consultation required. HECTOR ATKINSON MD 12/05/2013 Acute Pain Service Pager: [phone] I have seen and examined the patient, providing arceo components as outlined below. I have reviewed the resident???s above note; my evaluation of the patient is below: I was presnt through the fellows evaluation and plans and agree with them. * Ihsan Islas, [place] - 12/05/2013 12:35 PM EDT Physical Therapy [...] ARTHROPLASTY performed by Charis Herrera MD at [facility] OR Social History: Patient lives with his GF and 2 young boys and 2 teenagers. 1 flight of stairs to enter. 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 S/P Left total knee arthroplasty, 12/02/13. Do It Original V43.65 Interim/Subjective: Pt. With improved with pain [...] DOI: 12/30/2010 To: L Knee/Low Back Employer: [employer] Ins. Co.: [place] Claim: [id number] [employer] Supervisor: Idalia Chauhan NCM: No NCM as of 12/04/2013 * Tri Briceño RN - 12/04/2013 2:44 PM EDT This is a 43 yo gentleman who underwent L TKA with Dr Herrera on 12/03/13. Pt [place] [employer] insurance listed however pt explains this is workers comp thru [place]. CRC confirming information. Met with pt his SO and 2 young children this afternoon. He is OOB and has IV in place at this time. Pain reports mod at this time. Patient lives with his GF and 2 young boys and 2 teenagers. 1 flight of stairs to enter. 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 We discussed need for FWW for use at home and he has no preference for vendor although IF WC- they may have specific vendors they prefer. Will await confirmation of WC before completing VNA and DME orders. ADDENDUM: Received confirmation WC. Tel Call to compressor operator adjuster [employer] Supervisor: Idalia Chauhan We discussed she has approved securing FWW and 3 in 1 commode from [facility] facility to avoid delay in d/c. She will confirm appropriate in network VNA services. Provided WC with contact info for Chu Castro RN who will be following pt tomorrow. Will secure DME VNA orders still need to be completed once agency finalized. * Ihsan Islas, MELANGEUR OPERATOR - 12/04/2013 1:18 PM EDT Physical Therapy [...] ARTHROPLASTY performed by Charis Herrera MD at [facility] Social History: Patient lives with his GF and 2 young boys and 2 teenagers. 1 flight of stairs to enter. 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 Objective: Vitals: SpO2: WNL, HR WNL Most recent Hgb value: 10.3 Pain: Moderate to severe with exercises, moderate with ambulation, DIRECTOR OF MARKET INTELLIGENCE x 2 Strength: 3/5, LAQ Functional Mobility: [...] treatment: 25 minutes for therapeutic functional IHSAN ISLAS, [place] Pager: [phone] * Florencio Davenport PA - 12/04/2013 6:56 [...] of fentanyl and placed on a fentanyl DIRECTOR OF MARKET INTELLIGENCE with improved control. He has a history [...] of fentanyl and placed on a fentanyl DIRECTOR OF MARKET INTELLIGENCE with improved control now. Recommendations: Pending APS [...] 2 doses of fentanyl 50mcg administered and DIRECTOR OF MARKET INTELLIGENCE of dilaudid started. Pt stated DIRECTOR OF MARKET INTELLIGENCE of dilaudid was ineffective. notified and DIRECTOR OF MARKET INTELLIGENCE switched to fentanyl and one time 75 [...] bolus doses of fentanyl and a dilaudid DIRECTOR OF MARKET INTELLIGENCE with essentially maximum settings for pain control. This morning his DIRECTOR OF MARKET INTELLIGENCE was d/c'd and his femoral nerve catheter [...] PO dosing of dilaudid was doubled to 12 q4h PRN with fentanyl boluses forbreakthrough, however, when it became clear that his pain was still not well controlled after 24mg oral dilaudid and multiple fentanyl boluses he was put back on the dilaudid DIRECTOR OF MARKET INTELLIGENCE. He continued to complain of extreme pain and appeared uncomfortable and his DIRECTOR OF MARKET INTELLIGENCE settings were adjusted multiple times until he was on maximum dilaudid DIRECTOR OF MARKET INTELLIGENCE settings. He received a 75mcg bolus of fentanyl, which provided some relief. His diluadid DIRECTOR OF MARKET INTELLIGENCE was d/c'd and he was placed on a fentanyl DIRECTOR OF MARKET INTELLIGENCE with a 25mcg demand dosewhich finally controlled [...] control was eventually achieved with a fentanyl DIRECTOR OF MARKET INTELLIGENCE with high settings. Plan: - APS consult in the morning - continue fentanyl DIRECTOR OF MARKET INTELLIGENCE until adequate PO regimen is established - discussed with orthopedic surgery senior resident Melany Acevedo MD PGY-1 Pager #[phone] 12/04/2013 1:21 AM * Jose Juan Moon [...] list reviewed Assessment: Peripheral nerve catheter and DIRECTOR OF MARKET INTELLIGENCE for post-operative pain control, currently with good pain control. Patient being transitioned to oral pain medications. Patient requests d/c of FNC. Plan: ?? Peripheral nerve catheter was removed. Tip was intact. No bleeding, hematoma or erythema at the insertion site. ?? Patient was instructed to contact Regional Anesthesia Team ([id number]) for any unresolved sensory or motor deficits. ?? Thank you for the opportunity to have participated in the care of this patient. JOSE JUAN MOON MD Regional Team pager [phone] * Charis Herrera MD - 12/03/2013 6:54 [...] oral oxycodone to dilaudid and will maintain DIRECTOR OF MARKET INTELLIGENCE for now until good pain control achieved with oral meds. The patient may need switch from oral oxycodone to dilaudid and will maintain DIRECTOR OF MARKET INTELLIGENCE for now until good pain control achieved [...] plan as outlined. CHARIS HERRERA MD * Lamar Ric T - 12/02/2013 4:33 PM EDT Orthopaedic Surgery Post-Operative Progress Note Patient: Zack Sousa s/p Surgery: 12/02/2013 [id number] Procedure(s) (LRB): @TOTAL KNEE ARTHROPLASTY (Left) MODIFIER: ATTUNE STABILIZED ROTATING PLATFORM DEPUY (Left) Surgeon(s) and Role: * Charis Herrera MD - Primary * Florencio Davenport PA - Physician Buggy Driver: 2 Hr 16 Min 40 Sec * [...] controlled. - Continue all post-operative care. RIC SOTO MD 12/02/2013 4:34 PM * Elfego Garcia RN - 12/02/2013 4:10 PM EDT Patient s/p L TKA. Patient AOx 4, HR regular, lung sounds clear, positive bs, lbm 12/02/13, laurent draining clear, yellow urine. +csmt to all extremities. Dressing clean dry and intact. Pain 5/10 at this time, dilaudid DIRECTOR OF MARKET INTELLIGENCE controlling pain. Pt has dangled on edge of bed. Patient oriented to room, call gonzalez to bedside. I agree with previous nurse assessment, please see flowsheet for full assessment.Will continue to monitor ELFEGO GARCIA RN * Shanice Spann RN - 12/02/2013 3:00 PM EDT [facility] bed from pacu s/p L TKA. Patient AOx 4, HRR, , lung sounds diminished, hypoactive bs, lbm 12/01/13, laurent draining clear yellow urine. +csmt to all extremities. Dressing clean dry and intact. Constavac infusing on arrival. Pain 7/10 at this time, 1x block and dilaudid DIRECTOR OF MARKET INTELLIGENCE controlling pain. Patient oriented to room, call gonzalez to bedside, please see flowsheet for full assessment. Orders were not reviewed on arrival- YOUTH MANAGER Nisha notified. Will continue to monitor SHANICE SPANN [...] Zack Sousa Patient Age: 43 y.o. Language: Canadian Race: White Ethnicity: Not nor Admit date: 12/02/2013 Discharge date and time: 12/05/2013 Attending Physician: Charis Herrera MD Discharge Physician: Charis Herrera MD Follow-up Recommendations for Providers: Please see patient discharge instructions for additional details. Future Appointments Date Time Provider Department Center 01/02/2014 10:10 AM Charis Herrera MD [facility] None Inpatient Provider Contact Information: Charis Herrera MD Joints: [phone] After hours and weekends, call [facility] Lens Shaper Grinder, , and have Orthopedic resident paged. Discharge [...] Primary * Florencio Davenport PA - Physician Buggy Driver History of Presentation: The patient presented to [...] surgical site was marked with a green [place] in the pre-op area Hospital Course: The [...] in consultation by ACUTE PAIN SERVICE on 10/8. On dayof discharge patient he was seen [...] up appointment with Dr. Jo Alves at [facility] on 12/10/13 at 0915 4. [...] Rate: [95-106] Blood Pressure BP: 129/65 mmHg @[id number]@ Respiratory Rate Resp: 16 Resp: [16-19] SpO2 SpO2: 95 % @@ Art BP BP (Arterial Line): -- Functional and Cognitive Status: Patient ambulating with assistive device. Cognitively intact. Important Studies and Lab Data: Labs: Last 3 wbc, hgb, hct plt Recent Labs Basename 12/05/1343412/04/1335312/03/13420 WBC 13.3* 15.0* 13.0* HGB 11.1* 10.3* [...] The INR should be reported to the [facility] Ortho clinic at [phone], and you will be informed of any [...] sennakot, to factilitate a bowel movement. An irti-rdn-thdwlbt medication, miralax can also beused if needed [...] 1. You will have followup appointments at [facility] as indicated in [...] Alves on December 10 at 9:15 at [facility]. 3. Keep you appointment with you physician who prescribes your suboxone on December 16. He will direct your restart. Future Appointments and Orders Future Appointments: Provider: Department: Dept Phone: Center: 01/02/2014 10:10 AM Charis Herrera MD Orthopaedics [phone] None Joint Appt Questionnaire [facility] Orthopaedics [phone] None Future Orders Please Complete By Expires Referral for Anticoagulation Monitoring [UHS910 Custom] Process Instructions: If no progress note charted, please enter Clinical details in comments. Scheduling Instructions: Comments: Questions: Responses: My question or request is: patient going with lovenox bridge. Risk Factors: Responsible Group [facility] Next due INR 12/06/2013 INR Goal Target End Date 12/30/2013 Referral to Home Health - at DISCHARGE [[id number] CPT(R)] Process Instructions: Scheduling Instructions: Comments: [facility] PHONE: [phone] FAX: [phone] DISCHARGE DOCUMENTATION FOR VNA SERVICES (INCLUDING THOSE PATIENTS WITH MEDICARE COVERAGE BEING DISCHARGED HOME WITH VNA SERVICES AND THOSE PATIENTS WITH MEDICARE COVERAGE WHO ARE BEING DISCHARGED HOME WITH HOSPICE SERVICES) Zack Sousa [address] [facility] [id number] (home) Telephone Information: Financial Processing Clerk: In discussion with the attending physician, it is certified that this patient is under their care and that they, or a nurse practitioner, clinical nurse specialist or physician's entry level assistant manager who is working directly with them, [...] for home health services. HOME HEALTH AGENCY: [facility] Home care orders for Total KneeArthroplasty: 1.RN: Draw PT/INR as follows: PER MD ORDERS. Please draw INR daily until INR is 1.4 or greater. Patient will need lovenox injection if INR is less than 1.4 Thereafter, PT/INR: every Monday and PT/INR results to be called and faxed as follows Mon-Mon Ortho anticoagulation (Coumadin) clinic @ [facility]: ; Sat/Sun: if the PT/INR is drawn on the weekend, call the results to the Orthopedic Resident on callat [phone] for Coumadin dose Point of care testing [...] MD [facility] [address] [place] [address] All A agencies which cover the area of patient's residence have been reviewed, either verbally tamir writing, and patient/family have chosen the indicated home health care agency for home services. Questions: Responses: Agency name and contact information [facility] Patient location post discharge home What services are requested Registered Nurse Physical Therapy Start date Responsible MD post discharge contact info Primary Care Provider: REECE CALIXTO MD [phone] * Initial Assessments - Omega Orellana, OT [...] ARTHROPLASTY performed by Charis Herrera MD at [facility] OR Social History: Social History: [...] girlfriend assist him with task- including HALEY thomase mgmt. ?? Pt was able to don [...] minutes Total timed interventions: 0 minutes Pager: [phone] OMEGA ORELLANA OT 12/05/2013 Occupational Therapy Rehabilitation Department * Consult Note - Abran Chun MD - 12/04/2013 11:05 AM EDT Acute Pain Service Consultation Pt Age: 43 y.o. Date of Consultation: 12/04/2013 Consult Service: Orthopedics Place of Service: [facility] Responsible Attending: Javier Hayden/Associate Provider: Lamar Consultation [...] oral pain meds along with a dilaudid DIRECTOR OF MARKET INTELLIGENCE. He was placed on a fentanyl DIRECTOR OF MARKET INTELLIGENCE the morning of 12/04 and has since [...] ARTHROPLASTY performed by Charis Herrera MD at [facility] OR ADR/Allergies: Allergies Allergen Reactions [...] Intravenous, Q1 Min PRN, Orlando Acevedo MD; DIRECTOR OF MARKET INTELLIGENCE arceo, , Intravenous, Continuous PRN, Orlando Acevedo MD; fentaNYL 50 mcg/mL DIRECTOR OF MARKET INTELLIGENCE 30 mL, , Intravenous, PCAOnly, Orlando Acevedo MD; warfarin (COUMADIN) tablet 7.5 mg, 7.5 mg, Oral, Once, Lis CameronAIRPLANE FLIGHT ATTENDANT SUPERVISOR; [COMPLETED] enoxaparin (LOVENOX) injection 40 mg, 40 mg, Subcutaneous, Once, Lis Cameron, AIRPLANE FLIGHT ATTENDANT SUPERVISOR, 40 mg at 12/04/13 1055 diaZEPam (VALIUM) tablet 5 mg, 5 mg, Oral, Q6H PRN, Lis Cameron AIRPLANE FLIGHT ATTENDANT SUPERVISOR; [DISCONTINUED] HYDROmorphone (DILAUDID) 1 mg/mL DIRECTOR OF MARKET INTELLIGENCE 30 mL, , Intravenous, DIRECTOR OF MARKET INTELLIGENCE Only, Orlando Acevedo MD; [DISCONTINUED] fentaNYL 50 mcg/mL DIRECTOR OF MARKET INTELLIGENCE 30 mL, , Intravenous, DIRECTOR OF MARKET INTELLIGENCE Only, Orlando Acevedo MD, 1,500 mcg at [...] mg, Oral, Q3H PRN, Nisha, Lis P, AIRPLANE FLIGHT ATTENDANT SUPERVISOR; [DISCONTINUED] oxyCODONE (ROXICODONE) immediate release tablet 10 mg, 10 mg, Oral, Q3H PRN, Lis Cameron P, AIRPLANE FLIGHT ATTENDANT SUPERVISOR; [DISCONTINUED] oxyCODONE (ROXICODONE) immediate release tablet 15 mg,15 mg, Oral, Q3H PRN, Lis Cameron P, AIRPLANE FLIGHT ATTENDANT SUPERVISOR, 15 mg at 12/03/13 1125 [DISCONTINUED] HYDROmorphone (DILAUDID) injection 0.5 mg, 0.5 mg, Intravenous, Once, Alva Cameron, AIRPLANE FLIGHT ATTENDANT SUPERVISOR; [DISCONTINUED] HYDROmorphone (DILAUDID) tablet 2-6 mg, 2-6 mg, Oral, Q3H PRN, Lis Cameron P, AIRPLANE FLIGHT ATTENDANT SUPERVISOR, 6 mg at 12/03/13 1751; [DISCONTINUED] HYDROmorphone (DILAUDID) 1 mg/mL DIRECTOR OF MARKET INTELLIGENCE 30 mL, , Intravenous, DIRECTOR OF MARKET INTELLIGENCE Only, Orlando Acevedo MD, 30 mg at 12/03/13 2130 [DISCONTINUED] diphenhydrAMINE (BENADRYL) injection 25 mg, 25 mg, Intravenous, Q30 Min PRN, Orlando Acevedo MD; [DISCONTINUED] prochlorperazine (COMPAZINE) injection 5 mg, 5 mg, Intravenous, Q30 MinPRN, Orlando Acevedo MD; [DISCONTINUED] nalOXone (NARCAN) injection 0.2 mg, 0.2 mg, Intravenous, Q1 Min PRN, Orlando Acevedo MD; [DISCONTINUED] DIRECTOR OF MARKET INTELLIGENCE arceo, , Intravenous, Continuous PRN, Tiny Acevedo MD [DISCONTINUED] HYDROmorphone (DILAUDID) 1 mg/mL DIRECTOR OF MARKET INTELLIGENCE 30 mL, , Intravenous, DIRECTOR OF MARKET INTELLIGENCE Only, Orlando Acevedo MD; ROpivacaine (NAROPIN) 2 mg/mL for AmbIT, , Perineural, Continuous, Jose Juan Moon MD, Last Rate: 2 mL/hr at 12/02/13 1042, 2 mL at 12/02/13 1042; glipiZIDE (GLUCOTROL) CR tablet 10 mg, 10 mg, Oral, Daily, Florencio Davenport PA, 10 mg at 12/04/13 0819 metFORMIN (GLUCOPHAGE) tablet 1,000 mg, 1,000 mg, Oral, BID WC, Ethel, Florencio D, PA, 1,000 mg at 12/04/13818; lisinopril (PRINIVIL;ZESTRIL) tablet 40 mg, 40 mg, Oral, Daily, Ethel, Florencio D, PA, 40 mg at 12/04/13818; hydrochlorothiazide (HYDRODIURIL) tablet 25 mg, 25 mg, Oral, Daily, Ethel, Florencio D, PA, 25 mg at 12/04/13818; dextrose 50% injection 25-50 mL, 12.5-25 g, Intravenous, Q1H PRN, EthelFlorencio, PA glucagon (human recombinant) injection 1 mg, 1 mg, Intramuscular, Q1H PRN, Ethel, Florencio D, PA; sodium chloride 0.9 % flush 5 mL, 5 mL, Intravenous, BID, Ethel, Florencio D, PA, 5 mL at 12/04/13819; sodium chloride 0.9 % flush 5-20 mL, 5-20 mL, Intravenous, Q1 Min PRN, Kulwant Davenporto D, PA; lidocaine (XYLOCAINE) 10 mg/mL (1 %) injection 3 mg, 0.3 mL, Subcutaneous, Once PRN, Kulwant Davenporto D,PA polyethylene glycol (MIRALAX) packet 17 g, 17 g, Oral, BID, Ethel, Florencio D, PA, 17 g at ; senna-docusate (PERICOLACE) 8.6-50 mg per tablet 1-4 tablet, 1-4 tablet, Oral, BID, Ethel, Florencio D, PA, 2 tablet at 12/04/13818; lactulose (CHRONULAC) 20 gram/30 mL oral solution 20-40 g, 30-60 mL, Oral, Daily PRN, TehelAlessioFlorencio D, PA; bisacodyl (DULCOLAX) EC tablet 10 mg, 10 mg, Oral,BID PRN, EthelAlessioFlorencio D, PA bisacodyl (DULCOLAX) suppository 10 mg, 10 mg, Rectal, Daily PRN, Ethel, Florencio D, PA; multivitamin Tleh-Mz-WI-Min (THERAPEUTIC-M) 27-0.4 mg tablet 1 tablet, 1 tablet, Oral, Daily, Florencio Davenport, PA, 1 tablet at 12/04/13 0819; ondansetron (ZOFRAN) tablet 4 mg, 4 mg, Oral, Q8H PRN, Florencio Davenport, PA; ondansetron (ZOFRAN) injection 4 mg, 4 mg, Intravenous, Q8H PRN, Florencio Davenport, PA insulin aspart (novoLOG) VIAL injection 1-4 Units, 1-4 Units, Subcutaneous, Q4H RUBIA, Florencio Davenport, PA, 2 Units at 12/03/13 0424; esomeprazole (NexIUM) capsule 40 mg, 40 mg, Oral, Daily, EthelFlorencio snowden, PA, 40 mg at 12/04/13 0819; warfarin (COUMADIN) daily order reminder, , Oral, Q24H, Florencio Davenport, PA; atorvastatin (LIPITOR) tablet 10 mg, 10 mg, Oral, QPM, Charis Herrera MD, 10 mg at 12/03/13 1719 [DISCONTINUED] acetaminophen (TYLENOL) tablet 1,000 mg, 1,000 mg, Oral, Q8H RUBIA, Florencio Davenport,PA, 1,000 mg at 12/04/13 0605 Family History: [...] tobacco: Never Used Comment: stopped on the 8th, using a patch ??? Alcohol Use: Yes Comment: Not drinking at this time. VERY OCCASIONAL ??? Drug Use: No Comment: Clean and sober since 03/10. Hx IV drugs [id number]. Hx intranasal drugs [id number]. ??? 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 He injured left knee and underwent arthroscopy in February. Knee is not getting better. He continues to be out on worker's compensation.He has hx of IVDU [id number] 2012Hx of intranasal drug use 1986-1999Has 2 tattoos he received in [facility]pc in 1989 and 1999.Pierced ear in 1992 at home, shared needles.He sees psychiatrist, Dr. Baron, in [facility].He sees drug counselor Yanira Chahal x [...] take full effect) 3. Stop the fentayl DIRECTOR OF MARKET INTELLIGENCE 6 hours after applying the patch 4. Start oxycodone 5-15mg every 3-4 hours I have discussed with the pt the risks and side effects of opioid medications that include, but arenot limited to: group home abuse potential, constipation and sexual dysfunction. Consult service will continue to follow patient. Recommendations are above, please page if further consultation required. HECTOR ATKINSON MD 12/04/2013 # [id number] beeper # [id number]- APS I have seen and examined the [...] states pain is a 6/10. Administered fentanyl DIRECTOR OF MARKET INTELLIGENCE. Will continue to monitor. * Plan of [...] Clinical Practice Guideline (CPG) Patient tolerating fentanyl DIRECTOR OF MARKET INTELLIGENCE well with settlings 25 mcg/7 min/1500 mcg. [...] ARTHROPLASTY performed by Charis Herrera MD at [facility] Social History: Patient lives with his GF and 2 young boys and 2 teenagers. 1 flight of stairs to enter. Ind amb MELANGEUR OPERATOR Precautions/Special Considerations: WBAT R L/E Post-operative course: [...] treatment: 0 minutes janelle WU, PT Pager: [phone] * Plan of Care - Elfego Garcia [...] states pain is a 3/10. Administered dilaudid DIRECTOR OF MARKET INTELLIGENCE and oral oxycodone. Will continue to monitor. [...] reports no relief from scheduled tylenol, dilaudid DIRECTOR OF MARKET INTELLIGENCE and oxycodone 15mg. paged, in to see pt and new orders given. Dilaudid DIRECTOR OF MARKET INTELLIGENCE dose increased and one time order for [...] Herrera MD - 12/02/2013 9:39 AM EDT [facility] Operative Note Patient Name: Zack Sousa : [id number] MR#: [id number] Case Date: 12/02/2013 Surgeon: Surgeon(s) and Role: * Charis Herrera MD - Primary * Florencio Davenport PA - Physician Buggy Driver Preoperative diagnosis: Left DJD Postoperative diagnosis: Left [...] Implant Name Type Inv. Item Serial No. Shot Blaster Lot No. LRB No. Used Action CEMENT,BNE,CMW 1,GNTA,40GM ([id number]) - [id number] IMPLANTS CEMENT,BNE,CMW 1,GNTA,40GM ([id number]) [employer] Engineer - [id number] Left 1 Implanted TRAY,ATTUNE,RP,TIB,BASE,SZ7 ([id number]) (AUTOREQ) - [id number] IMPLANTS TRAY,ATTUNE,RP,TIB,BASE,SZ7 ([id number]) (AUTOREQ) [employer] Engineer - [id number] Left 1 Implanted INSER,ATTUNE,PS,FEM,SZ7,LT ([id number]) (AUTOREQ) - [id number] IMPLANTS INSER,ATTUNE,PS,FEM,SZ7,LT ([id number]) (AUTOREQ) [employer] Engineer - 3527 [id number] Left 1 Implanted DIXON,GIANNI,L,KOKO,41MM ([id number]) (AUTOREQ) - [id number] IMPLANTS DIXON,GIANNI,MDL,KOKO,41MM ([id number]) (AUTOREQ) [employer] Mechanical Engineer - [id number] Left 1 Implanted INSER,ATTUNE,PS,RP,SZ7,7MM ([id number]) (AUTOREQ) - [id number] IMPLANTS INSER,ATTUNE,PS,RP,SZ7,7MM ([id number]) (AUTOREQ) [employer] Engineer - [id number] Left 1 Implanted COMPLICATIONS: None. SPECIMENS: Bone [...] surgical site was marked with a green [place] in the pre-op area. DESCRIPTION OF PROCEDURE: [...] mallet. Excess cement was removed with a Mcgregor. We then placed the cement onto the anterior and distal aspects of the femur. The cement was placed on the posterior aspect of the prosthetic condyles. The femoral component was then placed and impacted into position. Excess cement was removed with a Mcgregor. The polyethylene trial was then placed and the knee brought out to full extension where it was held for the entire polymerization time. Cement was then pressurized into the patellar bone and the patellar component placed. The patella was clamped. Excess cement was removed with a Mcgregor. After all cement had hardened, the knee [...] the anesthesiology [facility] devices were placed. The [...] Glucose, POC 89 60 - 199 mg/dL [facility] Comment: Supplemental ranges: <140 mg/dL before meals <180 mg/dL all other times of the day Blood specimen (specimen) 12/05/2013 4:18 PM EDT 12/05/2013 4:18 PM EDT Charis Herrera MD POINT OF CARE TEST O HRAINDER Performing Organization Address [facility] Co de Phone Number [facility] * POCT Glucose (12/05/2013 11:35 AM EDT) Glucose, POC 100 60 - 199 mg/dL [facility] Comment: Supplemental ranges: <140 mg/dL before meals <180 mg/dL all other times of the day Blood specimen (specimen) 12/05/2013 11:35 AM EDT 12/05/2013 11:35 AM EDT Charis Herrera MD POINT OF CARE TEST O JAYLONERATESSA [facility] * POCT Glucose (12/05/2013 7:07 AM EDT) Glucose, POC 105 60 - 199 mg/dL [facility] Comment: Supplemental ranges: <140 mg/dL before meals <180 mg/dL all other times of the day Blood specimen (specimen) 12/05/2013 7:07 AM EDT 12/05/2013 7:07 AM EDT Charis Herrera MD POINT OF CARE TEST O RDERABLES CERNER MILLENNIUM * (ABNORMAL) Differential, Automated (12/05/2013 4:35 AM EDT) Neutrophil % 54.5 % CERNER MILLENNIUM Neutrophil Absolute 7.23(H) 1.50 - 6.30 x10(3)/mc [...] MD HEMATOLOGY ORDERABLE S RANDY MORALES * Prothrombin Time (12/05/2013 4:35 AM EDT) Prothrombin Time 14.7 12.5 - 15.5 sec CERNER MILLENNIUM Comment: [facility] Transfusion Committee Guidelines: INR less than [...] Charis Herrera MD HEMATOLOGY ORDERABLE S CERNER Anytime DDENNIUM * (ABNORMAL) Basic Metabolic Panel (non-fasting) (12/05/2013 4:35 AM EDT) Glucose 96 60 - 199 mg/dL CERNER MILLENNIUM Comment:Diabetes: >=200 mg/d L plus symptoms Blood Urea Nitrogen 11 10 - 20 mg/dL CERNER MILLENNIUM [...] the following links into your internet browser. [email or web address] [email or web address] [email or web address] Blood specimen (specimen) 12/05/2013 4:35 AM EDT 12/05/2013 4:43 AM EDT Narrative Resulting Agency Comment Spec In Lab Charis Herrera MD CHEMISTRY ORDERABLES Performing Organization Address [facility] Co de Phone Number [facility] * POCT Glucose (12/05/2013 3:55 AM EDT) Glucose, POC 104 60 - 199 mg/dL [facility] Comment: Supplemental ranges: <140 mg/dL before meals <180 mg/dL all other times of the day Blood specimen (specimen) 12/05/2013 3:55 AM EDT 12/05/2013 3:55 AM EDT Charis Herrera MD POINT OF CARE TEST O RDERABLES Performing Organization Address [facility] de Phone Number [facility] * POCT Glucose (12/04/2013 11:43 PM EDT) Glucose, POC 94 60 - 199 mg/dL [facility] Comment: Supplemental ranges: <140 mg/dL before meals <180 mg/dL all other times of the day Blood specimen (specimen) 12/04/2013 11:43 PM EDT 12/04/2013 11:43 PM EDT Charis Herrera MD POINT OF CARE TEST O RDERABLES Performing Organization Address [facility] Co de Phone Number [facility] * POCT Glucose (12/04/2013 7:29 PM EDT) Glucose, POC 120 60 - 199 mg/dL [facility] Comment: Supplemental ranges: <140 mg/dL before meals <180 mg/dL all other times of the day Blood specimen (specimen) 12/04/2013 7:29 PM EDT 12/04/2013 7:29 PM EDT Charis Herrera MD POINT OF CARE TEST O RDERABLES Performing Organization Address [facility] Co de Phone Number [facility] * POCT Glucose (12/04/2013 4:12 PM EDT) Glucose, POC 108 60 - 199 mg/dL [facility] Comment: Supplemental ranges: <140 mg/dL before meals <180 mg/dL all other times of the day Blood specimen (specimen) 12/04/2013 4:12 PM EDT 12/04/2013 4:12 PM EDT Charis Herrera MD POINT OF CARE TEST O HARINDER Performing Organization Address [facility] Co de Phone Number [facility] * POCT Glucose (12/04/2013 11:41 AM EDT) Glucose, POC 136 60 - 199 mg/dL [facility] Comment: Supplemental ranges: <140 mg/dL before meals <180 mg/dL all other times of the day Blood specimen (specimen) 12/04/2013 11:41 AM EDT 12/04/2013 11:41 AM EDT Narrative Authorizing Provider Result Daniela Herrera MD POINT OF CARE TEST O HARINDER Performing Organization Address [facility] de Phone Number [facility] * POCT Glucose (12/04/2013 7:07 AM EDT) Glucose, POC 126 60 - 199 mg/dL [facility] Comment: Supplemental ranges: <140 mg/dL before meals <180 mg/dL all other times of the day Blood specimen (specimen) 12/04/2013 7:07 AM EDT 12/04/2013 7:07 AM EDT Narrative Authorizing Provider Result Daniela Herrera MD POINT OF CARE TEST O HARINDER Performing Organization Address [facility] Co de Phone Number [facility] * (ABNORMAL) Hemoglobin A1c (12/04/2013 3:54 AM EDT) Hemoglobin A1c 6.7(H) <=5.6 % [facility] Comment: Reference Range: 4.3 - 5.6% [...] Mellitus, Diabetes Care 2013; 36: Suppl. 1, L34-86 Estimated Average Glucose 146 mg/dL [facility] Comment: eAG equivalents for HbA1c percentages: HbA1c(%) ?eAG(mg/dL) 6.0 ?126 6.5 ?140 7.0 ?154 7.5 ?169 8.0 ?183 8.5 ?197 9.0 ?212 9.5 ?226 10.0 ? 240 Limitations: The eAG calculation has not been validated on women, individuals below 18 years old and above 70 years old, and individuals with hemoglobinopathies. Additional resources are available on the ADA website: http://Fastgen.TinyCo/DHMCadacalc Blake KENNEY, Charley J, Gian R, et al. ??Translating the A1C assay into estimated average glucose values. ??Diabetes Care 2008:31(8):3869-3907. Blood specimen (specimen) 12/04/2013 3:54 AM EDT 12/04/2013 10:05 AM EDT Narrative Resulting Agency Comment Spec In Lab Charis Herrera MD CHEMISTRY ORDERABLES [facility] * (ABNORMAL) Differential, Automated (12/04/2013 3:54 [...] MD HEMATOLOGY ORDERABLE S Performing Organization Address [facility] de Phone Number RANDY LOVEIUM * Prothrombin Time (12/04/2013 3:54 AM EDT) Prothrombin Time 13.2 12.5 - 15.5 sec CERNER MILLENNIUM Comment: [facility] Transfusion Committee Guidelines: INR less than 2.0, PTT less than OR equal to 43.5 seconds, or Fibrinogen greater than or equal to 100 mg/dl indicate adequate procoagulant activity for hemostasis in patients without underlying bleeding disorders. International Normalization Ratio 0.9 0.9 - 1.1 CERJERE KNAPPENNIUM Blood specimen (specimen) 12/04/2013 3:54 AM EDT 12/04/2013 4:27 AM EDT Narrative Resulting Agency Comment Spec In Lab Charis Herrera MD HEMATOLOGY ORDERABLE S Performing Organization Address [facility] Co de Phone Number RANDY LOVEIUM * (ABNORMAL) Basic Metabolic Panel (non-fasting) (12/04/2013 3:54 AM EDT) Glucose 105 60 - 199 mg/dL [facility] MILLENNIUM Comment:Diabetes: >=200 mg/d L plus symptoms Blood Urea Nitrogen 10 10 - 20 mg/dL [facility] MILLENNIUM Creatinine 0.80 0.80 - 1.50 [...] the following links into your internet browser. [email or web address] You [email or web address] [email or web address] You [email or web address] Blood specimen (specimen) 12/04/2013 3:54 AM EDT 12/04/2013 4:27 AM EDT Narrative Resulting Agency Comment Spec In Lab Charis Herrera MD CHEMISTRY ORDERABLES RANDY MORALES * POCT Glucose (12/04/2013 3:45 AM EDT) [facility] Signature Glucose, POC 115 60 - 199 mg/dL CERNER MILLENNIUM Comment: Supplemental ranges: <140 mg/dL before meals <180 mg/dL all other times of the day Blood specimen (specimen) 12/04/2013 3:45 AM EDT 12/04/2013 3:45 AM EDT Charis Herrera MD POINT OF CARE TEST O RDERATESSA Performing Organization Address [facility] de Phone Number [facility] * POCT Glucose (12/03/2013 11:42 PM EDT) Glucose, POC 115 60 - 199 mg/dL [facility] Comment: Supplemental ranges: <140 mg/dL before meals <180 mg/dL all other times of the day Blood specimen (specimen) 12/03/2013 11:42 PM EDT 12/03/2013 11:42 PM EDT Charis Herrera MD POINT OF CARE TEST O RDERATESSA Performing Organization Address [facility] de Phone Number [facility] * POCT Glucose (12/03/2013 7:22 PM EDT) Glucose, POC 102 60 - 199 mg/dL [facility] MILLENNIUM Comment: Supplemental ranges: <140 mg/dL before meals <180 mg/dL all other times of the day Blood specimen (specimen) 12/03/2013 7:22 PM EDT 12/03/2013 7:22 PM EDT Charis Herrera MD POINT OF CARE TEST O HARINDER Performing Organization Address [facility] de Phone Number [facility] * POCT Glucose (12/03/2013 5:20 PM EDT) Glucose, POC 115 60 - 199 mg/dL [facility] MILLENNIUM Comment: Supplemental ranges: <140 mg/dL before meals <180 mg/dL all other times of the day Blood specimen (specimen) 12/03/2013 5:20 PM EDT 12/03/2013 5:20 PM EDT Charis Herrera MD POINT OF CARE TEST O RDERATESSA Performing Organization Address [facility] de Phone Number [facility] * POCT Glucose (12/03/2013 4:37 PM EDT) Glucose, POC 81 60 - 199 mg/dL [facility] Comment: Supplemental ranges: <140 mg/dL before meals <180 mg/dL all other times of the day Blood specimen (specimen) 12/03/2013 4:37 PM EDT 12/03/2013 4:37 PM EDT Charis Herrera MD POINT OF CARE TEST O RDERATESSA Performing Organization Address [facility] de Phone Number [facility] * POCT Glucose (12/03/2013 4:21 PM EDT) Glucose, POC 70 60 - 199 mg/dL [facility] Comment: Supplemental ranges: <140 mg/dL before meals <180 mg/dL all other times of the day Blood specimen (specimen) 12/03/2013 4:21 PM EDT 12/03/2013 4:21 PM EDT Charis Herrera MD POINT OF CARE TEST O HARINDER Performing Organization Address [facility] de Phone Number [facility] * POCT Glucose (12/03/2013 11:58 AM EDT) Glucose, POC 119 60 - 199 mg/dL [facility] Comment: Supplemental ranges: <140 mg/dL before meals <180 mg/dL all other times of the day Blood specimen (specimen) 12/03/2013 11:58 AM EDT 12/03/2013 11:58 AM EDT Narrative Authorizing Provider Result Daniela Herrera MD POINT OF CARE TEST O RDERATESSA Performing Organization Address [facility] de Phone Number [facility] * POCT Glucose (12/03/2013 7:19 AM EDT) Glucose, POC 139 60 - 199 mg/dL [facility] Comment: Supplemental ranges: <140 mg/dL before meals <180 mg/dL all other times of the day Blood specimen (specimen) 12/03/2013 7:19 AM EDT 12/03/2013 7:19 AM EDT Charis Herrera MD POINT OF CARE TEST O RDERABLES CERNER MILLENNIUM * (ABNORMAL) Differential, Automated (12/03/2013 4:21 AM [...] MD HEMATOLOGY ORDERABLE S Performing Organization Address City/[facility]/ZIP Co de Phone Number RANDY LOVEIUM * (ABNORMAL) Hemogram (12/03/2013 4:21 AM EDT) White Blood Cell 13.0(H) 4.0 - 10.0 [...] MD HEMATOLOGY ORDERABLE S Performing Organization Address [facility]/State/ZIP Co de Phone Number RANDY MORALES * Prothrombin Time (12/03/2013 4:21 AM EDT) Prothrombin Time 13.8 12.5 - 15.5 sec CERNER MILLENNIUM Comment: [facility] Transfusion Committee Guidelines: INR less than [...] MILLENNIUM * (ABNORMAL) Basic Metabolic Panel (non-fasting) (12/03/2013 [...] the following links into your internet browser. [email or web address] You [email or web address] [email or web address] Blood specimen (specimen) 12/03/2013 4:21 AM EDT 12/03/2013 4:27 AM EDT Narrative Resulting Agency Comment Spec In Lab Charis Herrera MD CHEMISTRY ORDERABLES Performing Organization Address [facility] de Phone Number [facility] * POCT Glucose (12/03/2013 3:54 AM EDT) Glucose, POC 185 60 - 199 mg/dL [facility] Comment: Supplemental ranges: <140 mg/dL before meals <180 mg/dL all other times of the day Blood specimen (specimen) 12/03/2013 3:54 AM EDT 12/03/2013 3:54 AM EDT Charis Herrera MD POINT OF CARE TEST O RDERABLES Performing Organization Address [facility] Phone Number [facility] * POCT Glucose (12/03/2013 12:06 AM EDT) Glucose, POC 154 60 - 199 mg/dL [facility] Comment: Supplemental ranges: <140 mg/dL before meals <180 mg/dL all other times of the day Blood specimen (specimen) 12/03/2013 12:06 AM EDT 12/03/2013 12:06 AM EDT Charis Herrera MD POINT OF CARE TEST O RDSTEVEN Performing Organization Address [facility] de Phone Number [facility] * POCT Glucose (12/02/2013 8:51 PM EDT) Glucose, POC 164 60 - 199 mg/dL [facility] Comment: Supplemental ranges: <140 mg/dL before meals <180 mg/dL all other times of the day Blood specimen (specimen) 12/02/2013 8:51 PM EDT 12/02/2013 8:51 PM EDT Charis Hrerera MD POINT OF CARE TEST O HARINDER Performing Organization Address [facility] de Phone Number [facility] * (ABNORMAL) POCT Glucose (12/02/2013 7:09 PM EDT) Glucose, POC 226(H) 60 - 199 mg/dL [facility] Comment: Supplemental ranges: <140 mg/dL before meals <180 mg/dL all other times of the day Blood specimen (specimen) 12/02/2013 7:09 PM EDT 12/02/2013 7:09 PM EDT Charis Herrera MD POINT OF CARE TEST O HARINDER Performing Organization Address [facility] Phone Number [facility] * Prothrombin Time (12/02/2013 4:46 PM EDT) Prothrombin Time 13.0 12.5 - 15.5 sec [facility] Comment: [facility] Transfusion Committee Guidelines: INR less than 2.0, PTT less than OR equal to 43.5 seconds, or Fibrinogen greater than or equal to 100 mg/dl indicate adequate procoagulant activity for hemostasis in patients without underlying bleeding disorders. International Normalization Ratio 0.9 0.9 - 1.1 [facility] Blood specimen (specimen) 12/02/2013 4:46 PM EDT 12/02/2013 4:53 PM EDT Narrative Resulting Agency Comment Spec In Lab Charis Herrera MD HEMATOLOGY ORDERABLE S Performing Organization Address [facility] de Phone Number [facility] * (ABNORMAL) POCT Glucose (12/02/2013 4:11 PM EDT) Glucose, POC 207(H) 60 - 199 mg/dL [facility] Comment: Supplemental ranges: <140 mg/dL before meals <180 mg/dL all other times of the day Blood specimen (specimen) 12/02/2013 4:11 PM EDT 12/02/2013 4:11 PM EDT Charis Herrera MD POINT OF CARE TEST O RDERATESSA Performing Organization Address [facility]/ZIP Co de Phone Number [facility] * POCT Glucose (12/02/2013 10:06 AM EDT) Glucose, POC 165 60 - 199 mg/dL [facility] Comment: Supplemental ranges: <140 mg/dL before meals <180 mg/dL all other times of the day Blood specimen (specimen) 12/02/2013 10:06 AM EDT 12/02/2013 10:06 AM EDT Charis Herrera MD POINT OF CARE TEST O HARINDER Performing Organization Address [facility] Co de Phone Number [facility] * Surgical Pathology Report (12/02/2013 9:56 AM EDT) Final Diagnosis ? [facility] ? Provider: ?? CHARIS HERRERA ?? Pt. Name: ?? ZACK SOUSA ? Acc #: ?[id number] ?Pt. ? Col Date: ?? 12/02/2013 ? /Sex: ?1970,(43 years),Male ? Rec Date: ?? 12/02/2013 ? LOC: ?3[facility]ST ? SURGICAL PATHOLOGY ? ---Pathologic Diagnosis--- ? A - Articular bone and soft tissue consistent with osteoarthritis, left ? knee bone and soft tissue. ?Gross surgical pathology examination. ? CR-0 ? 12/02/13 ? PPS ? 12/03/13 Verified by: ? Black DO, Aleida C. ? Pathologist ? (Electronic Signature) ? The [...] ? Left DJD 12/03/2013 10:07 AM EDT [facility] KNEE REGION STRUCTURE / Unknown 12/02/2013 9:56 AM EDT 12/02/2013 9:56 AM EDT Charis Herrera MD PATHOLOGY/CYTOLOGY O RDERABLES RANDY MORALES [facility] [place] [address] * Specimen to Pathology (surgical or derm) (12/02/2013 9:31 AM EDT) AP Specimen 12/02/2013 9:31 AM EDT 12/02/2013 9:31 AM EDT Narrative RANDY MORALES - 12/02/2013 9:31 AM EDT Specimen requisition ordered. ??Separate Pathology report to follow Charis Herrera MD PATHOLOGY/CYTOLOGY O RDERABLES Performing Organization Address [facility] Co de Phone Number [facility] * POCT Glucose (12/02/2013 7:26 AM EDT) Glucose, POC 139 60 - 199 mg/dL [facility] Comment: Supplemental ranges: <140 mg/dL before meals <180 mg/dL all other times of the day Blood specimen (specimen) 12/02/2013 7:26 AM EDT 12/02/2013 7:26 AM EDT Charis Herrera MD POINT OF CARE TEST O RDERABLES Performing Organization Address [facility] Co de Phone Number [facility] * APTT (12/02/2013 7:25 AM EDT) Partial Thromboplastin Time 29 25 - 35 sec [facility] Comment: Recommended therapeutic PTT range for full dose unfractionated heparin is 80-114 seconds. Blood specimen (specimen) 12/02/2013 7:25 AM EDT 12/02/2013 7:27 AM EDT Narrative Resulting Agency Comment Spec In Lab Sachi Fontanez MD HEMATOLOGY ORDERABLE S Performing Organization Address [facility] Co de Phone Number [facility] * Prothrombin Time (12/02/2013 7:25 AM EDT) Prothrombin Time 12.7 12.5 - 15.5 sec [facility] Comment: [facility] Transfusion Committee Guidelines: INR less than 2.0, PTT less than OR equal to 43.5 seconds, or Fibrinogen greater than or equal to 100 mg/dl indicate adequate procoagulant activity for hemostasis in patients without underlying bleeding disorders. International Normalization Ratio 0.9 0.9 - 1.1 [facility] Blood specimen (specimen) 12/02/2013 7:25 AM EDT 12/02/2013 7:27 AM EDT Narrative Resulting Agency Comment Spec In Lab Sachi Fontanez MD HEMATOLOGY ORDERABLE S RANDY MORALES documented in this [...] dose, On Henny 12/05/13 at 1000, Routine Given 12/05/2013 10:40 [...] NARESH COER: cabinet override fentaNYL 50 mcg/mL [employer] 30 mL Intravenous, [employer] ONLY, Starting on Mon12/04/13 at 0045, Until Mon12/04/13 at 0200 New Syringe/Cartridge 12/04/2013 12:50 AM EDT 1,500 mcg fentaNYL 50 mcg/mL [employer] 30 mL Intravenous, [employer] ONLY, Starting on Mon12/04/13 at 0230, Until [...] EDT 25 mg HYDROmorphone (DILAUDID) 1 mg/mL [employer] 30 mL Intravenous, [employer] ONLY, Starting on Mon12/02/13 at 1030, Until Mon12/02/13 at 2038, Recovery (Recovery-Hospital Unit) New Syringe/Cartridge 12/02/2013 10:20 AM EDT 30 mg HYDROmorphone (DILAUDID) 1 mg/mL [employer] 30 mL Intravenous, [employer] ONLY, Starting on Mon12/02/13 at 2100, Until Mon12/02/13 at 2149, Recovery (Recovery-Hospital Unit) Rate/Dose Change 12/02/2013 8:48 PM EDT 30 mg HYDROmorphone (DILAUDID) 1 mg/mL [employer] 30 mL Intravenous, [employer] ONLY, Starting on Mon12/02/13 at 2215, Until Mon12/03/13 at 1013, Recovery (Recovery-Hospital Unit) Rate/Dose Change 12/02/2013 9:56 PM EDT 30 mg HYDROmorphone (DILAUDID) 1 mg/mL [employer] 30 mL Intravenous, [employer] ONLY, Starting on Mon12/03/13 at 2100, Until Mon12/03/13 at 2321 New Syringe/Cartridge 12/03/2013 9:30 PM EDT 30 mg HYDROmorphone (DILAUDID) 1 mg/mL [employer] 30 mL Intravenous, [employer] ONLY, Starting on Mon12/03/13 at 2345, Until [...] 12/04/2013 8:19 AM EDT 1,000 mg multivitamin Swty-Zh-TF-Min (THERAPEUTIC-M) 27-0.4 mg tablet 1 tablet 1 [...] 2003, Until Henny 12/05/13 at 1937, Pain, moderate [...] ROpivacaine (NAROPIN) 2 mg/mL for AmbIT Perineural, Laterality: Left, Infusion Site: femoral, Basal Flow Rate (mL/hr): : 6 mL/hr, [employer] Bolus Amt: 4 mL, [employer] Bolus Frequency: 60 minutes, 1 Hour Dose Limit: : 12 mL New Bag 12/02/2013 10:42 AM EDT 2 [...] 5 mg, Oral, ONCE, 1 dose, On Tu12/03/13 at 1700, Routine Given 12/03/2013 5:19 PM [...] Garcia RN) 0819 (Given - Provider: Elfego Garcia, ELMA) 0807 (Given - Provider: Marcelina Sims, ELMA) [...] - Reason: Contraindicated)0356 (Not Given - Provider: Yqauelin Martines RN - Reason: Contraindicated - Comment: [...] Discontinued 08 (Given - Provider: Elfego Garcia RN)171 (Not Given - Provider: Elfego Garcia RN - Reason: See comment - Comment: BG 81) 08 (Given - Provider: Elfego Garcia RN)165 (Not Given - Provider: Elfego Garcia RN - Reason: Order parameters not met - Comment: BG 108) 08 (Given - Provider: Marcelina Sims RN)170 (Given - Provider: Marcelina Sims RN) multivitamin Snsn-Ie-TQ-Min (THERAPEUTIC-M) 27-0.4 mg tablet 1 tablet (CANCELED) 1 tablet, Oral, DAILY, First dose on Mon12/02/13 at 1630, Until Discontinued 818 (Given - Provider: Elfego Garcia RN) 818 (Given - Provider: Elfego Garcia RN) 806 (Given - Provider: Marcelina Sims RN) polyethylene [...] RN)2037 (Given - Provider: Elfego Garcia RN) 08 (Given - Provider: Marcelina Sims RN) senna-docusate [...] RN)2038 (Given - Provider: Elfego Garcia RN) 08 (Given - Provider: Marcelina Sims RN) warfarin [...] Order 12/03/2013 12/04/2013 12/05/2013 fentaNYL 50 mcg/mL DIRECTOR OF MARKET INTELLIGENCE 30 mL (CANCELED) Intravenous, DIRECTOR OF MARKET INTELLIGENCE ONLY, Starting on Mon12/04/13 at 0045, Until Mon12/04/13 at 0200 0050 (New Syringe/Cartridge - Provider: Naresh Rojo RN) fentaNYL 50 mcg/mL DIRECTOR OF MARKET INTELLIGENCE 30 mL (CANCELED) Intravenous, DIRECTOR OF MARKET INTELLIGENCE ONLY, Starting on Mon12/04/13 at 0230, Until Henny 12/05/13 at 0759 0230 (Rate/Dose Change - Provider: Naresh Rojo RN)1125 (Rate/Dose Change - Provider: Elfego Garcia RN)1129 (New Syringe/Cartridge - Provider: Elfego Garcia RN)2200 (New Syringe/Cartridge - Provider: Elfego Garcia RN) 0850 (Stopped - Provider: Marcelina Sims RN) HYDROmorphone (DILAUDID) 1 mg/mL DIRECTOR OF MARKET INTELLIGENCE 30 mL (CANCELED) Intravenous, DIRECTOR OF MARKET INTELLIGENCE ONLY, Starting on Mon12/03/13 at 2100, Until Mon12/03/13 at 2321 2130 (New Syringe/Cartridge - Provider: Naresh Rojo, RN) HYDROmorphone (DILAUDID) 1 mg/mL DIRECTOR OF MARKET INTELLIGENCE 30 mL (CANCELED) Intravenous, DIRECTOR OF MARKET INTELLIGENCE ONLY, Starting on Mon12/03/13 at 2345, Until [...] PRN, Starting on Mon12/04/13 at 0940, Until Mon12/05/13 at 1937, Anxiety, muscle spasms, Routine 1822 [...] (See Alternative - Provider: Marcelina Sims, ELMA)1256 (Given - Provider: Marcelina Sims, ELMA)1633 (See Alternative - Provider: Marcelina Sims RN) oxyCODONE (ROXICODONE) immediate release tablet 15 mg (CANCELED) 15 mg, Oral, EVERY 4 HOURS PRN, Starting on 12/02/13 at 1014, Until Mon12/03/13 at 1013, Pain, [...] Elfego Garcia RN)2345 (Given - Provider: Yaquelin Martines, ELMA) 0253 (See Alternative - Provider: Yaquelin Martines, ELMA)0555 (Given - Provider: Yaquelin Martines, ELMA)0855 (Given - Provider: Marcelina Sims, ELMA)1155 (Given - Provider: Marcelina Sims, ELMA)1256 (See Alternative - Provider: Marcelina Sims, ELMA)1633 (See Alternative - Provider: Marcelina Sims, RN) oxyCODONE (ROXICODONE) immediate release tablet 30 [...] Alternative - Provider: Yaquelin Martines, RN) 0253 (Given - Provider: Yaquelin Martines, RN)0555 (See Alternative - Provider: Yaquelin Martines, RN)0855 (See Alternative - Provider: Marcelina Sims, RN)1155 (See Alternative - Provider: Marcelina Sims, RN)1256 (See Alternative - Provider: Marcelina Sims, RN)1633 (Given - Provider: Marcelina Sims, ELMA) Linked [...] Routine documented in this encounter Care Teams Stove Polisher Relationship Specialty Start Date End Date Reece Calixto MD [address] [place] [address] PCP - General 12/21/11 12/10/14 documented as of this encounter
--- OUTSIDE RECORDS SUMMARY | 2024-02-26 21:31 | XMS_ITS | Encounter Summary ---
Author Organization [facility] [place] [address] Care Team Providers Care Patient Educator Name Role Phone Ashley Calixto MD Primary Care Provider [phone] Reason for Visit * Reason Onset Date Comments Pre Procedure Call 10/03/2013 Encounter Details Date Type Department Care Team (Late st Contact Info) Description 10/03/2013 Telephone [place] [address] Mihir Herrera MD [facility] DR [place] [address] Pre Procedure Call Social History Tobacco Use [...] on filedocumented in this encounter Care Teams Patient Educator Relationship Specialty Start Date End Date Ashley Calixto MD [address] [place] [address] PCP - General 12/21/11 12/10/14 documented as of this encounter
--- OUTSIDE RECORDS SUMMARY | 2024-02-26 21:31 | XMS_ITS | Encounter Summary ---
Author Organization [facility] [place] [address] Care Team Providers Care Layer Up Name Role Phone Ashley Calixto MD Primary Care Provider [phone] Reason for Visit * Reason Onset Date Comments Bumped Appointment 08/23/2013 Encounter Details Date Type Department Care Team (Late st Contact Info) Description 08/23/2013 Telephone [place] [address] Lj Braden MD [facility] DR ORTHOPAED[place] [address] Bumped Appointment Social History Tobacco Use Types [...] on filedocumented in this encounter Care Teams Layer Up Relationship Specialty Start Date End Date Ashley Calixto MD [facility] [address] [facility] [address] [place] [address] PCP - General 12/21/11 12/10/14 documented as of this encounter
--- OUTSIDE RECORDS SUMMARY | 2024-02-26 21:31 | XMS_ITS | Encounter Summary ---
Author Organization [facility] [place] [address] Care Team Providers Care Receptionist Clerk Name Role Phone Ashley Calixto MD Primary Care Provider [phone] Encounter Details Date Type Department Care Team (Late st Contact Info) Description 11/21/2013 Orders [place] [address] Mihir Herrera MD [facility] [place] [address] Social History Tobacco Use Types Packs/Day Years [...] BANK LAB ORDER JACKIE Performing Organization Address City/[facility] Co de Phone Number RANDY MORALES documented in this encounter Visit Diagnoses Not on filedocumented in this encounter Care Teams Receptionist Clerk Relationship Specialty Start Date End Date Ashley Calixto MD [facility] [address] [place] [address] PCP - General 12/21/11 12/10/14 documented as of this encounter
--- OUTSIDE RECORDS SUMMARY | 2024-02-26 21:31 | XMS_ITS | Encounter Summary ---
[place] [address] Care Team Providers Care Mind Reader Name Role Phone Ashley Calixto MD Primary Care Provider [phone] Encounter Details Date Type Department Care Team (Latest Contact Info) Description 12/09/2013 Anti-Coag Telephone [place] [phone] Meghana Gleason, RN S/P total knee arthroplasty, [...] Therapeutic Range: 2.0-3.0 INR: 2.1 Drawn by: [facility] Patient presents with no signs of [...] Results * (ABNORMAL) External Lab Results (12/09/2013) INR, POC 2.1(Externa l Lab) 0.9 - 1.1 12/09/2013 Historical Provider CHEMISTRY ORDERAB LES documented in this encounter Visit Diagnoses Diagnosis S/P total knee arthroplasty, left documented in this encounter Care Teams Mind Reader Relationship Specialty Start Date End Date Ashley Calixto MD [address] [place] [address] PCP - General 12/21/11 12/10/14 documented as of this encounter
--- OUTSIDE RECORDS SUMMARY | 2024-02-26 21:31 | XMS_ITS | Encounter Summary ---
Author Organization [facility] [place] [address] Care Team Providers Care Lens Cementer Name Role Phone Ashley Calixto MD Primary Care Provider [phone] Reason for Visit * Reason Onset Date Comments Bumped Appointment 08/27/2013 Encounter Details Date Type Department Care Team (Late st Contact Info) Description 08/27/2013 Telephone [place] [address] Lj Braden MD [facility] [place] [address] Bumped Appointment Social History Tobacco Use Types [...] on filedocumented in this encounter Care Teams Lens Cementer Relationship Specialty Start Date End Date Ashley Calixto MD [facility] [address] [facility] [address] [place] [address] PCP - General 12/21/11 12/10/14 documented as of this encounter
--- OUTSIDE RECORDS SUMMARY | 2024-02-26 21:31 | XMS_ITS | Encounter Summary ---
Author Organization [facility] [place] [address] Care Team Providers Care Aircraft Delivery Checker Name Role Phone Ashley Calixto MD Primary Care Provider [phone] Encounter Details Date Type Department Care Team (Late st Contact Info) Description 12/02/2013 7:31 AM EDT Anesthesia Event [place] [address] Sachi Fontanez MD [facility] [place] [address] Anesthesia Record Procedure Summary Procedure Name Responsible [...] 0850 Break/Relief In FOWLER C GREE NWAY, INSPECTOR OF WEIGHTS AND MEASURES 0908 An Tourn Deflated 0913 Break/Relief Out [...] 0634; metacarpal vein left (top of hand); wgcs-dzo-buqaic catheter system; 18 gauge, 1 in length; [...] chlorhexidine Laterality: left Ultrasound Guidance: live and swp-vs-tpuep Skin Medication lidocaine 1% 5 ml Injection [...] and sober since 03/10. Hx IV drugs [id number]. Hx intranasal drugs [id number]. Allergies Allergen Reactions ??? Isoniazid ? Rash... [...] discussed with patient whom. Plan discussed with INSPECTOR OF WEIGHTS AND MEASURES. [facility]. Assessment: documented in this encounter Plan of [...] chlorhexidine Laterality: left Ultrasound Guidance: live and iwz-js-tbdkk Skin Medication lidocaine 1% 5 ml Injection [...] Events/Notes Events: ??None Additional Notes: ??+Clear CSF Resident/INSPECTOR OF WEIGHTS AND MEASURES: Nataly Rothman Fellow: Attending Physician: ??Juli Fontanez [...] chlorhexidine Laterality: left Ultrasound Guidance: live and hzq-jc-lcpdi Skin Medication lidocaine 1% 5 ml Injection [...] Events/Notes Events: None Additional Notes: +Clear CSF Resident/INSPECTOR OF WEIGHTS AND MEASURES: Nataly Rothman Fellow: Attending Physician: Juli Fontanez ~~~~~~~~~~~~~~~~~~~~~~~~~~~~~~~~~~~~~~~~~~~~~~~~~~~~~~~~~~~~ Marcelina Rothman INSPECTOR OF WEIGHTS AND MEASURES DATA SOFTWARE ENGINEER [facility] * ANE NEURAXIAL UPDATED (12/02/2013 8:30 [...] chlorhexidine Laterality: left Ultrasound Guidance: live and ikt-ih-uuwwa Skin Medication lidocaine 1% 5 ml Injection [...] Events/Notes Events: ??None Additional Notes: ??+Clear CSF Resident/INSPECTOR OF WEIGHTS AND MEASURES: Nataly Rothman Fellow: Attending Physician: ??Juli Fontanez [...] chlorhexidine Laterality: left Ultrasound Guidance: live and xrf-xs-doxaw Skin Medication lidocaine 1% 5 ml Injection [...] Events/Notes Events: None Additional Notes: +Clear CSF Resident/INSPECTOR OF WEIGHTS AND MEASURES: Nataly Rothman Fellow: Attending Physician: Juli Fontanez ~~~~~~~~~~~~~~~~~~~~~~~~~~~~~~~~~~~~~~~~~~~~~~~~~~~~~~~~~~~~ Marcelina Rothman CRNA DATA SOFTWARE ENGINEER [facility] * Anesthesia Block (12/02/2013 8:30 AM [...] chlorhexidine Laterality: left Ultrasound Guidance: live and soz-pl-ivtpg Skin Medication lidocaine 1% 5 ml Injection [...] chlorhexidine Laterality: left Ultrasound Guidance: live and pmh-os-wlepl Skin Medication lidocaine 1% 5 ml Injection [...] Events/Notes Events: None Additional Notes: +Clear CSF Resident/INSPECTOR OF WEIGHTS AND MEASURES: Nataly Rothman Fellow: Attending Physician: Juli Fontanez ~~~~~~~~~~~~~~~~~~~~~~~~~~~~~~~~~~~~~~~~~~~~~~~~~~~~~~~~~~~~ Jose Juan Freeman MD DATA SOFTWARE ENGINEER [facility] documented in this encounter Visit Diagnoses [...] mL/hr documented in this encounter Care Teams Aircraft Delivery Checker Relationship Specialty Start Date End Date Ashley Calixto MD [facility] [address] [place] [address] PCP - General 12/21/11 12/10/14 documented as of this encounter
--- OUTSIDE RECORDS SUMMARY | 2024-02-26 21:32 | XMS_ITS | Encounter Summary ---
Author Organization [facility] [place] [address] Care Team Providers Care Housing Director Name Role Phone Ashley Calixto MD Primary Care Provider [phone] Reason for Visit * Reason Comments Follow-up Encounter Details Date Type Department Care Team (Late st Contact Info) Description 07/27/2012 3:30 PM EDT Follow-Up Dermatology at [facility] [address] [place] [address] Geri Styles MD Rash (Primary Dx) Discharge Disposition: Home Social [...] supervision with direct supervision immediately available. 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 Geri Styles MD Resident in Dermatology [facility] Staff ripening room operator: Gray Brewer MD Section of Dermatology [facility] I performed the above scribed service and agree with the accuracy of the documentation in this encounter. documented in this encounter Plan of Treatment Not on file documented as of this encounter Visit Diagnoses Diagnosis Rash- Primary Rash and other nonspecific skin eruption documented in this encounter Care Teams Housing Director Relationship Specialty Start Date End Date Ashley Calixto MD [facility] [address] [place] [address] PCP - General 12/21/11 12/10/14 documented as of this encounter
--- OUTSIDE RECORDS SUMMARY | 2024-02-26 21:32 | XMS_ITS | Encounter Summary ---
Author Organization [facility] [place] [address] Care Team Providers Care Printed Circuit Board Panels Trimmer Name Role Phone Ashley Calixto MD Primary Care Provider [phone] Reason for Visit * Reason Comments Follow-up Encounter Details Date Type Department Care Team (Late st Contact Info) Description 06/22/2012 3:05 PM EDT Follow-Up Dermatology at 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 Will communicate our impressions to his fish technologist. Follow-up: RTC in 1 month. Will f/u by phone in 1 week and increase to 1 mg BID if tolerated. Instructed to call for questions or concerns. Geri Styles MD Resident in Dermatology [facility] Patient seen and evaluated with staff stripper black and white: Ivon Higuera MD Section of Dermatology [facility] documented in this encounter Plan of Treatment Not on file documented as of this encounter Visit Diagnoses Diagnosis Rash- Primary Rash and other nonspecific skin eruption documented in this encounter Care Teams Printed Circuit Board Panels Trimmer Relationship Specialty Start Date End Date Ashley Calixto MD [address] [place] [address] PCP - General 12/21/11 12/10/14 documented as of this encounter
--- OUTSIDE RECORDS SUMMARY | 2024-02-26 21:32 | XMS_ITS | Encounter Summary ---
[place] [address] Care Team Providers Care Jackhammer Splitter Operator Name Role Phone Awilda Prakash APRN Primary Care Provider [phone] Encounter Details Date Type Department Care Team (Late st Contact Info) Description 11/16/2011 [place] [address] Lu Nicole, RN Social History Tobacco Use [...] on filedocumented in this encounter Care Teams Jackhammer Splitter Operator Relationship Specialty Start Date End Date Awilda Prakash APRN PCP - General 08/25/11 12/20/11 documented as of this encounter
--- OUTSIDE RECORDS SUMMARY | 2024-02-26 21:32 | XMS_ITS | Encounter Summary ---
[facility] [place] [address] Care Team Providers Care Tractor Trailer Moving Van Driver Name Role Phone Ashley Calixto MD Primary Care Provider [phone] Reason for Visit * Reason Comments Follow-up Encounter Details Date Type Department Care Team (Late st Contact Info) Description 06/06/2013 3:00 PM EDT [place] [address] Patience Whitman APRN Chronic hepatitis C; Fatigue Social History Tobacco [...] this encounter Progress Notes * Patience Whitman, [employer]ER - 06/06/2013 3:22 PM EDT Subjective: Patient [...] white male who was seen today at [facility] in follow-up for hepatitis C. [...] ??? Mother 54 cancer ??? Father 56 [place] ??? Sister Alive age 61 ??? Sister [...] 12 weeks. Sideeffects with sofosbuvir include fatigue, SONW, mild nausea, but in general is well-tolerated. [...] Results * TSH (06/06/2013 4:27 PM EDT) Thyroid Stimulating Hormone 2.15 0.27 - 4.20 mcIU/mL RANDY KNAPPCLARICELORENZA Blood specimen (specimen) 06/06/2013 4:27 PM EDT 06/06/2013 4:33 PM EDT Narrative Resulting Agency Comment Spec In Lab Subha Ross MD CHEMISTRY ORDERABLES RANDY MORALES * EKG 12 Lead (06/06/2013 4:01 PM EDT) Ventricular rate 93 BPM MUSE SYSTEM Atrial Rate 93 BPM MUSE SYSTEM P-R Interval 158 ms MUSE SYSTEM QRS Duration 94 ms MUSE SYSTEM Q-T Interval 356 ms MUSE SYSTEM QTC Calculated (Bezet) 442 ms MUSE SYSTEM Calculated P [place] 65 degrees MUSE SYSTEM Calculated R [place] -4 degrees MUSE SYSTEM Calculated T [place] 38 degrees MUSE SYSTEM INTERPRETATION Normal sinus rhythm Normal ECG No previous ECGs available I personally reviewed the tracing and edited the fellows interpretation Confirmed by fellow MD Froilan, Brcok Rasmussen ([id number]) on 06/07/2013 11:44:21 AM Confirmed by MD MASOUD, CHIP ([id number]) on 06/07/2013 2:02:03 PM MUSE SYSTEM 06/06/2013 4:01 PM EDT 06/07/2013 2:02 PM EDT Subha Ross MD ECG ORDERABLES [facility] documented in this encounter Visit Diagnoses Diagnosis Chronic hepatitis C Chronic hepatitis C without mention of hepatic coma Fatigue Other malaise and fatigue documented in this encounter Care Teams Tractor Trailer Moving Van Driver Relationship Specialty Start Date End Date Ashley Calixto MD [address] [place] [address] PCP - General 12/21/11 12/10/14 documented as of this encounter
--- OUTSIDE RECORDS SUMMARY | 2024-02-26 21:32 | XMS_ITS | Encounter Summary ---
[place] [address] Care Team Providers Care Table Setter Name Role Phone Ashley Calixto MD Primary Care Provider [phone] Reason for Visit * Reason Onset Date Comments Prior Authorization 07/09/2013 hep c treatm ent Encounter Details Date Type Department Care Team (Late st Contact Info) Description 07/09/2013 [place] [phone] Haley Mora lead machinist (hep c treatment ) Social History Tobacco [...] & Phone#: [id number] Insurance & Phone #: [place] [phone] ID #: [id number] Notes: waiting on response documented in this encounter Plan of Treatment Not on file documented as of this encounter Visit Diagnoses Not on filedocumented in this encounter Care Teams Table Setter Relationship Specialty Start Date End Date Ashley Calixto MD [address] [place] [address] PCP - General 12/21/11 12/10/14 documented as of this encounter
--- OUTSIDE RECORDS SUMMARY | 2024-02-26 21:32 | XMS_ITS | Encounter Summary ---
Author Organization [facility] Address [facility] [place] [address] Care Team Providers Care Skeins Yarn Examiner Name Role Phone Ashley Calixto MD Primary Care Provider [phone] Encounter Details Date Type Department Care Team (Latest Contact Info) Description 06/06/2013 4:15 PM EDT - 06/06/2013 11:59 PM EDT Hospital [place] [address] Subha Ross MD [facility] [place] [address] Chronic hepatitis C; Fatigue Discharge Disposition: Home [...] Chronic hepatitis C Fatigue COMPREHENSIVE METABOLIC PANEL Routine 06/06/2013 4:27 PM EDT Chronic hepatitis C documented in this encounter Results * Differential, Automated (06/06/2013 4:27 PM EDT) Neutrophil % 52.7 34.0 - 71.0 % CERNER MILLENNIUM Neutrophil Absolute 5.15 1.50 - 6.30 x10(3)/mcL CERNER MILLENNIUM Lymph % 36.8 19.0 - 53.0 % CERNER MILLENNIUM Lymphocytes Abs 3.6 1.0 - 3.6 x10(3)/mcL CERNER MILLENNIUM Monocyte % 6.3 4.0 - 13.0 % CERNER MILLENNIUM Monocyte Abs 0.6 0.2 - 1.0 x10(3)/mcL CERNER MILLENNIUM Eos % 3.7 0.0 - 7.0 % CERNER MILLENNIUM Eosinophils Abs 0.4 0.0 - 0.5 x10(3)/mcL CERNER MILLENNIUM Basophil [...] Immature Gran Absolute 0.01 0.00 - 0.05 x10(3)/mcL [facility] Blood specimen (specimen) 06/06/2013 4:27 PM EDT 06/06/2013 4:33 PM EDT Subha Ross MD HEMATOLOGY ORDERABLE S Performing Organization Address [facility] de Phone Number [facility] * HCV Quant Devonte (06/06/2013 4:27 PM EDT) [facility] HCV Viral Load [id number] IU/mL [facility] HCV Viral Load Result: [id number] Indication for Study: Hepatitis C Infection Analysis: [...] This assay is being performed in the [facility] Molecular Pathology Laboratory. Bertin Beach, Ph.D. Director, Molecular Pathology [facility] Comment: [VERIFIED DATE]06.11.13 Verified By:Michelle Ayala I (Electronic Signature) Blood specimen (specimen) 06/06/2013 4:27 PM EDT 06/10/2013 8:12 AM EDT Narrative Resulting Agency Comment Spec In Lab Subha Ross MD HEMATOLOGY ORDERABLE S Performing Organization Address [facility] de Phone Number [facility] * (ABNORMAL) Comprehensive metabolic panel (non-fasting) (06/06/2013 4:27 PM EDT) [facility] Glucose 244(H) 60 - 199 mg/dL [facility] Comment:Diabetes: >=200 mg/d L plus symptoms Blood Urea Nitrogen 10 10 - 20 mg/dL [facility] Creatinine 0.72(L) 0.80 - 1.50 mg/dL CERNER MILLENNIUM Comment: Please note that the pediatric reference intervals supplied above were not validated at [facility]. Results from pediatric [...] 96(L) 98 - 107 mmol/L CERNER MILLENNIUM Carbon Dioxide 25 22 - 31 mmol/L CERNER MILLENNIUM Anion Gap 12 5 - 15 mmol/L CERNER MILLENNIUM Calcium 9.4 8.5 - 10.5 mg/dL CERNER MILLENNIUM Protein, Total 7.2 6.4 - 8.3 gm/dL CERNER MILLENNIUM Albumin 3.7 3.2 - 5.2 gm/dL CERNER MILLENNIUM Aspartate Aminotransferase 24 0 - 39 unit/L CERNER MILLENNIUM Alanine Aminotransferase 38 0 - 55 unit/L CERNER MILLENNIUM Alkaline Phosphatase 78 40 - 120 unit/L CERNER MILLENNIUM Bilirubin, Total 0.1(L) 0.2 - 1.3 mg/dL CERNER MILLENNIUM Bilirubin, [...] In Lab Subha Ross MD CHEMISTRY ORDERABLES CERJERE KNAPPENNIUM * (ABNORMAL) CBC (with Diff) (06/06/2013 4:27 PM EDT) White Blood Cell 9.8 4.0 - 10.0 x10(3)/mc L CERNER MILLENNIUM Red Blood Cell 4.68 4.63 - 6.08 x10(6)/mc L CERNER MILLENNIUM Hemoglobin 13.7 13.7 - 17.5 gm/dL CERNER MILLENNIUM Hematocrit 39.6(L) 40.0 - 51.0 % CERNER MILLENNIUM Mean Cell Volume 84.6 79.0 - 92.0 fL CERNER MILLENNIUM Mean Cell Hemoglobin 29.3 25.6 - 32.2 pg CERNER MILLENNIUM Mean Cell Hemoglobin Concentration 34.6 32.0 - 36.5 gm/dL CERNER MILLENNIUM Platelet 243 145 - 370 x10(3)/mc L CERNER MILLENNIUM RDW Standard Deviation 38.1 35.0 - 46.0 fL CERNER MILLENNIUM RDW coefficient of variation 12.5 10.9 - 14.4 % CERNER MILLENNIUM Mean Platelet Volume 11.7 9.0 - 12.0 fL CERNER MILLENNIUM Blood specimen (specimen) 06/06/2013 4:27 PM EDT 06/06/2013 4:33 PM EDT Narrative Resulting Agency Comment Spec In Lab Subha Ross MD HEMATOLOGY ORDERABLE S RANDY LOVEIUM * TSH (06/06/2013 4:27 PM EDT) Thyroid Stimulating Hormone 2.15 0.27 - 4.20 mcIU/mL CERNER MILLENNIUM Blood specimen (specimen) 06/06/2013 4:27 PM EDT 06/06/2013 4:33 PM EDT Narrative Resulting Agency Comment Spec In Lab Subha Ross MD CHEMISTRY ORDERABLES [facility] documented in this encounter Visit Diagnoses Diagnosis Chronic hepatitis C Chronic hepatitis C without mention of hepatic coma Fatigue Other malaise and fatigue documented in this encounter Care Teams Skeins Yarn Examiner Relationship Specialty Start Date End Date Ashley Calixto MD [address] [place] [address] PCP - General 12/21/11 12/10/14 documented as of this encounter
--- OUTSIDE RECORDS SUMMARY | 2024-02-26 21:32 | XMS_ITS | Encounter Summary ---
[place] [address] Care Team Providers Care Verify Rep Name Role Phone Ashley Calixto MD Primary Care Provider [phone] Encounter Details Date Type Department Care Team (Late st Contact Info) Description 06/25/2012 Telephone Dermatology at [facility] [address] [place] [address] Geri Styles MD Social History Tobacco Use Types Packs/Day Years [...] on filedocumented in this encounter Care Teams Verify Rep Relationship Specialty Start Date End Date Ashley Calixto MD [address] [place] [address] PCP - General 12/21/11 12/10/14 documented as of this encounter
--- OUTSIDE RECORDS SUMMARY | 2024-02-26 21:32 | XMS_ITS | Encounter Summary ---
Author Organization [facility] [place] [address] Care Team Providers Care Lean Manufacturing Coordinator Name Role Phone Ashley Calixto MD Primary Care Provider [phone] Reason for Visit * Reason Comments Follow-up Encounter Details Date Type Department Care Team (Late st Contact Info) Description 07/27/2012 10:00 AM EDT Follow-[place] [address] Patience Whitman APRN Chronic hepatitis C (Primary Dx) Discharge Disposition: [...] this encounter Progress Notes * Patience Whitman, POWER PLANT ENGINEER - 07/27/2012 10:16 AM EDT Subjective: Patient ID: Zack Langley is a 42 y.o. male. HPI Mr. Langley is a pleasant 41 year old white male who was seen today at [facility] in follow-up for hepatitis C. He was only recently told that he had hepatitis C, but he tells me today that apparently he tested positive in 2007. He has risk factors for HCV dating back to to 1986 when hestarted using intranasal drugs. 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 He had 2 tattoos placed in longterm in 1989 then in 1999. 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 2. Hepatitis C, genotype 2, stage 0-1. [...] EDT Chronic hepatitis C COMPREHENSIVE METABOLIC PANEL Routine 07/27/2012 2:09 PM EDT Chronic hepatitis C documented in this encounter Results * Differential, Automated (07/27/2012 2:09 PM EDT) Neutrophil % 56.3 34.0 - 71.0 % CERNER MILLENNIUM Neutrophil Absolute 4.85 1.50 - 6.30 x10(3)/mcL CERNER MILLENNIUM Lymph % 33.4 19.0 - 53.0 % CERNER MILLENNIUM Lymphocytes Abs 2.9 1.0 - 3.6 x10(3)/mcL CERNER MILLENNIUM Monocyte % 6.2 4.0 - 13.0 % CERNER MILLENNIUM Monocyte Abs 0.5 0.2 - 1.0 x10(3)/mcL CERNER MILLENNIUM Eos % 3.5 0.0 - 7.0 % CERNER MILLENNIUM Eosinophils Abs 0.3 0.0 - 0.5 x10(3)/mcL CERNER MILLENNIUM Basophil % 0.5 0.0 - 2.0 % CERNER MILLENNIUM Baso [...] Gran Absolute 0.01 0.00 - 0.05 x10(3)/mcL CERNER MILLENNIUM Blood specimen (specimen) 07/27/2012 2:09 PM EDT 07/27/2012 2:13 PM EDT Mendez Peralta MD HEMATOLOGY ORDERABL ES Performing Organization Address [facility] de Phone Number CERJERE KNAPPENNIUM * Prothrombin Time (07/27/2012 2:09 PM EDT) Prothrombin Time 12.0 12.0 - 15.0 sec CERNER MILLENNIUM Comment: [facility] Transfusion Committee Guidelines: INR less [...] MD HEMATOLOGY ORDERABL ES Performing Organization Address [facility] de Phone Number CERJERE KNAPPENNIUM * (ABNORMAL) Comprehensive metabolic panel (non-fasting) (07/27/2012 2:09 PM EDT) Glucose 218(H) 60 - 199 mg/dL CERNER MILLENNIUM Comment:Diabetes: >=200 mg/d L plus symptoms Blood Urea Nitrogen 9(L) 10 - 20 mg/dL CERNER MILLENNIUM Creatinine 0.63(L) 0.80 - 1.50 mg/dL CERNER MILLENNIUM Comment: Please note that the pediatric reference intervals supplied above were not validated at [facility]. Results from pediatric patients should be interpreted [...] 99 98 - 107 mmol/L CERNER MILLENNIUM Carbon Dioxide 28 22 - 31 mmol/L CERNER MILLENNIUM Anion Gap 11 5 - 15 mmol/L CERNER MILLENNIUM Calcium 9.0 8.5 - 10.5 mg/dL CERNER MILLENNIUM Protein, Total 7.2 6.4 - 8.3 gm/dL CERNER MILLENNIUM Albumin 3.9 3.2 - 5.2 gm/dL CERNER MILLENNIUM Aspartate Aminotransferase 31 0 - 39 unit/L CERNER MILLENNIUM Alanine Aminotransferase 47 0 - 55 unit/L CERNER MILLENNIUM Alkaline Phosphatase 82 40 - 120 unit/L CERNER MILLENNIUM Bilirubin, [...] Mendez Peralta MD CHEMISTRY ORDERABLE S CERJERE KNAPPENNIUM * (ABNORMAL) CBC (with Diff) (07/27/2012 2:09 PM EDT) White Blood Cell 8.6 4.0 - 10.0 x10(3)/mc L CERNER MILLENNIUM Red Blood Cell 4.61(L) 4.63 - 6.08 x10(6)/mc L CERNER MILLENNIUM Hemoglobin 14.1 13.7 - 17.5 gm/dL CERNER MILLENNIUM Hematocrit 40.1 40.0 - 51.0 % CERNER MILLENNIUM Mean Cell Volume 87.0 79.0 - 92.0 fL CERNER MILLENNIUM Mean Cell Hemoglobin 30.6 25.6 - 32.2 pg CERNER MILLENNIUM Mean Cell Hemoglobin Concentration 35.2 32.0 - 36.5 gm/dL CERNER MILLENNIUM Platelet 238 145 - 370 x10(3)/mc L CERNER MILLENNIUM RDW Standard Deviation 40.7 35.0 - 46.0 fL CERNER MILLENNIUM RDW coefficient of variation 12.7 10.9 - 14.4 % CERNER MILLENNIUM Mean Platelet Volume 11.6 9.0 - 12.0 fL CERNER MILLENNIUM Blood specimen (specimen) 07/27/2012 2:09 PM EDT 07/27/2012 2:13 PM EDT Narrative Resulting Agency Comment Spec In Lab Mendez Peralta MD HEMATOLOGY ORDERABL ES [facility] documented in this encounter Visit Diagnoses Diagnosis Chronic hepatitis C- Primary Chronic hepatitis C without mention of hepatic coma documented in this encounter Care Teams Lean Manufacturing Coordinator Relationship Specialty Start Date End Date Ashley Calixto MD [address] [place] [address] PCP - General 12/21/11 12/10/14 documented as of this encounter
--- OUTSIDE RECORDS SUMMARY | 2024-02-26 21:32 | XMS_ITS | Encounter Summary ---
Author Organization [facility] Address [facility] [place] [address] Care Team Providers Care Optical Element Coater Name Role Phone Awilda Pelayo ROSAURA Primary Care Provider [phone] Encounter Details Date Type Department Care Team (Latest Contact Info) Description 11/22/2011 9:52 AM EDT - 11/22/2011 11:59 PM EDT Hospital [place] [id number] CLIN[address], DR PAMELA Peralta, Mendez Duggan MD [facility] [place] [address] Hepatitis C; Hep C w/o coma, chronic [...] Carcamo RN - 11/22/2011 1:27 PM EDT [facility] Vascular and Interventional Radiology Biopsy Discharge [...] be reported to you by your primary post acute care nurse or the clinician who ordered [...] is during regular office hours, please call [phone]. If it is after regular office hours, or on weekends or holidays, please call [phone] and ask to speak to the Circulation Director cardiovascular surgeon for Interventional Radiology. x You have received [...] : 1970 (home) PCP AWILDA PELAYO APRN [phone] Date/Time of call: November 23, 2011/11:26 AM/ [...] Araujo RN - 11/17/2011 4:51 PM EDT [facility] NURSING DATABASE Name: KALEY SOUSA Date of : 1970 AGE 41 y.o. Address: [address] [address] (home) Mobile: No relevant phone numbers on [...] Date/Procedure Comments: 11/22/11 U/s-guided liver bx OPD [id number] vanessa well Laboratory Results: No results found [...] NOTE Procedure: Ultrasound guided liver biopsy. ACC#: [id number] Indication for Procedure: Hepatitis C, tissue sample [...] 11:30 AM EDT) Surgical Pathology Report ? [facility] ? Provider: ?? SABAS TEAGUE ?? Pt. Name: ?? KALEY SOUSA ? Acc #: ?[id number] ?Pt. ? Col Date: ?? 11/22/2011 ? [...] ? A - Percutaneous liver biopsy ? [facility] ? Provider: ?? SABAS TEAGUE ?? Pt. Name: ?? KALEY SOUSA ? Acc #: ?[id number] ?Pt. ? Col Date: ?? 11/22/2011 ? [...] Ultrasound guided liver biopsy. ? ACC#: ?? [id number] ?Indication ?? for Procedure: Hepatitis C, tissue [...] or (with color Doppler) active ?? hemorrhage. ?Fellow:Liil, ?? Ashok WEBSTER ?Attending: ?? Dr. César Yancey, I was present throughout this procedure. ? ; ?? {CR} ? ; ?? {CR} ? ; ?? {CR} ? ; ?? {CR} ? ; ?? {CR} ? Film and interpretation reviewed by the attending Procedure Note César Yancey MD - 11/23/2011 VIR PROCEDURE NOTE Procedure: Ultrasound guided liverbiopsy. ACC#: [id number] Indication for Procedure: Hepatitis C, tissue sample [...] attending Bridgett Gar MD IMG IR ORDERABLES * POCT GLUCOSE (11/22/2011 10:25 AM EDT) Glucose, POC 103 60 - 199 mg/dL [facility] Comment: Supplemental ranges: <110 mg/dL before meals <200 mg/dL all other times of the day Blood specimen (specimen) 11/22/2011 10:25 AM EDT 11/22/2011 10:25 AM EDT Mendez Peralta MD POINT OF CARE TEST ORDERABLES Performing Organization Address [facility] Co de Phone Number RANDY MORALES * Platelet count (11/22/2011 10:15 AM EDT) Platelet 202 145 - 370 x10(3)/mcL TOROJERE KNAPPCLARICELORENZA Blood specimen (specimen) 11/22/2011 10:15 AM EDT 11/22/2011 10:41 AM EDT Narrative Resulting Agency Comment Spec In Lab Roman Alejandra MD HEMATOLOGY ORDERABLE S Performing Organization Address [facility] Co de Phone Number RANDY MORALES * Specimen to Pathology (NON-OR) (11/22/2011 10:00 AM EDT) AP Specimen 11/22/2011 10:0 0 AM EDT 11/22/2011 10:00 AM EDT Narrative TOROJERE MORALES - 11/22/2011 10:00 AM EDT Specimen requisition ordered. ??Separate Pathology report to follow Sabas Teague MD PATHOLOGY/CYTOLOGY O RDERABLES Performing Organization Address [facility] Co de Phone Number RANDY [...] 1-2 tablet, Oral, EVERY 4 HOURS PRN, Pain, Starting on Mon11/22/11 at 1127, Until Mon11/23/11 at 0230, Maximum dose of acetaminophen is 4000 mg from all sources in 24 hours. Given 11/22/2011 11:53 AM EDT 1 tablet sodium chloride 0.9% infusion 75 mL/hr, Intravenous, CONTINUOUS, Starting on Mon11/22/11 at 1015, Until Mon11/22/11 at 1121, Angio/IR (Intra-Procedure) New Bag 11/22/2011 10:15 AM EDT 75 mL/hr 75 mL/hr documented in this encounter Care Teams Optical Element Coater Relationship Specialty Start Date End Date Awilda Pelayo, ROSAURA PCP - General 08/25/11 12/20/11 documented as of this encounter
--- OUTSIDE RECORDS SUMMARY | 2024-02-26 21:32 | XMS_ITS | Encounter Summary ---
Author Organization [facility] Address [facility] [place] [address] Care Team Providers Care Yard Operator Name Role Phone DwainAwilda pina Mo KAPLAN Primary Care Provider [phone] Encounter Details Date Type Department Care Team (Late st Contact Info) Description 11/15/2011 [place] [address] Bridgett Gar MD [facility] [place] [address] Hep C w/o coma, chronic (Primary Dx) [...] Ultrasound guided liver biopsy. ? ACC#: ?? [id number] ?Indication ?? for Procedure: Hepatitis C, tissue [...] PROCEDURE NOTE Procedure: Ultrasound guided liverbiopsy. ACC#: [id number] Indication for Procedure: Hepatitis C, tissue sample [...] coma documented in this encounter Care Teams Yard Operator Relationship Specialty Start Date End Date Awilda Prakash APRN PCP - General 08/25/11 12/20/11 documented as of this encounter
--- OUTSIDE RECORDS SUMMARY | 2024-02-26 21:32 | XMS_ITS | Encounter Summary ---
Author Organization [facility] [place] [address] Care Team Providers Care Dairy Helper Name Role Phone Ashley Calixto MD Primary Care Provider [phone] Reason for Visit * Reason Comments Left Knee Pain Encounter Details Date Type Department Care Team (Late st Contact Info) Description 01/31/2012 8:40 AM EST [place] [address] Lj Braden MD [facility] [place] [address] Knee pain; Degenerative arthritis of knee Discharge [...] NAME: Zack Langley AGE: 41 y.o. 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 He had persistent pain and swelling for months and then had an MRI of the knee showing a meniscal tear and underwent Menisectomy and MFC chondroplasty on 04/27/2011, by Dr. Fagan at [place]. He reports that the surgery helped a [...] which included, Standing alignment, AP, Lateral, Schuss, Bovey images, which showed Impression 1. Medial deviation [...] mg documented in this encounter Care Teams Dairy Helper Relationship Specialty Start Date End Date Ashley Calixto MD [facility] [address] [place] [address] PCP - General 12/21/11 12/10/14 documented as of this encounter
--- OUTSIDE RECORDS SUMMARY | 2024-02-26 21:32 | XMS_ITS | Encounter Summary ---
[place] [address] Care Team Providers Care Manager Wastewater Name Role Phone Awilda Prakash APRN Primary Care Provider [phone] Encounter Details Date Type Department Care Team (Latest Contact Info) Description 11/11/2011 10:39 AM EDT - 11/11/2011 11:59 PM EDT Hospital [place] [address] Chronic hepatitis C without mention of hepatic [...] Final 11/11/2011 11:12 am) Patient Info ID: ?[id number] ?: ??[birth year] (41 yrs) Name: ?ZACK LANGLEY ?Visit Date: 11/11/2011 10:40 am Performed By Performed By: ?Yanira Everett RDMS Attending: ? Fermin WEBSTER, Arnulfo Sosa Referred By: ? MENDEZ CUENCA MD Service(s) Provided [facility] - Abdominal Complete Survey - [id number] ? [id number] Indications HCV Comparison None ----- Liver ----- [...] Final 11/11/2011 11:12 am) Patient Info ID: [id number] : [birth year] (41 yrs) Name: ZACK LANGLEY Visit Date: 11/11/2011 10:40 am Performed By Performed By: Yanira Everett [facility] Attending: Arnulfo Christensen MD Referred By: MENDEZ CUENCA MD Service(s) Provided [facility] - Abdominal Complete Survey - [id number] [id number] Indications HCV Comparison None ----- Liver ----- [...] coma documented in this encounter Care Teams Manager Wastewater Relationship Specialty Start Date End Date Awilda Prakash, ROSAURA PCP - General 08/25/11 12/20/11 documented as of this encounter
--- OUTSIDE RECORDS SUMMARY | 2024-02-26 21:32 | XMS_ITS | Encounter Summary ---
[place] [address] Care Team Providers Care Art Gallery Internship Name Role Phone Ashley Calixto MD Primary Care Provider [phone] Encounter Details Date Type Department Care Team (Late st Contact Info) Description 08/14/2013 Telephone [place] [address] Lu Nicole RN Social History Tobacco Use [...] Nicole RN - 08/14/2013 11:22 AM EDT [place] sovaldi and ribavirin per phone call from Michael Wilde [phone] [place] [facility], who stated that patient had minimal liver involvement and that it was reasonable to wait for treatment. Will forward to Hayley Whitman NP. documented in this encounter Plan of Treatment Not on file documented as of this encounter Visit Diagnoses Not on filedocumented in this encounter Care Teams Art Gallery Internship Relationship Specialty Start Date End Date Ashley Calixto MD [facility] [address] [facility] [address] [place] [address] PCP - General 12/21/11 12/10/14 documented as of this encounter
--- OUTSIDE RECORDS SUMMARY | 2024-02-26 21:32 | XMS_ITS | Encounter Summary ---
Author Organization [facility] [place] [address] Care Team Providers Care Auto Air Conditioning Installer Name Role Phone Ashley Calixto MD Primary Care Provider [phone] Reason for Visit * Reason Comments Left Knee Pain knee pain Encounter Details Date Type Department Care Team (Late st Contact Info) Description 04/02/2013 4:15 PM EST Office [place] [address] Lj Braden MD [facility] [place] [address] Knee pain, left (Primary Dx) Discharge Disposition: [...] mg documented in this encounter Care Teams Auto Air Conditioning Installer Relationship Specialty Start Date End Date Ashley Calixto MD [address] [place] [address] PCP - General 12/21/11 12/10/14 documented as of this encounter
--- OUTSIDE RECORDS SUMMARY | 2024-02-26 21:32 | XMS_ITS | Encounter Summary ---
[place] [address] Care Team Providers Care Woods Overseer Name Role Phone Ashley Calixto MD Primary Care Provider [phone] Reason for Visit * Reason Comments Advice Only new pt work up Encounter Details Date Type Department Care Team (Late st Contact Info) Description 07/27/2012 12:45 PM EDT Office [place] [address] Danica Lopez MD [address] [place] [address] [place] [address] Hepatitis C (Primary Dx); Neurodermatitis; Abnormal laboratory [...] a 42-year-old who reports that while in penitent[place] last year, during the summer, he developed [...] chronicus and the second biopsy, done at [facility], showed only excoriation. Note is made [...] * QuantiFERON-TB Gold (07/27/2012 2:09 PM EDT) Pathologist [facility] Quantiferon-TB Gold Positive Negative [facility] Comment: Nil (IU/mL)= 0.02 TB Ag [...] Lopez MD CHEMISTRY ORDERABLES Performing Organization Address [facility] Co de Phone Number RANDY MORALES * MONTY (07/27/2012 2:09 PM EDT) MONTY Neg Neg CERJERE KNAPPENNIUM Blood specimen (specimen) 07/27/2012 2:09 PM EDT 07/30/2012 8:26 AM EDT Narrative Resulting Agency Comment Spec In Lab Danica Lopez MD LAB SEND OUT ORDERAB LES Performing Organization Address [facility] Co de Phone Number RANDY MORALES documented in this encounter Visit Diagnoses Diagnosis Hepatitis C- Primary Unspecified viral hepatitis C without hepatic coma Neurodermatitis Lichenification and lichen simplex chronicus Abnormal laboratory test Other abnormal clinical finding Joint pain Pain in joint, site unspecified documented in this encounter Care Teams Woods Overseer Relationship Specialty Start Date End Date Ashley Calixto MD [address] [place] [address] PCP - General 12/21/11 12/10/14 documented as of this encounter
--- OUTSIDE RECORDS SUMMARY | 2024-02-26 21:32 | XMS_ITS | Encounter Summary ---
Author Organization [facility] [place] [address] Care Team Providers Care Bun Icer Name Role Phone Awilda Pelayo ROSAURA Primary Care Provider [phone] Reason for Visit * Reason Comments Rash Encounter Details Date Type Department Care Team (Late st Contact Info) Description 11/18/2011 1:00 PM EDT Office Visit Hematology [place] [address] Saurabh Malhotra MD [facility] [place] [address] Toxin exposure (Primary Dx) Discharge Disposition: Home [...] primary care provider's office and also hereat [facility] Dermatology clinic. The pathology report here states [...] with respiration. No tenderness. Normal bowel sounds TRACER BULLET SECTION SUPERVISOR: Awake and alert. Moves all extremities. Gait [...] us by the patient himself and the rattle leak and squeak repairer of the chemicals. The main constituents of [...] referral to Dr Iraida Olivo in Dermatology, [facility] where skin/ patch testing could be done [...] 2:40 PM EDT Toxin exposure LEAD, VENOUS (HUGO) Routine 11/18/2011 2 :40 PM EDT COMPREHENSIVE METABOLIC PANEL Routine 11/18/2011 2:40 PM EDT Toxin exposure documented in this encounter Results * DIFFERENTIAL, AUTOMATED (11/18/2011 2:40 PM EDT) Neutrophil % 44.0 34.0 - 71.0 % CERNER MILLENNIUM Neutrophil Absolute 3.20 1.50 - 6.30 x10(3)/mcL CERNER MILLENNIUM Lymph % 44.6 19.0 - 53.0 % CERNER MILLENNIUM Lymphocytes Abs 3.2 1.0 - 3.6 x10(3)/mcL CERNER MILLENNIUM Monocyte % 6.9 4.0 - 13.0 % CERNER MILLENNIUM Monocyte Abs 0.5 0.2 - 1.0 x10(3)/mcL CERNER MILLENNIUM Eos % 4.0 0.0 - 7.0 % CERNER [...] EDT Saurabh Malhotra MD HEMATOLOGY ORDERAB LES CERJERE LOVEIUM * LEAD (ADULT) (11/18/2011 2:40 PM EDT) Lead (JUNE) 3 0 - 9 mcg/dL CERNER MILLENNIUM Comment: Test Performed by: [facility] [address], [place], [place] [address] Special Tester: Shari Willson, Ph.D. Blood specimen (specimen) 11/18/2011 2:40 PM EDT 11/18/2011 2:53 PM EDT Narrative Resulting Agency Comment Spec In Lab Saurabh Malhotra MD LAB SEND OUT ORDER JACKIE CERNER MILLENNIUM * (ABNORMAL) Comprehensive metabolic panel (non-fasting) (11/18/2011 2:40 PM EDT) [facility] Glucose 76 60 - 199 mg/dL CERNER MILLENNIUM Comment:Diabetes: >=200 mg/d L plus symptoms Blood Urea Nitrogen 9(L) 10 - 20 mg/dL CERNER MILLENNIUM Creatinine 0.61(L) 0.80 - 1.50 mg/dL CERNER MILLENNIUM Comment: Please note that the pediatric reference intervals supplied above were not validated at [facility]. Results from pediatric [...] 102 98 - 107 mmol/L CERNER MILLENNIUM Carbon Dioxide 27 22 - 31 mmol/L CERNER MILLENNIUM Anion Gap 11 5 - 15 mmol/L CERNER MILLENNIUM Calcium 9.0 8.5 - 10.5 mg/dL CERNER MILLENNIUM Protein, Total 7.2 6.4 - 8.3 gm/dL CERNER MILLENNIUM Albumin 3.9 3.2 - 5.2 gm/dL CERNER MILLENNIUM Aspartate Aminotransferase 32 0 - 39 unit/L CERNER MILLENNIUM Alanine Aminotransferase 36 0 - 55 unit/L CERNER MILLENNIUM Alkaline Phosphatase 83 40 - 120 unit/L CERNER MILLENNIUM Bilirubin, Total 0.2 0.2 - 1.3 mg/dL CERNER MILLENNIUM Bilirubin, Direct 0.1 0.0 - 0.3 mg/dL CERNER MILLENNIUM Est Glomerular Filtration Rate >60 >=60 CERNER MILLENNIUM Comment: The National [...] Lab Saurabh Malhotra MD CHEMISTRY ORDERABL ES TOROJERE KNAPPCLARICELORENZA * (ABNORMAL) CBC (with Diff) (11/18/2011 2:40 PM EDT) White Blood Cell 7.3 4.0 - 10.0 x10(3)/mc L RANDY MORALES Red Blood Cell 4.55(L) 4.63 - 6.08 x10(6)/mc L CERNER MILLENNIUM Hemoglobin 13.5(L) 13.7 - 17.5 gm/dL CERNER MILLENNIUM Hematocrit 39.7(L) 40.0 - 51.0 % CERNER MILLENNIUM Mean Cell Volume 87.3 79.0 - 92.0 fL CERNER MILLENNIUM Mean Cell Hemoglobin 29.7 25.6 - 32.2 pg CERNER MILLENNIUM Mean Cell Hemoglobin Concentration 34.0 32.0 - 36.5 gm/dL CERNER MILLENNIUM Platelet 188 145 - 370 x10(3)/mc L CERNER MILLENNIUM RDW Standard Deviation 40.0 35.0 - 46.0 fL CERNER MILLENNIUM RDW coefficient of variation 12.5 10.9 - 14.4 % CERNER MILLENNIUM Mean Platelet Volume 11.0 9.0 - 12.0 fL CERNER MILLENNIUM Blood specimen (specimen) 11/18/2011 2:40 PM EDT 11/18/2011 2:51 PM EDT Narrative Resulting Agency Comment Spec In Lab Saurabh Malhotra MD HEMATOLOGY ORDERAB LES [facility] documented in this encounter Visit Diagnoses Diagnosis Toxin exposure- Primary Contact with and (suspected) exposure to other potentially hazardous substances documented in this encounter Care Teams Bun Icer Relationship Specialty Start Date End Date Awilda Pelayo APRN PCP - General 08/25/11 12/20/11 documented as of this encounter
--- OUTSIDE RECORDS SUMMARY | 2024-02-26 21:32 | XMS_ITS | Encounter Summary ---
Author Organization [facility] [place] [address] Care Team Providers Care Director Of Business Applications Name Role Phone Ashley Calixto MD Primary Care Provider [phone] Reason for Visit * Reason Comments Follow-up Encounter Details Date Type Department Care Team (Late st Contact Info) Description 11/12/2012 3:30 PM EDT [place] [address] Judy Whitman APRN Chronic hepatitis C (Primary Dx) [...] white male who was seen today at [facility] Hepatology Clinic in follow-up for hepatitis C. [...] ??? Mother 54 cancer ??? Father 56 SC ??? Sister Alive age 61 ??? Sister [...] Results * HIV (03/18/2013 9:31 AM EST) HIV 1/2 Ab Negative Negative RANDY MORALES Blood specimen (specimen) 03/18/2013 9:31 AM EST 03/18/2013 9:38 AM EST Narrative Resulting Agency Comment Spec In Lab Taran Peralta MD CHEMISTRY ORDERABLE S RANDY RARIP * (ABNORMAL) TSH (03/18/2013 9:31 AM EST) Thyroid Stimulating Hormone 6.06(H) 0.27 - 4.20 mcIU/mL RANDY MORALES Blood specimen (specimen) 03/18/2013 9:31 AM EST 03/18/2013 9:38 AM EST Narrative Resulting Agency Comment Spec In Lab Taran Peralta MD CHEMISTRY ORDERABLE S CERNER RAENNIUM * (ABNORMAL) Comprehensive metabolic panel (non-fasting) (03/18/2013 9:31 AM EST) Glucose 210(H) 60 - 199 mg/dL CERNER MILLENNIUM Comment:Diabetes: >=200 mg/d L plus symptoms Blood Urea Nitrogen 9(L) 10 - 20 mg/dL CERNER MILLENNIUM Creatinine 0.65(L) 0.80 - 1.50 mg/dL CERNER MILLENNIUM Comment: Please note that the pediatric reference intervals supplied above were not validated at [facility]. Results from pediatric patients should be interpreted [...] 8.9 8.5 - 10.5 mg/dL CERNER MILLENNIUM Protein, Total 7.5 6.4 - 8.3 gm/dL CERNER MILLENNIUM Albumin 3.8 3.2 - 5.2 gm/dL CERNER MILLENNIUM Aspartate Aminotransferase 23 0 - 39 unit/L CERNER MILLENNIUM Alanine Aminotransferase 40 0 - 55 unit/L CERNER MILLENNIUM Alkaline [...] Lab Taran Peralta MD CHEMISTRY ORDERABLE S [facility] * (ABNORMAL) CBC (with Diff) (03/18/2013 9:31 AM EST) White Blood Cell 10.7(H) 4.0 - 10.0 x10(3)/mc L CERNER MILLENNIUM Red Blood Cell 4.79 4.63 - 6.08 x10(6)/mc L CERNER MILLENNIUM Hemoglobin 14.2 13.7 - 17.5 gm/dL CERNER MILLENNIUM Hematocrit 41.0 40.0 - 51.0 % CERNER MILLENNIUM Mean Cell Volume 85.6 79.0 - 92.0 fL CERNER MILLENNIUM Mean Cell Hemoglobin 29.6 25.6 - 32.2 pg CERNER MILLENNIUM Mean Cell Hemoglobin Concentration 34.6 32.0 - 36.5 gm/dL CERNER MILLENNIUM Platelet 225 145 - 370 x10(3)/mc L CERNER MILLENNIUM RDW Standard Deviation 38.7 35.0 - 46.0 fL CERNER MILLENNIUM RDW coefficient of variation 12.5 10.9 - 14.4 % CERNER MILLENNIUM Mean Platelet Volume 11.6 9.0 - 12.0 fL CERNER MILLENNIUM Blood specimen (specimen) 03/18/2013 9:31 AM EST 03/18/2013 9:38 AM EST Narrative Resulting Agency Comment Spec In Lab Taran Peralta MD [facility] RANDY MORALES * abdomen complete (03/18/2013 8:49 AM EST) Anatomical Region Laterality Modality Abdomen, Vascular Ultrasound 03/18/2013 8:49 AM EST Narrative 03/18/2013 9:16 AM EST ?Abdominal ? (Signed Final 03/18/2013 09:13 am) Patient Info ID: ? [id number] ? : [birth year] (42 yrs) Name: ? KALEY Mathis MERRY ? Visit Date: 03/18/2013 08:43 am Performed By Performed By: ?Malika Calderón RDMS Associate: ? Yaritza Bahena MD Attending: ? Pablo Larsen MD Referred By: ? TARAN PERALTA MD Service(s) Provided [facility] - Abdominal Complete Survey - [id number] ? [id number] Indications Hepatitis C Comparison CT abd and [...] Final 03/18/2013 09:13 am) Patient Info ID: [id number] : [birth year] (42 yrs) Name: KALEY SOUSA Visit Date: 03/18/2013 08:43 am Performed By Performed By: Malika Calderón RDMS Associate: Yaritza Bahena MD Attending: Pablo Larsen MD Referred By: TARAN PERALTA MD Service(s) Provided [facility] - Abdominal Complete Survey - [phone] [id number] Indications Hepatitis C Comparison CT abd and [...] by the attending Taran Peralta MD IMG US GEN ORDERABL ES documented in this encounter Visit Diagnoses Diagnosis Chronic hepatitis C- Primary Chronic hepatitis C without mention of hepatic coma Chronic hepatitis C Chronic hepatitis C without mention of hepatic coma documented in this encounter Care Teams Director Of Business Applications Relationship Specialty Start Date End Date Ashley Calixto MD [address] [place] [address] PCP - General 12/21/11 12/10/14 documented as of this encounter
--- OUTSIDE RECORDS SUMMARY | 2024-02-26 21:32 | XMS_ITS | Encounter Summary ---
[place] [address] Care Team Providers Care Teaching Specialists Name Role Phone Awilda Prakash APRN Primary Care Provider [phone] Reason for Visit * Reason Comments GI Problem Encounter Details Date Type Department Care Team (Late st Contact Info) Description 11/11/2011 1:00 PM EDT Follow-[place] [address] CLINIC, Patience Garzon APRN Chronic hepatitis C without mention of hepatic [...] this encounter Progress Notes * Patience Whitman, LOSS PREVENTION OPERATIONS MANAGER - 11/11/2011 4:22 PM EDT Subjective: Patient [...] white male who was seen today at [facility] Hepatology [facility] in follow-up for hepatitis C. He was only recently told that he had hepatitis C, but he tells me today that apparently he tested positive in 2007. He has risk factors for HCV dating back to to 1986 when hestarted using intranasal drugs. 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 He had 2 tattoos placed in half-way in 1989 then in 1999. He has [...] Primary documented in this encounter Care Teams Teaching Specialists Relationship Specialty Start Date End Date Awilda Prakash APRN PCP - General 08/25/11 12/20/11 documented as of this encounter
--- OUTSIDE RECORDS SUMMARY | 2024-02-26 21:32 | XMS_ITS | Encounter Summary ---
Author Organization [facility] Address [facility] [place] [address] Care Team Providers Care House Coordinator Name Role Phone Ashley Calixto MD Primary Care Provider [phone] Encounter Details Date Type Department Care Team (Late st Contact Info) Description 10/11/2012 Orders [place] [address] Michelle Cobian MD [facility] [place] [address] LTBI (latent tuberculosis infection) (Primary Dx) Social [...] tuberculosis documented in this encounter Care Teams House Coordinator Relationship Specialty Start Date End Date Ashley Calixto MD [facility] [address] [place] [address] PCP - General 12/21/11 12/10/14 documented as of this encounter
--- OUTSIDE RECORDS SUMMARY | 2024-02-26 21:32 | XMS_ITS | Encounter Summary ---
Author Organization [facility] [place] [address] Care Team Providers Care Financial Investigator Name Role Phone Ashley Calixto MD Primary Care Provider [phone] Reason for Visit * Reason Comments Left Knee Pain Encounter Details Date Type Department Care Team (Late st Contact Info) Description 10/15/2012 4:15 PM EDT Office [place] [address] Lj Braden MD [facility] [place] [address] Knee pain (Primary Dx) Discharge Disposition: Home [...] on following up with Dr. 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
--- OUTSIDE RECORDS SUMMARY | 2024-02-26 21:32 | XMS_ITS | Encounter Summary ---
Author Organization [place] [address] Care Team Providers Care Information Technology Project Manager Name Role Phone Ashley Calixto MD Primary Care Provider [phone] Encounter Details Date Type Department Care Team (Latest Contact Info) Description 03/18/2013 8:00 AM EST - 03/18/2013 11:59 PM [facility] Hospital En[place] [address] Patience Whitman APRN Chronic hepatitis C Discharge Disposition: Home Social [...] 03/18/2013 09:13 am) Patient Info ID: ? [id number] ? : ??[birth year] (42 yrs) Name: ? ZACK Mathis MERRY ? Visit Date: 03/18/2013 08:43 am Performed By Performed By: ?Malika Calderón RDMS Associate: ? Yaritza Bahena MD Attending: ? Chava WE[place]STER, Pablo Angel Referred By: ? MENDEZ CUENCA MD Service(s) Provided [facility] - Abdominal Complete Survey - [id number] ? [id number] Indications Hepatitis C Comparison CT abd and [...] Final 03/18/2013 09:13 am) Patient Info ID: [id number] : [birth year] (42 yrs) Name: ZACK LANGLEY Visit Date: 03/18/2013 08:43 am Performed By Performed By: Malika Calderón RDMS Associate: Yaritza Bahena MD Attending: Pablo Larsen MD Referred By: MENDEZ CUENCA MD Service(s) Provided [facility] - Abdominal Complete Survey - [phone] Indications Hepatitis C Comparison CT abd and [...] documented in this encounter Care Teams Information Technology Project Manager Relationship Specialty Start Date End Date Ashley Calixto MD [address] [place] [address] PCP - General 12/21/11 12/10/14 documented as of this encounter
--- OUTSIDE RECORDS SUMMARY | 2024-02-26 21:32 | XMS_ITS | Encounter Summary ---
Author Organization [facility] [place] [address] Care Team Providers Care Appraisal Specialist Name Role Phone Ashley Calixto MD Primary Care Provider [phone] Encounter Details Date Type Department Care Team (Late st Contact Info) Description 07/02/2012 1:15 PM EDT Office [place] [address] Lj Braden MD [facility] [place] [address] Knee pain (Primary Dx) Discharge Disposition: Home [...] knee. He has previously been arthroscoped in [place] by Dr. Fagan, at which time he [...] mg documented in this encounter Care Teams Appraisal Specialist Relationship Specialty Start Date End Date Ashley Calixto MD [address] [facility] 1 [place] [address] PCP - General 12/21/11 12/10/14 documented as of this encounter
--- OUTSIDE RECORDS SUMMARY | 2024-02-26 21:32 | XMS_ITS | Encounter Summary ---
Author Organization [facility] Address [facility] [place] [address] Care Team Providers Care Nipple Threader Name Role Phone Ashley Calixto MD Primary Care Provider [phone] Encounter Details Date Type Department Care Team (Latest Contact Info) Description 05/24/2012 1:42 PM EDT - 05/24/2012 11:59 PM EDT Hospital Encounter XRay at [address] [place] [address] Work related injury; Right ankle sprain Social [...] site documented in this encounter Care Teams Nipple Threader Relationship Specialty Start Date End Date Ashley Calixto MD [address] [place] [address] PCP - General 12/21/11 12/10/14 documented as of this encounter
--- OUTSIDE RECORDS SUMMARY | 2024-02-26 21:32 | XMS_ITS | Encounter Summary ---
Author Organization [facility] [place] [address] Care Team Providers Care Jacquard Card Lacer Name Role Phone Ashley Calixto MD Primary Care Provider [phone] Reason for Visit * Reason Comments Illness Encounter Details Date Type Department Care Team (Late st Contact Info) Description 11/27/2012 1:30 PM EDT Office [place] [address] Michelle Cobian MD [facility] [address] [place] [address] LTBI (latent tuberculosis infection) (Primary Dx) Discharge [...] had at least 5 TSTs done on retirement/long term intake, all of which have been at [facility]. He reports there has never been redness or induration, and he was told they were negative.He was working with a chemical and developed severe SOB for which he presented to [facility] and was told the CXR [...] - none known Healthcare work - none Longterm or homeless assisted experience - retirement up to a year 5 times [employer] [...] old and 16 yo. 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 PE [...] Michelle Cobian MD Infectious Diseases Attending Pager [phone] minutes were spent in this [id number] encounter, during which 30 was spent counseling. documented in this encounter Plan of Treatment Not on file documented as of this encounter Visit Diagnoses Diagnosis LTBI (latent tuberculosis infection)- Primary Nonspecific reaction to tuberculin skin test without active tuberculosis documented in this encounter Care Teams Jacquard Card Lacer Relationship Specialty Start Date End Date Ashley Calixto MD [address] [facility] 1 [place] [address] PCP - General 12/21/11 12/10/14 documented as of this encounter
--- OUTSIDE RECORDS SUMMARY | 2024-02-26 21:32 | XMS_ITS | Encounter Summary ---
[place] [address] Care Team Providers Care Montessori Paraprofessional Name Role Phone Ashley Calixto MD Primary Care Provider [phone] Encounter Details Date Type Department Care Team (Late st Contact Info) Description 07/12/2012 Telephone Dermatology at [facility] [address] [place] [address] Geri Styles MD Social History [...] on filedocumented in this encounter Care Teams Montessori Paraprofessional Relationship Specialty Start Date End Date Ashley Calixto MD [address] [facility] 1 [place] [address] PCP - General 12/21/11 12/10/14 documented as of this encounter
--- OUTSIDE RECORDS SUMMARY | 2024-02-26 21:32 | XMS_ITS | Encounter Summary ---
Author Organization [facility] Address [facility] [place] [address] Care Team Providers Care Child Abuse Worker Name Role Phone Ashley Calixto MD Primary Care Provider [phone] Encounter Details Date Type Department Care Team (Late st Contact Info) Description 11/12/2012 2:48 PM EDT - 11/12/2012 11:59 PM EDT Hospital Encounter XRay at [address] [place] [address] CLINIC, Michelle Montalvo MD [facility] [place] [address] LTBI (latent tuberculosis infection) Discharge Disposition: Home [...] tuberculosis documented in this encounter Care Teams Child Abuse Worker Relationship Specialty Start Date End Date Ashley Calixto MD [facility] [address] [place] [address] PCP - General 12/21/11 12/10/14 documented as of this encounter
--- OUTSIDE RECORDS SUMMARY | 2024-02-26 21:32 | XMS_ITS | Encounter Summary ---
[place] [address] Care Team Providers Care Molder Trimmer Name Role Phone Ashley Calixto MD Primary Care Provider [phone] Reason for Visit * Reason Comments Pruritus Encounter Details Date Type Department Care Team (Late st Contact Info) Description 06/11/2012 4:00 PM EDT Office Visit Dermatology [address] [facility] [address] [place] [address] Lj Moore MD [address], [facility] [place] [address] Neurodermatitis (Primary Dx) Social History Tobacco Use [...] hepatitis C but was told by his assistant professor of life sciences that he has very, very low titers and in fact desires to withhold initiation of treatment for the moment. The patient states that no one else at home has any dermatitis. He has an 18-year-old son and his significant other has no dermatitis. 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 He was seen at [facility] and treated with prednisone, doxycycline without significant improvement. 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 There is no evidence of a vasculitis. One option presented to the patient by Dr. Geri Styles at [facility] was for light treatment for this, and [...] chronicus documented in this encounter Care Teams Molder Trimmer Relationship Specialty Start Date End Date Ashley Calixto MD [address] [place] [address] [address] PCP - General 12/21/11 12/10/14 documented as of this encounter
--- OUTSIDE RECORDS SUMMARY | 2024-02-26 21:32 | XMS_ITS | Encounter Summary ---
[place] [address] Care Team Providers Care Plant Technician Name Role Phone Ashley Calixto MD Primary Care Provider [phone] Encounter Details Date Type Department Care Team (Latest Contact Info) Description 06/06/2013 3:54 PM EDT - 06/06/2013 11:59 PM EDT Hospital Encounter [place] [address] CLINIC, Ashley Michaels MD [address] [place] [address] Discharge Disposition: Home Social History [...] on filedocumented in this encounter Care Teams Plant Technician Relationship Specialty Start Date End Date Ashley Calixto MD [address] [place] [address] PCP - General 12/21/11 12/10/14 documented as of this encounter
--- OUTSIDE RECORDS SUMMARY | 2024-02-26 21:32 | XMS_ITS | Encounter Summary ---
Author Organization [facility] [place] [address] Care Team Providers Care Service Delivery Manager Name Role Phone Ashley Calixto MD Primary Care Provider [phone] Encounter Details Date Type Department Care Team (Late st Contact Info) Description 05/24/2012 Orders Only [place] [address] Lis Marsh MD [facility] [place] [address] Work related injury (Primary Dx); Right ankle [...] site documented in this encounter Care Teams Service Delivery Manager Relationship Specialty Start Date End Date Ashley Calixto MD [address] [place] [address] PCP - General 12/21/11 12/10/14 documented as of this encounter
--- OUTSIDE RECORDS SUMMARY | 2024-02-26 21:32 | XMS_ITS | Encounter Summary ---
[place] [address] Care Team Providers Care Gallery Director Name Role Phone Ashley Calixto MD Primary Care Provider [phone] Encounter Details Date Type Department Care Team (Late st Contact Info) Description 07/30/2013 Orders [place] [address] Meghana Gleason, RN Right knee pain (Primary [...] leg documented in this encounter Care Teams Gallery Director Relationship Specialty Start Date End Date Ashley Calixto MD [address] [place], [place] [id number] PCP - General 12/21/11 12/10/14 documented as of this encounter
--- OUTSIDE RECORDS SUMMARY | 2024-02-26 21:32 | XMS_ITS | Encounter Summary ---
Author Organization [facility] [place] [address] Care Team Providers Care Instructor Physical Education Name Role Phone Ashley Calixto MD Primary Care Provider [phone] Reason for Visit * Reason Comments Follow-up Encounter Details Date Type Department Care Team (Late st Contact Info) Description 05/24/2012 10:00 AM EDT [place] [address] Patience Whitman APRN Hepatitis C (Primary Dx); Rash Discharge Disposition: [...] this encounter Progress Notes * Patience Whitman, GARMENT PARTS CUTTER MACHINE - 05/24/2012 10:55 AM EDT Subjective: Patient [...] white male who was seen today at [facility] in follow-up [...] eruption documented in this encounter Care Teams Instructor Physical Education Relationship Specialty Start Date End Date Ashley Calixto MD [address] [place] [address] PCP - General 12/21/11 12/10/14 documented as of this encounter
--- OUTSIDE RECORDS SUMMARY | 2024-02-26 21:32 | XMS_ITS | Encounter Summary ---
[facility] Organization [facility] [place] [address] Care Team Providers Care Bed And Breakfast Cook Name Role Phone Ashley Calixto MD Primary Care Provider [phone] Encounter Details Date Type Department Care Team (Latest Contact Info) Description 07/27/2012 10:45 AM EDT - 07/27/2012 11:59 PM EDT Hospital [place] [id number] Chronic hepatitis C Social History Tobacco Use [...] mg documented in this encounter Care Teams Bed And Breakfast Cook Relationship Specialty Start Date End Date Ashley Calixto MD [address] [place] [address] PCP - General 12/21/11 12/10/14 documented as of this encounter
--- OUTSIDE RECORDS SUMMARY | 2024-02-26 21:32 | XMS_ITS | Encounter Summary ---
Author Organization [facility] [place] [address] Care Team Providers Care Tanner Rotary Drum Continuous Process Name Role Phone Ashley Calixto MD Primary Care Provider [phone] Reason for Visit * Reason Onset Date Comments Follow-up 07/30/2013 Encounter Details Date Type Department Care Team (Late st Contact Info) Description 07/30/2013 Telephone [place] [address] Lj Braden MD [facility] [place] [address] Follow-up Social History Tobacco Use Types Packs/Day [...] on filedocumented in this encounter Care Teams Tanner Rotary Drum Continuous Process Relationship Specialty Start Date End Date Ashley Calixto MD [address] [place] [address] PCP - General 12/21/11 12/10/14 documented as of this encounter
--- OUTSIDE RECORDS SUMMARY | 2024-02-26 21:32 | XMS_ITS | Encounter Summary ---
Author Organization [facility] [place] [address] Care Team Providers Care In Flight Refueling Operator Name Role Phone Ashley Calixto MD Primary Care Provider [phone] Reason for Visit * Reason Comments Hepatitis C Encounter Details Date Type Department Care Team ([facility] st Contact Info) Description 12/23/2011 3:30 PM EDT [place] [address] Rebecca Borrero, [facility] [place] [address] Chronic hepatitis C (Primary Dx) Discharge Disposition: [...] coma documented in this encounter Care Teams In Flight Refueling Operator Relationship Specialty Start Date End Date Ashley Calixto MD [address] [place] [address] PCP - General 12/21/11 12/10/14 documented as of this encounter
--- OUTSIDE RECORDS SUMMARY | 2024-02-26 21:32 | XMS_ITS | Encounter Summary ---
Author Organization [facility] Address [facility] [place] [address] Care Team Providers Care Wine Cellar Worker Name Role Phone Ashley Calixto MD Primary Care Provider [phone] Reason for Referral * Consultation (Routine) - Complete-Ref Provider Notified Specialty Diagnoses / Procedures Referred By Casey reyes Referred To Contact Dermatology Diagnoses Pruritus Geri Trevino MD [facility] [address] [place] [address] Lj Moore MD [address] [place] [address], [place] [address] Referral ID Status Reason Start Date Expiration Date Visits Requested Visits Authorized [id number] Complete-Ref Provider Notified Consult, Test & Treat 04/23/2012 10/20/2012 1 1 Reason for Visit * Reason Comments Dermatitis Encounter Details Date Type Department Care Team (Late st Contact Info) Description 04/23/2012 2:40 PM EST Follow-Up Dermatology at [facility] [address] [place] [address] Geri Trevino MD Pruritus (Primary Dx); Neoplasm of unspecified nature [...] or skin problems Social/Occupational History: 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 Moore in [facility] (closer for patient) to [...] concerns. Geri Trevino MD Resident in Dermatology [facility] Patient seen and evaluated with staff director of community education: Marcelina Berg MD Section of Dermatology [facility] documented in this encounter Plan of Treatment [...] 4:28 PM EST Pruritus COMPREHENSIVE METABOLIC PANEL Routine 04/23/2012 4:28 PM EST Pruritus SPECIMEN TO PATHOLOGY (NON-OR) Routine 04/23/2012 4:17 PM EST Neoplasm of unspecified nature of bone, soft tissue, and skin documented in this encounter Results * Surgical Pathology Report (04/23/2012 6:22 PM EST) Surgical Pathology Report ? [facility] ? Provider: ?? GERI TREVINO ? Pt. Name: ?? MERRYKALEY VINCENT ? Acc #: ?[id number] ? Pt. ? Col Date: ?? 04/23/2012 [...] macule. ? Sections/Processing: ??Inked. ??Trisected. ??(T1) ? [facility] ? Provider: ?? GERI TREVINO ? Pt. Name: ?? KALEY SOUSA ? Acc #: ?[id number] ? Pt. ? Col Date: ?? 04/23/2012 [...] EST Geri Trevino MD PATHOLOGY/CYTOLOGY O RDERABLES CERNER MILLENNIUM * (ABNORMAL) Differential, Automated (04/23/2012 4:28 PM EST) Neutrophil % 59.7 34.0 - 71.0 % CERNER MILLENNIUM Neutrophil Absolute 4.71 1.50 - 6.30 x10(3)/mc L CERNER MILLENNIUM Lymph % 32.4 19.0 - 53.0 % CERNER MILLENNIUM Lymphocytes Abs 2.6 1.0 - 3.6 x10(3)/mc L CERNER MILLENNIUM Monocyte % 4.3 4.0 - 13.0 % CERNER MILLENNIUM Monocyte Abs 0.3 0.2 - 1.0 x10(3)/mc L CERNER MILLENNIUM Eos % 2.4 0.0 - 7.0 % CERNER MILLENNIUM Eosinophils Abs 0.2 0.0 - 0.5 x10(3)/mc L CERNER MILLENNIUM Basophil % 0.3 0.0 - 2.0 % CERNER MILLENNIUM Baso [...] differential will be performed. Immature Gran Absolute 0.07(H) 0.00 - 0.05 x10(3)/mc L CERNER MILLENNIUM Blood specimen (specimen) 04/23/2012 4:28 PM EST 04/23/2012 6:11 PM EST Marcelina Berg MD HEMATOLOGY ORDERABLE S CERNER RAENNIUM * (ABNORMAL) Comprehensive metabolic panel (non-fasting) (04/23/2012 4:28 PM EST) [facility] Glucose 128 60 - 199 mg/dL CERNER MILLENNIUM Comment:Diabetes: >=200 mg/d L plus symptoms Blood Urea Nitrogen 9(L) 10 - 20 mg/dL CERNER MILLENNIUM Creatinine 0.87 0.80 - 1.50 mg/dL CERNER MILLENNIUM Comment: Please note that the pediatric reference intervals supplied above were not validated at [facility]. Results from pediatric patients should be interpreted [...] 8.7 8.5 - 10.5 mg/dL CERNER MILLENNIUM Protein, Total 7.3 6.4 - 8.3 gm/dL CERNER MILLENNIUM Albumin 3.8 3.2 - 5.2 gm/dL CERNER MILLENNIUM Aspartate Aminotransferase Not Perf 0 - 39 unit/L CERNER MILLENNIUM Comment: Specimen hemolyzed MTF Alanine Aminotransferase 49 0 - 55 unit/L CERNER MILLENNIUM Alkaline Phosphatase 101 40 - 120 unit/L CERNER MILLENNIUM Bilirubin, Total 0.1(L) 0.2 - 1.3 mg/dL CERNER MILLENNIUM Bilirubin, Direct <0.1 0.0 - 0.3 mg/dL CERNER MILLENNIUM Est [...] In Lab Marcelina Berg MD CHEMISTRY ORDERABLES CERNER RAENNIUM * CBC (with Diff) (04/23/2012 4:28 PM EST) White Blood Cell 7.9 4.0 - 10.0 x10(3)/mcL CERNER MILLENNIUM Red Blood Cell 4.69 4.63 - 6.08 x10(6)/mcL CERNER MILLENNIUM Hemoglobin 13.8 13.7 - 17.5 gm/dL CERNER MILLENNIUM Hematocrit 41.7 40.0 - 51.0 % CERNER MILLENNIUM Mean Cell Volume 88.9 79.0 - 92.0 fL CERNER MILLENNIUM Mean Cell Hemoglobin 29.4 25.6 - 32.2 pg CERNER MILLENNIUM Mean Cell Hemoglobin Concentration 33.1 32.0 - 36.5 gm/dL CERNER MILLENNIUM Platelet 172 145 - 370 x10(3)/mcL CERNER MILLENNIUM RDW Standard Deviation 41.5 35.0 - 46.0 fL CERNER MILLENNIUM RDW coefficient of variation 13.0 10.9 - 14.4 % CERNER MILLENNIUM Mean Platelet Volume 11.3 9.0 - 12.0 fL CERNER MILLENNIUM Blood specimen (specimen) 04/23/2012 4:28 PM EST 04/23/2012 6:11 PM EST Narrative Resulting Agency Comment Spec In Lab Marcelina Berg MD HEMATOLOGY ORDERABLE S RANDY LOVEIUM * Specimen to Pathology (NON-OR) (04/23/2012 4:17 PM EST) AP Specimen 04/23/2012 4:17 PM EST 04/23/2012 4:16 PM EST Narrative RANDY MORALES - 04/23/2012 4:17 PM EST Specimen requisition ordered. ??Separate Pathology report to follow Marcelina Berg MD PATHOLOGY/CYTOLOGY O RDERABLES RANDY MORALES documented in this encounter Visit Diagnoses Diagnosis Pruritus- Primary Unspecified pruritic disorder Neoplasm of unspecified nature of bone, soft tissue, and skin documented in this encounter Care Teams Wine Cellar Worker Relationship Specialty Start Date End Date Ashley Calixto MD [facility] [address] [place] [address] PCP - General 12/21/11 12/10/14 documented as of this encounter
--- OUTSIDE RECORDS SUMMARY | 2024-02-26 21:32 | XMS_ITS | Encounter Summary ---
[place] [address] Care Team Providers Care Logging Supervisor Name Role Phone Ashley Calixto MD Primary Care Provider [phone] Encounter Details Date Type Department Care Team (Latest Contact Info) Description 06/27/2012 4:00 PM EDT Ancillary Appointment Dermatology at [address] [address] Geri Styles MD Rash (Primary Dx) Social History Tobacco Use [...] supervision with direct supervision immediately available. (definition: [facility] Policy Statement on Graduate Medical Education, Supervision of Graduate Medical Trainees) I was immediately available to Dr. Styles for questions and discussion regarding this visit. I have reviewed her encounter note details and level of service. * Geri Styles MD - 06/26/2012 8:32 PM EDT DERMATOLOGY [place] NOTE 06/26/2012 Zack Langley [id number] Geri Styles MD Chief Resident in Dermatology [...] Workup: ?? nbUVB - could come to [facility] ?? Pimozide or other (seroquel, zyprexa, etc) ?? Consult with primary provider and/or psychiatry for management of medications Geri Styles MD PGY-3 documented in this encounter Plan of Treatment Not on file documented as of this encounter Visit Diagnoses Diagnosis Rash- Primary Rash and other nonspecific skin eruption documented in this encounter Care Teams Logging Supervisor Relationship Specialty Start Date End Date Ashley Calixto MD [facility] [address] [place] [address] PCP - General 12/21/11 12/10/14 documented as of this encounter
--- OUTSIDE RECORDS SUMMARY | 2024-02-26 21:33 | XMS_ITS | Encounter Summary ---
Author Organization [facility] [place] [address] Care Team Providers Care Press Box Custodian Name Role Phone Dwain, Yeyoalyce Mo KAPLAN Primary Care Provider [phone] Encounter Details Date Type Department Care Team (Late st Contact Info) Description 10/28/2011 Orders [place] [address] Lj Braden MD [facility] [place] [address] Knee pain (Primary Dx) Social History Tobacco [...] leg documented in this encounter Care Teams Press Box Custodian Relationship Specialty Start Date End Date Awilda Prakash, ROSAURA PCP - General 08/25/11 12/20/11 documented as of this encounter
--- OUTSIDE RECORDS SUMMARY | 2024-02-26 21:33 | XMS_ITS | Encounter Summary ---
Author Organization [facility] [place] [address] Care Team Providers Care Port Captain Name Role Phone Awilda Prakash APRN Primary Care Provider [phone] Encounter Details Date Type Department Care Team (Late st Contact Info) Description 03/02/2011 Orders [place] [address] Lj Braden MD [facility] [place] [address] Social History Tobacco Use Types Packs/Day Years [...] PM EST) 03/02/2011 2:30 PM EST Narrative [facility] - 09/10/2013 10:34 AM EDT This is a non-reportable exam. Procedure Note Florencio Pereira - 09/10/2013 This is a non-reportable exam. Lj Braden MD IM FILM LIBRARY ORD ERABLES RAD [address] [place] [address] documented in this encounter Visit Diagnoses Not on filedocumented in this encounter Care Teams Port Captain Relationship Specialty Start Date End Date Awilda Prakash APRN PCP - General 08/25/11 12/20/11 documented as of this encounter
--- OUTSIDE RECORDS SUMMARY | 2024-02-26 21:33 | XMS_ITS | Encounter Summary ---
Author Organization [facility] Address [facility] [place] [address] Care Team Providers Care Cigar Tobacco Rehandler Name Role Phone Awilda Prakash APRN Primary Care Provider [phone] Encounter Details Date Type Department Care Team (Late st Contact Info) Description 11/07/2011 9:40 AM EDT - 11/07/2011 11:59 PM EDT Hospital Encounter XRay at [address] [place] [address] Social History Tobacco Use Types Packs/Day Years [...] on filedocumented in this encounter Care Teams Cigar Tobacco Rehandler Relationship Specialty Start Date End Date Awilda Prakash APRN PCP - General 08/25/11 12/20/11 documented as of this encounter
--- OUTSIDE RECORDS SUMMARY | 2024-02-26 21:33 | XMS_ITS | Encounter Summary ---
Author Organization [facility] Address [facility] [place] [address] Care Team Providers Care Lunchroom Monitor Name Role Phone Awilda Prakash APRN Primary Care Provider [phone] Encounter Details Date Type Department Care Team (Late st Contact Info) Description 11/07/2011 9:39 AM EDT Hospital Encounter XRay at [address] [place] [address] Knee pain Social History Tobacco Use Types [...] leg documented in this encounter Care Teams Lunchroom Monitor Relationship Specialty Start Date End Date Awilda Prakash APRN PCP - General 08/25/11 12/20/11 documented as of this encounter
--- OUTSIDE RECORDS SUMMARY | 2024-02-26 21:33 | XMS_ITS | Encounter Summary ---
Author Organization [facility] [place] [address] Care Team Providers Care Senior Data Warehouse Developer Name Role Phone Awilda Prakash Mo KAPLAN Primary Care Provider [phone] Reason for Referral * Physical Therapy (Routine) - Complete - Patient Will Schedule External Appt Specialty Diagnoses / Procedures Referred By Casey t Referred To Contact Physical Therapy Diagnoses Knee pain Lj Braden MD [facility] [place] [address] Referral ID Status Reason Start Date Expiration Date Visits Requested Visits Authorized [id number] Complete - Patient Will Schedule External Appt Evaluate and Treat 11/07/2011 05/05/2012 15 15 Reason for Visit * Reason Comments Left Knee Pain second opinion worke rs comp DOI 12/30/10 Encounter Details Date Type Department Care Team (Late st Contact Info) Description 11/07/2011 10:40 AM EDT Office [place] [address] Lj Braden MD [facility] [place] [address] Knee pain (Primary Dx) Discharge Disposition: Home [...] The knee cap tenderness has improved. 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
--- OUTSIDE RECORDS SUMMARY | 2024-02-26 21:33 | XMS_ITS | Encounter Summary ---
Author Organization [facility] [place] [address] Care Team Providers Care Box Office Agent Name Role Phone Awilda Prakash APRN Primary Care Provider [phone] Encounter Details Date Type Department Care Team (Late st Contact Info) Description 03/05/2010 Orders [place] [address] Lj Braden MD [facility] [place] [address] Social History Tobacco Use Types Packs/Day Years Used Date Smoking Tobacco: Never Assessed Sex and Gender Information Value Date Recorded Sex Assigned at Not on file Gender Identity Not on file Sexual Orientation Not on file documented as of this encounter Plan of Treatment Not on file documented as of this encounter Visit Diagnoses Not on filedocumented in this encounter Care Teams Box Office Agent Relationship Specialty Start Date End Date Awilda Prakash APRN PCP - General 08/25/11 12/20/11 documented as of this encounter
--- OUTSIDE RECORDS SUMMARY | 2024-02-26 21:33 | XMS_ITS | Encounter Summary ---
Author Organization [facility] [place] [address] Care Team Providers Care Lot Technician Name Role Phone Awilda Prakash APRN Primary Care Provider [phone] Encounter Details Date Type Department Care Team (Late st Contact Info) Description 10/28/2011 Orders [place] [address] Lj Braden MD [facility] [place] [address] Social History Tobacco Use Types Packs/Day Years [...] on filedocumented in this encounter Care Teams Lot Technician Relationship Specialty Start Date End Date Awilda Prakash APRN PCP - General 08/25/11 12/20/11 documented as of this encounter
--- OUTSIDE RECORDS SUMMARY | 2024-02-26 21:33 | XMS_ITS | Encounter Summary ---
[place] [address] Care Team Providers Care Teacher Aide Name Role Phone Awilda Prakash APRN Primary Care Provider [phone] Reason for Visit * Reason Comments GI Problem Encounter Details Date Type Department Care Team (Late st Contact Info) Description 09/02/2011 3:30 PM EDT Office [place] [address] Patience Whitman APRN Chronic hepatitis C without mention of [...] this encounter Progress Notes * Patience Whitman, OPERATIONS STAFF SPECIALIST SECURITY - 09/02/2011 6:09 PM EDT Subjective: Patient ID: Zack Langley is a 41 y.o. male. HPI Mr. Langley is a pleasant 41 year old white male who was seen today at [facility] in consultation for hepatitis C [...] and sober since 03/10. Hx IV drugs [id number]. Hx intranasal drugs [id number]. ??? 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 He injured left knee and underwent arthroscopy in February. Knee is not getting better. He continues to be out on worker's compensation.He has hx of IVDU [id number] 2012Hx of intranasal drug use 1986-1999Has 2 tattoos he received in group home in 1989 and 1999.Pierced ear in 1992 at home, shared needles.He sees psychiatrist, Dr. Baron, in [facility].He sees drug counselor Yanira Chahal x [...] Final 11/11/2011 11:12 am) Patient Info ID: ?[id number] ?: [birth year] (41 yrs) Name: ?ZACK LANGLEY ?Visit Date: 11/11/2011 10:40 am Performed By Performed By: ?Yanira Everett RDME Attending: ? Fermin WEBSTER, Arnulfo Sosa Referred By: ? MENDEZ CUENCA MD Service(s) Provided [facility] - Abdominal Complete Survey - [id number] ? [id number] Indications HCV Comparison None ----- Liver ----- [...] Final 11/11/2011 11:12 am) Patient Info ID: [id number] : [birth year] (41 yrs) Name: ZACK LANGLEY Visit Date: 11/11/2011 10:40 am Performed By Performed By: Yanira Everett [facility] Attending: Arnulfo Christensen MD Referred By: MENDEZ CUENCA MD Service(s) Provided [facility] - Abdominal Complete Survey - [phone] [id number] Indications HCV Comparison None ----- Liver ----- [...] coma documented in this encounter Care Teams Teacher Aide Relationship Specialty Start Date End Date Awilda Prakash, OPERATIONS STAFF SPECIALIST SECURITY PCP - General 08/25/11 12/20/11 documented as of this encounter
--- OUTSIDE RECORDS SUMMARY | 2024-02-26 21:33 | XMS_ITS | Encounter Summary ---
Author Organization [facility] Address [facility] [place] [address] Care Team Providers Care Touch Up Edger Name Role Phone Awilda Prakash APRN Primary Care Provider [phone] Encounter Details Date Type Department Care Team (Late st Contact Info) Description 10/29/2011 External Results XRay at [address] [place] [address] Mihir Dee APRN [address] [place] [address] Social History Tobacco Use Types Packs/Day Years [...] on filedocumented in this encounter Care Teams Touch Up Edger Relationship Specialty Start Date End Date Awilda Prakash, ROSAURA PCP - General 08/25/11 12/20/11 documented as of this encounter
--- OUTSIDE RECORDS SUMMARY | 2024-02-26 21:33 | XMS_ITS | Encounter Summary ---
Author Organization [facility] [place] [address] Care Team Providers Care It Security Analyst Name Role Phone Awilda Prakash APRN Primary Care Provider [phone] Encounter Details Date Type Department Care Team (Late st Contact Info) Description 01/03/2011 Orders [place] [address] Lj Braden MD [facility] [place] [address] Social History Tobacco Use Types Packs/Day Years [...] MD IM FILM LIBRARY ORD ERABLES RAD [address] [place] [address] documented in this encounter Visit Diagnoses Not on filedocumented in this encounter Care Teams It Security Analyst Relationship Specialty Start Date End Date Awilda Prakash APRN PCP - General 08/25/11 12/20/11 documented as of this encounter
--- OUTSIDE RECORDS SUMMARY | 2024-02-26 21:33 | XMS_ITS | Encounter Summary ---
[place] [address] Care Team Providers Care Resist Coater Developer Name Role Phone Awilda Prakash ROSAURA Primary Care Provider [phone] Reason for Visit * Reason Comments Dermatitis Encounter Details Date Type Department Care Team (Late st Contact Info) Description 10/28/2011 2:10 PM EDT [place] [address] Jordy Trevino MD Folliculitis (Primary Dx); Rash Discharge Disposition: Home [...] as documented in Dr. Trevino's note. * Jordy Trevino MD - 10/28/2011 2:28 PM EDT DERMATOLOGY - NEW PATIENT NOTE Zack Langley Date of service: 10/28/2011 : 1970 Dermatology Resident Note: Jodry Trevino MD Chief Problem: Rash Mr. 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 Genitalia were not examined. Specific skin findings: 1. Multiple excoriated erythematous papules and nodules, many with heme crust Past biopsies reviewed from OSH: (will scan into e-) Sparse perivacsular dermatitis with epidermal hyperplasia and [...] weeks. Instructed to call for questions, concerns. Jordy Trevino MD Resident in Dermatology [facility] Patient seen and evaluated with staff leach cell operator: Mihir Zapata MD Section of Dermatology [facility] Copy of note faxed to PCP, [...] 4:18 PM EDT) Surgical Pathology Report ? [facility] ? Provider: ?? JORDY TREVINO ? Pt. Name: ?? ZACK LANGLEY ? Acc #: ?[id number] ? Pt. ? Col Date: ?? 10/28/2011 [...] 11/02/11 Verified by: ? Eron WEBSTER, Naye Hassan ? Dermatopathologist ? (Electronic Signature) ? The [...] ? hodge macule, 0.2-cm in diameter. ? [facility] ? Provider: ?? JORDY TREVINO ? Pt. Name: ?? ZACK LANGLEY ? Acc #: ?[id number] ? Pt. ? Col Date: ?? 10/28/2011 [...] vs perforating ? dermatosis vs [facility] 10/28/2011 4:18 PM EDT Jordy Trevino MD PATHOLOGY/CYTOLOGY O RDERABLES Performing Organization Address [facility] Co de Phone Number [facility] * Specimen to Pathology (NON-OR) (10/28/2011 2:36 PM EDT) AP Specimen 10/28/2011 2:36 PM EDT 10/28/2011 2:43 PM EDT Narrative [facility] - 10/28/2011 2:43 PM EDT Specimen requisition ordered. ??Separate Pathology report to follow Mihir Zapata MD PATHOLOGY/CYTOL OGY ORDERABLES Performing Organization Address [facility] Co de Phone Number [facility] documented in this encounter Visit Diagnoses Diagnosis Folliculitis- Primary Other specified disease of hair and hair follicles Rash Rash and other nonspecific skin eruption documented in this encounter Care Teams Resist Coater Developer Relationship Specialty Start Date End Date Awilda Prakash, NURSES' REGISTRY DIRECTOR PCP - General 08/25/11 12/20/11 documented as of this encounter
--- OUTSIDE RECORDS SUMMARY | 2024-02-26 21:33 | XMS_ITS | Encounter Summary ---
[place] [address] Care Team Providers Care Gimp Tacker Name Role Phone Awilda Prakash APRN Primary Care Provider [phone] Encounter Details Date Type Department Care Team (Late st Contact Info) Description 10/28/2011 External Results [place] [id number] Provider, Scanning Social History Tobacco Use Types [...] on filedocumented in this encounter Care Teams Gimp Tacker Relationship Specialty Start Date End Date Awilda Prakash APRN PCP - General 08/25/11 12/20/11 documented as of this encounter
[2024-02-26 22:31] LABS: Anion Gap 12.6 mmol/L (3-11); BUN 13 mg/dL (7-18); CO2 26.4 mmol/L (21.0-32.0); CREATININE 0.9 mg/dL (0.70-1.30); Calcium 10.1 mg/dL (8.5-10.1); Chloride 95 mmol/L (98-107); Estimated GFR 100.86 (mL/min/1.73m2); Glucose 75 mg/dL (74-106); Potassium 4.8 mmol/L (3.5-5.1); Sodium 134 mmol/L (136-145)
[2024-02-27 20:08] LABS: PSA, Screening 0.3 ng/mL (<=3.5)
== END 2024-02-26 21:28 | disposition home or self-care (01) ==
LOC: NCHCN 21:27
PROVIDERS: PCP Family Medicine; Visit Provider Family Medicine
DX: R33.9 Retention of urine, unspecified (principal); Z12.5 Encounter for screening for malignant neoplasm of prostate
CPT/HCPCS: 80048; 84153

== ENCOUNTER 2024-06-11 15:51 | Outpatient (REF) | payer MEDICAID, SELFPAY ==
[2024-06-11 17:18] LABS: COMMENT (LAB VIEW ONLY) 20.01 mg/dL
== END 2024-06-11 15:52 | disposition home or self-care (01) ==
LOC: NCHCN 15:51
PROVIDERS: PCP Family Medicine; Visit Provider Family Medicine
DX: E11.9 Type 2 diabetes mellitus without complications (principal)
CPT/HCPCS: 82043; 82570

== ENCOUNTER 2024-09-12 16:49 | Outpatient (REF) | payer MEDICAID, SELFPAY ==
[2024-09-18 12:29] LABS: Cocaine Interpretation Positive.
== END 2024-09-12 16:50 | disposition home or self-care (01) ==
LOC: NCHCN 16:49
PROVIDERS: PCP Family Medicine; Visit Provider Family Medicine
DX: F11.21 Opioid dependence, in remission (principal); Z79.899 Other long term (current) drug therapy
CPT/HCPCS: 80353

== ENCOUNTER 2024-10-03 03:15 | Outpatient (CLI) | payer MEDICAID, SELFPAY ==
--- NOTE | 2024-10-03 | DI.CTLCSR_ITS ---
Exam(s) CT CHEST LUNG CANCER SCREEN EXAM: CT CHEST LUNG CANCER SCREEN CLINICAL HISTORY: TOBACCO USE Z72.0 SCREENING LUNG CANCER TECHNIQUE: Imaging Protocol: Axial computed tomography images with coronal and sagittal reformatted images were created and reviewed. Lung Computer Aided Detection (CAD) was utilized. COMPARISON: CT CT CHEST LUNG CANCER SCREEN from 09/29/2023 FINDINGS: Tracheobronchial tree: Patent where visualized. No bronchiectasis. Pulmonary parenchyma: No consolidation or dominant measurable mass. No architectural distortion. Lung Nodules: There are no suspicious pulmonary nodules. Mediastinum and Faye: No dominant adenopathy or fluid collection. The esophagus is unremarkable. Thyroid gland: Unremarkable. Lymph nodes: Unremarkable. Pleura: No effusion or pneumothorax. Heart: The heart is not dilated. There is mild coronary artery calcification. No pericardial effusion. Aorta: Thoracic aorta non-dilated.Atherosclerotic calcification is present. Upper abdomen: Unremarkable. Soft Tissues: There is gynecomastia, right greater than left. Bones: Within normal limits. IMPRESSION: There are no suspicious pulmonary nodules. Lung RADS Cat 1 - Negative: No nodules and definitely benign nodules Lung-RADS 1.0 CATEGORIES: Category 0 - Prior chest CT exam(s) being located for comparison. Category 1 - Annual screening in 12 months. No nodules or definitely benign nodules. Category 2 - Annual screening in 12 months. Benign appearance. Nodules with low likelihood of becoming active cancer. Category 3 - 6-month follow-up. Probably benign. Short-term follow-up suggested. Nodules with low likelihood of becoming active cancer. Category 4A - 3-month follow-up and CT/PET if >8 mm in size. Suspicious finding. Findings which require additional testing. Category 4B - Findings which require additional testing and tissue sampling. Suspicious finding. Category 4X - Category 3 or 4 nodules with additional features or imaging findings that increases the suspicion of malignancy. Modifier S- Potentially clinically significant finding. (Non lung cancer) RADIATION DOSE DELIVERED: 108.04mGy.cm Total DLP 108.04mGy.cmTotal DLP DATA REPOSITORY: All CT scans at this facility are submitted to the National Radiology Data Registry (NRDR) Dose Index Registry (DIR) with the [employer] ([employer]). RADIATION OPTIMIZATION: All CT scans at this facility use at least one of these dose optimization techniques: automated exposure control; mA and/or kV adjustment per patient size (includes targeted exams where dose is matched to clinical indication); or iterative reconstruction.
== END 2024-10-03 03:35 ==
PROVIDERS: PCP Family Medicine; Visit Provider Family Medicine
DX: Z12.2 Encounter for screening for malignant neoplasm of respiratory organs (principal); Z72.0 Tobacco use
CPT/HCPCS: 71271

== ENCOUNTER 2024-11-19 18:34 | Outpatient (REF) | payer MEDICAID, SELFPAY | END 2024-11-19 18:35 | disposition home or self-care (01) | LOC: NCHCN 18:34 | PROVIDERS: PCP Family Medicine; Visit Provider Family Medicine | DX: L02.91 Cutaneous abscess, unspecified (principal) | CPT/HCPCS: 87077; 87070; 87186; 87205 ==